=== PATIENT | female | born 1945 | race Caucasian/White ===

== ENCOUNTER 2018-09-16 15:34 | Outpatient (REF) | payer MEDICARE, SELFPAY ==
[2018-09-16 19:39] LABS: Bilirubin Negative (Negative); Blood Negative (Negative); Clarity Sl Cloudy; Glucose Negative (Negative); Ketones Negative (Negative); Leukocyte Esterase Trace (Negative); Nitrite Negative (Negative); Specific Gravity 1.025 (1.005-1.025); Urobilinogen 0.2 EU/dL (Up TO 0.2); pH 5.5 (5-8)
[2018-09-16 19:43] LABS: Anion Gap 8.6 mmol/L (3-11); BUN 13 mg/dL (7-18); CO2 26.4 mmol/L (21.0-32.0); CREATININE 1.46 mg/dL (0.55-1.02); Calcium 7.7 mg/dL (8.5-10.1); Chloride 105 mmol/L (98-107); Estimated GFR 35.22 (mL/min/1.73m2); Glucose 104 mg/dL (70-100); Potassium 3.3 mmol/L (3.5-5.1); Sodium 140 mmol/L (136-145)
== END 2018-09-16 15:54 ==
LOC: NCHCN 15:34
PROVIDERS: PCP Nurse Practitioner Family; Visit Provider Family Medicine
DX: N28.9 Disorder of kidney and ureter, unspecified (principal); R60.0 Localized edema
CPT/HCPCS: 80048; 81003; 81015

== ENCOUNTER 2019-05-23 15:53 | Emergency (ER) | payer MEDICARE, SELFPAY ==
[2019-05-23] VITALS (60 sets, daily range): BP systolic 96–159; BP diastolic 38–138; PULSE 84–107; RESP 14–36; TEMP 36.7; O2SAT 90–96
[2019-05-23 16:23] LABS: BE (Venous) 0.2 mmol/L (-3-3); HCO3 (Venous) 25 mmol/L (22-28); O2 Sat (Venous) 44 % (70-80); TCO2 (Venous) 24 mmol/L (22-29); pCO2 (Venous) 43 mm/Hg (34-47); pH (Venous) 7.38 (7.32-7.43); pO2 (Venous) 26 mm/Hg (28-44)
--- NOTE | 2019-05-23 16:28 | W.ED.GENAD ---
Discharge Plan Disposition Patient Disposition: [facility] Condition: Stable Discharge Details Chief Complaint: Chest Pain Clinical Impression: Unstable angina Primary Care Provider: Tiana Romano ED Provider: Soham Pino Home Meds and New Rx's Prescriptions: No Action omeprazole 40 MG capsule,delayed release(DR/EC) 40 mg PO DAILY RF: 0 Medical Decision Making This is a pleasant 73-year-old female who presents today for evaluation of chest pain. It began 2 to 3 hours ago while she was slicing potatoes. She has associated shortness of breath and pleuritic chest pain. She does have a history of breast and colon cancer 2 years ago. She was given full dose aspirin and nitroglycerin had notable improvement of her symptoms with EMS nitro. Initial EKG shows less than [address] elevation of V2, small Q wave in V4 V5 and V6, no other significant abnormalities. Signs and symptoms are certainly concerning for cardiac etiology of her pain. With no evidence of STEMI on EKG, will continue with laboratory work-up. We will get CT angios to rule out dissection and PE with a history of cancer. We will heparinize the patient, and start her on a nitroglycerin drip. 6:52 PM Patient has had notable improvement of her pain with the nitroglycerin. She is gone from a greater than 10 out of 10 to less than 5 out of 10. She is feeling notably improved with the nitro drip. Currently it is at [address] angiogram results shows no evidence of acute pulmonary emboli dissection or pneumonia per virtual radiology. There is some old compression fractures of the lumbar vertebra, however the patient states that she does know about these already. There is concern for metastatic component however no other lesions are noted. Laboratory work-up shows a hemoglobin of 11.2 which is higher than her normal, renal function appears stable with a creatinine of 1.12. Troponin is less than 0.05. I discussed the case with Dr. Toledo at [facility], and reviewing the case, and the patient's clinical symptoms there is notable concern for unstable angina with her age, cardiac risk factors and symptomatology and nitro improvement. Dr. Cervantes will be the admitting physician. The patient will be transferred by [facility] further management. Heparin and nitro were continued, Plavix will be given. She is already received full dose aspirin. I have extensively reviewed the treatment plan and discharge instructions with the patient. I have addressed all patient concerns at this time. The patient was made aware of what symptoms to monitor for that would warrant a return to the emergency department. Discussed the plan with the patient, they demonstrate verbal understanding and agreement with our assessment and plan at this time. At time of transfer the patient was reassessed and continued to demonstrate current medical stability. No signs of acute respiratory distress requiring intubation, hemodynamic instability requiring pressor support, or rapidly declining mental status. The patient is stable for transport. EKG 16: 00 Rate 81, VT 162, QTc 476, QRS 96, sinus rhythm, less than [address] elevation in V2, no other significant elevation. No significant depression. No inverted T waves. Small Q waves in V4 V5 and V6. FINDINGS: Pulmonary arteries: Normal. No pulmonary emboli. Aorta: Heart: There are is severe atherosclerosis of the thoracic aorta. The the heart is moderately enlarged. There is a pericardial effusion focally measuring up to 19 mm in thickness. Lungs: This prominent pleural-parenchymal scarring in the right upper lobe and mild scarring at the lung bases as well as in the lingula. Pleural space: . No pneumothorax. No pleural effusion. Gallbladder and bile ducts: There is a hepatic artery passing beneath the inferior aspect of the gallbladder. No definite stones are seen the gallbladder. There is no pericholecystic fluid or gallbladder wall thickening. However the common bile duct is dilated to 10 mm. No definite stone is seen within the common bile duct nor is there evidence of a stricture. The visualized pancreas shows no abnormality. The pancreatic duct is within normal limits. Lymph nodes: Unremarkable. No enlarged lymph nodes. Bones/joints: There are 2 contiguous compression fractures in the lower images. I believe these are probably L1 and L2. the compression fracture of L1 is a proximally 70% and of L2 60%. L1 is somewhat sclerotic. A believe the sagittal view of the CT of 12/10/2017 shows these 2 vertebra to be normal in appearance. however, abnormalities were seen in L1 and L2 on the MRI apparently of 01/20/2018. Unfortunately I do not have these images available for comparison. Soft tissues: Unremarkable. IMPRESSION: 1. No evidence of pulmonary emboli or acute pneumonia. 2. Compression fractures of L1 and L2. Appearance of L1 is somewhat worrisome for metastatic disease. On the final report correlation with MRI in January of 2018 is suggested. 3. Dilatation the common bile duct without evidence of stones. Clinical correlation suggested to evaluate if additional studies of the bili track are needed. Thank you for allowing us to participate in the care of your patient. Dictated and Authenticated by: Jero Banegas MD [facility] General Date/Time Provider Initiated Documentation: 05/23/19 15:57. HPI Narrative: This is a 73-year-old female with a past medical history of breast cancer and colon cancer in 2016,17, cholecystectomy, hypertension, previous tobacco abuse, who presents today for evaluation of chest pain. The patient states that 2 to 3 hours ago she was slicing potatoes for dinner when she developed sudden substernal chest pain, it radiates to her neck bilaterally. She does have associated chest heaviness, with shortness of breath and pleuritic chest pain. She denies any recent worsening of the symptoms or symptoms over the last few days, just today. She denies any vomiting or diarrhea but does admit to notable nausea. She denies any previous history of ND, stroke, or PE. She denies any pain in her arms or shoulders. She denies any recent long trips, surgeries or procedures. No other modifying factors. No other complaints at this time. Related Data Home Medications Medication Instructions Recorded Confirmed omeprazole 40 mg PO DAILY 01/19/18 05/23/19 Allergies Allergy/AdvReac Type Severity Reaction Status Date / Time No Known Allergies Allergy Unverified 01/19/18 09:19 General Stated Complaint: Chest Pain JEANIE: 2 Review of Systems Review of Systems All systems reviewed & are unremarkable except as noted in HPI and below PFSH Social History Smoking/Tobacco Use Status: Former Tobacco Use Alcohol Intake: never Drug use: Never Substance use type: does not use Do you feel safe in your relationship?: Yes Exam Narrative Exam Narrative: 1.Const: Well-nourished, Well-developed, appearing stated age 2.Eyes: PERRL, no conjunctival injection, and symmetrical lids. 3.ENT: Atraumatic external nose and ears. Moist MM. Neck: Symmetric, trachea midline, No thyromegaly. 4.CVS: +S1/S2, No murmurs or gallops. Peripheral pulses 2+ and equal in all extremities. Brisk capillary refill in all extremities. Radial pulses +2 bilaterally. 5.RESP: Unlabored respiratory effort. Clear to auscultation bilaterally. No wheezes rales or rhonchi 6.GI: Soft, Nontender/Nondistended, No hepatosplenomegaly. No guarding or rebound. 7.MSK: Normocephalic/Atraumatic, Extremities w/o deformity or ttp No cyanosis or clubbing, Normal movement of all extremities. No pitting edema. 8.Skin: Warm, Dry. No rashes or lesions. 9.Neuro: filament maker II-XII grossly intact. Sensation grossly intact, no focal neurologic deficits. 10.Psych: (AAO) x3. Appropriate mood and affect Course Vital Signs Temperature 36.7 C 05/23/19 15:57 Pulse 89 05/23/19 15:57 Respiratory Rate 16 05/23/19 15:57 Blood Pressure 159/138 H 05/23/19 15:57 Pulse Oximetry 96 05/23/19 15:57 Temperature 36.7 C 05/23/19 15:57 Temperature Source Temporal Artery Scan 05/23/19 15:57 Pulse 89 05/23/19 15:57 Respiratory Rate 16 05/23/19 15:57 Respiratory Effort Short of Breath 05/23/19 16:11 Respiratory Depth Normal 05/23/19 16:11 Respiratory Pattern Normal 05/23/19 16:11 Blood Pressure 159/138 H 05/23/19 15:57 Pulse Oximetry 96 05/23/19 15:57 Oxygen Delivery Method Room Air 05/23/19 15:57 Oxygen Flow Rate 0 05/23/19 15:57 Pain Level 8 05/23/19 16:11
--- NOTE | 2019-05-23 16:31 | ED.GENADUL_ITS ---
Discharge Plan Disposition Patient Disposition: [facility] Condition: Stable Discharge Details Chief Complaint: Chest Pain Clinical Impression: Unstable angina Primary Care Provider: Tiana Romano ED Provider: Soham Pino Home Meds and New Rx's Prescriptions: No Action omeprazole 40 MG capsule,delayed release(DR/EC) 40 mg PO DAILY RF: 0 Medical Decision Making This is a pleasant 73-year-old female who presents today for evaluation of chest pain. It began 2 to 3 hours ago while she was slicing potatoes. She has associated shortness of breath and pleuritic chest pain. She does have a history of breast and colon cancer 2 years ago. She was given full dose aspirin and nitroglycerin had notable improvement of her symptoms with EMS nitro. Initial EKG shows less than [address] elevation of V2, small Q wave in V4 V5 and V6, no other significant abnormalities. Signs and symptoms are certainly concerning for cardiac etiology of her pain. With no evidence of STEMI on EKG, will continue with laboratory work-up. We will get CT angios to rule out dissection and PE with a history of cancer. We will heparinize the patient, and start her on a nitroglycerin drip. 6:52 PM Patient has had notable improvement of her pain with the nitroglycerin. She is gone from a greater than 10 out of 10 to less than 5 out of 10. She is feeli ng notably improved with the nitro drip. Currently it is at [address] angiogram results shows no evidence of acute pulmonary emboli dissection or pneumonia per virtual radiology. There is some old compression fractures of the lumbar vertebra, however the patient states that she does know about these already. There is concern for metastatic component however no other lesions are noted. Laboratory work-up shows a hemoglobin of 11.2 which is higher than her normal, renal function appears stable with a creatinine of 1.12. Troponin is less than 0.05. I discussed the case with Dr. Toledo at [facility], and reviewing the case, and the patient's clinical symptoms there is notable concern for unstable angina with her age, cardiac risk factors and symptomatology and nitro improvement. Dr. Cervantes will be the admitting physician. The patient will be transferred by [facility] further management. Heparin and nitro were continued, Plavix will be given. She is already received full dose aspirin. I have extensively reviewed the treatment plan and discharge instructions with the patient. I have addressed all patient concerns at this time. The patient was made aware of what symptoms to monitor for that would warrant a return to the emergency department. Discussed the plan with the patient, they demonstrate verbal understanding and agreement with our assessment and plan at this time. At time of transfer the patient was reassessed and continued to demonstrate current medical stability. No signs of acute respiratory distress requiring intubation, hemodynamic instability requiring pressor support, or rapidly declining mental status. The patient is stable for transport. EKG 16: 00 Rate 81, NE 162, QTc 476, QRS 96, sinus rhythm, less than [address] elevation in V2, no other significant elevation. No significant depression. No inverted T waves. Small Q waves in V4 V5 and V6. FINDINGS: Pulmonary arteries: Normal. No pulmonary emboli. Aorta: Heart: There are is severe atherosclerosis of the thoracic aorta. The the heart is moderately enlarged. There is a pericardial effusion focally measuring up to 19 mm in thickness. Lungs: This prominent pleural-parenchymal scarring in the right upper lobe and mild scarring at the lung bases as well as in the lingula. Pleural space: . No pneumothorax. No pleural effusion. Gallbladder and bile ducts: There is a hepatic artery passing beneath the inferior aspect of the gallbladder. No definite stones are seen the gallbladder. There is no pericholecystic fluid or gallbladder wall thickening. However the common bile duct is dilated to 10 mm. No definite stone is seen within the common bile duct nor is there evidence of a stricture. The visualized pancreas shows no abnormality. The pancreatic duct is within normal limits. Lymph nodes: Unremarkable. No enlarged lymph nodes. Bones/joints: There are 2 contiguous compression fractures in the lower images. I believe these are probably L1 and L2. the compression fracture of L1 is a proximally 70% and of L2 60%. L1 is somewhat sclerotic. A believe the sagittal view of the CT of 12/10/2017 shows these 2 vertebra to be normal in appearance. however, abnormalities were seen in L1 and L2 on the MRI apparently of 01/20/2018. Unfortunately I do not have these images available for comparison. Soft tissues: Unremarkable. IMPRESSION: 1. No evidence of pulmonary emboli or acute pneumonia. 2. Compression fractures of L1 and L2. Appearance of L1 is somewhat worrisome for metastatic disease. On the final report correlation with MRI in February of 2018 is suggested. 3. Dilatation the common bile duct without evidence of stones. Clinical correlation suggested to evaluate if additional studies of the bili track are needed. Thank you for allowing us to participate in the care of your patient. Dictated and Authenticated by: Jero Banegas MD [facility] General Date/Time Provider Initiated Documentation: 05/23/19 15:57 . HPI Narrative: This is a 73-year-old female with a past medical history of breast cancer and colon cancer in 2016,17, cholecystectomy, hypertension, previous tobacco abuse, who presents today for evaluation of chest pain. The patient states that 2 to 3 hours ago she was slicing potatoes for dinner when she developed sudden substernal chest pain, it radiates to her neck bilaterally. She does have associated chest heaviness, with shortness of breath and pleuritic chest pain. She denies any recent worsening of the symptoms or symptoms over the last few days, just today. She denies any vomiting or diarrhea but does admit to notable nausea. She denies any previous history of AL, stroke, or PE. She denies any pain in her arms or shoulders. She denies any recent long trips, surgeries or procedures. No other modifying factors. No other complaints at this time. Related Data Home Medications Medication Instructions Recorded Confirmed omeprazole 40 mg PO DAILY 01/19/18 05/23/19 Allergies Allergy/AdvReac Type Severity Reaction Status Date / Time No Known Allergies Allergy Unverified 01/19/18 09:19 General Stated Complaint: Chest Pain JEANIE: 2 Review of Systems Review of Systems All systems reviewed & are unremarkable except as noted in HPI and below PFSH Social History Smoking/Tobacco Use Status: Former Tobacco Use Alcohol Intake: never Drug use: Never Substance use type: does not use Do you feel safe in your relationship?: Yes Exam Narrative Exam Narrative: 1.Const: Well-nourished, Well-developed, appearing stated age 2.Eyes: PERRL, no conjunctival injection, and symmetrical lids. 3.ENT: Atraumatic external nose and ears. Moist MM. Neck: Symmetric, trachea midline, No thyromegaly. 4.CVS: +S1/S2, No murmurs or gallops. Peripheral pulses 2+ and equal in all extremities. Brisk capillary refill in all extremities. Radial pulses +2 bilaterally. 5.RESP: Unlabored respiratory effort. Clear to auscultation bilaterally. No wheezes rales or rhonchi 6.GI: Soft, Nontender/Nondistended, No hepatosplenomegaly. No guarding or rebound. 7.MSK: Normocephalic/Atraumatic, Extremities w/o deformity or ttp No cyanosis or clubbing, Normal movement of all extremities. No pitting edema. 8.Skin: Warm, Dry. No rashes or lesions. 9.Neuro: computer application developer II-XII grossly intact. Sensation grossly intact, no focal neurologic deficits. 10.Psych: (AAO) x3. Appropriate mood and affect Course Vital Signs Temperature 36.7 C 05/23/19 15:57 Pulse 89 05/23/19 15:57 Respiratory Rate 16 05/23/19 15:57 Blood Pressure 159/138 H 05/23/19 15:57 Pulse Oximetry 96 05/23/19 15:57 Temperature 36.7 C 05/23/19 15:57 Temperature Source Temporal Artery Scan 05/23/19 15:57 Pulse 89 05/23/19 15:57 Respiratory Rate 16 05/23/19 15:57 Respiratory Effort Short of Breath 05/23/19 16:11 Respiratory Depth Normal 05/23/19 16:11 Respiratory Pattern Normal 05/23/19 16:11 Blood Pressure 159/138 H 05/23/19 15:57 Pulse Oximetry 96 05/23/19 15:57 Oxygen Delivery Method Room Air 05/23/19 15:57 Oxygen Flow Rate 0 05/23/19 15:57 Pain Level 8 05/23/19 16:11
[2019-05-23 16:33] LABS: Abs Immature Grans 0.02 k/cumm (0.0-0.09); Absolute Basophil Count 0.01 k/cumm (0.0-0.2); Absolute Eosinophil Count 0.03 k/cumm (0.0-0.7); Absolute Lymphocyte Count 0.29 k/cumm (1.2-3.4); Absolute Monocyte Count 0.43 k/cumm (0.11-0.7); Absolute Neutrophil Count 7.13 k/cumm (1.2-6.7); Basophils % 0.1; Eosinophils % 0.4; HCT 34.3 % (36.0-46.0); HGB 11.2 g/dL (12.0-15.5); Immature Grans % 0.3; Lymphocytes % 3.7; Mean Corp. HGB Concentration 32.7 g/dL (32.0-36.0); Mean Corpuscular Hemoglobin 30.3 pg (27.0-33.0); Mean Corpuscular Volume 92.7 fL (80-95); Mean Platelet Volume 9.1 fL (8.0-11.0); Monocytes % 5.4; Neutrophils % 90.1; Platelet Count 234 x1000/uL (130-400); RBC Distribution Width 14.6 % (11.7-14.6); White Blood Cell Count 7.91 k/cumm (4.4-10.8)
[2019-05-23 16:40] LABS: INR 0.9 (0.9-1.1); PTT Activated 20.8 sec (21.0-31.4); Prothrombin Time 9.4 sec (9.3-11.0)
[2019-05-23 16:44] LABS: ALT 15 U/L (12-78); AST 13 U/L (15-37); Albumin 3.1 g/dL (3.4-5.0); Alkaline Phosphatase 136 U/L (46-116); Anion Gap 12.6 mmol/L (3-11); BUN 18 mg/dL (7-18); Bilirubin, Total 0.6 mg/dL (0.2-1.0); CO2 24.4 mmol/L (21.0-32.0); CREATININE 1.12 mg/dL (0.55-1.02); Calcium 9.3 mg/dL (8.5-10.1); Chloride 102 mmol/L (98-107); Estimated GFR 47.82 (mL/min/1.73m2); Glucose 130 mg/dL (70-100); Lipase 114 U/L (73-393); Potassium 3.3 mmol/L (3.5-5.1); Sodium 139 mmol/L (136-145); Total Protein 7.9 g/dL (6.4-8.2); Troponin I < 0.05 ng/mL (0.00-0.06)
--- NOTE | 2019-05-23 17:15 | DI.CT_ITS ---
SYMPTOM/DIAGNOSIS: SOB, CP, CANCER CHEST CT FOR PULMONARY EMBOLISM There is no evidence of pulmonary emboli or aortic dissection. There are atherosclerotic changes of the thoracic aorta which appears normal in diameter. Coronary artery calcifications are seen. There is a small pericardial effusion. There is enlargement of the left atrium and left ventricle. Skin thickening and scarring vs mass is noted in the right breast. There are increased interstitial densities seen in the anterior right upper and middle lobes consistent with post radiation therapy changes. The lung bases show dependent changes. No adenopathy or pulmonary nodules are seen. There is stable biliary dilatation when compared with the previous CT of the abdomen and pelvis 10 Dec 2017. The patient is status post cholecystectomy The visualized portions of the upper abdominal vasculature is unremarkable with the exception of atherosclerotic change. The spleen is normal in size. L1 and L2 compression fractures are again noted. The L-1 compression fracture appears more severe when compared with previous MRI of the lumbar spine dated 20 Jan 2018. The L-2 compression fracture appears stable. IMPRESSION: No evidence of pulmonary emboli. interval worsening of compression fracture of L-1 since Jan 2018.
[2019-05-23] MEDS: Omnipaque 350 MG/ML 100 ML BTL 70 ML IJ (17:17)
[2019-05-23] MEDS: Normal Saline Flush 10 ML SYR IVP (17:18)
--- NOTE | 2019-05-23 17:45 | DI.VRAD_ITS ---
EXAM: CT Angiography Chest With Contrast EXAM DATE/TIME: 05/23/2019 4:00 PM CLINICAL HISTORY: 73 years old, female; Patient HX: Patient sts increasing chest pain upper chest pain bilaterally radiating to neck. Breast cancer (r breast) 3 years ago. No surgeries; Additional info: Reduced dose to 70 ml due to kidney function low gfr. TECHNIQUE: Imaging protocol: Axial computed tomographic angiography images of the chest with intravenous contrast using CT angiography protocol. Coronal and sagittal reformatted images were created and reviewed. 3D rendering: MIP reconstructed images were created and reviewed. Radiation optimization: All CT scans at this facility use at least one of these dose optimization techniques: automated exposure control; mA and/or kV adjustment per patient size (includes targeted exams where dose is matched to clinical indication); or iterative reconstruction. Contrast material: OMNIPAQUE 350; Contrast volume: 70 ml; Contrast route: IV; COMPARISON: CR CHEST 2 VIEWS PA,LAT 12/10/2017 6:52 PM FINDINGS: Pulmonary arteries: Normal. No pulmonary emboli. Aorta: Heart: There are is severe atherosclerosis of the thoracic aorta. The the heart is moderately enlarged. There is a pericardial effusion focally measuring up to 19 mm in thickness. Lungs: This prominent pleural-parenchymal scarring in the right upper lobe and mild scarring at the lung bases as well as in the lingula. Pleural space: . No pneumothorax. No pleural effusion. Gallbladder and bile ducts: There is a hepatic artery passing beneath the inferior aspect of the gallbladder. No definite stones are seen the gallbladder. There is no pericholecystic fluid or gallbladder wall thickening. However the common bile duct is dilated to 10 mm. No definite stone is seen within the common bile duct nor is there evidence of a stricture. The visualized pancreas shows no abnormality. The pancreatic duct is within normal limits. Lymph nodes: Unremarkable. No enlarged lymph nodes. Bones/joints: There are 2 contiguous compression fractures in the lower images. I believe these are probably L1 and L2. the compression fracture of L1 is a proximally 70% and of L2 60%. L1 is somewhat sclerotic. A believe the sagittal view of the CT of 12/10/2017 shows these 2 vertebra to be normal in appearance. however, abnormalities were seen in L1 and L2 on the MRI apparently of 01/20/2018. Unfortunately I do not have these images available for comparison. Soft tissues: Unremarkable. IMPRESSION: 1. No evidence of pulmonary emboli or acute pneumonia. 2. Compression fractures of L1 and L2. Appearance of L1 is somewhat worrisome for metastatic disease. On the final report correlation with MRI in January of 2018 is suggested. 3. Dilatation the common bile duct without evidence of stones. Clinical correlation suggested to evaluate if additional studies of the bili track are needed. Dictated and Authenticated by: Jero Banegas MD. Ordering:ADRIA Rousseau MD
[2019-05-23] MEDS: MORPHine 10 MG/ML VIAL 4 MG IVP (18:58)
[2019-05-23] MEDS: Clopidogrel 300 MG TAB PO (18:58)
--- NOTE | 2019-05-23 19:03 | NUR.NOTE ---
Nursing Note: nitroglycerin continually titrated to blood pressure
--- NOTE | 2019-05-23 19:22 | NUR.NOTE ---
Nursing Note: Call out to SHAHIDA Herrera states that she is unable to take report at this time. states that she will call back in 5 minutes
--- NOTE | 2019-05-23 19:33 | NUR.NOTE ---
Nursing Note: Report given to Jennifer PINEDO at [facility]
== END 2019-05-23 19:18 | disposition short-term general hospital (02) ==
PROVIDERS: Emergency Provider Student in an Organized Health Care Education/Training Program; PCP Nurse Practitioner Family
DX: I20.0 Unstable angina (principal); I10 Essential (primary) hypertension; Z87.891 Personal history of nicotine dependence
CPT/HCPCS: 71275; 80053; 82805; 83690; 93005; 96365; 96366; 96368; 96375; 99285; 84484; 85025; 85610; 85730; 93010; J2270; J3490

== ENCOUNTER 2019-06-04 12:09 | Inpatient (IN) | payer MEDICARE, SELFPAY ==
[2019-06-04] VITALS (98 sets, daily range): BP systolic 101–151; BP diastolic 44–104; PULSE 79–108; RESP 12–35; TEMP 36.9–37.3; O2SAT 85–98
--- NOTE | 2019-06-04 12:17 | DI.RAD_ITS ---
SYMPTOMS/DIAGNOSIS: SHORTNESS OF BREATH, CHEST PAIN AP AND LATERAL CHEST: Comparison is made with [id number]. The heart appears enlarged which may be partially secondary to projection. There is minimal blunting at both costophrenic angles. There are mildly increased interstitial markings, consistent with fibrotic changes. No focal infiltrate or overt pulmonary edema is seen. IMPRESSION: Mild cardiomegaly. Minimal blunting at the costophrenic angles could indicate tiny effusions.
--- NOTE | 2019-06-04 12:26 | W.ED.GENAD ---
Discharge Plan Disposition Patient Disposition: [facility] INPATIENT Condition: Serious Discharge Details Chief Complaint: Chest Pain Clinical Impression: Severe aortic stenosis Admit Date/Time: 06/04/19 16:27 Admit Provider: Shameka Bateman Attending Provider: Shameka Bateman Primary Care Provider: Tiana Romano ED Provider: Jacqueline Meade Discharge Data Discharge Date/Time-TO BE ENTERED AT DEPARTURE: 06/04/19 17:11 Medical Decision Making Patient is 73-year-old female with history of anemia, hypothyroidism, breast cancer, severe aortic stenosis, unstable angina, ileostomy, presenting today with chief complaint of chest pain shortness of breath. She was evaluated by her primary care after recent admission and was endorsing a shortness of breath and chest pain, worse with exertion. Primary care therefore referred her here. Patient was recently admitted to [facility] and discharged on 628 5:19 days today. During that time, patient underwent a cardiac catheterization and echo. Patient reports that initially she was continuing to have some of her chest pain shortness of breath although this has increased over the past 24 hours. She does report that the pain today is not as severe as it had been prior to her recent admission. [place] [facility] [place] States that her majoor concern is that her SOB has made it difficult to do simple tasks at home . concerned for possible ACS although she did have a clean catheterization recently. Primarily concerned for possible worsening of her . Also concicered other such sources as well of respirtiatory ailments. Plant ot obtain cxr, labs and ekg. EKG was reviewed by Dr. Jones, no evidence of STEMI. Please see his note. Patient take 81 mg of aspirin this morning, we will augment this for full dosing Review of echo shows severe aortic stenosis with preserved ejection fraction. Normal cardiac coronary arteries with low filling pressures. At the time of discharge, Lasix was stopped. Labs significant for leukocytosis with a white count of 11.19. Patient is anemic at 10.5, this is chronic for the patient. Her creatinine is elevated at 1.09, again this is chronic for the patient. Magnesium is low at 1.5, will replenish this today. BNP is elevated at 1600. Troponin remains within normal range. Patient is resting comfortably. Her heart rate which is initially 102 is come down to 90. She is denying any chest pain or shortness of breath at this time. Awaiting read from radiologist on chest x-ray. I did review this with Dr. Jones, we note cardiomegaly but do not see any blunting of the costophrenic angle. Will consult [place] [facility] [place] patient's recurrence of symptoms and her severe aortic stenosis Consult[place]. German [place] [facility] Advised the patient needed a specialized CT prior to having the TAVR area advised at this time there is no emergent need to transfer the patient to their facility particularly as she is unable to have a TAVR performed over the weekend. However, they will accept the patient on Friday for expedited TAVR. Plan for the imaging needed preoperatively on Friday with TAVR hopefully the beginning of the week. Advised to try to keep the patient here over the weekend to continue to monitor her particular if she is having such difficulty with her ADLs secondary to her shortness of breath. Planned to given patient Lasix with her elevate BNP and SOB but she declines any at this time Consulted with hospitalist who agrees to admission for continued monitoring with plan for the patient to be transferred [place] [facility] [place]. Discussed plan with the patient who is in agreement. HPI General Mode of arrival: wheelchair. Date/Time Provider Initiated Documentation: 06/04/19 12:17. Limitations to Documentation: no limitations. Information obtained by: patient and RN notes reviewed. History of Present Illness 73 year old F presents to the emergency department with the chief complaint of chest pain, shortness of breath, described as moderate and similar to prior episodes, Quality is described as stabbing, and is localized to the chest. Patient extremity. Patient started experiencing this hour(s) (0300) and it has been intermittent. Immobilization improves symptom(s), Movement worsens symptoms . Patient notes chest pain; denies cough, diaphoresis, fever/chills, headaches, loss of appetite, nausea/vomiting, rash, shortness of breath, syncope and weakness. Patient did receive the following treatments prior to arrival, none Related Data Home Medications Medication Instructions Recorded Confirmed aspirin [Aspirin Low Dose] 81 mg PO DAILY 06/04/19 06/04/19 omeprazole 20 mg PO DAILY 06/04/19 06/04/19 metoprolol succinate 25 mg PO DAILY 06/05/19 06/05/19 Allergies Allergy/AdvReac Type Severity Reaction Status Date / Time No Known Allergies Allergy Unverified 01/19/18 09:19 General Stated Complaint: Chest Pain JEANIE: 2 Review of Systems Constitutional Reports as per HPI, Denies chills, Denies fever(s), Denies headache(s), Denies lethargy and Denies poor appetite Eyes Denies change in vision ENT Denies dizziness and Denies headache(s) Cardiovascular Reports as per HPI, Reports chest pain, Reports chest pain at rest, Reports chest pain with activity, Denies rapid heart rate, Denies pedal edema, Denies leg edema, Denies lightheadedness, Reports dyspnea, Reports dyspnea on exertion and Denies slow heart rate Respiratory Reports as per HPI, Denies chest congestion, Denies cough, Denies pain on inspiration, Denies pain with cough, Reports dyspnea, Reports dyspnea on exertion and Denies wheezing Gastrointestinal Reports as per HPI, Denies abdominal pain, Denies diarrhea, Denies nausea and Denies vomiting Musculoskeletal Reports as per HPI and Denies back pain Integumentary/Breasts Reports as per HPI and Denies rash Neurologic Reports as per HPI, Denies dizziness and Denies headache(s) Allergic/Immunologic Denies wheezing [facility] Medical History Aortic stenosis, severe (Chronic) GERD (gastroesophageal reflux disease) (Chronic) Hypertension (Chronic) H/O malignant neoplasm of breast (Resolved) H/O malignant neoplasm of colon (Resolved) Surgical History H/O cardiac catheterization (Chronic) H/O colonoscopy (Chronic) History of esophagogastroduodenoscopy (EGD) (Chronic) S/P cholecystectomy (Chronic) S/P right hemicolectomy (Chronic) Status post closure of ileostomy (Chronic) Status post right breast lumpectomy (Chronic) Family History Mother Stroke Hypertension Son Diabetes Son Diabetes Father Cancer Brother Cancer Social History Smoking/Tobacco Use Status: Former Tobacco Use Pack-years: 141 Tobacco: How many years used: 47 Alcohol Intake: never Drug use: Never Substance use type: does not use Do you feel safe at home: Yes Do you feel safe in your relationship?: Yes Exam Const General: cooperative, healthy appearing, comfortable, no acute distress and well developed Nutritional Appearance: average body habitus and well nourished Orientation: alert, awake and oriented x3 HENMT Head: normal to inspection Ears: hearing grossly normal bilaterally Mouth: moist mucous membranes Eyes General: appearance abnormal, both eyes (Disconjugate) Chest Chest: normal inspection of the chest, normal palpation of entire chest wall and no crepitus Resp Effort & Inspection: normal respiratory effort, able to speak in complete sentences and no respiratory distress Auscultation: clear to auscultation bilaterally, no rales, no rhonchi and no wheezes Cardio Rate: regular rate Rhythm: regular rhythm Heart Sounds: murmur systolic GI Inspection: normal to inspection, no edema and non-distended Palpation: soft, no hepatosplenomegaly, not firm, no guarding, not rigid and nontender Auscultation: normal bowel sounds Back/Spine/Pelvis Back: no CVA tenderness Thoracic/Lumbar Spine: thoracic and lumbar spine normal to inspection Skin General skin exam: no rashes or lesions noted Trauma: no lacerations or abrasions Neuro General: alert, awake and oriented x3 Cognition: normal cognition Speech: speech normal Gait: normal gait Extrem General: normal to inspection, normal capillary refill, no pedal edema, no calf tenderness and normal gait Psych Appearance: grossly normal and well kempt Mental Status: mental status grossly normal Speech and Movement: speech and movement normal Course Vital Signs Temperature 37.3 C 06/04/19 12:14 Pulse 102 H 06/04/19 12:14 Respiratory Rate 20 06/04/19 12:14 Blood Pressure 119/104 H 06/04/19 12:14 Pulse Oximetry 98 06/04/19 12:14 Temperature 37.3 C 06/04/19 12:14 Temperature Source Oral 06/04/19 12:14 Pulse 102 H 06/04/19 12:14 Respiratory Rate 20 06/04/19 12:14 Respiratory Effort Non-Labored 06/04/19 12:17 Blood Pressure 119/104 H 06/04/19 12:14 Blood Pressure Position Sitting 06/04/19 12:14 Pulse Oximetry 98 06/04/19 12:14 Oxygen Delivery Method Room Air 06/04/19 12:14 Oxygen Flow Rate 0 06/04/19 12:14
--- NOTE | 2019-06-04 12:32 | ED.GENADUL_ITS ---
Discharge Plan Disposition Patient Disposition: [facility] INPATIENT Condition: Serious Discharge Details Chief Complaint: Chest Pain Clinical Impression: Severe aortic stenosis Admit Date/Time: 06/04/19 16:27 Admit Provider: Shameka Bateman Attending Provider: Shmaeka Bateman Primary Care Provider: Tiana Romano ED Provider: Jacqueline Meade Discharge Data Discharge Date/Time-TO BE ENTERED AT DEPARTURE: 06/04/19 17:11 Medical Decision Making Patient is 73-year-old female with history of anemia, hypothyroidism, breast cancer, severe aortic stenosis, unstable angina, ileostomy, presenting today with chief complaint of chest pain shortness of breath. She was evaluated by her primary care after recent admission and was endorsing a shortness of breath and chest pain, worse with exertion. Primary care therefore referred her here. Patient was recently admitted to [facility] and discharged on 628 5:19 days today. During that time, patient underwent a cardiac catheterization and echo. Patient reports that initially she was continuing to have some of her chest pain shortness of breath although this has increased over the past 24 hours. She does report that the pain today is not as severe as it had been prior to her recent admission. Plan for TAVR in future at [facility] [place]. States that her majoor concern is that her SOB has made it difficult to do simple tasks at home . concerned for possible ACS although she did have a clean catheterization recently. Primarily concerned for possible worsening of her . Also concicered other such sources as well of respirtiatory ailments. Plant ot obtain cxr, labs and ekg. EKG was reviewed by Dr. Jones, no evidence of STEMI. Please see his note. Patient take 81 mg of aspirin this morning, we will augment this for full dosing Review of echo shows severe aortic stenosis with preserved ejection fraction. Normal cardiac coronary arteries with low filling pressures. At the time of discharge, Lasix was stopped. Labs significant for leukocytosis with a white count of 11.19. Patient is anemic at 10.5, this is chronic for the patient. Her creatinine is elevated at 1.09, again this is chronic for the patient. Magnesium is low at 1.5, will replenish this today. BNP is elevated at 1600. Troponin remains within normal range. Patient is resting comfortably. Her heart rate which is initially 102 is come down to 90. She is denying any chest pain or shortness of breath at this time. Awaiting read from radiologist on chest x-ray. I did review this with Dr. Jones, we note cardiomegaly but do not see any blunting of the costophrenic angle. Will consult with [facility] [place] regarding the patient's recurrence of symptoms and her severe aortic stenosis Consulted with Dr. German at [facility] [place]. Advised the patient needed a specialized CT prior to having the TAVR area advised at this time there is no emergent need to transfer the patient to their facility particularly as she is unable to have a TAVR performed over the weekend. However, they will accept the patient on Friday for expedited TAVR. Plan for the imaging needed preoperatively on Friday with TAVR hopefully the beginning of the week. Advised to try to keep the patient here over the weekend to continue to monitor her particular if she is having such difficulty with her ADLs secondary to her shortness of breath. Planned to given patient Lasix with her elevate BNP and SOB but she declines any at this time Consulted with hospitalist who agrees to admission for continued monitoring with plan for the patient to be transferred to [facility] [place] on Friday with expedited TAVR. Discussed plan with the patient who is in agreement. HPI General Mode of arrival: wheelchair . Date/Time Provider Initiated Documentation: 06/04/19 12:17 . Limitations to Documentation: no limitations . Information obtained by: patient and RN notes reviewed . History of Present Illness 73 year old F presents to the emergency department with the chief complaint of chest pain, shortness of breath, described as moderate and simila r to prior episodes, Quality is described as stabbing, and is localized to the chest. Patient extremity. Patient started experiencing this hour(s) (0300) and it has been intermittent. Immobilization improves symptom(s), Movement worsens symptoms . Patient notes chest pain; denies cough, diaphoresis, fever/chills, headaches, loss of appetite, nausea/vomiting, rash, shortness of breath, syncope and weakness. Patient did receive the following treatments prior to arrival, none Related Data Home Medications Medication Instructions Recorded Confirmed aspirin [Aspirin Low Dose] 81 mg PO DAILY 06/04/19 06/04/19 omeprazole 20 mg PO DAILY 06/04/19 06/04/19 metoprolol succinate 25 mg PO DAILY 06/05/19 06/05/19 Allergies Allergy/AdvReac Type Severity Reaction Status Date / Time No Known Allergies Allergy Unverified 01/19/18 09:19 General Stated Complaint: Chest Pain JEANIE: 2 Review of Systems Constitutional Reports as per HPI, Denies chills, Denies fever(s), Denies headache(s), Denies lethargy and Denies poor appetite Eyes Denies change in vision ENT Denies dizziness and Denies headache(s) Cardiovascular Reports as per HPI, Reports chest pain, Reports chest pain at rest, Reports chest pain with activity, Denies rapid heart rate, Denies pedal edema, Denies leg edema, Denies lightheadedness, Reports dyspnea, Reports dyspnea on exertion and Denies slow heart rate Respiratory Reports as per HPI, Denies chest congestion, Denies cough, Denies pain on inspiration, Denies pain with cough, Reports dyspnea, Reports dyspnea on exertion and Denies wheezing Gastrointestinal Reports as per HPI, Denies abdominal pain, Denies diarrhea, Denies nausea and Denies vomiting Musculoskeletal Reports as per HPI and Denies back pain Integumentary/Breasts Reports as per HPI and Denies rash Neurologic Reports as per HPI, Denies dizziness and Denies headache(s) Allergic/Immunologic Denies wheezing [facility] Medical History Aortic stenosis, severe (Chronic) GERD (gastroesophageal reflux disease) (Chronic) Hypertension (Chronic) H/O malignant neoplasm of breast (Resolved) H/O malignant neoplasm of colon (Resolved) Surgical History H/O cardiac catheterization (Chronic) H/O colonoscopy (Chronic) History of esophagogastroduodenoscopy (EGD) (Chronic) S/P cholecystectomy (Chronic) S/P right hemicolectomy (Chronic) Status post closure of ileostomy (Chronic) Status post right breast lumpectomy (Chronic) Family History Mother Stroke Hypertension Son Diabetes Son Diabetes Father Cancer Brother Cancer Social History Smoking/Tobacco Use Status: Former Tobacco Use Pack-years: 141 Tobacco: How many years used: 47 Alcohol Intake: never Drug use: Never Substance use type: does not use Do you feel safe at home: Yes Do you feel safe in your relationship?: Yes Exam Const General: cooperative, healthy appearing, comfortable, no acute distress and well developed Nutritional Appearance: average body habitus and well nourished Orientation: alert, awake and oriented x3 HENMT Head: normal to inspection Ears: hearing grossly normal bilaterally Mouth: moist mucous membranes Eyes General: appearance abnormal, both eyes (Disconjugate) Chest Chest: normal inspection of the chest, normal palpation of entire chest wall and no crepitus Resp Effort & Inspection: normal respiratory effort, able to speak in complete sentences and no respiratory distress Auscultation: clear to auscultation bilaterally, no rales, no rhonchi and no wheezes Cardio Rate: regular rate Rhythm: regular rhythm Heart Sounds: murmur systolic GI Inspection: normal to inspection, no edema and non-distended Palpation: soft, no hepatosplenomegaly, not firm, no guarding, not rigid and nontender Auscultation: normal bowel sounds Back/Spine/Pelvis Back: no CVA tenderness Thoracic/Lumbar Spine: thoracic and lumbar spine normal to inspection Skin General skin exam: no rashes or lesions noted Trauma: no lacerations or abrasions Neuro General: alert, awake and oriented x3 Cognition: normal cognition Speech: speech normal Gait: normal gait Extrem General: normal to inspection, normal capillary refill, no pedal edema, no calf tenderness and normal gait Psych Appearance: grossly normal and well kempt Mental Status: mental status grossly normal Speech and Movement: speech and movement normal Course Vital Signs Temperature 37.3 C 06/04/19 12:14 Pulse 102 H 06/04/19 12:14 Respiratory Rate 20 06/04/19 12:14 Blood Pressure 119/104 H 06/04/19 12:14 Pulse Oximetry 98 06/04/19 12:14 Temperature 37.3 C 06/04/19 12:14 Temperature Source Oral 06/04/19 12:14 Pulse 102 H 06/04/19 12:14 Respiratory Rate 20 06/04/19 12:14 Respiratory Effort Non-Labored 06/04/19 12:17 Blood Pressure 119/104 H 06/04/19 12:14 Blood Pressure Position Sitting 06/04/19 12:14 Pulse Oximetry 98 06/04/19 12:14 Oxygen Delivery Method Room Air 06/04/19 12:14 Oxygen Flow Rate 0 06/04/19 12:14
[2019-06-04] MEDS: Aspirin 81 MG CHEW 324 MG CH (12:34)
[2019-06-04 12:36] LABS: Absolute Basophil Count 0.01 k/cumm (0.0-0.2); Absolute Eosinophil Count 0.01 k/cumm (0.0-0.7); Absolute Lymphocyte Count 0.27 k/cumm (1.2-3.4); Absolute Monocyte Count 0.68 k/cumm (0.11-0.7); Absolute Neutrophil Count 10.12 k/cumm (1.2-6.7); Basophils % 0.1; Eosinophils % 0.1; HCT 32.3 % (36.0-46.0); HGB 10.5 g/dL (12.0-15.5); Immature Grans % 0.9; Lymphocytes % 2.4; Mean Corp. HGB Concentration 32.5 g/dL (32.0-36.0); Mean Corpuscular Hemoglobin 29.7 pg (27.0-33.0); Mean Corpuscular Volume 91.2 fL (80-95); Mean Platelet Volume 9.1 fL (8.0-11.0); Monocytes % 6.1; Neutrophils % 90.4; Platelet Count 382 x1000/uL (130-400); RBC 3.54 m/cumm (4.00-5.20); RBC Distribution Width 14.5 % (11.7-14.6); White Blood Cell Count 11.19 k/cumm (4.4-10.8)
[2019-06-04] MEDS: Normal Saline 1,000 ML 125 ML IV (12:44)
[2019-06-04 13:40] LABS: PTT Activated 25.9 sec (21.0-31.4); Prothrombin Time 9.8 sec (9.3-11.0)
[2019-06-04 13:48] LABS: ALT 21 U/L (12-78); AST 21 U/L (15-37); Albumin 2.2 g/dL (3.4-5.0); Alkaline Phosphatase 144 U/L (46-116); Anion Gap 8.7 mmol/L (3-11); BUN 15 mg/dL (7-18); Bilirubin, Total 0.6 mg/dL (0.2-1.0); CO2 25.3 mmol/L (21.0-32.0); CREATININE 1.09 mg/dL (0.55-1.02); Chloride 102 mmol/L (98-107); Estimated GFR 49.34 (mL/min/1.73m2); Glucose 96 mg/dL (70-100); Magnesium 1.5 mg/dL (1.8-2.4); NT-proBNP 1613 pg/mL; Potassium 3.6 mmol/L (3.5-5.1); Sodium 136 mmol/L (136-145); Total Protein 7.3 g/dL (6.4-8.2)
[2019-06-04 13:49] LABS: Troponin I < 0.05 ng/mL (0.00-0.06)
[2019-06-04] MEDS: Magnesium Oxide 400 MG TAB 800 MG PO (15:20)
--- NOTE | 2019-06-04 19:13 | W.PM.HP.N ---
Date of service: 06/04/19 Time of Service: 19:13 Assessment and Plan (1) Severe aortic stenosis: Current visit: Yes Status: Acute severe to critical and symptomatic. Will trend troponins and observe on telemetry. Plan is to transfer the patient [place] [facility] [place] for aortic valve replacement (TAVR vs open). Avoid nitrates. (2) Acute CHF: Current visit: Yes Status: Acute Will give 1 dose of 20 mg of PO lasix. Monitor I/O's and daily weights. CHF is likely due to aortic stenosis (3) GERD (gastroesophageal reflux disease): Current visit: Yes Status: Chronic Continue PPI (4) Hypertension: Current visit: Yes Status: Chronic Not currently on therapy. Will monitor, but I would not start any new medications prior to surgery (5) Normocytic anemia: Current visit: Yes Status: Chronic Monitor H/H. Will obtain anemia studies. (6) Hypomagnesemia: Current visit: Yes Status: Acute Replete (7) Discharge planning issues: Current visit: Yes Status: Acute Full code Accept[place] at [facility] [place] on Friday (8) DVT prophylaxis: Current visit: Yes Status: Acute Lovenox History of Present Illness Chief Complaint: Sent to ED from PCP's office for chest pain and shortness of breath Narrative: Ms Alvarado is a 73 year old female with PMHx of severe aortic stenosis, undergoing workup for aortic valve replacement, as well as hypertension, GERD, breast and colon cancers in remission, who has been having on and off, but mostly continuous L-sided chest pains radiation to her neck and L shoulder since 3 am today. The patient also felt short of breath and nauseated. She reports a slight chest pain when she takes a deep breath. The chest pain was still present during her evaluation in the ED and ended right before she came upstairs to the ICU. [facility] cardi[place] team was contacted by ED provider - the patient is preemptively accepted in transfer to [facility] on Friday by Dr German for an expedited TAVR. The patient states she sleeps on 2 pillows, has not noticed that she requires more pillows than that and specifically denies PND and edema. She does get short of breath just walking around the house and minimal distances. Review of Systems Review of Systems 12 systems reviewed. Pertinent positives and negatives as per HPI. [facility] Medical History Aortic stenosis, severe (Chronic) GERD (gastroesophageal reflux disease) (Chronic) Hypertension (Chronic) H/O malignant neoplasm of breast (Resolved) H/O malignant neoplasm of colon (Resolved) Surgical History H/O cardiac catheterization (Chronic) H/O colonoscopy (Chronic) History of esophagogastroduodenoscopy (EGD) (Chronic) S/P cholecystectomy (Chronic) S/P right hemicolectomy (Chronic) Status post closure of ileostomy (Chronic) Status post right breast lumpectomy (Chronic) Family History Mother Stroke Hypertension Son Diabetes Son Diabetes Father Cancer Brother Cancer Social History Smoking/Tobacco Use Status: Former Tobacco Use Pack-years: 141 Tobacco: How many years used: 47 Alcohol Intake: never Drug use: Never Substance use type: does not use Do you feel safe at home: Yes Do you feel safe in your relationship?: Yes Meds Home Medications Medication Instructions Recorded Confirmed Type aspirin [Aspirin Low Dose] 81 mg PO DAILY 06/04/19 06/04/19 History omeprazole 20 mg PO DAILY 06/04/19 06/04/19 History Allergies Allergy/AdvReac Type Severity Reaction Status Date / Time No Known Allergies Allergy Unverified 01/19/18 09:19 Exam Narrative Exam Narrative: General: Very pleasant elderly female, sitting at the edge of the bed, no shortness of breath observed while telling me her history Neurological: A&Ox3, disconjugate eye movements (L eye with deviation to the left), otherwise no noted deficits Psychiatric: appropriate speech pattern/content Skin: intact HEENT: Atraumatic, normocephalic, disconjugate eye movements, moist mucous membraines, clear oropharynx, no submandibular or cervical lymphadenopathy, no goiter or JVD Cardiovascular: RRR, + MI Lungs: quiet crackles at B bases Gastrointestinal: abdomen is soft, nontender, nondistended Extremities: trace edema BLE's, no c/c Results Imaging Additional studies: EKG: Sinus tach, HR 103, no acute ischemia CXR: : Mild cardiomegaly. Minimal blunting at the costophrenic angles could indicate tiny effusions. Labs : 06/04/19 12:15 06/04/19 13:05 Laboratory Results - last 24 hr 06/04/19 06/04/19 06/04/19 12:15 12:15 12:15 WBC 11.19 H RBC 3.54 L Hgb 10.5 L Hct 32.3 L MCV 91.2 MCH 29.7 MCHC 32.5 RDW 14.5 Plt Count 382 D MPV 9.1 Immature Gran % 0.9 Neutrophils % 90.4 Lymphocytes % 2.4 Monocytes % 6.1 Eosinophils % 0.1 Basophils % 0.1 Absolute Neutrophils 10.12 H Absolute Lymphocytes 0.27 L Absolute Monocytes 0.68 Absolute Eosinophils 0.01 Absolute Basophils 0.01 PT Cancelled INR Cancelled APTT Cancelled Sodium Cancelled Potassium Cancelled Chloride Cancelled Carbon Dioxide Cancelled Anion Gap Cancelled BUN Cancelled Creatinine Cancelled Estimated GFR/1.73 m2 Cancelled Glucose Cancelled Calcium Cancelled Magnesium Cancelled Total Bilirubin Cancelled AST Cancelled ALT Cancelled Alkaline Phosphatase Cancelled Troponin I Cancelled NT-Pro-B Natriuret Pep Cancelled Total Protein Cancelled Albumin Cancelled 06/04/19 06/04/19 13:05 13:05 WBC RBC Hgb Hct MCV MCH MCHC RDW Plt Count MPV Immature Gran % Neutrophils % Lymphocytes % Monocytes % Eosinophils % Basophils % Absolute Neutrophils Absolute Lymphocytes Absolute Monocytes Absolute Eosinophils Absolute Basophils PT 9.8 INR 1.0 APTT 25.9 Sodium 136 Potassium 3.6 Chloride 102 Carbon Dioxide 25.3 Anion Gap 8.7 BUN 15 Creatinine 1.09 H Estimated GFR/1.73 m2 49.34 Glucose 96 Calcium 9.0 Magnesium 1.5 L Total Bilirubin 0.6 AST 21 ALT 21 Alkaline Phosphatase 144 H Troponin I < 0.05 NT-Pro-B Natriuret Pep 1613 H Total Protein 7.3 Albumin 2.2 L Last Vital Signs Temp 36.9 C 06/04/19 17:10 Pulse 85 06/04/19 18:01 Resp 21 06/04/19 18:01 BP 132/47 L 06/04/19 18:01 Pulse Ox 96 06/04/19 18:01
--- NOTE | 2019-06-04 19:28 | HPE_ITS ---
Date of service: 06/04/19 Time of Service: 19:13 Assessment and Plan (1) Severe aortic stenosis: Current visit: Yes Status: Acute severe to critical and symptomatic. Will trend troponins and observe on telemetry. Plan is to transfer the patient to [facility] on Friday for aortic valve replacement (TAVR vs open). Avoid nitrates. (2) Acute CHF: Current visit: Yes Status: Acute Will give 1 dose of 20 mg of PO lasix. Monitor I/O's and daily weights. CHF is likely due to aortic stenosis (3) GERD (gastroesophageal reflux disease): Current visit: Yes Status: Chronic Continue PPI (4) Hypertension: Current visit: Yes Status: Chronic Not currently on therapy. Will monitor, but I would not start any new medications prior to surgery (5) Normocytic anemia: Current visit: Yes Status: Chronic Monitor H/H. Will obtain anemia studies. (6) Hypomagnesemia: Current visit: Yes Status: Acute Replete (7) Discharge planning issues: Current visit: Yes Status: Acute Full code Accepted at [facility] for transfer on Friday (8) DVT prophylaxis: Current visit: Yes Status: Acute Lovenox History of Present Illness Chief Complaint: Sent to ED from PCP's office for chest pain and shortness of breath Narrative: Ms Alvarado is a 73 year old female with PMHx of severe aortic stenosis, undergoing workup for aortic valve replacement, as well as hy pertension, GERD, breast and colon cancers in remission, who has been having on and off, but mostly continuous L-sided chest pains radiation to her neck and L shoulder since 3 am today. The patient also felt short of breath and nauseated. She reports a slight chest pain when she takes a deep breath. The chest pain was still present during her evaluation in the ED and ended right before she came u pstairs to the ICU. [facility] cardiology team was contacted by ED provider - the patient is preemptively accepted in transfer to [facility] on Friday by Dr German for an expedited TAVR. The patient states she sleeps on 2 pillows, has not noticed that she requires more pillows than that and specifically denies PND and edema. She does get short of breath just walking around the house and minimal distances. Review of Systems Review of Systems 12 systems reviewed. Pertinent positives and negatives as per HPI. [facility] Medical History Aortic stenosis, severe (Chronic) GERD (gastroesophageal reflux disease) (Chronic) Hypertension (Chronic) H/O malignant neoplasm of breast (Resolved) H/O malignant neoplasm of colon (Resolved) Surgical History H/O cardiac catheterization (Chronic) H/O colonoscopy (Chronic) History of esophagogastroduodenoscopy (EGD) (Chronic) S/P cholecystectomy (Chronic) S/P right hemicolectomy (Chronic) Status post closure of ileostomy (Chronic) Status post right breast lumpectomy (Chronic) Family History Mother Stroke Hypertension Son Diabetes Son Diabetes Father Cancer Brother Cancer Social History Smoking/Tobacco Use Status: Former Tobacco Use Pack-years: 141 Tobacco: How many years used: 47 Alcohol Intake: never Drug use: Never Substance use type: does not use Do you feel safe at home: Yes Do you feel safe in your relationship?: Yes Meds Home Medications Medication Instructions Recorded Confirmed Type aspirin [Aspirin Low Dose] 81 mg PO DAILY 06/04/19 06/04/19 History omeprazole 20 mg PO DAILY 06/04/19 06/04/19 History Allergies Allergy/AdvReac Type Severity Reaction Status Date / Time No Known Allergies Allergy Unverified 01/19/18 09:19 Exam Narrative Exam Narrative: General: Very pleasant elderly female, sitting at the edge of the bed, no shortness of breath observed while telling me her history Neurological: A&Ox3, disconjugate eye movements (L eye with deviation to the left), otherwise no noted deficits Psychiatric: appropriate speech pattern/content Skin: intact HEENT: Atraumatic, normocephalic, disconjugate eye movements, moist mucous membraines, clear oropharynx, no submandibular or cervical lymphadenopathy, no goiter or JVD Cardiovascular: RRR, + MI Lungs: quiet crackles at B bases Gastrointestinal: abdomen is soft, nontender, nondistended Extremities: trace edema BLE's, no c/c Results Imaging Additional studies: EKG: Sinus tach, HR 103, no acute ischemia CXR: : Mild cardiomegaly. Minimal blunting at the costophrenic angles could indicate tiny effusions. Labs : 06/04/19 12:15 06/04/19 13:05 Laboratory Results - last 24 hr 06/04/19 06/04/19 06/04/19 12:15 12:15 12:15 WBC 11.19 H RBC 3.54 L Hgb 10.5 L Hct 32.3 L MCV 91.2 MCH 29.7 MCHC 32.5 RDW 14.5 Plt Count 382 D MPV 9.1 Immature Gran % 0.9 Neutrophils % 90.4 Lymphocytes % 2.4 Monocytes % 6.1 Eosinophils % 0.1 Basophils % 0.1 Absolute Neutrophils 10.12 H Absolute Lymphocytes 0.27 L Absolute Monocytes 0.68 Absolute Eosinophils 0.01 Absolute Basophils 0.01 PT Cancelled INR Cancelled APTT Cancelled Sodium Cancelled Potassium Cancelled Chloride Cancelled Carbon Dioxide Cancelled Anion Gap Cancelled BUN Cancelled Creatinine Cancelled Estimated GFR/1.73 m2 Cancelled Glucose Cancelled Calcium Cancelled Magnesium Cancelled Total Bilirubin Cancelled AST Cancelled ALT Cancelled Alkaline Phosphatase Cancelled Troponin I Cancelled NT-Pro-B Natriuret Pep Cancelled Total Protein Cancelled Albumin Cancelled 06/04/19 06/04/19 13:05 13:05 WBC RBC Hgb Hct MCV MCH MCHC RDW Plt Count MPV Immature Gran % Neutrophils % Lymphocytes % Monocytes % Eosinophils % Basophils % Absolute Neutrophils Absolute Lymphocytes Absolute Monocytes Absolute Eosinophils Absolute Basophils PT 9.8 INR 1.0 APTT 25.9 Sodium 136 Potassium 3.6 Chloride 102 Carbon Dioxide 25.3 Anion Gap 8.7 BUN 15 Creatinine 1.09 H Estimated GFR/1.73 m2 49.34 Glucose 96 Calcium 9.0 Magnesium 1.5 L Total Bilirubin 0.6 AST 21 ALT 21 Alkaline Phosphatase 144 H Troponin I < 0.05 NT-Pro-B Natriuret Pep 1613 H Total Protein 7.3 Albumin 2.2 L Last Vital Signs Temp 36.9 C 06/04/19 17:10 Pulse 85 06/04/19 18:01 Resp 21 06/04/19 18:01 BP 132/47 L 06/04/19 18:01 Pulse Ox 96 06/04/19 18:01
[2019-06-04] MEDS: MAGNESIUM SULFATE 2 GM/50 ML BAG IV ×2 (20:40→23:23)
[2019-06-04] MEDS: Furosemide 20 MG TAB PO (20:41)
[2019-06-04] MEDS: Normal Saline Flush 10 ML SYR IVP (20:41)
[2019-06-04] MEDS: Enoxaparin 40 MG/0.4 ML SYR SC (20:41)
[2019-06-04 20:53] LABS: Troponin I < 0.05 ng/mL (0.00-0.06)
[2019-06-05] VITALS (41 sets, daily range): BP systolic 109–139; BP diastolic 52–66; PULSE 79–103; RESP 14–31; TEMP 36.3–38.2; O2SAT 95–98
[2019-06-05 06:59] LABS: Abs Immature Grans 0.06 k/cumm (0.0-0.09); Absolute Eosinophil Count 0.03 k/cumm (0.0-0.7); Absolute Lymphocyte Count 0.27 k/cumm (1.2-3.4); Absolute Monocyte Count 0.49 k/cumm (0.11-0.7); Eosinophils % 0.5; HCT 29.4 % (36.0-46.0); HGB 9.4 g/dL (12.0-15.5); Immature Grans % 0.9; Lymphocytes % 4.1; Mean Corpuscular Hemoglobin 29.1 pg (27.0-33.0); Mean Platelet Volume 8.8 fL (8.0-11.0); Monocytes % 7.4; Neutrophils % 87.1; Platelet Count 334 x1000/uL (130-400); RBC 3.23 m/cumm (4.00-5.20); RBC Distribution Width 14.5 % (11.7-14.6); White Blood Cell Count 6.63 k/cumm (4.4-10.8)
[2019-06-05 07:09] LABS: Absolute Neutrophil Count 5.77 k/cumm (1.2-6.7)
[2019-06-05 07:22] LABS: Iron 14 ug/dL (50-175); Total Iron Binding Capacity 177 ug/dL (250-450); Transferrin Sat 8 % (15-50)
[2019-06-05 07:32] LABS: BUN 16 mg/dL (7-18); CREATININE 1.16 mg/dL (0.55-1.02); Calcium 8.3 mg/dL (8.5-10.1); Calculated LDL 47 mg/dL; Chloride 99 mmol/L (98-107); Cholesterol 94 mg/dL (50-200); Estimated GFR 45.92 (mL/min/1.73m2); Ferritin 660 ng/mL (8-388); Glucose 125 mg/dL (70-100); HDL Cholesterol 33 mg/dL (40-60); Magnesium 2.6 mg/dL (1.8-2.4); Potassium 3.7 mmol/L (3.5-5.1); Sodium 135 mmol/L (136-145); TSH (W/Ref FT4) 0.38 uIU/mL (0.358-3.74); Triglyceride 74 mg/dL (30-150); Troponin I < 0.05 ng/mL (0.00-0.06)
[2019-06-05 07:33] LABS: Anisocytosis 2+; Diff Comment RBC Morph Reviewed; Hypochromasia 1+
[2019-06-05 07:34] LABS: Polychromasia Present
[2019-06-05 07:48] LABS: Folate 12.2 ng/mL (8.6-20.0); Vitamin B12 303 pg/mL (193-986)
[2019-06-05] MEDS: Omeprazole 20 MG CAPCR PO (08:12)
[2019-06-05] MEDS: Aspirin E.C. 81 MG TABEC PO (08:12)
--- NOTE | 2019-06-05 12:52 | PDOC.CMIN ---
- If Service Date Differs Date of service: 06/05/19 Time of Service: 12:52 Care Management Initial Assess REASON FOR HOSPITALIZATION:: Symptomatic Aortic Stenosis PAST MEDICAL HISTORY/PAST SURGICAL HISTORY:: HTN, GERD, HTN, Malignant neoplasam of the breast and colon. Surgical Hx:ardiac catheterization,colonoscopy, cholecystectomy (Chronic), right hemicolectomy (Chronic), Status post closure of ileostomy (Chronic). Status post right breast lumpectomy (Chronic) PREVIOUS FUNCTIONAL STATUS/SOCIAL/FAMILY SUPPORTS:: Polina resides in [facility] with her of almost fifty years; Eugenio who has dementia. She was born in [facility] and then lived in [place] from age [age] when she returned to the area. The couple had six children and many grandchildren. Her son who lives local is providing care to her spouse while she is in the hospital. Polina states she has no services at home. CURRENT FUNCTIONAL STATUS:: Polina is sitting up on the side of the bed family is present. ADVANCE DIRECTIVES:: None on file - offered forms she will consider completing Has patient been provided with information about the portal?: Yes Did the patient sign up for the portal?: No CODE STATUS:: Full Code INSURANCE COVERAGE / FINANCIAL ISSUES:: Medicare CURRENT HOME/COMMUNITY SERVICES/EQUIPMENT:: Polina reports none PRIMARY CARE PHYSICIAN:: Tiana Webster NP [facility] POTENTIAL DISCHARGE NEEDS:: [place] [facility] [place]IENT/FAMILY EDUCATION NEEDS:: Discharge information related to transition [place] [facility] CM reviewed plan mode of transporation with Pt. She states her family is aware of potential transfer. ANTICIPATED BARRIERS TO DISCHARGE:: None TRANSPORTATION:: Via ambulance coordianted by Nurse Gas Line Installer Supervisor PLAN:: Polina is being monitored in the [place] aw[place] [facility]. Potential for her to be discharged [place] [facility] [place] pending bed availability. CM to continue to provide support to pt during transition.
--- NOTE | 2019-06-05 12:55 | W.PM.PROGNOT ---
Date of Service Date of service: 06/05/19 Time of Service: 12:55 Assessment and Plan (1) Severe aortic stenosis: Current visit: Yes Status: Acute Severe, symptomatic , originally with plans for elective TAVR, now needs procedure expedited. Evidence of mild CHF clinically, and chest pain subjectively. Continue low dose home regimen of BB therapy for HTN, and give additional low dose of Furosemide today given CHF presentation, with close monitoring of fluid status, weight, and symptoms. Patient continues to have mild tachypnea and dyspnea, with continued evidence of crackles on exam. (2) Acute CHF: Current visit: Yes Status: Acute (3) Anemia: Current visit: Yes Status: Chronic Anemia of Chronic Disease by labs, with low iron and TIBC, and Ferritin in the 600's. Vitamin B12, FA, and TSH normal. Appears stable. (4) Adenocarcinoma of right breast: Current visit: No Status: Acute Stage IIb AdenoCa of the right breast, s/p Lumpectomy 08/2017, with adjuvant Chemo/XRT in 2018. (5) Primary adenocarcinoma of ascending colon: Current visit: No Status: Acute Stage II AdenoCa s/p Colectomy with removal of terminal ileum and ileostomy 03/2017, with reversal following. (6) GERD (gastroesophageal reflux disease): Current visit: Yes Status: Chronic Continue PPI therapy. (7) Hypertension: Current visit: Yes Status: Chronic Low dose BB. Blood pressures are currently reasonable. (8) DVT prophylaxis: Current visit: Yes Status: Acute Continue SC Enoxaparin. (9) Advance directive on file: Current visit: Yes Status: Acute Full Code. Subjective Interval history since last seen: 73 year old woman with a past history significant for severe , admitted from [facility] Emergency Department on 06/04 with a diagnosis of symptomatic Aortic Stenosis. Mrs. Alvarado has a prior history of severe Aortic Stenosis, HTN, GERD, Breast and Colon Cancer. She was recently admitted at [facility] in late May following onset of chest pain, with ECHO showing significant Aortic Stenosis. Given plans for AVR the patient underwent a Heart Catheterization which showed clean coronaries. She was discharged with plans for an elective TAVR, especially in light of significant contrast that she had received with a CTA and cardiac catheterization. However, she reported back to [facility] ED with complaints of ongoing intermittent chest pain with radiation to her left neck and shoulder that started at 3 am on the day of admission, along with concurrent dyspnea and nausea. Work-up in the ED was significant for an elevated BNP, and potential small effusions and cardiomegally by CXR. She was also noted clinically to be in failure. She was accepted by [facility] Cardiology in order to expedite her planned TAVR. This morning Mrs. Alvarado reports improved symptoms of dyspnea overall, with no further chest pain. Her vitals remain stable, as does her blood work. No overnight events reported. Remains afebrile. Exam Narrative Exam Narrative: General: Patient appears comfortable, AAOX3, NAD Neck: Supple CV: Regular, nontachycardic, S1S2, slight RUSB MI. Pulmonary: Bibasilar crackles, L>R Abdomen: + Bowel Sounds, soft, nontender, nondistended Vascular: No lower extremity edema Psych: Normal mood and affect. Objective Objective Clinical Data: Abnormal lab results 06/04/19 06/05/19 06/05/19 Range/Units 13:05 06:30 06:30 RBC 3.23 L (4.00-5.20) m/cumm Hgb 9.4 L (12.0-15.5) g/dL Hct 29.4 L (36.0-46.0) % Absolute Lymphocytes 0.27 L (1.2-3.4) k/cumm Sodium 135 L (136-145) mmol/L Creatinine 1.09 H 1.16 H (0.55-1.02) mg/dL Glucose 125 H (70-100) mg/dL Calcium 8.3 L (8.5-10.1) mg/dL Magnesium 1.5 L 2.6 H (1.8-2.4) mg/dL Iron (50-175) ug/dL TIBC (250-450) ug/dL Transferrin % Sat (15-50) % Ferritin 660 H (8-388) ng/mL Alkaline Phosphatase 144 H (46-116) U/L NT-Pro-B Natriuret Pep 1613 H ( - 299) pg/mL Albumin 2.2 L (3.4-5.0) g/dL HDL Cholesterol 33 L (40-60) mg/dL 06/05/19 Range/Units 06:30 RBC (4.00-5.20) m/cumm Hgb (12.0-15.5) g/dL Hct (36.0-46.0) % Absolute Lymphocytes (1.2-3.4) k/cumm Sodium (136-145) mmol/L Creatinine (0.55-1.02) mg/dL Glucose (70-100) mg/dL Calcium (8.5-10.1) mg/dL Magnesium (1.8-2.4) mg/dL Iron 14 L (50-175) ug/dL TIBC 177 L (250-450) ug/dL Transferrin % Sat 8 L (15-50) % Ferritin (8-388) ng/mL Alkaline Phosphatase (46-116) U/L NT-Pro-B Natriuret Pep ( - 299) pg/mL Albumin (3.4-5.0) g/dL HDL Cholesterol (40-60) mg/dL Vital Signs Temperature 36.9 C 06/05/19 08:17 Temperature Source Temporal Artery Scan 06/05/19 08:17 Pulse 84 06/05/19 08:09 Pulse Rhythm Regular 06/05/19 08:33 Pulse 84 06/05/19 08:09 Respiratory Rate 20 06/05/19 08:09 Respiratory Effort 06/05/19 08:33 Respiratory Depth Normal 06/05/19 08:33 Respiratory Pattern Normal 06/05/19 08:33 Blood Pressure 130/64 06/05/19 08:09 Blood Pressure Mean 79 06/05/19 08:09 Blood Pressure Position Supine 06/04/19 17:10 Pulse Oximetry 96 06/05/19 08:24 Oxygen Delivery Method Room Air 06/05/19 08:24 Oxygen Flow Rate 0 06/05/19 08:24 Pain Level 0 06/04/19 17:10 Intake & Output 06/04/19 06/05/19 06/05/19 23:59 11:59 23:59 Intake Total 1111.667 / 1111.667 630 / 630 Output Total 550 / 550 1150 / 1150 Balance 561.667 / 561.667 -520 / -520 Weight 64.4 kg Intake: IV 721.667 / 721.667 50 / 50 Oral 390 / 390 580 / 580 Output: Urine 550 / 550 950 / 950 Emesis 200 / 200 Other: Urine Color Yellow Yellow Urine Appearance Clear Sediment Urine Odor Normal Normal Comment 2 trips to [id number] Emesis Description Bile Clear/Water Mucous Voiding Methods Bedside Commode Bedside Commode Laboratory Results WBC 6.63 k/cumm (4.4-10.8) D 06/05/19 06:30 RBC 3.23 m/cumm (4.00-5.20) L 06/05/19 06:30 Hgb 9.4 g/dL (12.0-15.5) L 06/05/19 06:30 Hct 29.4 % (36.0-46.0) L 06/05/19 06:30 MCV 91.0 fL (80-95) 06/05/19 06:30 MCH 29.1 pg (27.0-33.0) 06/05/19 06:30 MCHC 32.0 g/dL (32.0-36.0) 06/05/19 06:30 RDW 14.5 % (11.7-14.6) 06/05/19 06:30 Plt Count 334 x1000/uL (130-400) 06/05/19 06:30 MPV 8.8 fL (8.0-11.0) 06/05/19 06:30 Immature Gran % 0.9 06/05/19 06:30 Neutrophils % 87.1 06/05/19 06:30 Lymphocytes % 4.1 06/05/19 06:30 Monocytes % 7.4 06/05/19 06:30 Eosinophils % 0.5 06/05/19 06:30 Basophils % 0.0 06/05/19 06:30 Absolute Neutrophils 5.77 k/cumm (1.2-6.7) 06/05/19 06:30 Absolute Lymphocytes 0.27 k/cumm (1.2-3.4) L 06/05/19 06:30 Absolute Monocytes 0.49 k/cumm (0.11-0.7) 06/05/19 06:30 Absolute Eosinophils 0.03 k/cumm (0.0-0.7) 06/05/19 06:30 Absolute Basophils 0.00 k/cumm (0.0-0.2) 06/05/19 06:30 Differential Comment Rbc morph reviewed 06/05/19 06:30 RBC Morphology See below 06/05/19 06:30 Polychromasia Present 06/05/19 06:30 Hypochromasia 1+ 06/05/19 06:30 Anisocytosis 2+ 06/05/19 06:30 PT 9.8 sec (9.3-11.0) 06/04/19 13:05 INR 1.0 (0.9-1.1) 06/04/19 13:05 APTT 25.9 sec (21.0-31.4) 06/04/19 13:05 Sodium 135 mmol/L (136-145) L 06/05/19 06:30 Potassium 3.7 mmol/L (3.5-5.1) 06/05/19 06:30 Chloride 99 mmol/L (98-107) 06/05/19 06:30 Carbon Dioxide 25.0 mmol/L (21.0-32.0) 06/05/19 06:30 Anion Gap 11.0 mmol/L (3-11) 06/05/19 06:30 BUN 16 mg/dL (7-18) 06/05/19 06:30 Creatinine 1.16 mg/dL (0.55-1.02) H 06/05/19 06:30 Estimated GFR/1.73 m2 45.92 (mL/min/1.73m2) 06/05/19 06:30 Glucose 125 mg/dL (70-100) H 06/05/19 06:30 Calcium 8.3 mg/dL (8.5-10.1) L 06/05/19 06:30 Magnesium 2.6 mg/dL (1.8-2.4) H 06/05/19 06:30 Iron 14 ug/dL (50-175) L 06/05/19 06:30 TIBC 177 ug/dL (250-450) L 06/05/19 06:30 Transferrin % Sat 8 % (15-50) L 06/05/19 06:30 Ferritin 660 ng/mL (8-388) H 06/05/19 06:30 Total Bilirubin 0.6 mg/dL (0.2-1.0) 06/04/19 13:05 AST 21 U/L (15-37) 06/04/19 13:05 ALT 21 U/L (12-78) 06/04/19 13:05 Alkaline Phosphatase 144 U/L (46-116) H 06/04/19 13:05 Troponin I < 0.05 ng/mL (0.00-0.06) 06/05/19 06:30 NT-Pro-B Natriuret Pep 1613 pg/mL (-299) H 06/04/19 13:05 Total Protein 7.3 g/dL (6.4-8.2) 06/04/19 13:05 Albumin 2.2 g/dL (3.4-5.0) L 06/04/19 13:05 Triglycerides 74 mg/dL (30-150) 06/05/19 06:30 Total Cholesterol 94 mg/dL (50-200) 06/05/19 06:30 LDL Cholesterol, Calc 47 mg/dL 06/05/19 06:30 HDL Cholesterol 33 mg/dL (40-60) L 06/05/19 06:30 Vitamin B12 303 pg/mL (193-986) 06/05/19 06:30 Folate 12.2 ng/mL (8.6-20.0) 06/05/19 06:30 TSH 0.38 uIU/mL (0.358-3.74) 06/05/19 06:30
--- NOTE | 2019-06-05 13:00 | INITIAL_ITS ---
- If Service Date Differs Date of service: 06/05/19 Time of Service: 12:52 Care Management Initial Assess REASON FOR HOSPITALIZATION:: Symptomatic Aortic Stenosis PAST MEDICAL HISTORY/PAST SURGICAL HISTORY:: HTN, GERD, HTN, Malignant neoplasam of the breast and colon. Surgical Hx:ardiac catheterization,colonoscopy, cholecystectomy (Chronic), right hemicolectomy (Chronic), Status post closure of ileostomy (Chronic). Status post right breast lumpectomy (Chronic) PREVIOUS FUNCTIONAL STATUS/SOCIAL/FAMILY SUPPORTS:: Polina resides in [facility] with her of almost fifty years; Eugenio who has dementia. She was born in [facility] and then lived in [place] from age [age] when she returned to the area. The couple had six children and many grandchildren. Her son who lives local is providing care to her spouse while she is in the hospital. Polina states she has no services at home. CURRENT FUNCTIONAL STATUS:: Polnia is sitting up on the side of the bed family is present. ADVANCE DIRECTIVES:: None on file - offered forms she will consider completing Has patient been provided with information about the portal?: Yes Did the patient sign up for the portal?: No CODE STATUS:: Full Code INSURANCE COVERAGE / FINANCIAL ISSUES:: Medicare CURRENT HOME/COMMUNITY SERVICES/EQUIPMENT:: Polina reports none PRIMARY CARE PHYSICIAN:: Tiana Webster NP [facility] POTENTIAL DISCHARGE NEEDS:: Transfer to [facility] PATIENT/FAMILY EDUCATION NEEDS:: Discharge information related to transition to [facility], CM reviewed plan mode of transporation with Pt. She states her family is aware of potential transfer. ANTICIPATED BARRIERS TO DISCHARGE:: None TRANSPORTATION:: Via ambulance coordianted by Nurse Trust Accounts Supervisor PLAN:: Polina is being monitored in the ICU awating bed at [facility]. Potential for her to be discharged to [facility] on Friday pending bed availability. CM to continue to provide support to pt during transition.
--- NOTE | 2019-06-05 13:02 | PGE_ITS ---
Date of Service Date of service: 06/05/19 Time of Service: 12:55 Assessment and Plan (1) Severe aortic stenosis: Current visit: Yes Status: Acute Severe, symptomatic , originally with plans for elective TAVR, now needs procedure expedited. Evidence of mild CHF clinically, and chest pain subjectively. Continue low dose home regimen of BB therapy for HTN, and give additional low d ose of Furosemide today given CHF presentation, with close monitoring of fluid status, weight, and symptoms. Patient continues to have mild tachypnea and dyspnea, with continued evidence of crackles on exam. (2) Acute CHF: Current visit: Yes Status: Acute (3) Anemia: Current visit: Yes Status: Chronic Anemia of Chronic Disease by labs, with low iron and TIBC, and Ferritin in the 600's. Vitamin B12, FA, and TSH normal. Appears stable. (4) Adenocarcinoma of right breast: Current visit: No Status: Acute Stage IIb AdenoCa of the right breast, s/p Lumpectomy 08/2017, with adjuvant Chemo/XRT in 2018. (5) Primary adenocarcinoma of ascending colon: Current visit: No Status: Acute Stage II AdenoCa s/p Colectomy with removal of terminal ileum and ileostomy 03/2017, with reversal following. (6) GERD (gastroesophageal reflux disease): Current visit: Yes Status: Chronic Continue PPI therapy. (7) Hypertension: Current visit: Yes Status: Chronic Low dose BB. Blood pressures are currently reasonable. (8) DVT prophylaxis: Current visit: Yes Status: Acute Continue SC Enoxaparin. (9) Advance directive on file: Current visit: Yes Status: Acute Full Code. Subjective Interval history since last seen: 73 year old woman with a past history significant for severe , admitted from [facility] Emergency Department on 06/04 with a diagnosis of symptomatic Aortic Stenosis. Mrs. Alvarado has a prior history of severe Aortic Stenosis, HTN, GERD, Breast and Colon Cancer. She was recently admitted at [facility] in late May following onset of chest pain, with ECHO showing significant Aortic Stenosis. Given plans for AVR the patient underwent a Heart Catheterization which showed clean coronaries. She was discharged with plans for an elective TAVR, especially in light of significant contrast that she had received with a CTA and cardiac catheterization. However, she reported back to [facility] ED with complaints of ongoing intermittent chest pain with radiation to her left neck and shoulder that started at 3 am on the day of admission, along with concurrent dyspnea and nausea. Work-up in the ED was significant for an elevated BNP, and potential small effusions and cardiomegally by CXR. She was also noted clinically to be in failure. She was accepted by [facility] Cardiology in order to expedite her planned TAVR. This morning Mrs. Alvarado reports improved symptoms of dyspnea overall, with no further chest pain. Her vitals remain stable, as does her blood work. No overnight events reported. Remains afebrile. Exam Narrative Exam Narrative: General: Patient appears comfortable, AAOX3, NAD Neck: Supple CV: Regular, nontachycardic, S1S2, slight RUSB MI. Pulmonary: Bibasilar crackles, L>R Abdomen: + Bowel Sounds, soft, nontender, nondistended Vascular: No lower extremity edema Psych: Normal mood and affect. Objective Objective Clinical Data: Abnormal lab results 06/04/19 06/05/19 06/05/19 Range/Units 13:05 06:30 06:30 RBC 3.23 L (4.00-5.20) m/cumm Hgb 9.4 L (12.0-15.5) g/dL Hct 29.4 L (36.0-46.0) % Absolute Lymphocytes 0.27 L (1.2-3.4) k/cumm Sodium 135 L (136-145) mmol/L Creatinine 1.09 H 1.16 H (0.55-1.02) mg/dL Glucose 125 H (70-100) mg/dL Calcium 8.3 L (8.5-10.1) mg/dL Magnesium 1.5 L 2.6 H (1.8-2.4) mg/dL Iron (50-175) ug/dL TIBC (250-450) ug/dL Transferrin % Sat (15-50) % Ferritin 660 H (8-388) ng/mL Alkaline Phosphatase 144 H (46-116) U/L NT-Pro-B Natriuret Pep 1613 H ( - 299) pg/mL Albumin 2.2 L (3.4-5.0) g/dL HDL Cholesterol 33 L (40-60) mg/dL 06/05/19 Range/Units 06:30 RBC (4.00-5.20) m/cumm Hgb (12.0-15.5) g/dL Hct (36.0-46.0) % Absolute Lymphocytes (1.2-3.4) k/cumm Sodium (136-145) mmol/L Creatinine (0.55-1.02) mg/dL Glucose (70-100) mg/dL Calcium (8.5-10.1) mg/dL Magnesium (1.8-2.4) mg/dL Iron 14 L (50-175) ug/dL TIBC 177 L (250-450) ug/dL Transferrin % Sat 8 L (15-50) % Ferritin (8-388) ng/mL Alkaline Phosphatase (46-116) U/L NT-Pro-B Natriuret Pep ( - 299) pg/mL Albumin (3.4-5.0) g/dL HDL Cholesterol (40-60) mg/dL Vital Signs Temperature 36.9 C 06/05/19 08:17 Temperature Source Temporal Artery Scan 06/05/19 08:17 Pulse 84 06/05/19 08:09 Pulse Rhythm Regular 06/05/19 08:33 Pulse 84 06/05/19 08:09 Respiratory Rate 20 06/05/19 08:09 Respiratory Effort 06/05/19 08:33 Respiratory Depth Normal 06/05/19 08:33 Respiratory Pattern Normal 06/05/19 08:33 Blood Pressure 130/64 06/05/19 08:09 Blood Pressure Mean 79 06/05/19 08:09 Blood Pressure Position Supine 06/04/19 17:10 Pulse Oximetry 96 06/05/19 08:24 Oxygen Delivery Method Room Air 06/05/19 08:24 Oxygen Flow Rate 0 06/05/19 08:24 Pain Level 0 06/04/19 17:10 Intake & Output 06/04/19 06/05/19 06/05/19 23:59 11:59 23:59 Intake Total 1111.667 / 1111.667 630 / 630 Output Total 550 / 550 1150 / 1150 Balance 561.667 / 561.667 -520 / -520 Weight 64.4 kg Intake: IV 721.667 / 721.667 50 / 50 Oral 390 / 390 580 / 580 Output: Urine 550 / 550 950 / 950 Emesis 200 / 200 Other: Urine Color Yellow Yellow Urine Appearance Clear Sediment Urine Odor Normal Normal Comment 2 trips to [id number] Emesis Description Bile Clear/Water Mucous Voiding Methods Bedside Commode Bedside Commode Laboratory Results WBC 6.63 k/cumm (4.4-10.8) D 06/05/19 06:30 RBC 3.23 m/cumm (4.00-5.20) L 06/05/19 06:30 Hgb 9.4 g/dL (12.0-15.5) L 06/05/19 06:30 Hct 29.4 % (36.0-46.0) L 06/05/19 06:30 MCV 91.0 fL (80-95) 06/05/19 06:30 MCH 29.1 pg (27.0-33.0) 06/05/19 06:30 MCHC 32.0 g/dL (32.0-36.0) 06/05/19 06:30 RDW 14.5 % (11.7-14.6) 06/05/19 06:30 Plt Count 334 x1000/uL (130-400) 06/05/19 06:30 MPV 8.8 fL (8.0-11.0) 06/05/19 06:30 Immature Gran % 0.9 06/05/19 06:30 Neutrophils % 87.1 06/05/19 06:30 Lymphocytes % 4.1 06/05/19 06:30 Monocytes % 7.4 06/05/19 06:30 Eosinophils % 0.5 06/05/19 06:30 Basophils % 0.0 06/05/19 06:30 Absolute Neutrophils 5.77 k/cumm (1.2-6.7) 06/05/19 06:30 Absolute Lymphocytes 0.27 k/cumm (1.2-3.4) L 06/05/19 06:30 Absolute Monocytes 0.49 k/cumm (0.11-0.7) 06/05/19 06:30 Absolute Eosinophils 0.03 k/cumm (0.0-0.7) 06/05/19 06:30 Absolute Basophils 0.00 k/cumm (0.0-0.2) 06/05/19 06:30 Differential Comment Rbc morph reviewed 06/05/19 06:30 RBC Morphology See below 06/05/19 06:30 Polychromasia Present 06/05/19 06:30 Hypochromasia 1+ 06/05/19 06:30 Anisocytosis 2+ 06/05/19 06:30 PT 9.8 sec (9.3-11.0) 06/04/19 13:05 INR 1.0 (0.9-1.1) 06/04/19 13:05 APTT 25.9 sec (21.0-31.4) 06/04/19 13:05 Sodium 135 mmol/L (136-145) L 06/05/19 06:30 Potassium 3.7 mmol/L (3.5-5.1) 06/05/19 06:30 Chloride 99 mmol/L (98-107) 06/05/19 06:30 Carbon Dioxide 25.0 mmol/L (21.0-32.0) 06/05/19 06:30 Anion Gap 11.0 mmol/L (3-11) 06/05/19 06:30 BUN 16 mg/dL (7-18) 06/05/19 06:30 Creatinine 1.16 mg/dL (0.55-1.02) H 06/05/19 06:30 Estimated GFR/1.73 m2 45.92 (mL/min/1.73m2) 06/05/19 06:30 Glucose 125 mg/dL (70-100) H 06/05/19 06:30 Calcium 8.3 mg/dL (8.5-10.1) L 06/05/19 06:30 Magnesium 2.6 mg/dL (1.8-2.4) H 06/05/19 06:30 Iron 14 ug/dL (50-175) L 06/05/19 06:30 TIBC 177 ug/dL (250-450) L 06/05/19 06:30 Transferrin % Sat 8 % (15-50) L 06/05/19 06:30 Ferritin 660 ng/mL (8-388) H 06/05/19 06:30 Total Bilirubin 0.6 mg/dL (0.2-1.0) 06/04/19 13:05 AST 21 U/L (15-37) 06/04/19 13:05 ALT 21 U/L (12-78) 06/04/19 13:05 Alkaline Phosphatase 144 U/L (46-116) H 06/04/19 13:05 Troponin I < 0.05 ng/mL (0.00-0.06) 06/05/19 06:30 NT-Pro-B Natriuret Pep 1613 pg/mL (-299) H 06/04/19 13:05 Total Protein 7.3 g/dL (6.4-8.2) 06/04/19 13:05 Albumin 2.2 g/dL (3.4-5.0) L 06/04/19 13:05 Triglycerides 74 mg/dL (30-150) 06/05/19 06:30 Total Cholesterol 94 mg/dL (50-200) 06/05/19 06:30 LDL Cholesterol, Calc 47 mg/dL 06/05/19 06:30 HDL Cholesterol 33 mg/dL (40-60) L 06/05/19 06:30 Vitamin B12 303 pg/mL (193-986) 06/05/19 06:30 Folate 12.2 ng/mL (8.6-20.0) 06/05/19 06:30 TSH 0.38 uIU/mL (0.358-3.74) 06/05/19 06:30
[2019-06-05] MEDS: Furosemide 20 MG TAB PO (13:34)
[2019-06-05] MEDS: Metoprolol CR 25 MG TABCR PO (14:21)
[2019-06-05] MEDS: Acetaminophen 325 MG TAB PO (14:26)
[2019-06-05] MEDS: Normal Saline Flush 10 ML SYR IVP (16:04)
[2019-06-05] MEDS: Enoxaparin 40 MG/0.4 ML SYR SC (18:15)
[2019-06-05] MEDS: Ondansetron 4 MG/2 ML VIAL IVP (21:41)
[2019-06-06] VITALS (11 sets, daily range): BP systolic 91–117; BP diastolic 50–65; PULSE 89–102; RESP 14–24; TEMP 36.7–37.9; O2SAT 93
[2019-06-06] MEDS: Acetaminophen 325 MG TAB PO (06:33)
[2019-06-06 07:01] LABS: Abs Immature Grans 0.06 k/cumm (0.0-0.09); Absolute Basophil Count 0.01 k/cumm (0.0-0.2); Absolute Eosinophil Count 0.01 k/cumm (0.0-0.7); Absolute Lymphocyte Count 0.25 k/cumm (1.2-3.4); Absolute Monocyte Count 0.78 k/cumm (0.11-0.7); Absolute Neutrophil Count 12.27 k/cumm (1.2-6.7); Basophils % 0.1; Eosinophils % 0.1; HCT 30.3 % (36.0-46.0); HGB 9.8 g/dL (12.0-15.5); Immature Grans % 0.4; Lymphocytes % 1.9; Mean Corp. HGB Concentration 32.3 g/dL (32.0-36.0); Mean Corpuscular Hemoglobin 29.3 pg (27.0-33.0); Mean Corpuscular Volume 90.7 fL (80-95); Mean Platelet Volume 8.9 fL (8.0-11.0); Monocytes % 5.8; Neutrophils % 91.7; Platelet Count 368 x1000/uL (130-400); RBC 3.34 m/cumm (4.00-5.20); RBC Distribution Width 14.5 % (11.7-14.6); White Blood Cell Count 13.38 k/cumm (4.4-10.8)
[2019-06-06 07:11] LABS: Anion Gap 8.6 mmol/L (3-11); BUN 20 mg/dL (7-18); CO2 26.4 mmol/L (21.0-32.0); CREATININE 1.09 mg/dL (0.55-1.02); Calcium 9.1 mg/dL (8.5-10.1); Chloride 97 mmol/L (98-107); Estimated GFR 49.34 (mL/min/1.73m2); Glucose 110 mg/dL (70-100); Potassium 4.4 mmol/L (3.5-5.1); Sodium 132 mmol/L (136-145)
[2019-06-06] MEDS: Omeprazole 20 MG CAPCR PO (08:10)
[2019-06-06] MEDS: Aspirin E.C. 81 MG TABEC PO (08:10)
--- NOTE | 2019-06-06 09:30 | DI.RAD_ITS ---
SYMPTOM/DIAGNOSIS: FEVER PA AND LATERAL CHEST: 06/06 The heart is mildly enlarged. There are small bilateral pleural effusions as noted on previous chest film of 06/04/19 The patient has a history of breast carcinoma. Fibrotic changes are noted in the lungs consistent with prior radiation therapy. No acute consolidation seen. CONCLUSION: Small bilateral pleural effusions. No evidence of acute consolidation.
[2019-06-06] MEDS: Metoprolol CR 25 MG TABCR PO (09:35)
[2019-06-06 09:39] LABS: Bilirubin Small (Negative); Blood Trace-intact (Negative); Clarity Cloudy (Clear); Glucose Negative (Negative); Ketones Negative (Negative); Leukocyte Esterase Small (Negative); Nitrite Negative (Negative); Urobilinogen 0.2 EU/dL (Up TO 0.2); pH 5.5 (5-8)
--- NOTE | 2019-06-06 09:44 | DI.VRAD_ITS ---
EXAM: XR Chest, 2 Views EXAM DATE/TIME: 06/06/2019 8:41 AM CLINICAL HISTORY: 73 years old, female; Fever TECHNIQUE: Imaging protocol: XR of the chest, 2 views. COMPARISON: CR XR CHEST 2V PA LATERAL 06/04/2019 1:22 PM FINDINGS: Lungs: Stable prominent interstitial markings. No focal consolidation. Pleural space: Stable small pleural effusions bilaterally. Stable right apical pleural thickening. Heart/Mediastinum: Unremarkable. No cardiomegaly. Bones/joints: Unremarkable. IMPRESSION: Stable small pleural effusions bilaterally. Dictated and Authenticated by: Candy Ward MD. Ordering:CATIE Arndt MD
[2019-06-06 09:52] LABS: Epithelial Cells Many HPF (Negative)
[2019-06-06 09:53] LABS: Bacteria Many HPF (Negative); C & S Indicated? No/Sq. Contamination; Crystals Moderate Amorphous HPF (Negative); Mucus Trace (Negative); Other Cells Few Renal (Negative)
[2019-06-06 10:49] LABS: Bilirubin Negative (Negative); Blood Negative (Negative); Clarity Sl Cloudy (Clear); Glucose Negative (Negative); Ketones Negative (Negative); Leukocyte Esterase Negative (Negative); Nitrite Positive (Negative); Specific Gravity 1.015 (1.005-1.025); pH 5.5 (5-8)
[2019-06-06 11:39] LABS: Bacteria Many HPF (Negative); C & S Indicated? Yes; Casts 3-5 Coarse Granular LPF (Negative); Crystals Moderate Amorphous HPF (Negative); Epithelial Cells Many HPF (Negative); Mucus Negative (Negative); RBC Negative (0-2)
--- NOTE | 2019-06-06 12:26 | PDOC.CMPRO ---
- If Service Date Differs Date of service: 06/06/19 Time of Service: 12:26 Care Management Progress Note S/O: Polina is awaiting bed placement at [facility]. She was febrile last evening she states she was not feeling good, but better today She did have a UA and Chest Xray. She remains monitored in the ICU. She states her family will be here to see her soon. No other changes today. [facility] to arrange transport once a bed is available. A:Polina is a 73 year old female admitted for severe aortic stenosis in need of transfer for eval for TAVR. P:Polina is being monitored in the ICU awaiting bed at [facility]. Potential for her to be discharged to [facility] on Friday pending bed availability. CM to continue to provide support to pt during transition.
[2019-06-06] MEDS: cefTRIAXone 1 GM/50 ML BAG IVPB (12:42)
[2019-06-06] MEDS: Normal Saline Flush 10 ML SYR IVP (12:43)
--- NOTE | 2019-06-06 13:05 | CMPROGNOTE_ITS ---
- If Service Date Differs Date of service: 06/06/19 Time of Service: 12:26 Care Management Progress Note S/O: Polina [place] [facility] She was febrile last evening she states she was not feeling good, but better today She did have a UA and Chest Xray. She remains monitored in the ICU. She states her family will be here to see her soon. No other changes today. [facility] to arrange transport once a bed is available. A:Polina is a 73 year old female admitted for severe aortic stenosis in need of transfer for eval for TAVR. P:Polina is being monitored in the ICU awaiting bed [place] [facility] [place] Potential for her to be discharged [place] [facility] [place] pending bed availability. CM to continue to provide support to pt during transition.
--- NOTE | 2019-06-06 16:12 | PGE_ITS ---
Date of Service Date of service: 06/06/19 Time of Service: 16:10 Assessment and Plan (1) Severe aortic stenosis: Current visit: Yes Status: Acute Severe, symptomatic , originally with plans for elective TAVR, now needs procedure expedited. Evidence of mild CHF clinically, and chest pain subjectively. Continue low dose home regimen of BB therapy for HTN. Hold off on further diure sis - patient continues to have evidence of mild volume overload by pulmonary exam, although with improvement in symptoms and not requiring oxygen. However, she appears slightly dry and mildly hypotensive this morning. Aim to avoid overdiuresis given severity of her . Continue close monitoring of fluid status, weight, and symptoms. (2) Acute CHF: Current visit: Yes Status: Acute Plan and treatment as above. (3) UTI (urinary tract infection): Current visit: Yes Status: Acute Fever and mild leukocytosis, with CXR negative for infection and urinalysis showing likely infection with + Nitrite and with 10-20 WBCs (Leuk Esterase Negative). Initiate IV Ceftriaxone, and await urine culture results. (4) Anemia: Current visit: Yes Status: Chronic Anemia of Chronic Disease by labs, with low iron and TIBC, and Ferritin in the 600's. Vitamin B12, FA, and TSH normal. Appears stable. (5) Adenocarcinoma of right breast: Current visit: No Status: Acute Stage IIb AdenoCa of the right breast, s/p Lumpectomy 08/2017, with adjuvant Chemo/XRT in 2018. (6) Primary adenocarcinoma of ascending colon: Current visit: No Status: Acute Stage II AdenoCa s/p Colectomy with removal of terminal ileum and ileostomy 03/2017, with reversal following. (7) GERD (gastroesophageal reflux disease): Current visit: Yes Status: Chronic Continue PPI therapy. (8) Hypertension: Current visit: Yes Status: Chronic Low dose BB. Blood pressures are currently reasonable. (9) DVT prophylaxis: Current visit: Yes Status: Acute Continue SC Enoxaparin. (10) Advance directive on file: Current visit: Yes Status: Acute Full Code. (11) Discharge planning issues: Current visit: Yes Status: Acute Accepted in transfer to [facility]. If patient leaves this evening, this progress note to serve as Discharge summary. Subjective Interval history since last seen: 73 year old woman with a past history significant for severe , admitted from [facility] Emergency Department on 06/04 with a diagnosis of symptomatic Aortic Stenosis. Mrs. Alvarado has a prior history of severe Aortic Stenosis, HTN, GERD, Breast and Colon Cancer. She was recently admitted at [facility] in late May following onset of chest pain, with ECHO showing significant Aortic Stenosis. Given plans for AVR the patient underwent a Heart Catheterization which showed clean coronaries. She was discharged with plans for an elective TAVR, especially in light of significant contrast that she had received with a CTA and cardiac catheteriza tion. However, she reported back to [facility] ED with complaints of ongoing intermittent chest pain with radiation to her left neck and shoulder that started at 3 am on the day of admission, along with concurrent dyspnea and nausea. Work-up in the ED was significant for an elevated BNP, and potential small effusions and cardiomegally by CXR. She was also noted clinically to be in failure. She was accepted by [facility] Cardiology in order to expedite her planned TAVR. This morning Mrs. Alvarado reports continued improvement in her respiratory symptoms, with no further chest pain. However, she had a fever early this morning, with a positive urinalysis. No overnight events reported. Exam Narrative Exam Narrative: General: Patient appears comfortable, AAOX3, NAD Neck: Supple CV: Regular, nontachycardic, S1S2, slight RUSB MI. Pulmonary: Bibasilar crackles, L>R, improved since yesterday Abdomen: + Bowel Sounds, soft, nontender, nondistended Vascular: No lower extremity edema Psych: Normal mood and affect. Objective Objective Clinical Data: Abnormal lab results 06/06/19 06/06/19 06/06/19 Range/Units 06:40 06:40 09:30 WBC 13.38 H D (4.4-10.8) k/cumm RBC 3.34 L (4.00-5.20) m/cumm Hgb 9.8 L (12.0-15.5) g/dL Hct 30.3 L (36.0-46.0) % Absolute Neutrophils 12.27 H (1.2-6.7) k/cumm Absolute Lymphocytes 0.25 L (1.2-3.4) k/cumm Absolute Monocytes 0.78 H (0.11-0.7) k/cumm Sodium 132 L (136-145) mmol/L Chloride 97 L (98-107) mmol/L BUN 20 H (7-18) mg/dL Creatinine 1.09 H (0.55-1.02) mg/dL Glucose 110 H (70-100) mg/dL Urine Protein 30 H (Negative) mg/dL Urine Blood Trace-intact H (Negative) Urine Nitrite (Negative) Urine Bilirubin Small H (Negative) Urine Urobilinogen (Up TO 0.2) EU/dL Ur Leukocyte Esterase Small H (Negative) Urine RBC 3-5 H (0-2) 06/06/19 Range/Units 10:35 WBC (4.4-10.8) k/cumm RBC (4.00-5.20) m/cumm Hgb (12.0-15.5) g/dL Hct (36.0-46.0) % Absolute Neutrophils (1.2-6.7) k/cumm Absolute Lymphocytes (1.2-3.4) k/cumm Absolute Monocytes (0.11-0.7) k/cumm Sodium (136-145) mmol/L Chloride (98-107) mmol/L BUN (7-18) mg/dL Creatinine (0.55-1.02) mg/dL Glucose (70-100) mg/dL Urine Protein 30 H (Negative) mg/dL Urine Blood (Negative) Urine Nitrite Positive H (Negative) Urine Bilirubin (Negative) Urine Urobilinogen 1.0 H (Up TO 0.2) EU/dL Ur Leukocyte Esterase (Negative) Urine RBC (0-2) Vital Signs Temperature 36.7 C 06/06/19 08:03 Temperature Source Temporal Artery Scan 06/06/19 08:03 Pulse 92 H 06/06/19 12:03 Pulse Rhythm Regular 06/06/19 07:35 Pulse 92 H 06/06/19 14:00 Respiratory Rate 19 06/06/19 14:00 Respiratory Effort Non-Labored 06/06/19 07:35 Respiratory Depth Normal 06/06/19 07:35 Respiratory Pattern Normal 06/06/19 07:35 Blood Pressure 117/53 L 06/06/19 12:03 Blood Pressure Mean 70 06/06/19 12:03 Blood Pressure Position Supine 06/04/19 17:10 Pulse Oximetry 93 L 06/06/19 08:03 Oxygen Delivery Method Room Air 06/06/19 08:03 Oxygen Flow Rate 0 07/07/19 08:03 Pain Level 3 06/05/19 16:00 Comment 06/05/19 23:51 Intake & Output 06/05/19 06/06/19 06/06/19 23:59 11:59 23:59 Intake Total 480 / 1110 630 / 630 Output Total 725 / 1875 360 / 360 Balance -245 / -765 270 / 270 Weight 67 kg 65.8 kg Intake: Oral 480 / 1060 630 / 630 Output: Urine 725 / 1675 360 / 360 Other: Urine Color Yellow Yellow Urine Appearance Clear Clear Urine Odor Normal Strong Comment mixed with stool I&O catheter specimen for U/A as ordered. Stool Occult Blood Negative Negative Stool Size Large Large Stool Characteristics Soft Soft Formed Liquid [place] Voiding Methods Bedside Commode Bedside Commode Laboratory Results WBC 13.38 k/cumm (4.4-10.8) H D 06/06/19 06:40 RBC 3.34 m/cumm (4.00-5.20) L 06/06/19 06:40 Hgb 9.8 g/dL (12.0-15.5) L 06/06/19 06:40 Hct 30.3 % (36.0-46.0) L 06/06/19 06:40 MCV 90.7 fL (80-95) 06/06/19 06:40 MCH 29.3 pg (27.0-33.0) 06/06/19 06:40 MCHC 32.3 g/dL (32.0-36.0) 06/06/19 06:40 RDW 14.5 % (11.7-14.6) 06/06/19 06:40 Plt Count 368 x1000/uL (130-400) 06/06/19 06:40 MPV 8.9 fL (8.0-11.0) 06/06/19 06:40 Immature Gran % 0.4 06/06/19 06:40 Neutrophils % 91.7 06/06/19 06:40 Lymphocytes % 1.9 06/06/19 06:40 Monocytes % 5.8 06/06/19 06:40 Eosinophils % 0.1 06/06/19 06:40 Basophils % 0.1 06/06/19 06:40 Absolute Neutrophils 12.27 k/cumm (1.2-6.7) H 06/06/19 06:40 Absolute Lymphocytes 0.25 k/cumm (1.2-3.4) L 06/06/19 06:40 Absolute Monocytes 0.78 k/cumm (0.11-0.7) H 06/06/19 06:40 Absolute Eosinophils 0.01 k/cumm (0.0-0.7) 06/06/19 06:40 Absolute Basophils 0.01 k/cumm (0.0-0.2) 06/06/19 06:40 Differential Comment Rbc morph reviewed 06/05/19 06:30 RBC Morphology See below 06/05/19 06:30 Polychromasia Present 06/05/19 06:30 Hypochromasia 1+ 06/05/19 06:30 Anisocytosis 2+ 06/05/19 06:30 PT 9.8 sec (9.3-11.0) 06/04/19 13:05 INR 1.0 (0.9-1.1) 06/04/19 13:05 APTT 25.9 sec (21.0-31.4) 06/04/19 13:05 Sodium 132 mmol/L (136-145) L 06/06/19 06:40 Potassium 4.4 mmol/L (3.5-5.1) 06/06/19 06:40 Chloride 97 mmol/L (98-107) L 06/06/19 06:40 Carbon Dioxide 26.4 mmol/L (21.0-32.0) 06/06/19 06:40 Anion Gap 8.6 mmol/L (3-11) 06/06/19 06:40 BUN 20 mg/dL (7-18) H 06/06/19 06:40 Creatinine 1.09 mg/dL (0.55-1.02) H 06/06/19 06:40 Estimated GFR/1.73 m2 49.34 (mL/min/1.73m2) 06/06/19 06:40 Glucose 110 mg/dL (70-100) H 06/06/19 06:40 Calcium 9.1 mg/dL (8.5-10.1) 06/06/19 06:40 Magnesium 2.0 mg/dL (1.8-2.4) 06/06/19 06:40 Iron 14 ug/dL (50-175) L 06/05/19 06:30 TIBC 177 ug/dL (250-450) L 06/05/19 06:30 Transferrin % Sat 8 % (15-50) L 06/05/19 06:30 Ferritin 660 ng/mL (8-388) H 06/05/19 06:30 Total Bilirubin 0.6 mg/dL (0.2-1.0) 06/04/19 13:05 AST 21 U/L (15-37) 06/04/19 13:05 ALT 21 U/L (12-78) 06/04/19 13:05 Alkaline Phosphatase 144 U/L (46-116) H 06/04/19 13:05 Troponin I < 0.05 ng/mL (0.00-0.06) 06/05/19 06:30 NT-Pro-B Natriuret Pep 1613 pg/mL (-299) H 06/04/19 13:05 Total Protein 7.3 g/dL (6.4-8.2) 06/04/19 13:05 Albumin 2.2 g/dL (3.4-5.0) L 06/04/19 13:05 Triglycerides 74 mg/dL (30-150) 06/05/19 06:30 Total Cholesterol 94 mg/dL (50-200) 06/05/19 06:30 LDL Cholesterol, Calc 47 mg/dL 06/05/19 06:30 HDL Cholesterol 33 mg/dL (40-60) L 06/05/19 06:30 Vitamin B12 303 pg/mL (193-986) 06/05/19 06:30 Folate 12.2 ng/mL (8.6-20.0) 06/05/19 06:30 TSH 0.38 uIU/mL (0.358-3.74) 06/05/19 06:30 Urine Color Yellow (Yellow) 06/06/19 10:35 Urine Clarity Sl cloudy (Clear) 06/06/19 10:35 Urine pH 5.5 (5-8) 06/06/19 10:35 Ur Specific [place] 1.015 (1.005-1.025) 06/06/19 10:35 Urine Protein 30 mg/dL (Negative) H 06/06/19 10:35 Urine Ketones Negative mg/dL (Negative) 06/06/19 10:35 Urine Blood Negative (Negative) 06/06/19 10:35 Urine Nitrite Positive (Negative) H 06/06/19 10:35 Urine Bilirubin Negative (Negative) 06/06/19 10:35 Urine Urobilinogen 1.0 EU/dL (Up TO 0.2) H 06/06/19 10:35 Ur Leukocyte Esterase Negative (Negative) 06/06/19 10:35 Urine RBC Negative (0-2) 06/06/19 10:35 Urine WBC 10-20 HPF (0-5) 06/06/19 10:35 Ur Epithelial Cells Many HPF (Negative) 06/06/19 10:35 Urine Crystals Moderate amorphous HPF (Negative) 06/06/19 10:35 Urine Bacteria Many HPF (Negative) 06/06/19 10:35 Urine Casts 3-5 coarse granular LPF (Negative) 06/06/19 10:35 Urine Mucus Negative (Negative) 06/06/19 10:35 Urine Other Few renal (Negative) 06/06/19 09:30 Ur Culture Indicated? Yes 06/06/19 10:35 Urine Glucose Negative mg/dL (Negative) 06/06/19 10:35 Objective Narrative Objective Narrative: Exam(s) 06/04/2019 a RAD:XR chest 2V PA & lateral SYMPTOMS/DIAGNOSIS: SHORTNESS OF BREATH, CHEST PAIN AP AND LATERAL CHEST: Comparison is made with . The heart appears enlarged which may be partially secondary to projection. There is minimal blunting at both costophrenic angles. There are mildly increased interstitial markings, cons istent with fibrotic changes. No focal infiltrate or overt pulmonary edema is seen. IMPRESSION: Mild cardiomegaly. Minimal blunting at the costophrenic angles could indicate tiny effusions. ------- EXAM: XR Chest, 2 Views EXAM DATE/TIME: 06/06/2019 8:41 AM CLINICAL HISTORY: 73 years old, female; Fever TECHNIQUE: Imaging protocol: XR of the chest, 2 views. COMPARISON: CR XR CHEST 2V PA LATERAL 06/04/2019 1:22 PM FINDINGS: Lungs: Stable prominent interstitial markings. No focal consolidation. Pleural space: Stable small pleural effusions bilaterally. Stable right apical pleural thickening. Heart/Mediastinum: Unremarkable. No cardiomegaly. Bones/joints: Unremarkable. IMPRESSION: Stable small pleural effusions bilaterally.
== END 2019-06-06 18:05 | disposition short-term general hospital (02) | DRG 307 ==
LOC: ER 16:54 → ICU 17:15
PROVIDERS: Admitting Provider Internal Medicine; Emergency Provider Physician Assistant; PCP Nurse Practitioner Family; Visit Provider Internal Medicine
DX: I35.0 Nonrheumatic aortic (valve) stenosis (principal); N39.0 Urinary tract infection, site not specified; I50.9 Heart failure, unspecified; I95.9 Hypotension, unspecified; E87.70 Fluid overload, unspecified; E83.42 Hypomagnesemia; B96.20 Unspecified Escherichia coli [E. coli] as the cause of diseases classified elsewhere; I11.0 Hypertensive heart disease with heart failure; D63.8 Anemia in other chronic diseases classified elsewhere; K21.9 Gastro-esophageal reflux disease without esophagitis; Z75.1 Person awaiting admission to adequate facility elsewhere
CPT/HCPCS: 36415; 80048; 80053; 80061; 83721; 87077; 93005; 96360; 96361; 99223; 99232; 99233; 99285; J1650; 71046; 81003; 81015; 82607; 82728; 82746; 83540; 83550; 83735; 83880; 84443; 84484; 85025; 85610; 85730; 87086; 87186; 93010; J0696; J2405

== ENCOUNTER 2019-06-18 08:44 | Outpatient (CLI) | payer MEDICARE, SELFPAY ==
--- NOTE | 2019-06-18 13:52 | DI.MAMMO_ITS ---
SYMPTOM/DIAGNOSIS: SCREENING, S/P RADIATION FOR BREAST CA, C50.911 MAMMOGRAMS: Mammograms were interpreted according to the usual protocol including computer analysis with CAD system, tomosynthesis and C view imaging. Comparison is with the prior examinations. Posttherapeutic and postlumpectomy changes are seen in the right breast. No suspicious masses or microcalcifications are seen. There is an asymmetric density in the outer left breast on the craniocaudad view. This area should be further evaluated with a spot compression view. Ultrasound may be indicated at that time. IMPRESSION: Additional views of the left breast as described above. Category 0, breast density B. SA ASSESSMENT OF FINDINGS: Incomplete: Needs additional imaging evaluation. Category 0. Patient will receive a letter notifying them of these results. BI-RADS category B. There are scattered areas of fibroglandular density. 07/05/19 Patient has had open heart surgery since mammogram and will not be able to raise arm for at least 6-8 weeks. Patient and her son are aware of patient needing these additional views and they will call back when she is able to have these. Report being sent to doctor so they are aware.
== END 2019-06-18 09:04 ==
PROVIDERS: PCP Nurse Practitioner Family; Visit Provider Radiology Radiation Oncology
DX: Z12.31 Encounter for screening mammogram for malignant neoplasm of breast (principal); C50.911 Malignant neoplasm of unspecified site of right female breast; Z92.3 Personal history of irradiation; R92.8 Other abnormal and inconclusive findings on diagnostic imaging of breast
CPT/HCPCS: 77063; 77067

== ENCOUNTER 2019-07-01 11:01 | Emergency (ER) | payer MEDICARE, SELFPAY ==
[2019-07-01] VITALS (45 sets, daily range): BP systolic 84–154; BP diastolic 53–69; PULSE 89–103; RESP 11–23; TEMP 36.7–37.4; O2SAT 88–100
--- NOTE | 2019-07-01 11:23 | W.ED.GENAD ---
Discharge Plan Disposition Patient Disposition: [facility] Condition: Stable Discharge Details Chief Complaint: Abd Prob Clinical Impression: SBO (small bowel obstruction) Primary Care Provider: Tiana Romano ED Provider: Jero Seaman Home Meds and New Rx's Prescriptions: No Action aspirin [Aspirin Low Dose] 81 mg Tablet,Delayed Release (Dr/Ec) 81 mg PO DAILY RF: 0 omeprazole 20 mg Capsule,Delayed Release(Dr/Ec) 20 mg PO DAILY RF: 0 metoprolol succinate 25 mg Tablet Extended Release 24 Hr 12.5 mg PO BID RF: 0 clopidogrel [Plavix] 75 mg Tablet 75 mg PO DAILY RF: 0 ferrous sulfate 325 mg (65 mg iron) Tablet 325 mg PO TID RF: 0 folic acid 1 mg Tablet 1 mg PO DAILY RF: 0 ascorbic acid (vitamin C) 500 mg Capsule 500 mg PO TID RF: 0 Medical Decision Making 74 yo female who [place] [facility] [place] and was uncomplicated and is on asa/plavix since, who comes in with llq abd pain and n/v since 1130am. She has a hx in the past of colon cancer per pt tx'd with partial colon resection. She denies fevers, chest lc or sob. She does have significant pain in the llq, suspect diverticulitis, will obtain lab work and ct imaging to further evaluate labs unremarkable, ct shows sbo and possible incarcerated ventral hernia. will consult with general surgery, pt does feel better with fentanyl Dr. Saravia evaluated and states she would normally bring to the OR for repair but given recent valve replacement CRNAs here are not comfortable with the operation occurring here and recommend transfer to tertiary care facility. Will consult with general surgery at [facility] spoke with Dr. Liriano [place] [facility] [place] pt in transfer to their ED. Pt updated and remains stable Differential Diagnosis diverticulitis, colitis Medical Records Medical records reviewed: Yes I reviewed the patient's medical records. Imaging Data Radiologic Study: Attestation: I personally reviewed and interpreted this imaging study as follows: Imaging: CT Scan Radiologist's impression: sbo with ventral hernia per Dr. Whelan Lab Data Lab results reviewed: Yes I reviewed the patient's lab results. ECG Data Attestation: I personally reviewed and interpreted this ECG (s) as follows: Prior ECG tracings: available for review Interpretation: sinus rhythm, rate of 100, pr 162, no acute ischemic changes compared to the [place] [facility] [place] at 0644 which showed a LBBB as well HPI General Mode of arrival: ambulatory. Date/Time Provider Initiated Documentation: 07/01/19 11:04. Limitations to Documentation: no limitations. Information obtained by: patient. History of Present Illness 74 year old F presents to the emergency department with the chief complaint of abdominal pain, described as moderate, Patient reports no radiation. Patient started experiencing this day(s) (1) and it has been constant. No relieving factors improve symptom(s), No exacerbating factors reported . Patient notes nausea/vomiting. Patient did receive the following treatments prior to arrival, none Related Data Home Medications Medication Instructions Recorded Confirmed aspirin [Aspirin Low Dose] 81 mg PO DAILY 06/04/19 07/01/19 omeprazole 20 mg PO DAILY 06/04/19 07/01/19 metoprolol succinate 12.5 mg PO BID 06/05/19 07/01/19 ascorbic acid (vitamin C) 500 mg PO TID 07/01/19 07/01/19 clopidogrel [Plavix] 75 mg PO DAILY 07/01/19 07/01/19 ferrous sulfate 325 mg PO TID 07/01/19 07/01/19 folic acid 1 mg PO DAILY 07/01/19 07/01/19 Allergies Allergy/AdvReac Type Severity Reaction Status Date / Time No Known Allergies Allergy Unverified 07/01/19 11:22 General Stated Complaint: Abd Prob JEANIE: 3 Review of Systems Review of Systems All systems reviewed & are unremarkable except as noted in HPI and below Constitutional Denies chills, Denies fever(s) and Denies weakness ENT Denies change in voice Cardiovascular Denies chest pain and Denies dyspnea Respiratory Denies cough and Denies dyspnea Genitourinary Denies dysuria Neurologic Denies weakness [facility] Medical History Aortic stenosis, severe (Chronic) GERD (gastroesophageal reflux disease) (Chronic) H/O malignant neoplasm of breast (Resolved) H/O malignant neoplasm of colon (Resolved) Hypertension (Chronic) Surgical History H/O cardiac catheterization (Chronic) H/O colonoscopy (Chronic) H/O heart valve replacement with porcine valve (Acute) History of esophagogastroduodenoscopy (EGD) (Chronic) S/P cholecystectomy (Chronic) S/P right hemicolectomy (Chronic) Status post closure of ileostomy (Chronic) Status post right breast lumpectomy (Chronic) Family History Mother Stroke Hypertension Son Diabetes Son Diabetes Father Cancer Brother Cancer Social History Smoking/Tobacco Use Status: Former Tobacco Use Pack-years: 141 Tobacco: How many years used: 47 Alcohol Intake: never Drug use: Never Substance use type: does not use Do you feel safe at home: Yes Do you feel safe in your relationship?: Yes Exam Const General: no acute distress Orientation: alert HENMT Head: normal to inspection Ears: external ears normal General nose exam: external nose normal Mouth: moist mucous membranes Eyes General: appearance normal, both eyes and all related structures Neck Neck: normal visual inspection Resp Effort & Inspection: normal respiratory effort and able to speak in complete sentences Cardio Rate: regular rate GI Inspection: no abdominal wall ecchymosis Skin General skin exam: no rashes or lesions noted Neuro General: alert and oriented x3 Extrem General: normal to inspection Psych Mental Status: mental status grossly normal Course Vital Signs Temperature 37.4 C 07/01/19 11:18 Pulse 103 H 07/01/19 11:18 Respiratory Rate 20 07/01/19 11:18 Blood Pressure 154/63 H 07/01/19 11:18 Pulse Oximetry 100 07/01/19 11:18 Temperature 37.4 C 07/01/19 11:18 Temperature Source Temporal Artery Scan 07/01/19 11:18 Pulse 103 H 07/01/19 11:18 Respiratory Rate 20 07/01/19 11:18 Respiratory Effort Non-Labored 07/01/19 11:18 Blood Pressure 154/63 H 07/01/19 11:18 Blood Pressure Position Sitting 07/01/19 11:18 Pulse Oximetry 100 07/01/19 11:18 Oxygen Delivery Method Room Air 07/01/19 11:18 Oxygen Flow Rate 0 07/01/19 11:18 Pain Level 9 07/01/19 11:18
[2019-07-01 11:49] LABS: Abs Immature Grans 0.05 k/cumm (0.0-0.09); Absolute Basophil Count 0.01 k/cumm (0.0-0.2); Absolute Eosinophil Count 0.02 k/cumm (0.0-0.7); Absolute Lymphocyte Count 0.36 k/cumm (1.2-3.4); Absolute Neutrophil Count 4.01 k/cumm (1.2-6.7); Basophils % 0.2; Eosinophils % 0.4; HCT 26.6 % (36.0-46.0); Lymphocytes % 7.4; Mean Corp. HGB Concentration 30.1 g/dL (32.0-36.0); Mean Corpuscular Hemoglobin 28.5 pg (27.0-33.0); Mean Corpuscular Volume 94.7 fL (80-95); Mean Platelet Volume 9.2 fL (8.0-11.0); Monocytes % 8.2; Neutrophils % 82.8; Platelet Count 360 x1000/uL (130-400); RBC 2.81 m/cumm (4.00-5.20); RBC Distribution Width 17.8 % (11.7-14.6); White Blood Cell Count 4.85 k/cumm (4.4-10.8)
[2019-07-01 12:03] LABS: Anisocytosis 1+; Basophilic Stippling Present; Diff Comment RBC Morph Reviewed; INR 1.1 (0.9-1.1); PTT Activated 22.4 sec (21.0-31.4); Poikilocytes 1+; Polychromasia Present; Prothrombin Time 10.5 sec (9.3-11.0)
[2019-07-01 12:09] LABS: ALT 12 U/L (12-78); AST 20 U/L (15-37); Albumin 2.3 g/dL (3.4-5.0); Alkaline Phosphatase 121 U/L (46-116); BUN 19 mg/dL (7-18); Bilirubin, Total 0.4 mg/dL (0.2-1.0); CREATININE 1.05 mg/dL (0.55-1.02); Chloride 105 mmol/L (98-107); Estimated GFR 51.37 (mL/min/1.73m2); Glucose 102 mg/dL (70-100); Lipase 155 U/L (73-393); Potassium 4.2 mmol/L (3.5-5.1); Sodium 140 mmol/L (136-145); Total Protein 7.3 g/dL (6.4-8.2)
[2019-07-01] MEDS: Normal Saline 250 ML 500 ML IV (12:10)
[2019-07-01] MEDS: Ondansetron 4 MG/2 ML VIAL IVP (12:13)
[2019-07-01] MEDS: fentaNYL 100 MCG/2 ML VIAL 50 MCG IVP (12:15)
[2019-07-01] MEDS: Omnipaque 350 MG/ML 100 ML BTL IJ (12:28)
--- NOTE | 2019-07-01 12:31 | DI.CT_ITS ---
SYMPTOMS/DIAGNOSIS: LT LOWER ABDOMINAL PAIN CT OF THE ABDOMEN AND PELVIS: The study was carried out according to the usual protocol with an intravenous administration of 100 cc's of Omnipaque 350. There are regions of scarring in the right middle lobe. There is no infiltrate or mass or pleural effusion. The patient appears to have an aortic valve prosthesis in place. The liver is intact. The patient is status post cholecystectomy. The spleen and kidneys appear intact. There is some prominence of the adrenals consistent with adrenal hyperplasia. There are dilated fluid containing loops of small bowel in this patient who is status post right hemicolectomy. At fat containing small umbilical hernia is demonstrated and there is a moderate sized lower abdominal ventral hernia which contains a small bowel loop. There is some increased density in the adjacent fat. No definite transition point is demonstrated, however, the possibility of incarceration is raised. Note is also made of colonic diverticula without evidence of diverticulitis. There is a small quantity of free fluid in the pelvis. The bladder is grossly normal. The reproductive organs appear intact. There is a small quantity of free pelvic fluid. There is no evidence of free air in the intraperitoneal space. There is diffuse calcification in the abdominal aorta without evidence of aneurysm. When compared with the previous examination severe compression fractures are demonstrated involving L 1 and L 2. In addition there are degenerative bony changes and there is an evident vacuum disc at L 3 - 4. SUMMARY: Dilated fluid filled loops of small bowel are demonstrated. There is a lower abdominal ventral hernia containing a small bowel loop. The findings suspicious for incarceration.
--- NOTE | 2019-07-01 13:58 | W.SURGCON ---
Date of service: 07/01/19 Time of Service: 13:59 Assessment and Plan (1) Incisional hernia with bowel obstruction: Current visit: Yes Status: Acute Her CT scan shows small bowel present within the incisional hernia. She will need semi-urgent repair due to obstructive symptoms although clinically there is no ischemia. Her recent TAVR is discussed with anesthesia. Due to lack of cardiology and CT surgery services at [facility], we agree she should have her procedure done at [facility]. I think she is stable enough for transfer. This was discussed with the patient. History of Present Illness Narrative: Patient complains of lower abdominal pain and vomiting since mid day yesterday. She had several episodes of vomiting overnight, the last one being this morning. Also had a loose stool. She has been having intermittent pain in the same region for the last month but not sustained. Her history is significant for colon resection. She also had TAVR last week via a left subvclavian approach. Her presented symptom was chest pain. [facility] Medical History Aortic stenosis, severe (Chronic) GERD (gastroesophageal reflux disease) (Chronic) H/O malignant neoplasm of breast (Resolved) H/O malignant neoplasm of colon (Resolved) Hypertension (Chronic) Surgical History H/O cardiac catheterization (Chronic) H/O colonoscopy (Chronic) H/O heart valve replacement with porcine valve (Acute) History of esophagogastroduodenoscopy (EGD) (Chronic) S/P cholecystectomy (Chronic) S/P right hemicolectomy (Chronic) Status post closure of ileostomy (Chronic) Status post right breast lumpectomy (Chronic) Family History Mother Stroke Hypertension Son Diabetes Son Diabetes Father Cancer Brother Cancer Social History Smoking/Tobacco Use Status: Former Tobacco Use Pack-years: 141 Tobacco: How many years used: 47 Alcohol Intake: never Drug use: Never Substance use type: does not use Do you feel safe at home: Yes Do you feel safe in your relationship?: Yes Exam Narrative Exam Narrative: Alert, no acute distress Lungs CTA Heart RRR Abdomen soft, nondistended. Midline incision present with bulge just above umbilicus. Bowel present. Partially reducible and not firm, no skin changes. Incision on left upper chest well healed. Results Last Vital Signs Temp 98.2 F 07/01/19 13:48 Pulse 97 H 07/01/19 13:30 Resp 23 07/01/19 12:00 BP 122/63 07/01/19 13:30 Pulse Ox 100 07/01/19 13:31 Labs : 07/01/19 11:40 07/01/19 11:40 Laboratory Results - last 24 hr 07/01/19 07/01/19 07/01/19 11:40 11:40 11:40 WBC 4.85 RBC 2.81 L Hgb 8.0 L Hct 26.6 L MCV 94.7 MCH 28.5 MCHC 30.1 L RDW 17.8 H Plt Count 360 MPV 9.2 Immature Gran % 1.0 Neutrophils % 82.8 Lymphocytes % 7.4 Monocytes % 8.2 Eosinophils % 0.4 Basophils % 0.2 Absolute Neutrophils 4.01 Absolute Lymphocytes 0.36 L Absolute Monocytes 0.40 Absolute Eosinophils 0.02 Absolute Basophils 0.01 Differential Comment Rbc morph reviewed RBC Morphology See below Polychromasia Present Poikilocytosis 1+ Basophilic Stippling Present Anisocytosis 1+ PT 10.5 INR 1.1 APTT 22.4 Sodium 140 Potassium 4.2 Chloride 105 Carbon Dioxide 24.0 Anion Gap 11.0 BUN 19 H Creatinine 1.05 H Estimated GFR/1.73 m2 51.37 Glucose 102 H Calcium 9.0 Magnesium 2.0 Total Bilirubin 0.4 AST 20 ALT 12 Alkaline Phosphatase 121 H Total Protein 7.3 Albumin 2.3 L Lipase 155
[2019-07-01] MEDS: Normal Saline 1,000 ML 125 ML IV (14:20)
[2019-07-01 14:24] LABS: Bilirubin Negative (Negative); Blood Negative (Negative); Clarity Clear (Clear); Glucose Negative (Negative); Ketones Negative (Negative); Leukocyte Esterase Negative (Negative); Nitrite Negative (Negative); Urobilinogen 0.2 EU/dL (Up TO 0.2)
== END 2019-07-01 15:27 | disposition short-term general hospital (02) ==
PROVIDERS: Emergency Provider Emergency Medicine; PCP Nurse Practitioner Family
DX: K56.609 Unspecified intestinal obstruction, unspecified as to partial versus complete obstruction (principal); K43.9 Ventral hernia without obstruction or gangrene; I10 Essential (primary) hypertension; Z95.2 Presence of prosthetic heart valve
CPT/HCPCS: 36415; 80053; 83690; 93005; 96361; 96374; 96375; 99252; 99285; 74177; 81003; 83735; 85025; 85610; 85730; 93010; J2405; J3010; J3490

== ENCOUNTER 2019-07-17 22:42 | Inpatient (IN) | payer MEDICARE, SELFPAY ==
--- NOTE | 2019-07-17 22:54 | DI.CT_ITS ---
SYMPTOM/DIAGNOSIS: RECENT INCARCERATED HERNIA REPAIR, VOMITING, EPIGASTRIC ABDOMINAL AND PELVIC CT: 07/17 CT examination was performed with intravenous infusion of 100 cc Omnipaque 350. The previously noted compression fractures of L-1 and L-2, no gross overall change in height from 05/23/19. Mild end plate compressions of L4 and L5 noted as well. The lung bases appear clear. Aortic valve prosthesis incompletely visualized. No pericardial effusion. Liver is unremarkable in appearance. Common bile duct is mildly dilated at about 13 mm maximal diameter consistent with prior cholecystectomy. Obstruction of the distal common duct not entirely excluded and additional evaluation with MRCP may be considered if clinically indicated. Pancreas is unremarkable in appearance. Adrenals and kidneys appear normal. No evidence of urinary tract calcification or obstruction. Abdominal aorta is of normal diameter and no major vascular abnormality is seen. No significant abdominal or pelvic adenopathy is seen. [employer]CH[employer]IAN structures are unremarkable for age. The previously noted ventral hernia seen on 07/01/19 appears to have been surgically repaired with no significant residual hernia. Some fluid is noted in the soft tissues at the umbilicus measuring up to about 18 mm in diameter, infection not excluded but the findings may represent seroma. There are multiple loops of small bowel with thickened wall. This is a nonspecific finding and may reflect previously incarcerated bowel, however, portions of the duodenum and jejunum appear to have wall thickening as well. 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 Abdominal aorta has calcified wall and multiple abdominal vessels including SMA show calcified wall as well. 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 More distal portions of SMA and branches appear to show normal enhancement. However, the possibility of a vascular lesion is not excluded. No gross evidence of obstruction. Colon is unremarkable in appearance with evidence of a presumed prior appendectomy and question prior cecal resection. CONCLUSION: Marked bowel wall thickening, predominantly proximal small bowel, of uncertain etiology. Consider ischemic vs mechanical factors, appropriate follow up studies requested. Fluid collection at umbilical surgical site, small abscess not excluded. Common duct dilatation, nonspecific, distal common duct obstruction not excluded. MRCP may be considered for further evaluation as clinically indicated.
[2019-07-17 23:00] VITALS: BP 152/59; BP 156/65; PULSE 92; PULSE 97; RESP 24; TEMP 36.8; O2SAT 92; O2SAT 98
[2019-07-17] MEDS: Ondansetron 4 MG/2 ML VIAL IVP (23:10)
[2019-07-17 23:15] VITALS: BP 109/70; PULSE 91; O2SAT 99
[2019-07-17 23:22] LABS: Abs Immature Grans 0.07 k/cumm (0.0-0.09); Absolute Basophil Count 0.02 k/cumm (0.0-0.2); Absolute Lymphocyte Count 0.44 k/cumm (1.2-3.4); Absolute Monocyte Count 0.32 k/cumm (0.11-0.7); Absolute Neutrophil Count 7.75 k/cumm (1.2-6.7); Basophils % 0.2; Eosinophils % 2.3; HCT 28.1 % (36.0-46.0); HGB 8.6 g/dL (12.0-15.5); Immature Grans % 0.8; Mean Corp. HGB Concentration 30.6 g/dL (32.0-36.0); Mean Corpuscular Hemoglobin 29.3 pg (27.0-33.0); Mean Corpuscular Volume 95.6 fL (80-95); Mean Platelet Volume 8.9 fL (8.0-11.0); Monocytes % 3.6; Neutrophils % 88.1; Platelet Count 325 x1000/uL (130-400); RBC 2.94 m/cumm (4.00-5.20); RBC Distribution Width 17.4 % (11.7-14.6)
[2019-07-17] MEDS: Breeza Beverage 473 ML BTL PO ×2 (23:28→23:29)
[2019-07-17] MEDS: Omnipaque 350 MG/ML 50 ML BTL PO (23:29)
[2019-07-17 23:30] VITALS: BP 136/64; PULSE 88; RESP 20; O2SAT 98
--- NOTE | 2019-07-17 23:43 | W.ED.GENAD ---
Discharge Plan Disposition Patient Disposition: [facility] INPATIENT Condition: Stable Discharge Details Chief Complaint: Abd Prob Clinical Impression: Abdominal pain, Abdominal fluid collection Primary Care Provider: Tiana Romano ED Provider: Soham Pino Home Meds and New Rx's Prescriptions: No Action aspirin [Aspirin Low Dose] 81 mg Tablet,Delayed Release (Dr/Ec) 81 mg PO DAILY RF: 0 omeprazole 20 mg Capsule,Delayed Release(Dr/Ec) 20 mg PO DAILY RF: 0 metoprolol succinate 25 mg Tablet Extended Release 24 Hr 12.5 mg PO BID RF: 0 clopidogrel [Plavix] 75 mg Tablet 75 mg PO DAILY RF: 0 ferrous sulfate 325 mg (65 mg iron) Tablet 325 mg PO TID RF: 0 folic acid 1 mg Tablet 1 mg PO DAILY RF: 0 ascorbic acid (vitamin C) 500 mg Capsule 500 mg PO TID RF: 0 Medical Decision Making This is a very pleasant 74-year-old female with a notable past medical history of a recent TAVR on aspirin and Plavix, then subsequent recent incarcerated hernia on July 01 that was surgically managed at [facility]. She presents today with abdominal pain that began at noon, with associated vomiting and tenderness. No hematemesis. No urinary complaints. No significant diarrhea. Abdominal exam demonstrates reproducible epigastric and supraumbilical tenderness. Incision site appears clean dry and intact with no evidence of infection. Differential is broad but includes hernia, postoperative complication or leak, or other abnormality. We will gently rehydrate, control her pain, evaluate for infectious etiology, it is CT scan and reassess. 1:[address] scan results have returned, there is evidence of postsurgical changes in the large ventral abdominal wall hernia repair with peripherally enhancing 1.8 cm fluid collection within the surgical bed within the subcutaneous fat. Cannot exclude abscess. There is also nonfocal mural thickening of the small bowel. This may represent inflammatory changes versus infection. Laboratory work-up is relatively benign. No white count, minimal left shift. Hemoglobin stable. Renal function stable. Vital signs continue to be stable. Blood pressure and heart rate stable. Patient does still have continued mild abdominal pain. She has had difficulty tolerating p.o. I contacted the surgeon Dr. Be, and discussed the case with her. Imaging was reviewed, as well as laboratory work-up current patient clinical disposition. I do feel that it is best for the patient stay overnight for further observation, IV fluids, drainage of the fluid collection with further assessment. Surgery does agree. We did review the CT scan findings, Dr. Be does recommend holding off on any antibiotics at this time which I think is notably reasonable with no fever or white count. She has asked that I place admission orders which I well. However she has agreed to assume care of the patient. I have extensively reviewed the treatment plan with the patient. I have addressed all patient concerns at this time. I have also discussed the plan with the admitting physician and they agree with the current assessment and plan and have agreed to assume responsibility for the patient. All parties demonstrate verbal understanding and agreement with our assessment and plan at this time. EKG 22: 53 Rate 97, OR 176, QTc 495, QRS 144, sinus rhythm, left bundle branch block, negative for SCARBOSSA criterion, unchanged from prior EKG on 07/01/2019 IMPRESSION: 1. Postsurgical changes of the left ventral abdominal wall hernia repair with peripherally enhancing 1.8 cm fluid collection within the surgical bed within the subcutaneous fat, cannot exclude abscess. Fluid sampling as clinically warranted. 2. Nonfocal mural thickening of the small bowel. May represent reactive inflammatory bowel wall thickening given recent incarcerated hernia with repair. Cannot exclude other infectious/inflammatory as well as vascular enteropathy. Correlate clinically. 3. Dilation of the common bile duct, 1.0 cm in diameter. This appears stable to prior and may be related to prior cholecystectomy. If clinically warranted, further evaluation with MRCP may be considered. 4. No significant interval change in multiple lumbar vertebral body compression deformities compared to study dated 07/01/2019, new compared to study dated 12/10/2017. Thank you for allowing us to participate in the care of your patient. Dictated and Authenticated by: Shyam Navarro MD 07/18/2019 1:01 AM Eastern Time ([place] & [place]) HPI General Date/Time Provider Initiated Documentation: 07/17/19 22:53. HPI Narrative: This is a pleasant 74-year-old female who presents today for evaluation of abdominal pain via EMS. Patient recently had a TAVR at [facility] and is on daily aspirin and Plavix, unfortunately on July 01 she had an incarcerated hernia and was sent to [facility] where she subsequently had surgical resection of this. She was discharged home and had been doing well, however today at about noon she developed epigastric and supraumbilical abdominal pain. At that time she also noticed a small bulge in that area. She states that this is atypical for her. She has had a few episodes of vomiting, she denies any diarrhea or hematemesis. Pain is notable in that area. She states that it feels similar to her recent hernia. She denies any fever or chills. She denies any chest pain, chest heaviness or chest tightness. She denies any numbness tingling weakness. She denies any other complaints at this time. Related Data Home Medications Medication Instructions Recorded Confirmed aspirin [Aspirin Low Dose] 81 mg PO DAILY 06/04/19 07/17/19 omeprazole 20 mg PO DAILY 06/04/19 07/17/19 metoprolol succinate 12.5 mg PO BID 06/05/19 07/17/19 ascorbic acid (vitamin C) 500 mg PO TID 07/01/19 07/01/19 clopidogrel [Plavix] 75 mg PO DAILY 07/01/19 07/17/19 ferrous sulfate 325 mg PO TID 07/01/19 07/17/19 folic acid 1 mg PO DAILY 07/01/19 07/17/19 Allergies Allergy/AdvReac Type Severity Reaction Status Date / Time No Known Allergies Allergy Unverified 07/17/19 23:03 General Stated Complaint: Abd Prob JEANIE: 3 Review of Systems Review of Systems All systems reviewed & are unremarkable except as noted in HPI and below PFSH Social History Smoking/Tobacco Use Status: Former Tobacco Use Pack-years: 141 Tobacco: How many years used: 47 Alcohol Intake: never Drug use: Never Substance use type: does not use Do you feel safe at home: Yes Do you feel safe in your relationship?: Yes Exam Narrative Exam Narrative: 1.Const: Well-nourished, Well-developed, appearing stated age 2.Eyes: PERRL, no conjunctival injection, and symmetrical lids. 3.ENT: Atraumatic external nose and ears. Moist MM. Neck: Symmetric, trachea midline, No thyromegaly. 4.CVS: +S1/S2, No murmurs or gallops. Peripheral pulses 2+ and equal in all extremities. Brisk capillary refill in all extremities. 5.RESP: Unlabored respiratory effort. Clear to auscultation bilaterally. No wheezes rales or rhonchi 6.GI: Soft, nondistended, no guarding or rebound. Mild to moderate reproducible abdominal tenderness in the supraumbilical and epigastric region. Postoperative stabling demonstrates no discharge or erythema. No evidence of significant induration. 7.MSK: Normocephalic/Atraumatic, Extremities w/o deformity or ttp No cyanosis or clubbing, Normal movement of all extremities 8.Skin: Warm, Dry. No rashes or lesions. 9.Neuro: manager logistic II-XII grossly intact. Sensation grossly intact, no focal neurologic deficits. 10.Psych: (AAO) x3. Appropriate mood and affect Course Vital Signs Temperature 36.8 C 07/17/19 23:00 Pulse 97 H 07/17/19 23:00 Respiratory Rate 24 07/17/19 23:00 Blood Pressure 152/59 H 07/17/19 23:00 Pulse Oximetry 98 07/17/19 23:00 Temperature 36.8 C 07/17/19 23:00 Temperature Source Tympanic 07/17/19 23:00 Pulse 97 H 07/17/19 23:00 Respiratory Rate 24 07/17/19 23:00 Respiratory Effort Non-Labored 07/17/19 23:25 Blood Pressure 152/59 H 07/17/19 23:00 Blood Pressure Position Supine 07/17/19 23:00 Pulse Oximetry 98 07/17/19 23:00 Oxygen Delivery Method Room Air 07/17/19 23:00 Oxygen Flow Rate 0 07/17/19 23:00 Pain Level 10 07/17/19 23:20 Lab/Test Results Lab/Test Results: 07/17/19 23:34 Blood Blood Culture - Pending 07/17/19 23:11 Blood Blood Culture - Pending Laboratory Tests Range/Units 07/17/19 07/17/19 23:11 23:11 WBC (4.4-10.8) k/cumm 8.80 RBC (4.00-5.20) m/cumm 2.94 L Hgb (12.0-15.5) g/dL 8.6 L Hct (36.0-46.0) % 28.1 L MCV (80-95) fL 95.6 H MCH (27.0-33.0) pg 29.3 MCHC (32.0-36.0) g/dL 30.6 L RDW (11.7-14.6) % 17.4 H Plt Count (130-400) x1000/uL 325 MPV (8.0-11.0) fL 8.9 Immature Gran % 0.8 Neutrophils % 88.1 Lymphocytes % 5.0 Monocytes % 3.6 Eosinophils % 2.3 Basophils % 0.2 Absolute Neutrophils (1.2-6.7) k/cumm 7.75 H Absolute Lymphocytes (1.2-3.4) k/cumm 0.44 L Absolute Monocytes (0.11-0.7) k/cumm 0.32 Absolute Eosinophils (0.0-0.7) k/cumm 0.20 Absolute Basophils (0.0-0.2) k/cumm 0.02 Lactate (0.6-1.4) mmol/L 1.0
[2019-07-17 23:44] LABS: PTT Activated 23.2 sec (21.0-31.4)
[2019-07-17 23:45] VITALS: BP 131/73; PULSE 90; RESP 20; O2SAT 95
[2019-07-17 23:48] LABS: Anisocytosis 1+; Hypochromasia 2+
[2019-07-17 23:49] LABS: Polychromasia Present
[2019-07-17 23:50] LABS: ALT 11 U/L (12-78); AST 17 U/L (15-37); Albumin 2.5 g/dL (3.4-5.0); Alkaline Phosphatase 112 U/L (46-116); Anion Gap 10.3 mmol/L (3-11); BUN 21 mg/dL (7-18); Bilirubin, Total 0.3 mg/dL (0.2-1.0); CO2 24.7 mmol/L (21.0-32.0); CREATININE 1.08 mg/dL (0.55-1.02); Calcium 8.9 mg/dL (8.5-10.1); Chloride 104 mmol/L (98-107); Estimated GFR 49.73 (mL/min/1.73m2); Glucose 132 mg/dL (70-100); Lipase 191 U/L (73-393); Potassium 3.8 mmol/L (3.5-5.1); Sodium 139 mmol/L (136-145); Total Protein 6.9 g/dL (6.4-8.2); Troponin I 0.05 ng/mL (0.00-0.06)
[2019-07-18] VITALS (23 sets, daily range): BP systolic 96–141; BP diastolic 42–76; PULSE 82–102; RESP 11–32; TEMP 36.1–36.9; O2SAT 94–100
[2019-07-18] MEDS: Omnipaque 350 MG/ML 100 ML BTL IJ (00:17)
--- NOTE | 2019-07-18 01:01 | DI.VRAD_ITS ---
EXAM: CT Abdomen and Pelvis With Contrast EXAM DATE/TIME: 07/17/2019 12:17 AM CLINICAL HISTORY: 74 years old, female; Abdominal pain; Prior surgery; Surgery date: <1 month; Surgery type: Incarcerated hernia repair; Patient HX: Nausea, vomiting, epigastric pain TECHNIQUE: Imaging protocol: Axial computed tomography images of the abdomen and pelvis with intravenous contrast. Coronal and sagittal reformatted images were created and reviewed. COMPARISON: CT ABDOMEN PELVIS W 07/01/2019 12:[address] abdomen pelvis dated 12/10/2017. FINDINGS: Lungs: Lung bases are clear. Liver: Mild intrahepatic ductal dilation, likely related to prior cholecystectomy. No suspicious hepatic mass. Gallbladder and bile ducts: Gallbladder surgically absent. There is dilation of the common bile duct, 1.0 cm in diameter, similar to prior. Pancreas: Unremarkable. No ductal dilation. Spleen: Unremarkable. No splenomegaly. Adrenals: There is symmetric nodular thickening of the adrenal glands, stable to prior. Kidneys and ureters: Subcentimeter hypodensity in the inferior right renal pole is too small to characterize, statistically most likely cyst, no imaging followup indicated. No hydronephrosis. Ureters normal in course and caliber. Stomach and bowel: There is mild diverticulosis of the distal colon. No focal mural thickening or significant pericolonic inflammatory stranding to suggest acute diverticulitis. Redemonstrated postsurgical changes of right hemicolectomy. There is nonfocal mural thickening of the small bowel with mild surrounding inflammatory stranding. Appendix: Appendix is surgically absent. Intraperitoneal space: No free air. No significant fluid collection. Vasculature: There are moderate scattered atherosclerotic calcifications of the abdominal aorta and its major branches, no abdominal aortic aneurysm. Lymph nodes: No pathologically enlarged lymph nodes. Bladder: Unremarkable as visualized. Reproductive: Unremarkable as visualized. Bones/joints: Diffuse decrease in osseous mineralization consistent with osteopenia. No new acute fracture. No dislocation. No significant interval change in severe L1 and moderate L2 anterior compression deformities compared to study dated 07/01/2019, new compared to study dated 12/10/2017. Less severe compression deformities of L4 and L5 also noted, stable to prior, new to study dated 12/10/2017. Soft tissues: Interval postsurgical changes of the left ventral abdominal wall hernia repair. At the hernia site within the subcutaneous fat, there is peripherally enhancing 1.7 cm AP by 1.8 cm transverse fluid collection. There is diastases of the ventral, midline supraumbilical abdominal wall with small residual fat containing hernia. Other findings: Ascending thoracic aorta stent noted. IMPRESSION: 1. Postsurgical changes of the left ventral abdominal wall hernia repair with peripherally enhancing 1.8 cm fluid collection within the surgical bed within the subcutaneous fat, cannot exclude abscess. Fluid sampling as clinically warranted. 2. Nonfocal mural thickening of the small bowel. May represent reactive inflammatory bowel wall thickening given recent incarcerated hernia with repair. Cannot exclude other infectious/inflammatory as well as vascular enteropathy. Correlate clinically. 3. Dilation of the common bile duct, 1.0 cm in diameter. This appears stable to prior and may be related to prior cholecystectomy. If clinically warranted, further evaluation with MRCP may be considered. 4. No significant interval change in multiple lumbar vertebral body compression deformities compared to study dated 07/01/2019, new compared to study dated 12/10/2017. Dictated and Authenticated by: Shyam Navarro MD. Ordering:ADRIA Rousseau MD
[2019-07-18 01:49] LABS: Bilirubin Negative (Negative); Blood Trace-lysed (Negative); Clarity Clear (Clear); Glucose Negative (Negative); Ketones Negative (Negative); Leukocyte Esterase Trace (Negative); Nitrite Positive (Negative); Specific Gravity <= 1.005 (1.005-1.025); Urobilinogen 0.2 EU/dL (Up TO 0.2)
[2019-07-18 01:55] LABS: Bacteria Few HPF (Negative); C & S Indicated? No/Sq. Contamination; Casts 0-2 Hyaline LPF (Negative); Crystals Negative HPF (Negative); Epithelial Cells Moderate HPF (Negative); Mucus Negative (Negative); RBC 0-2 (0-2); WBC 0-2 HPF (0-5)
[2019-07-18] MEDS: cefTRIAXone 1 GM/50 ML BAG IVPB (02:24)
[2019-07-18] MEDS: Ondansetron 4 MG/2 ML VIAL IVP ×2 (02:50→15:38)
[2019-07-18] MEDS: Normal Saline Flush 10 ML SYR IVP ×2 (02:50→15:39)
[2019-07-18] MEDS: Normal Saline 1,000 ML 150 ML IV (05:57)
[2019-07-18] MEDS: Clopidogrel 75 MG TAB PO (09:31)
[2019-07-18] MEDS: Omeprazole 20 MG CAPCR PO ×2 (09:31→19:51)
[2019-07-18] MEDS: Aspirin E.C. 81 MG TABEC PO (09:31)
[2019-07-18] MEDS: Metoprolol CR 25 MG TABCR 12.5 MG PO ×2 (09:32→19:51)
--- NOTE | 2019-07-18 12:03 | PHARADMIT ---
Admission Pharmacy Clinical Review Vomiting, Abd pain Code Status Full Code Current Weight 63.8 kg Renally Cleared and Narrow Therapeutic Index Meds CrCl~35ml/min QTc Value / Action Taken BP Control, Fever BP 114/70 Afebrile Pain zero Electrolytes reviewed WNL DVT Prophylaxis ASA 81mg....Plavix Opiate Usage / Scheduled Bowel Regimen Ordered MS IVP....no bowel meds yet, last BM 07/17/19 Plt/SCr for Heparin / Enoxaparin Plt 325 SCr 1.08 INR for Warfarin INR 1.0 H/H stable, WBC/Bands H/H 8.6/28.1 WBC 8.8 Antibiotic appropriateness Cultures and Sensitivities blood pending Urinalysis +Nitrites, Rocephin x1 in ED Surgical ABX d/c within 24 hr DM control / Insulin Dosing BG 132 Heart Failure (Check EF%) (EDD's, B-Block, Diuretics) Toprol IV to PO Switch Home Meds Reviewed Home Meds Not Ordered Vit C, Iron, Folic Acid Comments recent hernia repair and valve replacement @ [facility] [place] CT scan: ?fluid collection at hernia site No notes from Surgeon yesterday or today
--- NOTE | 2019-07-18 12:52 | HPE_ITS ---
Date of service: 07/18/19 Time of Service: 12:52 Assessment and Plan (1) Vomiting: Current visit: Yes Status: Acute She feels slightly better today but has not taken in much PO. Will slowly advance her diet as tolerated. The cause of her symptoms may be gastritis or partial SBO. Will increase PPI to twice a day. Plan for staple removal tomorrow. Watch for urine culture results History of Present Illness Narrative: This patient presented to the emergency department early this morning with complaints of abdominal pain and vomiting after eating. Her history is significant for an incarcerated ventral hernia repair that was performed at [facility] on July 01. At that point she was a week out from an aortic valve replacement. She was in the hospital for 3 days and has been doing well enough at home. For the past few days she has noted some upper abdominal pain after eating. The evening prior to admission she had eaten a meal and then about 5 hours later vomited. The patient has been having regular bowel movements and is passing flatus. Today she reports some nausea but has had no further vomiting and has decreased discomfort. She had a CT scan of the abdomen and pelvis that I have reviewed. This shows postsurgical change in the abdominal wall and perhaps some localized inflammation of the small bowel. Review of Systems Constitutional Denies fatigue and Denies headache(s) Eyes Denies change in vision ENT Denies headache(s) and Denies neck mass Cardiovascular Denies chest pain, Denies edema, Denies palpitations and Denies dyspnea Respiratory Denies cough, Denies dyspnea and Denies wheezing Gastrointestinal Denies hematochezia and Denies change in bowel habits Genitourinary Denies abnormal vaginal bleeding and Denies dysuria Musculoskeletal Denies joint swelling Integumentary/Breasts Denies new lesions and Denies rash Neurologic Denies confusion, Denies headache(s) and Denies focal weakness Psychiatric Reports system reviewed and no additional complaints, except as docu and Denies confusion Endocrine Denies fatigue and Denies palpitations Hematologic/Lymphatic Denies lymphadenopathy Allergic/Immunologic Denies wheezing [facility] Medical History Aortic stenosis, severe (Chronic) GERD (gastroesophageal reflux disease) (Chronic) H/O malignant neoplasm of breast (Resolved) H/O malignant neoplasm of colon (Resolved) Hypertension (Chronic) Surgical History H/O cardiac catheterization (Chronic) H/O colonoscopy (Chronic) H/O heart valve replacement with porcine valve (Acute) History of esophagogastroduodenoscopy (EGD) (Chronic) History of ventral hernia repair (Acute) S/P cholecystectomy (Chronic) S/P right hemicolectomy (Chronic) Status post closure of ileostomy (Chronic) Status post right breast lumpectomy (Chronic) Family History Mother Stroke Hypertension Son Diabetes Son Diabetes Father Cancer Brother Cancer Social History Smoking/Tobacco Use Status: Former Tobacco Use Pack-years: 141 Tobacco: How many years used: 47 Alcohol Intake: never Drug use: Never Substance use type: does not use Do you feel safe at home: Yes Do you feel safe in your relationship?: Yes Meds Home Medications Medication Instructions Recorded Confirmed Type aspirin [Aspirin Low Dose] 81 mg PO DAILY 06/04/19 07/17/19 History omeprazole 20 mg PO DAILY 06/04/19 07/17/19 History metoprolol succinate 12.5 mg PO BID 06/05/19 07/17/19 History ascorbic acid (vitamin C) 500 mg PO TID 07/01/19 07/01/19 History clopidogrel [Plavix] 75 mg PO DAILY 07/01/19 07/17/19 History ferrous sulfate 325 mg PO TID 07/01/19 07/17/19 History folic acid 1 mg PO DAILY 07/01/19 07/17/19 History Allergies Allergy/AdvReac Type Severity Reaction Status Date / Time No Known Allergies Allergy Unverified 07/17/19 23:03 Exam Const General: healthy appearing and not in acute distress Nutritional Appearance: well nourished Orientation: oriented x3 HENMT Head: normal to inspection Eyes Sclera: sclerae normal Pupils: PERRL Neck Neck: no lymphadenopathy Thyroid: thyroid normal Carotids: no bruits Resp Effort & Inspection: normal respiratory effort Auscultation: clear to auscultation bilaterally and no wheezes Cardio Rate: regular rate Rhythm: regular rhythm Pulses: dorsalis pedis pulses present GI Inspection: non-distended Palpation: soft and no hepatosplenomegaly Other: Tender in epigastric region. Incision in umbilical region looks well healed, no infection Skin General skin exam: no rashes or lesions noted Neuro General: alert Cognition: normal cognition Extrem General: normal to inspection Psych Affect: normal affect Attitude: cooperative Results Labs : 07/17/19 23:11 07/17/19 23:11 Laboratory Results - last 24 hr 07/17/19 07/17/19 07/17/19 23:11 23:11 23:11 WBC 8.80 RBC 2.94 L Hgb 8.6 L Hct 28.1 L MCV 95.6 H MCH 29.3 MCHC 30.6 L RDW 17.4 H Plt Count 325 MPV 8.9 Immature Gran % 0.8 Neutrophils % 88.1 Lymphocytes % 5.0 Monocytes % 3.6 Eosinophils % 2.3 Basophils % 0.2 Absolute Neutrophils 7.75 H Absolute Lymphocytes 0.44 L Absolute Monocytes 0.32 Absolute Eosinophils 0.20 Absolute Basophils 0.02 RBC Morphology See below Polychromasia Present Hypochromasia 2+ Anisocytosis 1+ PT INR APTT Sodium 139 Potassium 3.8 Chloride 104 Carbon Dioxide 24.7 Anion Gap 10.3 BUN 21 H Creatinine 1.08 H Estimated GFR/1.73 m2 49.73 Glucose 132 H Lactate 1.0 Calcium 8.9 Total Bilirubin 0.3 AST 17 ALT 11 L Alkaline Phosphatase 112 Troponin I 0.05 Total Protein 6.9 Albumin 2.5 L Lipase Urine Color Urine Clarity Urine pH Ur Specific [place] Urine Protein Urine Ketones Urine Blood Urine Nitrite Urine Bilirubin Urine Urobilinogen Ur Leukocyte Esterase Urine RBC Urine WBC Ur Epithelial Cells Urine Crystals Urine Bacteria Urine Casts Urine Mucus Ur Culture Indicated? Urine Glucose 07/17/19 07/17/19 07/18/19 23:11 23:24 01:40 WBC RBC Hgb Hct MCV MCH MCHC RDW Plt Count MPV Immature Gran % Neutrophils % Lymphocytes % Monocytes % Eosinophils % Basophils % Absolute Neutrophils Absolute Lymphocytes Absolute Monocytes Absolute Eosinophils Absolute Basophils RBC Morphology Polychromasia Hypochromasia Anisocytosis PT 10.0 INR 1.0 APTT 23.2 Sodium Potassium Chloride Carbon Dioxide Anion Gap BUN Creatinine Estimated GFR/1.73 m2 Glucose Lactate Calcium Total Bilirubin AST ALT Alkaline Phosphatase Troponin I Total Protein Albumin Lipase 191 Urine Color Yellow Urine Clarity Clear Urine pH 5.0 Ur Specific [place] <= 1.005 Urine Protein Negative Urine Ketones Negative Urine Blood Trace-lysed H Urine Nitrite Positive H Urine Bilirubin Negative Urine Urobilinogen 0.2 Ur Leukocyte Esterase Trace H Urine RBC 0-2 Urine WBC 0-2 Ur Epithelial Cells Moderate Urine Crystals Negative Urine Bacteria Few Urine Casts 0-2 hyaline Urine Mucus Negative Ur Culture Indicated? No/sq. contamination Urine Glucose Negative Last Vital Signs Temp 97.9 F 07/18/19 08:00 Pulse 87 07/18/19 08:00 Resp 16 07/18/19 08:00 BP 114/70 07/18/19 08:00 Pulse Ox 98 07/18/19 08:00
--- NOTE | 2019-07-18 13:01 | PDOC.CMIN ---
Care Management Initial Assess REASON FOR HOSPITALIZATION:: Vomiting, Abdominal Pain, S/P [place] [facility] [place] MEDICAL HISTORY/PAST SURGICAL HISTORY:: HTN, GERD, HTN, Malignant neoplasam of the breast and colon. Surgical Hx:ardiac catheterization,colonoscopy, cholecystectomy (Chronic), right hemicolectomy (Chronic), Status post closure of ileostomy (Chronic). Status post right breast lumpectomy (Chronic), Hernia Repair PREVIOUS FUNCTIONAL STATUS/SOCIAL/FAMILY SUPPORTS:: Polina resides in [facility] with her of almost fifty years; Eugenio who has dementia. Her son, Martínez, his girlfrioend and her 19 y.o. granddaughter now live with her and help provide care to Eugenio. Eugenio has become increasingly difficult to manage with frequent angry outbursts both verbal and physical. Polina states she has no services at home and in fact when she called for services to help manage Eugenio she was refused help. She said that agencies, not sure which ones, told her there was no service or help available for him. CURRENT FUNCTIONAL STATUS:: Lying in bed and states she is still in pain. Primarily worried about her son and how difficult it is to take care of Eugenio at home now that he has become combative. Martínez has been the one who does all of the shopping and chores at home. He also is becoming the only one who can manage Eugenio during the frequent outbursts. ADVANCE DIRECTIVES:: None on file Has patient been provided with information about the portal?: No Did the patient sign up for the portal?: No CODE STATUS:: Full Code INSURANCE COVERAGE / FINANCIAL ISSUES:: Medicare CURRENT HOME/COMMUNITY SERVICES/EQUIPMENT:: None at this time PRIMARY CARE PHYSICIAN:: Tiana Romano NP POTENTIAL DISCHARGE NEEDS:: Services for her Eugenio to relieve her of some pressure at home PATIENT/FAMILY EDUCATION NEEDS:: Discharge instructions ANTICIPATED BARRIERS TO DISCHARGE:: None identified TRANSPORTATION:: Family PLAN:: Polina will return home when medically cleared for discharge. No services anticipated. Martínez will transport by car.
[2019-07-18] MEDS: Normal Saline 1,000 ML 125 ML IV ×2 (13:43→21:17)
[2019-07-19 04:10] VITALS: BP 110/55; PULSE 81; RESP 18; TEMP 36.2; O2SAT 98
[2019-07-19] MEDS: Normal Saline 1,000 ML 125 ML IV (04:51)
[2019-07-19 07:22] VITALS: BP 132/73; PULSE 85; RESP 17; TEMP 36.2; O2SAT 97
--- NOTE | 2019-07-19 08:09 | PDOC.CMPRO ---
- If Service Date Differs Date of service: 07/19/19 Time of Service: 08:10 Care Management Progress Note S/O:Polina was sitting up in bed when CHEPE met with her. She was pleasant and cooperative and engaged readily in conversation. She shared the details of her home life with her who has dementia and has become violent. Polina states that she has reached out for help in the community but has been told there is nothing anyone can do to help her. CHEPE contacted Josefa at [facility] and she will reach out to Polina to set up a home visit to asses the situation and explore options. A: Polina is a 74 year old woman admitted to [facility] on 07/18/19 with vomiting P: Polina will return home when medically cleared for discharge. CHEPE has contacted [facility] to assist with the management of Polina's who has dementia . CHEPE will continue to provide support to patient, family and discharge planning needs.
--- NOTE | 2019-07-19 08:16 | PGE_ITS ---
Date of Service Date of service: 07/19/19 Time of Service: 08:16 Assessment and Plan (1) Vomiting: Current visit: Yes Status: Acute Patient is tolerating clear liquid diet. She denies any nausea and vomiting. (+) BM yesterday afternoon. Will remove renetta today. Disposition- Possible D/C home later today, if tolerating regular diet. Subjective Interval history since last seen: Patient reports that she is feeling better today. She tolerated a liquid diet yesterday. She denies nausea and vomiting. (+) Flatus. Exam Const General: cooperative and comfortable Orientation: alert and oriented x3 Resp Effort & Inspection: normal respiratory effort, no audible wheezes and no cough GI Inspection: normal to inspection and non-distended Palpation: soft, no guarding and nontender Auscultation: normal bowel sounds Objective Objective Clinical Data: Vital Signs Temperature 36.2 C L 07/19/19 04:10 Temperature Source Tympanic 07/19/19 04:10 Pulse 81 07/19/19 04:10 Pulse Rhythm Regular 07/18/19 08:10 Pulse 94 H 07/18/19 02:15 Respiratory Rate 18 07/19/19 04:10 Respiratory Effort Non-Labored 07/18/19 19:50 Respiratory Depth Normal 07/18/19 19:50 Respiratory Pattern Normal 07/18/19 19:50 Blood Pressure 110/55 L 07/19/19 04:10 Blood Pressure Mean 85 07/18/19 02:15 Blood Pressure Position Supine 07/17/19 23:00 Pulse Oximetry 98 07/19/19 04:10 Oxygen Delivery Method Room Air 07/19/19 04:10 Oxygen Flow Rate 0 07/19/19 04:10 Pain Level 0 07/18/19 23:31 Intake & Output 07/18/19 07/19/19 07/19/19 18:59 06:59 18:59 Intake Total 1555 / 3446.667 1891.667 / 3446.667 Output Total 1775 / 3375 1200 / 3375 400 / 400 Balance -220 / 71.667 691.667 / 71.667 -400 / -400 Weight 63.9 kg Intake: IV 525 / 2416.667 1891.667 / 2416.667 Oral 1030 / 1030 Output: Urine 1775 / 3375 1200 / 3375 400 / 400 Other: Urine Color Yellow Yellow Yellow Urine Appearance Clear Clear Voiding Methods Toilet Toilet Toilet Laboratory Results WBC 8.80 k/cumm (4.4-10.8) 07/17/19 23:11 RBC 2.94 m/cumm (4.00-5.20) L 07/17/19 23:11 Hgb 8.6 g/dL (12.0-15.5) L 07/17/19 23:11 Hct 28.1 % (36.0-46.0) L 07/17/19 23:11 MCV 95.6 fL (80-95) H 07/17/19 23:11 MCH 29.3 pg (27.0-33.0) 07/17/19 23:11 MCHC 30.6 g/dL (32.0-36.0) L 07/17/19 23:11 RDW 17.4 % (11.7-14.6) H 07/17/19 23:11 Plt Count 325 x1000/uL (130-400) 07/17/19 23:11 MPV 8.9 fL (8.0-11.0) 07/17/19 23:11 Immature Gran % 0.8 07/17/19 23:11 88.1 07/17/19 23:11 5.0 07/17/19 23:11 3.6 07/17/19 23:11 2.3 07/17/19 23:11 0.2 07/17/19 23:11 Absolute Neutrophils 7.75 k/cumm (1.2-6.7) H 07/17/19 23:11 Absolute Lymphocytes 0.44 k/cumm (1.2-3.4) L 07/17/19 23:11 Absolute Monocytes 0.32 k/cumm (0.11-0.7) 07/17/19 23:11 Absolute Eosinophils 0.20 k/cumm (0.0-0.7) 07/17/19 23:11 Absolute Basophils 0.02 k/cumm (0.0-0.2) 07/17/19 23:11 RBC Morphology See below 07/17/19 23:11 Present 07/17/19 23:11 2+ 07/17/19 23:11 1+ 07/17/19 23:11 PT 10.0 sec (9.3-11.0) 07/17/19 23:24 INR 1.0 (0.9-1.1) 07/17/19 23:24 APTT 23.2 sec (21.0-31.4) 07/17/19 23:24 Sodium 139 mmol/L (136-145) 07/17/19 23:11 Potassium 3.8 mmol/L (3.5-5.1) 07/17/19 23:11 Chloride 104 mmol/L (98-107) 07/17/19 23:11 Carbon Dioxide 24.7 mmol/L (21.0-32.0) 07/17/19 23:11 10.3 mmol/L (3-11) 07/17/19 23:11 BUN 21 mg/dL (7-18) H 07/17/19 23:11 1.08 mg/dL (0.55-1.02) H 07/17/19 23:11 49.73 (mL/min/1.73m2) 07/17/19 23:11 Glucose 132 mg/dL (70-100) H 07/17/19 23:11 1.0 mmol/L (0.6-1.4) 07/17/19 23:11 Calcium 8.9 mg/dL (8.5-10.1) 07/17/19 23:11 0.3 mg/dL (0.2-1.0) 07/17/19 23:11 AST 17 U/L (15-37) 07/17/19 23:11 ALT 11 U/L (12-78) L 07/17/19 23:11 112 U/L (46-116) 07/17/19 23:11 0.05 ng/mL (0.00-0.06) 07/17/19 23:11 6.9 g/dL (6.4-8.2) 07/17/19 23:11 2.5 g/dL (3.4-5.0) L 07/17/19 23:11 191 U/L (73-393) 07/17/19 23:11 Yellow (Yellow) 07/18/19 01:40 Clear (Clear) 07/18/19 01:40 5.0 (5-8) 07/18/19 01:40 Ur Specific [place] <= 1.005 (1.005-1.025) 07/18/19 01:40 Negative mg/dL (Negative) 07/18/19 01:40 Negative mg/dL (Negative) 07/18/19 01:40 Trace-lysed (Negative) H 07/18/19 01:40 Positive (Negative) H 07/18/19 01:40 Negative (Negative) 07/18/19 01:40 0.2 EU/dL (Up TO 0.2) 07/18/19 01:40 Ur Leukocyte Esterase Trace (Negative) H 07/18/19 01:40 0-2 (0-2) 07/18/19 01:40 0-2 HPF (0-5) 07/18/19 01:40 Ur Epithelial Cells Moderate HPF (Negative) 07/18/19 01:40 Negative HPF (Negative) 07/18/19 01:40 Few HPF (Negative) 07/18/19 01:40 0-2 hyaline LPF (Negative) 07/18/19 01:40 Negative (Negative) 07/18/19 01:40 Ur Culture Indicated? No/sq. contamination 07/18/19 01:40 Negative mg/dL (Negative) 07/18/19 01:40
[2019-07-19] MEDS: Omeprazole 20 MG CAPCR PO ×2 (09:21→20:11)
[2019-07-19] MEDS: Metoprolol CR 25 MG TABCR 12.5 MG PO ×2 (09:21→20:11)
[2019-07-19] MEDS: Aspirin E.C. 81 MG TABEC PO (09:21)
[2019-07-19] MEDS: Clopidogrel 75 MG TAB PO (09:21)
[2019-07-19] MEDS: Normal Saline 1,000 ML 30 ML IV ×2 (09:43→20:11)
[2019-07-19 11:07] VITALS: BP 137/73; PULSE 80; RESP 18; TEMP 36.3; O2SAT 98
--- NOTE | 2019-07-19 14:17 | CHAPLAIN ---
Polina was resting in bed when I visited. Her son, Martínez, and , Eugenio, were visiting as well. Polina was pleasant and open to conversation. She told me she is from [facility] originally, and moved to [facility] for several years and returned to [facility] three years ago. I explained my role and offered support.
[2019-07-19] MEDS: Ondansetron 4 MG/2 ML VIAL IVP (14:21)
[2019-07-19] MEDS: Normal Saline Flush 10 ML SYR IVP ×3 (14:22→21:15)
[2019-07-19 14:57] VITALS: BP 131/73; PULSE 86; RESP 18; TEMP 36.6; O2SAT 98
--- NOTE | 2019-07-19 14:59 | W.PM.PROGNOT ---
Date of Service Date of service: 07/19/19 Time of Service: 14:59 Assessment and Plan (1) Vomiting: Current visit: Yes Status: Acute Will check stool cultures If symptoms do not improve, may need to consider EGD Patient will need to stay due to ongoing symptoms Subjective Interval history since last seen: Patient had some crampy epigastric and RUQ discomfort shortly after eating. The pain has improved but she just needed treatment for nausea Also notes diarrhea with 3-4 stools today. Objective Objective Clinical Data: Vital Signs Temperature 97.3 F L 07/19/19 11:07 Temperature Source Tympanic 07/19/19 11:07 Pulse 80 07/19/19 11:07 Pulse Rhythm Regular 07/19/19 09:15 Pulse 94 H 07/18/19 02:15 Respiratory Rate 18 07/19/19 11:07 Respiratory Effort 07/19/19 09:15 Respiratory Depth Normal 07/19/19 09:15 Respiratory Pattern Normal 07/19/19 09:15 Blood Pressure 137/73 07/19/19 11:07 Blood Pressure Mean 85 07/18/19 02:15 Blood Pressure Position Supine 07/17/19 23:00 Pulse Oximetry 98 07/19/19 11:07 Oxygen Delivery Method Room Air 07/19/19 11:07 Oxygen Flow Rate 0 07/19/19 11:07 Pain Level 0 07/19/19 11:07 Intake & Output 07/18/19 07/19/19 07/19/19 23:59 11:59 23:59 Intake Total 1755.834 / 2550.834 1884.166 / 2124.166 240 / 2124.166 Output Total 2049 1600 / 1600 Balance -294.166 / -574.166 284.166 / 524.166 240 / 524.166 Weight 140 lb 14.006 oz Intake: IV 945.834 / 4815.314 3179.166 / 1554.166 Oral 810 / 1030 330 / 570 240 / 570 Output: Urine 2049 1600 / 1600 Other: Urine Color Yellow Yellow Urine Appearance Clear Clear Urine Odor None Stool Size Small Voiding Methods Toilet Toilet Laboratory Results WBC 8.80 k/cumm (4.4-10.8) 07/17/19 23:11 RBC 2.94 m/cumm (4.00-5.20) L 07/17/19 23:11 Hgb 8.6 g/dL (12.0-15.5) L 07/17/19 23:11 Hct 28.1 % (36.0-46.0) L 07/17/19 23:11 MCV 95.6 fL (80-95) H 07/17/19 23:11 MCH 29.3 pg (27.0-33.0) 07/17/19 23:11 MCHC 30.6 g/dL (32.0-36.0) L 07/17/19 23:11 RDW 17.4 % (11.7-14.6) H 07/17/19 23:11 Plt Count 325 x1000/uL (130-400) 07/17/19 23:11 MPV 8.9 fL (8.0-11.0) 07/17/19 23:11 Immature Gran % 0.8 07/17/19 23:11 88.1 07/17/19 23:11 5.0 07/17/19 23:11 3.6 07/17/19 23:11 2.3 07/17/19 23:11 0.2 07/17/19 23:11 Absolute Neutrophils 7.75 k/cumm (1.2-6.7) H 07/17/19 23:11 Absolute Lymphocytes 0.44 k/cumm (1.2-3.4) L 07/17/19 23:11 Absolute Monocytes 0.32 k/cumm (0.11-0.7) 07/17/19 23:11 Absolute Eosinophils 0.20 k/cumm (0.0-0.7) 07/17/19 23:11 Absolute Basophils 0.02 k/cumm (0.0-0.2) 07/17/19 23:11 RBC Morphology See below 07/17/19 23:11 Present 07/17/19 23:11 2+ 07/17/19 23:11 1+ 07/17/19 23:11 PT 10.0 sec (9.3-11.0) 07/17/19 23:24 INR 1.0 (0.9-1.1) 07/17/19 23:24 APTT 23.2 sec (21.0-31.4) 07/17/19 23:24 Sodium 139 mmol/L (136-145) 07/17/19 23:11 Potassium 3.8 mmol/L (3.5-5.1) 07/17/19 23:11 Chloride 104 mmol/L (98-107) 07/17/19 23:11 Carbon Dioxide 24.7 mmol/L (21.0-32.0) 07/17/19 23:11 10.3 mmol/L (3-11) 07/17/19 23:11 BUN 21 mg/dL (7-18) H 07/17/19 23:11 1.08 mg/dL (0.55-1.02) H 07/17/19 23:11 49.73 (mL/min/1.73m2) 07/17/19 23:11 Glucose 132 mg/dL (70-100) H 07/17/19 23:11 1.0 mmol/L (0.6-1.4) 07/17/19 23:11 Calcium 8.9 mg/dL (8.5-10.1) 07/17/19 23:11 0.3 mg/dL (0.2-1.0) 07/17/19 23:11 AST 17 U/L (15-37) 07/17/19 23:11 ALT 11 U/L (12-78) L 07/17/19 23:11 112 U/L (46-116) 07/17/19 23:11 0.05 ng/mL (0.00-0.06) 07/17/19 23:11 6.9 g/dL (6.4-8.2) 07/17/19 23:11 2.5 g/dL (3.4-5.0) L 07/17/19 23:11 191 U/L (73-393) 07/17/19 23:11 Yellow (Yellow) 07/18/19 01:40 Clear (Clear) 07/18/19 01:40 5.0 (5-8) 07/18/19 01:40 Ur Specific [place] <= 1.005 (1.005-1.025) 07/18/19 01:40 Negative mg/dL (Negative) 07/18/19 01:40 Negative mg/dL (Negative) 07/18/19 01:40 Trace-lysed (Negative) H 07/18/19 01:40 Positive (Negative) H 07/18/19 01:40 Negative (Negative) 07/18/19 01:40 0.2 EU/dL (Up TO 0.2) 07/18/19 01:40 Ur Leukocyte Esterase Trace (Negative) H 07/18/19 01:40 0-2 (0-2) 07/18/19 01:40 0-2 HPF (0-5) 07/18/19 01:40 Ur Epithelial Cells Moderate HPF (Negative) 07/18/19 01:40 Negative HPF (Negative) 07/18/19 01:40 Few HPF (Negative) 07/18/19 01:40 0-2 hyaline LPF (Negative) 07/18/19 01:40 Negative (Negative) 07/18/19 01:40 Ur Culture Indicated? No/sq. contamination 07/18/19 01:40 Negative mg/dL (Negative) 07/18/19 01:40
[2019-07-19] MEDS: MORPHine 2 MG/ML SYR 1 MG IVP ×2 (17:56→21:15)
[2019-07-19 18:37] VITALS: BP 121/55; PULSE 71; RESP 17; TEMP 37; O2SAT 94
[2019-07-19 20:16] VITALS: BP 113/51; PULSE 84; RESP 16; TEMP 36.8; O2SAT 95
[2019-07-20] MEDS: Normal Saline Flush 10 ML SYR IVP (01:26)
[2019-07-20] MEDS: MORPHine 2 MG/ML SYR 1 MG IVP (01:27)
[2019-07-20 03:32] VITALS: BP 112/65; PULSE 85; RESP 19; TEMP 36.9; O2SAT 97
[2019-07-20 07:36] VITALS: BP 127/73; PULSE 76; RESP 17; TEMP 36.3; O2SAT 97
--- NOTE | 2019-07-20 08:00 | DI.CT_ITS ---
SYMPTOM/DIAGNOSIS: ABDOMINAL PAIN/ ? MESENTERIC ISCHEMIA ABDOMINAL AND PELVIC CT: 07/20 CT examination of the abdomen and pelvis was performed utilizing CTA protocol with oral contrast also administered. CT angiography was performed with multi slice acquisition and multi planar and 3D reconstruction. Images obtained through the lung bases are unremarkable. Liver, spleen and pancreas appear normal. Gallbladder has been surgically removed. No biliary dilatation Adrenals and kidneys are unremarkable. No evidence of urinary tract calcification or obstruction. Post surgical findings noted in umbilical region, unchanged from 07/17/19. The loops of very abnormal appearing jejunum seen on the previous examination of 07/17 appear essentially normal on today's examination with no significant wall thickening. Mesenteric edema has essentially resolved with minimal free fluid still noted in the pelvis. No evidence of obstruction. No evidence of perforation. No evidence of ischemic bowel. Abdominal aorta is of normal diameter with a moderately calcified wall throughout. Calcific changes at the origins of celiac trunk and superior mesenteric artery are noted as well. No other significant abnormality involving celiac trunk and major branches. 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 No evidence of obstruction and the more distal portions of the SMA branches appear fairly well opacified as visualized. Inferior mesenteric artery is unremarkable. Common iliac arteries, internal iliac arteries and external iliac arteries bilaterally show significant calcified atheromatous plaque but no evidence of occlusion. No aneurysm seen. Renal arteries show calcified atheromatous plaque. Findings consistent with greater than 50% luminal diameter stenosis, left renal artery proximally. Parenchymal enhancement of the renal cortex appears symmetrical bilaterally. CONCLUSION: 1. Marked interval improvement in appearance of previously noted abnormal jejunal loops which now appear nearly normal. Minimal wall thickening and dilatation may persist 2. Extensive atheromatous changes, no occlusive process in abdominal aorta or major branch vessels as described above.
[2019-07-20] MEDS: Omnipaque 350 MG/ML 50 ML BTL IJ (08:06)
[2019-07-20] MEDS: Breeza Beverage 473 ML BTL PO (08:07)
[2019-07-20] MEDS: Omnipaque 350 MG/ML 100 ML BTL IJ (08:07)
[2019-07-20] MEDS: Omeprazole 20 MG CAPCR PO (09:18)
[2019-07-20] MEDS: Clopidogrel 75 MG TAB PO (09:18)
[2019-07-20] MEDS: Aspirin E.C. 81 MG TABEC PO (09:18)
[2019-07-20] MEDS: Metoprolol CR 25 MG TABCR 12.5 MG PO (09:19)
[2019-07-20] MEDS: Sucralfate 1 GM TAB PO (10:39)
[2019-07-20 11:22] VITALS: BP 119/73; PULSE 77; RESP 19; TEMP 36.5; O2SAT 98
--- NOTE | 2019-07-20 15:01 | W.PM.DS.N ---
Date of service: 07/20/19 Time of Service: 15:01 DS: Diagnosis Discharge Diagnosis (1) Vomiting: Status: Acute Discharge Plan Disposition Patient Disposition: HOME Condition: Stable Discharge Details Chief Complaint: Abd Prob Clinical Impression: Abdominal pain, Abdominal fluid collection Reason For Visit: VOMITING, ABDOMINAL PAIN Admit Date/Time: 07/18/19 01:10 Admit Provider: Ashly Saravia Attending Provider: Ashly Saravia Primary Care Provider: Tiana Romano ED Provider: Soham Pino Hospital Course Hospital Course: The patient presented with upper abdominal pain and vomiting. The vomiting resolved shortly after admission. She continued to have pain after eating so a follow up CT was obtained. This showed improvement in the small bowel thickening seen on the admission CT. She was treated for a presumed ulcer or gastritis with the addition of Carafate. On the day of discharge, she was tolerating a diet and had a benign abdominal exam. Home Meds and New Rx's Prescriptions: New sucralfate [Carafate] 1 gram tablet 1 gm PO QACHS Qty: 120 RF: 1 Continued aspirin [Aspirin Low Dose] 81 mg Tablet,Delayed Release (Dr/Ec) 81 mg PO DAILY RF: 0 omeprazole 20 mg Capsule,Delayed Release(Dr/Ec) 20 mg PO DAILY RF: 0 metoprolol succinate 25 mg Tablet Extended Release 24 Hr 12.5 mg PO BID RF: 0 clopidogrel [Plavix] 75 mg Tablet 75 mg PO DAILY RF: 0 ferrous sulfate 325 mg (65 mg iron) Tablet 325 mg PO TID RF: 0 folic acid 1 mg Tablet 1 mg PO DAILY RF: 0 ascorbic acid (vitamin C) 500 mg Capsule 500 mg PO TID RF: 0 Discharge Instructions Additional Instructions: Follow up in 2 weeks to plan for an outpatient EGD and colonoscopy Call for worsening pain or vomiting Referrals: Ashly Saravia MD [ [facility] STAFF PHYSICIAN] - (Please make an appointment for two week) Activity:: Activity as Tolerated Equipment/Supplies:: No Equipment Needed Diet:: Small meals, no bulky foods such a raw fruits or veggies Discharge Orders Discharge Orders: Discharge Order (Routine); Ordered 07/20/19 Ordered By: Ashly Saravia DS: Data Vitals/I&O Vitals and I&O: Vital Signs Temperature 97.7 F 07/20/19 11:22 Temperature Source Tympanic 07/20/19 11:22 Pulse 77 07/20/19 11:22 Pulse Rhythm Regular 07/20/19 07:45 Pulse 94 H 07/18/19 02:15 Respiratory Rate 19 07/20/19 11:22 Respiratory Effort Non-Labored 07/20/19 07:45 Respiratory Depth Normal 07/20/19 07:45 Respiratory Pattern Normal 07/20/19 07:45 Blood Pressure 119/73 07/20/19 11:22 Blood Pressure Mean 85 07/18/19 02:15 Blood Pressure Position Supine 07/17/19 23:00 Pulse Oximetry 98 07/20/19 11:22 Oxygen Delivery Method Room Air 07/20/19 11:22 Oxygen Flow Rate 0 07/20/19 11:22 Pain Level 5 07/20/19 11:22 Intake & Output 07/19/19 07/20/19 07/20/19 23:59 11:59 23:59 Intake Total 854 / 2738.166 240 / 240 Output Total 900 / 2500 1400 / 1400 Balance -46 / 238.166 -1400 / -1160 240 / -1160 Weight 144 lb 9.972 oz Intake: IV 314 / 1868.166 Oral 540 / 870 240 / 240 Output: Urine 900 / 2500 1400 / 1400 Other: Urine Color Yellow Pale Yellow Urine Appearance Clear Clear Urine Odor Normal None Stool Size Small Stool Characteristics Liquid Brown Voiding Methods Toilet Toilet Labs on day of discharge: Labs from last 24 hours 07/19/19 19:43 Stool Campylobacter PCR Pending Stool Salmonella PCR Pending Stool Shigella PCR Pending Shiga Toxin (PCR) Pending Preliminary micro results at discharge 07/17/19 23:34 Blood Culture - Preliminary Blood NO GROWTH 48 HOURS 07/17/19 23:11 Blood Culture - Preliminary Blood NO GROWTH 48 HOURS [facility] Medical History Aortic stenosis, severe (Chronic) GERD (gastroesophageal reflux disease) (Chronic) H/O malignant neoplasm of breast (Resolved) H/O malignant neoplasm of colon (Resolved) Hypertension (Chronic) Surgical History H/O cardiac catheterization (Chronic) H/O colonoscopy (Chronic) H/O heart valve replacement with porcine valve (Acute) History of esophagogastroduodenoscopy (EGD) (Chronic) History of ventral hernia repair (Acute) S/P cholecystectomy (Chronic) S/P right hemicolectomy (Chronic) Status post closure of ileostomy (Chronic) Status post right breast lumpectomy (Chronic) Family History Mother Stroke Hypertension Son Diabetes Son Diabetes Father Cancer Brother Cancer Social History Smoking/Tobacco Use Status: Former Tobacco Use Pack-years: 141 Tobacco: How many years used: 47 Alcohol Intake: never Drug use: Never Substance use type: does not use Do you feel safe at home: Yes Do you feel safe in your relationship?: Yes
--- NOTE | 2019-07-20 17:11 | PDOC.CMPRO ---
- If Service Date Differs Date of service: 07/20/19 Time of Service: 17:11 Care Management Progress Note S/O:Polina continues to show improvement.She states she is feeling better and is tolerating food well. Polina's and son came to visit this morning when CM was meeting with her. She introduced them and her Eugenio was pleasant and interacted appropriately. Later Polina shared that he is almost always good in the morning but declines as the day wears on, usually starting around 3pm. She was reassured that [facility] would follow up with the clinical coordinator at [facility] where her 's PCP practices. A: Polina is a 74 year old woman admitted to [facility] on 07/18/19 with vomiting P: Polina will return home when medically cleared for discharge. [facility] has contacted [facility] to assist with the management of Polina's who has dementia . CM will continue to provide support to patient, family and discharge planning needs.
[2019-07-21 11:27] LABS: Campylobacter PCR SEE COMMENTS; Salmonella PCR SEE COMMENTS; Shiga Toxin PCR SEE COMMENTS; Shigella/Enteroinvasive Ecoli SEE COMMENTS
== END 2019-07-20 15:50 | disposition home or self-care (01) | DRG 392 ==
LOC: ER 07-18 01:28 → MS 07-18 02:30
PROVIDERS: Admitting Provider Surgery; Emergency Provider Student in an Organized Health Care Education/Training Program; PCP Nurse Practitioner Family; Visit Provider Surgery
DX: R11.10 Vomiting, unspecified (principal); R10.10 Upper abdominal pain, unspecified; Z98.890 Other specified postprocedural states; I10 Essential (primary) hypertension; K25.9 Gastric ulcer, unspecified as acute or chronic, without hemorrhage or perforation; K29.70 Gastritis, unspecified, without bleeding
CPT/HCPCS: 36415; 80053; 83690; 87040; 87505; 93005; 96365; 96375; 96376; 99222; 99231; 99238; 99285; NC; 74174; 74177; 81003; 81015; 83605; 84484; 85025; 85610; 85730; 87324; 93010; J0696; J2270; J2405; J3490; Q9967

== ENCOUNTER 2020-04-16 06:52 | Emergency (ER) | payer MEDICARE, SELFPAY ==
[2020-04-16] VITALS (25 sets, daily range): BP systolic 111–149; BP diastolic 52–99; PULSE 68–86; RESP 9–25; TEMP 36.5–36.6; O2SAT 92–98
--- NOTE | 2020-04-16 07:00 | DI.CT_ITS ---
EXAM: CT ABDOMEN PELVIS W CLINICAL HISTORY: mid abdominal pain and vomit TECHNIQUE: Imaging Protocol: Axial computed tomography images with coronal and sagittal reformatted images were created and reviewed CONTRAST MATERIAL: Intravenous: Omnipaque 350 Contrast volume:100 mL Oral: No COMPARISON: CT CT ABDOMEN/ PELVIS CTA from 07/20/2019 FINDINGS: ABDOMEN: Lung Bases: Infiltrate in the right middle lobe which may represent atelectasis, scarring or pneumoni a. Liver: Normal density. No measurable mass. There is dilatation of the intra and extrahepatic bile karen ts. This is more prominent compared to the prior examination from 07/20/2019. Portal, Superior Mesenteric, and Splenic Veins: Unremarkable. Gallbladder and Biliary Tract: Status post cholecystectomy. Pancreas: Normal density, no abnormal calcifications or inflammatory process. Spleen: Normal. Adrenals: Stable appearance of the adrenal glands. Kidneys: Normal size, contour and axis. No radiodense stones or obstructive uropathy. Stable right re nal cyst. Abdominal Aorta: Abdominal portion non-dilated. Atherosclerosis. Bowel: There are surgical clips in the right colon. There is a midline fat containing supraumbilical hernia. There is a midline umbilical hernia containing a loop of small bowel. There is enhancement of the wall of the small bowel. The proximal small bowel appears mildly dilated. The remainder of the b owel is unremarkable. No evidence of an acute appendicitis is present. Peritoneal Cavity: There is a small amount of free fluid in the pelvis. Lymph Nodes: Within normal limits. Bones: Degenerative changes are present in the lumbar spine. There are again seen compression deformi ties of the L1 and L2 vertebral bodies which appears stable. Soft Tissues: Unremarkable. PELVIS: Bladder: Symmetric distention, no gross wall thickening. Reproductive Organs: Unremarkable as visualized. Lymph Nodes: Within normal limits. Bones: Old L1 and L2 compression deformities. IMPRESSION: 1. Umbilical hernia containing loops of small bowel. There is enhancement of the mucosa of the involv ed small bowel and dilatation of the proximal small bowel. Obstruction cannot be excluded. 2. Interval development of intra and extrahepatic biliary ductal dilatation. Ultrasound may be consid ered for further evaluation. RADIATION DOSE DELIVERED: Total DLP DATA REPOSITORY: All CT scans at this facility are submitted to the National Radiology Data Registry (NRDR) Dose Index Registry (DIR) with the [employer] ([employer]). RADIATION OPTIMIZATION: All CT scans at this facility use at least one of these dose optimization te chniques: automated exposure control; mA and/or kV adjustment per patient size (includes targeted exa ms where dose is matched to clinical indication); or iterative reconstruction.
[2020-04-16] MEDS: Normal Saline 250 ML 500 ML IV (07:15)
--- NOTE | 2020-04-16 07:15 | ED.GENADUL_ITS ---
Discharge Plan Disposition Patient Disposition: HOME Condition: Stable Discharge Details Chief Complaint: Abd Prob Clinical Impression: Ventral hernia, Abdominal pain, Nausea & vomiting Primary Care Provider: Tiana Romano ED Provider: Peyton Vega Home Meds and New Rx's Prescriptions: New ondansetron 4 mg tablet,disintegrating 4 mg PO TID PRN (Reason: nausea and vomiting) Qty: 6 RF: 0 Continued sucralfate [Carafate] 1 gram tablet 1 gm PO QACHS Qty: 120 RF: 1 clopidogrel [Plavix] 75 mg Tablet 75 mg PO DAILY Qty: 30 RF: 0 aspirin [Aspirin Low Dose] 81 mg Tablet,Delayed Release (Dr/Ec) 81 mg PO DAILY Qty: 30 RF: 0 ferrous sulfate 325 mg (65 mg iron) Tablet 325 mg PO TID Qty: 90 RF: 0 omeprazole 20 mg Capsule,Delayed Release(Dr/Ec) 20 mg PO DAILY Qty: 30 RF: 0 folic acid 1 mg Tablet 1 mg PO DAILY Qty: 30 RF: 0 metoprolol succinate 25 mg Tablet Extended Release 24 Hr 12.5 mg PO BID Qty: 30 RF: 0 ascorbic acid (vitamin C) 500 mg Capsule 500 mg PO TID Qty: 90 RF: 0 Discharge Instructions Instructions: Acute Nausea and Vomiting (ED), Abdominal Pain (ED) Additional Instructions: Drink plenty of fluids and get plenty of rest. Follow a clear liquid diet over the next few days and advance as tolerated to more solid foods. Avoid heavy lifting in general and especially over the next few days. Take Tylenol as needed and directed for pain. Take the Zofran as needed and directed for nausea and vomiting. Restart all of your medications today. You were given prescriptions for all of your regular medications. Call your primary care doctor tomorrow to schedule a follow-up appointment for reevaluation and for referral for outpatient echocardiogram. You were evaluated by the general surgeon here today and you can follow-up with her for reevaluation and to schedule an elective hernia repair in the future. Return immediately to the emergency department if you develop any worsening or new concerning symptoms such as fever, worsening vomiting or pain. Referrals: Latonia Friedman MD [ [facility] STAFF PHYSICIAN] - Discharge Data Discharge Physician: Peyton Vega Medical Decision Making <Jero Seaman MD - Last Filed: 04/16/20 07:19> 74 yo female with hx of aoritc stenosis s/p TAVR, gerd, prior ventral hernia repaired over a year ago, s/p cholcystetomy, s/p right hemicolectomy from prior colon CA in remission, who comes in with mid abdominal pain and feeling a lump along with n/v since yesterday. Denies chest pain or pressure, dyspnea, diarrhea. She states the pain is not bad if laying and not moving but when she moves the mid abdomen begins to hurt. She has a soft abdomen but is tender in the mid abdomen with what feels like a ventral hernia on exam though limited due to obese abdomen. Given her multiple prior surgeries concerned for sbo vs incarcerated/strangulated hernia. Will obtain lab work and CT and monitor pt signed out to oncoming provider pending imaging results, dispo. Differential Diagnosis Differential Diagnosis: sbo, pancreatitis, gastroenteritis, colitis, ventral hernia Medical Records Medical records reviewed: Yes I reviewed the patient's medical records. Lab Data Lab results reviewed: Yes I reviewed the patient's lab results. <Peyton Vega DO - Last Filed: 04/16/20 11:55> 0800 -- please see Dr. Seaman's note for initial presentation, exam, and plan. Case endorsed to f/u on results final disposition. Patient states she has not taken any of her meds for the last month care of her who has dementia at home and has not left the house due to coronavirus. 0900 -- Patient reassessed -she admits to return of pain and nausea. A dose of morphine and Zofran given. She had a local erythema and mild edema that developed around IV site after injection of morphine. A dose of 50 mg Benadryl given. She denied any respiratory symptoms and no additional rash noted. This resolved after Benadryl. Normal white blood cell count. Lactate 2. Urinalysis notes 10-20 WBCs with negative leukocyte esterase and bacteria. Urine culture sent. She has no urinary symptoms, fever or elevated white blood cell count, will hold on antibiotics at this time. CT notes large umbilical hernia with loops of small bowel, enhancing mucosa which may represent enteritis. Common bile duct prominent at 15 mm likely due to postcholecystectomy state as normal labs and do not suspect biliary obstruction. Also noted mild opacities right middle lobe which likely atelectasis as she has no complaint of cough, shortness of breath, with normal respiratory rate and oxygen saturation. Case and CT reviewed with Dr. Friedman -no evidence of bowel obstruction. She also evaluated patient at bedside. She feels that she is appropriate for discharge to home if tolerating p.o. and lactate normalizes. She recommends the patient follow-up with her PCP for repeat echo due to her history of TAVR and considering that she has not taken her aspirin and Plavix for the last month. Dr. Friedman stated that they can likely perform an elective hernia repair here after follow-up with PCP and echo. 1100 --Patient reassessed by myself and Dr. Friedman -she admits to improvement of pain and nausea and feels good to go home. She was able to tolerate dayo connie. Lactate normalized. Case discussed with son over the phone who stated that patient tends to do too much at home including lifting her who is 200 pounds. Son states that he will ensure that patient rest over the next few days and follow-up with her PCP for reevaluation and outpatient echo. She was given an abdominal binder. Usual and customary return precautions given prior to discharge. Medical Records Medical records reviewed: Yes I reviewed the patient's medical records. Imaging Data Radiologic Study: Radiologist's impression: CT Abdomen And Pelvis With Contrast Exam date and time: 04/16/2020 7:15 AM Age: 74 years old Clinical indication: Other: Mid abdominal pain and vomit; Prior surgery; Surgery date: 6+ months; Surgery type: Bowel resection due to colon CA , hernia repair, ; patient HX: HX colon CA TECHNIQUE: Imaging protocol: Computed tomography of the abdomen and pelvis with intravenous contrast. Radiation optimization: All CT scans at this facility use at least one of these dose optimization techniques: automated exposure control; mA and/or kV adjustment per patient size (includes targeted exams where dose is matched to clinical indication); or iterative reconstruction. Contrast material: OMNIPAQUE 350; Contrast volume: 100 ml; Contrast route: IV; COMPARISON: No relevant prior studies available. FINDINGS: Lungs: Mild opacities in the right middle lobe may represent atelectasis or pneumonia. Liver: Intra hepatic ductal dilatation The common duct is prominent. It measures 15 millimeters. This may be due to post cholecystectomy state and elderly status. However, if biliary obstruction is suspected clinically, recommend further evaluation. Gallbladder and bile ducts: See Liver finding. Pancreas: Normal. No ductal dilation. Spleen: Normal. No splenomegaly. Adrenals: Normal. No mass. Kidneys and ureters: 7 mm cyst in the posterior right kidney. No follow-up required Stomach and bowel: Surgical clips in the right colon Appendix: No evidence of appendicitis. Intraperitoneal space: Mild amount of free fluid in the pelvis Vasculature: Unremarkable. No abdominal aortic aneurysm. Lymph nodes: Unremarkable. No enlarged lymph nodes. Bladder: Unremarkable as visualized. Reproductive: Unremarkable as visualized. Bones/joints: Severe compression fractures of unknown age at L1 and L2 Soft tissues: Large umbilical hernia contains loops of small bowel. There is enhancing mucosa the of the loops of small bowel. This may represent enteritis including infectious and inflammatory etiologies. Other findings: Aortic valve replacement IMPRESSION: 1. Large umbilical hernia contains loops of small bowel. There is enhancing mucosa the of the loops of small bowel. This may represent enteritis including infectious and inflammatory etiologies. 2. Intra hepatic ductal dilatation The common duct is prominent. It measures 15 millimeters. This may be due to post cholecystectomy state and elderly status. However, if biliary obstruction is suspected clinically, recommend further evaluation. Lab Data Lab results reviewed: Yes I reviewed the patient's lab results. Labs: 04/16/20 07:35 Urine - Reflex from Ua Urine Culture - Pending Laboratory Tests Range/Units 04/16/20 04/16/20 04/16/20 07:15 07:15 07:15 WBC (4.4-10.8) k/cumm 6.46 RBC (4.00-5.20) m/cumm 4.41 Hgb (12.0-15.5) g/dL 13.7 Hct (36.0-46.0) % 41.2 MCV (80-95) fL 93.4 MCH (27.0-33.0) pg 31.1 MCHC (32.0-36.0) g/dL 33.3 RDW (11.7-14.6) % 14.9 H Plt Count (130-400) x1000/uL 207 MPV (8.0-11.0) fL 9.2 Immature Gran % % 0.6 Neutrophils % 84.7 Lymphocytes % 6.2 Monocytes % 7.7 Eosinophils % 0.6 Basophils % 0.2 Absolute Neutrophils (1.2-6.7) k/cumm 5.47 Absolute Lymphocytes (1.2-3.4) k/cumm 0.40 L Absolute Monocytes (0.11-0.7) k/cumm 0.50 Absolute Eosinophils (0.0-0.7) k/cumm 0.04 Absolute Basophils (0.0-0.2) k/cumm 0.01 PT (9.3-11.0) sec 9.9 INR (0.9-1.1) 1.0 APTT (21.0-31.4) sec 23.7 Sodium (136-145) mmol/L 135 L Potassium (3.5-5.1) mmol/L 4.2 Chloride (98-107) mmol/L 101 Carbon Dioxide (21.0-32.0) mmol/L 24.0 Anion Gap (3-11) mmol/L 10.0 BUN (7-18) mg/dL 24 H Creatinine (0.55-1.02) mg/dL 1.33 H Estimated GFR/1.73 m2 (mL/min/1.73m2) 39.11 Glucose (74-106) mg/dL 129 H Lactate (0.6-1.4) mmol/L Calcium (8.5-10.1) mg/dL 9.1 Magnesium (1.8-2.4) mg/dL 1.7 L Total Bilirubin (0.2-1.0) mg/dL 0.7 Conjugated Bilirubin (0.00-0.20) mg/dL 0.14 AST (15-37) U/L 20 ALT (14-59) U/L 21 Alkaline Phosphatase (46-116) U/L 108 Total Protein (6.4-8.2) g/dL 7.8 Albumin (3.4-5.0) g/dL 3.3 L Lipase (73-393) U/L 120 Urine Color (Yellow) Urine Clarity (Clear) Urine pH (5-8) Ur Specific [place] (1.005-1.025) Urine Protein (Negative) mg/dL Urine Ketones (Negative) mg/dL Urine Blood (Negative) Urine Nitrite (Negative) Urine Bilirubin (Negative) Urine Urobilinogen (Up TO 0.2) EU/dL Ur Leukocyte Esterase (Negative) Urine RBC (0-2) HPF Urine WBC (0-5) HPF Ur Epithelial Cells (Negative) HPF Urine Crystals (Negative) HPF Urine Bacteria (Negative) HPF Urine Casts (Negative) LPF Urine Mucus (Negative) Ur Culture Indicated? Urine Glucose (Negative) mg/dL Range/Units 04/16/20 04/16/20 04/16/20 07:15 07:35 10:45 WBC (4.4-10.8) k/cumm RBC (4.00-5.20) m/cumm Hgb (12.0-15.5) g/dL Hct (36.0-46.0) % MCV (80-95) fL MCH (27.0-33.0) pg MCHC (32.0-36.0) g/dL RDW (11.7-14.6) % Plt Count (130-400) x1000/uL MPV (8.0-11.0) fL Immature Gran % % Neutrophils % Lymphocytes % Monocytes % Eosinophils % Basophils % Absolute Neutrophils (1.2-6.7) k/cumm Absolute Lymphocytes (1.2-3.4) k/cumm Absolute Monocytes (0.11-0.7) k/cumm Absolute Eosinophils (0.0-0.7) k/cumm Absolute Basophils (0.0-0.2) k/cumm PT (9.3-11.0) sec INR (0.9-1.1) APTT (21.0-31.4) sec Sodium (136-145) mmol/L Potassium (3.5-5.1) mmol/L Chloride (98-107) mmol/L Carbon Dioxide (21.0-32.0) mmol/L Anion Gap (3-11) mmol/L BUN (7-18) mg/dL Creatinine (0.55-1.02) mg/dL Estimated GFR/1.73 m2 (mL/min/1.73m2) Glucose (74-106) mg/dL Lactate (0.6-1.4) mmol/L 2.0 H 0.9 Calcium (8.5-10.1) mg/dL Magnesium (1.8-2.4) mg/dL Total Bilirubin (0.2-1.0) mg/dL Conjugated Bilirubin (0.00-0.20) mg/dL AST (15-37) U/L ALT (14-59) U/L Alkaline Phosphatase (46-116) U/L Total Protein (6.4-8.2) g/dL Albumin (3.4-5.0) g/dL Lipase (73-393) U/L Urine Color (Yellow) Yellow Urine Clarity (Clear) Clear Urine pH (5-8) 5.5 Ur Specific [place] (1.005-1.025) >= 1.030 H Urine Protein (Negative) mg/dL Negative Urine Ketones (Negative) mg/dL Negative Urine Blood (Negative) Trace-lysed H Urine Nitrite (Negative) Negative Urine Bilirubin (Negative) Negative Urine Urobilinogen (Up TO 0.2) EU/dL 0.2 Ur Leukocyte Esterase (Negative) Negative Urine RBC (0-2) HPF 0-2 Urine WBC (0-5) HPF 10-20 H Ur Epithelial Cells (Negative) HPF Rare Urine Crystals (Negative) HPF Moderate amorphous Urine Bacteria (Negative) HPF Negative Urine Casts (Negative) LPF Negative Urine Mucus (Negative) Negative Ur Culture Indicated? Yes Urine Glucose (Negative) mg/dL Negative ECG Data Attestation: I personally reviewed and interpreted this ECG (s) as follows: Interpretation: EKG done as there appeared to be ST depression on the monitor. Patient had no complaint of chest pain or shortness of breath. EKG noted a rate of 72, sinus with left bundle branch block but no acute ST elevation or depression. No acute change from previous EKG. DC 190. QTc 510. QRS 155. HPI <Jero Seaman MD - Last Filed: 04/16/20 07:19> General Mode of arrival: ambulatory . Date/Time Provider Initiated Documentation: 04/16/20 06:53 . Limitations to Documentation: no limitations . Information obtained by: patient . History of Present Illness 74 year old F presents to the emergency department with the chief complaint of abdominal pain, described as moderate, Quality is described as stabbing, and is localized to the abdomen. Patient reports no radiation. Patient started experiencing this day(s) (1) and it has been intermittent. Movement worsens symptoms . Patient notes nausea/vomiting. Patient did receive the following treatments prior to arrival, none Related Data Home Medications Medication Instructions Recorded Confirmed ascorbic acid (vitamin C) 500 mg PO TID #90 cap 04/16/20 aspirin [Aspirin Low Dose] 81 mg PO DAILY #30 tab 04/16/20 clopidogrel [Plavix] 75 mg PO DAILY #30 tab 04/16/20 ferrous sulfate 325 mg PO TID #90 tab 04/16/20 folic acid 1 mg PO DAILY #30 tab 04/16/20 metoprolol succinate 12.5 mg PO BID #30 tab 04/16/20 omeprazole 20 mg PO DAILY #30 cap 04/16/20 ondansetron 4 mg PO TID PRN #6 tab 04/16/20 sucralfate [Carafate] 1 gm PO QACHS #120 tab 04/16/20 Previous Rx's Medication Instructions Recorded ascorbic acid (vitamin C) 500 mg PO TID #90 cap 04/16/20 aspirin [Aspirin Low Dose] 81 mg PO DAILY #30 tab 04/16/20 clopidogrel [Plavix] 75 mg PO DAILY #30 tab 04/16/20 ferrous sulfate 325 mg PO TID #90 tab 04/16/20 folic acid 1 mg PO DAILY #30 tab 04/16/20 metoprolol succinate 12.5 mg PO BID #30 tab 04/16/20 omeprazole 20 mg PO DAILY #30 cap 04/16/20 ondansetron 4 mg PO TID PRN #6 tab 04/16/20 sucralfate [Carafate] 1 gm PO QACHS #120 tab 04/16/20 Allergies Allergy/AdvReac Type Severity Reaction Status Date / Time morphine Allergy Intermediate Hives Unverified 04/16/20 09:32 General Stated Complaint: Abd Prob JEANIE: 3 Review of Systems <Jero Seaman MD - Last Filed: 04/16/20 07:19> All systems reviewed & are unremarkable except as noted in HPI and below Constitutional Constitutional: Denies chills and Denies fever(s) Cardiovascular Cardiovascular: Denies chest pain and Denies dyspnea Respiratory Respiratory: Denies cough and Denies dyspnea Genitourinary Genitourinary: Denies dysuria Integumentary/Breasts Skin/Breast: Denies rash PFS <Jero Seaman MD - Last Filed: 04/16/20 07:19> Medical History (Updated 04/16/20 @ 10:37 by Latonia Friedman MD) Acute CHF (Inactive) Adenocarcinoma of right breast (Inactive) s/p Lumpectomy Advance directive on file (Inactive) Anemia (Inactive) Aortic stenosis, severe (Chronic) Cancer of ascending colon metastatic to intra-abdominal lymph node (Inactive) S/p Right hemicolectomy Factitious hyperthyroidism (Inactive) GERD (gastroesophageal reflux disease) (Inactive) H/O malignant neoplasm of breast (Resolved) H/O malignant neoplasm of colon (Resolved) Hypertension (Chronic) Hypertension (Inactive) Hypomagnesemia (Inactive) Normocytic anemia (Inactive) Severe aortic stenosis (Resolved) s/p TAVR UTI (urinary tract infection) (Inactive) Surgical History H/O cardiac catheterization (Chronic) H/O colonoscopy (Chronic) H/O heart valve replacement with porcine valve (Acute) History of esophagogastroduodenoscopy (EGD) (Chronic) History of ventral hernia repair (Acute) [place] [facility] [place]ole[place] (Chronic) S/P right hemicolectomy (Chronic) Status post closure of ileostomy (Chronic) Status post right breast lumpectomy (Chronic) Social History Smoking/Tobacco Use Status: Former Tobacco Use Pack-years: 141 Tobacco: How many years used: 47 Alcohol Intake: current Alcohol Intake frequency: a few times a month Drug use: Never Substance use type: does not use Do you feel safe at home: Yes Do you feel safe in your relationship?: Yes Exam <Jero Seaman MD - Last Filed: 04/16/20 07:19> Const General: no acute distress Orientation: alert [facility] Head: normal to inspection Ears: external ears normal General nose exam: external nose normal Mouth: moist mucous membranes Eyes General: appearance normal, both eyes and all related structures Neck Neck: normal visual inspection Resp Effort & Inspection: normal respiratory effort and able to speak in complete sentences Cardio Rate: regular rate GI Palpation: soft Skin General skin exam: no rashes or lesions noted Neuro General: patient alert and patient oriented x3 Extrem General: normal to inspection Psych Mental Status: mental status grossly normal Course <Jero Seaman MD - Last Filed: 04/16/20 07:19> Vital Signs Vital signs: Vital Signs Temperature 36.6 C 04/16/20 07:07 Pulse 86 04/16/20 07:07 Respiratory Rate 16 04/16/20 07:07 Blood Pressure 149/80 H 04/16/20 07:07 Pulse Oximetry 98 04/16/20 07:07 Temperature 36.6 C 04/16/20 07:07 Temperature Source Skin 04/16/20 07:07 Pulse 86 04/16/20 07:07 Respiratory Rate 16 04/16/20 07:07 Respiratory Effort Non-Labored 04/16/20 07:07 Blood Pressure 149/80 H 04/16/20 07:07 Blood Pressure Position Supine 04/16/20 07:07 Pulse Oximetry 98 04/16/20 07:07 Oxygen Delivery Method Room Air 04/16/20 07:07 Oxygen Flow Rate 0 04/16/20 07:07 Pain Level 5 04/16/20 07:07 Sign Out <Jero Seaman MD - Last Filed: 04/16/20 07:19> Sign Out Data: Sign Out Comment: f/u imaging and lab results Last updated by Jero Seaman MD at 04/16/20 07:20
[2020-04-16] MEDS: Ondansetron 4 MG/2 ML VIAL IVP ×2 (07:20→09:12)
[2020-04-16] MEDS: fentaNYL 100 MCG/2 ML VIAL 75 MCG IVP (07:23)
[2020-04-16 07:27] LABS: Abs Immature Grans 0.04 k/cumm (0.0-0.09); Absolute Basophil Count 0.01 k/cumm (0.0-0.2); Absolute Eosinophil Count 0.04 k/cumm (0.0-0.7); Absolute Neutrophil Count 5.47 k/cumm (1.2-6.7); Basophils % 0.2; Eosinophils % 0.6; HCT 41.2 % (36.0-46.0); HGB 13.7 g/dL (12.0-15.5); Immature Grans % 0.6 %; Lymphocytes % 6.2; Mean Corp. HGB Concentration 33.3 g/dL (32.0-36.0); Mean Corpuscular Hemoglobin 31.1 pg (27.0-33.0); Mean Corpuscular Volume 93.4 fL (80-95); Mean Platelet Volume 9.2 fL (8.0-11.0); Monocytes % 7.7; Neutrophils % 84.7; Platelet Count 207 x1000/uL (130-400); RBC 4.41 m/cumm (4.00-5.20); RBC Distribution Width 14.9 % (11.7-14.6); White Blood Cell Count 6.46 k/cumm (4.4-10.8)
[2020-04-16] MEDS: Normal Saline Flush 10 ML SYR IVP (07:28)
[2020-04-16 07:39] LABS: ALT 21 U/L (14-59); AST 20 U/L (15-37); Albumin 3.3 g/dL (3.4-5.0); Alkaline Phosphatase 108 U/L (46-116); BUN 24 mg/dL (7-18); Bilirubin, Direct 0.14 mg/dL (0.00-0.20); Bilirubin, Total 0.7 mg/dL (0.2-1.0); CREATININE 1.33 mg/dL (0.55-1.02); Calcium 9.1 mg/dL (8.5-10.1); Chloride 101 mmol/L (98-107); Estimated GFR 39.11 (mL/min/1.73m2); Glucose 129 mg/dL (74-106); Lipase 120 U/L (73-393); Magnesium 1.7 mg/dL (1.8-2.4); Potassium 4.2 mmol/L (3.5-5.1); Sodium 135 mmol/L (136-145); Total Protein 7.8 g/dL (6.4-8.2)
[2020-04-16 07:42] LABS: Bilirubin Negative (Negative); Blood Trace-lysed (Negative); Clarity Clear (Clear); Glucose Negative (Negative); Ketones Negative (Negative); Leukocyte Esterase Negative (Negative); Nitrite Negative (Negative); Specific Gravity >= 1.030 (1.005-1.025); Urobilinogen 0.2 EU/dL (Up TO 0.2); pH 5.5 (5-8)
[2020-04-16 07:50] LABS: PTT Activated 23.7 sec (21.0-31.4); Prothrombin Time 9.9 sec (9.3-11.0)
[2020-04-16 07:55] LABS: Bacteria Negative HPF (Negative); C & S Indicated? Yes; Casts Negative LPF (Negative); Crystals Moderate Amorphous HPF (Negative); Epithelial Cells Rare HPF (Negative); Mucus Negative (Negative); RBC 0-2 HPF (0-2)
[2020-04-16] MEDS: Omnipaque 350 MG/ML 100 ML BTL IV (08:40)
[2020-04-16] MEDS: Normal Saline - Diluent 50 ML VIAL IV (08:41)
--- NOTE | 2020-04-16 08:50 | DI.VRAD_ITS ---
PROCEDURE INFORMATION: Exam: CT Abdomen And Pelvis With Contrast Exam date and time: 04/16/2020 7:15 AM Age: 74 years old Clinical indication: Other: Mid abdominal pain and vomit; Prior surgery; Surgery date: 6+ months; Surgery type: Bowel resection due to colon CA , hernia repair, ; patient HX: HX colon CA TECHNIQUE: Imaging protocol: Computed tomography of the abdomen and pelvis with intravenous contrast. Radiation optimization: All CT scans at this facility use at least one of these dose optimization techniques: automated exposure control; mA and/or kV adjustment per patient size (includes targeted exams where dose is matched to clinical indication); or iterative reconstruction. Contrast material: OMNIPAQUE 350; Contrast volume: 100 ml; Contrast route: IV; COMPARISON: No relevant prior studies available. FINDINGS: Lungs: Mild opacities in the right middle lobe may represent atelectasis or pneumonia. Liver: Intra hepatic ductal dilatation The common duct is prominent. It measures 15 millimeters. This may be due to post cholecystectomy state and elderly status. However, if biliary obstruction is suspected clinically, recommend further evaluation. Gallbladder and bile ducts: See Liver finding. Pancreas: Normal. No ductal dilation. Spleen: Normal. No splenomegaly. Adrenals: Normal. No mass. Kidneys and ureters: 7 mm cyst in the posterior right kidney. No follow-up required Stomach and bowel: Surgical clips in the right colon Appendix: No evidence of appendicitis. Intraperitoneal space: Mild amount of free fluid in the pelvis Vasculature: Unremarkable. No abdominal aortic aneurysm. Lymph nodes: Unremarkable. No enlarged lymph nodes. Bladder: Unremarkable as visualized. Reproductive: Unremarkable as visualized. Bones/joints: Severe compression fractures of unknown age at L1 and L2 Soft tissues: Large umbilical hernia contains loops of small bowel. There is enhancing mucosa the of the loops of small bowel. This may represent enteritis including infectious and inflammatory etiologies. Other findings: Aortic valve replacement IMPRESSION: 1. Large umbilical hernia contains loops of small bowel. There is enhancing mucosa the of the loops of small bowel. This may represent enteritis including infectious and inflammatory etiologies. 2. Intra hepatic ductal dilatation The common duct is prominent. It measures 15 millimeters. This may be due to post cholecystectomy state and elderly status. However, if biliary obstruction is suspected clinically, recommend further evaluation. Dictated and Authenticated by: Flavia Rubin MD. Ordering:MICKEY Nogueira MD
[2020-04-16] MEDS: Normal Saline 500 ML IV (09:24)
[2020-04-16] MEDS: diphenhydrAMINE 50 MG/ML VIAL (09:25)
--- NOTE | 2020-04-16 10:20 | SCONE_ITS ---
Date of service: 04/16/20 Time of Service: 10:21 Assessment and Plan Assessment and plan (1) Recurrent ventral hernia: Status: Acute Assessment and plan: A\\ 74 year old female s/p primary repair of ventral hernia in 2018 and TAVR in July of 2019 who comes in to the ER today with abdominal pain and Nausea. CT scan showed recurrence of her ventral hernia. On physical exam and US examination there is no incarceration of bowel at this time. Abdominal pain is localized to the hernia defect. Patients hx complicated by chest pain 4 weeks ago and the fact that she has not been taking her Plavix for at least 1 months. Last ECHO in August was OK. No need for emergent repair at this time P\\ Repeat Lactate- if normal then will see if patient can tolerate some clear liquids. If able to tolerate liquids then can be discharged home on clear liquids for 24 hours then may advance diet. Recommend follow up with PCP and repeat ECHO. Possible follow up with Cardiology If ECHO is OK and Cardiology clears for surgery then we can see her in the office to plan elective repair with mesh Case discussed with Dr. Vega History of Present Illness History of Present Illness Chief Complaint: Abdominal pain, N/V Narrative: 74 yo female with hx of aoritc stenosis s/p TAVR, gerd, prior ventral hernia repaired over a year ago, s/p cholecystetomy, s/p right hemicolectomy from prior colon CA in remission, who comes in with mid abdominal pain and feeling a lump along with n/v since yesterday. Denies chest pain or pressure, dyspnea, diarrhea. She states the pain is not bad if laying and not moving but when she moves the mid abdomen begins to hurt. CT scan reviewed. There is a recurrence of her ventral hernia. [facility] [place]. She had a primary repair done July of 2019 for incarcerated hernia. She was then admitted to [facility] 3 days after discharge from [facility] for abdominal pain. CT scan at that time showed some inflammation which was consistent with post-surgical changes. She was admitted overnight and discharged the next day. Patient tells me that she has had intermittent pain again for the last few months just to the left of midline. Sometimes she will feel a hard bulge and then it goes away and she feels better. She is currently having Flatus and had a normal BM yesterday. Lactate was slightly elevated on admission but patient states she hadn't been drinking much due to pain. Patient has not been taking her Plavix x1 months at least because she ran out. Patient has not seen Cardiology since August of last year. Had an ECHO done in August which showed an EF of 55% and normal systolic function. Prosthetic valve looked good. No stenosis. Patient tells me that the last time she had chest pain was 4 weeks ago. She did not come to the ER and she did not let her PCP know about it either. She has no Nitro at home. She is still taking her aspirin daily. Consults Consult date: 04/16/20 Requesting physician: Peyton Vega Review of Systems Constitutional Constitutional: Denies fever(s), Denies headache(s), Reports poor appetite and Denies weakness Eyes Eyes: Denies change in vision ENT Ears, Nose, Mouth, and Throat: Denies headache(s) and Denies hoarseness Cardiovascular Cardiovascular: Reports chest pain (4 weeks ago, no chest pain today), Denies irregular heart rhythm, Denies palpitations and Denies dyspnea Respiratory Respiratory: Denies cough and Denies dyspnea Gastrointestinal Gastrointestinal: Reports as per HPI Genitourinary Genitourinary: Reports system reviewed and no additional complaints, except as documented Musculoskeletal Musculoskeletal: Reports system reviewed and no additional complaints, except as documented Integumentary/Breasts Skin/Breast: Reports system reviewed and no additional complaints, except as documented Neurologic Neurologic: Reports system reviewed and no additional complaints, except as documented, Denies headache(s) and Denies weakness Psychiatric Psychiatric: Reports system reviewed and no additional complaints, except as documented Endocrine Endocrine: Reports system reviewed and no additional complaints, except as documented and Denies palpitations [facility] Social History Smoking/Tobacco Use Status: Former Tobacco Use Pack-years: 141 Tobacco: How many years used: 47 Alcohol Intake: current Alcohol Intake frequency: a few times a month Drug use: Never Substance use type: does not use Do you feel safe at home: Yes Do you feel safe in your relationship?: Yes Exam Const General: cooperative, comfortable and no acute distress Orientation: alert, awake and oriented x3 HENMT Head: normocephalic and atraumatic Resp Effort & Inspection: normal respiratory effort Auscultation: clear to auscultation bilaterally Cardio Rate: regular rate Rhythm: regular rhythm Heart Sounds: no gallops, no murmurs and no rubs GI Inspection: incision (well healed midline incision) and no visible herniation Palpation: soft, no hepatosplenomegaly and tender (mild tenderness on deep palpationj of hernia defect) Auscultation: normal bowel sounds Other: Approximate 4 cm defect palpated just to the left and slightly superior to the umbilicus. NO bowel noted within the defect. Dedicated US done. Small bowel noted under the defect. There is normal peristalsis noted. With coughing the small bowel comes up into the defect and then reduces again. Results Last Vital Signs Temp 97.9 F 04/16/20 07:07 Pulse 77 04/16/20 09:46 Resp 13 04/16/20 09:50 BP 135/55 L 04/16/20 09:46 Pulse Ox 95 04/16/20 09:50 Labs Result diagrams: 04/16/20 07:15 04/16/20 07:15 Labs: Laboratory Results - last 24 hr 04/16/20 04/16/20 04/16/20 07:15 07:15 07:15 WBC 6.46 RBC 4.41 Hgb 13.7 Hct 41.2 MCV 93.4 MCH 31.1 MCHC 33.3 RDW 14.9 H Plt Count 207 MPV 9.2 Immature Gran % 0.6 Neutrophils % 84.7 Lymphocytes % 6.2 Monocytes % 7.7 Eosinophils % 0.6 Basophils % 0.2 Absolute Neutrophils 5.47 Absolute Lymphocytes 0.40 L Absolute Monocytes 0.50 Absolute Eosinophils 0.04 Absolute Basophils 0.01 PT 9.9 INR 1.0 APTT 23.7 Sodium 135 L Potassium 4.2 Chloride 101 Carbon Dioxide 24.0 Anion Gap 10.0 BUN 24 H Creatinine 1.33 H Estimated GFR/1.73 m2 39.11 Glucose 129 H Lactate Calcium 9.1 Magnesium 1.7 L Total Bilirubin 0.7 Conjugated Bilirubin 0.14 AST 20 ALT 21 Alkaline Phosphatase 108 Total Protein 7.8 Albumin 3.3 L Lipase 120 Urine Color Urine Clarity Urine pH Ur Specific [place] Urine Protein Urine Ketones Urine Blood Urine Nitrite Urine Bilirubin Urine Urobilinogen Ur Leukocyte Esterase Urine RBC Urine WBC Ur Epithelial Cells Urine Crystals Urine Bacteria Urine Casts Urine Mucus Ur Culture Indicated? Urine Glucose 04/16/20 04/16/20 07:15 07:35 WBC RBC Hgb Hct MCV MCH MCHC RDW Plt Count MPV Immature Gran % Neutrophils % Lymphocytes % Monocytes % Eosinophils % Basophils % Absolute Neutrophils Absolute Lymphocytes Absolute Monocytes Absolute Eosinophils Absolute Basophils PT INR APTT Sodium Potassium Chloride Carbon Dioxide Anion Gap BUN Creatinine Estimated GFR/1.73 m2 Glucose Lactate 2.0 H Calcium Magnesium Total Bilirubin Conjugated Bilirubin AST ALT Alkaline Phosphatase Total Protein Albumin Lipase Urine Color Yellow Urine Clarity Clear Urine pH 5.5 Ur Specific [place] >= 1.030 H Urine Protein Negative Urine Ketones Negative Urine Blood Trace-lysed H Urine Nitrite Negative Urine Bilirubin Negative Urine Urobilinogen 0.2 Ur Leukocyte Esterase Negative Urine RBC 0-2 Urine WBC 10-20 H Ur Epithelial Cells Rare Urine Crystals Moderate amorphous Urine Bacteria Negative Urine Casts Negative Urine Mucus Negative Ur Culture Indicated? Yes Urine Glucose Negative
[2020-04-16 10:48] LABS: Lactate 0.9 mmol/L (0.6-1.4)
--- NOTE | 2020-04-16 12:19 | NUR.NOTE ---
abdominal binder applied before discharge. tolerates well.Nursing Note:
== END 2020-04-16 11:45 | disposition home or self-care (01) ==
PROVIDERS: Emergency Medicine; Emergency Provider Physician Assistant; PCP Nurse Practitioner Family
DX: K42.9 Umbilical hernia without obstruction or gangrene (principal); R10.33 Periumbilical pain; R11.2 Nausea with vomiting, unspecified; I10 Essential (primary) hypertension
CPT/HCPCS: 36415; 80053; 83690; 87077; 93005; 96361; 96374; 96375; 96376; 99253; 99285; 74177; 81003; 81015; 82248; 83605; 83735; 85025; 85610; 85730; 87086; 87186; 93010; J1200; J2405; J3010; J3490

== ENCOUNTER 2020-04-26 01:11 | Outpatient (CLI) | payer MEDICARE, SELFPAY ==
--- NOTE | 2020-04-27 | DI.MAMMO_ITS ---
EXAM: MG MAMMO SCREEN CALL BACK UNI LEFT CLINICAL HISTORY: F/U ABNL MAMMO, R92.8,ASYMMETRIC BREAST DENSITY, R92.2 TECHNIQUE: Cc spot compression view with tomography was performed of the left breast. COMPARISON: 2016 through 2018. FINDINGS: The CC spot compression view with tomography was performed of the lateral aspect of the left breast f or a question of a small area of nodular asymmetry in the lateral aspect of the left breast. No pers istent abnormality is seen. The findings are consistent with overlying tissue. There has been no ch ruddy from previous examinations. IMPRESSION: BI-RADS category 1, yearly screening mammography is recommended. Breast density category B, scattered fibroglandular densities.
== END 2020-04-26 01:31 ==
PROVIDERS: PCP Nurse Practitioner Family; Visit Provider Radiology Radiation Oncology
DX: Z12.31 Encounter for screening mammogram for malignant neoplasm of breast (principal); R92.8 Other abnormal and inconclusive findings on diagnostic imaging of breast; N64.59 Other signs and symptoms in breast

== ENCOUNTER 2020-04-27 02:40 | Outpatient (CLI) | payer MEDICARE, SELFPAY | END 2020-04-27 03:00 | PROVIDERS: PCP Nurse Practitioner Family; Visit Provider Radiology Radiation Oncology | DX: Z12.31 Encounter for screening mammogram for malignant neoplasm of breast (principal); R92.8 Other abnormal and inconclusive findings on diagnostic imaging of breast; N64.59 Other signs and symptoms in breast | CPT/HCPCS: 77063; 77067 ==

== ENCOUNTER → 2020-05-04 08:48 | Outpatient (BNVA) | payer MEDICARE, SELFPAY | PROVIDERS: PCP Nurse Practitioner Family; Referring Provider Nurse Practitioner Family; Visit Provider Internal Medicine Cardiovascular Disease | DX: R00.2 Palpitations (principal); Z95.3 Presence of xenogenic heart valve; I10 Essential (primary) hypertension | CPT/HCPCS: 99203; 99214 ==

== ENCOUNTER 2020-05-08 02:17 | Outpatient (CLI) | payer MEDICARE, SELFPAY ==
--- NOTE | 2020-05-08 10:15 | DI.US_ITS ---
APPROVED REPORT EXAM: Comprehensive 2D, Doppler, and color-flow Echocardiogram Patient Location: Out-Patient Applications Support Lead: Tyesha Orona RDCS (AE) Indications: AVR Bioprosthetic, TAVR Other Information Study Quality: Fair Conclusion Left Ventricle : Left ventricle is borderline dilated. Left ventricular systolic function is borderli ne. There is normal left ventricular wall thickness. Regional wall motion is grossly normal. LVEF is 48%. Right Ventricle : The right ventricle is normal size. The right ventricular systolic function is norm al. Atria : The left atrium size is normal. The right atrium size is normal. Aortic Valve : Bioprosthetic aortic valve is present (Garg 26mm). No hemodynamically significant v alvular aortic stenosis. Mean gradient is 9.6 mmHg. Trace aortic regurgitation. Great Vessels : IVC is normal in size and collapses >50% with inspiration. Please see remainder of study for additional details. When compared to echocardiogram dated 08/13/2019 at [facility], there is no significant riggins e. Wall motion Left Ventricle Left ventricle is borderline dilated. Left ventricular systolic function is borderline. There is norm al left ventricular wall thickness. Regional wall motion is grossly normal. There is no ventricular s eptal defect visualized. LVEF is 48%. Right Ventricle The right ventricle is normal size. The right ventricular systolic function is normal. Atria The left atrium size is normal. The right atrium size is normal. The interatrial septum is intact wit h no evidence for an atrial septal defect. Aortic Valve Bioprosthetic aortic valve is present (Garg 26mm). No hemodynamically significant valvular aortic stenosis. Mean gradient is 9.6 mmHg. Trace aortic regurgitation. Mitral Valve There is mitral annular calcification. No evidence of mitral valve stenosis. Mild mitral regurgitatio n. Tricuspid Valve The tricuspid valve is normal in structure. There is no tricuspid valve stenosis. Trace tricuspid reg urgitation. Unable to assess PA pressure. Pulmonic Valve Pulmonic valve is not well visualized. There is no pulmonic valvular stenosis. Trace pulmonic regurgi tation. Great Vessels The aortic root is normal in size. Aortic arch is not well visualized. Ascending aorta is not well vi sualized. IVC is normal in size and collapses >50% with inspiration. Pericardium There is no pericardial effusion. 2D Dimensions IVSD d PLAX 0.82 cm F: 0.6-1.0 LV Vol A2C d MOD 90.8 mL LVPW d PLAX 0.91 cm F: 0.6 - 1.0 LV Vol A4C d MOD 105.0 mL LVID d PLAX 5.22 cm F: 3.8 - 5.2 LA vol/ BSA A2C s A-L 19.6 mL/m2 LVDs 3.85 cm F: 2.2 - 3.5 LA vol/ BSA A4C s A-L 17.4 mL/m2 Ao Root d 1.93 cm F: 2.7 - 3.3 LA Vol/ BSA Biplane s A-L 18.6 mL/m2 RA Area A4C 14.70 cm2 LA Area A4C s MOD 12.95 cm2 RA Vol/ BSA A4C s A-L 23.3 mL/m2 LA Area A2C s MOD 13.80 cm2 LV EF Teichholz 51.0 % LV EF A4C MOD 49.2 % LVEF (Root's) 47.97 % F: 54 - 74 LV EF A2C MOD 48.7 % LV Volume 77.87 mL F: 46 - 106 LV EF Biplane MOD 48.0 % LV Volume Index 46.35 mL/m2 F: 29 - 61 SV 46.87 mL LV Vol Biplane MOD 97.7 mL SV Index 27.83 mL/m2 FS 26.15 % LV Diastology E/A Ratio 0.6 MV E Vmax 0.66 (0.4-1.3 m/s) MV A Vmax 1.15 (0.4-1.3 m/s) MV E/A Ratio 0.57 Aortic Valve LVOT Area 2.73 cm2 AoV Area Vmax 1.78 cm2 LVOT Vmax 1.45 m/s AoV Area/ BSA (Vmax) 1.06 cm2/m2 LVOT Mean Nikolas. 1.03 m/s CHAPITO Mean Nikolas. 1.97 cm2 LVOT Peak Grad 8.4 mmHg CHAPITO Mean Nikolas. Index 1.17 cm2/m2 LVOT Mean Grad 4.7 mmHg AR DT 5650 msec LVOT VTI 0.282 m AR PHT 1639 msec LVOT Diam s 1.85 cm AoV Vmax 2.23 m/s Velocity Ratio 0.65 AoV Mean Nikolas. 1.43 m/s AoV Peak Grad 19.9 mmHg LVOT SV 77.08 mL AoV Mean Grad 9.6 mmHg AoV VTI 0.421 m AoV Area VTI 1.83 cm2 AoV Area/ BSA (VTI) 1.09 cm/m2 Mitral Valve MV DT 184 (160-240 msec) MR PISA Radius 0.39 cm MV PHT 53 msec MR Aliasing Velocity 0.35 m/s MV Area PHT 4.13 cm2 MR PISA 0.95 cm2 MV VTI 1.421 m MV Area VTI 0.54 (4.0-6.0 cm2) Pulmonary Valve PV Vmax 0.96 (0.5-1.5 m/s) RVOT Peak Gr. 3.04 mmHg PV Peak Grad 3.7 mmHg RVOT Mean Gr. 1.60 mmHg PV Mean Grad 2.2 mmHg RVOT VTI 0.170 m PV VTI 0.186 m RVOT Vmax 0.87 m/s
== END 2020-05-08 02:37 ==
PROVIDERS: PCP Nurse Practitioner Family; Visit Provider Nurse Practitioner Family
DX: R00.2 Palpitations (principal); I10 Essential (primary) hypertension; Z95.3 Presence of xenogenic heart valve
CPT/HCPCS: 93306

== ENCOUNTER 2020-07-07 03:38 | Outpatient (CLI) | payer MEDICARE, SELFPAY ==
--- NOTE | 2020-07-07 | DI.MAMMO_ITS ---
EXAM: MG MAMMO SCREENING 60 MIN DUR CLINICAL HISTORY: PERSONAL H/O BREAST CA,C50.411,S/P TREATMENT,DUE FOR YEARLY TECHNIQUE: Mammograms were interpreted according to the usual protocol including computer analysis w [employer] CAD system, tomosynthesis and C-view imaging. COMPARISON: FINDINGS: Note is made of a previous right lumpectomy for breast carcinoma. No new mass or clumped microcalcif ication identified in either breast. Current examination is compared with previous examinations incl uding May 2019 and there has been no gross interval change in appearance in comparison with prior st udies. IMPRESSION: No specific evidence of malignancy at this time. Routine screening examinations are suggested at yea rly intervals due to the history of breast carcinoma. BI-RADS Cat 1 - Negative: Breast Density - Category B - Scattered areas of fibroglandular density:
== END 2020-07-07 03:58 ==
PROVIDERS: PCP Nurse Practitioner Family; Visit Provider Radiology Radiation Oncology
DX: Z12.31 Encounter for screening mammogram for malignant neoplasm of breast (principal); C50.411 Malignant neoplasm of upper-outer quadrant of right female breast
CPT/HCPCS: 77063; 77067

== ENCOUNTER 2020-08-18 14:32 | Inpatient (IN) | payer MEDICARE, SELFPAY ==
[2020-08-18] VITALS (49 sets, daily range): BP systolic 104–176; BP diastolic 48–100; PULSE 75–112; RESP 12–31; TEMP 36.5–37.2; O2SAT 93–98
--- NOTE | 2020-08-18 15:11 | NUR.NOTE ---
pt states she does not have money to buy other meds Nursing Note:
--- NOTE | 2020-08-18 15:18 | W.ED.GENAD ---
Discharge Plan Disposition Patient Disposition: [facility] INPATIENT Condition: Stable Discharge Details Clinical Impression: Incarcerated umbilical hernia Attending Provider: Stacie Delaney Primary Care Provider: Tiana Romano ED Provider: Emelia Langley Medical Decision Making <Cj Laurent MD - Last Filed: 08/18/20 15:52> 75-year-old female with a history of ventral hernia repair presents with onset of increased bloating, distention, midline pain associated with nausea at home. She has not had a fever or emesis. She arrives slightly hypertensive and with what is a large ventral hernia on exam that I am able to partially reduce. Differential diagnosis includes persistent hernia, incarceration, bowel compromise, must exclude other underlying abdominal process. IV placed, fluids initiated, patient given antiemetic. She is referred for laboratory testing and CT of the abdomen. Additionally, patient stated she was having difficulty paying for her medications and will ask care management to consult. Will sign out to Ms. Mini Langley at change of shift pending patient's diagnostic studies. Please see her note regarding final impression and disposition. <Emelia Langley - Last Filed: 08/18/20 20:26> Care assumed by outgoing provider Dr. Cj Laurent MD pending CT result. Please see his initial HPI and physical exam. At this time case management is here at bedside to speak with patient. 1630: Informed by wait staff that patient is having episode of emesis having trouble drinking oral contrast for CT. Patient is GFR is 29.[address] was changed to oral only contrast. Phenergan 12.5 mg IV ordered. 175: Spoke with Dr. Del Real with V rad regarding CT result. 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 Relatively large umbilical hernia containing loops of small bowel which appears dilated up to 3.6 cm there is prominent adjacent stranding which extends into the abdomen. This is suggestive of strangulated small bowel. There is also a smaller ventral hernia which is new from previous CT. There is an impression that says that there is no evidence of strangulated bowel radiologist states this is a typo and will make an addendum. 1750: General surgery paged.Spoke with Dr. Delaney who will call me back after viewing CT. 1810: Spoke with Dr. Delaney who agrees to accept patient and will speak with anesthesia. 0: Dr. Delaney here at bedside for patient evaluation and plan to take to the operating room. She recommends starting Zosyn IV antibiotic prior to arriving in the OR. Med orders in place. This text was generated using [employer] system, please disregard any oddities of phrase or misspellings. HPI <Cj Laurent MD - Last Filed: 08/18/20 15:52> General Mode of arrival: ambulatory. Date/Time Provider Initiated Documentation: 08/18/20 14:49. Limitations to Documentation: no limitations. Information obtained by: patient. History of Present Illness 75 year old F presents to the emergency department with the chief complaint of History of ventral hernia, abdominal bloating and discomfort, described as moderate, Quality is described as dull, and is localized to the abdomen. Patient reports no radiation. Patient started experiencing this hour(s) and it has been constant. No relieving factors improve symptom(s), No exacerbating factors reported . Patient notes other (Nauseated but no emesis); denies fever/chills. Patient did receive the following treatments prior to arrival, none Related Data Home Medications Medication Instructions Recorded Confirmed ascorbic acid (vitamin C) 500 mg PO TID #90 cap 04/16/20 05/04/20 aspirin [Aspirin Low Dose] 81 mg PO DAILY #30 tab 04/16/20 08/18/20 ferrous sulfate 325 mg PO TID #90 tab 04/16/20 05/04/20 folic acid 1 mg PO DAILY #30 tab 04/16/20 05/04/20 metoprolol succinate 12.5 mg PO BID #30 tab 04/16/20 08/18/20 ondansetron 4 mg PO TID PRN #6 tab 04/16/20 05/04/20 sucralfate [Carafate] 1 gm PO QACHS #120 tab 04/16/20 05/04/20 omeprazole 20 mg PO PRN PRN 08/18/20 08/18/20 Previous Rx's Medication Instructions Recorded ascorbic acid (vitamin C) 500 mg PO TID #90 cap 04/16/20 aspirin [Aspirin Low Dose] 81 mg PO DAILY #30 tab 04/16/20 ferrous sulfate 325 mg PO TID #90 tab 04/16/20 folic acid 1 mg PO DAILY #30 tab 04/16/20 metoprolol succinate 12.5 mg PO BID #30 tab 04/16/20 ondansetron 4 mg PO TID PRN #6 tab 04/16/20 sucralfate [Carafate] 1 gm PO QACHS #120 tab 04/16/20 Allergies Allergy/AdvReac Type Severity Reaction Status Date / Time morphine Allergy Intermediate Hives Unverified 08/18/20 14:49 General Stated Complaint: Abd Prob JEANIE: 3 Review of Systems <Cj Laurent MD - Last Filed: 08/18/20 15:52> Narrative: Denies recent illness. No emesis. No fever at home. 8 systems reviewed and otherwise negative PFSH <Cj Laurent MD - Last Filed: 08/18/20 15:52> Medical History (Updated 08/18/20 @ 18:12 by Emelia Langley) Acute CHF Adenocarcinoma of right breast s/p Lumpectomy Advance directive on file Anemia Aortic stenosis, severe Cancer of ascending colon metastatic to intra-abdominal lymph node S/p Right hemicolectomy Factitious hyperthyroidism GERD (gastroesophageal reflux disease) H/O malignant neoplasm of breast H/O malignant neoplasm of colon Hypertension Hypertension Hypomagnesemia Normocytic anemia Severe aortic stenosis s/p TAVR UTI (urinary tract infection) Surgical History H/O cardiac catheterization H/O colonoscopy H/O heart valve replacement with porcine valve History of esophagogastroduodenoscopy (EGD) [place] [facility] [place]/P chole[place] S/P right hemicolectomy Status post closure of ileostomy Status post right breast lumpectomy Family History Mother Stroke Hypertension Son Diabetes type 2 Son Diabetes type 2 Father Cancer lung cancer - smoker Brother Cancer unknown type Social History Smoking/Tobacco Use Status: Former Tobacco Use Pack-years: 141 Tobacco: How many years used: 47 Alcohol Intake: current Alcohol Intake frequency: a few times a month Drug use: Never Substance use type: does not use Do you feel safe at home: Yes Do you feel safe in your relationship?: Yes Exam <Cj Laurent MD - Last Filed: 08/18/20 15:52> Narrative Exam Narrative: GEN: awake, alert, oriented 3. Pleasant, well groomed, interactive. HEAD: Normocephalic, atraumatic ENT: Mucous membranes moist, oropharynx unremarkable, External ear exam unremarkable EYES: PERRL, EOMI NECK: Full ROM, no MIKE, no menigismus CHEST/RESP: Nontender, clear to auscultation bilateral, no wheeze/rhonchi/rales CARDIOVASCULAR: DISTANT RRR, unable to appreciate further heart sounds. 2+ Rad pulse bilateral ABDOMEN: Soft, ventral hernia that is reducible, positive bowel sounds, mild diffuse anterior abdominal tenderness EXT: Full ROM, no edema, no rash Neuro: Grossly normal neurologic exam, conversant, interactive. Psych: Speech fluent, thoughts congruent, affect normal Course <Cj Laurent MD - Last Filed: 08/18/20 15:52> Vital Signs Vital signs: Vital Signs Temperature 36.6 C 08/18/20 14:40 Pulse 95 H 08/18/20 14:40 Blood Pressure 176/69 H 08/18/20 14:40 Pulse Oximetry 98 08/18/20 14:40 Temperature 36.6 C 08/18/20 14:40 Temperature Source Skin 08/18/20 14:40 Pulse 95 H 08/18/20 14:40 Blood Pressure 176/69 H 08/18/20 14:40 Pulse Oximetry 98 08/18/20 14:40 Oxygen Delivery Method Room Air 08/18/20 14:40 Oxygen Flow Rate 0 08/18/20 14:40 Pain Level 9 08/18/20 14:40 Comment 08/18/20 14:40 Sign Out <Cj Laurent MD - Last Filed: 08/18/20 15:52> Sign Out Data: Sign Out Comment: followup labs/ct Last updated by Cj Laurent MD at 08/18/20 16:05
[2020-08-18] MEDS: Normal Saline Flush 10 ML SYR IVP (15:40)
[2020-08-18 15:41] LABS: Lactate 1.1 mmol/L (0.6-1.4)
[2020-08-18] MEDS: Breeza Beverage 473 ML BTL PO ×2 (15:41→15:42)
[2020-08-18] MEDS: Omnipaque 350 MG/ML 50 ML BTL PO (15:42)
[2020-08-18] MEDS: Normal Saline 1,000 ML 125 ML IV (15:42)
[2020-08-18 15:44] LABS: Abs Immature Grans 0.07 10^3/uL (0.0-0.06); Absolute Basophil Count 0.02 10^3/uL (0.0-0.2); Absolute Eosinophil Count 0.06 10^3/uL (0.0-0.7); Absolute Lymphocyte Count 0.48 10^3/uL (1.2-3.4); Absolute Monocyte Count 0.44 10^3/uL (0.1-0.8); Absolute Neutrophil Count 7.97 10^3/uL (1.2-6.7); Basophils % 0.2; Eosinophils % 0.7; HCT 42.7 % (36.0-46.0); HGB 14.1 g/dL (11.2-15.7); Immature Grans % 0.8; Lymphocytes % 5.3; MCH 30.6 pg (27.0-33.0); MCV 92.6 fL (80-95); MPV 9.4 fL (8.0-11.0); Monocytes % 4.9; Neutrophils % 88.1; Nucleated RBC 0 %; Platelet Count 222 10^3/uL (130-400); RBC 4.61 10^6/uL (3.93-5.22); RDW-SD 47.4 fL; WBC 9.04 10^3/uL (4.4-10.8)
[2020-08-18] MEDS: Ondansetron 4 MG/2 ML VIAL IVP (15:46)
[2020-08-18 16:02] LABS: ALT 20 U/L (14-59); AST 21 U/L (15-37); Albumin 3.8 g/dL (3.4-5.0); Alkaline Phosphatase 106 U/L (46-116); Anion Gap 9.8 mmol/L (3-11); BUN 23 mg/dL (7-18); Bilirubin, Total 0.4 mg/dL (0.2-1.0); CO2 26.2 mmol/L (21.0-32.0); CREATININE 1.71 mg/dL (0.55-1.02); Calcium 9.6 mg/dL (8.5-10.1); Chloride 102 mmol/L (98-107); Estimated GFR 29.18 (mL/min/1.73m2); Glucose 104 mg/dL (74-106); Lipase 207 U/L (73-393); Potassium 4.6 mmol/L (3.5-5.1); Sodium 138 mmol/L (136-145); Total Protein 7.6 g/dL (6.4-8.2)
--- NOTE | 2020-08-18 17:06 | DI.CT_ITS ---
EXAM: CT ABDOMEN PELVIS WO CLINICAL HISTORY: Ventral hernia, with bloating and pain. TECHNIQUE: Imaging Protocol: Axial computed tomography images with coronal and sagittal reformatted images were created and reviewed. COMPARISON: CT CT ABDOMEN PELVIS W from 04/16/2020 FINDINGS: ABDOMEN: Lung Bases: Atelectasis or scarring in the right middle lobe. Aortic valve replacement. Liver: Normal density. No measurable mass. Gallbladder and biliary tract: Status post cholecystectomy. Pancreas: Normal density, no abnormal calcifications or inflammatory process. Spleen: Normal. Kidneys: Normal size, contour and axis.No radiodense stones or obstructive uropathy. No masses seen. Adrenal glands: Stable mild nodularity of the adrenal glands. Lymph nodes: Within normal limits. Abdominal Aorta: Atherosclerosis. No aneurysmal dilatation. PELVIS: Bladder:Incompletely distended but otherwise unremarkable. Bowel: There is a large umbilical hernia containing a loop of small bowel. This particular loop of s mall bowel is dilated up to 3.6 cm in diameter. There is mild dilatation of the bowel proximal to th e hernia. The oral contrast is not advanced beyond the herniated small bowel. There is infiltration in the surrounding soft tissues. There are 2 other smaller anterior abdominal wall hernias. One co ntaining a loop of colon which is unremarkable. There is colonic diverticulosis but no evidence of a cute diverticulitis. No evidence of an acute appendicitis. Peritoneal cavity: There is a trace amount of free fluid in the pelvis which may be reactive. Reproductive organs: Reproductive organs are grossly unremarkable. Calcifications are seen within th e uterus which may be vascular or represent fibroids. Bones: Stable compression deformities are seen in the lumbar spine. Moderate degenerative changes ar e seen in the spine. Soft Tissues: Please see the bowel section above. IMPRESSION: Findings suspicious for strangulated small bowel within a large umbilical hernia. RADIATION DOSE DELIVERED: 1,030.3mGy.cm Total DLP DATA REPOSITORY: All CT scans at this facility are submitted to the National Radiology Data Registry (NRDR) Dose Index Registry (DIR) with the [employer] (ACR). RADIATION OPTIMIZATION: All CT scans at this facility use at least one of these dose optimization te chniques: automated exposure control; mA and/or kV adjustment per patient size (includes targeted exa ms where dose is matched to clinical indication); or iterative reconstruction.
--- NOTE | 2020-08-18 17:30 | DI.VRAD_ITS ---
Addendum created by Robert Del Real DO on 08/18/2020 5:50:28 PM EDT: Addendum: Impression should read as follows: Evidence of strangulated small bowel within a large umbilical hernia. This finding was discussed with nurse practitioner Emelia Langley by Dr. Del Real at approximately 4:50 p.m. on 08/18/2020 by phone. Central standard time. Initial report created on 08/18/2020 5:29:41 PM EDT: PROCEDURE INFORMATION: Exam: CT Abdomen And Pelvis Without Contrast Exam date and time: 08/18/2020 4:22 PM Age: 75 years old Clinical indication: Abdominal pain; Generalized; Patient HX: HX hernia surgery 1 yr ago. HX colon CA TECHNIQUE: Imaging protocol: Computed tomography of the abdomen and pelvis without contrast. Radiation optimization: All CT scans at this facility use at least one of these dose optimization techniques: automated exposure control; mA and/or kV adjustment per patient size (includes targeted exams where dose is matched to clinical indication); or iterative reconstruction. Other contrast: Oral; COMPARISON: CT ABDOMEN PELVIS W 04/16/2020 8:22 AM FINDINGS: Lungs: Minimal atelectasis right middle lobe. Lung bases otherwise clear. Heart: Heart is normal size. Liver: Unremarkable liver. Gallbladder and bile ducts: Cholecystectomy. Mild prominence of the common bile duct may be postsurgical. Pancreas: Unremarkable pancreas. Spleen: Unremarkable spleen. Adrenals: Similar thickening both adrenal glands without definite underlying mass or nodule. Kidneys and ureters: Unremarkable appearance both kidneys. Stomach and bowel: The stomach is distended with contrast. There appears to be some degree of malrotation with the duodenum not completely crossing midline and jejunal loops within the right abdomen. Surgical changes of bowel right lower quadrant. Diverticulosis without convincing evidence of diverticulitis. There is a relatively large umbilical hernia containing loops of small bowel at least 1 loop of which appears dilated up to 3.6 cm. There is prominent adjacent stranding which extends into the abdomen. Appendix: Appendix is not identified. Intraperitoneal space: No free air. Small amount of free fluid within the pelvis likely reactive. Vasculature: Scattered vascular calcifications. Normal caliber aorta. Lymph nodes: No suspicious lymphadenopathy. Bladder: Limited evaluation of the bladder due to under distension. Grossly unremarkable. Reproductive: Atrophic uterus not unexpected for patient's age. Calcifications of the uterus may be related to uterine fibroids or vascular calcifications. Bones/joints: Chronic appearing right anterior 4th rib deformity. Scattered bony degenerative changes. Osteopenia. Redemonstrated compression deformities of the lumbar spine. Not significantly changed. Soft tissues: There is a small separate ventral abdominal wall hernia containing colon on image 40 series 2 without evidence of acute complication. Other findings: Redemonstrated aortic valve replacement. IMPRESSION: No evidence of strangulated small bowel within a large umbilical hernia. Other findings as detailed. Dictated and Authenticated by: Robert Del Real MD. Ordering:THIAGO Corona MD
[2020-08-18] MEDS: fentaNYL 100 MCG/2 ML VIAL 50 MCG IVP (18:09)
[2020-08-18] MEDS: PIPERACILLIN/TAZO 3.375 GM in Normal Saline 50 ML IVPB (19:45)
[2020-08-18] MEDS: Lactated Ringers 1,000 ML 30 ML IV (20:39)
[2020-08-18] MEDS: FentaNYL/ROPIvacaine 2 mcg/ml and 0.1% 200 ML CADD Cassette EP (21:20)
--- NOTE | 2020-08-18 23:56 | W.PM.HP.N ---
Date of service: 08/18/20 Time of Service: 23:56 Assessment and Plan Assessment and plan (1) Incarcerated incisional hernia: Status: Acute Assessment and plan: to OR for open repair w/ mesh reviewed risk and benefits Abx initiated plan GETA and epidural Anesthesia feels she is an acceptable risk She is only on ASA at this time will plan on placing mesh (2) S/p TAVR (transcatheter aortic valve replacement), bioprosthetic: Status: Acute (3) GERD (gastroesophageal reflux disease): Status: Acute (4) Adenocarcinoma of right breast: Status: Acute (5) Cancer of ascending colon metastatic to intra-abdominal lymph node: Status: Acute (6) Hypertension: Status: Chronic (7) History of aortic valve replacement with bioprosthetic valve: Status: Acute (8) Recurrent ventral hernia: Status: Acute (9) Yeast dermatitis: Status: Acute History of Present Illness Consults Consult date: 08/18/20 Narrative: pt had a perforating colon cancer in 2017 and a dvierting ostomy. She had an ostomy takedown. In 2019 She had an incarcerated ventral hernia adn had an open repair, but w/out mesh b/c she was on Plavix do to her recent TAVR. After that surgery, She was still caring for her and lifting him. He is now in a care center. Today she presents to ED w/ N/V and abdom pain for <24hrs. CT scans reviewed. I was able to get her OP reports and cardiology reports from [facility] and were reviewed. I did d/w case w/ anesthesia, they feel his is an accpetible risk for surgery at [facility] risk include: Informed consent is obtained for the procedural (explained in simple layman's terms that the pt and/or family could understand) explaining risks vs benefits and alternatives to the procedure and consequences if we do not do the procedure. Risks include but are not limited to:bleeding,infections, pneumonia, blood clots/DVT/PE, anesthesia(aspiration, damage to teeth/airway/[place]/CVA//prolonged mechanical ventilation/PTX/IV infections), damage to bowel/enterotomy and fistulas, bladder,blood vessels. reaction to mesh or infections. recurrence of hernia. subsequent. Leakage from anastomosis requiring colostomy/ Wound infections requiring further surgery. Scarring and disfigurement. Subsequent bowel obstructions from scar tissue. Review of Systems All systems reviewed & are unremarkable except as noted in HPI and below PFSH Medical History (Updated 08/19/20 @ 13:41 by Stacie Delaney DO) Acute CHF prior to TAVR. none since then Adenocarcinoma of right breast s/p Lumpectomy Advance directive on file Anemia Aortic stenosis, severe s/p TAVR Cancer of ascending colon metastatic to intra-abdominal lymph node S/p Right hemicolectomy Factitious hyperthyroidism GERD (gastroesophageal reflux disease) H/O malignant neoplasm of breast H/O malignant neoplasm of colon Hypertension Hypertension Hypomagnesemia Incarcerated incisional hernia Normocytic anemia Severe aortic stenosis s/p TAVR UTI (urinary tract infection) Yeast dermatitis Surgical History (Updated 08/19/20 @ 00:01 by Stacie Delaney DO) H/O cardiac catheterization H/O colonoscopy H/O heart valve replacement with porcine valve History of esophagogastroduodenoscopy (EGD) History of ventral hernia repair 07/01/19 at [facility] S/P cholecystectomy S/P right hemicolectomy S/p TAVR (transcatheter aortic valve replacement), bioprosthetic Status post closure of ileostomy Status post right breast lumpectomy Family History Mother Stroke Hypertension Son Diabetes type 2 Son Diabetes type 2 Father Cancer lung cancer - smoker Brother Cancer unknown type Social History Smoking/Tobacco Use Status: Former Tobacco Use Pack-years: 141 Tobacco: How many years used: 47 Alcohol Intake: current Alcohol Intake frequency: a few times a month Drug use: Never Substance use type: does not use Do you feel safe at home: Yes Do you feel safe in your relationship?: Yes Meds Home Medications and Allergies Home Medications Medication Instructions Recorded Confirmed Type ascorbic acid (vitamin C) 500 mg PO TID #90 cap 04/16/20 05/04/20 Rx aspirin [Aspirin Low Dose] 81 mg PO DAILY #30 tab 04/16/20 08/18/20 Rx ferrous sulfate 325 mg PO TID #90 tab 04/16/20 05/04/20 Rx folic acid 1 mg PO DAILY #30 tab 04/16/20 05/04/20 Rx metoprolol succinate 12.5 mg PO BID #30 tab 04/16/20 08/18/20 Rx ondansetron 4 mg PO TID PRN #6 tab 04/16/20 05/04/20 Rx sucralfate [Carafate] 1 gm PO QACHS #120 tab 04/16/20 05/04/20 Rx omeprazole 20 mg PO PRN PRN 08/18/20 08/18/20 History Allergies Allergy/AdvReac Type Severity Reaction Status Date / Time morphine Allergy Intermediate Hives Unverified 08/18/20 14:49 Exam Const General: cooperative, healthy appearing, comfortable, no acute distress, well developed and well groomed Nutritional Appearance: average body habitus and well nourished Orientation: alert, awake and oriented x3 HENMT Head: normal to inspection, normocephalic and atraumatic Ears: hearing grossly normal bilaterally and external ears normal General nose exam: external nose normal Face and sinus: normal facial exam and sinuses nontender Mouth: oral mucosae normal, lip normal, tongue normal and moist mucous membranes Teeth and gingiva: dentition normal Eyes General: appearance normal, both eyes and all related structures Conjunctivae: conjunctivae normal Sclera: sclerae normal Pupils: PERRL Neck Neck: normal visual inspection and full ROM Chest Chest: normal inspection of the chest Resp Effort & Inspection: normal respiratory effort, able to speak in complete sentences, no cough, no nasal flaring, not tachypneic and no use of accessory muscles Auscultation: clear to auscultation bilaterally, no rales, no rhonchi and no wheezes Cardio Jugular venous pressure: no JVD Rate: regular rate Rhythm: regular rhythm GI Inspection: normal to inspection, no edema, distended, incision, obesity, striae and visible herniation Palpation: firm, guarding, no masses, tender and No ascites Auscultation: absent bowel sounds Other: incarcerated hernia. lg amount of yeast dermatis under pannus Skin General skin exam: no rashes or lesions noted Trauma: no lacerations or abrasions Neuro General: patient alert, patient oriented x3, oriented, gait normal, moves all extremities, no focal motor deficits and CN's II-XI intact bilaterally Cognition: normal cognition Speech: speech normal Gait: normal gait Motor: muscle tone normal throughout Extrem General: normal to inspection and full ROM Psych Appearance: grossly normal and well kempt Mental Status: mental status grossly normal Speech and Movement: speech and movement normal Affect: normal affect Results Labs Result diagrams: 08/19/20 07:57 08/19/20 07:57 Labs: Laboratory Results - last 24 hr 08/18/20 08/18/20 08/18/20 15:30 15:30 15:30 WBC 9.04 RBC 4.61 Hgb 14.1 Hct 42.7 MCV 92.6 MCH 30.6 MCHC 33.0 RDW 14.0 Plt Count 222 MPV 9.4 Immature Gran % 0.8 Neutrophils % 88.1 Lymphocytes % 5.3 Monocytes % 4.9 Eosinophils % 0.7 Basophils % 0.2 Nucleated RBC % 0 Absolute Neutrophils 7.97 H Absolute Lymphocytes 0.48 L Absolute Monocytes 0.44 Absolute Eosinophils 0.06 Absolute Basophils 0.02 VBG Lactate 1.1 Sodium 138 Potassium 4.6 Chloride 102 Carbon Dioxide 26.2 Anion Gap 9.8 BUN 23 H Creatinine 1.71 H Estimated GFR/1.73 m2 29.18 Glucose 104 Calcium 9.6 Total Bilirubin 0.4 AST 21 ALT 20 Alkaline Phosphatase 106 Total Protein 7.6 Albumin 3.8 Lipase 207 Last Vital Signs Temp 36.5 C 08/18/20 23:48 Pulse 79 08/18/20 23:48 Resp 16 08/18/20 23:48 BP 122/63 08/18/20 23:48 Pulse Ox 94 08/18/20 23:48 COVID-19 Screening Have you,or household,traveled outside NH in last 14 days?: No Had IN PERSON contact w/suspected or confirmed C-19 person: No
[2020-08-19] VITALS (18 sets, daily range): BP systolic 96–118; BP diastolic 57–67; PULSE 64–86; RESP 12–17; TEMP 35.8–37.8; O2SAT 92–97
--- NOTE | 2020-08-19 00:01 | W.PM.OP ---
Date of service: 08/19/20 Time of Service: 00:01 Operative Note Operative Note DATE OF PROCEDURE: 08/18/20 PRE-OP DIAGNOSIS: incarcerated incisional hernia POST-OP DIAGNOSIS: other PROCEDURE: laporatomy lysis of adhesions closure: mesh on -lay 20x14 x2 PARAG drains I 500 O 100 SURGEON: Stacie Delaney COLON AND RECTAL SURGEON: Maxi Oh ANESTHESIA: GETA and spinal ESTIMATED BLOOD LOSS: 50 PATHOLOGY: none sent COMPLICATIONS: None Patient was transported to: PACU Patient's condition: stable Implants: see RN notes Procedure Description: Patient is here today for incarcerated incisional hernia filled with colon. She has had 3 laparotomies in the past and 1 hernia repair that was done without mesh. Informed consent is obtained explaining risks and benefits of the procedure including not limited to: Bleeding, infection, pneumonia, blood clots, damage to bowel bladder or blood vessels, possible enterotomies, recurrent bowel obstructions. Reaction or infection from the mesh. Chronic pain or chronic numbness; recurrence of the hernia. Complications of anesthesia including GA, CVA, and , and other unknown complications. Epidural is placed by anesthesia and preop. Patient is brought to the operative suite and placed in the supine position. Anesthesia is administered by department of anesthesia. Patient is prepped and draped in the usual sterile fashion using a Betadine scrub solution. Timeout is performed. She did receive preop antibiotics. She had an NG tube and a Simeon cath placed. Good IV access was ensured. The old vertical midline scar was removed using a #10 blade. Electrocautery was used to dissect down to the fascia and to provide hemostasis. Hernia sac is been encountered and this is sharply dissected off the fascia and subcutaneous tissues. The hernia sac is opened; the contents are pink and healthy and viable. Considerable time then is spent opening up the fascia and removing the hernia sac, and dissecting the fatty tissue off the fascial remnants. She does have extensive small bowel adhesions, up to the anterior abdominal wall. Greater than 30 minutes spent lysing adhesions. She does have dense adhesions in the abdomen. I cannot run the small bowel, or the colon. The liver that I could see and palpate, is normal. I cannot visualize the pelvic organs. Because of the density of adhesions, is not feasible, or safe to lyse all the adhesions. There is no sign of any bleeding, or any enteric leakage from/or damage to the small bowel. Two Pieces of Interceed were placed into the abdominal cavity. The fascia was closed primarily with #1 PDS in running fashion. The fascia was basically [place] cheese, and had numerous defects. A Marlex mesh onlay type repair is performed-a 20 x 14 cm piece of mesh was placed. the entirety of the hernia defect is 12 x 8 cm, once all the defects are open up. The mesh onlay is sewn on with 2-0 Vicryl. The fascia irrigated. 2 number 15French drains are brought out through separate stab incisions and sewn in. The subcutaneous tissues closed with 2-0 Vicryl. Skin is closed with renetta. The drains are sewn and separately with 2-0 Prolene. Sterile dressing is applied. Patient tolerated procedure well and transferred to medical surgical unit in stable condition
[2020-08-19] MEDS: Normal Saline 1,000 ML 125 ML IV ×3 (00:28→16:10)
[2020-08-19] MEDS: ACETAMINOPHEN 1,000 MG/100 ML BTL 400 MG IVPB ×3 (02:20→18:18)
[2020-08-19 08:13] LABS: Abs Immature Grans 0.05 10^3/uL (0.0-0.06); Absolute Basophil Count 0.01 10^3/uL (0.0-0.2); Absolute Lymphocyte Count 0.17 10^3/uL (1.2-3.4); Absolute Monocyte Count 0.56 10^3/uL (0.1-0.8); Absolute Neutrophil Count 11.98 10^3/uL (1.2-6.7); Basophils % 0.1; HCT 35.2 % (36.0-46.0); HGB 11.7 g/dL (11.2-15.7); Immature Grans % 0.4; Lymphocytes % 1.3; MCHC 33.2 % (32.0-36.0); MCV 93.1 fL (80-95); MPV 9.7 fL (8.0-11.0); Monocytes % 4.4; Neutrophils % 93.8; Nucleated RBC 0 %; Platelet Count 161 10^3/uL (130-400); RBC 3.78 10^6/uL (3.93-5.22); RDW 14.2 % (11.7-14.6); RDW-SD 48.1 fL; WBC 12.77 10^3/uL (4.4-10.8)
[2020-08-19 08:36] LABS: BUN 22 mg/dL (7-18); CREATININE 1.54 mg/dL (0.55-1.02); Calcium 8.4 mg/dL (8.5-10.1); Chloride 105 mmol/L (98-107); Estimated GFR 32.93 (mL/min/1.73m2); Glucose 149 mg/dL (74-106); Magnesium 1.8 mg/dL (1.8-2.4); NT-proBNP 3340 pg/mL (<300); Potassium 4.4 mmol/L (3.5-5.1); Sodium 139 mmol/L (136-145)
[2020-08-19] MEDS: Pantoprazole 40 MG VIAL IVP (10:43)
--- NOTE | 2020-08-19 12:47 | PDOC.ANES ---
Date of service: 08/19/20 Time of Service: 12:47 Anesthesia Note Report Anesthesia Note: Epidural Daily Management: Pt is POD1 for incarcerated hernia repair laparotomy. She is conversive with 0/10 pain. Her infusion is at 10ml/hr with 5ml PCEA Bolus. Dressing is intact, catheter at 11cm at skin. Movign all extremities. Pt. educated on PCEA bolus dosing if she has increasing pain. Nursing was concerned her blood pressure was trending down and that her sensory level was T4. I reduced the infusion rate to 8ml/hour, although I do not believe this is impacting her blood pressure. Pt. has no questions. We will revisit her tomorrow.
[2020-08-19 13:03] LABS: COVID-19 RT-PCR UVMMC Result Negative (Negative)
--- NOTE | 2020-08-19 13:35 | PGE_ITS ---
Date of Service Date of service: 08/19/20 Time of Service: 13:35 Assessment and Plan Assessment and plan (1) GERD (gastroesophageal reflux disease): Status: Acute (2) Adenocarcinoma of right breast: Status: Acute (3) S/p TAVR (transcatheter aortic valve replacement), bioprosthetic: Status: Acute (4) Cancer of ascending colon metastatic to intra-abdominal lymph node: Status: Acute (5) Incarcerated incisional hernia: Status: Acute Assessment and plan: Postop day 1 status post repair of incarcerated incisional hernia. Mesh was used. She has epidural in place and is quite comfortable. Clinically she still has a normal postop ileus point. She should be up and walking. No signs of any enterotomies. She is not on antibiotic. We will start Lovenox today. She should be on a p.o. diet. We will have physical therapy consult to aid in ambulation. (6) Hypertension: Status: Chronic Subjective Subjective Interval history since last seen: Patient seen and examined. We discussed the surgery from last night. Patient is not having any pain. She has numbness in her fingers 4 and 5. She denies having any numbness in her feet. She denies any chest pain or shortness of breath. She is irritation in her throat from the NG tube. She is not coughing up any material. She is not passing any gas. She is not been out of bed today. She had quite a bit output from her NG tube and surgery Exam [facility] Other: Edentulous no jaundice No thrush Chest Other: She has had a left-sided PowerPort. Is out. She has had a left-sided lumpectomy and radiation Resp Effort & Inspection: normal respiratory effort and able to speak in complete sentences Auscultation: clear to auscultation bilaterally Cardio Rate: regular rate Rhythm: regular rhythm GI Palpation: soft and tender Auscultation: absent bowel sounds Other: Dressing is clean dry and intact Extrem Other: She can move both her lower extremities denies numbness. She has varicosities. She has changes consistent with chronic osteoarthritis. She has no pedal edema. +. Objective Last Vital Signs Temp 37.3 C 08/19/20 11:05 Pulse 64 08/19/20 11:05 Resp 12 08/19/20 11:05 BP 97/61 L 08/19/20 11:05 Pulse Ox 97 08/19/20 11:05 Laboratory Results - last 24 hr 08/18/20 08/18/20 08/18/20 15:30 15:30 15:30 WBC 9.04 RBC 4.61 Hgb 14.1 Hct 42.7 MCV 92.6 MCH 30.6 MCHC 33.0 RDW 14.0 Plt Count 222 MPV 9.4 Immature Gran % 0.8 Neutrophils % 88.1 Lymphocytes % 5.3 Monocytes % 4.9 Eosinophils % 0.7 Basophils % 0.2 Nucleated RBC % 0 Absolute Neutrophils 7.97 H Absolute Lymphocytes 0.48 L Absolute Monocytes 0.44 Absolute Eosinophils 0.06 Absolute Basophils 0.02 VBG Lactate 1.1 Sodium 138 Potassium 4.6 Chloride 102 Carbon Dioxide 26.2 Anion Gap 9.8 BUN 23 H Creatinine 1.71 H Estimated GFR/1.73 m2 29.18 Glucose 104 Calcium 9.6 Magnesium Total Bilirubin 0.4 AST 21 ALT 20 Alkaline Phosphatase 106 NT-Pro-B Natriuret Pep Total Protein 7.6 Albumin 3.8 Lipase 207 08/19/20 08/19/20 07:57 07:57 WBC 12.77 H D RBC 3.78 L Hgb 11.7 D Hct 35.2 L MCV 93.1 MCH 31.0 MCHC 33.2 RDW 14.2 Plt Count 161 MPV 9.7 Immature Gran % 0.4 Neutrophils % 93.8 Lymphocytes % 1.3 Monocytes % 4.4 Eosinophils % 0.0 Basophils % 0.1 Nucleated RBC % 0 Absolute Neutrophils 11.98 H Absolute Lymphocytes 0.17 L Absolute Monocytes 0.56 Absolute Eosinophils 0.00 Absolute Basophils 0.01 VBG Lactate Sodium 139 Potassium 4.4 Chloride 105 Carbon Dioxide 21.0 Anion Gap 13.0 H BUN 22 H Creatinine 1.54 H Estimated GFR/1.73 m2 32.93 Glucose 149 H Calcium 8.4 L Magnesium 1.8 Total Bilirubin AST ALT Alkaline Phosphatase NT-Pro-B Natriuret Pep 3340 H Total Protein Albumin Lipase
--- NOTE | 2020-08-19 16:44 | INITIAL_ITS ---
- If Service Date Differs Date of service: 08/19/20 Time of Service: 16:44 Care Management Initial Assess REASON FOR HOSPITALIZATION:: Incarcerated incisional hernia PAST MEDICAL HISTORY/PAST SURGICAL HISTORY:: Medical History (Updated 08/19/20 @ 13:41 by Stacie Delaney DO). Acute CHF. prior to TAVR. none since then. Adenocarcinoma of right breast. s/p Lumpectomy. Advance directive on file. Anemia. Aortic stenosis, severe. s/p TAVR. Cancer of ascending colon metastatic to intra-abdominal lymph node. S/p Right hemicolectomy. Factitious hyperthyroidism. GERD (gastroesophageal reflux disease). H/O malignant neoplasm of breast. H/O malignant neoplasm of colon. Hypertension. Hypertension. Hypomagnesemia. Incarcerated incisional hernia. Normocytic anemia. Severe aortic stenosis. s/p TAVR. UTI (urinary tract infection). Yeast dermatitis. Surgical History (Updated 08/19/20 @ 00:01 by Stacie Delaney DO). H/O cardiac catheterization. H/O colonoscopy. H/O heart valve replacement with porcine valve. History of esophagogastroduodenoscopy (EGD). History of ventral hernia repair. 07/01/19 at [facility]. S/P cholecystectomy. S/P right hemicolectomy. S/p TAVR (transcatheter aortic valve replacement), bioprosthetic. Status post closure of ileostomy. Status post right breast lumpectomy PREVIOUS FUNCTIONAL STATUS/SOCIAL/FAMILY SUPPORTS:: Polina lives in [facility] with her son, daugther in law, and grand daughter. 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 She shared that one of her children recently passed due to suicide (a few years ago), which was very hard for her and her family. She is a proud mother and grand mother. She is independent at baseline, but does not drive. Her son and daughter in law drive her to appointments. CURRENT FUNCTIONAL STATUS:: Polina was lying in bed when [facility] met with her. She stated that she had surgery yesterday, and still has not been able to eat. She reported that she does not have any pain. [facility] offered her a word search, which she accepted. She was pleasant and engaged in conversation. CM will continue to follow. ADVANCE DIRECTIVES:: None on file. Has patient been provided with info about the portal/API?: No Did the patient sign up for the portal?: No CODE STATUS:: Full Code INSURANCE COVERAGE / FINANCIAL ISSUES:: MCR CURRENT HOME/COMMUNITY SERVICES/EQUIPMENT:: Polina currently has support from [employer] and [employer]. PRIMARY CARE PHYSICIAN:: Tiana Romano POTENTIAL DISCHARGE NEEDS:: Evaluations for further needs, follow up appointments PATIENT/FAMILY EDUCATION NEEDS:: Review discharge instructions regarding activity levels and medications, discussion of self care needs including ask me three. ANTICIPATED BARRIERS TO DISCHARGE:: None identified at this time. TRANSPORTATION:: Via private vehicle by family. PLAN:: Anticipate Polina will return home with no additional services when medically cleared. Her son will drive her home when she is ready. She will follow up with Surgical services, her PCP and discharge plan of care. CM will continue to follow.
[2020-08-19] MEDS: FentaNYL/ROPIvacaine 2 mcg/ml and 0.1% 200 ML CADD Cassette EP (17:11)
[2020-08-20] VITALS (16 sets, daily range): BP systolic 95–122; BP diastolic 52–67; PULSE 54–85; RESP 16–18; TEMP 36.2–37.8; O2SAT 91–94
[2020-08-20] MEDS: Normal Saline 1,000 ML 125 ML IV ×2 (00:14→08:57)
[2020-08-20] MEDS: ACETAMINOPHEN 1,000 MG/100 ML BTL 400 MG IVPB ×3 (01:14→17:50)
--- NOTE | 2020-08-20 07:20 | W.PM.PROGNOT ---
Date of Service Date of service: 08/20/20 Time of Service: 07:21 Assessment and Plan Assessment and plan (1) Yeast dermatitis: Status: Acute (2) GERD (gastroesophageal reflux disease): Status: Acute (3) S/p TAVR (transcatheter aortic valve replacement), bioprosthetic: Status: Acute (4) Incarcerated incisional hernia: Status: Acute Assessment and plan: Clamp NG tube and check residuals at noon. We will try to get this out today . Water and ice weight Drain care. Patient most likely go home with these and needs drain care teaching In her age walking today and pulmonary toilet We will leave the epidural in until Friday or Friday. Maintain Simeon as long as epidural is in place She is receiving Lovenox and epidural catheter removal will need to be coordinated Continue supportive care (5) Hypertension: Status: Chronic Subjective Subjective Interval history since last seen: Patient is seen and examined. She has minimal pain, except when she coughs. It is did discuss the importance of coughing and deep breathing and during her incentive spirometry with her. She states she had 1 or 2 small little puffs of flatus. She had about 200 cc out over midnight shift from the NG tube. no headaches. No CP or SOB. no productive cough. No fevers no leg pain or swelling. Small amounts of bloody drainage in her PARAG drains Exam Narrative Exam Narrative: PHYSICAL EXAM GENERAL APPEARANCE: Alert, healthy appearance, oriented, in no acute distress SKIN: No thrush No rashes. HYDRATION: Well hydrated HEAD, EYES, EARS, NECK, AND THROAT: Head is normocephalic, pupils equal, round, reactive to light and accommodation, ocular movement intact, sclera clear and no jaundice. Edentulous. No throat pain. LUNGS: normal respiration, clear to auscultation no R/R/W HEART: Regular rate and rhythm, EXTREMITY: No edema or cyanosis ABDOMEN: Incision is clean dry and intact. Non tender to palpation, no masses or distention, no hernias. minimal bowel sounds-they are present today. Minimal pain NEURO: no focal neuro deficits Objective Last Vital Signs Temp 36.9 C 08/20/20 03:55 Pulse 71 08/20/20 03:55 Resp 16 08/20/20 05:00 BP 95/55 L 08/20/20 03:55 Pulse Ox 92 08/20/20 03:55 Laboratory Results - last 24 hr 08/18/20 08/19/20 08/19/20 19:30 07:57 07:57 WBC 12.77 H D RBC 3.78 L Hgb 11.7 D Hct 35.2 L MCV 93.1 MCH 31.0 MCHC 33.2 RDW 14.2 Plt Count 161 MPV 9.7 Immature Gran % 0.4 Neutrophils % 93.8 Lymphocytes % 1.3 Monocytes % 4.4 Eosinophils % 0.0 Basophils % 0.1 Nucleated RBC % 0 Absolute Neutrophils 11.98 H Absolute Lymphocytes 0.17 L Absolute Monocytes 0.56 Absolute Eosinophils 0.00 Absolute Basophils 0.01 Sodium 139 Potassium 4.4 Chloride 105 Carbon Dioxide 21.0 Anion Gap 13.0 H BUN 22 H Creatinine 1.54 H Estimated GFR/1.73 m2 32.93 Glucose 149 H Calcium 8.4 L Magnesium 1.8 NT-Pro-B Natriuret Pep 3340 H COVID-19 PCR Negative Nasopharyn COVID-19 PCR Not Applicable Ref Test Perform Site [facility]
[2020-08-20 07:56] LABS: Abs Immature Grans 0.05 10^3/uL (0.0-0.06); Absolute Basophil Count 0.02 10^3/uL (0.0-0.2); Absolute Eosinophil Count 0.01 10^3/uL (0.0-0.7); Absolute Lymphocyte Count 0.34 10^3/uL (1.2-3.4); Absolute Monocyte Count 0.43 10^3/uL (0.1-0.8); Absolute Neutrophil Count 5.51 10^3/uL (1.2-6.7); Basophils % 0.3; Eosinophils % 0.2; HCT 30.1 % (36.0-46.0); HGB 9.6 g/dL (11.2-15.7); Immature Grans % 0.8; Lymphocytes % 5.3; MCHC 31.9 % (32.0-36.0); MCV 97.1 fL (80-95); MPV 9.6 fL (8.0-11.0); Monocytes % 6.8; Neutrophils % 86.6; Nucleated RBC 0 %; Platelet Count 140 10^3/uL (130-400); RDW 14.7 % (11.7-14.6); RDW-SD 52.5 fL; WBC 6.36 10^3/uL (4.4-10.8)
[2020-08-20 08:27] LABS: Anion Gap 6.2 mmol/L (3-11); BUN 18 mg/dL (7-18); CO2 25.8 mmol/L (21.0-32.0); Calcium 7.8 mg/dL (8.5-10.1); Chloride 109 mmol/L (98-107); Estimated GFR 43.91 (mL/min/1.73m2); Glucose 73 mg/dL (74-106); Potassium 4.3 mmol/L (3.5-5.1); Sodium 141 mmol/L (136-145)
[2020-08-20] MEDS: Normal Saline Flush 10 ML SYR IVP (08:58)
[2020-08-20] MEDS: Pantoprazole 40 MG VIAL IVP (08:58)
[2020-08-20] MEDS: Metoprolol CR 25 MG TABCR 12.5 MG PO ×2 (09:00→20:03)
[2020-08-20] MEDS: FentaNYL/ROPIvacaine 2 mcg/ml and 0.1% 200 ML CADD Cassette EP (09:39)
[2020-08-20] MEDS: Nystatin POWDER 15 GM JAR TP ×2 (09:39→20:06)
--- NOTE | 2020-08-20 10:28 | PT.INIE ---
Date of service: 08/20/20 Time of Service: 09:53 PT Notes Visit Reasons: INCARCERATED INCISIONAL HERNIA Inpatient Physical Therapy Evaluation Date: 08/20/20 Referring Doctor: Stacie Delaney PT Orders: PT CONSULT: s/p incarcerated hernia & laparotomy Precautions: Fall, standard, abdominal incision, drain tubes, epidural pain mangement Patient Profile/Admitting Diagnosis: Incarcerated incisional hernia PMHX: (Updated 08/19/20 @ 13:41 by Stacie Delaney DO) Acute CHF prior to TAVR. none since then Adenocarcinoma of right breast s/p Lumpectomy Advance directive on file Anemia Aortic stenosis, severe s/p TAVR Cancer of ascending colon metastatic to intra-abdominal lymph node S/p Right hemicolectomy Factitious hyperthyroidism GERD (gastroesophageal reflux disease) H/O malignant neoplasm of breast H/O malignant neoplasm of colon Hypertension Hypertension Hypomagnesemia Incarcerated incisional hernia Normocytic anemia Severe aortic stenosis s/p TAVR UTI (urinary tract infection) Yeast dermatitis Social History/Home Situation: Lives with son, his girlfriend, and adult grandaughter; has 4 FABIO Current Functional Limitations: Pain limiting mobility Equipment Owned/DME: FWW, cane Subjective: Spoke with nursing and ok'ed to see patient. She is in bed and agreeable to PT. Objective: General Observation: Patient resting in bed with HOB elevated, has several lines and tubes Mental Status: A&O x3 Pain: 8-9/10 abdomen ROM: Right Upper Extremity: 75% available shoulder flexion, 50% available shoulder abduction, otherwise WFL Left Upper Extremity: 75% available shoulder flexion, 50% available shoulder abduction, otherwise WFL Right Lower Extremity: hip flexion 50% available, otherwise WFL Left Lower Extremity: hip flexion 50% available, WFL Strength: Right Upper Extremity: 4+/5 Left Upper Extremity: 4+/5 Right Lower Extremity:4+/5 Left Lower Extremity: 4+/5 Sensation: Intact Bed Mobility/Transfers: Patient able to get seated EOB with min A and once upright able to scoot forward independently. CGA for bed to chair transfer with FWW. Gait: Slow and cautions with CGA using FWW from bed to chair (about 5') Balance: Static Sitting: Good Dynamic Sitting: Fair Static Standing: Good Dynamic Standing: Fair Special Tests: Mobility Limitations Standardized Measure [facility] AM-PAC 6 clicks Basic Mobility Inpatient Short Form: Raw Score: 15 CMS Score: 57.7% Informed Consent/Education: Patient instructed in purpose of PT consult and plan of care. Assessment: Patient is a 75 year old female referred to physical therapy services with the diagnosis of s/p incarcerated hernia and laparotomy. She has abdominal pain from surgery. Patient is able to get seated EOB with min A holding PT hand and pulling self up using rail. Difficulty with rolling due to abdominal pain. She was able to scoot forward to get seated EOB. Once there nursing inspected her epidural and had some concerns. Patient sat EOB several minutes for gown change and she had several lines/tubes to be managed or pinned to gown. Upon standing with FWW she was steady and stood about a minute before walking several steps to chair. Required a lot of use of arms to lower self. She was left sitting in chair in care of nursing with call light in reach. Patient presents with clinical signs and symptoms consistent with difficulty walking and impaired transfer ability, as demonstrated by the following impairment level findings: 1. Impaired UE strength 2. Impaired LE strength 3. High pain level 4. Post op for incarcerated incisional hernia Impairments are contributing to the following functional limitations: 1. Needs assist with bed mobility 2. Needs assist with transfers 3. Decreased tolerance to activity Patient is assessed as a Moderate 21921 complexity based on the following: History: See above Examination: See above Presentation: Evolving Decision Making: Low Goals: Goals X1 week 1. Supine-Sit Independent 2. Sit-Supine Independent 3. Sit-Stand Independent 4. Stand-Sit Independent 5. Bed-Chair Independent 6. Chair-Bed Independent 7. Gait FWW x100' with supervision 8. Stairs x4 with rails Supervision 9. Independent with home exercise program Independent Plan of Care/Treatment Plan: 1-2x/day, 7 days/week x 1 week. Plan of care has been reviewed with the ANIMAL NURSERY WORKER providing the service under Physical Therapy direction. Initiate Physical Therapy intervention for strengthening, bed mobility, transfers, gait, stairs, balance training, use of assistive device. DISCHARGE RECOMMENDATIONS: Home with assist when medically cleared TREATMENT CODE/TIME: 9:53-10:27 09607 (15 minutes), 29699 (19 minutes)
[2020-08-20] MEDS: HYDROmorphone 2 MG/ML VIAL 0.5 MG IVP (11:30)
[2020-08-20] MEDS: POTASSIUM CHLORIDE/D5-0.45NACL 1,000 ML 100 MEQ IV ×2 (11:37→22:11)
[2020-08-20] MEDS: Dextrose 50%-Water 25 GM/50 ML SYR IVP (11:38)
--- NOTE | 2020-08-20 12:44 | PDOC.ANES ---
Date of service: 08/20/20 Time of Service: 12:44 Anesthesia Note Report Anesthesia Note: Epidural Daily Management Note: Called from nursing due to concern about epidural site/catheter bulging. Epidural infusion was stopped. Upon my arrival, patient had received a dose of Dilaudid, and was still having 9/10 pain in abdomen. Motor 5/5, moving all extremities. Epidural tubing intact. Epidural catheter aspirated with no fluid return, then flushed. Unable to clearly see skin entry site. Clinician bolus given off of epidural pump for a total of 10 ml's with pain relief down to 0/10. Pt. then sat on edge of bed with minimal assist and epidural dressing removed. Site cleansed with chloroprep. Catheter noted to be at 10cm instead of 12 cm previously, although there is still 5 cm catheter in epidural space. Mastisol and new dressing applied with clear/clean window. Dressing reinforced with tape. Pt. did say yesterday she noticed some tingling in her pinky and ring finger that had disappeared by this morning. Infusion rate turned down to 7ml/hr and PCEA bolus of 5ml maintained. Will continue epidural for now and plan to wean on Friday or Friday.
--- NOTE | 2020-08-20 15:13 | CMPROGNOTE_ITS ---
- If Service Date Differs Date of service: 08/20/20 Time of Service: 15:13 Care Management Progress Note S/O: Polina was sleeping when CM attempted to meet with her. Per report, she will likely remain at [facility] for a couple more days as she still has an NG tube, epidural and freitas catheter. She will be going home with PARAG drains and will require teaching for care. She may need HH RN upon discharge. CM will continue to follow. A: Polina is a 75 year old female admitted to [facility] on 08/18/20 for Incarcerated incisional hernia. P: Anticipate Polina will return home when medically cleared. CM will coordinate HH RN, if indicated. Her son will drive her home when ready. She will follow up with surgical services, her PCP and discharge plan of care. CM will continue to follow.
[2020-08-21] VITALS (10 sets, daily range): BP systolic 104–144; BP diastolic 56–79; PULSE 55–79; RESP 16–19; TEMP 35.7–37; O2SAT 92–96
[2020-08-21] MEDS: ACETAMINOPHEN 1,000 MG/100 ML BTL 400 MG IVPB ×3 (02:54→17:35)
[2020-08-21] MEDS: Normal Saline Flush 10 ML SYR IVP ×4 (02:54→18:03)
[2020-08-21 07:16] LABS: HCT 32.9 % (36.0-46.0); HGB 10.6 g/dL (11.2-15.7); MCH 31.5 pg (27.0-33.0); MCHC 32.2 % (32.0-36.0); MCV 97.6 fL (80-95); MPV 9.7 fL (8.0-11.0); Platelet Count 137 10^3/uL (130-400); RBC 3.37 10^6/uL (3.93-5.22); RDW 14.5 % (11.7-14.6); RDW-SD 51.1 fL; WBC 5.44 10^3/uL (4.4-10.8)
[2020-08-21 07:25] LABS: Anion Gap 4.8 mmol/L (3-11); BUN 12 mg/dL (7-18); CO2 25.2 mmol/L (21.0-32.0); CREATININE 1.17 mg/dL (0.55-1.02); Calcium 8.3 mg/dL (8.5-10.1); Chloride 107 mmol/L (98-107); Estimated GFR 45.22 (mL/min/1.73m2); Glucose 85 mg/dL (74-106); Magnesium 1.8 mg/dL (1.8-2.4); Potassium 4.5 mmol/L (3.5-5.1); Sodium 137 mmol/L (136-145)
[2020-08-21] MEDS: FentaNYL/ROPIvacaine 2 mcg/ml and 0.1% 200 ML CADD Cassette EP (08:32)
[2020-08-21] MEDS: Pantoprazole 40 MG VIAL IVP (09:19)
[2020-08-21] MEDS: POTASSIUM CHLORIDE/D5-0.45NACL 1,000 ML 100 MEQ IV (09:20)
[2020-08-21] MEDS: Metoprolol CR 25 MG TABCR 12.5 MG PO ×2 (09:20→19:56)
[2020-08-21] MEDS: Nystatin POWDER 15 GM JAR TP ×2 (09:20→19:57)
--- NOTE | 2020-08-21 09:53 | W.PM.PROGNOT ---
Documented by User: MARIVEL Chadwick 08/21/20 10:00 Date of Service Date of service: 08/21/20 Time of Service: 09:53 Assessment and Plan Assessment and plan (1) Yeast dermatitis: Status: Acute (2) GERD (gastroesophageal reflux disease): Status: Acute (3) S/p TAVR (transcatheter aortic valve replacement), bioprosthetic: Status: Acute (4) Incarcerated incisional hernia: Status: Acute Assessment and plan: (+) Flatus Denies nausea or vomiting Will trial Clamping NG tube and check residuals again today Drains: bloody serous drainage. These will most likely need to remain in place at discharge. Encouraged ambulation and activities out of bed as tolerated Deep breathing and use of incentive spirometer. Epidural in place, offering good pain control Freitas in place. Continue supportive care (5) Hypertension: Status: Chronic Subjective Subjective Interval history since last seen: Polina reports she is feeling well today. Denies any abdominal pain at this time. She reports overnight she was passing flatus. Exam Const General: cooperative and comfortable Orientation: alert and oriented x3 Resp Effort & Inspection: normal respiratory effort, no audible wheezes and no cough GI Inspection: normal to inspection, incision (Midline incision) and other (Drains- bloody, serous drainage) Palpation: soft, no guarding and tender Objective Last Vital Signs Temp 36.7 C 08/21/20 07:21 Pulse 64 08/21/20 07:21 Resp 19 08/21/20 07:21 BP 132/75 08/21/20 07:21 Pulse Ox 93 08/21/20 07:21 Laboratory Results - last 24 hr 08/21/20 08/21/20 06:50 06:50 WBC 5.44 RBC 3.37 L Hgb 10.6 L Hct 32.9 L MCV 97.6 H MCH 31.5 MCHC 32.2 RDW 14.5 Plt Count 137 MPV 9.7 Sodium 137 Potassium 4.5 Chloride 107 Carbon Dioxide 25.2 Anion Gap 4.8 BUN 12 D Creatinine 1.17 H Estimated GFR/1.73 m2 45.22 Glucose 85 Calcium 8.3 L Magnesium 1.8 Documented by User: Stacie Meier Rhett, 08/21/20 15:32 Assessment and Plan Assessment and plan (1) Incarcerated incisional hernia: Status: Acute Assessment and plan: pt seen and examined. Agree w/ above -clamped NGT -there was some minimal redness around the epidural cath- so this was removed. tip adn was cultured. There was scant amount of drainage upon removal and this was cultured as well. pt is not on abx. Do not seen indication at this time. pt is Neuro intact. -d/c freitas cath after 4pm today -resume lovenox at 2am 08/22. -pt WILL go home w/ PARAG drains in place. She needs PARAG training and home RN. notified CM. -fluids changed. -walk
--- NOTE | 2020-08-21 10:26 | PHA.REVIEW ---
Pharmacy Admission Review - Admission Clinical Review (Last Updated 08/19/20 @ 13:41 by Stacie Delaney DO) Incarcerated incisional hernia (Acute) Yeast dermatitis (Acute) GERD (gastroesophageal reflux disease) (Acute) Adenocarcinoma of right breast (Acute) S/p TAVR (transcatheter aortic valve replacement), bioprosthetic (Acute) Cancer of ascending colon metastatic to intra-abdominal lymph node (Acute) History of aortic valve replacement with bioprosthetic valve (Acute) Recurrent ventral hernia (Acute) morphine Allergy (Intermediate, Unverified 08/18/20 14:49) Hives Height 5 ft 1 in Weight 71.214 kg - Renal Dosing Renal Dosing: BUN 12 mg/dL (7-18) D 08/21/20 06:50 Creatinine 1.17 mg/dL (0.55-1.02) H 08/21/20 06:50 Medications needing adjustments: Reviewed (CrCl based on abw: ~38.1ml/min) List of meds needing interventions: If lovenox is restarted could change dose to 40mg for DVT prophylaxis (order is currently on hold) - Anticoagulation Anticoagulation: Hgb 10.6 g/dL (11.2-15.7) L 08/21/20 06:50 Hct 32.9 % (36.0-46.0) L 08/21/20 06:50 Plt Count 137 10^3/uL (130-400) 08/21/20 06:50 Creatinine 1.17 mg/dL (0.55-1.02) H 08/21/20 06:50 DVT Prohphylaxis: Reviewed Medications: Enoxaparin Therapeutic Anticoagulation: N/A - Opiate Usage Evaluate Pain Scale/Pains Meds: Reviewed (PRN, pain control mostly with epidural) Scheduled Bowel Reg ordered if on Opiates?: No - Relevant Labs Sodium 137 mmol/L (136-145) 08/21/20 06:50 Potassium 4.5 mmol/L (3.5-5.1) 08/21/20 06:50 Chloride 107 mmol/L (98-107) 08/21/20 06:50 Magnesium 1.8 mg/dL (1.8-2.4) 08/21/20 06:50 Electrolytes, C-Reactive P, ESR: Reviewed (Notified provider to review fluid order that contains 20meq K+ as level is at 4.5 today -- order placed on hold) - DM Control DM Control: Glucose 85 mg/dL (74-106) 08/21/20 06:50 Insulin Dosing: Reviewed - Heart Failure/KS Heart Failure/KS: NT-Pro-B Natriuret Pep 3340 pg/mL (<300) H 08/19/20 07:57 EF%, EDD's, B-Blockers, Diuretics: Reviewed - BP Control BP Control: Blood Pressure 144/77 Blood Pressure 132/75 Blood Pressure 120/64 Blood Pressure 136/77 Blood Pressure 104/66 Blood Pressure 120/62 If elevated: Reviewed - Qtc Review If Elevated: N/A - IV to PO Switch IV Medications: Reviewed - Home Meds Home Med List reviewed: Reviewed Relevent Home Meds Not ordered & why?: aspirin - Current meds Current Medication Order Review: Reviewed
--- NOTE | 2020-08-21 14:12 | ANES_ITS ---
Anesthesia Note Daily Management of Epidural 08/21/2020 Pt resting comfortably in bed watching TV. Polina states that her pain is a 0/10 except when moving around in bed or walking in rayo. In those instances its a 3- 4/10 and quickly resolves when she stops the activity. Motor strength 5/5. Upon assessment of the epidural site, the entrance site is pnk and very slightly ra ised. No puss or exudate noted. Pt is afebrile. Lovenox has been held for since Friday. Discussed pt course with Dr. Delaney and we both agree to DC the epidural catheter. Epidural catheter was DCed with the blue tip intact by Valerie Castellano RN, with myself and Dr. Delaney present. Epidural catheter tip and epidural site drainage sent for culture to lab. Pt is going to get up and walk right now with Physical Therapy.
[2020-08-21] MEDS: DEXTROSE 5%-0.45% SALINE 1,000 ML 100 ML IV (15:09)
--- NOTE | 2020-08-21 15:17 | CHAPLAIN ---
Polina was resting in bed when I visited. She said she is feeling much more comfortable than she was this morning, but is not feeling great. She did not seem interested in a longer conversation, but I'll try again tomorrow.
--- NOTE | 2020-08-21 15:50 | PT.INTREAT ---
Date of service: 08/21/20 Time of Service: 15:50 PT Notes Visit Reasons: INCARCERATED INCISIONAL HERNIA Inpatient Physical Therapy Treatment Note [facility] Date: 08/21/2020 PRECAUTIONS: Fall SUBJECTIVE: Polina is agreeable to participating in PT. She states that she is feeling better today, although still has some pain. OBJECTIVE: Patient sat up in chair x20 minutes in a.m. Held further PT in p.m. due to c/o increased nausea and fluid in throat with activity. PAIN: No c/o pain BED MOBILITY/TRANSFERS Supine-sit: S with HOB at 40 degrees Sit-supine: S with HOB at 20 degrees Sit-stand: SBA Stand-sit: SBA GAIT Assistive Device: FWW Weight bearing: Full Assist: SBA Distance: 60' in a.m.; 30' in p.m. THEREX: Patient was instructed in a LE strengthening program, in a long-sitting position, as per flow sheet. She requires verbal and visual cueing for proper exercise performance. ASSESSMENT: Patient tolerated a progression in gait distance, well, with FWW support and SBA. She would benefit from continued gait training and global strengthening for improved mobility and progression toward independence with functional daily tasks. PLAN: Continue with gait training and global strengthening TREATMENT CODE/TIME: Session 1: 40 minutes; 23344 x2, [id number] Session 2: 10 minutes; 12028
[2020-08-21] MEDS: Ketorolac 15 MG/ML VIAL IVP ×2 (16:16→21:40)
--- NOTE | 2020-08-21 17:27 | PDOC.CMPRO ---
- If Service Date Differs Date of service: 08/21/20 Time of Service: 17:27 Care Management Progress Note S/O: Polina was resting when CM met with her, but she woke up to speak with CM. She reported that she is happy to have her word search book because she has been bored here. She stated that she is tired because she wasn't able to sleep well last night. She still has an NG tube, and per report, this may be removed later today. CM will continue to follow. A: Polina is a 75 year old female admitted to [facility] on 08/18/20 for Incarcerated incisional hernia. P: Anticipate Polina will return home when medically cleared. CM will coordinate HH RN, if indicated. Her son will drive her home when ready. She will follow up with surgical services, her PCP and discharge plan of care. CM will continue to follow.
[2020-08-21] MEDS: Sennosides/Docusate Sodium TAB 1 TAB PO (19:56)
[2020-08-22] MEDS: DEXTROSE 5%-0.45% SALINE 1,000 ML 100 ML IV ×2 (00:35→08:52)
[2020-08-22] MEDS: Ondansetron 4 MG/2 ML VIAL IVP ×4 (00:43→20:02)
[2020-08-22] MEDS: HYDROmorphone 2 MG/ML VIAL 0.5 MG IVP ×4 (00:43→20:03)
[2020-08-22] MEDS: ACETAMINOPHEN 1,000 MG/100 ML BTL 400 MG IVPB ×3 (02:45→17:33)
[2020-08-22] MEDS: Enoxaparin 40 MG/0.4 ML SYR SC ×2 (02:45→08:36)
[2020-08-22] MEDS: Ketorolac 15 MG/ML VIAL IVP ×4 (04:11→21:52)
[2020-08-22 07:19] LABS: HCT 35.3 % (36.0-46.0); HGB 11.2 g/dL (11.2-15.7); MCH 30.6 pg (27.0-33.0); MCHC 31.7 % (32.0-36.0); MCV 96.4 fL (80-95); MPV 9.6 fL (8.0-11.0); Platelet Count 163 10^3/uL (130-400); RBC 3.66 10^6/uL (3.93-5.22); RDW 14.2 % (11.7-14.6); RDW-SD 50.1 fL; WBC 6.08 10^3/uL (4.4-10.8)
[2020-08-22 07:53] VITALS: BP 152/78; PULSE 65; RESP 17; TEMP 36.7; O2SAT 96
[2020-08-22] MEDS: Pantoprazole 40 MG VIAL IVP (08:36)
[2020-08-22] MEDS: Normal Saline Flush 10 ML SYR IVP ×4 (08:36→16:11)
[2020-08-22] MEDS: Metoprolol CR 25 MG TABCR 12.5 MG PO ×2 (08:37→19:54)
[2020-08-22] MEDS: Nystatin POWDER 15 GM JAR TP ×2 (08:37→19:54)
[2020-08-22] MEDS: Sennosides/Docusate Sodium TAB 1 TAB PO (08:37)
[2020-08-22 09:11] LABS: Iron 33 ug/dL (50-170); Total Iron Binding Capacity 211 ug/dL (250-450); Transferrin Sat 16 % (15-50)
--- NOTE | 2020-08-22 09:21 | W.PM.PROGNOT ---
Date of Service Date of service: 08/22/20 Time of Service: :21 Assessment and Plan Assessment and plan (1) Yeast dermatitis: Status: Acute (2) GERD (gastroesophageal reflux disease): Status: Acute (3) S/p TAVR (transcatheter aortic valve replacement), bioprosthetic: Status: Acute (4) Incarcerated incisional hernia: Status: Acute Assessment and plan: (+) Flatus and BMs x 2 (loose, diarrhea) Denies nausea or vomiting NG tube was clamped yesterday, which she did not tolerate. Will clamp NG tube again this morning and check residuals around noon. NG output was 150mL overnight, this in addition to (+) BM and good bowel sounds, if she does not have any nausea or vomiting following clamping will remove NG and start to progress her diet. Drains: bloody serous drainage. These will most likely need to remain in place at discharge. Encouraged ambulation and activities out of bed as tolerated Deep breathing and use of incentive spirometer. Urinating without difficulty since freitas was d/c Continue supportive care (5) Hypertension: Status: Chronic Subjective Subjective Interval history since last seen: Continues to be NPO, with ice chips only. She reports having 2 BMs overnight and this morning, which were loose. Denies nausea or vomiting. Pain is well controlled at this time. Exam Const General: cooperative, healthy appearing and comfortable Orientation: alert and oriented x3 Resp Effort & Inspection: normal respiratory effort, no audible wheezes and no cough GI Inspection: normal to inspection and incision (Midline incision) Palpation: soft, guarding and tender Auscultation: normal bowel sounds Objective Last Vital Signs Temp 36.7 C 08/22/20 07:53 Pulse 65 08/22/20 07:53 Resp 17 08/22/20 07:53 BP 152/78 H 08/22/20 07:53 Pulse Ox 96 08/22/20 07:53 Laboratory Results - last 24 hr 08/22/20 06:35 WBC 6.08 RBC 3.66 L Hgb 11.2 Hct 35.3 L MCV 96.4 H MCH 30.6 MCHC 31.7 L RDW 14.2 Plt Count 163 MPV 9.6
[2020-08-22 09:24] LABS: Ferritin 169 ng/mL (8-252)
--- NOTE | 2020-08-22 10:24 | W.NUTCONSULT ---
Date of service: 08/22/20 Time of Service: 10:24 Nutritional Consult ASSESSMENT: 75 year old female s/p surgery for incarcerated hernia. PMH: metatstatic colon cancer, h/o of breast CA, CHF. BMI indicates mild obesity. Has been NPO x 4 days however nursing reports had BM today and expect diet to be advanced. Met with Polina today, continues with NG tube with drainage. She reports with hunger. At nutritional risk in view of multiple days NPO. Estaimted Needs: [id number] kcal, 55-65 g protein. NUTRITIONAL DIAGNOSIS: inadequate nutrient intake due to extended NPO status s/p surgery for incarcerated hernia INTERVENTION: NPO until cleared by surgery expect diet to be advanced today MONITORING AND EVALUATION: diet advancement, po intake, labs, weight Time Spent in Nutritional Counseling and Treatment: 5 min spent face to face
--- NOTE | 2020-08-22 11:23 | PT.INTREAT ---
Date of service: 08/22/20 Time of Service: 11:23 PT Notes Visit Reasons: INCARCERATED INCISIONAL HERNIA Inpatient Physical Therapy Treatment Note [facility] Date: 08/22/2020 PRECAUTIONS: Fall SUBJECTIVE: Polina is agreeable to participating in PT. She states that she is feeling much better today, although notes that her throat continues to fill up. OBJECTIVE: PAIN: No c/o pain BED MOBILITY/TRANSFERS Supine-sit: I Sit-supine: I Sit-stand: S in a.m.; I in p.m. Stand-sit: S in a.m.; I in p.m. Bed-chair: S in a.m.; I in p.m. Chair-bed: S in a.m.; I in p.m. GAIT Assistive Device: FWW Weight bearing: Full Assist: S Distance: 75' x2 in a.m.; 240' in p.m. THEREX: Patient was instructed in several LE strengthening exercises, in a seated position in a.m. and in a standing position in p.m., as per flow sheet. She requires verbal and visual cueing for proper exercise performance. TOILETING: Patient toileted with supervision for transfers in a.m.; patient toileted independently in p.m. ASSESSMENT: Patient tolerated a progression in gait distance, well, with FWW support and supervision. She would benefit from continued gait training and global strengthening for improved mobility and progression toward independence with functional daily tasks. PLAN: Continue with gait training and global strengthening TREATMENT CODE/TIME: Session 1: 20 minutes; [id number] Session 2: 30 minutes; [id number], [id number]
--- NOTE | 2020-08-22 11:51 | CMPROGNOTE_ITS ---
- If Service Date Differs Date of service: 08/22/20 Time of Service: 11:51 Care Management Progress Note S/O: Polina remains acute no change in the plan of care today. CM reviewed clinical chart Polina did not tolerate the NG clamping last evening they will attempt again today. She is not ready for discharge at this time. She remains on IV pain management and NPO with ice chips. A: Polina is a 75 year old female admitted to [facility] on 08/18/20 for Incarcerated incision hernia. P: Anticipate Polina will return home when medically cleared. CM will coordinate HH RN, if indicated. Her son will drive her home when ready. She will follow up with surgical services, her PCP and discharge plan of care. CM will continue to follow.
--- NOTE | 2020-08-22 14:34 | CHAPLAIN ---
I had short visit with Polina while she was resting in bed. Her NG tube was removed and she said she's feeling some better, but has not eaten anything yet. She added that she's not hungry, so she feels okay. She shared some personal history, telling me about raising seven children.
[2020-08-22 16:04] VITALS: BP 136/78; PULSE 68; RESP 18; TEMP 36.6; O2SAT 96
[2020-08-22] MEDS: DEXTROSE 5%-0.45% SALINE 1,000 ML 80 ML IV (18:43)
[2020-08-22] MEDS: Psyllium PKT 1 EACH PO (19:54)
[2020-08-22] MEDS: Lactobacillus Acidophilus CAP 1 CAP PO (19:54)
[2020-08-22 21:12] VITALS: BP 110/68; PULSE 65; RESP 18; TEMP 36.6; O2SAT 95
[2020-08-23] MEDS: HYDROmorphone 2 MG/ML VIAL 0.5 MG IVP (03:13)
[2020-08-23] MEDS: ACETAMINOPHEN 1,000 MG/100 ML BTL 400 MG IVPB (03:13)
[2020-08-23] MEDS: Ondansetron 4 MG/2 ML VIAL IVP (03:14)
[2020-08-23] MEDS: Ketorolac 15 MG/ML VIAL IVP ×4 (04:40→21:58)
[2020-08-23] MEDS: DEXTROSE 5%-0.45% SALINE 1,000 ML 80 ML IV (06:32)
[2020-08-23 07:31] VITALS: BP 133/77; PULSE 59; RESP 18; TEMP 36.4; O2SAT 96
--- NOTE | 2020-08-23 07:43 | W.PM.PROGNOT ---
Documented by User: MARIVEL Chadwick 08/23/20 08:04 Date of Service Date of service: 08/23/20 Time of Service: 07:43 Assessment and Plan Assessment and plan (1) Yeast dermatitis: Status: Acute (2) GERD (gastroesophageal reflux disease): Status: Acute (3) S/p TAVR (transcatheter aortic valve replacement), bioprosthetic: Status: Acute (4) Incarcerated incisional hernia: Status: Acute Assessment and plan: POD #5 s/p incarcerated ventral hernia NG tube has been removed. Denies nausea or vomiting Drains: drainage decreasing, bloody serous drainage. She has been participating in drain education with the [facility] [place] and she has been emptying her drain herself. She tolerated her first regular meal. Per the patient she did not eat much. Encouraged ambulation and activities out of bed as tolerated Deep breathing and use of incentive spirometer. Urinating without difficulty P// If she continues to tolerate the regular diet. D/C home later today or tomorrow. (5) Hypertension: Status: Chronic Subjective Subjective Interval history since last seen: Tolerating regular diet. Denies any nausea or vomiting. No BMs since yesterday. Abdomen is tender to palpation, otherwise pain is well controlled. Exam Const General: cooperative, healthy appearing and comfortable Orientation: alert and oriented x3 Resp Effort & Inspection: normal respiratory effort, no audible wheezes and no cough GI Inspection: normal to inspection and incision (Midline) Palpation: soft, no guarding and tender (generalized) Objective Last Vital Signs Temp 36.4 C L 08/23/20 07:31 Pulse 59 L 08/23/20 07:31 Resp 18 08/23/20 07:31 BP 133/77 08/23/20 07:31 Pulse Ox 96 08/23/20 07:31 Laboratory Results - last 24 hr 08/22/20 08/22/20 06:35 06:35 Iron 33 L TIBC 211 L Transferrin % Sat 16 Ferritin 169 Documented by User: Stacie Delaney DO 08/23/20 14:08 Assessment and Plan Assessment and plan (1) Incarcerated incisional hernia: Status: Acute Assessment and plan: pt seen and examined. agree w/ above Plan d/c home in am w/ PARAG.
[2020-08-23] MEDS: Enoxaparin 40 MG/0.4 ML SYR SC (08:22)
[2020-08-23] MEDS: Lactobacillus Acidophilus CAP 1 CAP PO ×3 (08:22→20:05)
[2020-08-23] MEDS: Psyllium PKT 1 EACH PO ×2 (08:22→20:08)
[2020-08-23] MEDS: Nystatin POWDER 15 GM JAR TP ×2 (08:22→20:07)
[2020-08-23] MEDS: Metoprolol CR 25 MG TABCR 12.5 MG PO ×2 (08:22→20:05)
[2020-08-23] MEDS: Acetaminophen 325 MG TAB 650 MG PO (08:35)
[2020-08-23] MEDS: traMADol 50 MG TAB PO ×2 (09:28→15:41)
[2020-08-23] MEDS: Normal Saline Flush 10 ML SYR IVP ×3 (09:29→16:51)
--- NOTE | 2020-08-23 12:37 | PTTR_ITS ---
Date of service: 08/23/20 Time of Service: 12:37 PT Notes Visit Reasons: INCARCERATED INCISIONAL HERNIA Inpatient Physical Therapy Treatment Note [facility] Date: 08/23/2020 PRECAUTIONS: Fall SUBJECTIVE: Polina reports that she continues to feel better, and reports that her diet has been advanced to solid food and that she feels she is tolerating it well. OBJECTIVE: PAIN: No c/o pain BED MOBILITY/TRANSFERS Supine-sit: I Sit-supine: I Sit-stand: I Stand-sit: I Bed-chair: I Chair-bed: I GAIT Assistive Device: No AD FWW SPC Weight bearing: Full Assist: SBA without AD I with FWW S with SPC Distance: 50' without AD 100' + 200' with FWW 50' with SPC Deviation: Unsteady without AD, increased back discomfort without AD and with SPC versus FWW THEREX: Patient was instructed in a LE strengthening program, in a standing position in p.m., as per flow sheet. She requires verbal and visual cueing for proper exercise performance, utilizing FWW support and supervision. STAIRS: Up/down 3x4 and 2x6 using B rails and a step-over pattern, independe ntly. ASSESSMENT: Patient tolerated a progression in gait distance, well, with FWW support, demonstrating steady gait and pacing at an independent level. She demonstrates mild unsteadiness with use of SPC and without assistive device support, requiring supervision and SBA, respectively. She would benefit from continued gait training with SPC and without use of assistive device for improved mobility and continued progression toward independence and baseline level of function. PLAN: Continue with gait training with least restrictive device TREATMENT CODE/TIME: 35 minutes; 19831, 22812
--- NOTE | 2020-08-23 14:39 | PDOC.HHF2F ---
Home Health Certification Home Health Certification: 1. Encounter Date and Reason I certify that ANJALI GONZALES was seen by Stacie Delaney on 08/23/20 and that I had a [id number] encounter with this patient that meets the physician face to face encounter requirements. 2. Clinical Findings Supporting Skilled Need and Homebound Status I certify that home health services are medically necessary, include either intermittent nursing home and/or physical/speech therapy, and that this patient is homebound in that absences from the home require considerable and taxing effort and are infrequent or of short duration, or are attributable to the need to receive medical care. [X] (a) Attached documentation from encounter provides clinical findings supporting skilled need and homebound status (including what assistance patient requires to leave the home). The encounter with the patient was in whole, or in part, for the following medical condition, which is the primary reason for home health care: INCARCERATED INCISIONAL HERNIA Usp:pt requires home RN for drain care Physical Therapy: Speech Therapy: Homebound:pt does not drive and is home bound 3. Certification and Authentication I certify that I composed the above information based on my clinical judgement relating to this patient's medical condition and, if applicable, clinical findings communicated to me by the NPP or inpatient physician who performed the Home Health Referral. All further orders will be obtained through (Community Based Physician - PCP)
[2020-08-23 15:37] VITALS: BP 137/80; PULSE 67; RESP 19; TEMP 36.5; O2SAT 97
--- NOTE | 2020-08-23 15:46 | PDOC.CMPRO ---
- If Service Date Differs Date of service: 08/23/20 Time of Service: 15:46 Care Management Progress Note S/O: Polina was sitting up in bed when CM met with her. Her NG tube has been removed, making her more comfortable. She reported that she was able to eat a small amount of food today. CM discussed her going home with a PARAG drain, which she stated that she is comfortable with, as her RN has taught her how to care for it. Per MD, she will return home tomorrow with new HH RN for drain care. CM will continue to follow. A: Polina is a 75 year old female admitted to [facility] on 08/18/20 for Incarcerated incision hernia. P: Anticipate Polina will return home when medically cleared. CM will coordinate HH RN, if indicated. Her son will drive her home when ready. She will follow up with surgical services, her PCP and discharge plan of care. CM will continue to follow.
--- NOTE | 2020-08-23 16:23 | DSE_ITS ---
Date of service: 08/24/20 Time of Service: 10:00 DS: Diagnosis Discharge Diagnosis (1) Incarcerated incisional hernia: Status: Acute Discharge Plan Disposition Patient Disposition: HOME Condition: Stable Discharge Details Reason For Visit: INCARCERATED INCISIONAL HERNIA Admit Date/Time: 08/18/20 23:47 Admit Provider: Stacie Delaney Attending Provider: Stacie Delaney Primary Care Provider: Tiana Romano Hospital Course Hospital Course: Patient came to the emergency department on 918 complaining of acute abdominal pain. She had a known history of an incisional hernia. CT revealed she had an acute incarcerated incisional hernia that did contain colon and did not reduce with conservative medical management. Please see H&P for complete past medical details. Patient was taken to the OR for acute hernia repair. Please see the operative report for complete past surgical details. Postop she is admitted to medical surgical unit with an epidural for pain control. She did well and progressed along a normal course. There is no wound infections there is no signs of pneumonia. There is no cardiac problems. There is no bleeding problems. There is no DVTs. Patient at the time of discharge patient is tolerating a regular diet. She is ambulatory. She has no fever or chills. She is going home with [address] of her [address] drains in place and has home RN and home PT she has a cane and a walker. She will follow-up with myself in the clinic next Friday and hopefully will be able to remove her drain. Patient is given instructions in wound care activity warning signs and how to use her pain medication. She has any questions or concerns please contact the office. Patient is discharged in stable satisfactory condition. Home Meds and New Rx's Prescriptions: New nystatin 100,000 unit/gram powder See Rx Instructions .ROUTE .COMPLEX 33 Days RF: 3 tramadol 50 mg Tablet 50 mg PO Q4H PRN PRNQty: 10 RF: 0 Metamucil Sugar-Free (aspart) 3.4 gram/5.8 gram Powder 1 ea PO BID 99 Days Qty: 450 RF: 13 Continued metoprolol succinate 25 mg Tablet Extended Release 24 Hr 12.5 mg PO BID Qty: 30 RF: 0 omeprazole 20 mg capsule,delayed release(DR/EC) 20 mg PO PRN PRNRF: 0 Discontinued aspirin [Aspirin Low Dose] 81 mg Tablet,Delayed Release (Dr/Ec) 81 mg PO DAILY Qty: 30 RF: 0 Discharge Instructions Additional Instructions: Keep an ice bag on the incision. 20 minutes on and 20 minutes off. Ice keeps the swelling down and swelling causes pain. Make sure you wrap the ice pack in a towel and don't apply directly to the skin. -No driving x1 week or of you are taking pain medications. -If you have renetta or sutures in place, they will be removed at your clinic appointment in 7-10 days. -Do Not remove any steri tapes (white tapes) that cover the incision. If you have steri-tapes on your incision, do not use antibacterial ointment. -Follow-up with Dr. Delaney in 1 week. -No restrictions on diet -no straining to move bowels -pain meds are very constipating: if you do not move your bowels daily take a dose of OTC milk of magnesia or Miralax -It is ok to shower. No bathe, soaking, swimming or hot tubs -Keep wound clean and dry. Wash incision with soap and water daily. Pat dry, don't rub. -If you do not have steri-tapes on your incision, than keep the wound covered with a gauze and antibacterial ointment. -Protein supplements daily. You may find that your appetite is smaller. Eat 3-6 small meals throughout the day. It is important to drink lots of water after surgery, 6-10 glasses a day. -If you were given an incentive spirometry (breathing transportation planning technician?), continue to do this 10x/hour while awake. -We do want you up walking, at least 5-6 times per day. This is very important to prevent pneumonia and blood clots. You can climb stairs, take them slowly. -No lifting over 5 pounds. This is very important to avoid developing a hernia in your incision. -You may find that you are very tired after surgery- this is normal. -please do not smoke for a minimum of 72 hours after surgery. -Empty your drain twice a day and record the output. Please bring these numbers to your follow-up appoinment w/ your surgeon. -Follow up with your Primary Provider in 1-2 wks for routine check-up. -hold on ASA for 2wks. Than will have you resume this once the PARAG is out. Stand Alone Forms: Nursing Discharge Form Referrals: Stacie Delaney DO [OSTEOPATHIC DOCTOR] - 09/01/20 9:30 am Activity:: no lifting over 5#'s x 2w Equipment/Supplies:: No Equipment Needed Diet:: As Tolerated DS: Summary Status at Discharge Functional status at discharge: uses cane/walker Overall status at discharge: patient is back to baseline Mental Status: mental status grossly normal Speech and Movement: speech and movement normal Mood: congruent mood Affect: normal affect Exam Psych Mental Status: mental status grossly normal Speech and Movement: speech and movement normal Mood: congruent mood Affect: normal affect DS: Data Vitals/I&O Vitals and I&O: Vital Signs Temperature 36.5 C 08/23/20 15:37 Temperature Source Tympanic 08/23/20 15:37 Pulse 67 08/23/20 15:37 Pulse Rhythm Regular 08/23/20 14:53 Pulse 89 08/18/20 19:31 Respiratory Rate 19 08/23/20 15:37 Respiratory Effort Non-Labored 08/23/20 14:53 Respiratory Depth Normal 08/23/20 14:53 Respiratory Pattern Normal 08/23/20 14:53 Blood Pressure 137/80 08/23/20 15:37 Blood Pressure Mean 62 08/18/20 19:00 Pulse Oximetry 97 08/23/20 15:37 Oxygen Delivery Method Room Air 08/23/20 15:37 Oxygen Flow Rate 0 08/23/20 15:37 Pain Level 8 08/23/20 15:42 Comment 08/23/20 14:53 Intake & Output 08/22/20 08/23/20 08/23/20 23:59 11:59 23:59 Intake Total 1383.666 / 3355.332 1425.333 / 1665.333 240 / 1665.333 Output Total 585 / 1915 820 / 1925 1105 / 1925 Balance 798.666 / 1440.332 605.333 / -259.667 -865 / -259.667 Intake: IV 1023.666 / 2995.332 945.333 / 945.333 Oral 360 / 360 480 / 720 240 / 720 Output: Drainage 35 / 65 20 / 50 30 / 50 #2 50 30 / 50 Mid Anterior Medial Abdomen 25 / 50 Urine 400 / 1550 800 / 1875 1075 / 1875 Stool 150 / 150 Other: Urine Color Yellow Yellow Pale Yellow Urine Appearance Clear Clear Clear Urine Odor Normal Normal Comment Void x1 in the bedside commode. Mixed with stool; RN unable to determine urine amount. Void x1 in the toilet. Stool Size Small Small Small Stool Characteristics Liquid Soft Soft Brown Liquid Brown Voiding Methods Toilet Toilet Toilet Data Completed and Pending Labs on day of discharge: Preliminary micro results at discharge 08/21/20 14:39 Wound Culture - Preliminary Foot - Left 08/21/20 14:45 Catheter Tip Culture - Preliminary Tip/Tube [facility] Medical History (Updated 08/19/20 @ 13:41 by Stacie Delaney DO) Acute CHF prior to TAVR. none since then Adenocarcinoma of right breast s/p Lumpectomy Advance directive on file Anemia Aortic stenosis, severe s/p TAVR Cancer of ascending colon metastatic to intra-abdominal lymph node S/p Right hemicolectomy Factitious hyperthyroidism GERD (gastroesophageal reflux disease) H/O malignant neoplasm of breast H/O malignant neoplasm of colon Hypertension Hypertension Hypomagnesemia Incarcerated incisional hernia Normocytic anemia Severe aortic stenosis s/p TAVR UTI (urinary tract infection) Yeast dermatitis Surgical History (Updated 08/19/20 @ 00:01 by Stacie Delaney DO) H/O cardiac catheterization H/O colonoscopy H/O heart valve replacement with porcine valve History of esophagogastroduodenoscopy (EGD) History of ventral hernia repair 07/01/19 at [facility] [place] S/P cholecystectomy S/P right hemicolectomy S/p TAVR (transcatheter aortic valve replacement), bioprosthetic Status post closure of ileostomy Status post right breast lumpectomy Family History Mother Stroke Hypertension Son Diabetes type 2 Son Diabetes type 2 Father Cancer lung cancer - smoker Brother Cancer unknown type Social History Smoking/Tobacco Use Status: Former Tobacco Use Pack-years: 141 Tobacco: How many years used: 47 Alcohol Intake: current Alcohol Intake frequency: a few times a month Drug use: Never Substance use type: does not use Do you feel safe at home: Yes Do you feel safe in your relationship?: Yes
[2020-08-23] MEDS: Normal Saline Flush 10 ML SYR 20 ML IVP (20:04)
[2020-08-23 23:15] VITALS: BP 114/60; PULSE 71; RESP 18; TEMP 36.6; O2SAT 95
[2020-08-24] MEDS: Ketorolac 15 MG/ML VIAL IVP ×2 (03:41→09:51)
[2020-08-24] MEDS: Normal Saline Flush 10 ML SYR IVP ×2 (03:41→09:52)
[2020-08-24] MEDS: Normal Saline Flush 10 ML SYR 20 ML IVP (07:23)
[2020-08-24] MEDS: Enoxaparin 40 MG/0.4 ML SYR SC (07:24)
[2020-08-24] MEDS: Lactobacillus Acidophilus CAP 1 CAP PO (07:25)
[2020-08-24] MEDS: Acetaminophen 325 MG TAB 650 MG PO (07:25)
[2020-08-24] MEDS: Psyllium PKT 1 EACH PO (07:25)
[2020-08-24] MEDS: Metoprolol CR 25 MG TABCR 12.5 MG PO (07:26)
[2020-08-24 07:51] VITALS: BP 144/86; PULSE 76; RESP 16; TEMP 36.5; O2SAT 93
--- NOTE | 2020-08-24 08:03 | W.PM.PROGNOT ---
Documented by User: MARIVEL Chadwick 08/24/20 08:06 Date of Service Date of service: 08/24/20 Time of Service: 08:04 Assessment and Plan Assessment and plan (1) Yeast dermatitis: Status: Acute (2) GERD (gastroesophageal reflux disease): Status: Acute (3) S/p TAVR (transcatheter aortic valve replacement), bioprosthetic: Status: Acute (4) Incarcerated incisional hernia: Status: Acute Assessment and plan: POD #6 s/p incarcerated ventral hernia Denies nausea or vomiting Drains: drainage decreasing, bloody serous drainage. Tolerating regular diet D/C home later today (5) Hypertension: Status: Chronic Subjective Subjective Interval history since last seen: She reports mild abdominal tenderness this morning. Tolerating regular diet. (+) BM this morning. Exam Const General: cooperative, healthy appearing and comfortable Orientation: alert and oriented x3 Resp Effort & Inspection: normal respiratory effort, no audible wheezes and no cough GI Inspection: normal to inspection and incision (midline. Drain in place; bloody serous fluid) Palpation: soft, no guarding and tender in the epigastrum Auscultation: normal bowel sounds Objective Last Vital Signs Temp 36.5 C 08/24/20 07:51 Pulse 76 08/24/20 07:51 Resp 16 08/24/20 07:51 BP 144/86 H 08/24/20 07:51 Pulse Ox 93 08/24/20 07:51 Documented by User: Stacie Delaney DO 08/24/20 11:08 Assessment and Plan Assessment and plan (1) Incarcerated incisional hernia: Status: Acute Assessment and plan: Patient seen and examined. Agree with above. Patient will be discharged home today I discussed with the patient wound care, activity, warning signs, and drain care. I will see her back in clinic on Friday
[2020-08-24] MEDS: Nystatin POWDER 15 GM JAR TP (10:19)
--- NOTE | 2020-08-24 11:22 | PDOC.HHF2F ---
Home Health Certification Home Health Certification: 1. Encounter Date and Reason I certify that ANJALI GONZALES was seen by Stacie Delaney on 08/24/20 and that I had a [id number] encounter with this patient that meets the physician face to face encounter requirements. 2. Clinical Findings Supporting Skilled Need and Homebound Status I certify that home health services are medically necessary, include either intermittent jail and/or physical/speech therapy, and that this patient is homebound in that absences from the home require considerable and taxing effort and are infrequent or of short duration, or are attributable to the need to receive medical care. [X] (a) Attached documentation from encounter provides clinical findings supporting skilled need and homebound status (including what assistance patient requires to leave the home). The encounter with the patient was in whole, or in part, for the following medical condition, which is the primary reason for home health care: INCARCERATED INCISIONAL HERNIA Shelter:drain care Physical Therapy: strength/gait Speech Therapy: Homebound: 3. Certification and Authentication I certify that I composed the above information based on my clinical judgement relating to this patient's medical condition and, if applicable, clinical findings communicated to me by the NPP or inpatient physician who performed the Home Health Referral. All further orders will be obtained through (Community Based Physician - PCP)
--- NOTE | 2020-08-24 11:37 | DSE_ITS ---
DS: Diagnosis Discharge Diagnosis (1) Incarcerated incisional hernia: Status: Acute Discharge Plan Disposition Patient Disposition: HOME Condition: Stable Discharge Details Reason For Visit: INCARCERATED INCISIONAL HERNIA Admit Date/Time: 08/18/20 23:47 Admit Provider: Stacie Delaney Attending Provider: Stacie Delaney [facility] Hospital Course: Patient came to the emergency department on 918 complaining of acute abdominal pain. She had a known history of an incisional hernia. CT revealed she had an acute incarcerated incisional hernia that did contain colon and did not reduce with conservative medical management. Please see H&P for complete past medical details. Patient was taken to the OR for acute hernia repair. Please see the operative report for complete past surgical details. Postop she is admitted to medical surgical unit with an epidural for pain control. She did well and progressed along a normal course. There is no wound infections there is no signs of pneumonia. There is no cardiac problems. There is no bleeding problems. There is no DVTs. Patient at the time of discharge patient is tolerating a regular diet. She is ambulatory. She has no fever or chills. She is going home with [address] of her PAR[address] drains in place and has home RN and home PT she has a cane and a walker. She will follow-up with myself in the clinic next Friday and hopefully will be able to remove her drain. Patient is given instructions in wound care activity warning signs and how to use her pain medication. She has any questions or concerns please contact the office. Patient is discharged in stable satisfactory condition. Home Meds and New Rx's Prescriptions: New nystatin 100,000 unit/gram powder See Rx Instructions .ROUTE .COMPLEX 33 Days RF: 3 tramadol 50 mg Tablet 50 mg PO Q4H PRN PRNQty: 10 RF: 0 Metamucil Sugar-Free (aspart) 3.4 gram/5.8 gram Powder 1 ea PO BID 99 Days Qty: 450 RF: 13 nystatin 100,000 unit/gram powder 1 applic topical BID PRN (Reason: yeast ) Qty: 60 RF: 3 Continued metoprolol succinate 25 mg Tablet Extended Release 24 Hr 12.5 mg PO BID Qty: 30 RF: 0 omeprazole 20 mg capsule,delayed release(DR/EC) 20 mg PO PRN PRNRF: 0 Discontinued aspirin [Aspirin Low Dose] 81 mg Tablet,Delayed Release (Dr/Ec) 81 mg PO DAILY Qty: 30 RF: 0 Discharge Instructions Additional Instructions: Keep an ice bag on the incision. 20 minutes on and 20 minutes off. Ice keeps the swelling down and swelling causes pain. Make sure you wrap the ice pack in a towel and don't apply directly to the skin. -No driving x1 week or of you are taking pain medications. -If you have renetta or sutures in place, they will be removed at your clinic appointment in 7-10 days. -Do Not remove any steri tapes (white tapes) that cover the incision. If you have steri-tapes on your incision, do not use antibacterial ointment. -Follow-up with Dr. Delaney in 1 week. -No restrictions on diet -no straining to move bowels -pain meds are very constipating: if you do not move your bowels daily take a dose of OTC milk of magnesia or Miralax -It is ok to shower. No bathe, soaking, swimming or hot tubs -Keep wound clean and dry. Wash incision with soap and water daily. Pat dry, don't rub. -If you do not have steri-tapes on your incision, than keep the wound covered with a gauze and antibacterial ointment. -Protein supplements daily. You may find that your appetite is smaller. Eat 3-6 small meals throughout the day. It is important to drink lots of water after surgery, 6-10 glasses a day. -If you were given an incentive spirometry (breathing sharepoint developer?), continue to do this 10x/hour while awake. -We do want you up walking, at least 5-6 times per day. This is very important to prevent pneumonia and blood clots. You can climb stairs, take them slowly. -No lifting over 5 pounds. This is very important to avoid developing a hernia in your incision. -You may find that you are very tired after surgery- this is normal. -please do not smoke for a minimum of 72 hours after surgery. -Empty your drain twice a day and record the output. Please bring these numbers to your follow-up appoinment w/ your surgeon. -Follow up with your Primary Provider in 1-2 wks for routine check-up. -hold on ASA for 2wks. Than will have you resume this once the PARAG is out. Stand Alone Forms: Nursing Discharge Form Referrals: Stacie Delaney DO [OSTEOPATHIC DOCTOR] - 08/30/20 11:30 am Activity:: no lifting over 5#'s x 2w Equipment/Supplies:: No Equipment Needed Diet:: As Tolerated Discharge Orders Discharge Orders: Discharge Order (Routine); Ordered 08/24/20 Ordered By: Stacie Delaney DS: Summary Status at Discharge Functional status at discharge: uses cane/walker Overall status at discharge: patient is progressing back to baseline Mental Status: mental status grossly normal Speech and Movement: speech and movement normal Mood: congruent mood Affect: normal affect Exam Psych Mental Status: mental status grossly normal Speech and Movement: speech and movement normal Mood: congruent mood Affect: normal affect DS: Data Vitals/I&O Vitals and I&O: Vital Signs Temperature 36.5 C 08/24/20 07:51 Temperature Source Tympanic 08/24/20 07:51 Pulse 76 08/24/20 07:51 Pulse Rhythm Regular 08/24/20 07:42 Pulse 89 08/18/20 19:31 Respiratory Rate 16 08/24/20 07:51 Respiratory Effort 08/24/20 07:42 Respiratory Depth Normal 08/24/20 07:42 Respiratory Pattern Normal 08/24/20 07:42 Blood Pressure 144/86 H 08/24/20 07:51 Blood Pressure Mean 62 08/18/20 19:00 Pulse Oximetry 93 08/24/20 07:51 Oxygen Delivery Method Room Air 08/24/20 07:51 Oxygen Flow Rate 0 08/24/20 07:51 Pain Level 3 08/24/20 09:51 Comment 08/23/20 14:53 Intake & Output 08/23/20 08/23/20 08/24/20 11:59 23:59 11:59 Intake Total 1445.333 / 2790.666 1345.333 / 2790.666 620 / 620 Output Total 820 / 2575 1755 / 2575 1270 / 1270 Balance 625.333 / 215.666 -409.667 / 215.666 -650 / -650 Intake: IV 965.333 / 1830.666 865.333 / 1830.666 Oral 480 / 960 480 / 960 620 / 620 Injectate 0 / 0 #2 0 / 0 Output: Drainage 20 / 50 30 / 50 20 / 20 #2 20 / 50 30 / 50 20 / 20 Urine 800 / 2525 1725 / 2525 1250 / 1250 Other: Urine Color Yellow Yellow Yellow Urine Appearance Clear Clear Clear Urine Odor Normal Normal None Comment Void x1 in the bedside commode. Mixed with stool; RN unable to determine urine amount. Void x1 in the toilet. Stool Size Small Small Moderate Stool Characteristics Soft Liquid Soft Brown Voiding Methods Toilet Toilet Toilet [facility] Medical History (Updated 08/19/20 @ 13:41 by Stacie Delaney DO) Acute CHF prior to TAVR. none since then Adenocarcinoma of right breast s/p Lumpectomy Advance directive on file Anemia Aortic stenosis, severe s/p TAVR Cancer of ascending colon metastatic to intra-abdominal lymph node S/p Right hemicolectomy Factitious hyperthyroidism GERD (gastroesophageal reflux disease) H/O malignant neoplasm of breast H/O malignant neoplasm of colon Hypertension Hypertension Hypomagnesemia Incarcerated incisional hernia Normocytic anemia Severe aortic stenosis s/p TAVR UTI (urinary tract infection) Yeast dermatitis Surgical History (Updated 08/19/20 @ 00:01 by Stacie Delaney DO) H/O cardiac catheterization H/O colonoscopy H/O heart valve replacement with porcine valve History of esophagogastroduodenoscopy (EGD) [place] [facility] [place] S/P right hemicolectomy S/p TAVR (transcatheter aortic valve replacement), bioprosthetic Status post closure of ileostomy Status post right breast lumpectomy Family History Mother Stroke Hypertension Son Diabetes type 2 Son Diabetes type 2 Father Cancer lung cancer - smoker Brother Cancer unknown type Social History Smoking/Tobacco Use Status: Former Tobacco Use Pack-years: 141 Tobacco: How many years used: 47 Alcohol Intake: current Alcohol Intake frequency: a few times a month Drug use: Never Substance use type: does not use Do you feel safe at home: Yes Do you feel safe in your relationship?: Yes
--- NOTE | 2020-08-24 13:48 | PDOC.CMDIS ---
- If Service Date Differs Date of service: 08/24/20 Time of Service: 13:48 LACE Index Scoring Tool - Questions: Length of Stay (in days): 7 - 13 Acuity (Admit via E.D.?): Yes Comorbidities: Congestive Heart Failure, Metastatic Solid Tumor E.D. Visits: 2 - Answers: Total Score: 15 Risk of Readmission: High Risk Care Management Discharge Reason for Hospitalization: Incarcerated incisional hernia Discharge Plan: Polina will return home today with new RN, PT. sent referral to [facility] for drain care and strengthening. She will follow up with her PCP and discharge plan of care. Her son will drive her home via private vehicle. She is happy to be going home. Patient/Family Education Needs: Review discharge instructions regarding activity levels and medications, drain care for her PARAG drain, discussion of self care needs and goals of care. Services Needed at Discharge: Home Health Care Services ([facility] RN, PT)
--- NOTE | 2020-08-25 17:40 | INDS_ITS ---
Date of service: 08/25/20 PT Notes Visit Reasons: INCARCERATED INCISIONAL HERNIA Physical Therapy Inpatient Discharge Summary Date: 08/25/20 Date of service: 08/20/2020 through 08/23/2020 This is a clinical summary of care provided on the duration of dates listed above. No charge was made in the completion of this documentation. Referring Doctor: Stacie Delaney PT Orders: PT CONSULT: s/p incarcerated hernia & laparotomy Precautions: Fall, standard, abdominal incision, drain tubes, epidural pain mangement Patient Profile/Admitting Diagnosis: Incarcerated incisional hernia PMHX: (Updated 08/19/20 @ 13:41 by Stacie Delaney, ) Acute CHF prior to TAVR. none since then Adenocarcinoma of right breast s/p Lumpectomy Advance directive on file Anemia Aortic stenosis, severe s/p TAVR Cancer of ascending colon metastatic to intra-abdominal lymph node S/p Right hemicolectomy Factitious hyperthyroidism GERD (gastroesophageal reflux disease) H/O malignant neoplasm of breast H/O malignant neoplasm of colon Hypertension Hypertension Hypomagnesemia Incarcerated incisional hernia Normocytic anemia Severe aortic stenosis s/p TAVR UTI (urinary tract infection) Yeast dermatitis Social History/Home Situation: Lives with son, his girlfriend, and adult grandaughter; has 4 FABIO Current Functional Limitations: Pain limiting mobility Equipment Owned/DME: FWW, cane Subjective: NT. See most recent TRAIN DRIVER notes. Objective: General Observation: NT. See most recent TRAIN DRIVER notes. Mental Status: NT. See most recent TRAIN DRIVER notes. Pain:NT. See most recent TRAIN DRIVER notes. ROM: Right Upper Extremity: 75% available shoulder flexion, 50% available shoulder abduction, otherwise WFL Left Upper Extremity: 75% available shoulder flexion, 50% available shoulder abduction, otherwise WFL Right Lower Extremity: hip flexion 50% available, otherwise WFL Left Lower Extremity: hip flexion 50% available, WFL Strength: Right Upper Extremity: 4+/5 Left Upper Extremity: 4+/5 Right Lower Extremity:4+/5 Left Lower Extremity: 4+/5 Sensation: Intact Bed Mobility/Transfers: Patient able to get seated EOB with min A and once upright able to scoot forward independently. CGA for bed to chair transfer with FWW. Gait: Tolerated 100 feet +200 feet of independent ambulation using the front wheeled walker. Require supervision assistance using single-point cane for a feet. Tolerated up-and-down three 4 inch steps and two 6 inch steps while holding onto bilateral rails with step over step pattern independently. Balance: Static Sitting: Normal Dynamic Sitting: Normal Static Standing: Good Dynamic Standing: Fair Assessment: Polina demonstrates significant functional mobility improvements du ring this episode of care as evidenced by current mobility level above and goal status below using front wheeled walker. Goals: Goals X1 week 1. Supine-Sit Independent MET 2. Sit-Supine Independent MET 3. Sit-Stand Independent MET 4. Stand-Sit Independent MET 5. Bed-Chair Independent MET 6. Chair-Bed Independent MET 7. Gait FWW x100' with supervision MET 8. Stairs x4 with rails Supervision MET 9. Independent with home exercise program MET DISCHARGE RECOMMENDATIONS: He should PT services in order to facilitate return to independent prior level of function. TREATMENT CODE/TIME: NC. Thank you for the opportunity to participate in the care of this patient. Flower Lopez PT, DPT, CLT [facility] [place], [place]
== END 2020-08-24 13:00 | disposition home or self-care (01) | DRG 337 ==
LOC: ER 18:12 → DSU 19:58 → MS 08-19 00:17
PROVIDERS: Emergency Medicine; Admitting Provider Surgery; Emergency Provider Registered Nurse Emergency; PCP Nurse Practitioner Family; Visit Provider Surgery
PROC: 0WUF0JZ Supplement Abdominal Wall with Synthetic Substitute, Open Approach (ICD-10-PCS; CPT 49000; principal; 2020-08-18 19:10)
DX: K43.0 Incisional hernia with obstruction, without gangrene (principal); K66.0 Peritoneal adhesions (postprocedural) (postinfection); Z95.3 Presence of xenogenic heart valve; K21.9 Gastro-esophageal reflux disease without esophagitis; Z85.3 Personal history of malignant neoplasm of breast; I10 Essential (primary) hypertension; D64.9 Anemia, unspecified; Z90.49 Acquired absence of other specified parts of digestive tract; Z85.038 Personal history of other malignant neoplasm of large intestine; E05.40 Thyrotoxicosis factitia without thyrotoxic crisis or storm; E83.42 Hypomagnesemia; B37.2 Candidiasis of skin and nail
CPT/HCPCS: 49568; 49566; 36410; 36415; 80048; 80053; 83690; 85027; 90686; 96361; 96365; 96366; 96375; 97110; 97162; 97530; 99223; 99232; 99238; 99285; J1650; NC; U0003; 74176; 82728; 83540; 83550; 83605; 83735; 83880; 85025; 87070; 87205; C1781; J0131; J1100; J1450; J1885; J2405; J2543; J2704; J3010; Q9967

== ENCOUNTER → 2020-08-30 11:26 | Outpatient (BNVA) | payer MEDICARE, SELFPAY | PROVIDERS: PCP Nurse Practitioner Family; Referring Provider Nurse Practitioner Family; Visit Provider Surgery | DX: Z48.815 Encounter for surgical aftercare following surgery on the digestive system (principal); K43.0 Incisional hernia with obstruction, without gangrene; B37.2 Candidiasis of skin and nail; R19.7 Diarrhea, unspecified; I10 Essential (primary) hypertension ==

== ENCOUNTER 2020-08-30 12:27 | Outpatient (REF) | payer MEDICARE, SELFPAY ==
[2020-08-30 13:21] LABS: Abs Immature Grans 0.05 10^3/uL (0.0-0.06); Absolute Basophil Count 0.02 10^3/uL (0.0-0.2); Absolute Eosinophil Count 0.19 10^3/uL (0.0-0.7); Absolute Lymphocyte Count 0.46 10^3/uL (1.2-3.4); Absolute Monocyte Count 0.45 10^3/uL (0.1-0.8); Absolute Neutrophil Count 3.64 10^3/uL (1.2-6.7); Basophils % 0.4; HCT 35.6 % (36.0-46.0); HGB 11.6 g/dL (11.2-15.7); Lymphocytes % 9.6; MCH 30.4 pg (27.0-33.0); MCHC 32.6 % (32.0-36.0); MCV 93.2 fL (80-95); MPV 9.5 fL (8.0-11.0); Monocytes % 9.4; Neutrophils % 75.6; Nucleated RBC 0 %; Platelet Count 273 10^3/uL (130-400); RBC 3.82 10^6/uL (3.93-5.22); RDW 14.4 % (11.7-14.6); RDW-SD 49.4 fL; WBC 4.81 10^3/uL (4.4-10.8)
== END 2020-08-30 12:47 ==
LOC: LBN 12:27
PROVIDERS: PCP Nurse Practitioner Family; Visit Provider Surgery
DX: C50.411 Malignant neoplasm of upper-outer quadrant of right female breast (principal)
CPT/HCPCS: 85025

== ENCOUNTER → 2020-09-01 12:55 | Outpatient (BNVA) | payer MEDICARE, SELFPAY | PROVIDERS: PCP Nurse Practitioner Family; Referring Provider Nurse Practitioner Family; Visit Provider Surgery | DX: Z48.815 Encounter for surgical aftercare following surgery on the digestive system (principal); R19.7 Diarrhea, unspecified; K43.0 Incisional hernia with obstruction, without gangrene; Z95.3 Presence of xenogenic heart valve; I10 Essential (primary) hypertension ==

== ENCOUNTER 2020-09-01 14:00 | Outpatient (REF) | payer MEDICARE, SELFPAY ==
[2020-09-01 12:42] LABS: C Diff PCR Negative (Negative)
== END 2020-09-01 14:20 ==
LOC: LBN 14:00
PROVIDERS: Surgery; PCP Nurse Practitioner Family; Visit Provider Surgery
DX: R19.7 Diarrhea, unspecified (principal)
CPT/HCPCS: 87493

== ENCOUNTER 2020-09-02 17:47 | Emergency (ER) | payer MEDICARE, SELFPAY ==
[2020-09-02 17:52] VITALS: BP 150/82; PULSE 100; RESP 16; TEMP 36.3; O2SAT 96
--- NOTE | 2020-09-02 18:10 | W.ED.GENAD ---
Discharge Plan Disposition Patient Disposition: HOME Condition: Stable Discharge Details Clinical Impression: Drainage from surgical wound Primary Care Provider: Tiana Romano ED Provider: Cj Laurent Home Meds and New Rx's Prescriptions: Continued acetaminophen [Tylenol Extra Strength] 500 mg tablet 1,000 mg PO ONCE PRNRF: 0 cephalexin [Keflex] 250 mg capsule 250 mg PO BID 5 Days Qty: 10 RF: 0 cholestyramine (with sugar) 4 gram powder 1 pwd PO BID Qty: 378 RF: 0 Bio-K plus 50 billion cell capsule,delayed release(DR/EC) 1 cap PO DAILY Qty: 60 RF: 3 loperamide [Imodium A-D] 2 mg tablet 2 mg PO QID PRN (Reason: loose stool) Qty: 60 RF: 12 metoprolol succinate 25 mg Tablet Extended Release 24 Hr 12.5 mg PO BID Qty: 30 RF: 0 omeprazole 20 mg capsule,delayed release(DR/EC) 20 mg PO PRN PRNRF: 0 nystatin 100,000 unit/gram powder See Rx Instructions .ROUTE .COMPLEX 33 Days RF: 3 Metamucil Sugar-Free (aspart) 3.4 gram/5.8 gram Powder 1 ea PO BID 99 Days Qty: 450 RF: 13 nystatin 100,000 unit/gram powder 1 applic topical BID PRN (Reason: yeast ) Qty: 60 RF: 3 Discharge Instructions Additional Instructions: Please follow-up with Dr. Delaney in clinic on Friday as planned. Use the provided abdominal pad to absorb any excess drainage. Return if the wound opens up, if you develop a fever, abdominal pain, or any other acute concerns. Continue regularly prescribed medications. Discharge Data Discharge Date/Time-TO BE ENTERED AT DEPARTURE: 09/02/20 19:35 Medical Decision Making 75-year-old female status post repair of an incarcerated ventral hernia on August 19. This afternoon she noticed some slight oozing of blood from the inferior portion of the abdominal incision. She is otherwise been well without fever. She had a normal diet. No other complaints. On exam there is slight oozing of blood and probable palpable subcutaneous hematoma. Steri-Strips were placed, no further drainage occurred and the patient was referred for noncontrast CT scan. Hematocrit is 32.7. CT does reveal a 3 x 6 cm fluid collection in the morning to abdominal wall. Case discussed with Dr. Saravia. Agrees there is no indication for intervention, patient does have follow-up with Dr. Delaney on Friday. She may have some mild further drainage and therefore will discharge her with an ABD absorbent pad. She is already taking antibiotics for question of small wound infection from her drain. She is stable and appropriate for discharge to home. HPI General Mode of arrival: ambulatory. Date/Time Provider Initiated Documentation: 09/02/20 17:58. Limitations to Documentation: no limitations. Information obtained by: patient. History of Present Illness 75 year old F presents to the emergency department with the chief complaint of Lower abdominal incision drainage at home, described as mild, and is localized to the abdomen. Patient reports no radiation. Patient started experiencing this minute(s) and it has been now resolved. No relieving factors improve symptom(s), No exacerbating factors reported . Patient notes no other symptoms.. Patient did receive the following treatments prior to arrival, none Related Data Home Medications Medication Instructions Recorded Confirmed metoprolol succinate 12.5 mg PO BID #30 tab 04/16/20 09/02/20 omeprazole 20 mg PO PRN PRN 08/18/20 09/02/20 Metamucil Sugar-Free (aspart) 1 ea PO BID 99 Days #450 g 08/24/20 09/02/20 nystatin 1 applic TOPICAL BID PRN #60 g 08/24/20 09/02/20 nystatin See Rx Instructions .ROUTE 08/24/20 09/02/20 .COMPLEX 33 Days g acetaminophen 500 mg tablet 1,000 mg PO ONCE PRN tab 08/30/20 09/01/20 L. acidophilus,casei,rhamnosus 50 1 cap PO DAILY #60 cap 09/01/20 09/01/20 billion cell capsule,delayed release cephalexin 250 mg capsule 250 mg PO BID 5 Days #10 cap 09/01/20 09/02/20 cholestyramine (with sugar) 4 gram 1 pwd PO BID #378 g 09/01/20 09/02/20 oral powder loperamide 2 mg tablet 2 mg PO QID PRN #60 tab 09/01/20 09/02/20 Previous Rx's Medication Instructions Recorded metoprolol succinate 12.5 mg PO BID #30 tab 04/16/20 Metamucil Sugar-Free (aspart) 1 ea PO BID 99 Days #450 g 08/24/20 nystatin 1 applic TOPICAL BID PRN #60 g 08/24/20 nystatin See Rx Instructions .ROUTE 08/24/20 .COMPLEX 33 Days g L. acidophilus,casei,rhamnosus 50 1 cap PO DAILY #60 cap 09/01/20 billion cell capsule,delayed release cephalexin 250 mg capsule 250 mg PO BID 5 Days #10 cap 09/01/20 cholestyramine (with sugar) 4 gram 1 pwd PO BID #378 g 09/01/20 oral powder loperamide 2 mg tablet 2 mg PO QID PRN #60 tab 09/01/20 Allergies Allergy/AdvReac Type Severity Reaction Status Date / Time morphine Allergy Intermediate Hives Unverified 09/02/20 17:57 General Stated Complaint: Abd Prob JEANIE: 3 Review of Systems Narrative: No fever. Eating and drinking normally. Denies abdominal pain. 6 systems reviewed and otherwise negative [facility] Medical History Acute CHF prior to TAVR. none since then Adenocarcinoma of right breast s/p Lumpectomy Advance directive on file Anemia Aortic stenosis, severe s/p TAVR Cancer of ascending colon metastatic to intra-abdominal lymph node S/p Right hemicolectomy Diarrhea Factitious hyperthyroidism GERD (gastroesophageal reflux disease) H/O malignant neoplasm of breast H/O malignant neoplasm of colon Hypertension Hypertension Hypomagnesemia Incarcerated incisional hernia Normocytic anemia Severe aortic stenosis s/p TAVR UTI (urinary tract infection) Yeast dermatitis Surgical History H/O cardiac catheterization H/O colonoscopy H/O heart valve replacement with porcine valve History of esophagogastroduodenoscopy (EGD) History of ventral hernia repair 07/01/19 at [facility] [place] S/P cholecystectomy S/P right hemicolectomy S/p TAVR (transcatheter aortic valve replacement), bioprosthetic Status post closure of ileostomy Status post right breast lumpectomy Family History Mother Stroke Hypertension Son Diabetes type 2 Son Diabetes type 2 Father Cancer lung cancer - smoker Brother Cancer unknown type Social History Smoking/Tobacco Use Status: Former Tobacco Use Pack-years: 141 Tobacco: How many years used: 47 Alcohol Intake: current Alcohol Intake frequency: a few times a month Drug use: Never Substance use type: does not use Current gender identity: female Do you feel safe at home: Yes Do you feel safe in your relationship?: Yes Exam Narrative Exam Narrative: GEN: awake, alert, oriented 3. Pleasant, well groomed, interactive. HEAD: Normocephalic, atraumatic ENT: Mucous membranes moist, oropharynx unremarkable, External ear exam unremarkable EYES: PERRL, EOMI NECK: Full ROM, no MIKE, no menigismus CHEST/RESP: No respiratory distress ABDOMEN: Soft, nontender, no mass. +Bowel sounds. Midline vertical incision with renetta in place. Slight oozing of blood from inferior portion approximately 1 inch cranial to the caudal margin. Palpable small area of mass in that area. No fluctuance. There is a healing wound to the left para midline of the incision that the patient states was site of a drain tube. EXT: Full ROM, no edema, no rash Neuro: Grossly normal neurologic exam, conversant, interactive. Psych: Speech fluent, thoughts congruent, affect normal Course Vital Signs Vital signs: Vital Signs Temperature 36.3 C L 09/02/20 17:52 Pulse 100 H 09/02/20 17:52 Respiratory Rate 16 09/02/20 17:52 Blood Pressure 150/82 H 09/02/20 17:52 Pulse Oximetry 96 09/02/20 17:52 Temperature 36.3 C L 09/02/20 17:52 Temperature Source Skin 09/02/20 17:52 Pulse 100 H 09/02/20 17:52 Respiratory Rate 16 09/02/20 17:52 Respiratory Effort Non-Labored 09/02/20 17:52 Blood Pressure 150/82 H 09/02/20 17:52 Blood Pressure Position Supine 09/02/20 17:52 Pulse Oximetry 96 09/02/20 17:52 Oxygen Delivery Method Room Air 09/02/20 17:52 Oxygen Flow Rate 0 09/02/20 17:52 Pain Level 3 09/02/20 17:52
--- NOTE | 2020-09-02 18:36 | DI.CT_ITS ---
EXAM: CT ABDOMEN PELVIS WO CLINICAL HISTORY: lower incision drainage, 10d post op COMPARISON: CT CT ABDOMEN PELVIS WO from 08/18/2020 FINDINGS: CT examination of the abdomen and pelvis was performed without contrast administration. Images obtai khadar through the lung bases are unremarkable. There is an apparent aortic valve prosthesis. There is coronary artery calcification. There is a prior cholecystectomy. Liver, spleen, and pancreas grossly unremarkable. No biliary dila tation. Adrenal nodularity again noted. No focal renal acute process. No hydronephrosis or nephrolithiasis. Abdominal aorta is of normal diameter. No significant abdominal or pelvic adenopathy. A prior colon anastomosis is noted on the right. Postsurgical changes noted in the anterior abdominal wall, apparent hernia repair. There is an appro ximately 36 x 60 millimeter in diameter fluid collection in the anterior abdominal wall which is irre gular in contour. There are associated areas of increased fat attenuation which are nonspecific, inf lammation not excluded. No gross recurrent abdominal wall hernia seen. All Source Analyst structures are unremarkable for age. No evidence of bowel obstruction. No free intra-abdominal air. IMPRESSION: Nonspecific fluid collection, postoperative, in anterior abdominal wall. Hematoma versus seroma, abs cess or infected fluid collection not excluded. Appropriate follow-up studies requested. RADIATION DOSE DELIVERED: 892.98mGy.cm Total DLP 892.98mGy.cm Total DLP 892.98mGy.cm Total DLP
[2020-09-02 18:58] LABS: Abs Immature Grans 0.04 10^3/uL (0.0-0.06); Absolute Basophil Count 0.03 10^3/uL (0.0-0.2); Absolute Eosinophil Count 0.24 10^3/uL (0.0-0.7); Absolute Lymphocyte Count 0.55 10^3/uL (1.2-3.4); Absolute Monocyte Count 0.35 10^3/uL (0.1-0.8); Absolute Neutrophil Count 3.96 10^3/uL (1.2-6.7); Basophils % 0.6; Eosinophils % 4.6; HCT 32.7 % (36.0-46.0); HGB 10.8 g/dL (11.2-15.7); Immature Grans % 0.8; Lymphocytes % 10.6; MCH 30.9 pg (27.0-33.0); MCV 93.4 fL (80-95); MPV 9.2 fL (8.0-11.0); Monocytes % 6.8; Neutrophils % 76.6; Nucleated RBC 0 %; Platelet Count 244 10^3/uL (130-400); RDW 14.3 % (11.7-14.6); RDW-SD 47.8 fL; WBC 5.17 10^3/uL (4.4-10.8)
--- NOTE | 2020-09-02 18:59 | DI.VRAD_ITS ---
PROCEDURE INFORMATION: Exam: CT Abdomen And Pelvis Without Contrast Exam date and time: 09/02/2020 6:10 PM Age: 75 years old Clinical indication: Other: Lower incision drainage, 10d post op; Prior surgery; Surgery date: <1 month; Surgery type: 10 days S/P hernia repair TECHNIQUE: Imaging protocol: Computed tomography of the abdomen and pelvis without contrast. Radiation optimization: All CT scans at this facility use at least one of these dose optimization techniques: automated exposure control; mA and/or kV adjustment per patient size (includes targeted exams where dose is matched to clinical indication); or iterative reconstruction. COMPARISON: CT ABDOMEN PELVIS WO 08/18/2020 5:00 PM FINDINGS: Lungs: Subpleural reticular densities in the right middle lobe, similar to prior. Heart: Prosthetic aortic valve is seen. Liver: Unremarkable. Gallbladder and bile ducts: Prior cholecystectomy. Pancreas: Unremarkable. Spleen: Unremarkable. Adrenals: Stable bilateral adrenal nodularity. Kidneys and ureters: No hydronephrosis. No ureteral calculus. Small nonspecific hypodensity in the right kidney. Stomach and bowel: No bowel obstruction. There is colonic diverticulosis. No evidence of acute diverticulitis. Postsurgical changes are seen in the right colon. Appendix: The appendix is not seen. Intraperitoneal space: No free air. No significant fluid collection. Vasculature: No aortic aneurysm. There are atherosclerotic calcifications of the aorta. Lymph nodes: No pathologically enlarged lymph nodes. Urinary bladder: The bladder is decompressed. Reproductive: Unremarkable as visualized. Bones/joints: There is generalized osteopenia. Stable compression deformities of the lumbar spine. Soft tissues: Postsurgical changes are seen in the anterior abdominal wall. A 3.6 x 6.1 cm fluid collection is seen in the anterior abdominal wall. There is subcutaneous edema and fat stranding. There is skin thickening along the surgical renetta. IMPRESSION: 1. Postsurgical changes in the anterior abdominal wall with a nonspecific 3.6 x 6.1 cm fluid collection and adjacent inflammatory changes. 2. No other acute abnormality. 3. Additional incidental/non-emergent findings, as above. Dictated and Authenticated by: Ronnie Tsai MD. Ordering:THIAGO Corona MD
[2020-09-02 19:15] VITALS: BP 123/62; PULSE 85; RESP 16; O2SAT 97
== END 2020-09-02 19:35 | disposition home or self-care (01) ==
PROVIDERS: Emergency Provider Emergency Medicine; PCP Nurse Practitioner Family
DX: L76.32 Postprocedural hematoma of skin and subcutaneous tissue following other procedure (principal); Y83.8 Other surgical procedures as the cause of abnormal reaction of the patient, or of later complication, without mention of misadventure at the time of the procedure; K43.0 Incisional hernia with obstruction, without gangrene; I10 Essential (primary) hypertension
CPT/HCPCS: 36415; 99285; 74176; 85025; 99284

== ENCOUNTER → 2020-09-06 12:39 | Outpatient (BNVA) | payer MEDICARE, SELFPAY | PROVIDERS: PCP Nurse Practitioner Family; Referring Provider Nurse Practitioner Family; Visit Provider Surgery | DX: Z48.815 Encounter for surgical aftercare following surgery on the digestive system (principal); Z87.19 Personal history of other diseases of the digestive system; C50.911 Malignant neoplasm of unspecified site of right female breast ==

== ENCOUNTER → 2020-09-13 13:25 | Outpatient (BNVA) | payer MEDICARE, SELFPAY | PROVIDERS: PCP Nurse Practitioner Family; Referring Provider Nurse Practitioner Family; Visit Provider Surgery | DX: Z48.815 Encounter for surgical aftercare following surgery on the digestive system (principal); Z87.19 Personal history of other diseases of the digestive system; I10 Essential (primary) hypertension ==

== ENCOUNTER 2020-09-13 14:16 | Outpatient (REF) | payer MEDICARE, SELFPAY ==
[2020-09-13 14:36] LABS: HCT 34.8 % (36.0-46.0); HGB 11.4 g/dL (11.2-15.7); MCH 30.8 pg (27.0-33.0); MCHC 32.8 % (32.0-36.0); MCV 94.1 fL (80-95); MPV 10.2 fL (8.0-11.0); Platelet Count 141 10^3/uL (130-400); RDW 14.2 % (11.7-14.6); RDW-SD 48.6 fL; WBC 4.19 10^3/uL (4.4-10.8)
== END 2020-09-13 14:36 ==
LOC: LBN 14:16
PROVIDERS: PCP Nurse Practitioner Family; Visit Provider Surgery
DX: C50.911 Malignant neoplasm of unspecified site of right female breast (principal)
CPT/HCPCS: 85027

== ENCOUNTER → 2020-10-04 12:51 | Outpatient (BNVA) | payer MEDICARE, SELFPAY | PROVIDERS: PCP Nurse Practitioner Family; Referring Provider Nurse Practitioner Family; Visit Provider Surgery | DX: Z48.815 Encounter for surgical aftercare following surgery on the digestive system (principal); I10 Essential (primary) hypertension ==

== ENCOUNTER 2020-10-07 13:37 | Emergency (ER) | payer MEDICARE, SELFPAY ==
[2020-10-07] VITALS (32 sets, daily range): BP systolic 100–151; BP diastolic 50–79; PULSE 77–118; RESP 11–31; TEMP 36.5–36.6; O2SAT 93–98
--- NOTE | 2020-10-07 13:38 | ED.GENADUL_ITS ---
Discharge Plan Disposition Patient Disposition: HOME Condition: Improving Discharge Details Clinical Impression: Chest wall contusion Primary Care Provider: Tiana Romano ED Provider: Erum Jean Home Meds and New Rx's Prescriptions: No Action acetaminophen [Tylenol Extra Strength] 500 mg tablet 1,000 mg PO ONCE PRNRF: 0 cholestyramine (with sugar) 4 gram powder 1 pwd PO BID Qty: 378 RF: 0 Bio-K plus 50 billion cell capsule,delayed release(DR/EC) 1 cap PO DAILY Qty: 60 RF: 3 loperamide [Imodium A-D] 2 mg tablet 2 mg PO QID PRN (Reason: loose stool) Qty: 60 RF: 12 omeprazole 40 mg capsule,delayed release(DR/EC) 40 mg PO DAILY Qty: 30 RF: 12 metoprolol succinate 25 mg Tablet Extended Release 24 Hr 12.5 mg PO BID Qty: 30 RF: 0 nystatin 100,000 unit/gram powder See Rx Instructions .ROUTE .COMPLEX 33 Days RF: 3 Discharge Instructions Instructions: Contusion in Adults (ED) Additional Instructions: use acetaminophen 650 mg 4 times daily for 5 days, then as needed for pain can add ibuprofen 600 mg 4 times daily with food , you can alternate the 2 if needed you can use heat or ice as directed for comfort. Referrals: Tiana Romano [Primary Care Provider] - (next week) Discharge Data Discharge Date/Time-TO BE ENTERED AT DEPARTURE: 10/07/20 19:50 Medical Decision Making <MARIVEL Whitney - Last Filed: 10/08/20 09:43> Patient has a 75-year-old female presents today with chief complaint of left chest pain. She reports that last night she got out of bed to use the restroom when she slipped on the floor and landed on a few steps at her room on her left side. Since that time she been having pain, particularly preparation. She is unsure if she struck her head or loss conscious. Patient is not anticoagulated. She reports that she is been using Tylenol with minimal improvement in her discomfort. She denies any pain in her neck. Is not noted any weakness. Is unable to tolerate laying flat secondary to her pain in her chest and shortness of breath that is associated with this. On exam, patient appears very anxious. Her lungs are clear she does have a large ecchymotic area of the left breast and left upper quadrant. Abdomen is benign, she does have ecchymosis that extends over the quadrant. No midline hns. patient was unable to tolerate any exam while lying supine. And, try to lay somewhat flat she would begin to panic and feel like she was unable to breathe. Bedside chest x-ray was obtained: FINDINGS: Lungs: There is mild nonspecific interstitial prominence similar to the patient's prior exam. No new airspace consolidation is identified. Pleural space: A large pleural effusion, or pneumothorax is not seen . There is pleural thickening at the lung apices Heart/Mediastinum: Heart, mediastinum are unchanged Patient has had prior aortic valve replacement Vasculature: Vascular calcification is seen at the aortic arch Bones/joints: Unremarkable. Soft tissues: No definite acute bony abnormality on AP chest IMPRESSION: No acute findings on AP view of the chest Patient was given 50 mcg of fentanyl to help with discomfort. Added 4 mg Ondansetron as she did experience some mild nausea with this. Plan to onbtain CT as I am concerned for rib fracture that ma.y have been missed on XR. Also concerned that the patient does not remember if she struck her head, will obtain head/neck CT. She has ecchomosis over her LUQ, concerned that htis could potentially be splenic injury. Patient went for CT, began to panic when trying to lay supine despite the patient doing fairly well with this in the department. Patient pawel back, evaluated by RT. They feel this is anxiety driven. Given 0.5mg Ativan. At the end of shift, care transitioned to Erum Jean NP with imaging pending. <Erum Jean NP - Last Filed: 10/07/20 19:26> care of patient received, awaiting cat scans. CT Abdomen And Pelvis With Contrast: IMPRESSION: No new or acute findings when compared with the patient's prior exam. Post surgical changes involving the ventral abdominal wall. Interval decrease in size of small midline subcutaneous incisional collection previously noted Multiple lumbar compression deformities unchanged when compared with the patient's prior exam. No new bony abnormality identified. CT chest: IMPRESSION: 1. No acute bony abnormality identified. 2. Irregular density in the right breast may be post surgical. Clinical correlation recommended. 3. There are some nonspecific subpleural opacities anteriorly in the right upper lobe, again nonspecific possibly related to prior treatment or radiation. There is no lobar consolidation 4. Large pleural effusion, or pneumothorax is not seen CT cspine: IMPRESSION: Cervical spondylosis, disc disease. Scoliosis. No acute fracture in the cervical spine She is given IV acetaminophen 1000 mg and toradol 15 mg with improvement in her symptoms. she is able to ambulate in the department easily and voided in the bathroom ambulating back to her room. she is stable and ready for discharge to home Medical Records Medical records reviewed: Yes I reviewed the patient's medical records. HPI <MARIVEL Whitney - Last Filed: 10/08/20 09:43> General Mode of arrival: wheelchair . Date/Time Provider Initiated Documentation: 10/07/20 13:37 . Limitations to Documentation: no limitations . Information obtained by: patient and RN notes reviewed . History of Present Illness 75 year old F presents to the emergency department with the chief complaint of left sided chest pain after fall, described as severe, with intensity rated at 8. Quality is described as sharp, and is localized to the chest. Patient reports no radiation. Patient started experiencing this hour(s) (middle of the night last night) and it has been constant. Immobilization improves symptom(s), Movement worsens symptoms (deep breaths, laying flat) . Patient notes chest pain, rash (ecchymosis left breast, left arm) and shortness of breath; denies confusion, cough, diaphoresis, fever/chills, headaches, nausea/vomiting and syncope. Patient did receive the following treatments prior to arrival, other (tylenol) Related Data Home Medications Medication Instructions Recorded Confirmed metoprolol succinate 12.5 mg PO BID #30 tab 04/16/20 10/07/20 nystatin See Rx Instructions .ROUTE 08/24/20 10/07/20 .COMPLEX 33 Days g acetaminophen 500 mg tablet 1,000 mg PO ONCE PRN tab 08/30/20 10/07/20 L. acidophilus,casei,rhamnosus 50 1 cap PO DAILY #60 cap 09/01/20 10/07/20 billion cell capsule,delayed release cholestyramine (with sugar) 4 gram 1 pwd PO BID #378 g 09/01/20 09/13/20 oral powder loperamide 2 mg tablet 2 mg PO QID PRN #60 tab 09/01/20 10/07/20 omeprazole 40 mg capsule,delayed 40 mg PO DAILY #30 cap 10/04/20 10/07/20 release Previous Rx's Medication Instructions Recorded metoprolol succinate 12.5 mg PO BID #30 tab 04/16/20 nystatin See Rx Instructions .ROUTE 08/24/20 .COMPLEX 33 Days g L. acidophilus,casei,rhamnosus 50 1 cap PO DAILY #60 cap 09/01/20 billion cell capsule,delayed release cholestyramine (with sugar) 4 gram 1 pwd PO BID #378 g 09/01/20 oral powder loperamide 2 mg tablet 2 mg PO QID PRN #60 tab 09/01/20 omeprazole 40 mg capsule,delayed 40 mg PO DAILY #30 cap 10/04/20 release Allergies Allergy/AdvReac Type Severity Reaction Status Date / Time morphine Allergy Intermediate Hives Unverified 10/07/20 13:57 General JEANIE: 3 Review of Systems <MARIVEL Whitney - Last Filed: 10/08/20 09:43> Constitutional Constitutional: Reports as per HPI, Denies chills, Denies fatigue, Denies fever(s), Denies headache(s) and Denies weakness Eyes Eyes: Reports as per HPI, Denies blurry vision, Denies change in vision and Denies loss of vision ENT Ears, Nose, Mouth, and Throat: Denies abnormal hearing and Denies headache(s) Cardiovascular Cardiovascular: Reports as per HPI, Reports chest pain and Reports dyspnea Respiratory Respiratory: Reports as per HPI, Denies cough, Denies pain on inspiration, Denies pain with cough and Reports dyspnea Gastrointestinal Gastrointestinal: Reports as per HPI, Denies abdominal pain, Denies nausea and Denies vomiting Genitourinary Genitourinary: Reports as per HPI and Denies urinary incontinence Musculoskeletal Musculoskeletal: Reports as per HPI Integumentary/Breasts Skin/Breast: Reports as per HPI and Reports unusual bruising Neurologic Neurologic: Reports as per HPI, Denies abnormal hearing, Denies abnormal movements, Denies abnormal speech, Denies headache(s), Denies lack of coordination, Denies localized weakness, Denies loss of vision, Denies seizure- like activity, Denies paresthesias and Denies weakness Endocrine Endocrine: Denies fatigue PFSH <MARIVEL Whitney - Last Filed: 10/08/20 09:43> Medical History Acute CHF prior to TAVR. none since then Adenocarcinoma of right breast s/p Lumpectomy Advance directive on file Anemia Aortic stenosis, severe s/p TAVR Cancer of ascending colon metastatic to intra-abdominal lymph node S/p Right hemicolectomy Diarrhea Factitious hyperthyroidism GERD (gastroesophageal reflux disease) H/O malignant neoplasm of breast H/O malignant neoplasm of colon Hypertension Hypertension Hypomagnesemia Incarcerated incisional hernia Normocytic anemia Severe aortic stenosis s/p TAVR UTI (urinary tract infection) Yeast dermatitis Surgical History H/O cardiac catheterization H/O colonoscopy H/O heart valve replacement with porcine valve History of esophagogastroduodenoscopy (EGD) History of ventral hernia repair 07/01/19 at [facility] [place]/P cholecystectomy S/P recurrent ventral herniorrhaphy pt has [id number] polypropalene mesh implanted S/P right hemicolectomy S/p TAVR (transcatheter aortic valve replacement), bioprosthetic Status post closure of ileostomy Status post right breast lumpectomy Family History Mother Stroke Hypertension Son Diabetes type 2 Son Diabetes type 2 Father Cancer lung cancer - smoker Brother Cancer unknown type Social History Smoking/Tobacco Use Status: Former Tobacco Use Pack-years: 141 Tobacco: How many years used: 47 Smoking risk assessment performed?: Yes Alcohol Intake: current Alcohol Intake frequency: holidays/special occasions on ly Drug use: Never Substance use type: does not use Current gender identity: female Do you feel safe at home: Yes Do you feel safe in your relationship?: Yes Exam <MARIVEL Whitney - Last Filed: 10/08/20 09:43> Const General: cooperative, healthy appearing, uncomfortable, well developed, well groomed, in distress mild and anxious Nutritional Appearance: average body habitus and overweight Orientation: alert, awake and oriented x3 HENMT Head: normal to inspection, no palpable skull fracture, normocephalic and atraumatic Ears: hearing grossly normal bilaterally, external ears normal and TM's normal bilaterally General nose exam: external nose normal Mouth: oral mucosae normal, lip normal and tongue normal Throat: posterior oropharynx normal Eyes General: appearance normal, both eyes and all related structures Visual Kelly: normal visual kelly by confrontation Alignment and Position: alignment normal Periorbital: periorbital findings normal Eyelids: eyelids normal Conjunctivae: conjunctivae normal Pupils: PERRL EOM: EOM intact bilaterally Neck Neck: normal visual inspection, full ROM, no lymphadenopathy, no meningeal signs, trachea midline and supple Chest Chest: normal palpation of entire chest wall, no crepitus, localized rib tenderness with anteroposterior compression (along lower half left chest wall) and other (ecchymosis left breast and under left breast) Resp Effort & Inspection: normal respiratory effort, able to speak in complete sentences and no respiratory distress Auscultation: clear to auscultation bilaterally, no rales, no rhonchi and no wheezes Cardio Rate: regular rate Rhythm: regular rhythm Heart Sounds: S1 normal and S2 normal GI Inspection: normal to inspection, abdominal wall ecchymosis (LUQ extending from under left breast), no edema and non-distended Palpation: soft, no hepatosplenomegaly, not firm, no guarding, no pulsatile masses, not rigid and nontender Auscultation: normal bowel sounds Back/Spine/Pelvis Back: no CVA tenderness Cervical Spine: normal cervical lordosis and cervical ROM normal Thoracic/Lumbar Spine: thoracic and lumbar spine normal to inspection, thoraco- lumbar ROM normal, No thoraco-lumbar ROM limited, No thoraco-lumbar spasm and No thoracic spinal tenderness Pelvis: no pain with anterior-posterior compression and no pain with lateral compression Skin General skin exam: ecchymosis (as above) Neuro General: patient alert, patient awake, patient oriented x3, gait normal, tone normal and moves all extremities Cranial Nerves: CN's II-XI intact bilaterally Cognition: normal cognition Speech: speech normal Gait: normal gait Motor: muscle tone normal throughout and strength 5/5 throughout Sensory Exam: no sensory deficits noted (no saddle paresthesias) Extrem General: normal to inspection, full ROM, capillary refill normal, no pedal edema and no calf tenderness Psych Appearance: grossly normal and well kempt Mental Status: mental status grossly normal Speech and Movement: speech and movement normal Sign Out <MARIVEL Whitney - Last Filed: 10/08/20 09:43> Sign Out Data: Sign Out Comment: Care transitioned to Erum Jean NP with imaging pending. Patient received 50mcg Fentanyl initially. Just received 0.5mg Ativan. RT will go with her to CT. Last updated by Jacqueilne Meade PA at 10/07/20 16:18
--- NOTE | 2020-10-07 13:45 | DI.CT_ITS ---
EXAM: CT CHEST/ABD/PEL W CLINICAL HISTORY: fall, left sided trauma TECHNIQUE: COMPARISON: CT CT ABDOMEN PELVIS WO from 09/02/2020 FINDINGS: CT examination of the chest, abdomen, and pelvis was performed with bolus infusion of 100 cc of Omnip aque 350. There are peripheral reticular radiodensities predominantly in the right lung, these are nonspecific and may represent areas of scarring. No mediastinal or hilar adenopathy. The lungs otherwise appear clear. No axillary or supraclavicular adenopathy. No pleural effusion. Note is made of a prior cholecystectomy. There is borderline increased size of the common hepatic du ct at 14 millimeters, probably unchanged from prior studies. Pancreas is grossly unremarkable. Sple en appears normal. No focal hepatic abnormality. Adrenals and kidneys are unremarkable in appearanc e with an incidental lower pole right renal cyst. Abdominal aorta is of normal diameter. Previously described subcutaneous fluid collection at the surgical site of the anterior abdominal wal l is significantly smaller on today's examination, now measuring about 24 x 12 millimeters in diamete r. Right colonic anastomosis again noted. No evidence of bowel obstruction. No free intraperitoneal ai r or fluid. No abdominal or pelvic adenopathy. Customer Consultant structures unremarkable for age. No fracture identified on scanning of the chest abdomen and pelvis. IMPRESSION: No evidence of acute process. Decreased size of previously noted subcutaneous fluid collection at th e Elisa umbilical surgical site. RADIATION DOSE DELIVERED: 1,248.22mGy.cm Total DLP
--- NOTE | 2020-10-07 13:45 | DI.RAD_ITS ---
EXAM: XR PORTABLE CHEST AP CLINICAL HISTORY: trauma left side chest, SOB TECHNIQUE: COMPARISON: CR XR CHEST 2V PA LATERAL from 06/06/2019 FINDINGS: Portable upright chest at 1401 hours. The heart is at the upper limits of normal in size. There is an apparent proximal aortic stent graft. Fibrotic changes are noted in the lungs, unchanged from nicole or study. No focal acute consolidation. No pleural effusion on this frontal film. No pneumothorax seen. IMPRESSION: No evidence of acute process. RADIATION DOSE DELIVERED: Total DLP
--- NOTE | 2020-10-07 13:45 | DI.CT_ITS ---
EXAM: CT HEAD CERVICAL SPINE WO COMPARISON: No exams were available for comparison FINDINGS: CT examination of the cervical spine was performed without contrast administration. There is no evidence of acute cervical spine fracture or dislocation. There is moderate degenerative change of the cervical spine predominantly involving the mid to lower spine.. Tracheolaryngeal structures appear intact. No cervical mass or adenopathy. Noncontrast cranial CT was performed. There is mild generalized cerebral atrophy. No evidence of acute intracranial hemorrhage, mass effect, or midline shift. No calvarial fracture. The orbital and temporal bone structures appear intact. Visualized mastoid air cells and paranasal sinuses appear clear. IMPRESSION: No evidence of acute cervical spine injury. No evidence of acute intracranial injury. RADIATION DOSE DELIVERED: 1,407.1mGy.cm Total DLP 1,407.1mGy.cm Total DLP DATA REPOSITORY: All CT scans at this facility are submitted to the National Radiology Data Registry (NRDR) Dose Index Registry (DIR) with the [employer] ([employer]). RADIATION OPTIMIZATION: All CT scans at this facility use at least one of these dose optimization te chniques: automated exposure control; mA and/or kV adjustment per patient size (includes targeted exa ms where dose is matched to clinical indication); or iterative reconstruction.
--- NOTE | 2020-10-07 13:45 | RT.EKG_ITS ---
APPROVED REPORT Exam: Resting ECG Patient Location: E HR:84 bpm ECG Measurements Heart Rate 84 AXIS TX 186 P 50 QRSd 152 QRS -10 QT 450 T 131 QTc 533 Conclusion Sinus rhythm...normal P axis, V-rate 60- 99 Left bundle branch block...QRSd>120, broad/notched R ST elevation secondary to IVCD...Multiple VCG criteria. No acute change from previous EKG. I have reviewed and interpreted ECG and agree with software generated interpretation.
[2020-10-07 14:25] LABS: Abs Immature Grans 0.08 10^3/uL (0.0-0.06); Absolute Basophil Count 0.01 10^3/uL (0.0-0.2); Absolute Eosinophil Count 0.02 10^3/uL (0.0-0.7); Absolute Lymphocyte Count 0.36 10^3/uL (1.2-3.4); Absolute Monocyte Count 0.44 10^3/uL (0.1-0.8); Absolute Neutrophil Count 5.77 10^3/uL (1.2-6.7); Basophils % 0.1; Eosinophils % 0.3; HGB 12.1 g/dL (11.2-15.7); Immature Grans % 1.2; Lymphocytes % 5.4; MCH 30.5 pg (27.0-33.0); MCHC 33.6 % (32.0-36.0); MCV 90.7 fL (80-95); MPV 9.4 fL (8.0-11.0); Monocytes % 6.6; Neutrophils % 86.4; Nucleated RBC 0 %; Platelet Count 169 10^3/uL (130-400); RBC 3.97 10^6/uL (3.93-5.22); RDW 13.4 % (11.7-14.6); RDW-SD 44.4 fL; WBC 6.68 10^3/uL (4.4-10.8)
--- NOTE | 2020-10-07 14:25 | DI.VRAD_ITS ---
PROCEDURE INFORMATION: Exam: XR Chest, 1 View Exam date and time: 10/07/2020 2:04 PM Age: 75 years old Clinical indication: Other: Trauma left side chest, SOB TECHNIQUE: Imaging protocol: XR of the chest Views: 1 view. COMPARISON: CR XR CHEST 2V PA LATERAL 06/06/2019 9:27 AM FINDINGS: Lungs: There is mild nonspecific interstitial prominence similar to the patient's prior exam. No new airspace consolidation is identified. Pleural space: A large pleural effusion, or pneumothorax is not seen . There is pleural thickening at the lung apices Heart/Mediastinum: Heart, mediastinum are unchanged Patient has had prior aortic valve replacement Vasculature: Vascular calcification is seen at the aortic arch Bones/joints: Unremarkable. Soft tissues: No definite acute bony abnormality on AP chest IMPRESSION: No acute findings on AP view of the chest Dictated and Authenticated by: Ashly Robertson MD. Ordering:REBECCA Phillips MD
[2020-10-07] MEDS: fentaNYL 100 MCG/2 ML VIAL 50 MCG IVP (14:35)
[2020-10-07 14:39] LABS: PTT Activated 22.4 sec (21.0-27.5); Prothrombin Time 9.9 sec (9.3-11.0)
[2020-10-07] MEDS: Ondansetron 4 MG/2 ML VIAL IVP (14:49)
[2020-10-07 14:57] LABS: ALT 17 U/L (14-59); AST 17 U/L (15-37); Albumin 3.5 g/dL (3.4-5.0); Alkaline Phosphatase 88 U/L (46-116); Anion Gap 11.2 mmol/L (3-11); BUN 18 mg/dL (7-18); Bilirubin, Total 0.5 mg/dL (0.2-1.0); CO2 23.8 mmol/L (21.0-32.0); CREATININE 1.22 mg/dL (0.55-1.02); Calcium 8.9 mg/dL (8.5-10.1); Chloride 102 mmol/L (98-107); Estimated GFR 43.08 (mL/min/1.73m2); Glucose 98 mg/dL (74-106); Magnesium 1.5 mg/dL (1.8-2.4); Potassium 4.5 mmol/L (3.5-5.1); Sodium 137 mmol/L (136-145); Total Protein 7.6 g/dL (6.4-8.2)
[2020-10-07 15:05] LABS: Troponin I < 0.05 ng/mL (<0.06)
[2020-10-07] MEDS: LORazepam 2 MG/ML VIAL 0.5 MG IVP (15:54)
[2020-10-07] MEDS: Normal Saline - Diluent 50 ML VIAL IV (17:13)
[2020-10-07] MEDS: Omnipaque 350 MG/ML 100 ML BTL IJ (17:13)
[2020-10-07] MEDS: Ketorolac 15 MG/ML VIAL IVP (17:44)
[2020-10-07] MEDS: ACETAMINOPHEN 1,000 MG/100 ML BTL 400 MG IVPB (17:44)
--- NOTE | 2020-10-07 17:45 | DI.VRAD_ITS ---
PROCEDURE INFORMATION: Exam: CT Head Without Contrast Exam date and time: 10/07/2020 5:07 PM Age: 75 years old Clinical indication: Patient HX: Fall lt sided trauma TECHNIQUE: Imaging protocol: Computed tomography of the head without contrast. Radiation optimization: All CT scans at this facility use at least one of these dose optimization techniques: automated exposure control; mA and/or kV adjustment per patient size (includes targeted exams where dose is matched to clinical indication); or iterative reconstruction. COMPARISON: No relevant prior studies available. FINDINGS: Brain: The ventricles and the cortical sulci are within normal limits for the patient's age. There is no evidence of acute hemorrhage, mass or shift. There is no evidence of an acute cortical or major vascular territory infarct. No abnormal extra-axial collections are identified. Cerebral ventricles: No significant ventricular enlargement/hydrocephalus. Bones/joints: There is no acute bony abnormality Paranasal sinuses: No significant sinus opacification or fluid level Mastoid air cells: No significant mastoid opacification Vasculature: Intracranial vascular calcification is noted but there is no evidence of hyperdense thrombus peripheral calcification at the level of the posterior aspect of the left sylvian fissure seen on series 6, image 20 7 May be vascular in location. In addition there is a calcification in the left frontal region on image 28 likely vascular as well. Soft tissues: Subcutaneous soft tissues are unremarkable IMPRESSION: No acute findings. PROCEDURE INFORMATION: Exam: CT Cervical Spine Without Contrast Exam date and time: 10/07/2020 5:07 PM Age: 75 years old Clinical indication: Patient HX: Fall lt sided trauma TECHNIQUE: Imaging protocol: Computed tomography images of the cervical spine without contrast. Radiation optimization: All CT scans at this facility use at least one of these dose optimization techniques: automated exposure control; mA and/or kV adjustment per patient size (includes targeted exams where dose is matched to clinical indication); or iterative reconstruction. COMPARISON: No relevant prior studies available. FINDINGS: Bones/joints: Bony structures are osteopenic. There is scoliosis. There is no evidence of an acute fracture in the cervical spine. There is no decrease of vertebral body height. No acute or destructive bony abnormality is identified. Discs/Spinal canal/Neural foramina: There is disc space narrowing in the cervical spine. It appears most prominent at C5-C6, C6-C7. There are disc osteophyte complexes, spondylitic changes of the endplates, uncovertebral and facet arthropathy. There is mild narrowing of the canal at the level of the disc spaces but no high-grade central spinal stenosis. There is foraminal stenosis most prominent at C5-C6, C6-C7. Soft tissues: There is no evidence of a discrete soft tissue mass in the neck. Lungs: Pleuroparenchymal scarring is seen at the lung apices. Evaluation of the lung apices is somewhat limited secondary to patient motion. IMPRESSION: Cervical spondylosis, disc disease. Scoliosis. No acute fracture in the cervical spine The Dictated and Authenticated by: Ashly Robertson MD. Ordering:REBECCA Phillips MD
[2020-10-07] MEDS: MAGNESIUM SULFATE 1 GM/100 ML BAG IVPB (18:05)
--- NOTE | 2020-10-07 18:11 | DI.VRAD_ITS ---
PROCEDURE INFORMATION: Exam: CT Chest With Contrast Exam date and time: 10/07/2020 1:57 PM Age: 75 years old Clinical indication: Other: Fall lt sided trauma TECHNIQUE: Imaging protocol: Computed tomography of the chest with intravenous contrast. Radiation optimization: All CT scans at this facility use at least one of these dose optimization techniques: automated exposure control; mA and/or kV adjustment per patient size (includes targeted exams where dose is matched to clinical indication); or iterative reconstruction. Contrast material: OMNI 350; Contrast volume: 100 ml; Contrast route: INTRAVENOUS (IV); COMPARISON: CT ABDOMEN PELVIS WO 09/02/2020 6:29 PM FINDINGS: Lungs: There are some nonspecific subpleural opacities anteriorly within the right upper lobe. Findings are nonspecific, possibly related to post treatment change/radiation. There is no lobar consolidation identified. There is no evidence of a discrete pulmonary parenchymal mass or nodule. There is no evidence of an endobronchial lesion. There is some mild volume loss within the right upper lobe Pleural space: No significant pleural effusion or pneumothorax Heart: The heart is enlarged. Aortic valve replacement is noted. There is no significant pericardial effusion. Pulmonary arteries: This examination was not specifically tailored for evaluation of the pulmonary arteries but no significant abnormality is identified. Aorta: Vascular calcification is seen within the thoracic aorta which is tortuous. There is no acute aortic abnormality Lymph nodes: No significant adenopathy. Bones/joints: Bony structures are osteopenic. There is mild thoracic kyphoscoliosis. There is no evidence of an acute fracture in the thoracic spine. There is no evidence of a significant or displaced rib fracture Soft tissues: There is an irregular soft tissue density noted within the right breast. This is best seen on series 5, image 33. It is also well seen on coronal reformatted image 32, series 7. It could be related to prior surgery. Clinical correlation recommended IMPRESSION: 1. No acute bony abnormality identified. 2. Irregular density in the right breast may be post surgical. Clinical correlation recommended. 3. There are some nonspecific subpleural opacities anteriorly in the right upper lobe, again nonspecific possibly related to prior treatment or radiation. There is no lobar consolidation 4. Large pleural effusion, or pneumothorax is not seen PROCEDURE INFORMATION: Exam: CT Abdomen And Pelvis With Contrast Exam date and time: 10/07/2020 1:57 PM Age: 75 years old Clinical indication: Other: Fall lt sided trauma TECHNIQUE: Imaging protocol: Computed tomography of the abdomen and pelvis with intravenous contrast. Radiation optimization: All CT scans at this facility use at least one of these dose optimization techniques: automated exposure control; mA and/or kV adjustment per patient size (includes targeted exams where dose is matched to clinical indication); or iterative reconstruction. Contrast material: OMNI 350; Contrast volume: 100 ml; Contrast route: INTRAVENOUS (IV); COMPARISON: CT ABDOMEN PELVIS WO 09/02/2020 6:29 PM FINDINGS: Liver: No focal intrahepatic abnormality is identified. Gallbladder and bile ducts: The patient has had prior cholecystectomy. There is biliary ductal dilatation. Common bile duct measures up to 14 mm in the periportal region as seen on series 5, image 57. There is no evidence of choledocholithiasis. There is mild prominence of central intrahepatic ducts. Pancreas: Pancreas is unremarkable The pancreatic duct is not significantly distended. There is no evidence of a discrete pancreatic mass. Spleen: Spleen is unremarkable Adrenal glands: Adrenals are unchanged. Mild adrenal thickening.. Kidneys and ureters: No radiopaque calculi. No hydronephrosis. No new renal cortical abnormality. Small cyst seen at the lower pole of the right kidney. Stomach and bowel: Patient has had prior colonic resection on the right. Evaluation of the bowel is limited without oral contrast but there is no evidence of obstruction, mass or pneumatosis. There are few colonic diverticuli but no evidence of acute diverticulitis Appendix: Appendix is not visualized presumably surgically absent. Intraperitoneal space: No free fluid focal collections or free intraperitoneal air is identified. Vasculature: Vascular calcification is seen in the abdomen, pelvis. The aorta is nonaneurysmal Lymph nodes: No significantly enlarged mesenteric or retroperitoneal nodes are identified. Urinary bladder: Bladder is unremarkable Reproductive: No significant uterine, adnexal abnormality Bones/joints: There is compression deformity and kyphosis in the upper lumbar spine. Compression deformity most prominently involves L1, with milder compression of L2. There are mild endplate compression deformities seen at L4, L5. This was also seen on the patient's prior exam. No definite new or acute bony abnormality is identified. Soft tissues: Postsurgical changes are seen involving the ventral abdominal wall. Small subcutaneous /incisional collection seen on the patient's prior examination has decreased in size now measuring approximately 2.3 cm in maximum diameter on series 5, image 85. IMPRESSION: No new or acute findings when compared with the patient's prior exam. Post surgical changes involving the ventral abdominal wall. Interval decrease in size of small midline subcutaneous incisional collection previously noted Multiple lumbar compression deformities unchanged when compared with the patient's prior exam. No new bony abnormality identified. Dictated and Authenticated by: Ashly Robertson MD. Ordering:REBECCA Phillips MD
== END 2020-10-07 19:50 | disposition home or self-care (01) ==
PROVIDERS: Physician Assistant; Emergency Provider Nurse Practitioner Acute Care; PCP Nurse Practitioner Family
DX: S20.212A Contusion of left front wall of thorax, initial encounter (principal); W18.39XA Other fall on same level, initial encounter; E83.42 Hypomagnesemia; F41.8 Other specified anxiety disorders; I10 Essential (primary) hypertension
CPT/HCPCS: 36415; 74177; 80053; 93005; 96365; 96375; 99285; 70450; 71045; 71260; 72125; 83735; 84484; 85025; 85610; 85730; 93010; J0131; J1885; J2060; J2405; J3010; J3475; J3490

== ENCOUNTER 2021-07-18 14:57 | Inpatient (IN) | payer MEDICARE, SELFPAY ==
[2021-07-18] VITALS (46 sets, daily range): BP systolic 77–165; BP diastolic 36–79; PULSE 69–104; RESP 14–32; TEMP 36–37.3; O2SAT 94–100
--- NOTE | 2021-07-18 15:00 | RT.EKG_ITS ---
APPROVED REPORT Exam: Resting ECG Reason for Exam: SOB Patient Location: E HR:99 bpm ECG Measurements Heart Rate 99 AXIS NH 160 P 65 QRSd 147 QRS 3 QT 385 T 134 QTc 494 Conclusion Sinus rhythm...normal P axis, V-rate 60- 99 Left bundle branch block...QRSd>120, broad/notched R ST elevation secondary to IVCD...Multiple VCG criteria. No STEMI. No change from previous. I have reviewed and interpreted ECG and agree with software generated interpretation.
--- NOTE | 2021-07-18 15:11 | W.ED.GENAD ---
Discharge Plan Disposition Patient Disposition: [facility] INPATIENT Condition: Stable Discharge Details Clinical Impression: Pancytopenia, Dyspnea on exertion Primary Care Provider: Tiana Romano ED Provider: Peyton Vega Home Meds and New Rx's Prescriptions: No Action acetaminophen [Tylenol Extra Strength] 500 mg tablet 1,000 mg PO ONCE PRNRF: 0 loperamide [Imodium A-D] 2 mg tablet 2 mg PO QID PRN (Reason: loose stool) Qty: 60 RF: 12 omeprazole 40 mg capsule,delayed release(DR/EC) 40 mg PO DAILY Qty: 30 RF: 12 metoprolol succinate 25 mg Tablet Extended Release 24 Hr 12.5 mg PO BID Qty: 30 RF: 0 aspirin [Aspir-Low] 81 mg Tablet,Delayed Release (Dr/Ec) RF: 0 Medical Decision Making 76-year-old female with a history of hypertension, GERD, severe aortic stenosis with TAVR in 2018, metastatic colon cancer, breast cancer presents for progressive dyspnea on exertion over the past 3 weeks. EKG notes a rate of 99, sinus, left bundle branch block and no acute change from previous EKG. Her vitals are within normal limits. Her oxygen saturation is 100% on room air. Her lungs are clear bilaterally without wheezing or rhonchi. No lower extremity edema. Differential diagnosis includes electrolyte abnormality, metabolic abnormality, ACS, acute CHF, pneumonia, pericardial effusion, valvular disease. Will place an IV, screening labs, chest x-ray. Labs and imaging reviewed. White blood cell count 1.36. Hemoglobin 5.8. Hematocrit 18.1. Platelet 7. Lactate 1.6. BNP 1874. Troponin negative. Review of patient's medications note that she is currently not on any chemotherapy. She has been treated for her metastatic colon and breast cancer with chemotherapy in the past. 2 units of PRBCs ordered. Will likely order platelets. Consult to [facility] heme-onc initiated. Discussed with [facility] heme-onc -- as patient is not on chemotherapy, questioning whether this is a potential bone marrow issue rather than an oncologic issue. Recommend DIC screen including LDH and peripheral smear. Also recommends obtaining iron studies, B12 and folate in addition to haptoglobin and reticulocyte count. No recommendations for transfusing platelets unless less than 5. Can transfuse for less than 10 if patient has a fever. Can transfuse for less than 50 if patient develops significant source of bleeding. Hemoccult negative. Discussed with patient and son regarding her results. Patient is agreeable with admission. Case discussed with hospitalist who accepts patient for admission Medical Records Medical records reviewed: Yes I reviewed the patient's medical records. Imaging Data Radiologic Study: Radiologist's impression: XR CHEST 2V PA LATERAL CLINICAL HISTORY: shortness of breath, r/o acute disease. TECHNIQUE: 2D digital imaging was performed. COMPARISON: CT CT CHEST/ABD/PEL W from 10/07/2020 CR,XR XR PORTABLE CHEST AP from 10/07/2020 FINDINGS: Heart size is normal. Aortic TAVR valve noted, unchanged in position. The mediastinum is not widened. Bilateral hyperinflation. Single surgical clips seen over the upper left lobe which may be axillary. No obvious infiltrates nor pleural effusions. No pulmonary edema. Compression fractures of L1 and L2 are noted, as evident on prior CT scan of October 2020. IMPRESSION: No acute pulmonary findings.Hyperinflation. No pulmonary edema. No pleural effusions. Aortic TAVR noted. Lab Data Lab results reviewed: Yes I reviewed the patient's lab results. Labs: Laboratory Tests Range/Units 07/18/21 07/18/21 07/18/21 15:17 15:17 15:17 WBC (4.4-10.8) 10^3/uL 1.36 L* RBC (3.93-5.22) 10^6/uL 1.72 L Hgb (11.2-15.7) g/dL 5.8 L* Hct (36.0-46.0) % 18.1 L* MCV (80-95) fL 105.2 H MCH (27.0-33.0) pg 33.7 H MCHC (32.0-36.0) % 32.0 RDW (11.7-14.6) % 16.2 H Plt Count (130-400) 10^3/uL 7 L* MPV (8.0-11.0) fL Reticulocyte % (Auto) (0.5-2.4) % Immature Gran % 1.5 Neutrophils % 66.9 Lymphocytes % 18.4 Monocytes % 13.2 Eosinophils % 0.0 Basophils % 0.0 Nucleated RBC % % 0 Absolute Neutrophils (1.2-6.7) 10^3/uL 0.91 L Absolute Lymphocytes (1.2-3.4) 10^3/uL 0.25 L Absolute Monocytes (0.1-0.8) 10^3/uL 0.18 Absolute Eosinophils (0.0-0.7) 10^3/uL 0.00 Absolute Basophils (0.0-0.2) 10^3/uL 0.00 RBC Morphology See Below Macrocytosis 3+ VBG Lactate (0.6-1.4) mmol/L 1.6 H Sodium (136-145) mmol/L 140 Potassium (3.5-5.1) mmol/L 3.9 Chloride (98-107) mmol/L 105 Carbon Dioxide (21.0-32.0) mmol/L 24.9 Anion Gap (3-11) mmol/L 10.1 BUN (7-18) mg/dL 20 H Creatinine (0.55-1.02) mg/dL 1.4 H Estimated GFR/1.73 m2 (mL/min/1.73m2) 36.66 Glucose (74-106) mg/dL 101 Calcium (8.5-10.1) mg/dL 9.2 Magnesium (1.8-2.4) mg/dL 2.1 Iron (50-170) ug/dL Ferritin (8-252) ng/mL Total Bilirubin (0.2-1.0) mg/dL 0.7 AST (15-37) U/L 11 L ALT (14-59) U/L 14 Alkaline Phosphatase (46-116) U/L 74 Lactate Dehydrogenase (81-234) U/L Troponin I (<0.06) ng/mL < 0.05 NT-Pro-B Natriuret Pep (<300) pg/mL 1874 H Total Protein (6.4-8.2) g/dL 7.6 Albumin (3.4-5.0) g/dL 3.5 Vitamin B12 (193-986) pg/mL Folate (8.6-20.0) ng/mL Pathology Consult Spec Patient ABO/Rh Antibody Screen Crossmatch Range/Units 07/18/21 07/18/21 07/18/21 15:17 15:17 15:17 WBC (4.4-10.8) 10^3/uL RBC (3.93-5.22) 10^6/uL Hgb (11.2-15.7) g/dL Hct (36.0-46.0) % MCV (80-95) fL MCH (27.0-33.0) pg MCHC (32.0-36.0) % RDW (11.7-14.6) % Plt Count (130-400) 10^3/uL MPV (8.0-11.0) fL Reticulocyte % (Auto) (0.5-2.4) % 2.8 H Immature Gran % Neutrophils % Lymphocytes % Monocytes % Eosinophils % Basophils % Nucleated RBC % % Absolute Neutrophils (1.2-6.7) 10^3/uL Absolute Lymphocytes (1.2-3.4) 10^3/uL Absolute Monocytes (0.1-0.8) 10^3/uL Absolute Eosinophils (0.0-0.7) 10^3/uL Absolute Basophils (0.0-0.2) 10^3/uL RBC Morphology Macrocytosis VBG Lactate (0.6-1.4) mmol/L Sodium (136-145) mmol/L Potassium (3.5-5.1) mmol/L Chloride (98-107) mmol/L Carbon Dioxide (21.0-32.0) mmol/L Anion Gap (3-11) mmol/L BUN (7-18) mg/dL Creatinine (0.55-1.02) mg/dL Estimated GFR/1.73 m2 (mL/min/1.73m2) Glucose (74-106) mg/dL Calcium (8.5-10.1) mg/dL Magnesium (1.8-2.4) mg/dL Iron (50-170) ug/dL 79 Ferritin (8-252) ng/mL 247 Total Bilirubin (0.2-1.0) mg/dL AST (15-37) U/L ALT (14-59) U/L Alkaline Phosphatase (46-116) U/L Lactate Dehydrogenase (81-234) U/L 789 H Troponin I (<0.06) ng/mL NT-Pro-B Natriuret Pep (<300) pg/mL Total Protein (6.4-8.2) g/dL Albumin (3.4-5.0) g/dL Vitamin B12 (193-986) pg/mL 191 L Folate (8.6-20.0) ng/mL 16.6 Pathology Consult Spec Patient ABO/Rh Antibody Screen Crossmatch Range/Units 07/18/21 07/18/21 16:15 16:50 WBC (4.4-10.8) 10^3/uL RBC (3.93-5.22) 10^6/uL Hgb (11.2-15.7) g/dL Hct (36.0-46.0) % MCV (80-95) fL MCH (27.0-33.0) pg MCHC (32.0-36.0) % RDW (11.7-14.6) % Plt Count (130-400) 10^3/uL MPV (8.0-11.0) fL Reticulocyte % (Auto) (0.5-2.4) % Immature Gran % Neutrophils % Lymphocytes % Monocytes % Eosinophils % Basophils % Nucleated RBC % % Absolute Neutrophils (1.2-6.7) 10^3/uL Absolute Lymphocytes (1.2-3.4) 10^3/uL Absolute Monocytes (0.1-0.8) 10^3/uL Absolute Eosinophils (0.0-0.7) 10^3/uL Absolute Basophils (0.0-0.2) 10^3/uL RBC Morphology Macrocytosis VBG Lactate (0.6-1.4) mmol/L Sodium (136-145) mmol/L Potassium (3.5-5.1) mmol/L Chloride (98-107) mmol/L Carbon Dioxide (21.0-32.0) mmol/L Anion Gap (3-11) mmol/L BUN (7-18) mg/dL Creatinine (0.55-1.02) mg/dL Estimated GFR/1.73 m2 (mL/min/1.73m2) Glucose (74-106) mg/dL Calcium (8.5-10.1) mg/dL Magnesium (1.8-2.4) mg/dL Iron (50-170) ug/dL Ferritin (8-252) ng/mL Total Bilirubin (0.2-1.0) mg/dL AST (15-37) U/L ALT (14-59) U/L Alkaline Phosphatase (46-116) U/L Lactate Dehydrogenase (81-234) U/L Troponin I (<0.06) ng/mL NT-Pro-B Natriuret Pep (<300) pg/mL Total Protein (6.4-8.2) g/dL Albumin (3.4-5.0) g/dL Vitamin B12 (193-986) pg/mL Folate (8.6-20.0) ng/mL Pathology Consult Spec Cancelled Patient ABO/Rh A Positive Antibody Screen NEGATIVE Crossmatch See Detail ECG Data Attestation: I personally reviewed and interpreted this ECG (s) as follows: Interpretation: Rate of 99, sinus, left bundle branch block. No acute change from previous EKG HPI General Mode of arrival: ambulatory. Date/Time Provider Initiated Documentation: 07/18/21 15:09. Limitations to Documentation: no limitations. Information obtained by: patient. HPI Narrative: Patient is a 76-year-old female with a history of hypertension, severe aortic stenosis with TAVR 2 years ago, CHF, metastatic colon cancer, breast cancer, GERD who presents with 3 weeks of progressively worsening shortness of breath and dyspnea on exertion. Patient states her shortness of breath limits her ambulation as she becomes more short of breath and dizzy the further she walks. She does admit to intermittent episodes of chest pain but denies any at present. She denies any fever, cough, vomiting, leg pain or swelling. Related Data Home Medications Medication Instructions Recorded Confirmed metoprolol succinate 12.5 mg PO BID #30 tab 04/16/20 07/18/21 acetaminophen 500 mg tablet 1,000 mg PO ONCE PRN tab 08/30/20 07/18/21 loperamide 2 mg tablet 2 mg PO QID PRN #60 tab 09/01/20 07/18/21 omeprazole 40 mg capsule,delayed 40 mg PO DAILY #30 cap 10/04/20 07/18/21 release aspirin [Aspir-Low] 07/18/21 Previous Rx's Medication Instructions Recorded metoprolol succinate 12.5 mg PO BID #30 tab 04/16/20 loperamide 2 mg tablet 2 mg PO QID PRN #60 tab 09/01/20 omeprazole 40 mg capsule,delayed 40 mg PO DAILY #30 cap 10/04/20 release Allergies Allergy/AdvReac Type Severity Reaction Status Date / Time morphine Allergy Intermediate Hives Unverified 07/18/21 15:09 General Stated Complaint: RespSymp JEANIE: 2 Review of Systems All systems reviewed & are unremarkable except as noted in HPI and below Constitutional Constitutional: Reports as per HPI, Denies chills and Denies fever(s) Eyes Eyes: Denies blurry vision ENT Ears, Nose, Mouth, and Throat: Reports dizziness, Denies sore throat and Denies throat swelling Cardiovascular Cardiovascular: Reports chest pain and Reports dyspnea Respiratory Respiratory: Denies cough and Reports dyspnea Gastrointestinal Gastrointestinal: Denies abdominal pain, Denies diarrhea and Denies vomiting Genitourinary Genitourinary: Denies hematuria and Denies dysuria Musculoskeletal Musculoskeletal: Denies back pain and Denies numbness Integumentary/Breasts Skin/Breast: Denies lesions and Denies rash Neurologic Neurologic: Reports dizziness, Denies localized weakness and Denies numbness Allergic/Immunologic Allergic/Immunologic: Denies throat swelling [facility] Medical History Acute CHF prior to TAVR. none since then Adenocarcinoma of right breast s/p Lumpectomy Advance directive on file Anemia Aortic stenosis, severe s/p TAVR Cancer of ascending colon metastatic to intra-abdominal lymph node S/p Right hemicolectomy Diarrhea Factitious hyperthyroidism GERD (gastroesophageal reflux disease) H/O malignant neoplasm of breast H/O malignant neoplasm of colon Hypertension Hypertension Hypomagnesemia Incarcerated incisional hernia Normocytic anemia Severe aortic stenosis s/p TAVR UTI (urinary tract infection) Yeast dermatitis Surgical History H/O cardiac catheterization H/O colonoscopy H/O heart valve replacement with porcine valve History of esophagogastroduodenoscopy (EGD) History of ventral hernia repair 07/01/19 at [facility] S/P cholecystectomy S/P recurrent ventral herniorrhaphy pt has [id number] polypropalene mesh implanted S/P right hemicolectomy S/p TAVR (transcatheter aortic valve replacement), bioprosthetic Status post closure of ileostomy Status post right breast lumpectomy Family History Mother Stroke Hypertension Son Diabetes type 2 Son Diabetes type 2 Father Cancer lung cancer - smoker Brother Cancer unknown type Social History (Reviewed 10/07/20 @ 14:01 by JONATAN Whitney Smoking/Tobacco Use Status: Former Tobacco Use Pack-years: 141 Tobacco: How many years used: 47 Smoking risk assessment performed?: Yes Alcohol Intake: former Drug use: Never Substance use type: does not use Current gender identity: female Do you feel safe at home: Yes Do you feel safe in your relationship?: Yes Exam Const General: cooperative and no acute distress HENMT Head: normal to inspection Face and sinus: normal facial exam Eyes General: appearance normal, both eyes and all related structures EOM: EOM intact bilaterally Neck Neck: normal visual inspection and No submandibular swelling Lymphatic: no lymphadenopathy noted Chest Chest: normal inspection of the chest and no tenderness Resp Effort & Inspection: normal respiratory effort and able to speak in complete sentences Auscultation: clear to auscultation bilaterally Cardio Rate: regular rate Rhythm: regular rhythm GI Inspection: normal to inspection Palpation: soft, not firm, not rigid and nontender Auscultation: normal bowel sounds Skin General skin exam: no rashes or lesions noted Neuro General: patient alert, patient awake and patient oriented x3 Cognition: normal cognition Speech: speech normal Motor: muscle tone normal throughout Sensory Exam: no sensory deficits noted Extrem General: normal to inspection, full ROM, capillary refill normal, no calf tenderness bilaterally and no edema Psych Appearance: grossly normal Mental Status: mental status grossly normal Speech and Movement: speech and movement normal Affect: normal affect Course Vital Signs Vital signs: Vital Signs Temperature 99.1 F 07/18/21 15:06 Pulse 104 H 07/18/21 15:06 Respiratory Rate 18 07/18/21 15:06 Blood Pressure 165/56 H 07/18/21 15:06 Temperature 99.1 F 07/18/21 15:06 Temperature Source Skin 07/18/21 15:06 Pulse 104 H 07/18/21 15:06 Respiratory Rate 18 07/18/21 15:06 Blood Pressure 165/56 H 07/18/21 15:06 Blood Pressure Position Supine 07/18/21 15:06 Oxygen Delivery Method Room Air 07/18/21 15:06 Oxygen Flow Rate 0 07/18/21 15:06 Pain Level 0 07/18/21 15:06
[2021-07-18 15:29] LABS: Lactate 1.6 mmol/L (0.6-1.4)
[2021-07-18 15:30] LABS: Abs Immature Grans 0.02 10^3/uL (0.0-0.06); Absolute Lymphocyte Count 0.25 10^3/uL (1.2-3.4); Absolute Monocyte Count 0.18 10^3/uL (0.1-0.8); Absolute Neutrophil Count 0.91 10^3/uL (1.2-6.7); Immature Grans % 1.5; Lymphocytes % 18.4; MCH 33.7 pg (27.0-33.0); MCV 105.2 fL (80-95); Monocytes % 13.2; Neutrophils % 66.9; Nucleated RBC 0 %; RBC 1.72 10^6/uL (3.93-5.22); RDW 16.2 % (11.7-14.6); RDW-SD 61.3 fL
--- NOTE | 2021-07-18 15:30 | DI.RAD_ITS ---
Exam(s) XR CHEST 2V PA LATERAL EXAM: XR CHEST 2V PA LATERAL CLINICAL HISTORY: shortness of breath, r/o acute disease. TECHNIQUE: 2D digital imaging was performed. COMPARISON: CT CT CHEST/ABD/PEL W from 10/07/2020 CR,XR XR PORTABLE CHEST AP from 10/07/2020 FINDINGS: Heart size is normal. Aortic TAVR valve noted, unchanged in position. The mediastinum is not widene d. Bilateral hyperinflation. Single surgical clips seen over the upper left lobe which may be axillary. No obvious infiltrates nor pleural effusions. No pulmonary edema. Compression fractures of L1 and L2 are noted, as evident on prior CT scan of October 2020. IMPRESSION: No acute pulmonary findings.Hyperinflation. No pulmonary edema. No pleural effusions. Aortic TAVR noted. DATA REPOSITORY: RADIATION DOSE DELIVERED:
[2021-07-18 15:58] LABS: ALT 14 U/L (14-59); AST 11 U/L (15-37); Albumin 3.5 g/dL (3.4-5.0); Alkaline Phosphatase 74 U/L (46-116); Anion Gap 10.1 mmol/L (3-11); BUN 20 mg/dL (7-18); Bilirubin, Total 0.7 mg/dL (0.2-1.0); CO2 24.9 mmol/L (21.0-32.0); CREATININE 1.4 mg/dL (0.55-1.02); Calcium 9.2 mg/dL (8.5-10.1); Chloride 105 mmol/L (98-107); Estimated GFR 36.66 (mL/min/1.73m2); Glucose 101 mg/dL (74-106); Magnesium 2.1 mg/dL (1.8-2.4); NT-proBNP 1874 pg/mL (<300); Potassium 3.9 mmol/L (3.5-5.1); Sodium 140 mmol/L (136-145); Total Protein 7.6 g/dL (6.4-8.2); Troponin I < 0.05 ng/mL (<0.06)
[2021-07-18 16:12] LABS: HGB 5.8 g/dL (11.2-15.7); WBC 1.36 10^3/uL (4.4-10.8)
[2021-07-18 16:18] LABS: HCT 18.1 % (36.0-46.0)
[2021-07-18 16:23] LABS: Macrocytosis 3+; Platelet Count 7 10^3/uL (130-400)
[2021-07-18 17:22] LABS: Iron 79 ug/dL (50-170)
[2021-07-18 17:28] LABS: Diff Comment Diff Reviewed
[2021-07-18 17:35] LABS: Reticulocyte 2.8 % (0.5-2.4)
[2021-07-18 18:01] LABS: Ferritin 247 ng/mL (8-252); Folate 16.6 ng/mL (8.6-20.0); Vitamin B12 191 pg/mL (193-986)
[2021-07-18 18:16] LABS: LDH 789 U/L (81-234)
[2021-07-18 18:42] LABS: Source Nasal/Nares
[2021-07-18 20:01] LABS: COVID-19 PCR Negative (Negative)
--- NOTE | 2021-07-18 20:16 | W.PM.HP.N ---
Date of service: 07/18/21 Time of Service: 20:16 Assessment and Plan Assessment and plan (1) Pancytopenia: Status: Acute Assessment and plan: Past h/o of metastatic colon cancer and breast cancer; no chemotherapy for 2 years. Likely bone marrow related. Peripheral smear, haptoglobin pending. Iron normal. B12 very low; avoiding IM replacement given risk of bleeding d/t thrombocytopenia. B12 could be given SC. Initiated po replacement at time of admission. Will need bone marrow bx most likely [place] [facility] [place]. CBC in AM. (2) GERD (gastroesophageal reflux disease): Status: Acute Assessment and plan: Cont home dose of omeprazole. (3) Adenocarcinoma of right breast: Status: Acute Assessment and plan: Past history of breast CA. S/P lumpectomy. (4) Cancer of ascending colon metastatic to intra-abdominal lymph node: Status: Acute Assessment and plan: Pancytopenia finding is concerning for possible metastatic process to bone marrow vs myelodysplastic process. (5) Hypertension: Status: Chronic Assessment and plan: Cont metoprolol XL 12.5 mg BID Monitor. (6) History of aortic valve replacement with bioprosthetic valve: Status: Acute Assessment and plan: Planning echo given elevated NTproBNP. Valve will be evaluated. History of Present Illness History of Present Illness Chief Complaint: Shortness of breath. Narrative: This is a 76 yo female with a PMH of metastatic colon cancer, breast cancer, HTN, severe aortic stenosis s/p TAVR, CHF, GERD. She presented to the ED with c/o 3 weeks of worsening shortness of air and dyspnea on exertion. She has also noted feeling lightheaded with ambulation. No vertigo. She has noted intermittent short episodes of chest pain. No palpitations. No cough/fever/chills. No pedal edema. She denied melena or hematochezia. Her ED w/u was remarkable for a WBC count of 1.36, Hgb 5.8, Platelets 7. Neutrophils low at 0.91. CBC in October of 2020 was normal. Her reticulocyte was high at 2.8. LDH elevated at 789. Total and conjugated bilirubin normal. CRP >25. Haptoglobin pending. Iron 79. B12 low at 191. Folate normal 16.6. Hemeoccult was negative. VS were normal. RA O2 saturation of 100%. CXR w/o any acute processes. ED physician discussed this case [place] [facility]. They recommended DIC screen and a peripheral smear. Transfuse platelets if less than 5 or if a fever develops and platelets are less than 10, or if less than 50 and bleeding occurs. She was transfused 2 units of RBCs. Review of Systems All systems reviewed & are unremarkable except as noted in HPI and below PFSH Medical History Acute CHF prior to TAVR. none since then Adenocarcinoma of right breast s/p Lumpectomy Advance directive on file Anemia Aortic stenosis, severe s/p TAVR Cancer of ascending colon metastatic to intra-abdominal lymph node S/p Right hemicolectomy Diarrhea Factitious hyperthyroidism GERD (gastroesophageal reflux disease) H/O malignant neoplasm of breast H/O malignant neoplasm of colon Hypertension Hypertension Hypomagnesemia Incarcerated incisional hernia Normocytic anemia Severe aortic stenosis s/p TAVR UTI (urinary tract infection) Yeast dermatitis Surgical History H/O cardiac catheterization H/O colonoscopy H/O heart valve replacement with porcine valve History of esophagogastroduodenoscopy (EGD) History of [place] [facility] S/P recurrent ventral herniorrhaphy pt has [id number] polypropalene mesh implanted S/P right hemicolectomy S/p TAVR (transcatheter aortic valve replacement), bioprosthetic Status post closure of ileostomy Status post right breast lumpectomy Family History Mother Stroke Hypertension Son Diabetes type 2 Son Diabetes type 2 Father Cancer lung cancer - smoker Brother Cancer unknown type Social History Smoking/Tobacco Use Status: Former Tobacco Use Pack-years: 141 Tobacco: How many years used: 47 Smoking risk assessment performed?: Yes Alcohol Intake: former Drug use: Never Substance use type: does not use Current gender identity: female Do you feel safe at home: Yes Do you feel safe in your relationship?: Yes Meds Allergies and Home Medications Allergies Allergy/AdvReac Type Severity Reaction Status Date / Time morphine Allergy Intermediate Hives Unverified 07/18/21 15:09 Home Medications Medication Instructions Recorded Confirmed Type metoprolol succinate 12.5 mg PO BID #30 tab 04/16/20 07/18/21 Rx acetaminophen 500 mg tablet 1,000 mg PO ONCE PRN tab 08/30/20 07/18/21 History loperamide 2 mg tablet 2 mg PO QID PRN #60 tab 09/01/20 07/18/21 Rx omeprazole 40 mg capsule,delayed 40 mg PO DAILY #30 cap 10/04/20 07/18/21 Rx release aspirin [Aspir-Low] 07/18/21 History Exam Const General: cooperative and no acute distress Nutritional Appearance: overweight Orientation: alert and oriented x3 HENMT Head: normocephalic and atraumatic Eyes Conjunctivae: conjunctival abnormality bilaterally pallor Pupils: PERRL Resp Effort & Inspection: normal respiratory effort Auscultation: clear to auscultation bilaterally Cardio Rate: regular rate Rhythm: regular rhythm Heart Sounds: S1 normal and S2 normal GI Palpation: soft and nontender Auscultation: normal bowel sounds Skin General skin exam: no rashes or lesions noted Extrem General: no pedal edema and no calf tenderness Psych Appearance: grossly normal Mental Status: mental status grossly normal Speech and Movement: speech and movement normal Affect: normal affect Results Labs Result diagrams: 07/18/21 15:17 07/18/21 15:17 Labs: Laboratory Results - last 24 hr 07/18/21 07/18/21 07/18/21 15:17 15:17 15:17 WBC 1.36 L* RBC 1.72 L Hgb 5.8 L* Hct 18.1 L* MCV 105.2 H MCH 33.7 H MCHC 32.0 RDW 16.2 H Plt Count 7 L* MPV Reticulocyte % (Auto) Immature Gran % 1.5 Neutrophils % 66.9 Lymphocytes % 18.4 Monocytes % 13.2 Eosinophils % 0.0 Basophils % 0.0 Nucleated RBC % 0 Absolute Neutrophils 0.91 L Absolute Lymphocytes 0.25 L Absolute Monocytes 0.18 Absolute Eosinophils 0.00 Absolute Basophils 0.00 RBC Morphology See Below Macrocytosis 3+ VBG Lactate 1.6 H Sodium 140 Potassium 3.9 Chloride 105 Carbon Dioxide 24.9 Anion Gap 10.1 BUN 20 H Creatinine 1.4 H Estimated GFR/1.73 m2 36.66 Glucose 101 Calcium 9.2 Magnesium 2.1 Iron Ferritin Total Bilirubin 0.7 AST 11 L ALT 14 Alkaline Phosphatase 74 Lactate Dehydrogenase Troponin I < 0.05 NT-Pro-B Natriuret Pep 1874 H Total Protein 7.6 Albumin 3.5 Vitamin B12 Folate COVID-19 Source SARS-CoV-2 (PCR) Pathology Consult Spec Patient ABO/Rh Antibody Screen Crossmatch 07/18/21 07/18/21 07/18/21 15:17 15:17 15:17 WBC RBC Hgb Hct MCV MCH MCHC RDW Plt Count MPV Reticulocyte % (Auto) 2.8 H Immature Gran % Neutrophils % Lymphocytes % Monocytes % Eosinophils % Basophils % Nucleated RBC % Absolute Neutrophils Absolute Lymphocytes Absolute Monocytes Absolute Eosinophils Absolute Basophils RBC Morphology Macrocytosis VBG Lactate Sodium Potassium Chloride Carbon Dioxide Anion Gap BUN Creatinine Estimated GFR/1.73 m2 Glucose Calcium Magnesium Iron 79 Ferritin 247 Total Bilirubin AST ALT Alkaline Phosphatase Lactate Dehydrogenase 789 H Troponin I NT-Pro-B Natriuret Pep Total Protein Albumin Vitamin B12 191 L Folate 16.6 COVID-19 Source SARS-CoV-2 (PCR) Pathology Consult Spec Patient ABO/Rh Antibody Screen Crossmatch 07/18/21 07/18/21 07/18/21 16:15 16:50 18:39 WBC RBC Hgb Hct MCV MCH MCHC RDW Plt Count MPV Reticulocyte % (Auto) Immature Gran % Neutrophils % Lymphocytes % Monocytes % Eosinophils % Basophils % Nucleated RBC % Absolute Neutrophils Absolute Lymphocytes Absolute Monocytes Absolute Eosinophils Absolute Basophils RBC Morphology Macrocytosis VBG Lactate Sodium Potassium Chloride Carbon Dioxide Anion Gap BUN Creatinine Estimated GFR/1.73 m2 Glucose Calcium Magnesium Iron Ferritin Total Bilirubin AST ALT Alkaline Phosphatase Lactate Dehydrogenase Troponin I NT-Pro-B Natriuret Pep Total Protein Albumin Vitamin B12 Folate COVID-19 Source Nasal/Nares SARS-CoV-2 (PCR) Negative Pathology Consult Spec Cancelled Patient ABO/Rh A Positive Antibody Screen NEGATIVE Crossmatch See Detail Last Vital Signs Temp 36.8 C 07/18/21 19:43 Pulse 93 H 07/18/21 19:43 Resp 20 07/18/21 19:43 BP 111/67 07/18/21 19:43 Pulse Ox 99 07/18/21 19:43
[2021-07-18] MEDS: Metoprolol CR 25 MG TABCR 12.5 MG PO (20:53)
[2021-07-18 21:03] LABS: INR 1.1 (0.9-1.1); Prothrombin Time 10.7 sec (9.3-11.0)
[2021-07-19] VITALS (7 sets, daily range): BP systolic 117–142; BP diastolic 68–80; PULSE 74–89; RESP 16–19; TEMP 36.3–37.5; O2SAT 95–99
[2021-07-19 07:17] LABS: Abs Immature Grans 0.03 10^3/uL (0.0-0.06); Absolute Basophil Count 0.01 10^3/uL (0.0-0.2); HCT 27.2 % (36.0-46.0); HGB 9.1 g/dL (11.2-15.7); MCH 31.9 pg (27.0-33.0); MCHC 33.5 % (32.0-36.0); MCV 95.4 fL (80-95); Nucleated RBC 0 %; RBC 2.85 10^6/uL (3.93-5.22); RDW-SD 61.4 fL
[2021-07-19 07:26] LABS: Prothrombin Time 10.4 sec (9.3-11.0)
[2021-07-19 07:47] LABS: Anion Gap 10.8 mmol/L (3-11); BUN 19 mg/dL (7-18); CO2 24.2 mmol/L (21.0-32.0); CREATININE 1.1 mg/dL (0.55-1.02); Calcium 8.6 mg/dL (8.5-10.1); Chloride 106 mmol/L (98-107); Estimated GFR 48.42 (mL/min/1.73m2); Glucose 86 mg/dL (74-106); Potassium 4.2 mmol/L (3.5-5.1); Sodium 141 mmol/L (136-145)
[2021-07-19] MEDS: Metoprolol CR 25 MG TABCR 12.5 MG PO ×2 (07:54→20:41)
[2021-07-19] MEDS: Cyanocobalamin 500 MCG TAB 1000 MCG PO (07:54)
[2021-07-19] MEDS: Omeprazole 20 MG CAPCR 40 MG PO (07:54)
[2021-07-19 07:55] LABS: Absolute Eosinophil Count 0.04 10^3/uL (0.0-0.7); Absolute Lymphocyte Count 0.23 10^3/uL (1.2-3.4); Absolute Neutrophil Count 0.88 10^3/uL (1.2-6.7)
[2021-07-19 07:56] LABS: Diff Comment Manual Differential; Hypochromasia 2+
[2021-07-19 07:58] LABS: WBC 1.26 10^3/uL (4.4-10.8)
[2021-07-19 08:01] LABS: Atypical Lymphocytes % 3; Platelet Count 6 10^3/uL (130-400)
--- NOTE | 2021-07-19 09:28 | INITIAL_ITS ---
- If Service Date Differs Date of service: 07/19/21 Time of Service: 09:28 Care Management Initial Assess REASON FOR HOSPITALIZATION:: Pancytopenia, Dyspnea on exertion PAST MEDICAL HISTORY/PAST SURGICAL HISTORY:: Medical History . Acute CHF. prior to TAVR. none since then. Adenocarcinoma of right breast. s/p Lumpectomy. Advance directive on file. Anemia. Aortic stenosis, severe. s/p TAVR. Cancer of ascending colon metastatic to intra-abdominal lymph node. S/p Right hemicolectomy. Diarrhea. Factitious hyperthyroidism. GERD (gastroesophageal reflux disease). H/O malignant neoplasm of breast. H/O malignant neoplasm of colon. Hypertension. Hypertension. Hypomagnesemia. Incarcerated incisional hernia. Normocytic anemia. Severe aortic stenosis. s/p TAVR. UTI (urinary tract infection). Yeast dermatitis. Surgical History . H/O cardiac catheterization. H/O colonoscopy. H/O heart valve replacement with porcine valve. History of esophagogastroduodenoscopy (EGD). History of ventral hernia repair. 07/01/19 at [facility] [place]. S/P cholecystectomy. S/P recurrent ventral herniorrhaphy. pt has [id number] polypropalene mesh implanted. S/P right hemicolectomy. S/p TAVR (transcatheter aortic valve replacement), bioprosthetic. Status post closure of ileostomy. Status post right breast lumpectomy PREVIOUS FUNCTIONAL STATUS/SOCIAL/FAMILY SUPPORTS:: Polina lives in [facility] with her son, daugther in law, and grand daughter. 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 She is currently on social security. Polina is independent at baseline, but does not drive. They do not currently have a running car at her household, however her sister in-law Neisha Murdock transports her to appointments. CURRENT FUNCTIONAL STATUS:: Polina was sitting up in bed when CM met with her. She reported that she's feeling ok other than shortness of breath with exertion. ADVANCE DIRECTIVES:: None on file Has patient been provided with info about the portal/API?: Yes Did the patient sign up for the portal?: No CODE STATUS:: Full Code INSURANCE COVERAGE / FINANCIAL ISSUES:: Medicare CURRENT HOME/COMMUNITY SERVICES/EQUIPMENT:: Has a rolling walker and meals on wheels PRIMARY CARE PHYSICIAN:: Tiana Julian PATIENT/FAMILY EDUCATION NEEDS:: Review discharge instructions and plan to follow up with outpatient providers, ask me three. TRANSPORTATION:: Via private vehicle with sister in law Neisha Murdock. PLAN:: Discharge home when medically cleared with no new services, follow up with community providers. CM continues to support.
[2021-07-19] MEDS: Loperamide 2 MG CAP 4 MG PO (10:44)
--- NOTE | 2021-07-19 10:55 | DI.US_ITS ---
APPROVED REPORT EXAM: Comprehensive 2D, Doppler, and color-flow Echocardiogram Patient Location: In-Patient Room/Bed: 230 Quarter Folder: Tyesha Orona RDCS (AE) Indications: Elevated BNP, BLACKMAN, h/o TAVR Other Information Study Quality: Fair. Technically limited study due to body habitus. Conclusion Left Ventricle : The left ventricle is normal size. Left ventricular systolic function is mildly decr eased. There is normal left ventricular wall thickness. Regional wall motion abnormalities are noted. The left ventricular diastolic function is normal. LVEF is 46%. Right Ventricle : The right ventricle is normal size. The right ventricular systolic function is norm al. Atria : The left atrium size is normal. The right atrium size is normal. Aortic Valve : Bioprosthetic aortic valve is present. It appears well-seated. Trace aortic regurgita tion. There is no aortic valvular stenosis. Great Vessels : The aortic root is normal in size. The ascending aorta is mildly dilated. Aortic arch is not well visualized. IVC is normal in size and collapses >50% with inspiration. Compared to study from 05/08/2020, the patient's overall LV function is similar. The inferior septum a ppears to be severely hypokinetic as compared to the rest of the wall segments which are just mildly hypokinetic. The previous study was of poor enough quality that I cannot tell whether or not this is a new change. Wall motion Left Ventricle The left ventricle is normal size. Left ventricular systolic function is mildly decreased. There is n ormal left ventricular wall thickness. Regional wall motion abnormalities are noted. The left ventric ular diastolic function is normal. There is no ventricular septal defect visualized. LVEF is 46%. Right Ventricle The right ventricle is normal size. The right ventricular systolic function is normal. Atria The left atrium size is normal. The right atrium size is normal. The interatrial septum is intact wit h no evidence for an atrial septal defect. Aortic Valve Bioprosthetic aortic valve is present. It appears well-seated. There is no aortic valvular stenosis. Trace aortic regurgitation. Mitral Valve Mild mitral annular calcification. No evidence of mitral valve stenosis. Mild mitral regurgitation. Tricuspid Valve The tricuspid valve is normal in structure. There is no tricuspid valve stenosis. Trace tricuspid reg urgitation. Unable to assess PA pressure. Pulmonic Valve Pulmonic valve is not well visualized. There is no pulmonic valvular stenosis. Trace to mild pulmonic regurgitation. Great Vessels The aortic root is normal in size. The ascending aorta is mildly dilated. Aortic arch is not well vis ualized. IVC is normal in size and collapses >50% with inspiration. Pericardium There is no pericardial effusion. 2D Dimensions IVSD d PLAX 0.95 cm F: 0.6-1.0 LV Vol A2C d MOD 91.2 mL LVPW d PLAX 0.96 cm F: 0.6 - 1.0 LV Vol A4C d MOD 89.3 mL LVID d PLAX 4.88 cm F: 3.8 - 5.2 LA vol/ BSA A2C s A-L 19.4 mL/m2 LVDs 3.65 cm F: 2.2 - 3.5 LA vol/ BSA A4C s A-L 11.9 mL/m2 Ao Root d 2.22 cm F: 2.7 - 3.3 LA Vol/ BSA Biplane s A-L 15.7 mL/m2 RA Area A4C 14.58 cm2 LA Area A4C s MOD 10.18 cm2 RA Vol/ BSA A4C s A-L 21.0 mL/m2 LA Area A2C s MOD 13.46 cm2 Ao Asc Diam d 3.29 cm F: 2.3 - 3.1 LV EF A4C MOD 46.8 % LV EF Teichholz 49.6 % LV EF A2C MOD 45.4 % LVEF (Root's) 46.80 % F: 54 - 74 LV EF Biplane MOD 46.8 % LV Volume 72.82 mL F: 46 - 106 SV 43.00 mL LV Volume Index 42.58 mL/m2 F: 29 - 61 SV Index 25.16 mL/m2 LV Vol Biplane MOD 91.9 mL FS 25.15 % M-Mode TAPSE 2.27 cm (M/F) >1.7 LV Diastology MV E' medial 0.099 (>0.07 m/s) E/A Ratio 0.7 LV E/e MED 8.10 (<14) MV E Vmax 0.80 (0.4-1.3 m/s) MV E' lateral 0.070 (>0.1 m/s) MV A Vmax 1.20 (0.4-1.3 m/s) LV E/e LAT 11.40 (<14) MV E/A Ratio 0.65 MV E/E' medial 8.14 MV E/E' lateral 11.42 Aortic Valve LVOT Area 2.75 cm2 AoV Area Vmax 1.74 cm2 LVOT Vmax 1.19 m/s AoV Area/ BSA (Vmax) 1.02 cm2/m2 LVOT Mean Nikolas. 0.73 m/s CHAPITO Mean Nikolas. 1.67 cm2 LVOT Peak Grad 5.7 mmHg CHAPITO Mean Nikolas. Index 0.98 cm2/m2 LVOT Mean Grad 2.6 mmHg AR DT 1629 msec LVOT VTI 0.238 m AR PHT 472 msec LVOT Diam s 1.85 cm AoV Vmax 1.88 m/s Velocity Ratio 0.63 AoV Mean Nikolas. 1.20 m/s AoV Peak Grad 14.2 mmHg LVOT SV 65.41 mL AoV Mean Grad 6.9 mmHg AoV VTI 0.344 m AoV Area VTI 1.90 cm2 AoV Area/ BSA (VTI) 1.11 cm/m2 Mitral Valve MV DT 243 (160-240 msec) MR Vmax 4.84 m/s MV PHT 71 msec MR VTI 1.802 m MV Area PHT 3.12 cm2 MR Peak Grad 93.7 mmHg MV VTI 0.371 m MR Mean Grad 59.2 mmHg MV VTI Annulus 0.365 m MR PISA Radius 0.43 cm MV Area VTI 1.74 (4.0-6.0 cm2) MR EROA 0.08 cm2 MR Aliasing Velocity 0.35 m/s MR PISA 1.15 cm2 Pulmonary Valve PV Vmax 0.92 (0.5-1.5 m/s) RVOT Peak Gr. 2.40 mmHg PV Peak Grad 3.4 mmHg RVOT Mean Gr. 1.40 mmHg PV Mean Grad 2.1 mmHg RVOT VTI 0.156 m PV VTI 0.235 m RVOT Vmax 0.78 m/s
[2021-07-19] MEDS: Loperamide 2 MG CAP PO (13:10)
[2021-07-19] MEDS: Ondansetron O.D.T. 4 MG TABEF PO (13:44)
--- NOTE | 2021-07-19 15:36 | PGE_ITS ---
Date of Service Date of service: 07/19/21 Time of Service: 15:36 Assessment and Plan Assessment and plan (1) Pancytopenia: Status: Acute Assessment and plan: ddx: MDS from her prior chemotherapy and radiation; metastatic cancer w/ bone marrow infiltration; new myeloid cancer; she needs a bone marrow biopsy which our surgeons do not perform. I will continue to monitor her counts. Per Dr. Hayes, [facility] heme/onc did not want her to receive platelets despite her platelets being only 7,000. I will get CT abdome/pelvis and chest given her hx of colon and breast cancer (2) Dyspnea on exertion: Status: Acute Assessment and plan: dypsnea was probably d/t her anemia and has improved. echo was done d/t her TAVR and elevated BNP of 1874. Echo demonstrated mild LV systolic dysfunction w/ LVEF 46% and diffuse hypokinesis except that her inferior septum is severely hypokinetic. RV size and function are normal. Overall her function is similar to her echo from 05/08/20 other than the septal wall hypokinesis. Check CT chest w/ contrast. (3) Diarrhea: Status: Acute Assessment and plan: check stool studies (heme test, fecal bacterial antigens, C. diff, lactoferrin); check CT abdomen and pelvis Qualifiers: Diarrhea type: unspecified type Qualified Code(s): R19.7 - Diarrhea, unspecified Subjective Subjective Interval history since last seen: Patient presented last night w/ dyspnea, weakness and diarrhea. Onset has been over last past couple weeks but became watery in the last few days. No recent antibiotic use nor hospitalizations. 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 No exertional chest pain/pressure. No fevers but she has had night and day sweats for past few months. She has had 6 lbs wt loss over past few months. She is a survivor of breast cancer and colon cancer. She is s/p lumpectomy and radiation treatment of her right breast and s/p partial colectomy and chemotherapy. Both she says were about 2017 and treated at [facility]. She denies any hx of DE or CHF but she has hx of TAVR for severe aortic stenosis. Workup last night included CXR which showed bilateral hyperinflated lung pattern but no CHF or effusions and no cardiomegaly and no infiltrates or masses. TAVR is seen on her CXR. Labs were remarkable for pancytopenia w/ WBC 1360, Hb 5.8 gm, Hct 18% w/ macrocytosis and platelets 7,000. She was transfused 2 units of PRBC and her hemoglobin and hematocrit are up to 9.1 gm and 27%. WBC and platelest are still low. CMP last night: BUN 20 and creatinine 1.4, iron normal 79 but LDH 789, (AST, ALT, alk. phos. total bili all normal). Troponin I negative. BNP elevated at 1874. EKG sinus rhythm 99 bpm w/ LBBB. Patient states her diarrhea is watery but no melena nor hematochezia. She has been nauseated throughout the day. She was given imodium this morning per her request for her diarrhea. Exam Narrative Exam Narrative: Short elderly female who is sitting up at the bedside looks chronically ill but not toxic. She does appear to be nauseated and is holding an emesis bag. HEENT: no cervical lymphadenopathy; no JVD Lungs: clear to ausculatation w/ prolonged expiratory phase w/out wheezes or rales Heart: RRR no appreciable murmur or rub Abdomen: soft, nontender; could not discern any palpable organomegaly or masses Extremties: no edema.she has ecchymoses on her arms Breast exam: she has scar over the right breast at 9 oclock but otherwise no palpable masses and no nipple changes and no skin changes. She is s/p lymphadenectomy from her right axilla; left breast revealed no masses and no axillary adenopathy Objective Last Vital Signs Temp 36.7 C 07/19/21 11:49 Pulse 82 07/19/21 11:49 Resp 17 07/19/21 11:49 BP 133/80 07/19/21 11:49 Pulse Ox 99 07/19/21 11:49 Laboratory Results - last 24 hr 07/18/21 07/18/21 07/18/21 15:17 15:17 15:17 WBC 1.36 L* RBC 1.72 L Hgb 5.8 L* Hct 18.1 L* MCV 105.2 H MCH 33.7 H MCHC 32.0 RDW 16.2 H Plt Count 7 L* MPV Reticulocyte % (Auto) Immature Gran % 1.5 Neutrophils % 66.9 Lymphocytes % 18.4 Atypical Lymphs % Monocytes % 13.2 Eosinophils % 0.0 Basophils % 0.0 Nucleated RBC % 0 Absolute Neutrophils 0.91 L Absolute Lymphocytes 0.25 L Absolute Monocytes 0.18 Absolute Eosinophils 0.00 Absolute Basophils 0.00 RBC Morphology See Below Hypochromasia Macrocytosis 3+ PT INR Sodium 140 Potassium 3.9 Chloride 105 Carbon Dioxide 24.9 Anion Gap 10.1 BUN 20 H Creatinine 1.4 H Estimated GFR/1.73 m2 36.66 Glucose 101 Calcium 9.2 Magnesium 2.1 Iron 79 Ferritin Total Bilirubin 0.7 AST 11 L ALT 14 Alkaline Phosphatase 74 Lactate Dehydrogenase Troponin I < 0.05 NT-Pro-B Natriuret Pep 1874 H Total Protein 7.6 Albumin 3.5 Vitamin B12 Folate COVID-19 Source SARS-CoV-2 (PCR) Pathology Consult Spec Patient ABO/Rh Antibody Screen Crossmatch 07/18/21 07/18/21 07/18/21 15:17 15:17 16:15 WBC RBC Hgb Hct MCV MCH MCHC RDW Plt Count MPV Reticulocyte % (Auto) 2.8 H Immature Gran % Neutrophils % Lymphocytes % Atypical Lymphs % Monocytes % Eosinophils % Basophils % Nucleated RBC % Absolute Neutrophils Absolute Lymphocytes Absolute Monocytes Absolute Eosinophils Absolute Basophils RBC Morphology Hypochromasia Macrocytosis PT INR Sodium Potassium Chloride Carbon Dioxide Anion Gap BUN Creatinine Estimated GFR/1.73 m2 Glucose Calcium Magnesium Iron Ferritin 247 Total Bilirubin AST ALT Alkaline Phosphatase Lactate Dehydrogenase 789 H Troponin I NT-Pro-B Natriuret Pep Total Protein Albumin Vitamin B12 191 L Folate 16.6 COVID-19 Source SARS-CoV-2 (PCR) Pathology Consult Spec Patient ABO/Rh A Positive Antibody Screen NEGATIVE Crossmatch See Detail 07/18/21 07/18/21 07/18/21 16:50 18:39 20:45 WBC RBC Hgb Hct MCV MCH MCHC RDW Plt Count MPV Reticulocyte % (Auto) Immature Gran % Neutrophils % Lymphocytes % Atypical Lymphs % Monocytes % Eosinophils % Basophils % Nucleated RBC % Absolute Neutrophils Absolute Lymphocytes Absolute Monocytes Absolute Eosinophils Absolute Basophils RBC Morphology Hypochromasia Macrocytosis PT 10.7 INR 1.1 Sodium Potassium Chloride Carbon Dioxide Anion Gap BUN Creatinine Estimated GFR/1.73 m2 Glucose Calcium Magnesium Iron Ferritin Total Bilirubin AST ALT Alkaline Phosphatase Lactate Dehydrogenase Troponin I NT-Pro-B Natriuret Pep Total Protein Albumin Vitamin B12 Folate COVID-19 Source Nasal/Nares SARS-CoV-2 (PCR) Negative Pathology Consult Spec Cancelled Patient ABO/Rh Antibody Screen Crossmatch 07/19/21 07/19/21 07/19/21 06:53 06:53 06:53 WBC 1.26 L* RBC 2.85 L Hgb 9.1 L D Hct 27.2 L D MCV 95.4 H D MCH 31.9 MCHC 33.5 RDW 18.0 H Plt Count 6 L* MPV Reticulocyte % (Auto) Immature Gran % See Differential Neutrophils % 70.0 Lymphocytes % 15.0 Atypical Lymphs % 3 Monocytes % 8.0 Eosinophils % 3.0 Basophils % 1.0 Nucleated RBC % 0 Absolute Neutrophils 0.88 L Absolute Lymphocytes 0.23 L Absolute Monocytes 0.10 Absolute Eosinophils 0.04 Absolute Basophils 0.01 RBC Morphology See Below Hypochromasia 2+ Macrocytosis PT 10.4 INR 1.0 Sodium 141 Potassium 4.2 Chloride 106 Carbon Dioxide 24.2 Anion Gap 10.8 BUN 19 H Creatinine 1.1 H Estimated GFR/1.73 m2 48.42 Glucose 86 Calcium 8.6 Magnesium Iron Ferritin Total Bilirubin AST ALT Alkaline Phosphatase Lactate Dehydrogenase Troponin I NT-Pro-B Natriuret Pep Total Protein Albumin Vitamin B12 Folate COVID-19 Source SARS-CoV-2 (PCR) Pathology Consult Spec Patient ABO/Rh Antibody Screen Crossmatch
[2021-07-19] MEDS: Lactated Ringers 1,000 ML 85 ML IV (15:52)
--- NOTE | 2021-07-19 18:20 | DI.CT_ITS ---
Exam(s) CT CHEST/ABD/PEL W EXAM: CT CHEST/ABD/PEL W CLINICAL HISTORY: weight loss, night sweats, diarrhea, dyspnea TECHNIQUE: Imaging Protocol: Axial computed tomography images with coronal and sagittal reformatted images were created and reviewed CONTRAST MATERIAL: Intravenous: Omnipaque 350 Contrast volume:100 mL Oral: Yes COMPARISON: CT CT CHEST/ABD/PEL W from 10/07/2020 FINDINGS: CHEST: Tracheobronchial tree: Patent where visualized. Pulmonary parenchyma: Ground-glass opacity in the right upper lobe. Small areas of consolidation in the right upper lobe. 6 mm nodule has developed in the superior segment of the left lower lobe. Visualized thyroid gland: Unremarkable. Mediastinum and Celia: No dominant adenopathy or fluid collection. Pleura: No effusion or pneumothorax. Heart: The heart is not dilated. Mild coronary artery calcification. No pericardial effusion.Aortic valve prosthesis. Aorta: Thoracic aorta non-dilated. Mild atherosclerosis. Lymph nodes: Within normal limits. Soft tissues: Unremarkable. Bones:Within normal limits for the patient's age. Old sternal rib fracture. Interval development of lucent lesions in the T3 and T5 vertebral bodies. ABDOMEN: Liver: Normal density. There are few tiny hypodensities scattered in the liver. They are too small f or further characterization, but likely reflect small cysts. Portal, Superior Mesenteric, and Splenic Veins: Unremarkable. Gallbladder and Biliary Tract: Status post cholecystectomy. No biliary ductal dilatation. Pancreas: Normal density, no abnormal calcifications or inflammatory process. Spleen: There is a stable peripherally enhancing mass in the superior aspect of the spleen likely ref lecting a hemangioma. Adrenals: No masses seen. Kidneys: Normal size, contour and axis. No radiodense stones or obstructive uropathy. There is a stab le simple cyst in the lower pole of the right kidney. No follow-up is recommended. Abdominal Aorta: Abdominal portion non-dilated. Moderate atherosclerosis. Bowel: No obstruction or bowel wall thickening. Appendix is unremarkable. Diverticulosis in the colon , but no evidence of acute diverticulitis. Postsurgical anastomosis is seen in the right colon. Peritoneal Cavity: No ascites, collection or mesenteric inflammatory response. No free air. Lymph Nodes: Within normal limits. Bones: Within normal limits for the patient's age. Old compression fracture deformities are seen at L1 and L2. Multilevel central spinal canal stenosis is seen from L3-4 through L5-S1. Soft Tissues: Postsurgical changes in the anterior abdominal wall. PELVIS: Bladder: Symmetric distention, no gross wall thickening. Reproductive Organs: Unremarkable as visualized. Lymph Nodes: Within normal limits. Bones: Please see above. IMPRESSION: 1. No acute abdominal or pelvic process. No significant change in appearance of the abdomen and pelv is compared to the prior examination. 2. 6 mm nodule in the superior segment of the left lower lobe. In patients with low risk, a 12 month follow-up CT scan is recommended for re-evaluation. In patients with high risk (history of smoking or other risk factors), a follow-up examination in 6-12 months is recommended and again in 18-24 michael hs. (Es et al, 2017). 3. Ground-glass opacities in the right upper lobe. An acute infectious or inflammatory process or ed noemí should be considered. Please correlate clinically. 4. Interval development of lucent lesions in the T3 and T5 vertebral bodies. Metastatic disease harmony ot be excluded. RADIATION DOSE DELIVERED: 1,427.93mGy.cm Total DLP DATA REPOSITORY: All CT scans at this facility are submitted to the National Radiology Data Registry (NRDR) Dose Index Registry (DIR) with the [employer] (ACR). RADIATION OPTIMIZATION: All CT scans at this facility use at least one of these dose optimization te chniques: automated exposure control; mA and/or kV adjustment per patient size (includes targeted exa ms where dose is matched to clinical indication); or iterative reconstruction.
--- NOTE | 2021-07-19 19:04 | DI.VRAD_ITS ---
PROCEDURE INFORMATION: Exam: CT Chest With Contrast; Diagnostic Exam date and time: 07/19/2021 3:35 PM Age: 76 years old Clinical indication: Dyspnea; Patient HX: Diarrhea , weight loss. Night sweats TECHNIQUE: Imaging protocol: Diagnostic computed tomography of the chest with contrast. 3D rendering (Not supervised by radiologist): MIP and/or 3D reconstructed images were created by the technologist. Radiation optimization: All CT scans at this facility use at least one of these dose optimization techniques: automated exposure control; mA and/or kV adjustment per patient size (includes targeted exams where dose is matched to clinical indication); or iterative reconstruction. Contrast material: OMNI-PAQUE 350; Contrast volume: 100 ml; Contrast route: INTRAVENOUS (IV); COMPARISON: CT CHEST/ABD/PEL W 10/07/2020 5:13 PM FINDINGS: Lungs: There is a 7 mm pulmonary nodule in the posterior left upper lobe. There is an 8 mm pulmonary nodule in the right upper lobe. There are ground-glass and reticular opacities with bronchiectasis in the right upper lobe. Pleural spaces: Unremarkable. No pneumothorax. No pleural effusion. Heart: There is a prosthetic aortic valve. Aorta: Unremarkable. No aortic aneurysm or dissection. Pulmonary arteries: No evidence for pulmonary embolism. Lymph nodes: Unremarkable. No enlarged lymph nodes. Bones/joints: Unremarkable. No acute fracture. Soft tissues: Unremarkable. IMPRESSION: 1. 7 mm pulmonary nodule in the left upper lobe. 8 mm pulmonary nodule in the right upper lobe. 2. Ground-glass and reticular opacities with bronchiectasis in the right upper lobe. PROCEDURE INFORMATION: Exam: CT Abdomen And Pelvis With Contrast Exam date and time: 07/19/2021 3:35 PM Age: 76 years old Clinical indication: Dyspnea; Patient HX: Diarrhea , weight loss. Night sweats TECHNIQUE: Imaging protocol: Computed tomography of the abdomen and pelvis with contrast. 3D rendering (Not supervised by radiologist): MIP and/or 3D reconstructed images were created by the technologist. Radiation optimization: All CT scans at this facility use at least one of these dose optimization techniques: automated exposure control; mA and/or kV adjustment per patient size (includes targeted exams where dose is matched to clinical indication); or iterative reconstruction. Contrast material: OMNI-PAQUE 350; Contrast volume: 100 ml; Contrast route: INTRAVENOUS (IV); COMPARISON: CT CHEST/ABD/PEL W 10/07/2020 5:13 PM FINDINGS: Liver: Unremarkable. No evidence for a mass. Gallbladder and bile ducts: There has been a cholecystectomy. Pancreas: Unremarkable. No ductal dilation. Spleen: There is an irregular low-density lesion in the superior spleen measuring 12 mm. No splenomegaly. Adrenal glands: Unremarkable. No mass. Kidneys and ureters: There is a cyst in the right kidney. There is no hydronephrosis. Stomach and bowel: Unremarkable. No obstruction. No mucosal thickening. Appendix: No evidence of appendicitis. Intraperitoneal space: Unremarkable. No free air. No significant fluid collection. Vasculature: Unremarkable. No abdominal aortic aneurysm. Lymph nodes: Unremarkable. No enlarged lymph nodes. Urinary bladder: Unremarkable as visualized. Reproductive: Unremarkable as visualized. Bones/joints: There are degenerative changes of the lumbosacral spine. There are compression fractures of the L1, L2 and L5 vertebrae which are age indeterminate. Soft tissues: There are postsurgical changes of the anterior pelvic wall. IMPRESSION: 1. Irregular 12 mm low-dense lesion in the spleen. Question hemangioma. 2. Multiple age-indeterminate compression deformities of the lumbar spine. Dictated and Authenticated by: Joel Rivero MD. Ordering:.[facility] Logan Gaffney MD
[2021-07-19] MEDS: Omnipaque 350 MG/ML 100 ML BTL IJ (19:28)
[2021-07-19] MEDS: Normal Saline - Diluent 50 ML VIAL IV (19:32)
[2021-07-20] VITALS (12 sets, daily range): BP systolic 84–127; BP diastolic 42–72; PULSE 64–82; RESP 14–20; TEMP 35.2–36.6; O2SAT 94–99
[2021-07-20] MEDS: Normal Saline Flush 10 ML SYR IVP (05:17)
[2021-07-20 07:34] LABS: Absolute Eosinophil Count 0.02 10^3/uL (0.0-0.7); HCT 25.9 % (36.0-46.0); HGB 8.5 g/dL (11.2-15.7); MCH 31.3 pg (27.0-33.0); MCHC 32.8 % (32.0-36.0); MCV 95.2 fL (80-95); Nucleated RBC 0 %; RBC 2.72 10^6/uL (3.93-5.22); RDW 17.3 % (11.7-14.6); RDW-SD 59.5 fL
[2021-07-20 07:37] LABS: Reticulocyte 1.8 % (0.5-2.4)
[2021-07-20] MEDS: Cyanocobalamin 500 MCG TAB 1000 MCG PO (07:43)
[2021-07-20] MEDS: Omeprazole 20 MG CAPCR 40 MG PO (07:43)
[2021-07-20] MEDS: Metoprolol CR 25 MG TABCR 12.5 MG PO (07:43)
[2021-07-20 08:19] LABS: Absolute Neutrophil Count 0.76 10^3/uL (1.2-6.7); Bands % 1; WBC 1.18 10^3/uL (4.4-10.8)
[2021-07-20 08:20] LABS: Absolute Basophil Count 0.01 10^3/uL (0.0-0.2); Absolute Lymphocyte Count 0.22 10^3/uL (1.2-3.4); Absolute Monocyte Count 0.14 10^3/uL (0.1-0.8); Atypical Lymphocytes % 2
[2021-07-20 08:21] LABS: Diff Comment Manual Differential; Myelocytes % 1; Platelet Count 5 10^3/uL (130-400); Promyelocytes % 1; RBC Morphology Normal
[2021-07-20 08:44] LABS: Anion Gap 6.9 mmol/L (3-11); BUN 24 mg/dL (7-18); CO2 27.1 mmol/L (21.0-32.0); CREATININE 1.3 mg/dL (0.55-1.02); Calcium 8.8 mg/dL (8.5-10.1); Chloride 104 mmol/L (98-107); Estimated GFR 39.93 (mL/min/1.73m2); Glucose 90 mg/dL (74-106); Potassium 4.6 mmol/L (3.5-5.1); Sodium 138 mmol/L (136-145)
[2021-07-20 09:40] LABS: Haptoglobin 111 mg/dL (32-197)
[2021-07-20] MEDS: Lactated Ringers 1,000 ML 85 ML IV (11:41)
[2021-07-20] MEDS: Acetaminophen 325 MG TAB 650 MG PO (12:25)
[2021-07-20 16:45] LABS: CEA <2.0 ng/mL (See Note)
--- NOTE | 2021-07-20 17:12 | CMPROGNOTE_ITS ---
- If Service Date Differs Date of service: 07/20/21 Time of Service: 17:12 Care Management Progress Note S/O: Polina was sitting up in her bed preparing to eat lunch when CM met with her. Polina reports that she is feeling better, her strength is improving and appetite is better. She is hoping to go home later today or tomorrow. A: 76 year old female admitted to [facility] on 07/19/21 for Pancytopenia, dyspnea on exertion P: Polina will likely be discharged home with no new services when medically clear. She will be transported by her sister in law Neisha Ríoser. She will need to follow up with her community providers and discharge plan of care. CM continues to support.
--- NOTE | 2021-07-20 18:13 | W.PM.PROGNOT ---
Date of Service Date of service: 07/20/21 Time of Service: 18:13 Assessment and Plan Assessment and plan (1) Pancytopenia: Status: Acute Assessment and plan: ddx: MDS, metastastic CA w/ bone marrow involvement; doubt DIC (no fever, no elevation of her protime); she has borderline low B12 levels. Dr. Hayes started her on B12 supplements. I have ordered homocysteine and methylmalonic acid levels to be drawn. In light of her recent bleeding, epistaxis and rectal bleeding, I am going to transfuse her 1 unit of platelets to get her platelet count over 10,000. If she stabilizes on her blood counts then she can be discharged in the a.m. follow up w/ Dr. Hawthorne at [facility] as outpatient for bone marrow biopsy and monitoring of her blood counts. (2) Dyspnea on exertion: Status: Acute Assessment and plan: multifactorial including anemia and underlying COPD (she has ground glass changes on her chest CT). dyspnea has improved after her PRBC transfusions yesterday. (3) Diarrhea: Status: Acute Assessment and plan: diarrhea was probably d/t her having gi bleeding Qualifiers: Diarrhea type: unspecified type Qualified Code(s): R19.7 - Diarrhea, unspecified (4) Abnormal CT of the chest: Status: Acute Assessment and plan: patient has ground glass opacifications and a nonspecific 6 mm nodule in left lower lobe. follow up PET/CT recommended for evaluation in 3 months. However one should be done sooner due to the T3 and T5 lesions. also patient needs surveillance breast mammography and c-scope (5) GI bleeding: Status: Acute Assessment and plan: transfuse platelets tonight and repeat her CBC in the morning. recommend outpatient follow up w/ GI or surgery for c-scope Qualifiers: GI bleed type/associated pathology: unspecified gastrointestinal hemorrhage type Qualified Code(s): K92.2 - Gastrointestinal hemorrhage, unspecified Subjective Subjective Interval history since last seen: Patient reports some blood w/ her stools today. No nausea or vomiting. Blood was not seen within the stool but found when she wiped her bottom. She says that the toilet paper had a lot of blood. she says that all day long her bottom felt wet and sore and she discovered the blood when she wiped after her BM. I went over her labs w/ her and reviewed her CT findings. She remains anemic w/ hemoglobin of 8.5 gm, WBC 1180, platelets only 5000. ANC 760. Her CT abdomen and pelvis demonstrated the following: IMPRESSION: 1. No acute abdominal or pelvic process. No significant change in appearance of the abdomen and pelvis compared to the prior examination. 2. 6 mm nodule in the superior segment of the left lower lobe. In patients with low risk, a 12 month follow-up CT scan is recommended for re-evaluation. In patients with high risk (history of smoking or other risk factors), a follow-up examination in 6-12 months is recommended and again in 18-24 months. (Es et al, 2017). 3. Ground-glass opacities in the right upper lobe. An acute infectious or inflammatory process or edema should be considered. Please correlate clinically. 4. Interval development of lucent lesions in the T3 and T5 vertebral bodies. Metastatic disease cannot be excluded. I explained to her that the lung nodule is too small to characterize and too small to biopsy. However her lucent lesions in T3 and T5 are concerning for potential malignancy. I told her that she needs follow up w/ her dining room attendant/oncologist to discuss further workup as outpatient. I recommend PET/CT to see if these thoracic lucent areas are active. She also needs routine colon and breast cancer surveillance exams i.e. mammogram and c-scope. Given she had epistaxis the other day, and she had hematochezia this morning (and I did a rectal exam which did not reveal any rectal polyps and her stool was light brown but she was grossyl heme positive (occult card immediately turned dark blue), I think that she ought to have transfusion of platelets in order to prevent further blood loss resulting in worsening anemia. She is in agreement. Exam Narrative Exam Narrative: Elderly female sitting up in bed. alert and oriented x 3 Lungs w/ dry rales; no rhonchi or wheezes Heart: RRR Abdomen: soft, nontender, no palpable masses, no organomegaly Rectal exam was performed w/ her ASSISTANT PROFESSOR OF PHILOSOPHY (female) present. No rectal polyps. She had some dried blood on her depends. rectal tone was intact and small amount of stool taken from rectal vault was light brown but grossly heme positive. Objective Last Vital Signs Temp 36.4 C L 07/20/21 16:04 Pulse 75 07/20/21 16:04 Resp 16 07/20/21 16:04 BP 100/66 07/20/21 16:04 Pulse Ox 99 07/20/21 16:04 Laboratory Results - last 24 hr 07/18/21 07/20/21 07/20/21 15:17 07:06 07:06 WBC RBC Hgb Hct MCV MCH MCHC RDW Plt Count MPV Reticulocyte % (Auto) 1.8 Immature Gran % Neutrophils % Band Neutrophils % Lymphocytes % Atypical Lymphs % Monocytes % Eosinophils % Basophils % Myelocytes % Promyelocytes % Nucleated RBC % Absolute Neutrophils Absolute Lymphocytes Absolute Monocytes Absolute Eosinophils Absolute Basophils RBC Morphology Haptoglobin 111 Sodium 138 Potassium 4.6 Chloride 104 Carbon Dioxide 27.1 Anion Gap 6.9 BUN 24 H Creatinine 1.3 H Estimated GFR/1.73 m2 39.93 Glucose 90 Calcium 8.8 Stl C.difficile Tox PCR 07/20/21 07/20/21 07:06 09:34 WBC 1.18 L* RBC 2.72 L Hgb 8.5 L Hct 25.9 L MCV 95.2 H MCH 31.3 MCHC 32.8 RDW 17.3 H Plt Count 5 L* MPV Reticulocyte % (Auto) Immature Gran % See Differential Neutrophils % 63.0 Band Neutrophils % 1 Lymphocytes % 17.0 Atypical Lymphs % 2 Monocytes % 12.0 Eosinophils % 2.0 Basophils % 1.0 Myelocytes % 1 Promyelocytes % 1 Nucleated RBC % 0 Absolute Neutrophils 0.76 L Absolute Lymphocytes 0.22 L Absolute Monocytes 0.14 Absolute Eosinophils 0.02 Absolute Basophils 0.01 RBC Morphology Normal Haptoglobin Sodium Potassium Chloride Carbon Dioxide Anion Gap BUN Creatinine Estimated GFR/1.73 m2 Glucose Calcium Stl C.difficile Tox PCR Cancelled
[2021-07-20 19:19] LABS: D-Dimer 1565 ng/mlFEU (<500)
[2021-07-21] VITALS (11 sets, daily range): BP systolic 99–125; BP diastolic 45–60; PULSE 76–85; RESP 16–18; TEMP 35.7–36.9; O2SAT 94–96
[2021-07-21] MEDS: Normal Saline Flush 10 ML SYR IVP (02:14)
[2021-07-21] MEDS: Lactated Ringers 1,000 ML 85 ML IV (02:14)
[2021-07-21 07:43] LABS: Abs Immature Grans 0.02 10^3/uL (0.0-0.06); Absolute Eosinophil Count 0.04 10^3/uL (0.0-0.7); Absolute Monocyte Count 0.17 10^3/uL (0.1-0.8); Absolute Neutrophil Count 0.87 10^3/uL (1.2-6.7); Eosinophils % 3.1; HCT 24.3 % (36.0-46.0); Immature Grans % 1.5; Lymphocytes % 15.4; MCH 31.5 pg (27.0-33.0); MCHC 32.9 % (32.0-36.0); MCV 95.7 fL (80-95); MPV 11.3 fL (8.0-11.0); Monocytes % 13.1; Neutrophils % 66.9; Nucleated RBC 0 %; RBC 2.54 10^6/uL (3.93-5.22); RDW 16.7 % (11.7-14.6)
[2021-07-21] MEDS: Cyanocobalamin 500 MCG TAB 1000 MCG PO (07:51)
[2021-07-21] MEDS: Omeprazole 20 MG CAPCR 40 MG PO (07:51)
[2021-07-21] MEDS: Metoprolol CR 25 MG TABCR 12.5 MG PO (07:51)
[2021-07-21 08:10] LABS: Anion Gap 6.3 mmol/L (3-11); BUN 27 mg/dL (7-18); CO2 26.7 mmol/L (21.0-32.0); CREATININE 1.1 mg/dL (0.55-1.02); Calcium 8.5 mg/dL (8.5-10.1); Chloride 105 mmol/L (98-107); Estimated GFR 48.42 (mL/min/1.73m2); Glucose 95 mg/dL (74-106); Potassium 4.6 mmol/L (3.5-5.1); Sodium 138 mmol/L (136-145)
[2021-07-21 08:14] LABS: Diff Comment Diff Reviewed; Platelet Count 30 10^3/uL (130-400); RBC Morphology Normal
[2021-07-21] MEDS: Mylanta Suspension 30 ML CUP PO (11:02)
[2021-07-21] MEDS: Ondansetron O.D.T. 4 MG TABEF PO (11:02)
[2021-07-21 11:25] LABS: Campylobacter PCR Negative (Negative); Salmonella PCR Negative (Negative); Shiga Toxin PCR Negative (Negative); Shigella/Enteroinvasive Ecoli Negative (Negative)
--- NOTE | 2021-07-21 12:26 | DSE_ITS ---
Date of service: 07/21/21 Time of Service: 12:26 DS: Diagnosis Discharge Diagnosis (1) Pancytopenia: Status: Acute (2) Dyspnea on exertion: Status: Acute (3) Diarrhea: Status: Acute (4) Abnormal CT of the chest: Status: Acute (5) GI bleeding: Status: Acute Discharge Plan Disposition Patient Disposition: HOME Condition: Stable Discharge Details Reason For Visit: Pancytopenia,Dyspnea on Excertion Admit Date/Time: 07/19/21 16:19 Admit Provider: Jose Hayes Attending Provider: Jose Hayes [facility]: This is a 76 yo female with a PMH of metastatic colon cancer, breast cancer, HTN, severe aortic stenosis s/p TAVR, CHF, GERD. She presented to the ED with c/o 3 weeks of worsening shortness of air and dyspnea on exertion. She has also noted feeling lightheaded with ambulation. No vertigo. She has noted intermittent short episodes of chest pain. No palpitations. No cough/fever/chills. No pedal edema. She denied melena or hematochezia. Her ED w/u was remarkable for a WBC count of 1.36, Hgb 5.8, Platelets 7. Neutrophils low at 0.91. CBC in October of 2020 was normal. Her reticulocyte was high at 2.8. LDH elevated at 789. Total and conjugated bilirubin normal. CRP >25. Haptoglobin pending. Iron 79. B12 low at 191. Folate normal 16.6. Hemeoccult was negative. VS were normal. RA O2 saturation of 100%. CXR w/o any acute processes. ED physician discussed this case with [facility]. They recommended DIC screen and a peripheral smear. Transfuse platelets if less than 5 or if a fever develops and platelets are less than 10, or if less than 50 and bleeding occurs. She was transfused 2 units of RBCs. Her Hgb was 9.11 the morning after the transfusions. Hgb then decreased to 8.5 then 8.0. She was no longer experiencing dyspnea on exertion. Another unit of RBCs was transfused prior to discharge in light of the ongoing decrease. She will have a CBC drawn on the Friday following discharge. CT chest/abd/pelvis showed a 6mm nodule in the left lower lobe of her lung. A 12 month f/u CT scan recommended. Lesions in the T3 and T5 vertebral bodies noted; metastatic disease not excluded. Ground-glass opacities in the right upper lobe noted. She had no fevers or respiratory complaints. Most likely pulmonary edema. She showed no respiratory compromise; RA O2 saturations in the high 90's. Echocardiogram showed mildly decreased left ventricular systolic function. Regional wall motion abnormalities noted. LVEF of 46%. Bioprosthetic aortic valve appeared well-seated. Tr regurgitation. She was noted to have frequent loose stools; C.Diff was negative, lactoferrin positive. Other stool infectious studies pending at time of d/c. She had a formed stool on day of discharge. Pt to arrange follow up with her oncologist. PCP f/u next week. Home Meds and New Rx's Prescriptions: New cyanocobalamin (vitamin B-12) [Vitamin B-12] 500 mcg Tablet 1,000 mcg PO DAILY Qty: 0 RF: 0 Continued acetaminophen [Tylenol Extra Strength] 500 mg tablet 1,000 mg PO ONCE PRNRF: 0 loperamide [Imodium A-D] 2 mg tablet 2 mg PO QID PRN (Reason: loose stool) Qty: 60 RF: 12 omeprazole 40 mg capsule,delayed release(DR/EC) 40 mg PO DAILY Qty: 30 RF: 12 metoprolol succinate 25 mg Tablet Extended Release 24 Hr 12.5 mg PO BID Qty: 30 RF: 0 Discontinued aspirin [Aspir-Low] 81 mg Tablet,Delayed Release (Dr/Ec) RF: 0 Discharge Instructions Activity:: Activity as Tolerated Equipment/Supplies:: No Equipment Needed Diet:: Normal Diet Discharge Orders Discharge Orders: Discharge Order (Routine); Ordered 07/21/21 Ordered By: Jose Hayes Other Ambulatory Orders: Complete Blood Count w/Diff (Routine) Location: None Selected Ordered By: Jose Hayes DS: Summary Time Spent with Patient providing and/or coordinating discharge services: Greater than 30 minutes Status at Discharge Functional status at discharge: independent ambulation Overall status at discharge: patient is progressing back to baseline Mental Status: mental status grossly normal Speech and Movement: speech and movement normal Mood: congruent mood Affect: normal affect Exam Const General: cooperative, no acute distress and frail appearing Nutritional Appearance: overweight Orientation: alert and oriented x3 Eyes Conjunctivae: conjunctival abnormality bilaterally pallor Pupils: PERRL Resp Effort & Inspection: normal respiratory effort Auscultation: clear to auscultation bilaterally Cardio Rate: regular rate Rhythm: regular rhythm Heart Sounds: S1 normal and S2 normal GI Palpation: soft and nontender Percussion: normal to percussion Skin General skin exam: no rashes or lesions noted Extrem General: no pedal edema and no calf tenderness Psych Mental Status: mental status grossly normal Speech and Movement: speech and movement normal Mood: congruent mood Affect: normal affect DS: Data Vitals/I&O Vitals and I&O: Vital Signs Temperature 36 C L 07/21/21 11:08 Temperature Source Skin 07/21/21 11:08 Pulse 80 07/21/21 11:08 Pulse Rhythm Regular 07/21/21 08:03 Pulse 85 07/18/21 19:10 Respiratory Rate 16 07/21/21 11:08 Respiratory Effort 07/21/21 08:03 Respiratory Depth Normal 07/21/21 08:03 Respiratory Pattern Normal 07/21/21 08:03 Blood Pressure 118/47 L 07/21/21 11:08 Blood Pressure Mean 45 07/18/21 19:02 Blood Pressure Position Supine 07/18/21 15:06 Pulse Oximetry 96 07/21/21 11:08 Oxygen Delivery Method Room Air 07/21/21 11:08 Oxygen Flow Rate 0 07/21/21 11:08 Pain Level 0 07/21/21 07:07 Comment nurse was notifed 07/20/21 19:49 Intake & Output 07/20/21 07/21/21 07/21/21 23:59 11:59 23:59 Intake Total 1000 / 1105 500 / 500 Output Total 1850 / 2700 1650 / 1850 200 / 1850 Balance -850 / -1595 -1150 / -1350 -200 / -1350 Weight 69.264 kg Intake: IV 1000 / 1005 Oral 100 / 100 Blood Product 300 / 300 Apheresis Platelets Unit 300 / 300 [id number] Other 100 / 100 Apheresis Platelets Unit 100 / 100 [id number] Output: Urine 1850 / 2700 1650 / 1850 200 / 1850 Other: Urine Color Yellow Yellow Yellow Urine Appearance Clear Clear Clear Urine Odor Normal None None Comment pt reports urgency and urge incontinence. Pt denied having incontinence at this time. Stool Size Smear Moderate Stool Characteristics Soft Soft Formed Voiding Methods Toilet Toilet Toilet Data Completed and Pending Labs on day of discharge: Labs from last 24 hours 07/21/21 07/21/21 07/21/21 07:10 07:10 07:10 WBC 1.30 L* RBC 2.54 L Hgb 8.0 L Hct 24.3 L MCV 95.7 H MCH 31.5 MCHC 32.9 RDW 16.7 H Plt Count 30 L D MPV 11.3 H Immature Gran % 1.5 Neutrophils % 66.9 Lymphocytes % 15.4 Monocytes % 13.1 Eosinophils % 3.1 Basophils % 0.0 Nucleated RBC % 0 Absolute Neutrophils 0.87 L Absolute Lymphocytes 0.20 L Absolute Monocytes 0.17 Absolute Eosinophils 0.04 Absolute Basophils 0.00 RBC Morphology Normal D-Dimer Sodium Potassium Chloride Carbon Dioxide Anion Gap BUN Creatinine Estimated GFR/1.73 m2 Glucose Calcium Methylmalonic Acid Pending Homocysteine Pending Patient ABO/Rh Antibody Screen Crossmatch 07/21/21 07/20/21 07/18/21 07:10 18:35 16:15 WBC RBC Hgb Hct MCV MCH MCHC RDW Plt Count MPV Immature Gran % Neutrophils % Lymphocytes % Monocytes % Eosinophils % Basophils % Nucleated RBC % Absolute Neutrophils Absolute Lymphocytes Absolute Monocytes Absolute Eosinophils Absolute Basophils RBC Morphology D-Dimer 1565 H Sodium 138 Potassium 4.6 Chloride 105 Carbon Dioxide 26.7 Anion Gap 6.3 BUN 27 H Creatinine 1.1 H Estimated GFR/1.73 m2 48.42 Glucose 95 Calcium 8.5 Methylmalonic Acid Homocysteine Patient ABO/Rh A Positive Antibody Screen NEGATIVE Crossmatch See Detail [facility] Medical History Acute CHF prior to TAVR. none since then Adenocarcinoma of right breast s/p Lumpectomy Advance directive on file Anemia Aortic stenosis, severe s/p TAVR Cancer of ascending colon metastatic to intra-abdominal lymph node S/p Right hemicolectomy Diarrhea Factitious hyperthyroidism GERD (gastroesophageal reflux disease) H/O malignant neoplasm of breast H/O malignant neoplasm of colon Hypertension Hypertension Hypomagnesemia Incarcerated incisional hernia Normocytic anemia Severe aortic stenosis s/p TAVR UTI (urinary tract infection) Yeast dermatitis Surgical History H/O cardiac catheterization H/O colonoscopy H/O heart valve replacement with porcine valve History of esophagogastroduodenoscopy (EGD) History of ventral hernia repair 07/01/19 at [facility] S/P cholecystectomy S/P recurrent ventral herniorrhaphy pt has [id number] polypropalene mesh implanted S/P right hemicolectomy S/p TAVR (transcatheter aortic valve replacement), bioprosthetic Status post closure of ileostomy Status post right breast lumpectomy Family History Mother Stroke Hypertension Son Diabetes type 2 Son Diabetes type 2 Father Cancer lung cancer - smoker Brother Cancer unknown type Social History Smoking/Tobacco Use Status: Former Tobacco Use Pack-years: 141 Tobacco: How many years used: 47 Smoking risk assessment performed?: Yes Alcohol Intake: former Drug use: Never Substance use type: does not use Current gender identity: female Do you feel safe at home: Yes Do you feel safe in your relationship?: Yes
[2021-07-23 08:55] LABS: Homocysteine 19.9 umol/L (5.0-13.9)
[2021-07-25 17:10] LABS: Methylmalonic Acid 0.99 nmol/mL (<=0.40)
== END 2021-07-21 16:03 | disposition home or self-care (01) | DRG 809 ==
LOC: ER 18:46 → MS 20:54
PROVIDERS: Internal Medicine; Admitting Provider Family Medicine; Emergency Provider Physician Assistant; PCP Nurse Practitioner Family; Visit Provider Family Medicine
DX: D61.818 Other pancytopenia (principal); C77.2 Secondary and unspecified malignant neoplasm of intra-abdominal lymph nodes; K92.2 Gastrointestinal hemorrhage, unspecified; I50.1 Left ventricular failure, unspecified; K21.9 Gastro-esophageal reflux disease without esophagitis; Z85.3 Personal history of malignant neoplasm of breast; Z95.4 Presence of other heart-valve replacement; I11.0 Hypertensive heart disease with heart failure; D64.9 Anemia, unspecified; R19.7 Diarrhea, unspecified; E05.40 Thyrotoxicosis factitia without thyrotoxic crisis or storm; E83.42 Hypomagnesemia; Z98.0 Intestinal bypass and anastomosis status; Z85.038 Personal history of other malignant neoplasm of large intestine; Z87.891 Personal history of nicotine dependence; Z20.822 Contact with and (suspected) exposure to COVID-19; R91.1 Solitary pulmonary nodule
CPT/HCPCS: 36415; 74177; 80048; 80053; 80186; 83090; 86850; 86900; 86901; 86920; 87493; 87505; 87635; 93005; 93306; 99285; 71046; 71260; 82378; 82607; 82728; 82746; 83010; 83540; 83605; 83615; 83630; 83735; 83880; 84484; 85025; 85045; 85379; 85610; 93010; 99220; 99232; 99239; J3490; P9016; P9035

== ENCOUNTER 2021-07-24 05:11 | Outpatient (CLI) | payer MEDICARE, SELFPAY ==
[2021-07-24 13:53] LABS: Abs Immature Grans 0.02 10^3/uL (0.0-0.06); Absolute Eosinophil Count 0.01 10^3/uL (0.0-0.7); Absolute Lymphocyte Count 0.33 10^3/uL (1.2-3.4); Absolute Neutrophil Count 1.39 10^3/uL (1.2-6.7); Eosinophils % 0.5; HCT 29.9 % (36.0-46.0); HGB 9.8 g/dL (11.2-15.7); Lymphocytes % 16.9; MCH 31.2 pg (27.0-33.0); MCHC 32.8 % (32.0-36.0); MCV 95.2 fL (80-95); MPV 9.8 fL (8.0-11.0); Monocytes % 10.3; Neutrophils % 71.3; Nucleated RBC 0 %; RBC 3.14 10^6/uL (3.93-5.22); RDW 16.2 % (11.7-14.6); RDW-SD 56.1 fL
[2021-07-24 15:06] LABS: WBC 1.95 10^3/uL (4.4-10.8)
[2021-07-24 15:07] LABS: Platelet Count 10 10^3/uL (130-400)
[2021-07-24 15:08] LABS: Diff Comment Agrees w/ Instrument; RBC Morphology Normal
== END 2021-07-24 05:12 | disposition home or self-care (01) ==
LOC: LBO 05:11
PROVIDERS: PCP Nurse Practitioner Family; Visit Provider Family Medicine
DX: D61.818 Other pancytopenia (principal)
CPT/HCPCS: 36415; 85025

== ENCOUNTER 2021-07-24 16:09 | Emergency (ER) | payer MEDICARE, SELFPAY ==
[2021-07-24] VITALS (25 sets, daily range): BP systolic 110–146; BP diastolic 46–103; PULSE 81–94; RESP 12–34; TEMP 36.7; O2SAT 97–100
--- NOTE | 2021-07-24 16:15 | DI.CT_ITS ---
Exam(s) CT CHEST PE CTA EXAM: CT CHEST PE CTA CLINICAL HISTORY: sob. TECHNIQUE: Imaging Protocol: CT angiography of the chest was performed using pulmonary embolus darwin col. Multi planar reconstructions were performed. CONTRAST MATERIAL: Intravenous: Omnipaque 350 Contrast volume: 100 cc COMPARISON: CT CT ABDOMEN PELVIS WO from 08/18/[address] CHEST/ABD/PEL W from 07/19/2021 FINDINGS: CHEST: PULMONARY ARTERIES: There are no intraluminal filling defects to suggest acute pulmonary emboli. LUNGS: There is patchy infiltrate again noted in the sub apical aspect of the right upper lobe, uncha nged. Also subpleural infiltrate laterally over the right upper lobe is again noted, without improve ment. Similar findings also seen in the lateral segment of the right middle lobe, without improvemen t. There are no significant focal findings in the right lower lobe. No pleural effusion. In the opposite-left lung there are no findings in the upper lobe. In the superior segment of the le ft lower lobe there is a 10 x 7 millimeter noncalcified nodule again noted appears unchanged. No oth er left lower lobe findings.. No pleural effusions on either side. No pneumothorax. MEDIASTINUM: There is no hilar nor mediastinal adenopathy. Visualized thyroid unremarkable. CARDIAC: Heart size is upper normal. There is no pericardial effusion.Aortic valve TAVR. No signifi cant enlargement of the ascending thoracic aorta. No dissection there is no significant shift of the interventricular septum. PARTIALLY VISUALIZED UPPERMOST ABDOMEN: There are nodular densities at the genu of both adrenal gland s. On the right side this measures 1.3 by 1.2 cm. On the left side this measures 1.1 x 1.0 cm. The se are probably small adenomas and appear unchanged.. Also appear unchanged from prior CT scan of Se pt2019. OSSEOUS: No significant osseous lesions.. IMPRESSION: 1. No evidence of acute pulmonary emboli. No evidence of pulmonary infarction.No pleural effusions. 2. There is persistent patchy infiltrate in the right upper lobe as well as pleural based infiltrate and scarring in the right lung which is also unchanged from the prior study listed above. 3. There is also a 10 x 7 millimeter noncalcified nodule in the superior segment of the left lower lo be which is unchanged from the prior CT study listed above. This require close follow-up to rule out neoplasm. 4. There is no evidence of intrathoracic adenopathy. 5. Small stable adenomas noted in both adrenal glands. RADIATION DOSE DELIVERED: 291.32mGy.cm Total DLP DATA REPOSITORY: All CT scans at this facility are submitted to the National Radiology Data Registry (NRDR) Dose Index Registry (DIR) with the [employer] ([employer]). RADIATION OPTIMIZATION: All CT scans at this facility use at least one of these dose optimization te chniques: automated exposure control; mA and/or kV adjustment per patient size (includes targeted exa ms where dose is matched to clinical indication); or iterative reconstruction.
[2021-07-24] MEDS: Normal Saline 500 ML IV (17:05)
[2021-07-24 17:21] LABS: ALT 16 U/L (14-59); AST 13 U/L (15-37); Albumin 3.5 g/dL (3.4-5.0); Alkaline Phosphatase 73 U/L (46-116); Anion Gap 8.5 mmol/L (3-11); BUN 23 mg/dL (7-18); Bilirubin, Total 0.8 mg/dL (0.2-1.0); CO2 26.5 mmol/L (21.0-32.0); CREATININE 1.2 mg/dL (0.55-1.02); Calcium 9.2 mg/dL (8.5-10.1); Chloride 104 mmol/L (98-107); Glucose 104 mg/dL (74-106); Potassium 4.1 mmol/L (3.5-5.1); Sodium 139 mmol/L (136-145); Total Protein 7.6 g/dL (6.4-8.2)
--- NOTE | 2021-07-24 17:49 | NUR.NOTE ---
Patient returns from DI per cart.Nursing Note:
[2021-07-24 18:09] LABS: Source Nasal/Nares
--- NOTE | 2021-07-24 18:38 | DI.VRAD_ITS ---
PROCEDURE INFORMATION: Exam: CTA Chest With Contrast Exam date and time: 07/24/2021 4:23 PM Age: 76 years old Clinical indication: SOB. HX right breast cancer TECHNIQUE: Imaging protocol: Computed tomographic angiography of the chest with contrast. 3D rendering (Not supervised by radiologist): MIP and/or 3D reconstructed images were created by the technologist. Radiation optimization: All CT scans at this facility use at least one of these dose optimization techniques: automated exposure control; mA and/or kV adjustment per patient size (includes targeted exams where dose is matched to clinical indication); or iterative reconstruction. Contrast material: OMNIPAQUE 350; Contrast volume: 100 ml; Contrast route: INTRAVENOUS (IV); COMPARISON: CT CHEST PE CTA 05/23/[address] chest 07/19/2021 FINDINGS: Pulmonary arteries: No evidence of pulmonary embolism. Aorta: Normal caliber thoracic aorta without dissection or aneurysm. Lungs: Mild patches of infiltrate within the superolateral right upper lobe. Posterolateral right upper lobe calcified granuloma. Likely small calcified granuloma superior segment of the right lower lobe. Pleuroparenchymal scarring within the lateral right upper lobe / lateral right middle lobe. Pleural spaces: No pleural fluid collection. No pneumothorax. Heart: Heart is not enlarged. Prior TAVR. No right ventricular strain. No pericardial effusion. Lymph nodes: No enlarged lymph nodes. Gallbladder and bile ducts: Prior cholecystectomy. Adrenal glands: Bilateral adrenal gland thickening. Bones/joints: Spinal degenerative changes. Old compression fractures of L1 and L2. Soft tissues: 14 x 10 x 12 mm irregularly contoured scar in the right breast, mildly decreased compared to 05/23/2019 IMPRESSION: 1. No evidence of pulmonary embolism. 2. Mild patches of infiltrate within the superolateral right upper lobe - mildly increased compared to 07/19/2021. 3. No pleural fluid collection. 4. Compared to 07/19/2021, stable 7 mm nodule within the superior segment of the left lower lobe. 5. Pleuroparenchymal scarring within the lateral right upper lobe / lateral right middle lobe. Dictated and Authenticated by: Francis Beasley MD. Ordering:CITLALI Danielson MD
--- NOTE | 2021-07-24 18:39 | NUR.NOTE ---
Ambulates to restroom with steady gait.Nursing Note:
[2021-07-24] MEDS: Omnipaque 350 MG/ML 100 ML BTL IV (18:49)
[2021-07-24] MEDS: Normal Saline Flush 10 ML SYR IVP (18:50)
[2021-07-24 19:01] LABS: COVID-19 PCR Negative (Negative)
--- NOTE | 2021-07-24 19:54 | NUR.NOTE ---
Ambulates to restroom with steady gait. Voids independently. Denies pain or dizziness.Nursing Note:
--- NOTE | 2021-07-24 20:00 | NUR.NOTE ---
Patient daughter in law, Ailin, calls for update.Nursing Note:
--- NOTE | 2021-07-24 20:08 | NUR.NOTE ---
Patient felipe Soliz called for transport home. ETA 2029.Nursing Note:
--- NOTE | 2021-07-24 20:16 | W.ED.GENAD ---
Discharge Plan Disposition Patient Disposition: HOME Condition: Stable Discharge Details Clinical Impression: Thrombocytopenia Primary Care Provider: Tiana Romano ED Provider: Erum Jean Home Meds and New Rx's Prescriptions: Continued acetaminophen [Tylenol Extra Strength] 500 mg tablet 1,000 mg PO TID PRNRF: 0 loperamide [Imodium A-D] 2 mg tablet 2 mg PO QID PRN (Reason: loose stool) Qty: 60 RF: 12 omeprazole 40 mg capsule,delayed release(DR/EC) 40 mg PO DAILY Qty: 30 RF: 12 metoprolol succinate 25 mg Tablet Extended Release 24 Hr 12.5 mg PO BID Qty: 30 RF: 0 cyanocobalamin (vitamin B-12) [Vitamin B-12] 500 mcg Tablet 1,000 mcg PO DAILY Qty: 0 RF: 0 Discharge Instructions Instructions: Thrombocytopenia (ED) Additional Instructions: your platelet count remains low at 10. there is no recommendation for transfusion unless you develop bleeding or signs of bleeding, including extensive bruising, lightheadedness, rectal bleeding etc. you need to follow up with hematology at [facility] [place], call their office tomorrow morning. please have your blood drawn again on , results to hematology and pcp. Referrals: Tiana Romano [Primary Care Provider] - AGATA METCALF [ [facility]] - 1 day (spoke with DR Maradiaga ) Discharge Orders Other Ambulatory Orders: Complete Blood Count w/Diff (Routine) Timeframe: 2 Days Location: None Selected Ordered By: Erum Jean Medical Decision Making patient referred by pcp office. recently evaluated for pancytopenia and was referred to hematology but has not followed up yet. denies new symptoms. last record was reviewed and recommendations not to transfuse platelets unless below 5 or bleeding. she has no evidence of bleeding. patient does have ongoing sob, not worsening, not hypoxic. will check cT scan to r/o PE which was ruled out as well as covid checked and negative. her case is discussed with Dr Maradiaga who give same recommendations for no transfusion at this time as hemodynamically stable with no evidence of bleeding. will f/u outpatient with hematology alfredo. ordered repeat blood work for . Medical Records Medical records reviewed: Yes I reviewed the patient's medical records. Imaging Data Radiologic Study: Imaging: CT Scan (chest for PE) Radiologist's impression: Diagnostics Hx Today 19:15 Today 18:38 Today 17:22 Today 16:22 Today 15:08 07/23/21 09:20 Collected: 07/21/21 07:10 07/21/21 15:12 Collected: 07/20/21 09:34 07/21/21 15:09 Collected: 07/20/21 07:06 07/21/21 08:16 07/21/21 08:14 07/21/21 07:10 07/20/21 19:19 Source Stool Procedure/Result Lactoferrin Latex Agglutination - Final 07/20/21 09:45 Service Date: 07/19/21 18:20 07/20/21 09:42 Collected: 07/18/21 15:17 07/20/21 09:40 07/20/21 09:34 07/20/21 08:48 07/20/21 08:21 07/20/21 07:43 07/19/21 19:04 07/19/21 13:19 Collected: 07/18/21 15:17 07/19/21 13:15 07/19/21 08:01 07/19/21 07:48 07/19/21 07:43 07/18/21 21:04 07/18/21 20:02 07/18/21 18:21 07/18/21 18:06 07/18/21 18:06 07/18/21 18:06 07/18/21 17:42 07/18/21 17:28 07/18/21 17:26 07/18/21 17:09 07/18/21 17:08 07/18/21 16:50 07/18/21 16:37 07/18/21 15:58 07/18/21 15:58 07/18/21 15:58 07/18/21 15:58 07/18/21 15:31 10/08/20 13:21 Service Date: 10/07/20 13:45 10/08/20 13:12 Service Date: 10/07/20 13:45 10/07/20 18:11 10/07/20 17:45 10/07/20 15:35 10/07/20 15:05 10/07/20 15:05 10/07/20 15:05 10/07/20 14:44 10/07/20 14:44 10/07/20 14:27 10/07/20 14:25 09/13/20 14:37 09/04/20 09:04 Service Date: 09/02/20 18:36 09/02/20 18:59 09/02/20 18:59 09/01/20 12:56 09/01/20 12:56 09/01/20 06:00 08/30/20 13:34 08/25/20 11:52 Source Tip/Tube Procedure/Result Catheter Tip Culture - Final Source Foot Left Procedure/Result Wound Culture - Final Gram Stain - Final 08/22/20 09:26 08/22/20 09:21 08/22/20 07:29 08/21/20 07:28 08/21/20 07:28 08/21/20 07:23 08/20/20 08:30 08/20/20 08:30 08/20/20 08:01 08/19/20 14:04 Collected: 08/18/20 19:30 08/19/20 08:41 08/19/20 08:41 08/19/20 08:41 08/19/20 08:15 08/18/20 18:45 08/18/20 17:50 08/18/20 16:02 08/18/20 16:02 08/18/20 15:54 08/18/20 15:41 05/08/20 12:21 05/08/20 10:29 Source Urine Reflex from Ua Procedure/Result Urine Culture - Final 04/17/20 10:33 Service Date: 04/16/20 07:00 04/16/20 10:54 04/16/20 08:50 04/16/20 07:55 04/16/20 07:54 04/16/20 07:51 04/16/20 07:51 04/16/20 07:39 76, F0 1945 [facility], [facility] 1.52m 68.492kg BSA: 1.66m? BMI: 29.5kg/m? GenMedical Search Chart Hives ONSET No Data to Display 1ST CURRENT Today Today 17:58 20:20 *from earlier documentation ONSET Acute CHF Adenocarcinoma of right breast Advance directive on file Anemia Aortic stenosis, severe Cancer of ascending colon metastatic to intra-abdominal lymph node Diarrhea Factitious hyperthyroidism GERD (gastroesophageal reflux disease) H/O malignant neoplasm of breast H/O malignant neoplasm of colon Hypertension Hypertension Hypomagnesemia Incarcerated incisional hernia Normocytic anemia Severe aortic stenosis UTI (urinary tract infection) Yeast dermatitis ONSET H/O cardiac catheterization H/O colonoscopy H/O heart valve replacement with porcine valve History of esophagogastroduodenoscopy (EGD) History of ventral hernia repair S/P cholecystectomy S/P recurrent ventral herniorrhaphy S/P right hemicolectomy S/p TAVR (transcatheter aortic valve replacement), bioprosthetic Status post closure of ileostomy Status post right breast lumpectomy CONDITION (ONSET AGE) Mother Hypertension Stroke Son Diabetes Son Diabetes Father Cancer Brother Cancer Denies family history of: Heart disease RESPONSE Gender Identity female Smoking/Tobacco Use Status Former Tobacco Use Pack-years: 141 Tobacco: How many years used 47 Smoking risk assessment performed? Yes alcohol intake former Drug use Never substance use type does not use do you feel safe at home Yes Safe in relationship? Yes 08/19/20 08/19/20 08/18/20 08/18/20 08/19/20 08/19/20 08/18/20 08/18/20 08/21/20 03/29/17 05/04/20 08/24/20 07/19/21 07/20/21 10/04/20 01/22/18 07/21/21 07/21/21 Today 07/18/21 Today 07/18/21 08/24/20 01/20/18 08/22/20 08/19/20 01/20/18 08/21/20 08/25/20 08/20/20 08/23/20 07/20/21 04/16/20 03/29/17 05/08/20 08/18/20 09/02/20 07/20/19 01/21/18 Today 07/18/21 07/19/21 07/19/21 10/07/20 01/20/18 07/07/20 Today Today 16:50 Today 16:50 Today 16:50 Today 16:50 Today 16:50 Today 16:50 Today 16:50 Today 16:50 Today 16:50 Today 16:50 Today 16:50 Today 16:50 Today 16:50 Today 16:50 Today 16:50 Today 16:50 Today 18:00 Today 18:00 Other Medical History 3 Other Medical History 4 Other Medical History 5 Other Surgical History 2 Other Surgical History 3 Other Pertinent Family History Objective Subjective Stated Complaint Chief Complaint GenMedical Condition Stable Arrival Date/Time 07/24/21 16:09 Arrival Mode Triaged At 07/24/21 16:13 ED Location Main ER Area/Station Today Today Today Today Today Today Today Today Today Today 07/20/21 Today Today 07/20/21 Today 07/20/21 12/15/17 Today Today Today 07/20/21 07/20/21 Today Today 12/22/17 12/22/17 Today 12/11/17 Today Today Today 12/22/17 07/01/19 10/14/17/04/1707/17/19 Today 07/01/19 07/01/19 07/17/19 07/19/21 07/18/21 07/18/21 07/19/21 07/19/21 10/07/20 07/20/2105/23/05/23/05/23/19 05/23/19 05/23/1905/23/05/23/18 Today Today Today Today Today Today Today Today Today 20 Today 07/18/21 08/22/20 07/18/21 08/22/20 07/18/21 Today 20 Today Today Today 03/30/17 07/18/21 07/18/21 07/18/21 Today Today 06/ 07/ 07/06/05/18/20 07/20/21 07/18/21 07/21/21 07/18/21 03/30/17 07/21/2106/05/ 0517/20 05/17/20 05/17/20 05/17/20 05/17/20 05/17/20 0517/20 0520 05/20 05/20 05/17/20 05/17/20 051720 05//20 05//20 05/17/20 05//20 /06/1804/16/20 05/20 05/20 08/20/21 1007/20/21 07/20/21 07/20/21 08/18/20 Today Today 07/20/21 10/07/17 07/18/21 08/18/20 07/17/19 08/21/20 07/20/21 12/10/17 04/16/20 08/21/20 07/18/21 07/18/21 07/18/21 07/18/21 07/18/21 Polina Alvarado 76 F 1945 Patient Name: Polina Alvarado #: [id number]: ER Ordering Provider: : REG ER Primary Care Provider: Karina Romano of Exam: 07/24/21Sex: F : 1945ge: 76 Exam(s) PROCEDURE INFORMATION: Exam: CTA Chest With Contrast Exam date and time: 07/24/2021 4:23 PM Age: 76 years old Clinical indication: SOB. HX right breast cancer TECHNIQUE: Imaging protocol: Computed tomographic angiography of the chest with contrast. 3D rendering (Not supervised by radiologist): MIP and/or 3D reconstructed images were created by the technologist. Radiation optimization: All CT scans at this facility use at least one of these dose optimization techniques: automated exposure control; mA and/or kV adjustment per patient size (includes targeted exams where dose is matched to clinical indication); or iterative reconstruction. Contrast material: OMNIPAQUE 350; Contrast volume: 100 ml; Contrast route: INTRAVENOUS (IV); COMPARISON: CT CHEST PE CTA 05/23/[address] chest 07/19/2021 FINDINGS: Pulmonary arteries: No evidence of pulmonary embolism. Aorta: Normal caliber thoracic aorta without dissection or aneurysm. Lungs: Mild patches of infiltrate within the superolateral right upper lobe. Posterolateral right upper lobe calcified granuloma. Likely small calcified granuloma superior segment of the right lower lobe. Pleuroparenchymal scarring within the lateral right upper lobe / lateral right middle lobe. Pleural spaces: No pleural fluid collection. No pneumothorax. Heart: Heart is not enlarged. Prior TAVR. No right ventricular strain. No pericardial effusion. Lymph nodes: No enlarged lymph nodes. Gallbladder and bile ducts: Prior cholecystectomy. Adrenal glands: Bilateral adrenal gland thickening. Bones/joints: Spinal degenerative changes. Old compression fractures of L1 and L2. Soft tissues: 14 x 10 x 12 mm irregularly contoured scar in the right breast, mildly decreased compared to 05/23/2019 IMPRESSION: 1. No evidence of pulmonary embolism. 2. Mild patches of infiltrate within the superolateral right upper lobe - mildly increased compared to 07/19/2021. 3. No pleural fluid collection. 4. Compared to 07/19/2021, stable 7 mm nodule within the superior segment of the left lower lobe. 5. Pleuroparenchymal scarring within the lateral right upper lobe / lateral right middle lobe. Dictated and Authenticated by: Francis Beasley MD. Ordering:CITLALI Danielson MD Lab Data Lab results reviewed: Yes I reviewed the patient's lab results. Lab results narrative: cbc: WBC 1.95 HGB 9.8 HCT 29.9 PLT 10 Labs: Laboratory Tests Range/Units 07/24/21 07/24/21 16:50 18:00 Sodium (136-145) mmol/L 139 Potassium (3.5-5.1) mmol/L 4.1 Chloride (98-107) mmol/L 104 Carbon Dioxide (21.0-32.0) mmol/L 26.5 Anion Gap (3-11) mmol/L 8.5 BUN (7-18) mg/dL 23 H Creatinine (0.55-1.02) mg/dL 1.2 H Estimated GFR/1.73 m2 (mL/min/1.73m2) 43.80 Glucose (74-106) mg/dL 104 Calcium (8.5-10.1) mg/dL 9.2 Total Bilirubin (0.2-1.0) mg/dL 0.8 AST (15-37) U/L 13 L ALT (14-59) U/L 16 Alkaline Phosphatase (46-116) U/L 73 Total Protein (6.4-8.2) g/dL 7.6 Albumin (3.4-5.0) g/dL 3.5 COVID-19 Source Nasal/Nares SARS-CoV-2 (PCR) (Negative) Negative Laboratory Results - last 24 hr 07/24/21 07/24/21 16:50 18:00 Sodium 139 Potassium 4.1 Chloride 104 Carbon Dioxide 26.5 Anion Gap 8.5 BUN 23 H Creatinine 1.2 H Estimated GFR/1.73 m2 43.80 Glucose 104 Calcium 9.2 Total Bilirubin 0.8 AST 13 L ALT 16 Alkaline Phosphatase 73 Total Protein 7.6 Albumin 3.5 COVID-19 Source Nasal/Nares SARS-CoV-2 (PCR) Negative HPI General Mode of arrival: ambulatory. Limitations to Documentation: no limitations. Information obtained by: patient. HPI Narrative: patient was referred to ED per her pcp office after receiving lab values that were drawn in follow up from a recent discharge. she has no new c/o. denies lightheadedness, bleeding, increased sob or new c/o. she has been eating and drinking and bowels and bladder functioning well. Related Data Home Medications Medication Instructions Recorded Confirmed metoprolol succinate 12.5 mg PO BID #30 tab 04/16/20 07/24/21 acetaminophen 500 mg tablet 1,000 mg PO TID PRN tab 08/30/20 07/24/21 loperamide 2 mg tablet 2 mg PO QID PRN #60 tab 09/01/20 07/24/21 omeprazole 40 mg capsule,delayed 40 mg PO DAILY #30 cap 10/04/20 07/24/21 release cyanocobalamin (vitamin B-12) 1,000 mcg PO DAILY #0 tab 07/21/21 07/24/21 [Vitamin B-12] Previous Rx's Medication Instructions Recorded metoprolol succinate 12.5 mg PO BID #30 tab 04/16/20 loperamide 2 mg tablet 2 mg PO QID PRN #60 tab 09/01/20 omeprazole 40 mg capsule,delayed 40 mg PO DAILY #30 cap 10/04/20 release cyanocobalamin (vitamin B-12) 1,000 mcg PO DAILY #0 tab 07/21/21 [Vitamin B-12] Allergies Allergy/AdvReac Type Severity Reaction Status Date / Time morphine Allergy Intermediate Hives Unverified 07/24/21 16:17 General Stated Complaint: GenMedical JEANIE: 3 Review of Systems All systems reviewed & are unremarkable except as noted in HPI and below Constitutional Constitutional: Denies fever(s), Denies headache(s) and Reports lethargy ENT Ears, Nose, Mouth, and Throat: Denies headache(s) Cardiovascular Cardiovascular: Denies chest pain, Denies syncope, Denies rapid heart rate, Denies lightheadedness and Denies dyspnea Respiratory Respiratory: Denies cough and Denies dyspnea Gastrointestinal Gastrointestinal: Denies abdominal pain, Denies hematochezia and Denies vomiting Genitourinary Genitourinary: Denies hematuria Musculoskeletal Musculoskeletal: Denies back pain and Denies muscle weakness Neurologic Neurologic: Denies syncope and Denies headache(s) [facility] Medical History Acute CHF prior to TAVR. none since then Adenocarcinoma of right breast s/p Lumpectomy Advance directive on file Anemia Aortic stenosis, severe s/p TAVR Cancer of ascending colon metastatic to intra-abdominal lymph node S/p Right hemicolectomy Diarrhea Factitious hyperthyroidism GERD (gastroesophageal reflux disease) H/O malignant neoplasm of breast H/O malignant neoplasm of colon Hypertension Hypertension Hypomagnesemia Incarcerated incisional hernia Normocytic anemia Severe aortic stenosis s/p TAVR UTI (urinary tract infection) Yeast dermatitis Surgical History H/O cardiac catheterization H/O colonoscopy H/O heart valve replacement with porcine valve History of esophagogastroduodenoscopy (EGD) History of ventral hernia repair 07/01/19 at [facility] [place] S/P cholecystectomy S/P recurrent ventral herniorrhaphy pt has [id number] polypropalene mesh implanted S/P right hemicolectomy S/p TAVR (transcatheter aortic valve replacement), bioprosthetic Status post closure of ileostomy Status post right breast lumpectomy Family History Mother Stroke Hypertension Son Diabetes type 2 Son Diabetes type 2 Father Cancer lung cancer - smoker Brother Cancer unknown type Social History Smoking/Tobacco Use Status: Former Tobacco Use Pack-years: 141 Tobacco: How many years used: 47 Smoking risk assessment performed?: Yes Alcohol Intake: former Drug use: Never Substance use type: does not use Current gender identity: female Do you feel safe at home: Yes Do you feel safe in your relationship?: Yes Exam Const General: cooperative, comfortable and no acute distress Nutritional Appearance: overweight Orientation: alert, awake and oriented x3 HENMT Head: normal to inspection, normocephalic and atraumatic Mouth: oral mucosae normal Resp Effort & Inspection: normal respiratory effort Auscultation: clear to auscultation bilaterally Cardio Rate: regular rate Rhythm: regular rhythm GI Inspection: normal to inspection Palpation: soft Auscultation: normal bowel sounds Skin General skin exam: no rashes or lesions noted and ecchymosis (some old bruising from old lab draws, no excessive bruising or petichiae no) Neuro General: patient alert, patient awake and patient oriented x3 Course Vital Signs Vital signs: Vital Signs Temperature 36.7 C 07/24/21 16:13 Pulse 94 H 07/24/21 16:13 Blood Pressure 146/87 H 07/24/21 16:13 Pulse Oximetry 100 07/24/21 16:13 Temperature 36.7 C 07/24/21 16:13 Temperature Source Temporal Artery Scan 07/24/21 16:13 Pulse 86 07/24/21 20:01 Pulse 86 07/24/21 20:01 Respiratory Rate 16 07/24/21 20:01 Respiratory Effort Short of Breath 07/24/21 16:18 Blood Pressure 110/57 L 07/24/21 20:01 Blood Pressure Mean 62 07/24/21 20:01 Blood Pressure Position Sitting 07/24/21 16:13 Pulse Oximetry 99 07/24/21 20:00 Oxygen Delivery Method Room Air 07/24/21 16:13 Oxygen Flow Rate 0 07/24/21 16:13 Pain Level 4 07/24/21 16:13 Comment 07/24/21 16:13 Lab/Test Results Lab/Test Results: Laboratory Tests Range/Units 07/24/21 07/24/21 16:50 18:00 Sodium (136-145) mmol/L 139 Potassium (3.5-5.1) mmol/L 4.1 Chloride (98-107) mmol/L 104 Carbon Dioxide (21.0-32.0) mmol/L 26.5 Anion Gap (3-11) mmol/L 8.5 BUN (7-18) mg/dL 23 H Creatinine (0.55-1.02) mg/dL 1.2 H Estimated GFR/1.73 m2 (mL/min/1.73m2) 43.80 Glucose (74-106) mg/dL 104 Calcium (8.5-10.1) mg/dL 9.2 Total Bilirubin (0.2-1.0) mg/dL 0.8 AST (15-37) U/L 13 L ALT (14-59) U/L 16 Alkaline Phosphatase (46-116) U/L 73 Total Protein (6.4-8.2) g/dL 7.6 Albumin (3.4-5.0) g/dL 3.5 COVID-19 Source Nasal/Nares SARS-CoV-2 (PCR) (Negative) Negative
== END 2021-07-24 20:41 | disposition home or self-care (01) ==
PROVIDERS: Emergency Provider Nurse Practitioner Acute Care; PCP Nurse Practitioner Family
DX: D69.6 Thrombocytopenia, unspecified; Z20.822 Contact with and (suspected) exposure to COVID-19; R06.02 Shortness of breath
CPT/HCPCS: 36415; 71275; 80053; 87635; 96360; 96361; 99285; 85025; 99283; J3490

== ENCOUNTER 2021-08-23 21:38 | Inpatient (IN) | payer MEDICARE, SELFPAY ==
[2021-08-23] VITALS (15 sets, daily range): BP systolic 154; BP diastolic 73; PULSE 90–102; RESP 14–28; TEMP 39.4; O2SAT 94–99
--- NOTE | 2021-08-23 00:24 | DI.CT_ITS ---
Exam(s) CT CHEST W EXAM: CT CHEST W CLINICAL HISTORY: Fever, Eval new port placement TECHNIQUE: Imaging Protocol: Axial computed tomography images with coronal and sagittal reformatted images were created and reviewed CONTRAST MATERIAL: Intravenous: Omnipaque 350 Contrast volume:70 mL. COMPARISON: MG Combo Unilateral-RIGHT from 06/17/2018 [facility] MG mammo screening from 06/18/2019 [facility] MG mammo screening from 06/18/2019 [facility] MAMMO SCREENING 60 MIN DUR from 07/07/[address] CHEST PE CTA from 07/24/[address] CHEST PE CTA from 07/24/2021 FINDINGS: Tracheobronchial tree: Patent where visualized. Mediastinum and Celia: No dominant adenopathy or fluid collection. Pulmonary parenchyma: There is a stable 1 x 0.7 cm nodule in the superior segment of the left lower l obe. The nodular infiltrate in the right upper lobe laterally (series 3, image 153) is stable. Mild paraseptal emphysematous changes are present in the lungs. There is interval worsening of the groun d-glass infiltrate in the right upper lobe. No other infiltrates are seen in the lungs. Pleura: No effusion or pneumothorax. Heart: The heart is not dilated. Mild coronary artery calcification. Aortic valve replacement. Aorta: Thoracic aorta non-dilated. Atherosclerosis. Upper abdomen: Simple right renal cyst. Status post cholecystectomy. Stable bile duct. Lymph nodes: Within normal limits. Bones: Old vertebral body fractures. Old sternal fracture. Tubes, Catheters, and Lines: The patient has a right-sided Lzhxtr-D-Hnec catheter. No focal fluid co llection or inflammatory changes are seen around the Msrozd-H-Zvpj to suggest an abscess. Soft tissues: The spiculated area in the right breast is unchanged. This is seen on prior mammograms and likely reflects the patient's prior radiation therapy and lumpectomy. This area has been stable compared to prior mammograms. IMPRESSION: 1. Slight progression in the changes in the right upper lobe suggesting slight worsening of the pneum onia. 2. Stable pulmonary nodules. 3. New right indwelling central venous catheter. The tip is in good position. No fluid collection o r inflammatory changes are seen around the catheter. RADIATION DOSE DELIVERED: 533.31mGy.cm Total DLP DATA REPOSITORY: All CT scans at this facility are submitted to the National Radiology Data Registry (NRDR) Dose Index Registry (DIR) with the [employer] [place] [employer] ([employer]). RADIATION OPTIMIZATION: All CT scans at this facility use at least one of these dose optimization te chniques: automated exposure control; mA and/or kV adjustment per patient size (includes targeted exa ms where dose is matched to clinical indication); or iterative reconstruction.
--- NOTE | 2021-08-23 21:45 | RT.EKG_ITS ---
APPROVED REPORT Exam: Resting ECG Reason for Exam: Fever, hx aortic valve replacement Patient Location: E HR:97 bpm ECG Measurements Heart Rate 97 AXIS AK 182 P 42 QRSd 147 QRS 11 QT 362 T 171 QTc 461 Conclusion Sinus rhythm...normal P axis, V-rate 60- 99 Left bundle branch block...QRSd>120, broad/notched R
[2021-08-23 22:12] LABS: Lactate 1.2 mmol/L (0.6-1.4)
[2021-08-23 22:17] LABS: Absolute Lymphocyte Count 0.04 10^3/uL (1.2-3.4); HCT 24.1 % (36.0-46.0); HGB 8.2 g/dL (11.2-15.7); MCH 29.1 pg (27.0-33.0); MCV 85.5 fL (80-95); MPV 10.4 fL (8.0-11.0); Nucleated RBC 0 %; RBC 2.82 10^6/uL (3.93-5.22); RDW 14.2 % (11.7-14.6); RDW-SD 43.7 fL
[2021-08-23 22:29] LABS: WBC 0.05 10^3/uL (4.4-10.8)
--- NOTE | 2021-08-23 22:31 | ED.GENADUL_ITS ---
Discharge Plan Disposition Patient Disposition: [facility] INPATIENT Condition: Serious Discharge Details Clinical Impression: Fever and neutropenia Primary Care Provider: Tiana Romano ED Provider: Emelia Langley Home Meds and New Rx's Prescriptions: No Action acetaminophen [Tylenol Extra Strength] 500 mg tablet 1,000 mg PO TID PRNRF: 0 loperamide [Imodium A-D] 2 mg tablet 2 mg PO QID PRN (Reason: loose stool) Qty: 60 RF: 12 omeprazole 40 mg capsule,delayed release(DR/EC) 40 mg PO DAILY Qty: 30 RF: 12 Venclexta 100 mg tablet 100 mg PO DAILY RF: 0 folic acid 1 mg tablet 1 mg PO DAILY RF: 0 metoprolol succinate 25 mg Tablet Extended Release 24 Hr 12.5 mg PO BID Qty: 30 RF: 0 cyanocobalamin (vitamin B-12) [Vitamin B-12] 500 mcg Tablet 1,000 mcg PO DAILY Qty: 0 RF: 0 Medical Decision Making 76-year-old female presents to the ER via EMS with chief complaint of fever. She was given Zofran by EMS prior to arrival. Periphreal IV was started. She is a leukemia patient and is followed by heme-onc at [facility]. She had a Port-A-Cath placed at [facility] yesterday. She reports nausea, right-sided chest pain, right neck pain where the port was placed. There is some erythema surrounding the area. Tender to palpation. She does endorse chills. Denies any diarrhea. She is febrile at 39.4 on arrival. She does not have any Tylenol at home. She did have blood drawn earlier today at the cancer center. Past medical history includes CHF, aortic stenosis, colon cancer, GERD hypertension surgical history includes cardiac catheterization, aortic valve replacement, hemicolectomy, cholecystectomy breast lumpectomy. She is a full code. She did began a new chemo medication venetoclax couple of days ago per patient report. Fever work-up ordered including CBC, CMP, lactate, blood cultures x2, urinalysis, troponins, EKG. Urinalysis. Covid swab. However patient has had 4 - Covid swabs recently. Last 1 was 10 days ago. Initial troponin less than 0.05. EKG shows left bundle branch block which is consistent with previous EKGs. EKG was reviewed by [Dr. Hardik Curry MD] ER attending, please see his official report. CT chest with contrast ordered to evaluate port. CBC shows leukopenia white blood cell count of 0.05 critically low which is down from 0.09 this morning. RBCs 2.2 hemoglobin 8.2 hematocrit 24.1 platelets are 29. This is actually improved from patient's previous. Absolute neutrophils 0.01 which are steadily decreasing over the last few days. Lactate 1.2, BUN 21 creatinine 1.0 GFR 54 magnesium slightly low at 1.5. 2251: Call made to [facility] [place] for hematology oncology consult and possible transfer request. 2303: Spoke with Hematology Oncology Dr. Scarlett Garza with [facility], she agrees with current workup so far, she recommends Cefipime and consider Vancomycin if indicated. They are at bed capacity at this time, will speak with Hospitalist. She agrees to be available for consultation daily I did relay that CT chest is pending to evaluate possible port as possible source. She verbalized understanding she states that it should be very rare since it has been less than 24 hours since port was placed. 2328: Will page hospitalist for admission. 2340: Spoke with Dr. Joiner who agrees to accept patient for admission. He does recommend Vancomycin as well. ED admission holding orders placed at the request of Dr. Joiner. HPI General Mode of arrival: EMS . Date/Time Provider Initiated Documentation: 08/23/21 21:45 . Limitations to Documentation: no limitations . Information obtained by: patient . HPI Narrative: 76-year-old female presents to the ER via EMS with chief complaint of fever. She was given Zofran by EMS prior to arrival. Periphreal IV was started. She is a leukemia patient and is followed by heme-onc at [facility]. She had a Port-A-Cath placed at [facility] yesterday. She reports nausea, right-sided chest pain, right neck pain where the port was placed. There is some erythema surrounding the area. Tender to palpation. She does endorse chills. Denies any diarrhea. She is febrile at 39.4 on arrival. She does not have any Tylenol at home. She did have blood drawn earlier today at the cancer center. Past medical history includes CHF, aortic stenosis, colon cancer, GERD hypertension surgical history includes cardiac catheterization, aortic valve replacement, hemicolectomy, cholecystectomy breast lumpectomy. She is a full code. She did began a new chemo medication venetoclax couple of days ago per patient report. Related Data Home Medications Medication Instructions Recorded Confirmed metoprolol succinate 12.5 mg PO BID #30 tab 04/16/20 08/23/21 acetaminophen 500 mg tablet 1,000 mg PO TID PRN tab 08/30/20 08/23/21 loperamide 2 mg tablet 2 mg PO QID PRN #60 tab 09/01/20 08/23/21 omeprazole 40 mg capsule,delayed 40 mg PO DAILY #30 cap 10/04/20 08/23/21 release cyanocobalamin (vitamin B-12) 1,000 mcg PO DAILY #0 tab 07/21/21 07/24/21 [Vitamin B-12] folic acid 1 mg PO DAILY 08/23/21 08/23/21 venetoclax [Venclexta] 100 mg PO DAILY 08/23/21 08/23/21 Previous Rx's Medication Instructions Recorded metoprolol succinate 12.5 mg PO BID #30 tab 04/16/20 loperamide 2 mg tablet 2 mg PO QID PRN #60 tab 09/01/20 omeprazole 40 mg capsule,delayed 40 mg PO DAILY #30 cap 10/04/20 release cyanocobalamin (vitamin B-12) 1,000 mcg PO DAILY #0 tab 07/21/21 [Vitamin B-12] Allergies Allergy/AdvReac Type Severity Reaction Status Date / Time morphine Allergy Intermediate Hives Unverified 08/23/21 21:43 General Stated Complaint: Fever JEANIE: 2 Review of Systems All systems reviewed & are unremarkable except as noted in HPI and below Constitutional Constitutional: Reports as per HPI and Reports fever(s) Integumentary/Breasts Skin/Breast: Reports as per HPI Comments: Recent port placed at [facility] yesterday fever began today with Nausea, shaking chills, Right sided neck tenderness around port a cath. Hx of Leukemia, neutropenia, pancytopenia. [facility] Medical History Acute CHF prior to TAVR. none since then Adenocarcinoma of right breast s/p Lumpectomy Advance directive on file Anemia Aortic stenosis, severe s/p TAVR Cancer of ascending colon metastatic to intra-abdominal lymph node S/p Right hemicolectomy Diarrhea Factitious hyperthyroidism GERD (gastroesophageal reflux disease) H/O malignant neoplasm of breast H/O malignant neoplasm of colon Hypertension Hypertension Hypomagnesemia Incarcerated incisional hernia Normocytic anemia Severe aortic stenosis s/p TAVR UTI (urinary tract infection) Yeast dermatitis Surgical History H/O cardiac catheterization H/O colonoscopy H/O heart valve replacement with porcine valve History of esophagogastroduodenoscopy (EGD) History of ventral hernia repair 07/01/[place] [facility] [place]ole[place] S/P recurrent ventral herniorrhaphy pt has [id number] polypropalene mesh implanted S/P right hemicolectomy S/p TAVR (transcatheter aortic valve replacement), bioprosthetic Status post closure of ileostomy Status post right breast lumpectomy Family History Mother Stroke Hypertension Son Diabetes type 2 Son Diabetes type 2 Father Cancer lung cancer - smoker Brother Cancer unknown type Social History Smoking/Tobacco Use Status: Former Tobacco Use Pack-years: 141 Tobacco: How many years used: 47 Smoking risk assessment performed?: Yes Alcohol Intake: former Drug use: Never Substance use type: does not use Current gender identity: female Do you feel safe at home: Yes Do you feel safe in your relationship?: Yes Exam Narrative Exam Narrative: Constitutional: Alert and oriented x3. Appears chronically ill. Normal body habitus. Appears uncomfortable, shaky. Head: Normocephalic, no trauma. Eyes: Pupils PERRLA, Red reflex noted, EOM's intact. Eyelids symmetrical without lesions, discharge, or swelling. ENT: Bilateral TM's WNL, External ear normal to inspection, no mastoid TTP, swelling, or erythema, Nasal turbinates WNL, no nasal discharge. Normal dentition, Posterior pharynx WNL, no exudate. Neck and chest: Does have newly placed Port-A-Cath noted to the right upper anterior chest. Does have a incision noted superiorly to the Port-A-Cath. Does have erythema surrounding the Port-A-Cath which extends all the way up past the incision to the right side of her neck. Tenderness with palpation, warmth. Chest: RRR, Normal S1, S2, distal pulses intact. Left bundle branch block. Resp: Lungs no wheezes, rales, or rhonchi. Patient does have a dry cough. Lungs are diminished bilaterally to auscultation. Abdomen: Soft nondistended nontender to palpation all 4 quadrants. Musculoskeletal: Unable to assess gait. 5/5 strength to all four extremities. Skin: Does have small multiple bruises noted. Capillary refill less than 2 sec. no edema noted to bilateral lower extremities. Neurologic: Cranial nerves II-XII intact. Alert and oriented x 3. DTR's intact. Hematologic/Lymphatic: Course Vital Signs Vital signs: Vital Signs Temperature 39.4 C H 08/23/21 21:38 Pulse 102 H 08/23/21 21:38 Respiratory Rate 22 08/23/21 21:38 Blood Pressure 154/73 H 08/23/21 21:38 Pulse Oximetry 94 08/23/21 21:38 Temperature 39.4 C H 08/23/21 21:38 Temperature Source Oral 08/23/21 21:38 Pulse 102 H 08/23/21 21:38 Respiratory Rate 22 08/23/21 21:38 Respiratory Effort 08/23/21 21:45 Blood Pressure 154/73 H 08/23/21 21:38 Pulse Oximetry 94 08/23/21 21:38 Pain Level 8 08/23/21 21:38 Lab/Test Results Lab/Test Results: 08/23/21 22:00 Blood Blood Culture - Pending 08/23/21 21:45 Blood Blood Culture - Pending Laboratory Tests Range/Units 08/23/21 08/23/21 22:00 22:00 WBC (4.4-10.8) 10^3/uL 0.05 L* D Hgb (11.2-15.7) g/dL 8.2 L Hct (36.0-46.0) % 24.1 L VBG Lactate (0.6-1.4) mmol/L 1.2
[2021-08-23 22:33] LABS: ALT 18 U/L (14-59); AST 15 U/L (15-37); Albumin 3.1 g/dL (3.4-5.0); Alkaline Phosphatase 93 U/L (46-116); Anion Gap 8.5 mmol/L (3-11); BUN 21 mg/dL (7-18); Bilirubin, Total 0.9 mg/dL (0.2-1.0); CO2 26.5 mmol/L (21.0-32.0); Calcium 8.6 mg/dL (8.5-10.1); Chloride 102 mmol/L (98-107); Estimated GFR 54.05 (mL/min/1.73m2); Glucose 91 mg/dL (74-106); Magnesium 1.5 mg/dL (1.8-2.4); Potassium 3.7 mmol/L (3.5-5.1); Sodium 137 mmol/L (136-145); Troponin I < 0.05 ng/mL (<0.06)
[2021-08-23 22:41] LABS: Source Nasal/Nares
[2021-08-23 22:42] LABS: Platelet Count 29 10^3/uL (130-400)
[2021-08-23 22:43] LABS: Diff Comment Diff Reviewed; RBC Morphology Normal
[2021-08-23 22:44] LABS: Absolute Neutrophil Count 0.01 10^3/uL (1.2-6.7)
[2021-08-23] MEDS: ACETAMINOPHEN 1,000 MG/100 ML BTL 400 MG IVPB (23:14)
[2021-08-23] MEDS: Ondansetron 4 MG/2 ML VIAL IVP (23:14)
[2021-08-23 23:31] LABS: COVID-19 PCR Negative (Negative)
[2021-08-24] VITALS (11 sets, daily range): BP systolic 97–119; BP diastolic 40–56; PULSE 61–87; RESP 12–25; TEMP 36.4–37.6; O2SAT 94–97
[2021-08-24 00:14] LABS: Bilirubin Negative (Negative); Blood Negative (Negative); Clarity Clear (Clear); Glucose Negative (Negative); Ketones Negative (Negative); Leukocyte Esterase Negative (Negative); Nitrite Negative (Negative); Specific Gravity >= 1.030 (1.005-1.025); Urobilinogen 0.2 EU/dL (Up TO 0.2); pH 6.5 (5-8)
[2021-08-24] MEDS: CEFEPIME 2 GM in Normal Saline 100 ML IVPB ×3 (00:20→22:42)
[2021-08-24 00:22] LABS: Bacteria Few HPF (Negative); Casts Negative LPF (Negative); Crystals Negative HPF (Negative); Epithelial Cells Moderate HPF (Negative); Mucus Negative (Negative); RBC 0-2 HPF (0-2)
[2021-08-24] MEDS: Omnipaque 350 MG/ML 100 ML BTL 70 ML IJ (00:22)
[2021-08-24 00:23] LABS: C & S Indicated? C&S Done As Ordered
[2021-08-24] MEDS: VANCOMYCIN 1,000 MG in Normal Saline 250 ML 166.6666 MG IVPB (00:42)
--- NOTE | 2021-08-24 00:57 | DI.VRAD_ITS ---
PROCEDURE INFORMATION: Exam: CT Chest With Contrast; Diagnostic Exam date and time: 08/23/2021 10:47 PM Age: 76 years old Clinical indication: Patient HX: Fever, eval new port placement - 1 day ago; Additional info: HX leukemia/colon/breast CA TECHNIQUE: Imaging protocol: Diagnostic computed tomography of the chest with contrast. 3D rendering (Not supervised by radiologist): MIP and/or 3D reconstructed images were created by the technologist. Radiation optimization: All CT scans at this facility use at least one of these dose optimization techniques: automated exposure control; mA and/or kV adjustment per patient size (includes targeted exams where dose is matched to clinical indication); or iterative reconstruction. Contrast material: OMNI 350; Contrast volume: 70 ml; Contrast route: INTRAVENOUS (IV); COMPARISON: CT CHEST/ABD/PEL W 07/19/2021 6:06 PM FINDINGS: Tubes, catheters and devices: There is a new right chest wall Port-A-Cath with its distal tip within the lower SVC. No fluid collection around the port or catheter is identified. Again noted is prosthetic aortic valve. Lungs: Again noted is patchy ground-glass opacity within the apical and anterolateral aspects of the right upper lobe, mildly increased from prior study. There are regions of tree-in-bud opacity within the right upper lobe as well, mildly increased from prior study, suggesting infectious small airways disease. Findings include a 9 x 6 mm right upper lobe nodule on image 154, series 3, stable since prior study. There is also a stable 0.7 x 1.1 cm left lower lobe nodule within the superior segment on image 119, series 3. Again noted are multifocal regions of pleuroparenchymal scarring, most marked around the right upper lobe and lateral segment of the right middle lobe, stable. Pleural spaces: There are no pleural effusions present. Heart: Heart size is normal. There is no pericardial effusion. Pulmonary arteries: No central pulmonary embolism is identified. Aorta: There is moderate atherosclerotic calcification throughout the thoracic aorta, without aneurysm formation. Lymph nodes: There is no evidence of lymphadenopathy. Liver: There are multiple sub cm low-dense liver lesions which are too small to characterize but likely represent cysts or benign biliary hamartomas. Gallbladder and bile ducts: There has been a cholecystectomy. There is mild intra and extrahepatic biliary ductal dilatation to the level of the ampulla, likely related to the prior cholecystectomy. Pancreas: The pancreas is moderately atrophic but appears otherwise unremarkable without focal lesion or evidence of acute inflammation. Spleen: There are few tiny subcentimeter low-dense splenic lesions, stable, likely benign. There is an 8 mm right renal cyst, stable. Bones/joints: Again noted is a severe compression fracture involving the L1 vertebra with a moderate compression fracture of L2, stable. No acute fractures are identified. There is no old healed sternal fracture. Soft tissues: There is a 2.4 x 1.4 cm mildly spiculated nodular lesion within the right breast on image 288, series 3, without clear change from prior study. IMPRESSION: 1. New right chest wall Port-A-Cath with its tip within the lower SVC. No fluid collection around the port or catheter is identified. 2. Overall mild increase in tree-in-bud opacities within the right upper lobe with surrounding patchy ground-glass opacity, suggesting infectious small airways disease with adjacent pneumonitis. 3. Stable right upper lobe and left lower lobe nodules, as described above, indeterminate. Recommend attention on follow-up studies. 4. Stable 2.4 x 1.4 cm mildly spiculated soft tissue nodular lesion within the right breast, suggesting neoplasm. Recommend correlation with mammography. Dictated and Authenticated by: Bernard Abad MD. Ordering:ADA Kapoor MD
[2021-08-24 02:25] LABS: Troponin I 0.05 ng/mL (<0.06)
[2021-08-24] MEDS: Normal Saline Flush 10 ML SYR IVP ×2 (02:39→20:39)
--- NOTE | 2021-08-24 08:13 | HPE_ITS ---
Date of service: 08/24/21 Time of Service: 08:14 Assessment and Plan Assessment and plan (1) Thrombocytopenia: Status: Chronic Assessment and plan: This problem be watched with daily blood counts. (2) Fever and neutropenia: Status: Acute Assessment and plan: The source of her fever may be the recent port placement on the right upper chest and/or a pulmonary infiltrate. She is on cefepime and vancomycin. (3) Breast mass: Status: Chronic Assessment and plan: This was noted on the recent CT scan. This will need follow-up with oncology. (4) Lung infiltrate: Status: Acute Assessment and plan: This could be infectious process or could be related to her leukemia. She will be followed closely for this problem. She is on antibiotics. History of Present Illness History of Present Illness Chief Complaint: fever, nausea Narrative: This 76-year-old female was recently diagnosed with leukemia. She had a port placed in her right upper chest 2 days ago at [facility]. She has recently been started on chemotherapy. She has a history of colon and breast cancer which she feels is stable. She felt fine through the day y ester but then last night developed shakes nausea and fever. She came to the emergency department by EMS. She was found in the emergency department to be neutropenic with a fever of 39 degrees. She has had no vomiting. She also had some soreness of her right side of her neck and upper chest near where the port was placed. She has not been around anyone else has been ill. She lives with her son, his girlfriend and her granddaughter. Review of Systems Constitutional Constitutional: Denies body ache(s), Denies chills, Reports fever(s), Reports malaise and Reports poor appetite ENT Ears, Nose, Mouth, and Throat: Reports neck pain Cardiovascular Cardiovascular: Denies chest pain, Denies syncope, Denies palpitations and Denies dyspnea Respiratory Respiratory: Denies chest congestion, Denies cough and Denies dyspnea Gastrointestinal Gastrointestinal: Denies abdominal pain, Denies heartburn, Denies diarrhea, Reports nausea and Denies vomiting Genitourinary Genitourinary: Denies urinary frequency, Denies difficulty voiding and Denies urinary incontinence Musculoskeletal Musculoskeletal: Reports neck pain Neurologic Neurologic: Denies syncope Endocrine Endocrine: Denies palpitations [facility] Medical History (Updated 09/03/21 @ 14:09 by Shameka Bateman MD) Acute CHF prior to TAVR. none since then Adenocarcinoma of right breast s/p Lumpectomy Advance directive on file Anemia Aortic stenosis, severe s/p TAVR Cancer of ascending colon metastatic to intra-abdominal lymph node S/p Right hemicolectomy Diarrhea Factitious hyperthyroidism GERD (gastroesophageal reflux disease) H/O malignant neoplasm of breast H/O malignant neoplasm of colon Hypertension Hypertension Hypomagnesemia Incarcerated incisional hernia Leukemia Normocytic anemia Palliative care patient Severe aortic stenosis s/p TAVR UTI (urinary tract infection) Yeast dermatitis Surgical History H/O cardiac catheterization H/O colonoscopy H/O heart valve replacement with porcine valve History of esophagogastroduodenoscopy (EGD) [place] [facility] [place]ole[place] S/P recurrent ventral herniorrhaphy pt has [id number] polypropalene mesh implanted S/P right hemicolectomy S/p TAVR (transcatheter aortic valve replacement), bioprosthetic Status post closure of ileostomy Status post right breast lumpectomy Family History Mother Stroke Hypertension Son Diabetes type 2 Son Diabetes type 2 Father Cancer lung cancer - smoker Brother Cancer unknown type Social History Smoking/Tobacco Use Status: Former Tobacco Use Pack-years: 141 Tobacco: How many years used: 47 Smoking risk assessment performed?: Yes Alcohol Intake: former Drug use: Never Substance use type: does not use Current gender identity: female Do you feel safe at home: Yes Do you feel safe in your relationship?: Yes Meds Allergies and Home Medications Allergies Allergy/AdvReac Type Severity Reaction Status Date / Time morphine Allergy Intermediate Hives Unverified 08/23/21 21:43 Home Medications Medication Instructions Recorded Confirmed Type metoprolol succinate 12.5 mg PO BID #30 tab 04/16/20 08/23/21 Rx acetaminophen 500 mg tablet 1,000 mg PO TID PRN tab 08/30/20 08/23/21 History loperamide 2 mg tablet 2 mg PO QID PRN #60 tab 09/01/20 08/23/21 Rx omeprazole 40 mg capsule,delayed 40 mg PO DAILY #30 cap 10/04/20 08/23/21 Rx release cyanocobalamin (vitamin B-12) 1,000 mcg PO DAILY #0 tab 07/21/21 07/24/21 Rx [Vitamin B-12] folic acid 1 mg PO DAILY 08/23/21 08/23/21 History acyclovir 400 mg PO BID #60 tab 09/03/21 Rx fluconazole 200 mg PO DAILY #30 tab 09/03/21 Rx levofloxacin 750 mg PO Q48H #14 tab 09/03/21 Rx magnesium oxide 400 mg PO BID #30 tab 09/03/21 Rx nystatin 1 applic TOPICAL TID #60 g 09/03/21 Rx phenol [Sore Throat (phenol)] 180 ml MUCOUS MEMBRANE QID PRN PRN 09/03/21 Rx #0 ml ondansetron 4 mg PO Q8H PRN #12 tab 09/06/21 Rx Exam Const General: cooperative, comfortable and no acute distress Nutritional Appearance: overweight Orientation: alert and awake [facility] Head: normal to inspection Neck Neck: normal visual inspection and no lymphadenopathy Thyroid: thyroid normal Chest Chest: tenderness Other: At the port placement site in the right upper chest there is some tenderness and erythema superior to the port over the mid right clavicle. No abscess is palpable. Resp Effort & Inspection: normal respiratory effort and able to speak in complete sentences Auscultation: no rales, no rhonchi and no wheezes Cardio Jugular venous pressure: no JVD Rate: regular rate Rhythm: regular rhythm Heart Sounds: S1 normal, S2 normal, no click, no gallops and no murmurs GI Inspection: normal to inspection and non-distended Palpation: no hepatosplenomegaly, no masses and nontender Skin General skin exam: no rashes or lesions noted Extrem Right upper extremity: no edema Left upper extremity: no edema Results Labs Result diagrams: 09/03/21 06:05 09/03/21 06:05 Labs: Laboratory Results - last 24 hr 08/23/21 08/23/21 08/23/21 22:00 22:00 22:00 WBC 0.05 L* D RBC 2.82 L Hgb 8.2 L Hct 24.1 L MCV 85.5 MCH 29.1 MCHC 34.0 RDW 14.2 Plt Count 29 L* MPV 10.4 Immature Gran % 0.0 Neutrophils % 20.0 Lymphocytes % 80.0 Monocytes % 0.0 Eosinophils % 0.0 Basophils % 0.0 Nucleated RBC % 0 Absolute Neutrophils 0.01 L* Absolute Lymphocytes 0.04 L Absolute Monocytes 0.00 L Absolute Eosinophils 0.00 Absolute Basophils 0.00 RBC Morphology Normal Poikilocytosis VBG Lactate 1.2 Sodium 137 Potassium 3.7 Chloride 102 Carbon Dioxide 26.5 Anion Gap 8.5 BUN 21 H Creatinine 1.0 Estimated GFR/1.73 m2 54.05 Glucose 91 Calcium 8.6 Magnesium 1.5 L Total Bilirubin 0.9 AST 15 ALT 18 Alkaline Phosphatase 93 Troponin I < 0.05 Total Protein 7.0 Albumin 3.1 L Urine Color Urine Clarity Urine pH Ur Specific [place] Urine Protein Urine Ketones Urine Blood Urine Nitrite Urine Bilirubin Urine Urobilinogen Ur Leukocyte Esterase Urine RBC Urine WBC Ur Epithelial Cells Urine Crystals Urine Bacteria Urine Casts Urine Mucus Ur Culture Indicated? Urine Glucose COVID-19 Source SARS-CoV-2 (PCR) 08/23/21 08/23/21 08/24/21 22:15 23:10 02:00 WBC RBC Hgb Hct MCV MCH MCHC RDW Plt Count MPV Immature Gran % Neutrophils % Lymphocytes % Monocytes % Eosinophils % Basophils % Nucleated RBC % Absolute Neutrophils Absolute Lymphocytes Absolute Monocytes Absolute Eosinophils Absolute Basophils RBC Morphology Poikilocytosis VBG Lactate Sodium Potassium Chloride Carbon Dioxide Anion Gap BUN Creatinine Estimated GFR/1.73 m2 Glucose Calcium Magnesium Total Bilirubin AST ALT Alkaline Phosphatase Troponin I 0.05 Total Protein Albumin Urine Color Yellow Urine Clarity Clear Urine pH 6.5 Ur Specific [place] >= 1.030 H Urine Protein 30 H Urine Ketones Negative Urine Blood Negative Urine Nitrite Negative Urine Bilirubin Negative Urine Urobilinogen 0.2 Ur Leukocyte Esterase Negative Urine RBC 0-2 Urine WBC 3-5 Ur Epithelial Cells Moderate Urine Crystals Negative Urine Bacteria Few Urine Casts Negative Urine Mucus Negative Ur Culture Indicated? C&S Done As Ordered Urine Glucose Negative COVID-19 Source Nasal/Nares SARS-CoV-2 (PCR) Negative Last Vital Signs Temp 37.3 C 08/24/21 01:36 Pulse 70 08/24/21 01:36 Resp 16 08/24/21 01:36 BP 99/47 L 08/24/21 01:36 Pulse Ox 94 08/24/21 01:36
[2021-08-24] MEDS: Folic Acid 1 MG TAB PO (09:27)
[2021-08-24] MEDS: Normal Saline 500 ML 30 ML IV (09:27)
[2021-08-24] MEDS: Metoprolol CR 25 MG TABCR 12.5 MG PO (09:27)
[2021-08-24] MEDS: Omeprazole 20 MG CAPCR 40 MG PO (09:28)
[2021-08-24] MEDS: MAGNESIUM SULFATE 4 GM/100 ML BAG IVPB (09:28)
[2021-08-24] MEDS: Magnesium Oxide 400 MG TAB PO ×2 (09:28→20:36)
--- NOTE | 2021-08-24 10:06 | INITIAL_ITS ---
- If Service Date Differs Date of service: 08/24/21 Time of Service: 10:06 Care Management Initial Assess REASON FOR HOSPITALIZATION:: Neutropenic Fever, Breast Mass, Lung Infiltrate PAST MEDICAL HISTORY/PAST SURGICAL HISTORY:: Medical History . Acute CHF. prior to TAVR. none since then. Adenocarcinoma of right breast. s/p Lumpectomy. Advance directive on file. Anemia. Aortic stenosis, severe. s/p TAVR. Cancer of ascending colon metastatic to intra-abdominal lymph node. S/p Right hemicolectomy. Diarrhea. Factitious hyperthyroidism. GERD (gastroesophageal reflux disease). H/O malignant neoplasm of breast. H/O malignant neoplasm of colon. Hypertension. Hypertension. Hypomagnesemia. Incarcerated incisional hernia. Normocytic anemia. Severe aortic stenosis. s/p TAVR. UTI (urinary tract infection). Yeast dermatitis. Surgical History . H/O cardiac catheterization. H/O colonoscopy. H/O heart valve replacement with porcine valve. History of esophagogastroduodenoscopy (EGD). History of ventral hernia repair. 07/01/[place] [facility] [place] S/P cholecystectomy. S/P recurrent ventral herniorrhaphy. pt has [id number] polypropalene mesh implanted. S/P right hemicolectomy. S/p TAVR (transcatheter aortic valve replacement), bioprosthetic. Status post closure of ileostomy. Status post right breast lumpectomy PREVIOUS FUNCTIONAL STATUS/SOCIAL/FAMILY SUPPORTS:: Polina lives in [facility] with her son, daugther in-law, and grand daughter. 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 She is currently on social security. Polina is independent at baseline and does not drive. She does not currently have a running car in her household and will n eed to use [facility] for transportation. CURRENT FUNCTIONAL STATUS:: Polina was lying in bed when CM met with her. She was alert, oriented and easily engaged in conversation. Overall she is feeling better than when she came in yesterday and is no longer having chills which according to her is the main reason she went to the ED. Polina spoke of her and shared that he last October from Alzheimer's which was hard for her. ADVANCE DIRECTIVES:: None on file Has patient been provided with info about the portal/API?: Yes Did the patient sign up for the portal?: No CODE STATUS:: Full Code INSURANCE COVERAGE / FINANCIAL ISSUES:: Medicare CURRENT HOME/COMMUNITY SERVICES/EQUIPMENT:: [employer] PRIMARY CARE PHYSICIAN:: Tiana Haas PATIENT/FAMILY EDUCATION NEEDS:: Review discharge instructions, limitations and plan to follow up with community prividers, ask me three TRANSPORTATION:: Via [facility] arranged by CM. PLAN:: Polina will likely be discharged home with no new services when medically cleared by MD. Polina declines Services at this time. Anticipate Polina will be transported by [facility] (CM will arrange.) Polina will need to follow up with her community providers and discharge plan of care. CM continues to support.
--- NOTE | 2021-08-24 15:00 | PHA.REVIEW ---
Pharmacy Admission Review - Admission Clinical Review (Last Reviewed 07/21/21 @ 12:26 by Jose Hayes MD) Lung infiltrate (Acute) Breast mass (Acute) Fever and neutropenia (Acute) morphine Allergy (Intermediate, Unverified 08/23/21 21:43) Hives Resuscitation Status Full Code Height 4 ft 11 in Weight 66.8 kg - Renal Dosing Renal Dosing: BUN 21 mg/dL (7-18) H 08/23/21 22:00 Creatinine 1.0 mg/dL (0.55-1.02) 08/23/21 22:00 Medications needing adjustments: Reviewed (Crcl ~34.91 mL/min. Cefepime is renally adjusted, other current meds okay.) - Anticoagulation Anticoagulation: Hgb 8.2 g/dL (11.2-15.7) L 08/23/21 22:00 Hct 24.1 % (36.0-46.0) L 08/23/21 22:00 Plt Count 29 10^3/uL (130-400) L* 08/23/21 22:00 Creatinine 1.0 mg/dL (0.55-1.02) 08/23/21 22:00 DVT Prophylaxis: Reviewed (thrombocytopenia) Therapeutic Anticoagulation: N/A - Opiate Usage Evaluate Pain Scale/Pains Meds: N/A - Relevant Labs Sodium 137 mmol/L (136-145) 08/23/21 22:00 Potassium 3.7 mmol/L (3.5-5.1) 08/23/21 22:00 Chloride 102 mmol/L (98-107) 08/23/21 22:00 Magnesium 1.5 mg/dL (1.8-2.4) L 08/23/21 22:00 Electrolytes, C-Reactive P, ESR: Reviewed (PO and IV mag replacement ordered.) - DM Control DM Control: Glucose 91 mg/dL (74-106) 08/23/21 22:00 Insulin Dosing: N/A - Heart Failure/KY Heart Failure/KY: Troponin I 0.05 ng/mL (<0.06) 08/24/21 02:00 EF%, EDD's, B-Blockers, Diuretics: Reviewed - BP Control BP Control: Blood Pressure 119/40 If elevated: Reviewed (BP was elevated on admission and has been low since.) - Qtc Review If Elevated: N/A (EKG on admission has not been read yet) - IV to PO Switch IV Medications: Reviewed - Home Meds Home Med List reviewed: Reviewed Relevent Home Meds Not ordered & why?: cyanocobalamin (unverified), venetoclax - Current meds Current Medication Order Review: Intervened (Discontinued duplicate med orders.) - Comments Comments/Follow Ups: Watch BP, SCr, mag, plt, labs and for med changes (home meds, possible renal dose adjustments). Antibiotic Activity - Pharmacy Antibiotic Review Pharmacy Antibiotic Activity: Renal function adjustment (Vancomycin and cefepime ordered to cover for neutropenic fever and possible port infection. Blood and urine cultures are pending.)
[2021-08-24] MEDS: Nystatin POWDER 60 GM JAR TP ×2 (16:23→20:36)
--- NOTE | 2021-08-24 18:13 | W.PM.PROGNOT ---
Date of Service Date of service: 08/24/21 Time of Service: 18:14 Subjective Subjective Interval history since last seen: MS Alvarado is doing better. She states her right chest still hurts, but otherwise she is not in any discomfort. Denies dizziness, shortness of breath, has a slight nonproductive cough, denies n/v/diarrhea. Her blood cultures as well as urine culture are both still pending. She is still quite neutropenic with ANC of 0.01. Last fever (39.4) was at 21:38 yesterday. No fever today. Continue empiric vancomycin/cefepime. If WBC not better tomorrow, would consult with [facility] oncology re role for gCSF. Objective Last Vital Signs Temp 36.7 C 08/24/21 16:43 Pulse 64 08/24/21 16:43 Resp 15 08/24/21 16:43 BP 116/42 L 08/24/21 16:43 Pulse Ox 95 08/24/21 16:43 Laboratory Results - last 24 hr 08/23/21 08/23/21 08/23/21 22:00 22:00 22:00 WBC 0.05 L* D RBC 2.82 L Hgb 8.2 L Hct 24.1 L MCV 85.5 MCH 29.1 MCHC 34.0 RDW 14.2 Plt Count 29 L* MPV 10.4 Immature Gran % 0.0 Neutrophils % 20.0 Lymphocytes % 80.0 Monocytes % 0.0 Eosinophils % 0.0 Basophils % 0.0 Nucleated RBC % 0 Absolute Neutrophils 0.01 L* Absolute Lymphocytes 0.04 L Absolute Monocytes 0.00 L Absolute Eosinophils 0.00 Absolute Basophils 0.00 RBC Morphology Normal Poikilocytosis VBG Lactate 1.2 Sodium 137 Potassium 3.7 Chloride 102 Carbon Dioxide 26.5 Anion Gap 8.5 BUN 21 H Creatinine 1.0 Estimated GFR/1.73 m2 54.05 Glucose 91 Calcium 8.6 Magnesium 1.5 L Total Bilirubin 0.9 AST 15 ALT 18 Alkaline Phosphatase 93 Troponin I < 0.05 Total Protein 7.0 Albumin 3.1 L Urine Color Urine Clarity Urine pH Ur Specific [place] Urine Protein Urine Ketones Urine Blood Urine Nitrite Urine Bilirubin Urine Urobilinogen Ur Leukocyte Esterase Urine RBC Urine WBC Ur Epithelial Cells Urine Crystals Urine Bacteria Urine Casts Urine Mucus Ur Culture Indicated? Urine Glucose COVID-19 Source SARS-CoV-2 (PCR) 08/23/21 08/23/21 08/24/21 22:15 23:10 02:00 WBC RBC Hgb Hct MCV MCH MCHC RDW Plt Count MPV Immature Gran % Neutrophils % Lymphocytes % Monocytes % Eosinophils % Basophils % Nucleated RBC % Absolute Neutrophils Absolute Lymphocytes Absolute Monocytes Absolute Eosinophils Absolute Basophils RBC Morphology Poikilocytosis VBG Lactate Sodium Potassium Chloride Carbon Dioxide Anion Gap BUN Creatinine Estimated GFR/1.73 m2 Glucose Calcium Magnesium Total Bilirubin AST ALT Alkaline Phosphatase Troponin I 0.05 Total Protein Albumin Urine Color Yellow Urine Clarity Clear Urine pH 6.5 Ur Specific [place] >= 1.030 H Urine Protein 30 H Urine Ketones Negative Urine Blood Negative Urine Nitrite Negative Urine Bilirubin Negative Urine Urobilinogen 0.2 Ur Leukocyte Esterase Negative Urine RBC 0-2 Urine WBC 3-5 Ur Epithelial Cells Moderate Urine Crystals Negative Urine Bacteria Few Urine Casts Negative Urine Mucus Negative Ur Culture Indicated? C&S Done As Ordered Urine Glucose Negative COVID-19 Source Nasal/Nares SARS-CoV-2 (PCR) Negative
[2021-08-24] MEDS: VANCOMYCIN/WATER (PEG) 1 GM/200 ML BAG IV (20:35)
[2021-08-25 01:24] VITALS: BP 114/55; PULSE 66; RESP 14; TEMP 36.8; O2SAT 95
[2021-08-25 08:07] LABS: HCT 22.4 % (36.0-46.0); HGB 7.6 g/dL (11.2-15.7); MCH 29.3 pg (27.0-33.0); MCHC 33.9 % (32.0-36.0); MCV 86.5 fL (80-95); MPV 9.7 fL (8.0-11.0); RBC 2.59 10^6/uL (3.93-5.22); RDW 14.2 % (11.7-14.6); RDW-SD 43.1 fL
[2021-08-25 08:10] LABS: Anion Gap 6.1 mmol/L (3-11); BUN 20 mg/dL (7-18); CO2 25.9 mmol/L (21.0-32.0); CREATININE 1.1 mg/dL (0.55-1.02); Calcium 8.6 mg/dL (8.5-10.1); Chloride 105 mmol/L (98-107); Estimated GFR 48.42 (mL/min/1.73m2); Glucose 88 mg/dL (74-106); Magnesium 2.7 mg/dL (1.8-2.4); Potassium 4.3 mmol/L (3.5-5.1); Sodium 137 mmol/L (136-145)
[2021-08-25 08:47] VITALS: BP 112/50; PULSE 68; RESP 16; TEMP 36.7; O2SAT 96
[2021-08-25] MEDS: Metoprolol CR 25 MG TABCR 12.5 MG PO ×2 (08:48→21:41)
[2021-08-25] MEDS: Omeprazole 20 MG CAPCR 40 MG PO (08:48)
[2021-08-25] MEDS: Nystatin POWDER 60 GM JAR TP ×3 (08:49→21:41)
[2021-08-25] MEDS: Folic Acid 1 MG TAB PO (08:49)
[2021-08-25] MEDS: Magnesium Oxide 400 MG TAB PO ×2 (08:49→21:41)
[2021-08-25 09:04] LABS: WBC 0.09 10^3/uL (4.4-10.8)
[2021-08-25 09:06] LABS: Platelet Count 22 10^3/uL (130-400)
[2021-08-25 09:11] LABS: Diff Comment Diff Reviewed; RBC Morphology Normal
[2021-08-25] MEDS: CEFEPIME 2 GM in Normal Saline 100 ML IVPB ×2 (11:07→21:38)
--- NOTE | 2021-08-25 11:27 | PGE_ITS ---
Date of Service Date of service: 08/25/21 Time of Service: 11:27 Assessment and Plan Assessment and plan (1) Thrombocytopenia: Status: Chronic Assessment and plan: This problem be watched with daily blood counts. No active bleeding from any site noted. (2) Fever and neutropenia: Status: Acute Assessment and plan: The source of her fever may be the recent port placement on the right upper chest and/or a pulmonary infiltrate. She is on cefepime and vancomycin. Now afebrile since appx 2200 on 08/23. ANC today is 0. Will discuss with oncology whether neulasta is now indicated. (3) Breast mass: Status: Acute Assessment and plan: This was noted on the recent CT scan. This will need follow-up with oncology. (4) Lung infiltrate: Status: Acute Assessment and plan: This could be infectious process or could be related to her leukemia. She will be followed closely for this problem. She is on antibiotics. Subjective Subjective Patient reports: no new complaints, tolerating a regular diet and afebrile; denies diarrhea, nausea, vomiting and shortness of breath Interval history since last seen: Mild cough early this am but none since. No sputum. No dysuria. No BUTTS, nasal drainage. Exam Const General: cooperative, comfortable and no acute distress Nutritional Appearance: overweight Orientation: alert and awake [facility] Head: normal to inspection Neck Neck: normal visual inspection and no lymphadenopathy Chest Chest: tenderness (at R port site. Mild erythema proximal to port.) Resp Effort & Inspection: normal respiratory effort and able to speak in complete s entences Cardio Rate: regular rate Rhythm: regular rhythm Heart Sounds: S1 normal and S2 normal GI Inspection: normal to inspection and non-distended Palpation: no hepatosplenomegaly, no masses and nontender Skin General skin exam: no rashes or lesions noted Extrem Right upper extremity: no edema Left upper extremity: no edema Objective Last Vital Signs Temp 36.7 C 08/25/21 08:47 Pulse 68 08/25/21 08:47 Resp 16 08/25/21 08:47 BP 112/50 L 08/25/21 08:47 Pulse Ox 96 08/25/21 08:47 Laboratory Results - last 24 hr 08/25/21 08/25/21 07:31 07:31 WBC 0.09 L* RBC 2.59 L Hgb 7.6 L Hct 22.4 L MCV 86.5 MCH 29.3 MCHC 33.9 RDW 14.2 Plt Count 22 L* MPV 9.7 Immature Gran % Neutrophils % Lymphocytes % Monocytes % Eosinophils % Basophils % Nucleated RBC % Absolute Neutrophils 0.00 L* Absolute Lymphocytes Not Applicable Absolute Monocytes Not Applicable Absolute Eosinophils Not Applicable Absolute Basophils Not Applicable RBC Morphology Normal Sodium 137 Potassium 4.3 Chloride 105 Carbon Dioxide 25.9 Anion Gap 6.1 BUN 20 H Creatinine 1.1 H Estimated GFR/1.73 m2 48.42 Glucose 88 Calcium 8.6 Magnesium 2.7 H
[2021-08-25] MEDS: VANCOMYCIN/WATER (PEG) 1 GM/200 ML BAG IV (16:17)
[2021-08-25 16:23] VITALS: BP 112/43; PULSE 72; RESP 18; TEMP 36.7; O2SAT 97
[2021-08-25 21:44] VITALS: BP 120/50; PULSE 78; RESP 16; TEMP 37; O2SAT 95
[2021-08-26] VITALS (7 sets, daily range): BP systolic 92–136; BP diastolic 49–55; PULSE 66–77; RESP 16–18; TEMP 36.4–37; O2SAT 94–98
[2021-08-26 07:02] LABS: HCT 21.1 % (36.0-46.0); MCH 28.7 pg (27.0-33.0); MCHC 33.2 % (32.0-36.0); MCV 86.5 fL (80-95); MPV 9.1 fL (8.0-11.0); Nucleated RBC 0 %; RBC 2.44 10^6/uL (3.93-5.22); RDW 14.1 % (11.7-14.6); RDW-SD 43.4 fL
[2021-08-26 07:21] LABS: Anion Gap 6.1 mmol/L (3-11); BUN 25 mg/dL (7-18); CO2 25.9 mmol/L (21.0-32.0); Calcium 8.6 mg/dL (8.5-10.1); Chloride 105 mmol/L (98-107); Estimated GFR 54.05 (mL/min/1.73m2); Glucose 91 mg/dL (74-106); Potassium 4.7 mmol/L (3.5-5.1); Sodium 137 mmol/L (136-145)
[2021-08-26 07:33] LABS: WBC 0.11 10^3/uL (4.4-10.8)
[2021-08-26 07:35] LABS: Platelet Count 19 10^3/uL (130-400)
[2021-08-26 07:40] LABS: RBC Morphology Normal
[2021-08-26 07:42] LABS: Diff Comment Diff Reviewed
[2021-08-26] MEDS: Magnesium Oxide 400 MG TAB PO ×2 (09:26→20:02)
[2021-08-26] MEDS: Folic Acid 1 MG TAB PO (09:26)
[2021-08-26] MEDS: Metoprolol CR 25 MG TABCR 12.5 MG PO ×2 (09:26→20:02)
[2021-08-26] MEDS: CEFEPIME 2 GM in Normal Saline 100 ML IVPB ×2 (09:26→22:41)
[2021-08-26] MEDS: Nystatin POWDER 60 GM JAR TP ×3 (09:27→20:02)
[2021-08-26] MEDS: Omeprazole 20 MG CAPCR 40 MG PO (09:27)
[2021-08-26] MEDS: Normal Saline 500 ML 30 ML IV ×2 (09:28→22:42)
--- NOTE | 2021-08-26 10:54 | PGE_ITS ---
Date of Service Date of service: 08/26/21 Time of Service: 10:55 Assessment and Plan Assessment and plan (1) Thrombocytopenia: Status: Chronic Assessment and plan: This problem be watched with daily blood counts. No active bleeding from any site noted. 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 The source of her fever may be the recent port placement on the right upper chest and/or a pulmonary infiltrate. She is on cefepime and vancomycin. Now afebrile since appx 2200 on 08/23. ANC today is 0. Discussed with oncology at [facility] [place]. Neulasta 5mcg/kg daily until ANC 550 or >. MRSA screen / nasal swab. If negative can stop vancomycin. At time of d/c, home on Levaquin. Also with anemia related to chemotx. Hgb now 7.0 Transfuse 1 unit RBCs and monitor Hgb. (3) Breast mass: Status: Acute Assessment and plan: This was noted on the recent CT scan. This will need follow-up with oncology. Previous h/o breast CA. (4) Lung infiltrate: Status: Acute Assessment and plan: This could be infectious process or could be related to her leukemia. She will be followed closely for this problem. She is on antibiotics. Remains afebrile w/o any pulmonary symptoms. Subjective Subjective Patient reports: no new complaints, tolerating a regular diet and afebrile; denies diarrhea, nausea, vomiting and shortness of breath Exam Const General: cooperative, comfortable and no acute distress Nutritional Appearance: overweight Orientation: alert and awake [facility] Head: normal to inspection Neck Neck: normal visual inspection and no lymphadenopathy Chest Chest: tenderness (at R port site. Mild erythema proximal to port.) Resp Effort & Inspection: normal respiratory effort and able to speak in complete sentences Cardio Rate: regular rate Rhythm: regular rhythm Heart Sounds: S1 normal and S2 normal GI Inspection: normal to inspection and non-distended Palpation: no hepatosplenomegaly, no masses and nontender Skin General skin exam: no rashes or lesions noted Extrem Right upper extremity: no edema Left upper extremity: no edema Objective Last Vital Signs Temp 36.4 C L 08/26/21 06:41 Pulse 70 08/26/21 06:41 Resp 16 08/26/21 06:41 BP 92/49 L 08/26/21 06:41 Pulse Ox 94 08/26/21 06:41 Laboratory Results - last 24 hr 08/26/21 08/26/21 08/26/21 05:40 05:40 10:49 WBC 0.11 L* RBC 2.44 L Hgb 7.0 L Hct 21.1 L MCV 86.5 MCH 28.7 MCHC 33.2 RDW 14.1 Plt Count 19 L* MPV 9.1 Immature Gran % See Differential Neutrophils % Not Applicable Lymphocytes % Not Applicable Monocytes % Not Applicable Eosinophils % Not Applicable Basophils % Not Applicable Nucleated RBC % 0 Absolute Neutrophils Absolute Lymphocytes Not Applicable Absolute Monocytes Not Applicable Absolute Eosinophils Not Applicable Absolute Basophils Not Applicable RBC Morphology Normal Sodium 137 Potassium 4.7 Chloride 105 Carbon Dioxide 25.9 Anion Gap 6.1 BUN 25 H Creatinine 1.0 Estimated GFR/1.73 m2 54.05 Glucose 91 Calcium 8.6 Crossmatch See Detail
[2021-08-26] MEDS: VANCOMYCIN/WATER (PEG) 1 GM/200 ML BAG IV (11:59)
[2021-08-26] MEDS: Acetaminophen 325 MG TAB 650 MG PO (12:46)
[2021-08-26] MEDS: Loperamide 2 MG CAP PO ×2 (14:14→22:43)
[2021-08-26] MEDS: Normal Saline Flush 10 ML SYR IVP ×2 (20:02→22:41)
[2021-08-27] VITALS (8 sets, daily range): BP systolic 109–139; BP diastolic 49–98; PULSE 68–83; RESP 16–18; TEMP 36.5–36.8; O2SAT 95–98
[2021-08-27] MEDS: Omeprazole 20 MG CAPCR 40 MG PO (06:40)
[2021-08-27 07:13] LABS: HCT 26.7 % (36.0-46.0); MCH 28.8 pg (27.0-33.0); MCHC 33.7 % (32.0-36.0); MCV 85.6 fL (80-95); MPV 11.1 fL (8.0-11.0); Nucleated RBC 0 %; RBC 3.12 10^6/uL (3.93-5.22); RDW 14.3 % (11.7-14.6); RDW-SD 43.3 fL
[2021-08-27 07:25] LABS: Platelet Count 18 10^3/uL (130-400); WBC 0.21 10^3/uL (4.4-10.8)
[2021-08-27 07:38] LABS: Absolute Lymphocyte Count 0.18 10^3/uL (1.2-3.4); Absolute Neutrophil Count 0.03 10^3/uL (1.2-6.7); Atypical Lymphocytes % 6; Bands % 2
[2021-08-27 07:39] LABS: Diff Comment Manual Differential; Microcytosis 1+
[2021-08-27 07:41] LABS: ALT 17 U/L (14-59); AST 12 U/L (15-37); Albumin 2.9 g/dL (3.4-5.0); Alkaline Phosphatase 89 U/L (46-116); Anion Gap 8.1 mmol/L (3-11); BUN 22 mg/dL (7-18); Bilirubin, Total 0.9 mg/dL (0.2-1.0); CO2 25.9 mmol/L (21.0-32.0); CREATININE 0.9 mg/dL (0.55-1.02); Chloride 104 mmol/L (98-107); Glucose 84 mg/dL (74-106); Potassium 4.9 mmol/L (3.5-5.1); Sodium 138 mmol/L (136-145); Total Protein 6.9 g/dL (6.4-8.2)
[2021-08-27 07:42] LABS: Vancomycin, Trough 19.5 ug/mL (10.0-20.0)
--- NOTE | 2021-08-27 08:03 | PGE_ITS ---
Date of Service Date of service: 08/27/21 Time of Service: 16:08 Assessment and Plan Assessment and plan (1) Thrombocytopenia: Status: Chronic Assessment and plan: This problem be watched with daily blood counts. No active bleeding from any site noted. 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 The source of her fever may be the recent port placement on the right upper chest and/or a pulmonary infiltrate. She is on cefepime and vancomycin. Now afebrile since appx 2200 on 08/23. ANC today is 0. Discussed with oncology at [facility] [place]. Neulasta 5mcg/kg daily until ANC 550 or >. MRSA screen / nasal swab. If negative can stop vancomycin. At time of d/c, home on Levaquin. Also with anemia related to chemotx. Hgb now 9: Transfused 1 unit RBCs and monitor Hgb. (3) Breast mass: Status: Acute Assessment and plan: This was noted on the recent CT scan. This will need follow-up with oncology. Previous h/o breast CA. (4) Lung infiltrate: Status: Acute Assessment and plan: This could be infectious process or could be related to her leukemia. She will be followed closely for this problem. She is on antibiotics. Remains afebrile w/o any pulmonary symptoms. Subjective Subjective Patient reports: no new complaints, tolerating a regular diet and afebrile; denies nausea and vomiting Exam Const General: cooperative, comfortable and no acute distress Nutritional Appearance: overweight Orientation: alert and awake [facility] Head: normal to inspection Neck Neck: normal visual inspection and no lymphadenopathy Chest Chest: tenderness (at R port site. Mild erythema proximal to port.) Resp Effort & Inspection: normal respiratory effort and able to speak in complete sentences Cardio Rate: regular rate Rhythm: regular rhythm Heart Sounds: S1 normal and S2 normal GI Inspection: normal to inspection and non-distended Palpation: no hepatosplenomegaly, no masses and nontender Skin General skin exam: no rashes or lesions noted Extrem Right upper extremity: no edema Left upper extremity: no edema Objective Last Vital Signs Temp 36.7 C 08/27/21 02:56 Pulse 68 08/27/21 02:56 Resp 18 08/27/21 02:56 BP 114/52 L 08/27/21 02:56 Pulse Ox 95 08/27/21 02:56 Laboratory Results - last 24 hr 08/26/21 08/27/21 08/27/21 08:40 06:50 06:50 WBC 0.21 L* D RBC 3.12 L Hgb 9.0 L Hct 26.7 L D MCV 85.6 MCH 28.8 MCHC 33.7 RDW 14.3 Plt Count 18 L* MPV 11.1 H Immature Gran % 0.0 Neutrophils % 14.0 Band Neutrophils % 2 Lymphocytes % 78.0 Atypical Lymphs % 6 Monocytes % 0.0 Eosinophils % 0.0 Basophils % 0.0 Nucleated RBC % 0 Absolute Neutrophils 0.03 L* Absolute Lymphocytes 0.18 L Absolute Monocytes 0.00 L Absolute Eosinophils 0.00 Absolute Basophils 0.00 RBC Morphology See Below Microcytosis 1+ Sodium Potassium Chloride Carbon Dioxide Anion Gap BUN Creatinine Estimated GFR/1.73 m2 Glucose Calcium Total Bilirubin AST ALT Alkaline Phosphatase Total Protein Albumin Vancomycin Trough 19.5 Patient ABO/Rh A Positive Antibody Screen NEGATIVE Crossmatch See Detail 08/27/21 06:50 WBC RBC Hgb Hct MCV MCH MCHC RDW Plt Count MPV Immature Gran % Neutrophils % Band Neutrophils % Lymphocytes % Atypical Lymphs % Monocytes % Eosinophils % Basophils % Nucleated RBC % Absolute Neutrophils Absolute Lymphocytes Absolute Monocytes Absolute Eosinophils Absolute Basophils RBC Morphology Microcytosis Sodium 138 Potassium 4.9 Chloride 104 Carbon Dioxide 25.9 Anion Gap 8.1 BUN 22 H Creatinine 0.9 Estimated GFR/1.73 m2 >= 60.00 Glucose 84 Calcium 9.0 Total Bilirubin 0.9 AST 12 L ALT 17 Alkaline Phosphatase 89 Total Protein 6.9 Albumin 2.9 L Vancomycin Trough Patient ABO/Rh Antibody Screen Crossmatch
[2021-08-27] MEDS: Magnesium Oxide 400 MG TAB PO ×2 (09:27→20:05)
[2021-08-27] MEDS: Folic Acid 1 MG TAB PO (09:27)
[2021-08-27] MEDS: VANCOMYCIN/WATER (PEG) 1 GM/200 ML BAG IV (09:27)
[2021-08-27] MEDS: Metoprolol CR 25 MG TABCR 12.5 MG PO (09:28)
[2021-08-27] MEDS: Nystatin POWDER 60 GM JAR TP ×3 (09:40→20:06)
[2021-08-27] MEDS: Loperamide 2 MG CAP PO (10:32)
[2021-08-27] MEDS: CEFEPIME 2 GM in Normal Saline 100 ML IVPB ×2 (10:54→21:25)
--- NOTE | 2021-08-27 16:06 | CMPROGNOTE_ITS ---
- If Service Date Differs Date of service: 08/27/21 Time of Service: 17:53 Care Management Progress Note S/O: Polina was lying in bed when CM met with her. She was alert, oriented and easily engaged in conversation. Per MD, she will have platelets today, and continue to be closely monitored. CM continues to follow. A: 76 year old female admitted to [facility] 08/23/21 for neutropenic fever P: Per MD, Polina required platelets today. Polina will likely be discharged home with no new services when medically cleared by MD. Polina declines Services at this time. Anticipate Polina will be transported by [facility] (CM will arrange.) Polina will need to follow up with her community providers and discharge plan of care. CM continues to support.
[2021-08-27] MEDS: Normal Saline Flush 10 ML SYR IVP (20:06)
[2021-08-27] MEDS: Normal Saline 500 ML 50 ML IV (21:25)
[2021-08-28 03:45] VITALS: BP 126/58; PULSE 78; RESP 18; TEMP 36.6; O2SAT 95
[2021-08-28 07:16] LABS: HCT 25.2 % (36.0-46.0); MCH 29.6 pg (27.0-33.0); MCHC 34.5 % (32.0-36.0); MCV 85.7 fL (80-95); MPV 9.6 fL (8.0-11.0); Nucleated RBC 0 %; RBC 2.94 10^6/uL (3.93-5.22); RDW 14.2 % (11.7-14.6); RDW-SD 43.1 fL
[2021-08-28 07:51] LABS: WBC 0.16 10^3/uL (4.4-10.8)
[2021-08-28 07:52] LABS: HGB 8.7 g/dL (11.2-15.7)
[2021-08-28 07:54] LABS: Platelet Count 31 10^3/uL (130-400)
[2021-08-28 07:56] LABS: Diff Comment Diff Reviewed; Microcytosis 1+
[2021-08-28 08:32] VITALS: BP 111/44; PULSE 81; RESP 18; TEMP 36.9; O2SAT 96
[2021-08-28] MEDS: Metoprolol CR 25 MG TABCR 12.5 MG PO (08:34)
[2021-08-28] MEDS: Folic Acid 1 MG TAB PO (08:34)
[2021-08-28] MEDS: Magnesium Oxide 400 MG TAB PO ×2 (08:34→19:56)
[2021-08-28] MEDS: Omeprazole 20 MG CAPCR 40 MG PO (08:35)
[2021-08-28] MEDS: Normal Saline Flush 10 ML SYR IVP ×3 (08:36→22:39)
[2021-08-28] MEDS: Nystatin POWDER 60 GM JAR TP ×3 (08:36→19:57)
[2021-08-28] MEDS: CEFEPIME 2 GM in Normal Saline 100 ML IVPB ×2 (11:12→22:38)
[2021-08-28] MEDS: Loperamide 2 MG CAP PO (11:21)
--- NOTE | 2021-08-28 14:30 | W.NUTCONSULT ---
Date of service: 08/28/21 Time of Service: 14:30 Nutritional Consult ASSESSMENT: Weight remains stable and good PO intake (75-100% of meals) despite complaints today of food trays sitting outside her room for excessive amounts of time before she eats and it is often cold. Platelets given today and Polina expecting to be discharged this week. NUTRITIONAL DIAGNOSIS: Polina admitted to [facility] with neutropenic fever. INTERVENTION: We reviewed Neutropenic diet as best option until immune system improves and left her with literature on the topic for reinforcement. MONITORING AND EVALUATION: Will continue to monitor PO intake and nutrition needs Time Spent in Nutritional Counseling and Treatment: 30 minutes
--- NOTE | 2021-08-28 16:11 | W.PM.PROGNOT ---
Date of Service Date of service: 08/28/21 Time of Service: 16:11 Assessment and Plan Assessment and plan (1) Thrombocytopenia: Status: Chronic Assessment and plan: This problem be watched with daily blood counts. No active bleeding from any site noted. 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 The source of her fever may be the recent port placement on the right upper chest and/or a pulmonary infiltrate. She is on cefepime and vancomycin. Now afebrile since appx 2200 on 08/23. ANC today is 0. Discussed with oncology at [facility] [place]. Neulasta 5mcg/kg daily until ANC 550 or >. First dose yesterday. Repeat today. At time of d/c, home on Levaquin. Also with anemia related to chemotx. Hgb now 9: Transfused 1 unit RBCs and monitor Hgb. (3) Breast mass: Status: Acute Assessment and plan: This was noted on the recent CT scan. This will need follow-up with oncology. Previous h/o breast CA. (4) Lung infiltrate: Status: Acute Assessment and plan: This could be infectious process or could be related to her leukemia. She will be followed closely for this problem. She is on antibiotics. Remains afebrile w/o any pulmonary symptoms. Subjective Subjective Patient reports: no new complaints, tolerating a regular diet and afebrile; denies diarrhea, nausea, vomiting and shortness of breath Exam Const General: cooperative, comfortable and no acute distress Nutritional Appearance: overweight Orientation: alert and awake [facility] Head: normal to inspection Neck Neck: normal visual inspection and no lymphadenopathy Chest Chest: tenderness (at R port site. Mild erythema proximal to port.) Resp Effort & Inspection: normal respiratory effort and able to speak in complete sentences Cardio Rate: regular rate Rhythm: regular rhythm Heart Sounds: S1 normal and S2 normal GI Inspection: normal to inspection and non-distended Palpation: no hepatosplenomegaly, no masses and nontender Skin General skin exam: no rashes or lesions noted Extrem Right upper extremity: no edema Left upper extremity: no edema Objective Last Vital Signs Temp 36.9 C 08/28/21 08:32 Pulse 81 08/28/21 08:32 Resp 18 08/28/21 08:32 BP 111/44 L 08/28/21 08:32 Pulse Ox 96 08/28/21 08:32 Laboratory Results - last 24 hr 08/26/21 08/28/21 08:40 06:20 WBC 0.16 L* RBC 2.94 L Hgb 8.7 L Hct 25.2 L MCV 85.7 MCH 29.6 MCHC 34.5 RDW 14.2 Plt Count 31 L D MPV 9.6 Immature Gran % See Differential Neutrophils % Not Applicable Lymphocytes % Not Applicable Monocytes % Not Applicable Eosinophils % Not Applicable Basophils % Not Applicable Nucleated RBC % 0 Absolute Neutrophils Not Applicable Absolute Lymphocytes Not Applicable Absolute Monocytes Not Applicable Absolute Eosinophils Not Applicable Absolute Basophils Not Applicable RBC Morphology See Below Microcytosis 1+ Patient ABO/Rh A Positive Antibody Screen NEGATIVE Crossmatch See Detail
--- NOTE | 2021-08-28 16:52 | CMPROGNOTE_ITS ---
Care Management Progress Note S/O: Polina continues to be closely monitored and treated at this time. She had visitors in her room, per RN her son was upset that her food was cold; addressed by nutrition; Polina ate 100% of her lunch. No change to overall plan. Per MD, she will have platelets again today, and continue to be closely monitored. CM continues to follow. A: 76 year old female admitted to [facility] 08/23/21 for neutropenic fever P: Per MD, Polina required platelets again today. Polina will likely be discharged home where she resides with her family with no new services as she declines additional supports/services. Anticipate Polina will be transported by [facility], follow up with her community providers and discharge plan of care. CM continues to follow.
[2021-08-28 19:50] VITALS: BP 109/57; PULSE 85; RESP 18; TEMP 36.8; O2SAT 97
[2021-08-28] MEDS: Normal Saline 500 ML 50 ML IV (22:38)
[2021-08-28 22:48] VITALS: BP 112/46; PULSE 80; RESP 16; TEMP 37; O2SAT 96
[2021-08-29] MEDS: Acetaminophen 500 MG TAB 1000 MG PO ×3 (06:40→23:20)
[2021-08-29 07:15] LABS: HCT 24.5 % (36.0-46.0); HGB 8.3 g/dL (11.2-15.7); MCH 28.7 pg (27.0-33.0); MCHC 33.9 % (32.0-36.0); MCV 84.8 fL (80-95); MPV 10.5 fL (8.0-11.0); Nucleated RBC 0 %; RBC 2.89 10^6/uL (3.93-5.22); RDW 14.4 % (11.7-14.6); RDW-SD 43.4 fL
[2021-08-29 07:45] LABS: WBC 0.16 10^3/uL (4.4-10.8)
[2021-08-29 07:46] LABS: Platelet Count 26 10^3/uL (130-400)
[2021-08-29 07:52] LABS: Diff Comment Manual Differential; RBC Morphology Normal
[2021-08-29 08:33] VITALS: BP 109/36; PULSE 77; RESP 16; TEMP 36.8; O2SAT 96
--- NOTE | 2021-08-29 08:58 | PDOC.CMPRO ---
- If Service Date Differs Date of service: 08/29/21 Time of Service: 08:58 Care Management Progress Note S/O: CM met with Polina over the phone. Polina reports she is feeling better and has been up several times today walking around her room. She reports that her appetite is ok, she's not much of an eater but that is normal for her. She doesn't have any concerns at this time. A: 76 year old female admitted to [facility] 08/23/21 for neutropenic fever P: Per MD, Polina required platelets yesterday. Polina will likely be discharged home where she resides with her family with no new services as she declines additional supports/services. Anticipate Polina will be transported by [facility], follow up with her community providers and discharge plan of care. CM continues to follow.
[2021-08-29] MEDS: Metoprolol CR 25 MG TABCR 12.5 MG PO ×2 (09:11→19:59)
[2021-08-29] MEDS: Omeprazole 20 MG CAPCR 40 MG PO (09:11)
[2021-08-29] MEDS: Folic Acid 1 MG TAB PO (09:12)
[2021-08-29] MEDS: CEFEPIME 2 GM in Normal Saline 100 ML IVPB ×2 (09:12→22:53)
[2021-08-29] MEDS: Magnesium Oxide 400 MG TAB PO ×2 (09:12→19:59)
[2021-08-29] MEDS: Nystatin POWDER 60 GM JAR TP ×3 (09:14→19:58)
[2021-08-29] MEDS: Ondansetron 4 MG/2 ML VIAL IVP (11:45)
--- NOTE | 2021-08-29 16:11 | PGE_ITS ---
Date of Service Date of service: 08/29/21 Time of Service: 16:11 Assessment and Plan Assessment and plan (1) Thrombocytopenia: Status: Chronic Assessment and plan: This problem be watched with daily blood counts. No active bleeding from any site noted. 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 The source of her fever may be the recent port placement on the right upper chest and/or a pulmonary infiltrate. She is on cefepime and vancomycin. Now afebrile since appx 2200 on 08/23. ANC today is still 0.. Discussed with oncology at [facility]. Neulasta 5mcg/kg daily until ANC 550 or >. At time of d/c, home on Levaquin. Also with anemia related to chemotx. Hgb after trabsfusion of one unit of RBC's went to9: now 8.3. (3) Breast mass: Status: Acute Assessment and plan: This was noted on the recent CT scan. This will need follow-up with oncology. Previous h/o breast CA. (4) Lung infiltrate: Status: Acute Assessment and plan: This could be infectious process or could be related to her leukemia. She will be followed closely for this problem. She is on antibiotics. Remains afebrile w/o any pulmonary symptoms. Subjective Subjective Patient reports: tolerating a regular diet, nausea (This AM; resolved with dose of Zofran and ate well.) and afebrile; denies shortness of breath Exam Const General: cooperative, comfortable and no acute distress Nutritional Appearance: overweight Orientation: alert and awake [facility] Head: normal to inspection Neck Neck: normal visual inspection and no lymphadenopathy Chest Chest: tenderness (at R port site. Mild erythema proximal to port.) Resp Effort & Inspection: normal respiratory effort and able to speak in complete sentences Cardio Rate: regular rate Rhythm: regular rhythm Heart Sounds: S1 normal and S2 normal GI Inspection: normal to inspection and non-distended Palpation: no hepatosplenomegaly, no masses and nontender Skin General skin exam: no rashes or lesions noted Extrem Right upper extremity: no edema Left upper extremity: no edema Objective Last Vital Signs Temp 36.8 C 08/29/21 08:33 Pulse 77 08/29/21 08:33 Resp 16 08/29/21 08:33 BP 109/36 L 08/29/21 08:33 Pulse Ox 96 08/29/21 08:33 Laboratory Results - last 24 hr 08/26/21 08/29/21 08:40 06:36 WBC 0.16 L* RBC 2.89 L Hgb 8.3 L Hct 24.5 L MCV 84.8 MCH 28.7 MCHC 33.9 RDW 14.4 Plt Count 26 L* MPV 10.5 Immature Gran % See Differential Neutrophils % Lymphocytes % Monocytes % Eosinophils % Basophils % Nucleated RBC % 0 Absolute Neutrophils Not Applicable Absolute Lymphocytes Not Applicable Absolute Monocytes Not Applicable Absolute Eosinophils Not Applicable Absolute Basophils Not Applicable RBC Morphology Normal Crossmatch See Detail
[2021-08-29 19:52] VITALS: BP 124/53; PULSE 79; RESP 16; TEMP 36.4; O2SAT 97
[2021-08-29] MEDS: Normal Saline 500 ML 50 ML IV (22:55)
[2021-08-29] MEDS: Normal Saline Flush 10 ML SYR IVP ×2 (22:55→23:20)
[2021-08-29 23:25] VITALS: BP 121/48; PULSE 77; RESP 16; TEMP 36.7; O2SAT 96
[2021-08-30] VITALS (15 sets, daily range): BP systolic 115–147; BP diastolic 38–64; PULSE 72–85; RESP 15–18; TEMP 35.5–37.6; O2SAT 95–98
[2021-08-30] MEDS: Acetaminophen 500 MG TAB 1000 MG PO ×3 (05:05→20:09)
[2021-08-30 06:48] LABS: HCT 22.9 % (36.0-46.0); HGB 7.6 g/dL (11.2-15.7); MCHC 33.2 % (32.0-36.0); MCV 87.4 fL (80-95); MPV 11.3 fL (8.0-11.0); Nucleated RBC 0 %; RBC 2.62 10^6/uL (3.93-5.22); RDW 14.5 % (11.7-14.6); RDW-SD 44.8 fL
[2021-08-30 07:30] LABS: Platelet Count 18 10^3/uL (130-400); WBC 0.15 10^3/uL (4.4-10.8)
[2021-08-30 07:33] LABS: Diff Comment Diff Reviewed; Microcytosis 1+
[2021-08-30] MEDS: Omeprazole 20 MG CAPCR 40 MG PO (08:25)
[2021-08-30] MEDS: Metoprolol CR 25 MG TABCR 12.5 MG PO ×2 (08:25→20:09)
[2021-08-30] MEDS: Magnesium Oxide 400 MG TAB PO ×2 (08:25→20:10)
[2021-08-30] MEDS: Folic Acid 1 MG TAB PO (08:25)
--- NOTE | 2021-08-30 09:07 | PDOC.CMPRO ---
- If Service Date Differs Date of service: 08/30/21 Time of Service: 09:07 Care Management Progress Note S/O: Polina met with Palliative Care this morning and per provider she wants to remain a full code. Polina shares that she is currently undergoing chemotherapy for cancer and is motivated to get better because she is a big part of her granddaughter's life. She has helped raise her granddaughter who has a developmental delay since she was an . Per MD will continue to monitor her labs in order for her to be discharge ready. A: 76 year old female admitted to [facility] 08/23/21 for neutropenic fever P: Polina will likely be discharged home where she resides with her family with no new services as she declines additional supports/services. Anticipate Polina will be transported by [facility], follow up with her community providers and discharge plan of care. CM continues to follow.
[2021-08-30] MEDS: CEFEPIME 2 GM in Normal Saline 100 ML IVPB ×2 (09:47→23:08)
[2021-08-30] MEDS: Normal Saline Flush 10 ML SYR IVP ×3 (09:48→23:09)
[2021-08-30] MEDS: Loperamide 2 MG CAP PO ×2 (09:58→14:16)
--- NOTE | 2021-08-30 10:56 | W.PALLCONSUL ---
Date of service: 08/30/21 Time of Service: 10:56 History of Present Illness History of Present Illness Chief Complaint: Diarrhea Narrative: Polina is a 76 year old female with a past medical history significant for leukemia related to previous cancer treatment, diagnosed a few weeks ago, currently on chemotherapy. She is currently hospitalized for neutropenic fever, she continues to have pancytopenia, slowly improving. She also has a history of colon cancer with hemicolectomy in 2016. When she was diagnosed with colon cancer, she was also diagnosed with right breast cancer and went on to have lumpectomy and chemo and radiation. She also had a TAVR a couple of years ago. Her main goal is survival, for her granddaughter Kinsey. She is not sure where she wants to be at the end of her life. She does not think she wants to at home because she worries about how her granddaughter will deal with it. She helped raised her from infancy. Her granddaughter has a developmental delay. We talked about CODE STATUS, she wants to remain a FULL CODE at this point. Her about 1 year ago from dementia. She lives in [facility] with her son, Martínez, his girlfriend and her 20 year old granddaughter. They all help her a lot at home. Assessment and Plan Assessment and plan (1) Leukemia: Status: Chronic (2) Lung infiltrate: Status: Acute (3) Pancytopenia: Status: Acute (4) Dyspnea on exertion: Status: Acute (5) Adenocarcinoma of right breast: Status: Acute (6) S/p TAVR (transcatheter aortic valve replacement), bioprosthetic: Status: Acute (7) Cancer of ascending colon metastatic to intra-abdominal lymph node: Status: Acute (8) S/P right hemicolectomy: Status: Chronic (9) Palliative care patient: Status: Acute Assessment and plan: Polina is a 76 year old female with a past medical history significant for leukemia related to previous cancer treatment, diagnosed a few weeks ago, currently on chemotherapy. She is currently hospitalized for neutropenic fever, she continues to have pancytopenia, slowly improving. Palliative care was consulted to discuss goals of care and assist with advanced care planning. We discussed CODE status. She remains a FULL CODE at this point. We discussed this extensively. She will benefit from ongoing conversation about CODE status. We also talked about end of life topics. She does not think she wants to be home when she dies. She is worried about how dying in the home might negatively affect her developmentally delayed granddaughter, Kinsey. She is very close to her and raised her from infancy. Polina will benefit from continued follow up with Palliative in the setting of a potentially life limiting disease. Review of Systems Narrative: She denies pain. She has right-sided jaw discomfort, improving. She had right ear pain initially but it resolved. She denies SOB and wheezing, she coughs occasionally. She quit smoking 15 years ago. She has a new port to her right chest, she reports that it mildly sore, was more painful. She has a good appetite, she is eating and drinking and tolerating her diet. She has intermittent nausea, zofran helps. She has diarrhea, she has had 3 episodes of brown diarrhea today. She ambulates independently, but she cannot go very far, her legs give out. She has had a fall about a year ago, none since. She is feeling much better overall since she was admitted. [facility] Medical History (Updated 08/31/21 @ 08:34 by Ranjana Allred NP) Acute CHF prior to TAVR. none since then Adenocarcinoma of right breast s/p Lumpectomy Advance directive on file Anemia Aortic stenosis, severe s/p TAVR Cancer of ascending colon metastatic to intra-abdominal lymph node S/p Right hemicolectomy Diarrhea Factitious hyperthyroidism GERD (gastroesophageal reflux disease) H/O malignant neoplasm of breast H/O malignant neoplasm of colon Hypertension Hypertension Hypomagnesemia Incarcerated incisional hernia Leukemia Normocytic anemia Palliative care patient Severe aortic stenosis s/p TAVR UTI (urinary tract infection) Yeast dermatitis Surgical History H/O cardiac catheterization H/O colonoscopy H/O heart valve replacement with porcine valve History of esophagogastroduodenoscopy (EGD) History of ventral hernia repair 07/01/19 at [place] S/P cholecystectomy S/P recurrent ventral herniorrhaphy pt has [id number] polypropalene mesh implanted S/P right hemicolectomy S/p TAVR (transcatheter aortic valve replacement), bioprosthetic Status post closure of ileostomy Status post right breast lumpectomy Family History Mother Stroke Hypertension Son Diabetes type 2 Son Diabetes type 2 Father Cancer lung cancer - smoker Brother Cancer unknown type Social History Smoking/Tobacco Use Status: Former Tobacco Use Pack-years: 141 Tobacco: How many years used: 47 Smoking risk assessment performed?: Yes Alcohol Intake: former Drug use: Never Substance use type: does not use Current gender identity: female Do you feel safe at home: Yes Do you feel safe in your relationship?: Yes Exam Narrative Exam Narrative: General: very pleasant female, seen in her hospital room, sitting at the edge of the bed. She is awake, alert and oriented. HEENT: atraumatic, wears glasses, left eye wanders, mucous membranes moist. Neck: supple, no JVD. Chest: new port to right chest with erythema surrounding, nontender on palpation. Cardiovascular: heart sounds regular, nontachycardic. Respiratory: respirations appear even and unlabored, lung sounds are clear throughout. GI: +BS, soft, nontender on palpation, nondistended. Extremities: moves all 4 extremities freely, no edema. Results Last Vital Signs Temp 35.5 C L 08/30/21 07:29 Pulse 72 08/30/21 07:29 Resp 15 08/30/21 07:29 BP 118/38 L 08/30/21 07:29 Pulse Ox 96 08/30/21 07:29 Labs Result diagrams: 08/31/21 06:20 08/27/21 06:50 Labs: Laboratory Results - last 24 hr 08/30/21 08/30/21 06:30 10:01 WBC 0.15 L* RBC 2.62 L Hgb 7.6 L Hct 22.9 L MCV 87.4 MCH 29.0 MCHC 33.2 RDW 14.5 Plt Count 18 L* MPV 11.3 H Immature Gran % See Differential Neutrophils % Not Applicable Lymphocytes % Not Applicable Monocytes % Not Applicable Eosinophils % Not Applicable Basophils % Not Applicable Nucleated RBC % 0 Absolute Neutrophils Absolute Lymphocytes Not Applicable Absolute Monocytes Not Applicable Absolute Eosinophils Not Applicable Absolute Basophils Not Applicable RBC Morphology See Below Microcytosis 1+ Crossmatch See Detail
--- NOTE | 2021-08-30 15:11 | W.PM.PROGNOT ---
Date of Service Date of service: 08/30/21 Time of Service: 15:11 Assessment and Plan Assessment and plan (1) Thrombocytopenia: Status: Chronic Assessment and plan: No active bleeding from any site noted. Transfused a unit of platelets and count improved to 31; now down again to 18. Transfuse a unit of platelets. 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 The source of her fever may be the recent port placement on the right upper chest and/or a pulmonary infiltrate. She is on cefepime and vancomycin. Now afebrile since appx 2200 on 08/23. ANC today 30. Discussed with oncology at [facility]. Neulasta 5mcg/kg daily until ANC 550 or >. At time of d/c, home on Levaquin. Will stop Cefepime today and change to Levaquin daily. Also with anemia related to chemotx. Hgb after transfusion of one unit of RBC's went to 9 > 8.3. Now 7.6. Per oncology recommendations will transfuse another unit RBCs. (3) Breast mass: Status: Acute Assessment and plan: This was noted on the recent CT scan. This will need follow-up with oncology. Previous h/o breast CA. (4) Lung infiltrate: Status: Acute Assessment and plan: This could be infectious process or could be related to her leukemia. She will be followed closely for this problem. She is on antibiotics. Remains afebrile w/o any pulmonary symptoms. Subjective Subjective Patient reports: no new complaints, diarrhea, nausea (mild.) and afebrile; denies vomiting and shortness of breath Exam Const General: cooperative, comfortable and no acute distress Nutritional Appearance: overweight Orientation: alert and awake [facility] Head: normal to inspection Neck Neck: normal visual inspection and no lymphadenopathy Chest Chest: tenderness (at R port site. Mild erythema proximal to port.) Resp Effort & Inspection: normal respiratory effort and able to speak in complete sentences Cardio Rate: regular rate Rhythm: regular rhythm Heart Sounds: S1 normal and S2 normal GI Inspection: normal to inspection and non-distended Palpation: no hepatosplenomegaly, no masses and nontender Skin General skin exam: no rashes or lesions noted Extrem Right upper extremity: no edema Left upper extremity: no edema Objective Last Vital Signs Temp 37.3 C 08/30/21 14:54 Pulse 83 08/30/21 14:54 Resp 18 08/30/21 14:54 BP 122/64 08/30/21 14:54 Pulse Ox 96 08/30/21 14:54 Laboratory Results - last 24 hr 08/26/21 08/30/21 08/30/21 08:40 06:30 06:30 WBC 0.15 L* RBC 2.62 L Hgb 7.6 L Hct 22.9 L MCV 87.4 MCH 29.0 MCHC 33.2 RDW 14.5 Plt Count 18 L* MPV 11.3 H Immature Gran % See Differential Neutrophils % Not Applicable Lymphocytes % Not Applicable Monocytes % Not Applicable Eosinophils % Not Applicable Basophils % Not Applicable Nucleated RBC % 0 Absolute Neutrophils Absolute Lymphocytes Not Applicable Absolute Monocytes Not Applicable Absolute Eosinophils Not Applicable Absolute Basophils Not Applicable RBC Morphology See Below Microcytosis 1+ Patient ABO/Rh A Positive Antibody Screen NEGATIVE Crossmatch See Detail See Detail
[2021-08-30] MEDS: Normal Saline 500 ML 50 ML IV (23:21)
[2021-08-31 00:38] VITALS: BP 132/54; PULSE 83; RESP 16; TEMP 36.6; O2SAT 97
[2021-08-31] MEDS: Acetaminophen 500 MG TAB 1000 MG PO ×3 (03:44→19:53)
[2021-08-31] MEDS: Normal Saline Flush 10 ML SYR IVP ×3 (06:13→22:18)
[2021-08-31 07:15] LABS: HCT 25.5 % (36.0-46.0); HGB 8.7 g/dL (11.2-15.7); MCH 29.6 pg (27.0-33.0); MCHC 34.1 % (32.0-36.0); MCV 86.7 fL (80-95); MPV 10.3 fL (8.0-11.0); Nucleated RBC 0 %; RBC 2.94 10^6/uL (3.93-5.22); RDW 14.3 % (11.7-14.6); RDW-SD 43.6 fL
[2021-08-31 07:30] VITALS: BP 117/47; PULSE 70; RESP 16; TEMP 36.8; O2SAT 94
[2021-08-31 07:32] LABS: Platelet Count 28 10^3/uL (130-400); WBC 0.26 10^3/uL (4.4-10.8)
[2021-08-31 08:14] LABS: Absolute Lymphocyte Count 0.13 10^3/uL (1.2-3.4); Absolute Monocyte Count 0.01 10^3/uL (0.1-0.8); Absolute Neutrophil Count 0.12 10^3/uL (1.2-6.7); Atypical Lymphocytes % 2; Diff Comment Manual Differential; RBC Morphology Normal
[2021-08-31] MEDS: Omeprazole 20 MG CAPCR 40 MG PO (08:34)
[2021-08-31] MEDS: Magnesium Oxide 400 MG TAB PO ×2 (08:34→19:54)
[2021-08-31] MEDS: Metoprolol CR 25 MG TABCR 12.5 MG PO ×2 (08:34→19:53)
[2021-08-31] MEDS: Folic Acid 1 MG TAB PO (08:35)
--- NOTE | 2021-08-31 08:44 | CMPROGNOTE_ITS ---
- If Service Date Differs Date of service: 08/31/21 Time of Service: 08:44 Care Management Progress Note S/O: CM met with Polina over the phone. Polina reports that she is feeling much better and is hopeful to be discharged home this weekend. Per MD her ANC needs to be greater than 500 before discharge can be considered. Polina has been able to ambulate in her room and is staying busy watching TV, doing word searches and talking with her son over the phone. A: 76 year old female admitted to [facility] 08/23/21 for neutropenic fever P: Polina will likely be discharged home where she resides with her family with no new services (as she declines additional supports/services.) Anticipate Polina will be transported by [facility], follow up with her community providers and discharge plan of care. CM continues to follow
[2021-08-31] MEDS: CEFEPIME 2 GM in Normal Saline 100 ML IVPB ×2 (10:46→22:17)
[2021-08-31] MEDS: Loperamide 2 MG CAP PO (10:46)
[2021-08-31 12:26] VITALS: PULSE 75; RESP 16; TEMP 37.1; O2SAT 97
[2021-08-31 13:28] LABS: C Diff PCR Negative (Negative)
--- NOTE | 2021-08-31 14:59 | W.PM.PROGNOT ---
Date of Service Date of service: 08/31/21 Time of Service: 14:59 Assessment and Plan Assessment and plan (1) Thrombocytopenia: Status: Chronic Assessment and plan: No active bleeding from any site noted. Transfused a unit of platelets and count improved to 31; now down again to 18. Transfused a unit of platelets on 08/30 and platelets improved to 28. Oncology recommends transfusing a unit of platelets when under 20. 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 The source of her fever may be the recent port placement on the right upper chest and/or a pulmonary infiltrate. She is on cefepime. Now afebrile since appx 2200 on 08/23. ANC improving; now 120. Discussed with oncology at [facility]. Neulasta 5mcg/kg daily until ANC 550 or >. At time of d/c, home on Levaquin. Will stop Cefepime today and change to Levaquin daily. Also with anemia related to chemotx. Hgb after transfusion of one unit of RBC's went to 9 > 8.3, then decreased to 7.6. Transfused another unit of RBCs and Hgb improved to 8.7 Per oncology recommendations transfuse 1 unit RBCs for Hgb between 7 - 8, 2 units when under 7. (3) Breast mass: Status: Acute Assessment and plan: This was noted on the recent CT scan. This will need follow-up with oncology. Previous h/o breast CA. (4) Lung infiltrate: Status: Acute Assessment and plan: This could be infectious process or could be related to her leukemia. She will be followed closely for this problem. She is on antibiotics. Remains afebrile w/o any pulmonary symptoms. Subjective Subjective Patient reports: no new complaints, tolerating a regular diet and afebrile; denies nausea, vomiting and shortness of breath Exam Const General: cooperative, comfortable and no acute distress Nutritional Appearance: overweight Orientation: alert and awake [facility] Head: normal to inspection Neck Neck: normal visual inspection and no lymphadenopathy Chest Chest: tenderness (at R port site. Mild erythema proximal to port.) Resp Effort & Inspection: normal respiratory effort and able to speak in complete sentences Cardio Rate: regular rate Rhythm: regular rhythm Heart Sounds: S1 normal and S2 normal GI Inspection: normal to inspection and non-distended Palpation: no hepatosplenomegaly, no masses and nontender Skin General skin exam: no rashes or lesions noted Extrem Right upper extremity: no edema Left upper extremity: no edema Objective Last Vital Signs Temp 37.1 C 08/31/21 12:26 Pulse 75 08/31/21 12:26 Resp 16 08/31/21 12:26 BP 117/47 L 08/31/21 07:30 Pulse Ox 97 08/31/21 12:26 Laboratory Results - last 24 hr 08/30/21 08/31/21 08/31/21 06:30 06:20 09:50 WBC 0.26 L* D RBC 2.94 L Hgb 8.7 L Hct 25.5 L MCV 86.7 MCH 29.6 MCHC 34.1 RDW 14.3 Plt Count 28 L* D MPV 10.3 Immature Gran % 0.0 Neutrophils % 48.0 Lymphocytes % 48.0 Atypical Lymphs % 2 Monocytes % 2.0 Eosinophils % 0.0 Basophils % 0.0 Nucleated RBC % 0 Absolute Neutrophils 0.12 L* Absolute Lymphocytes 0.13 L Absolute Monocytes 0.01 L Absolute Eosinophils 0.00 Absolute Basophils 0.00 RBC Morphology Normal Stl C.difficile Tox PCR Negative Patient ABO/Rh A Positive Antibody Screen NEGATIVE Crossmatch See Detail
[2021-08-31 15:21] VITALS: BP 123/48; PULSE 74; RESP 18; TEMP 37.1; O2SAT 93
[2021-08-31 20:04] VITALS: BP 121/49; PULSE 77; RESP 16; TEMP 36.5; O2SAT 95
[2021-09-01 03:37] VITALS: BP 128/52; PULSE 78; RESP 16; TEMP 37.1; O2SAT 95
[2021-09-01] MEDS: Loperamide 2 MG CAP PO ×2 (07:44→12:02)
[2021-09-01] MEDS: Magnesium Oxide 400 MG TAB PO ×2 (07:44→19:31)
[2021-09-01 07:45] VITALS: BP 124/68; PULSE 85; RESP 16; TEMP 36.8; O2SAT 96
[2021-09-01] MEDS: Acetaminophen 500 MG TAB 1000 MG PO ×3 (07:45→19:30)
[2021-09-01] MEDS: Folic Acid 1 MG TAB PO (07:45)
[2021-09-01] MEDS: Metoprolol CR 25 MG TABCR 12.5 MG PO ×2 (07:45→19:31)
[2021-09-01] MEDS: Omeprazole 20 MG CAPCR 40 MG PO (07:45)
[2021-09-01 09:02] LABS: HCT 28.4 % (36.0-46.0); HGB 9.5 g/dL (11.2-15.7); MCH 29.1 pg (27.0-33.0); MCHC 33.5 % (32.0-36.0); MCV 86.9 fL (80-95); MPV 11.7 fL (8.0-11.0); Nucleated RBC 0 %; RBC 3.27 10^6/uL (3.93-5.22); RDW 14.4 % (11.7-14.6); RDW-SD 44.7 fL
[2021-09-01 09:12] LABS: Anion Gap 7.7 mmol/L (3-11); BUN 26 mg/dL (7-18); CO2 24.3 mmol/L (21.0-32.0); CREATININE 0.9 mg/dL (0.55-1.02); Calcium 8.8 mg/dL (8.5-10.1); Chloride 105 mmol/L (98-107); Glucose 112 mg/dL (74-106); Magnesium 1.7 mg/dL (1.8-2.4); Potassium 4.3 mmol/L (3.5-5.1); Sodium 137 mmol/L (136-145)
[2021-09-01 09:32] LABS: Platelet Count 22 10^3/uL (130-400)
[2021-09-01 09:35] LABS: WBC 0.69 10^3/uL (4.4-10.8)
[2021-09-01 09:36] LABS: Absolute Lymphocyte Count 0.15 10^3/uL (1.2-3.4); Absolute Monocyte Count 0.01 10^3/uL (0.1-0.8); Absolute Neutrophil Count 0.52 10^3/uL (1.2-6.7); Bands % 4
[2021-09-01 09:37] LABS: Diff Comment Manual Differential; RBC Morphology Normal
[2021-09-01] MEDS: Nystatin 500000 UNITS/5 ML SUSP 5ML CUP PO ×4 (10:06→21:46)
[2021-09-01] MEDS: CEFEPIME 2 GM in Normal Saline 100 ML IVPB (10:06)
[2021-09-01] MEDS: MAGNESIUM SULFATE 2 GM/50 ML BAG IVPB (10:50)
[2021-09-01 11:09] VITALS: BP 113/48; PULSE 73; RESP 16; TEMP 37.1; O2SAT 96
--- NOTE | 2021-09-01 14:21 | DI.CT_ITS ---
Exam(s) CT NECK W EXAM: CT NECK W CLINICAL HISTORY: new odynophagia/dysphagia, neutropenic pt. TECHNIQUE: Imaging Protocol: Axial computed tomography images with coronal and sagittal reformatted images were created and reviewed. CONTRAST MATERIAL: Intravenous: Omnipaque 350 Contrast volume:100 mL COMPARISON: CT CT HEAD CERVICAL SPINE WO from 10/07/[address] CHEST W from 08/24/[address] CHEST W from 08/24/2021 FINDINGS: Orbits and orbital soft tissues: Within normal limits. Visualized paranasal sinuses: Within normal limits. Nasopharynx: Within normal limits. Oropharynx: Within normal limits. Hypopharynx: Just beneath the hyoid bone in the midline there is a 2.4 x 2.1 cm fluid attenuation ma ss present. It lies superior to the vocal cords and just below the level of the epiglottis. Larynx: Within normal limits. Retropharyngeal space: Within normal limits. Parotids/submandibular: Within normal limits. There is a 1.5 x 1.6 cm fat attenuation lesion in the left parotid gland most consistent with lipoma. Thyroid gland: There is a 4 mm hypodensity in the right lobe of the thyroid gland. No associated ab normalities are identified no follow-up is recommended. Lymphadenopathy: There is scattered lymph nodes seen along the level one to level three all measurin g less than 8 mm in short axis diameter which are physiologic in nature. Trachea: Within normal limits. Lung apices: There is persistent right upper lobe infiltrate. Bones: Within normal limits. Carotids/Jugular: Within normal limits. Soft tissues: Within normal limits. IMPRESSION: 1. 2.4 x 2.1 cm fluid attenuation mass in the infrahyoid soft tissues. Differential considerations i nclude, but are not limited to, laryngeal cyst, thyroglossal duct cyst or dermoid. 2. Stable right upper lobe infiltrate. RADIATION DOSE DELIVERED: 332.41mGy.cm Total DLP 332.41mGy.cm Total DLP DATA REPOSITORY: All CT scans at this facility are submitted to the National Radiology Data Registry (NRDR) Dose Index Registry (DIR) with the [employer] ([employer]). RADIATION OPTIMIZATION: All CT scans at this facility use at least one of these dose optimization te chniques: automated exposure control; mA and/or kV adjustment per patient size (includes targeted exa ms where dose is matched to clinical indication); or iterative reconstruction.
[2021-09-01] MEDS: Omnipaque 350 MG/ML 100 ML BTL IJ (14:22)
[2021-09-01] MEDS: Normal Saline - Diluent 50 ML VIAL IV (14:23)
[2021-09-01] MEDS: Normal Saline Flush 10 ML SYR IVP (14:24)
--- NOTE | 2021-09-01 15:17 | DI.VRAD_ITS ---
Addendum created by Epi Ibarra DO on 09/01/2021 3:18:28 PM EDT: IMPRESSION: 1. Midline cystic mass in the suprahyoid pre epiglottic fat. The differential consideration might include laryngeal cyst or thyroglossal cyst versus dermoid. 2. Mild ground-glass densities in the right upper lung suspicious of mild infiltrate. Initial report created on 09/01/2021 3:17:15 PM EDT: PROCEDURE INFORMATION: Exam: CT Neck With Contrast Exam date and time: 09/01/2021 2:02 PM Age: 76 years old Clinical indication: Other: New odynophagia/dysphagia, neutropenic PT; Prior surgery; Surgery date: <1 month; Surgery type: Power port TECHNIQUE: Imaging protocol: Computed tomography images of the neck with contrast. Contrast material: OMNIPAQUE 350; Contrast volume: 100 ml; Contrast route: INTRAVENOUS (IV); COMPARISON: CT HEAD CERVICAL SPINE WO 10/07/2020 5:08 PM FINDINGS: Nasopharynx: Unremarkable. Oropharynx: No significant tonsillar enlargement. Hypopharynx: Unremarkable. Larynx: There is a 2.5 x 2.2 cm axial x 2.0 cm CC midline cystic mass in the pre epiglottic fat inferior to the hyoid bone deep to the strap muscles. Retropharyngeal space: Unremarkable. Submandibular/Parotid glands: Normal. Glands are normal in size. Thyroid: There is a 3 mm nodule in the anterior right lobe of the thyroid gland. Lymph nodes: Unremarkable. No lymphadenopathy. Trachea: Visualized trachea is unremarkable. Lungs: There is pleuroparenchymal apical thickening. There is mild ground-glass densities in the right upper lung. Bones/joints: . No acute fracture. Vasculature: There is right internal jugular venous approach leno catheter, tip is beyond the field of view. Soft tissues: No significant soft tissue swelling. IMPRESSION: Midline cystic mass in the suprahyoid pre epiglottic fat. The differential consideration might include laryngeal cyst or thyroglossal cyst versus dermoid. Dictated and Authenticated by: Epi Ibarra MD. Ordering:JAMIE Myles MD
[2021-09-01 15:23] VITALS: BP 110/51; PULSE 73; RESP 16; TEMP 36.5; O2SAT 95
--- NOTE | 2021-09-01 15:54 | PGE_ITS ---
Date of Service Date of service: 09/01/21 Time of Service: 12:00 Assessment and Plan Assessment and plan (1) Odynophagia: Status: Acute Assessment and plan: CT neck w/ a midline cystic mass in the preepiglottic fat. I am asking ENT at [facility] to review this given the patient's extensive h/o malignancy as well as concern for possible infection. Continue cefepime for now, unless told to change abx per ENT. I have downgraded the diet to full liquid. Rx magic mouth wash. (2) Pancytopenia: Status: Acute Assessment and plan: Multifactorial: due to AML/MDS as well as due to chemo. WBC/ANC is better with filgrastim - 520 today. D/c filgrastim. Afebrile since 08/23/2021. H/H 9.5 - s/p xfusion of a total of 2 units of pRBCs o this admission. Continue to monitor. Plts of 22 - no active bleeding - no indication for transfusion at this time. Transfusion if plts<20. S/p 2 units of plts on this admission. Start acyclovir/fluconazole ppx that the patient was supposed to be on as outpatient. 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 On chemo via [facility]. As above. (4) Breast mass: Status: Acute Assessment and plan: Per CT on admission. This will need follow-up with oncology. Previous h/o breast CA. (5) Lung infiltrate: Status: Acute Assessment and plan: This could be infectious process or could be related to her leukemia. The patient is asymptomatic from the stand point of respiratory status. (6) Diarrhea: Status: Acute Assessment and plan: C. diff ruled out. Continue prn imodium. Obtain other stool studies. Qualifiers: Diarrhea type: unspecified type Qualified Code(s): R19.7 - Diarrhea, unspecified (7) DVT prophylaxis: Status: Acute Assessment and plan: Both chemical and mechanical dvt ppx are contr aindicated given thrombocytopenia (8) Discharge planning issues: Status: Acute Assessment and plan: Full code Continues to require hospitalization. Disposition pending ENT recommendations. Subjective Subjective Interval history since last seen: C/o R jaw/neck/throat pain radiating to the ear x 3 days, now causing her to have pain on swallowing solids. She states she can't eat. Doing ok with liquids. denies dizziness, chest pain, shortness of breath, nausea. Other than the pain on swallowing, feels ready to go home today. Exam Narrative Exam Narrative: General: Pleasant elderly female sitting at the side of bed trying to eat lunch HEENT: EOMI, MMM, no obvious oral lesions Heart: RRR, no m/r/g Lungs: CTAB Abdomen: soft, nontender, nondistended Extremities: no edema BLE's Objective Last Vital Signs Temp 36.5 C 09/01/21 15:23 Pulse 73 09/01/21 15:23 Resp 16 09/01/21 15:23 BP 110/51 L 09/01/21 15:23 Pulse Ox 95 09/01/21 15:23 Laboratory Results - last 24 hr 09/01/21 09/01/21 08:40 08:40 WBC 0.69 L* D RBC 3.27 L Hgb 9.5 L Hct 28.4 L MCV 86.9 MCH 29.1 MCHC 33.5 RDW 14.4 Plt Count 22 L* MPV 11.7 H Immature Gran % 0.0 Neutrophils % 72.0 Band Neutrophils % 4 Lymphocytes % 22.0 Monocytes % 2.0 Eosinophils % 0.0 Basophils % 0.0 Nucleated RBC % 0 Absolute Neutrophils 0.52 L Absolute Lymphocytes 0.15 L Absolute Monocytes 0.01 L Absolute Eosinophils 0.00 Absolute Basophils 0.00 RBC Morphology Normal Sodium 137 Potassium 4.3 Chloride 105 Carbon Dioxide 24.3 Anion Gap 7.7 BUN 26 H Creatinine 0.9 Estimated GFR/1.73 m2 >= 60.00 Glucose 112 H Calcium 8.8 Magnesium 1.7 L Objective Narrative Objective Narrative: Ct neck with contrast: Midline cystic mass in the suprahyoid pre epiglottic fat. The differential consideration might include laryngeal cyst or thyroglossal cyst versus dermoid.
[2021-09-01] MEDS: Fluconazole 100 MG TAB 200 MG PO (16:30)
[2021-09-01] MEDS: PIPERACILLIN/TAZO 3.375 GM in Normal Saline 50 ML IVPB (18:23)
[2021-09-01] MEDS: Acyclovir 400 MG TAB PO (19:31)
[2021-09-02] VITALS (10 sets, daily range): BP systolic 100–132; BP diastolic 40–59; PULSE 77–83; RESP 16–18; TEMP 36.2–37.3; O2SAT 94–97
[2021-09-02] MEDS: PIPERACILLIN/TAZO 3.375 GM in Normal Saline 50 ML IVPB ×2 (00:30→06:25)
[2021-09-02] MEDS: Normal Saline Flush 10 ML SYR IVP ×5 (00:31→23:56)
[2021-09-02] MEDS: Normal Saline 500 ML 50 ML IV (00:31)
[2021-09-02] MEDS: Nystatin 500000 UNITS/5 ML SUSP 5ML CUP PO ×4 (06:25→21:10)
[2021-09-02 07:05] LABS: HCT 25.5 % (36.0-46.0); HGB 8.6 g/dL (11.2-15.7); MCH 29.3 pg (27.0-33.0); MCHC 33.7 % (32.0-36.0); MCV 86.7 fL (80-95); MPV 10.8 fL (8.0-11.0); Nucleated RBC 0 %; RBC 2.94 10^6/uL (3.93-5.22); RDW 14.8 % (11.7-14.6); RDW-SD 45.8 fL
[2021-09-02 07:13] LABS: Platelet Count 17 10^3/uL (130-400); WBC 1.26 10^3/uL (4.4-10.8)
[2021-09-02 07:19] LABS: Anion Gap 5.2 mmol/L (3-11); BUN 23 mg/dL (7-18); CO2 25.8 mmol/L (21.0-32.0); CREATININE 1.1 mg/dL (0.55-1.02); Calcium 8.7 mg/dL (8.5-10.1); Chloride 107 mmol/L (98-107); Estimated GFR 48.42 (mL/min/1.73m2); Glucose 80 mg/dL (74-106); Magnesium 2.4 mg/dL (1.8-2.4); Sodium 138 mmol/L (136-145)
[2021-09-02 07:33] LABS: Absolute Monocyte Count 0.13 10^3/uL (0.1-0.8); Absolute Neutrophil Count 0.88 10^3/uL (1.2-6.7); Bands % 14; Diff Comment Manual Differential; Metamyelocytes % 4; RBC Morphology Normal
[2021-09-02] MEDS: Fluconazole 100 MG TAB 200 MG PO (08:30)
[2021-09-02] MEDS: Omeprazole 20 MG CAPCR 40 MG PO (08:30)
[2021-09-02] MEDS: Acyclovir 400 MG TAB PO ×2 (08:30→19:56)
[2021-09-02] MEDS: Folic Acid 1 MG TAB PO (08:30)
[2021-09-02] MEDS: Metoprolol CR 25 MG TABCR 12.5 MG PO (08:31)
[2021-09-02] MEDS: Magnesium Oxide 400 MG TAB PO ×2 (08:31→19:55)
[2021-09-02] MEDS: Loperamide 2 MG CAP PO (10:07)
[2021-09-02] MEDS: Ondansetron 4 MG/2 ML VIAL IVP ×2 (12:04→19:55)
--- NOTE | 2021-09-02 15:55 | PGE_ITS ---
Date of Service Date of service: 09/02/21 Time of Service: 15:56 Assessment and Plan Assessment and plan (1) Odynophagia: Status: Acute Assessment and plan: CT neck w/ a midline cystic mass in the pre- epiglottic fat. unlikely to be infected, based on appearance of CT, per [facility], but abx were recommended to be changed to zosyn. Improving. Upgrade diet. Will need outpatient follow up with ENT (2) Pancytopenia: Status: Acute Assessment and plan: Multifactorial: due to AML/MDS as well as due to chemo. WBC/ANC is better, Afebrile since 08/23/2021. H/H 8.6/25.5, s/p xfusion of a total of 2 units of pRBCs on this admission. Continue to monitor. Plts of 17 - no active bleeding -Awaiting plt transfusion today. S/p 2 units of plts on this admission. Continue acyclovir/fluconazole ppx that the patient was supposed to be on as outpatient. 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 On chemo via [facility]. As above. (4) Breast mass: Status: Acute Assessment and plan: Per CT on admission. This will need follow-up with oncology. Previous h/o breast CA. (5) Lung infiltrate: Status: Acute Assessment and plan: This could be infectious process or could be related to her leukemia. The patient is asymptomatic from the stand point of respiratory status. (6) Diarrhea: Status: Acute Assessment and plan: C. diff ruled out. Continue prn imodium. Obtain other stool studies. Qualifiers: Diarrhea type: unspecified type Qualified Code(s): R19.7 - Diarrhea, unspecified (7) DVT prophylaxis: Status: Acute Assessment and plan: Both chemical and mechanical dvt ppx are contraindicated given thrombocytopenia (8) Discharge planning issues: Status: Acute Assessment and plan: Full code Continues to require hospitalization. Anticipate discharge home tomorrow Subjective Subjective Interval history since last seen: Awaiting platelet transfusion. Swallowing feels a lot better today and no neck pain. Denies dizziness, chest pressure, shortness of breath. Got a little nauseated earlier but feels much better now. Interested in trying solid food. Case was discussed with [facility] yesterday: they did not feel that the cystic mass abnormality was infected based on its appearance, but did recommend expanding antibiotics to something like unasyn or zosyn (we picked zosyn due to pseudomonal coverage). Exam Narrative Exam Narrative: General: Pleasant elderly female, A&Ox3, sitting up in bed HEENT: EOMI, MMM Heart: RRR, no m/r/g Lungs: CTAB Abdomen: soft, nontender, nondistended Extremities: no edema BLE's Objective Last Vital Signs Temp 36.2 C L 09/02/21 08:28 Pulse 77 09/02/21 08:28 Resp 16 09/02/21 08:28 BP 132/59 L 09/02/21 08:28 Pulse Ox 97 09/02/21 08:28 Laboratory Results - last 24 hr 09/02/21 09/02/21 09/02/21 03:34 06:35 06:35 WBC 1.26 L* D RBC 2.94 L Hgb 8.6 L Hct 25.5 L MCV 86.7 MCH 29.3 MCHC 33.7 RDW 14.8 H Plt Count 17 L* MPV 10.8 Immature Gran % 0.0 Neutrophils % 56.0 Band Neutrophils % 14 Lymphocytes % 16.0 Monocytes % 10.0 Eosinophils % 0.0 Basophils % 0.0 Metamyelocytes % 4 Nucleated RBC % 0 Absolute Neutrophils 0.88 L Absolute Lymphocytes 0.20 L Absolute Monocytes 0.13 Absolute Eosinophils 0.00 Absolute Basophils 0.00 RBC Morphology Normal Sodium 138 Potassium 5.0 Chloride 107 Carbon Dioxide 25.8 Anion Gap 5.2 BUN 23 H Creatinine 1.1 H Estimated GFR/1.73 m2 48.42 Glucose 80 Calcium 8.7 Magnesium 2.4 Stool Campylobacter PCR Cancelled Stool Salmonella PCR Cancelled Stool Shigella PCR Cancelled Shiga Toxin (PCR) Cancelled Patient ABO/Rh 09/02/21 08:51 WBC RBC Hgb Hct MCV MCH MCHC RDW Plt Count MPV Immature Gran % Neutrophils % Band Neutrophils % Lymphocytes % Monocytes % Eosinophils % Basophils % Metamyelocytes % Nucleated RBC % Absolute Neutrophils Absolute Lymphocytes Absolute Monocytes Absolute Eosinophils Absolute Basophils RBC Morphology Sodium Potassium Chloride Carbon Dioxide Anion Gap BUN Creatinine Estimated GFR/1.73 m2 Glucose Calcium Magnesium Stool Campylobacter PCR Stool Salmonella PCR Stool Shigella PCR Shiga Toxin (PCR) Patient ABO/Rh Cancelled
[2021-09-02] MEDS: diphenhydrAMINE 25 MG CAP PO (16:40)
[2021-09-02] MEDS: Acetaminophen 325 MG TAB 650 MG PO (16:40)
[2021-09-03] MEDS: Loperamide 2 MG CAP PO ×2 (04:01→09:47)
[2021-09-03] MEDS: Normal Saline Flush 10 ML SYR IVP ×3 (05:52→15:42)
[2021-09-03] MEDS: Nystatin 500000 UNITS/5 ML SUSP 5ML CUP PO ×3 (05:52→14:26)
[2021-09-03 06:57] LABS: HCT 24.4 % (36.0-46.0); HGB 8.1 g/dL (11.2-15.7); MCH 28.9 pg (27.0-33.0); MCHC 33.2 % (32.0-36.0); MCV 87.1 fL (80-95); MPV 10.6 fL (8.0-11.0); Nucleated RBC 0 %; Platelet Count 47 10^3/uL (130-400); RDW 14.8 % (11.7-14.6); RDW-SD 46.9 fL
[2021-09-03 07:04] LABS: WBC 1.59 10^3/uL (4.4-10.8)
[2021-09-03 07:08] LABS: Anion Gap 4.7 mmol/L (3-11); BUN 23 mg/dL (7-18); CO2 29.3 mmol/L (21.0-32.0); CREATININE 1.2 mg/dL (0.55-1.02); Calcium 8.6 mg/dL (8.5-10.1); Chloride 105 mmol/L (98-107); Glucose 86 mg/dL (74-106); Potassium 4.8 mmol/L (3.5-5.1); Sodium 139 mmol/L (136-145)
[2021-09-03 07:33] LABS: Absolute Basophil Count 0.02 10^3/uL (0.0-0.2); Absolute Lymphocyte Count 0.29 10^3/uL (1.2-3.4); Absolute Monocyte Count 0.02 10^3/uL (0.1-0.8); Absolute Neutrophil Count 1.27 10^3/uL (1.2-6.7); Bands % 4; Diff Comment Manual Differential; RBC Morphology Normal
[2021-09-03] MEDS: Metoprolol CR 25 MG TABCR 12.5 MG PO (07:49)
[2021-09-03] MEDS: Fluconazole 100 MG TAB 200 MG PO (07:49)
[2021-09-03] MEDS: Folic Acid 1 MG TAB PO (07:49)
[2021-09-03] MEDS: Magnesium Oxide 400 MG TAB PO (07:49)
[2021-09-03] MEDS: Omeprazole 20 MG CAPCR 40 MG PO (07:49)
[2021-09-03] MEDS: Acyclovir 400 MG TAB PO (07:51)
--- NOTE | 2021-09-03 14:05 | DSE_ITS ---
Date of service: 09/03/21 Time of Service: 14:05 DS: Diagnosis Discharge Diagnosis (1) Neutropenic fever: Status: Resolved (2) Pancytopenia: Status: Acute (3) Lung infiltrate: Status: Acute Asessment and Plan: PNA vs due to leukemia (4) AML (acute myeloblastic leukemia): Status: Acute (5) Odynophagia: Status: Acute (6) Laryngeal cyst: Status: Suspected (7) Diarrhea: Status: Acute (8) Breast mass: Status: Chronic Asessment and Plan: Stable R breast post-radiation/resection changes as compared to prior mammograms (9) COVID-19 ruled out by laboratory testing: Status: Ruled-out Discharge Plan Disposition Patient Disposition: HOME Condition: Improving Discharge Details Reason For Visit: Neutropenic Fever,HX Leukemia,Possible Port Site Admit Date/Time: 08/23/21 23:45 Admit Provider: Bernard Joiner Attending Provider: Bernard Joiner [facility] Hospital Course: Ms Alvarado is a 76 year old female with 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 The patient did not have evidence of active bleeding. As far as source of her neutropenic fever, she did have a non-specific ground-glass infiltrate on her CT, possibly c/w a pneumonia. We ruled out bacteremia as there was a concern about a possibly infected infusaport placed less than 48 hrs earlier - it is not thought to be infected as blood cultures through the port as well as peripherally were negative, though there is some erythema over the infusaport area. The patient received broad spectrum antibiotics (vancomycin/cefepime). Vancomycin was d/c'ed once nasal MRSA swab came back negative. The patient has required transfusions of 2 units of pRBCS and 4 units of platelets on this admission in addition to filgrastim until her ANC improved to >500. On the day of discharge, her WBC is 1.59 (ANC of 1,270), H/H 8.1/24.4, and plts are 47. The patient did report 3 days of dysphagia and odynophagia, reporting pain on the right side of the throat. CT soft tissue neck was obtained revealing a midline cystic mass - 2.4 x 2.1 cm - in the infrahyoid soft tissues: laryngeal cyst vs thyroglossal ductal cyst vs dermoid. The images were reviewed with [facility], who felt that the patient's findings did not correspond to location of her symptoms and that this was not an infected cyst. She will need outpatient follow up with [facility], and referral is being sent. Continuation of abx was recommended - the patient is being discharged home with levofloxacin. It is not clear what specifically was causing the patient's symptoms. She did not have signs of oropharyngeal thrush, but certainly it was possible that this was happening lower in the pharynx, for which the patient was initiated on fluconazole. Acyclovir prophylaxis was also initiated. The patient is medically stable for discharge home today. Care for patient as well as completion of her discharge summary on day of discharge took 45 minutes. Home Meds and New Rx's Prescriptions: New fluconazole 100 mg Tablet 200 mg PO DAILY Qty: 30 RF: 0 acyclovir 400 mg Tablet 400 mg PO BID Qty: 60 RF: 0 Sore Throat (phenol) 1.4 % Aerosol,[place] 180 ml mucous membrane QID PRN PRNQty: 0 RF: 0 magnesium oxide 400 mg (241.3 mg magnesium) Tablet 400 mg PO BID Qty: 30 RF: 0 nystatin 100,000 unit/gram Powder 1 applic topical TID Qty: 60 RF: 0 levofloxacin 750 mg tablet 750 mg PO Q48H Qty: 14 RF: 0 ondansetron 4 mg film 4 mg PO Q8H PRN (Reason: nausea and vomiting) Qty: 12 RF: 0 Continued acetaminophen [Tylenol Extra Strength] 500 mg tablet 1,000 mg PO TID PRNRF: 0 loperamide [Imodium A-D] 2 mg tablet 2 mg PO QID PRN (Reason: loose stool) Qty: 60 RF: 12 omeprazole 40 mg capsule,delayed release(DR/EC) 40 mg PO DAILY Qty: 30 RF: 12 folic acid 1 mg tablet 1 mg PO DAILY RF: 0 metoprolol succinate 25 mg Tablet Extended Release 24 Hr 12.5 mg PO BID Qty: 30 RF: 0 cyanocobalamin (vitamin B-12) [Vitamin B-12] 500 mcg Tablet 1,000 mcg PO DAILY Qty: 0 RF: 0 Discontinued Venclexta 100 mg tablet 100 mg PO DAILY RF: 0 Discharge Instructions Instructions: Neutropenia (DC), Pancytopenia (DC) Additional Instructions: Take your antibiotics as prescribed. Return to the hospital with any fever, bleeding, chest pain, shortness of breath. Follow up with your PCP in 1-2 weeks, with [facility] oncology and with ENT. Stand Alone Forms: Nursing Discharge Form Referrals: ENT,[facility] [OTHER] - (infrahyoid mass Referral sent office will call with an appointment.) HEMATOLOGY/ONC,[facility] [OTHER] - (Referral sent, office will call with an appointment.) Tiana Romano [Primary Care Provider] - 09/19/21 10:15 am (Appointment is with Omar Nieves.) Activity:: Activity as Tolerated Equipment/Supplies:: No Equipment Needed Diet:: As Tolerated Discharge Orders Discharge Orders: Discharge Order (Routine); Ordered 09/03/21 Ordered By: Shameka Bateman DS: Summary Time Spent with Patient providing and/or coordinating discharge services: Greater than 30 minutes Status at Discharge Functional status at discharge: independent ambulation Overall status at discharge: patient is back to baseline Mental Status: mental status grossly normal Speech and Movement: speech and movement normal Mood: congruent mood Affect: normal affect Exam Narrative Exam Narrative: General: Pleasant elderly female, A&Ox3, sitting up in bed HEENT: EOMI, MMM Heart: RRR, no m/r/g Lungs: CTAB Abdomen: soft, nontender, nondistended Extremities: no edema BLE's Psych Mental Status: mental status grossly normal Speech and Movement: speech and movement normal Mood: congruent mood Affect: normal affect DS: Data Vitals/I&O Vitals and I&O: Vital Signs Temperature 37 C 09/02/21 20:00 Temperature Source Tympanic 09/02/21 20:00 Pulse 79 09/02/21 20:00 Pulse Rhythm Regular 09/03/21 07:50 Pulse 80 08/24/21 00:50 Respiratory Rate 18 09/02/21 20:00 Respiratory Effort Non-Labored 09/03/21 07:50 Respiratory Depth Normal 09/03/21 07:50 Respiratory Pattern Normal 09/03/21 07:50 Blood Pressure 100/40 L 09/02/21 20:00 Blood Pressure Mean 64 08/24/21 00:21 Pulse Oximetry 94 09/02/21 20:00 Oxygen Delivery Method Room Air 09/02/21 20:00 Oxygen Flow Rate 0 09/02/21 20:00 Pain Level 0 09/02/21 08:28 Comment 08/28/21 08:32 Intake & Output 09/02/21 09/03/21 09/03/21 23:59 11:59 23:59 Intake Total 1020 / 1790 820 / 1060 240 / 1060 Output Total 500 / 900 1200 / 1200 Balance 520 / 890 -380 / -140 240 / -140 Weight 66.8 kg 66.4 kg Intake: IV 100 / 150 100 / 100 Oral 120 / 840 720 / 960 240 / 960 Blood Product 800 / 800 Apheresis Platelets Unit 400 / 400 [id number] Apheresis Platelets Unit 400 / 400 [id number] Output: Urine 500 / 900 1200 / 1200 Other: Urine Color Pale Light Crissy Yellow Urine Appearance Clear Clear Urine Odor None None Stool Size Moderate Moderate Stool Characteristics Soft Liquid Formed Voiding Methods Toilet Toilet Data Completed and Pending Completed studies during hospitalization [Text1]: Chest CT 08/23/2021: 1. Slight progression in the changes in the right upper lobe suggesting slight worsening of the pneumonia. 2. Stable pulmonary nodules. 3. New right indwelling central venous catheter. The tip is in good position. No fluid collection or inflammatory changes are seen around the catheter. Neck CT 09/01/21: 1. 2.4 x 2.1 cm fluid attenuation mass in the infrahyoid soft tissues. Differential considerations include, but are not limited to, laryngeal cyst, thyroglossal duct cyst or dermoid. 2. Stable right upper lobe infiltrate. Pending studies at discharge: Stool studies (C.Diff negative) Labs on day of discharge: Labs from last 24 hours 09/03/21 09/03/21 09/02/21 06:05 06:05 21:15 WBC 1.59 L* RBC 2.80 L Hgb 8.1 L Hct 24.4 L MCV 87.1 MCH 28.9 MCHC 33.2 RDW 14.8 H Plt Count 47 L D MPV 10.6 Immature Gran % 0.0 Neutrophils % 76.0 Band Neutrophils % 4 Lymphocytes % 18.0 Monocytes % 1.0 Eosinophils % 0.0 Basophils % 1.0 Nucleated RBC % 0 Absolute Neutrophils 1.27 Absolute Lymphocytes 0.29 L Absolute Monocytes 0.02 L Absolute Eosinophils 0.00 Absolute Basophils 0.02 RBC Morphology Normal Sodium 139 Potassium 4.8 Chloride 105 Carbon Dioxide 29.3 Anion Gap 4.7 BUN 23 H Creatinine 1.2 H Estimated GFR/1.73 m2 43.80 Glucose 86 Calcium 8.6 Magnesium 2.0 Stool Campylobacter PCR Pending Stool Salmonella PCR Pending Stool Shigella PCR Pending Shiga Toxin (PCR) Pending Patient ABO/Rh Antibody Screen Crossmatch 08/30/21 06:30 WBC RBC Hgb Hct MCV MCH MCHC RDW Plt Count MPV Immature Gran % Neutrophils % Band Neutrophils % Lymphocytes % Monocytes % Eosinophils % Basophils % Nucleated RBC % Absolute Neutrophils Absolute Lymphocytes Absolute Monocytes Absolute Eosinophils Absolute Basophils RBC Morphology Sodium Potassium Chloride Carbon Dioxide Anion Gap BUN Creatinine Estimated GFR/1.73 m2 Glucose Calcium Magnesium Stool Campylobacter PCR Stool Salmonella PCR Stool Shigella PCR Shiga Toxin (PCR) Patient ABO/Rh A Positive Antibody Screen NEGATIVE Crossmatch See Detail [facility] Medical History (Updated 09/03/21 @ 14:09 by Shameka Bateman MD) Acute CHF prior to TAVR. none since then Adenocarcinoma of right breast s/p Lumpectomy Advance directive on file Anemia Aortic stenosis, severe s/p TAVR Cancer of ascending colon metastatic to intra-abdominal lymph node S/p Right hemicolectomy Diarrhea Factitious hyperthyroidism GERD (gastroesophageal reflux disease) H/O malignant neoplasm of breast H/O malignant neoplasm of colon Hypertension Hypertension Hypomagnesemia Incarcerated incisional hernia Leukemia Normocytic anemia Palliative care patient Severe aortic stenosis s/p TAVR UTI (urinary tract infection) Yeast dermatitis Surgical History H/O cardiac catheterization H/O colonoscopy H/O heart valve replacement with porcine valve History of esophagogastroduodenoscopy (EGD) History of ventral hernia repair 07/01/19 at [facility] S/P cholecystectomy S/P recurrent ventral herniorrhaphy pt has [id number] polypropalene mesh implanted S/P right hemicolectomy S/p TAVR (transcatheter aortic valve replacement), bioprosthetic Status post closure of ileostomy Status post right breast lumpectomy Family History Mother Stroke Hypertension Son Diabetes type 2 Son Diabetes type 2 Father Cancer lung cancer - smoker Brother Cancer unknown type Social History Smoking/Tobacco Use Status: Former Tobacco Use Pack-years: 141 Tobacco: How many years used: 47 Smoking risk assessment performed?: Yes Alcohol Intake: former Drug use: Never Substance use type: does not use Current gender identity: female Do you feel safe at home: Yes Do you feel safe in your relationship?: Yes
--- NOTE | 2021-09-03 14:57 | PDOC.CMDIS ---
- If Service Date Differs Date of service: 09/03/21 Time of Service: 14:57 LACE Index Scoring Tool - Questions: Length of Stay (in days): 7 - 13 Acuity (Admit via E.D.?): Yes Comorbidities: Congestive Heart Failure, Any Tumor, Metastatic Solid Tumor E.D. Visits: 4 - Answers: Total Score: 17 Risk of Readmission: High Risk Care Management Discharge Reason for Hospitalization: Neutropenic Fever, Breast Mass, Lung Infiltrate Discharge Plan: Polina will discharge home via private vehicle with family. No new services will be ordered as pt declines additional supports/services at this time. Polina will follow up with her community providers and discharge plan of care. Patient/Family Education Needs: Review discharge instructions, limitations and plan to follow up with community prividers, ask me three
[2021-09-03] MEDS: Heparin 500 UNITS/5 ML SYRINGE IVP (15:42)
[2021-09-03 21:56] LABS: Campylobacter PCR Negative (Negative); Salmonella PCR Negative (Negative); Shiga Toxin PCR Negative (Negative); Shigella/Enteroinvasive Ecoli Negative (Negative)
== END 2021-09-03 15:52 | disposition home or self-care (01) | DRG 809 ==
LOC: ER 08-24 00:08 → MS 08-24 01:00
PROVIDERS: Family Medicine; Internal Medicine; Admitting Provider Family Medicine; Emergency Provider Registered Nurse Emergency; PCP Nurse Practitioner Family; Visit Provider Family Medicine
DX: D70.1 Agranulocytosis secondary to cancer chemotherapy (principal); C92.00 Acute myeloblastic leukemia, not having achieved remission; D61.818 Other pancytopenia; D69.6 Thrombocytopenia, unspecified; Z20.822 Contact with and (suspected) exposure to COVID-19; Z85.3 Personal history of malignant neoplasm of breast; Z95.4 Presence of other heart-valve replacement; Z98.0 Intestinal bypass and anastomosis status; Z85.038 Personal history of other malignant neoplasm of large intestine; E05.40 Thyrotoxicosis factitia without thyrotoxic crisis or storm; K21.9 Gastro-esophageal reflux disease without esophagitis; I10 Essential (primary) hypertension; E83.42 Hypomagnesemia; Z87.891 Personal history of nicotine dependence; N63.10 Unspecified lump in the right breast, unspecified quadrant; R50.81 Fever presenting with conditions classified elsewhere; D64.81 Anemia due to antineoplastic chemotherapy; R13.19 Other dysphagia; R91.8 Other nonspecific abnormal finding of lung field; R19.7 Diarrhea, unspecified; J38.7 Other diseases of larynx
CPT/HCPCS: 36410; 36415; 36430; 36591; 70491; 80048; 80053; 86850; 86900; 86901; 86920; 86945; 87040; 87081; 87493; 87505; 87635; 90662; 93005; 96365; 96367; 99285; P9073; 71260; 80202; 81003; 81015; 83605; 83735; 84484; 85025; 86644; 87086; 93010; 99221; 99232; 99233; 99239; J0131; J2405; J2543; J3475; J3490; P9016; P9035; Q5101

== ENCOUNTER 2021-08-30 03:11 | Outpatient (RCR) | payer MEDICARE, SELFPAY ==
[2021-08-09 11:58] LABS: HGB 8.8 g/dL (11.2-15.7); MCH 29.9 pg (27.0-33.0); MCHC 33.8 % (32.0-36.0); MCV 88.4 fL (80-95); Nucleated RBC 0 %; RBC 2.94 10^6/uL (3.93-5.22); RDW 15.1 % (11.7-14.6); RDW-SD 48.4 fL
[2021-08-09 12:08] LABS: Platelet Count 13 10^3/uL (130-400); WBC 0.92 10^3/uL (4.4-10.8)
[2021-08-09 12:09] LABS: ALT 23 U/L (14-59); AST 23 U/L (15-37); Albumin 3.3 g/dL (3.4-5.0); Alkaline Phosphatase 93 U/L (46-116); Anion Gap 8.5 mmol/L (3-11); BUN 28 mg/dL (7-18); Bilirubin, Total 0.9 mg/dL (0.2-1.0); CO2 24.5 mmol/L (21.0-32.0); CREATININE 1.5 mg/dL (0.55-1.02); Calcium 9.4 mg/dL (8.5-10.1); Chloride 100 mmol/L (98-107); Estimated GFR 33.85 (mL/min/1.73m2); Glucose 98 mg/dL (74-106); Potassium 4.3 mmol/L (3.5-5.1); Sodium 133 mmol/L (136-145); Total Protein 7.6 g/dL (6.4-8.2)
[2021-08-09 12:44] LABS: Absolute Lymphocyte Count 0.22 10^3/uL (1.2-3.4); Absolute Monocyte Count 0.04 10^3/uL (0.1-0.8); Absolute Neutrophil Count 0.66 10^3/uL (1.2-6.7); Diff Comment Manual Differential; RBC Morphology Normal
[2021-08-10 08:49] VITALS: BP 129/81; PULSE 83; RESP 19; TEMP 37.1; O2SAT 97
[2021-08-10 09:40] VITALS: BP 108/73; PULSE 78; RESP 19; TEMP 36.8; O2SAT 98
[2021-08-11] MEDS: Normal Saline Flush 10 ML SYR IVP (13:06)
[2021-08-12] MEDS: Normal Saline Flush 10 ML SYR IVP (13:17)
[2021-08-12 13:55] VITALS: BP 108/43; PULSE 87; RESP 18; TEMP 36.7; O2SAT 100
[2021-08-13 09:16] LABS: MCH 30.2 pg (27.0-33.0); MCHC 33.8 % (32.0-36.0); MCV 89.3 fL (80-95); MPV 10.5 fL (8.0-11.0); Nucleated RBC 0 %; RBC 2.25 10^6/uL (3.93-5.22); RDW 14.6 % (11.7-14.6); RDW-SD 47.8 fL
[2021-08-13 09:54] LABS: HCT 20.1 % (36.0-46.0); HGB 6.8 g/dL (11.2-15.7); WBC 0.36 10^3/uL (4.4-10.8)
[2021-08-13 09:55] LABS: Absolute Neutrophil Count 0.19 10^3/uL (1.2-6.7)
[2021-08-13 09:56] LABS: Absolute Monocyte Count 0.01 10^3/uL (0.1-0.8); Bands % 2
[2021-08-13 09:57] LABS: Diff Comment Manual Differential; Hypochromasia 1+; Platelet Count 5 10^3/uL (130-400)
[2021-08-13] MEDS: Normal Saline Flush 10 ML SYR IVP (12:00)
[2021-08-13 13:20] VITALS: BP 90/56; PULSE 81; RESP 18; TEMP 37.1; O2SAT 100
[2021-08-13 14:17] LABS: Absolute Lymphocyte Count 0.16 10^3/uL (1.2-3.4)
[2021-08-14] VITALS (12 sets, daily range): BP systolic 128–162; BP diastolic 69–105; PULSE 66–77; RESP 18–20; TEMP 36–36.8; O2SAT 96–100
[2021-08-14 08:40] LABS: Platelet Count 25 10^3/uL (130-400)
[2021-08-16 08:23] LABS: Abs Immature Grans 0.01 10^3/uL (0.0-0.06); Absolute Eosinophil Count 0.01 10^3/uL (0.0-0.7); Absolute Lymphocyte Count 0.15 10^3/uL (1.2-3.4); Absolute Monocyte Count 0.02 10^3/uL (0.1-0.8); Eosinophils % 3.8; HGB 9.7 g/dL (11.2-15.7); Immature Grans % 3.8; Lymphocytes % 57.7; MCH 30.2 pg (27.0-33.0); MCHC 34.6 % (32.0-36.0); MCV 87.2 fL (80-95); MPV 10.2 fL (8.0-11.0); Monocytes % 7.7; Nucleated RBC 0 %; RBC 3.21 10^6/uL (3.93-5.22); RDW 14.1 % (11.7-14.6); RDW-SD 44.4 fL
[2021-08-16 08:55] LABS: Absolute Neutrophil Count 0.07 10^3/uL (1.2-6.7); WBC 0.26 10^3/uL (4.4-10.8)
[2021-08-16 08:56] LABS: Diff Comment Agrees w/ Instrument; Platelet Count 31 10^3/uL (130-400); RBC Morphology Normal
[2021-08-17] MEDS: Normal Saline Flush 10 ML SYR IVP (13:14)
[2021-08-18] MEDS: Normal Saline Flush 10 ML SYR IVP (13:03)
[2021-08-19] MEDS: Normal Saline Flush 10 ML SYR IVP (13:01)
[2021-08-20] VITALS (8 sets, daily range): BP systolic 111–144; BP diastolic 62–85; PULSE 63–72; RESP 16–18; TEMP 36.4–37; O2SAT 99–100
[2021-08-20 08:49] LABS: Absolute Monocyte Count 0.01 10^3/uL (0.1-0.8); HCT 25.2 % (36.0-46.0); HGB 8.4 g/dL (11.2-15.7); MCH 29.9 pg (27.0-33.0); MCHC 33.3 % (32.0-36.0); MCV 89.7 fL (80-95); Nucleated RBC 0 %; RBC 2.81 10^6/uL (3.93-5.22); RDW 13.5 % (11.7-14.6); RDW-SD 44.5 fL
[2021-08-20 09:02] LABS: WBC 0.15 10^3/uL (4.4-10.8)
[2021-08-20 09:25] LABS: Diff Comment Manual Differential; Platelet Count 4 10^3/uL (130-400); RBC Morphology Normal
[2021-08-20 09:27] LABS: Absolute Neutrophil Count 0.05 10^3/uL (1.2-6.7); Bands % 4
[2021-08-20] MEDS: Normal Saline Flush 10 ML SYR IVP (13:32)
[2021-08-23 09:14] LABS: Absolute Lymphocyte Count 0.06 10^3/uL (1.2-3.4); Absolute Monocyte Count 0.01 10^3/uL (0.1-0.8); HCT 25.1 % (36.0-46.0); HGB 8.6 g/dL (11.2-15.7); Lymphocytes % 66.7; MCH 29.2 pg (27.0-33.0); MCHC 34.3 % (32.0-36.0); MCV 85.1 fL (80-95); MPV 9.7 fL (8.0-11.0); Monocytes % 11.1; Neutrophils % 22.2; Nucleated RBC 0 %; Platelet Count 40 10^3/uL (130-400); RBC 2.95 10^6/uL (3.93-5.22); RDW-SD 43.1 fL
[2021-08-23 09:20] LABS: WBC 0.09 10^3/uL (4.4-10.8)
[2021-08-23 09:21] LABS: Absolute Neutrophil Count 0.02 10^3/uL (1.2-6.7)
[2021-08-23] MEDS: Normal Saline Flush 10 ML SYR IVP (09:23)
[2021-08-23 09:36] LABS: RBC Morphology Normal
[2021-08-23 09:37] LABS: Diff Comment Diff Reviewed
== END 2021-08-30 23:59 | disposition home or self-care (01) ==
LOC: INF 03:11
PROVIDERS: PCP Nurse Practitioner Family; Visit Provider Internal Medicine Hematology & Oncology
DX: D61.818 Other pancytopenia (principal); D46.9 Myelodysplastic syndrome, unspecified
CPT/HCPCS: 36415; 36430; 36569; 36573; 36591; 80053; 86850; 86900; 86901; 86920; 86945; 96523; 85025; 85049; 86644; P9016; P9035

== ENCOUNTER 2021-09-28 00:57 | Outpatient (RCR) | payer MEDICARE, SELFPAY ==
[2021-08-31 00:29] VITALS: BP 121/63; PULSE 72; RESP 16; TEMP 36.4
[2021-09-06] MEDS: Normal Saline Flush 10 ML SYR IVP (09:38)
[2021-09-06 09:57] LABS: Abs Immature Grans 0.22 10^3/uL (0.0-0.06); HCT 25.8 % (36.0-46.0); HGB 8.6 g/dL (11.2-15.7); MCH 29.2 pg (27.0-33.0); MCHC 33.3 % (32.0-36.0); MCV 87.5 fL (80-95); MPV 11.9 fL (8.0-11.0); Nucleated RBC 0 %; RBC 2.95 10^6/uL (3.93-5.22); RDW 14.5 % (11.7-14.6); RDW-SD 45.1 fL
[2021-09-06 10:07] LABS: ALT 21 U/L (14-59); AST 13 U/L (15-37); Albumin 3.3 g/dL (3.4-5.0); Alkaline Phosphatase 107 U/L (46-116); Anion Gap 6.2 mmol/L (3-11); BUN 14 mg/dL (7-18); Bilirubin, Total 0.6 mg/dL (0.2-1.0); CO2 28.8 mmol/L (21.0-32.0); CREATININE 1.2 mg/dL (0.55-1.02); Calcium 9.5 mg/dL (8.5-10.1); Chloride 100 mmol/L (98-107); Glucose 101 mg/dL (74-106); Potassium 4.5 mmol/L (3.5-5.1); Sodium 135 mmol/L (136-145)
[2021-09-06 10:17] LABS: Absolute Neutrophil Count 1.13 10^3/uL (1.2-6.7); Bands % 4; WBC 1.85 10^3/uL (4.4-10.8)
[2021-09-06 10:18] LABS: Absolute Monocyte Count 0.39 10^3/uL (0.1-0.8); Metamyelocytes % 2; Myelocytes % 5; Platelet Count 24 10^3/uL (130-400)
[2021-09-10] VITALS (12 sets, daily range): BP systolic 99–142; BP diastolic 55–85; PULSE 66–75; RESP 18–20; TEMP 36.6–37; O2SAT 96–100
[2021-09-10 08:20] LABS: HCT 22.6 % (36.0-46.0); HGB 7.3 g/dL (11.2-15.7); MCH 28.7 pg (27.0-33.0); MCHC 32.3 % (32.0-36.0); MPV 11.3 fL (8.0-11.0); Nucleated RBC 0 %; RBC 2.54 10^6/uL (3.93-5.22); RDW 14.8 % (11.7-14.6); WBC 2.08 10^3/uL (4.4-10.8)
[2021-09-10 08:37] LABS: Platelet Count 12 10^3/uL (130-400)
[2021-09-10 08:40] LABS: Absolute Eosinophil Count 0.02 10^3/uL (0.0-0.7); Absolute Lymphocyte Count 0.54 10^3/uL (1.2-3.4); Absolute Monocyte Count 0.15 10^3/uL (0.1-0.8); Absolute Neutrophil Count 1.35 10^3/uL (1.2-6.7); Bands % 3; Diff Comment Manual Differential; Metamyelocytes % 1; RBC Morphology Normal
[2021-09-10] MEDS: Normal Saline Flush 10 ML SYR IVP (08:57)
[2021-09-13] MEDS: Normal Saline Flush 10 ML SYR IVP (08:05)
[2021-09-13 08:22] LABS: Abs Immature Grans 0.04 10^3/uL (0.0-0.06); Absolute Lymphocyte Count 0.28 10^3/uL (1.2-3.4); Absolute Monocyte Count 0.47 10^3/uL (0.1-0.8); Absolute Neutrophil Count 0.96 10^3/uL (1.2-6.7); HGB 10.4 g/dL (11.2-15.7); Immature Grans % 2.3; MCH 29.2 pg (27.0-33.0); MCHC 33.5 % (32.0-36.0); MCV 87.1 fL (80-95); MPV 11.2 fL (8.0-11.0); Monocytes % 26.9; Neutrophils % 54.8; Nucleated RBC 0 %; RBC 3.56 10^6/uL (3.93-5.22); RDW 14.5 % (11.7-14.6); RDW-SD 45.3 fL
[2021-09-13 08:32] LABS: Platelet Count 19 10^3/uL (130-400); WBC 1.75 10^3/uL (4.4-10.8)
[2021-09-13 08:40] LABS: Diff Comment Diff Reviewed; RBC Morphology Normal
[2021-09-14 09:17] VITALS: BP 110/73; PULSE 66; RESP 20; TEMP 36.8; O2SAT 98
[2021-09-14 09:37] VITALS: BP 113/52; PULSE 64; RESP 20; TEMP 36.8; O2SAT 99
[2021-09-14] MEDS: Normal Saline Flush 10 ML SYR IVP (09:53)
[2021-09-17] MEDS: Normal Saline Flush 10 ML SYR IVP (08:27)
[2021-09-17 08:38] LABS: Abs Immature Grans 0.02 10^3/uL (0.0-0.06); HCT 29.2 % (36.0-46.0); HGB 9.6 g/dL (11.2-15.7); MCH 29.2 pg (27.0-33.0); MCHC 32.9 % (32.0-36.0); MCV 88.8 fL (80-95); MPV 10.7 fL (8.0-11.0); Nucleated RBC 0 %; RBC 3.29 10^6/uL (3.93-5.22); RDW 14.6 % (11.7-14.6); RDW-SD 46.6 fL
[2021-09-17 08:46] LABS: WBC 1.78 10^3/uL (4.4-10.8)
[2021-09-17 09:14] LABS: Absolute Monocyte Count 0.23 10^3/uL (0.1-0.8); Absolute Neutrophil Count 1.32 10^3/uL (1.2-6.7); Bands % 2; Diff Comment Manual Differential; Metamyelocytes % 2; Platelet Count 21 10^3/uL (130-400); RBC Morphology Normal
[2021-09-20] MEDS: Normal Saline Flush 10 ML SYR IVP (09:23)
[2021-09-20 09:44] LABS: Abs Immature Grans 0.02 10^3/uL (0.0-0.06); Absolute Eosinophil Count 0.01 10^3/uL (0.0-0.7); Absolute Lymphocyte Count 0.27 10^3/uL (1.2-3.4); Absolute Monocyte Count 0.32 10^3/uL (0.1-0.8); Absolute Neutrophil Count 0.92 10^3/uL (1.2-6.7); Eosinophils % 0.6; HCT 26.1 % (36.0-46.0); HGB 8.7 g/dL (11.2-15.7); Immature Grans % 1.3; Lymphocytes % 17.5; MCH 29.3 pg (27.0-33.0); MCHC 33.3 % (32.0-36.0); MCV 87.9 fL (80-95); MPV 11.5 fL (8.0-11.0); Monocytes % 20.8; Neutrophils % 59.8; Nucleated RBC 0 %; RBC 2.97 10^6/uL (3.93-5.22); RDW-SD 47.3 fL
[2021-09-20 09:52] LABS: Platelet Count 16 10^3/uL (130-400); WBC 1.54 10^3/uL (4.4-10.8)
[2021-09-20 09:55] LABS: ALT 11 U/L (14-59); AST 9 U/L (15-37); Albumin 3.1 g/dL (3.4-5.0); Alkaline Phosphatase 83 U/L (46-116); Anion Gap 7.8 mmol/L (3-11); BUN 20 mg/dL (7-18); Bilirubin, Total 0.6 mg/dL (0.2-1.0); CO2 28.2 mmol/L (21.0-32.0); CREATININE 1.2 mg/dL (0.55-1.02); Calcium 8.8 mg/dL (8.5-10.1); Chloride 103 mmol/L (98-107); Glucose 94 mg/dL (74-106); Potassium 4.3 mmol/L (3.5-5.1); Sodium 139 mmol/L (136-145); Total Protein 7.3 g/dL (6.4-8.2)
[2021-09-20 09:56] LABS: Diff Comment Diff Reviewed; RBC Morphology Normal
[2021-09-21 07:49] VITALS: BP 118/71; PULSE 71; RESP 20; TEMP 36.5; O2SAT 97
[2021-09-21 08:20] VITALS: BP 107/64; PULSE 69; RESP 20; TEMP 36.6; O2SAT 98
[2021-09-21] MEDS: Normal Saline Flush 10 ML SYR IVP (08:27)
[2021-09-24] MEDS: Normal Saline Flush 10 ML SYR IVP (07:47)
[2021-09-24 07:58] LABS: HCT 25.1 % (36.0-46.0); HGB 8.4 g/dL (11.2-15.7); MCH 29.4 pg (27.0-33.0); MCHC 33.5 % (32.0-36.0); MCV 87.8 fL (80-95); MPV 10.6 fL (8.0-11.0); Nucleated RBC 0 %; RBC 2.86 10^6/uL (3.93-5.22); RDW 15.3 % (11.7-14.6); RDW-SD 47.6 fL; WBC 2.12 10^3/uL (4.4-10.8)
[2021-09-24 08:22] LABS: Platelet Count 16 10^3/uL (130-400)
[2021-09-24 08:23] LABS: Absolute Eosinophil Count 0.02 10^3/uL (0.0-0.7); Absolute Lymphocyte Count 0.19 10^3/uL (1.2-3.4); Absolute Monocyte Count 0.19 10^3/uL (0.1-0.8); Absolute Neutrophil Count 1.67 10^3/uL (1.2-6.7); Bands % 1; Diff Comment Manual Differential; Myelocytes % 2
[2021-09-24 08:24] LABS: RBC Morphology Normal
[2021-09-25 10:50] VITALS: BP 110/47; PULSE 63; RESP 18; TEMP 36.5; O2SAT 100
[2021-09-25 11:17] VITALS: BP 114/37; PULSE 62; RESP 18; TEMP 36.4; O2SAT 97
[2021-09-25 11:35] VITALS: BP 115/42; PULSE 67; RESP 18; TEMP 36.3; O2SAT 98
[2021-09-25 12:05] VITALS: BP 123/42; PULSE 59; RESP 20; TEMP 36.3; O2SAT 98
[2021-09-25 12:35] VITALS: BP 127/39; PULSE 59; RESP 20; TEMP 36.4; O2SAT 98
[2021-09-25] MEDS: Normal Saline Flush 10 ML SYR IVP (13:36)
[2021-09-27] MEDS: Normal Saline Flush 10 ML SYR IVP (07:47)
[2021-09-27 08:01] LABS: HCT 26.2 % (36.0-46.0); HGB 8.7 g/dL (11.2-15.7); MCH 29.4 pg (27.0-33.0); MCHC 33.2 % (32.0-36.0); MCV 88.5 fL (80-95); MPV 11.8 fL (8.0-11.0); Nucleated RBC 0 %; RBC 2.96 10^6/uL (3.93-5.22); RDW 15.4 % (11.7-14.6); WBC 2.27 10^3/uL (4.4-10.8)
[2021-09-27 08:09] LABS: Platelet Count 19 10^3/uL (130-400)
[2021-09-27 08:28] LABS: Absolute Eosinophil Count 0.02 10^3/uL (0.0-0.7); Absolute Lymphocyte Count 0.23 10^3/uL (1.2-3.4); Absolute Monocyte Count 0.11 10^3/uL (0.1-0.8); Absolute Neutrophil Count 1.91 10^3/uL (1.2-6.7); Diff Comment Manual Differential
[2021-09-27 08:29] LABS: RBC Morphology Normal
[2021-09-28 10:45] VITALS: BP 125/57; PULSE 64; RESP 20; TEMP 36.6; O2SAT 100
[2021-09-28] MEDS: Normal Saline Flush 10 ML SYR IVP (10:49)
[2021-09-28 11:40] VITALS: BP 119/69; PULSE 65; RESP 20; TEMP 36.7; O2SAT 98
== END 2021-09-30 23:59 | disposition home or self-care (01) ==
LOC: INF 00:57
PROVIDERS: PCP Nurse Practitioner Family; Visit Provider Internal Medicine Hematology & Oncology
DX: D61.818 Other pancytopenia (principal); D46.9 Myelodysplastic syndrome, unspecified; Z45.2 Encounter for adjustment and management of vascular access device
CPT/HCPCS: 36415; 36430; 36591; 80053; 86850; 86900; 86901; 86920; 86945; P9073; 85025; 86644; P9016; P9035

== ENCOUNTER 2021-10-14 15:23 | Inpatient (IN) | payer MEDICARE, SELFPAY ==
[2021-10-14] VITALS (58 sets, daily range): BP systolic 91–142; BP diastolic 33–100; PULSE 67–108; RESP 11–21; TEMP 36–38.1; O2SAT 93–100
--- NOTE | 2021-10-14 16:00 | DI.RAD_ITS ---
Exam(s) XR PORTABLE CHEST AP EXAM: XR PORTABLE CHEST AP CLINICAL HISTORY: fever, recent neutropenia. TECHNIQUE: 2D digital imaging was performed. COMPARISON: CR XR CHEST 2V PA LATERAL from 07/18/[address] NECK W from 09/01/[address] NECK W from 09/01/2021 FINDINGS: Heart size upper normal. Aortic valve stent graft again noted distal tip of the Port-A-Cath is at th e SVC RA junction.. The mediastinum is not widened. Left lung is clear. There is infiltrate in the right upper lobe. No pleural effusions. IMPRESSION: Right upper lobe infiltrate. This was evident on the lower most images of the neck CT scan performed 09/01/2021 DATA REPOSITORY: RADIATION DOSE DELIVERED: All CT scans at this facility use at least one of these dose optimization techniques: automated exposure control; mA and/or kV adjustment per patient size (includes targeted e xams where dose is matched to clinical indication); or iterative reconstruction.
--- NOTE | 2021-10-14 16:05 | ED.GENADUL_ITS ---
Discharge Plan Disposition Patient Disposition: [facility] INPATIENT Condition: Stable Discharge Details Clinical Impression: Thrombocytopenia, Fever and neutropenia, Leukemia Primary Care Provider: Tiana Romano ED Provider: Cj Laurent Home Meds and New Rx's Prescriptions: No Action acetaminophen [Tylenol Extra Strength] 500 mg tablet 1,000 mg PO TID PRNRF: 0 loperamide [Imodium A-D] 2 mg tablet 2 mg PO QID PRN (Reason: loose stool) Qty: 60 RF: 12 omeprazole 40 mg capsule,delayed release(DR/EC) 40 mg PO DAILY Qty: 30 RF: 12 folic acid 1 mg tablet 1 mg PO DAILY RF: 0 fluconazole 100 mg Tablet 200 mg PO DAILY Qty: 30 RF: 0 acyclovir 400 mg Tablet 400 mg PO BID Qty: 60 RF: 0 Sore Throat (phenol) 1.4 % Aerosol,[place] 180 ml mucous membrane QID PRN PRNQty: 0 RF: 0 nystatin 100,000 unit/gram Powder 1 applic topical TID Qty: 60 RF: 0 ondansetron 4 mg tablet,disintegrating 4 mg PO Q8H PRN (Reason: nausea and vomiting) Qty: 12 RF: 0 metoprolol succinate 25 mg Tablet Extended Release 24 Hr 12.5 mg PO BID Qty: 30 RF: 0 cyanocobalamin (vitamin B-12) [Vitamin B-12] 500 mcg Tablet 1,000 mcg PO DAILY Qty: 0 RF: 0 Medical Decision Making 76-year-old female presents from home with fever and chills. She has a history of leukemia with previous neutropenia and thrombocytopenia. She was most recently admitted to the hospital with discharged on September 03. She had been admitted for neutropenic fever. She states she has been feeling well in the interim until early this morning when she awoke with fever and some shaking chills at home. Patient states she had a cough yesterday that seems self-limited. She has no other new complaints. Patient is febrile with a temp of 38.1 after taking Tylenol at home for a temperature of 101.7.. Differential diagnosis includes neutropenic fever, recurrent low blood counts. Patient IV access established, referred for laboratory testing including blood cultures and lack acid, chest x-ray, urinalysis Patient's laboratories note a white count of 0.14, hemoglobin 6.7, hematocrit 19.0, platelets 3, ANC of 0.07. Chest x-ray: Notes interstitial coarsening and ill-defined increased attenuation in the right upper lung zone, similar to patchy groundglass opacities on recent CT scan. Case discussed with on-call heme-onc at [facility]. They recommend 1 unit packed red blood cell transfusion, 1 pack of platelet transfusion. They recommend admission and coverage with broad-spectrum antibiotics. Additionally, oncology recommends discussing with them initiation of G-CSF if the patient's ANC below 500 (filgrastim 5mcg/kg/day). Case discussed with Dr. Wilson and patient to be admitted. HPI General Mode of arrival: ambulatory . Date/Time Provider Initiated Documentation: 10/14/21 15:24 . Limitations to Documentation: no limitations . Information obtained by: patient . History of Present Illness 76 year old F presents to the emergency department with the chief complaint of Fever and chills, recurrent, history of leukemia and history of neutropenia, described as moderate, Patient started experiencing this hour(s) and it has been intermittent. No relieving factors improve symptom(s), No exacerbating factors reported . Patient notes cough and fever/chills. Patient did receive the following treatments prior to arrival, none Related Data Home Medications Medication Instructions Recorded Confirmed metoprolol succinate 12.5 mg PO BID #30 tab 04/16/20 10/14/21 acetaminophen 500 mg tablet 1,000 mg PO TID PRN tab 08/30/20 08/23/21 loperamide 2 mg tablet 2 mg PO QID PRN #60 tab 09/01/20 10/14/21 omeprazole 40 mg capsule,delayed 40 mg PO DAILY #30 cap 10/04/20 10/14/21 release cyanocobalamin (vitamin B-12) 1,000 mcg PO DAILY #0 tab 07/21/21 10/14/21 [Vitamin B-12] folic acid 1 mg PO DAILY 08/23/21 10/14/21 acyclovir 400 mg PO BID #60 tab 09/03/21 10/14/21 fluconazole 200 mg PO DAILY #30 tab 09/03/21 10/14/21 nystatin 1 applic TOPICAL TID #60 g 09/03/21 10/14/21 phenol [Sore Throat (phenol)] 180 ml MUCOUS MEMBRANE QID PRN PRN 09/03/21 10/14/21 #0 ml ondansetron 4 mg PO Q8H PRN #12 tab 09/06/21 10/14/21 Previous Rx's Medication Instructions Recorded metoprolol succinate 12.5 mg PO BID #30 tab 04/16/20 loperamide 2 mg tablet 2 mg PO QID PRN #60 tab 09/01/20 omeprazole 40 mg capsule,delayed 40 mg PO DAILY #30 cap 10/04/20 release cyanocobalamin (vitamin B-12) 1,000 mcg PO DAILY #0 tab 07/21/21 [Vitamin B-12] acyclovir 400 mg PO BID #60 tab 09/03/21 fluconazole 200 mg PO DAILY #30 tab 09/03/21 nystatin 1 applic TOPICAL TID #60 g 09/03/21 phenol [Sore Throat (phenol)] 180 ml MUCOUS MEMBRANE QID PRN PRN 09/03/21 #0 ml ondansetron 4 mg PO Q8H PRN #12 tab 09/06/21 Allergies Allergy/AdvReac Type Severity Reaction Status Date / Time morphine Allergy Intermediate Hives Unverified 10/14/21 15:35 General Stated Complaint: Fever JEANIE: 3 Review of Systems Narrative: Fever and chills at home. Had a cough last night. Has had low platelets and low white blood cell counts. Denies urinary changes, no abdominal pain, nor sore throat. 8 systems reviewed and otherwise negative [facility] Medical History Acute CHF prior to TAVR. none since then Adenocarcinoma of right breast s/p Lumpectomy Advance directive on file Anemia Aortic stenosis, severe s/p TAVR Cancer of ascending colon metastatic to intra-abdominal lymph node S/p Right hemicolectomy Diarrhea Factitious hyperthyroidism GERD (gastroesophageal reflux disease) H/O malignant neoplasm of breast H/O malignant neoplasm of colon Hypertension Hypertension Hypomagnesemia Incarcerated incisional hernia Leukemia Normocytic anemia Palliative care patient Severe aortic stenosis s/p TAVR UTI (urinary tract infection) Yeast dermatitis Surgical History H/O cardiac catheterization H/O colonoscopy H/O heart valve replacement with porcine valve History of esophagogastroduodenoscopy (EGD) History of [place] [facility] [place]ole[place] S/P recurrent ventral herniorrhaphy pt has [id number] polypropalene mesh implanted S/P right hemicolectomy S/p TAVR (transcatheter aortic valve replacement), bioprosthetic Status post closure of ileostomy Status post right breast lumpectomy Family History Mother Stroke Hypertension Son Diabetes type 2 Son Diabetes type 2 Father Cancer lung cancer - smoker Brother Cancer unknown type Social History Smoking/Tobacco Use Status: Former Tobacco Use Pack-years: 141 Tobacco: How many years used: 47 Smoking risk assessment performed?: Yes Alcohol Intake: former Drug use: Never Substance use type: does not use Current gender identity: female Do you feel safe at home: Yes Do you feel safe in your relationship?: Yes Exam Narrative Exam Narrative: GEN: awake, alert, oriented 3. Pleasant, well groomed, interactive. HEAD: Normocephalic, atraumatic ENT: Mucous membranes moist, oropharynx unremarkable, External ear exam unremarkable EYES: PERRL, EOMI NECK: Full ROM, no MIKE, no menigismus CHEST/RESP: Right anterior chest wall port, nontender, clear to auscultation bilateral, no wheeze/rhonchi/rales CARDIOVASCULAR: RRR, no murmur, rub osman. 2+ Rad pulse bilateral ABDOMEN: Soft, nontender, no mass. +Bowel sounds EXT: Full ROM, no edema, no rash Neuro: Grossly normal neurologic exam, conversant, interactive. Psych: Speech fluent, thoughts congruent, affect normal Course Vital Signs Vital signs: Vital Signs Temperature 38.1 C H 10/14/21 15:32 Pulse 98 H 10/14/21 15:32 Respiratory Rate 18 10/14/21 15:32 Blood Pressure 138/78 10/14/21 15:32 Pulse Oximetry 100 10/14/21 15:32 Temperature 38.1 C H 10/14/21 15:32 Temperature Source Oral 10/14/21 15:32 Pulse 98 H 10/14/21 15:32 Respiratory Rate 18 10/14/21 15:32 Respiratory Effort Non-Labored 10/14/21 15:36 Blood Pressure 138/78 10/14/21 15:32 Blood Pressure Position Sitting 10/14/21 15:32 Pulse Oximetry 100 10/14/21 15:32 Oxygen Delivery Method Room Air 10/14/21 15:32 Oxygen Flow Rate 0 10/14/21 15:32 Pain Level 0 10/14/21 15:32
[2021-10-14] MEDS: Normal Saline 1,000 ML 150 ML IV ×2 (16:10→21:46)
[2021-10-14 16:19] LABS: Source Nasal/Nares
[2021-10-14 16:20] LABS: Absolute Lymphocyte Count 0.06 10^3/uL (1.2-3.4); Absolute Monocyte Count 0.01 10^3/uL (0.1-0.8); Lymphocytes % 42.9; MCHC 35.3 % (32.0-36.0); MCV 82.3 fL (80-95); MPV 12.8 fL (8.0-11.0); Monocytes % 7.1; Nucleated RBC 0 %; RBC 2.31 10^6/uL (3.93-5.22); RDW 14.1 % (11.7-14.6); RDW-SD 42.1 fL
[2021-10-14 16:26] LABS: Lactate 0.7 mmol/L (0.6-1.4)
[2021-10-14 16:27] LABS: HGB 6.7 g/dL (11.2-15.7)
[2021-10-14 16:28] LABS: Absolute Neutrophil Count 0.07 10^3/uL (1.2-6.7)
[2021-10-14 16:46] LABS: ALT 49 U/L (14-59); AST 32 U/L (15-37); Albumin 3.2 g/dL (3.4-5.0); Alkaline Phosphatase 94 U/L (46-116); Anion Gap 9.3 mmol/L (3-11); BUN 21 mg/dL (7-18); CO2 24.7 mmol/L (21.0-32.0); CREATININE 0.9 mg/dL (0.55-1.02); Calcium 8.4 mg/dL (8.5-10.1); Chloride 105 mmol/L (98-107); Glucose 95 mg/dL (74-106); Magnesium 1.4 mg/dL (1.8-2.4); Potassium 3.8 mmol/L (3.5-5.1); Sodium 139 mmol/L (136-145)
[2021-10-14 16:58] LABS: Bilirubin Negative (Negative); Blood Trace (Negative); Clarity Clear (Clear); Glucose Negative (Negative); Ketones Negative (Negative); Leukocyte Esterase Negative (Negative); Nitrite Negative (Negative); Specific Gravity > 1.030 (1.005-1.025); Urobilinogen 0.2 EU/dL (Up TO 0.2); pH 5.5 (5-8)
[2021-10-14 17:08] LABS: WBC 0.14 10^3/uL (4.4-10.8)
[2021-10-14 17:09] LABS: Diff Comment Agrees w/ Instrument; Microcytosis 1+; Platelet Count 3 10^3/uL (130-400)
[2021-10-14 17:12] LABS: Bacteria Rare HPF (Negative); C & S Indicated? No; Crystals Negative HPF (Negative); Epithelial Cells Few HPF (Negative); Mucus Negative (Negative); RBC 0-2 HPF (0-2); WBC Negative HPF (0-5)
[2021-10-14 17:39] LABS: COVID-19 PCR Negative (Negative)
[2021-10-14] MEDS: Acetaminophen 500 MG TAB 1000 MG PO (18:39)
[2021-10-14] MEDS: CEFEPIME 2 GM in Normal Saline 100 ML IVPB (19:05)
--- NOTE | 2021-10-14 19:22 | HPE_ITS ---
Date of service: 10/14/21 Time of Service: 19:22 Assessment and Plan Assessment and plan (1) Neutropenic fever: Status: Resolved Assessment and plan: 1. Neutropenic fever: empiric Vanco/Cefepime, plus G CSF; trend counts 2. Anemia: transfuse 2 unit pRBC; 3. Thrombocytopenia: transfuse Reviewed ADs, declines to address at this time. Will remain Full Code. History of Present Illness History of Present Illness Chief Complaint: neutropenic fever Narrative: 76 female with h/o AML, on chemo (last 2 weeks [employer] per patient). Here last month with neutropenic fever, treated with Vanco and Cefepime. Comes in now with one day of fever (101.3) and episode of shaking chills. In ER findings of note for pancytopenia, with ANC 140, platelet 3 and Hct 19. Case reviewed with [facility], advised transfuse platelet and RBC, GCSF and Vanco/Cefepime. Patient has received Cefepime at this point. I was asked to evaluate for admission. Note she is COVID negative. CXR shows patchy hyperattentuation RUL, unchanged from 08/21; urine unremarkable. Patient denies bleeding, SOB or fatigue. Endorses chronic diarrhea but states this is unchanged from baseline. Review of Systems All systems reviewed & are unremarkable except as noted in HPI and below PFSH Medical History Acute CHF prior to TAVR. none since then Adenocarcinoma of right breast s/p Lumpectomy Advance directive on file Anemia Aortic stenosis, severe s/p TAVR Cancer of ascending colon metastatic to intra-abdominal lymph node S/p Right hemicolectomy Diarrhea Factitious hyperthyroidism GERD (gastroesophageal reflux disease) H/O malignant neoplasm of breast H/O malignant neoplasm of colon Hypertension Hypertension Hypomagnesemia Incarcerated incisional hernia Leukemia Normocytic anemia Palliative care patient Severe aortic stenosis s/p TAVR UTI (urinary tract infection) Yeast dermatitis Surgical History H/O cardiac catheterization H/O colonoscopy H/O heart valve replacement with porcine valve History of esophagogastroduodenoscopy (EGD) History of ventral hernia repair 07/01/19 [place] [facility] [place] cholecystectomy S/P recurrent ventral herniorrhaphy pt has [id number] polypropalene mesh implanted S/P right hemicolectomy S/p TAVR (transcatheter aortic valve replacement), bioprosthetic Status post closure of ileostomy Status post right breast lumpectomy Family History Mother Stroke Hypertension Son Diabetes type 2 Son Diabetes type 2 Father Cancer lung cancer - smoker Brother Cancer unknown type Social History Smoking/Tobacco Use Status: Former Tobacco Use Pack-years: 141 Tobacco: How many years used: 47 Smoking risk assessment performed?: Yes Alcohol Intake: former Drug use: Never Substance use type: does not use Current gender identity: female Do you feel safe at home: Yes Do you feel safe in your relationship?: Yes Meds Allergies and Home Medications Allergies Allergy/AdvReac Type Severity Reaction Status Date / Time morphine Allergy Intermediate Hives Unverified 10/14/21 15:35 Home Medications Medication Instructions Recorded Confirmed Type metoprolol succinate 12.5 mg PO BID #30 tab 04/16/20 10/14/21 Rx acetaminophen 500 mg tablet 1,000 mg PO TID PRN tab 08/30/20 08/23/21 History loperamide 2 mg tablet 2 mg PO QID PRN #60 tab 09/01/20 10/14/21 Rx omeprazole 40 mg capsule,delayed 40 mg PO DAILY #30 cap 10/04/20 10/14/21 Rx release cyanocobalamin (vitamin B-12) 1,000 mcg PO DAILY #0 tab 07/21/21 10/14/21 Rx [Vitamin B-12] folic acid 1 mg PO DAILY 08/23/21 10/14/21 History acyclovir 400 mg PO BID #60 tab 09/03/21 10/14/21 Rx fluconazole 200 mg PO DAILY #30 tab 09/03/21 10/14/21 Rx nystatin 1 applic TOPICAL TID #60 g 09/03/21 10/14/21 Rx phenol [Sore Throat (phenol)] 180 ml MUCOUS MEMBRANE QID PRN PRN 09/03/21 10/14/21 Rx #0 ml ondansetron 4 mg PO Q8H PRN #12 tab 09/06/21 10/14/21 Rx Exam Narrative Exam Narrative: 121/39. 81, 36.7, 18, 98% RA. HEENT no intraoral lesions; neck supple; lungs clear; heart RRR; chest port site without redness or D/C' abdomen soft and NT; extremities w/o edema, petechiae distal LEs; neuro Ox3, moves all 4 s Results Labs Result diagrams: 10/14/21 16:00 10/14/21 16:00 Labs: Laboratory Results - last 24 hr 10/14/21 10/14/21 10/14/21 15:50 16:00 16:00 WBC RBC Hgb Hct MCV MCH MCHC RDW Plt Count MPV Immature Gran % Neutrophils % Lymphocytes % Monocytes % Eosinophils % Basophils % Nucleated RBC % Absolute Neutrophils Absolute Lymphocytes Absolute Monocytes Absolute Eosinophils Absolute Basophils RBC Morphology Microcytosis VBG Lactate 0.7 Sodium 139 Potassium 3.8 Chloride 105 Carbon Dioxide 24.7 Anion Gap 9.3 BUN 21 H Creatinine 0.9 Estimated GFR/1.73 m2 >= 60.00 Glucose 95 Calcium 8.4 L Magnesium 1.4 L Total Bilirubin 2.0 H AST 32 ALT 49 Alkaline Phosphatase 94 Total Protein 7.0 Albumin 3.2 L Urine Color Urine Clarity Urine pH Ur Specific [place] Urine Protein Urine Ketones Urine Blood Urine Nitrite Urine Bilirubin Urine Urobilinogen Ur Leukocyte Esterase Urine RBC Urine WBC Ur Epithelial Cells Urine Crystals Urine Bacteria Urine Mucus Ur Culture Indicated? Urine Glucose COVID-19 Source Nasal/Nares SARS-CoV-2 (PCR) Negative Crossmatch 10/14/21 10/14/21 10/14/21 16:00 16:45 18:30 WBC 0.14 L* RBC 2.31 L Hgb 6.7 L* Hct 19.0 L* MCV 82.3 MCH 29.0 MCHC 35.3 RDW 14.1 Plt Count 3 L* MPV 12.8 H Immature Gran % 0.0 Neutrophils % 50.0 Lymphocytes % 42.9 Monocytes % 7.1 Eosinophils % 0.0 Basophils % 0.0 Nucleated RBC % 0 Absolute Neutrophils 0.07 L* Absolute Lymphocytes 0.06 L Absolute Monocytes 0.01 L Absolute Eosinophils 0.00 Absolute Basophils 0.00 RBC Morphology See Below Microcytosis 1+ VBG Lactate Sodium Potassium Chloride Carbon Dioxide Anion Gap BUN Creatinine Estimated GFR/1.73 m2 Glucose Calcium Magnesium Total Bilirubin AST ALT Alkaline Phosphatase Total Protein Albumin Urine Color Yellow Urine Clarity Clear Urine pH 5.5 Ur Specific [place] > 1.030 H Urine Protein Negative Urine Ketones Negative Urine Blood Trace H Urine Nitrite Negative Urine Bilirubin Negative Urine Urobilinogen 0.2 Ur Leukocyte Esterase Negative Urine RBC 0-2 Urine WBC Negative Ur Epithelial Cells Few Urine Crystals Negative Urine Bacteria Rare Urine Mucus Negative Ur Culture Indicated? No Urine Glucose Negative COVID-19 Source SARS-CoV-2 (PCR) Crossmatch See Detail Last Vital Signs Temp 38.1 C H 10/14/21 15:32 Pulse 76 10/14/21 17:31 Resp 18 10/14/21 15:32 BP 120/43 L 10/14/21 17:31 Pulse Ox 97 10/14/21 18:00
--- NOTE | 2021-10-14 19:27 | DI.VRAD_ITS ---
PROCEDURE INFORMATION: Exam: XR Chest Exam date and time: 10/14/2021 4:05 PM Age: 76 years old Clinical indication: Prior surgery; Surgery date: 1-6 months; Surgery type: Port placed unknown date; Patient HX: Fever, recent neutropenia TECHNIQUE: Imaging protocol: XR of the chest. Views: 1 view. COMPARISON: CT CHEST W 08/24/2021 12:06 AM FINDINGS: Tubes, catheters and devices: Right approach central line terminates in expected region of the cavoatrial junction. Lungs: Interstitial coarsening and ill-defined increased attenuation in the right upper lung zone, corresponds to patchy ground-glass opacities at on the August 2021 CT. No new focal consolidation. Normal pulmonary vascularity. Pleural spaces: Unremarkable. No pleural effusion. No pneumothorax. Heart/Mediastinum: Post aortic valve replacement. Top-normal size cardiac silhouette. Vasculature: Atheromatous aorta. Bones/joints: Unremarkable. Soft tissues: Limited by overlying leads and body habitus IMPRESSION: Increased attenuation in the right upper lung zone, similar to August 2021 CT.. Dictated and Authenticated by: Brianda Sage MD. Ordering:THIAGO Corona MD
[2021-10-14] MEDS: VANCOMYCIN 1,300 MG in Normal Saline 500 ML 333.3333 MG IVPB (19:54)
[2021-10-14] MEDS: Acyclovir 400 MG TAB PO (22:42)
[2021-10-14] MEDS: Metoprolol CR 25 MG TABCR 12.5 MG PO (22:42)
[2021-10-15] VITALS (14 sets, daily range): BP systolic 106–148; BP diastolic 48–79; PULSE 66–84; RESP 16–18; TEMP 36–37.2; O2SAT 95–100
--- NOTE | 2021-10-15 | DI.RAD_ITS ---
Exam(s) XR PORTABLE CHEST AP EXAM: XR PORTABLE CHEST AP CLINICAL HISTORY: sudden pain to the left under arm. TECHNIQUE: 2D digital imaging was performed. COMPARISON: CT CT CHEST W from 08/24/[address] CHEST W from 08/24/2021 CR,XR XR PORTABLE CHEST AP from 10/14/2021 FINDINGS: Heart size is unchanged. Aortic stent valve again noted. Distal tip of the Port-A-Cath is in the lo wer SVC, unchanged.. The mediastinum is not widened. Left lung is clear. There is nodular infiltrate in the right upper. No pleural effusions.. IMPRESSION: Right upper lobe infiltrate. No pleural effusions. Thin metallic foreign bodies noted in the soft t issues in the left upper extremity. DATA REPOSITORY: RADIATION DOSE DELIVERED: All CT scans at this facility use at least one of these dose optimization techniques: automated exposure control; mA and/or kV adjustment per patient size (includes targeted e xams where dose is matched to clinical indication); or iterative reconstruction.
--- NOTE | 2021-10-15 00:43 | DI.VRAD_ITS ---
PROCEDURE INFORMATION: Exam: XR Chest Exam date and time: 10/15/2021 12:14 AM Age: 76 years old Clinical indication: Right-sided; Prior surgery; Surgery date: 6+ months; Surgery type: Heart valve, R breast lumpectomy, port; Patient HX: Sudden pain to the left under arm TECHNIQUE: Imaging protocol: XR of the chest. Views: 1 view. COMPARISON: XR PORTABLE CHEST AP 10/14/2021 6:42 PM FINDINGS: Right Port-A-Cath is grossly stable Lungs: Interstitial prominence may be mildly increased No consolidation. Pleural spaces: No pleural effusion. No pneumothorax. Heart/Mediastinum: No cardiomegaly. Bones/joints: Unremarkable. IMPRESSION: Question mild increased interstitial prominence/opacities Dictated and Authenticated by: Jamal Medina MD. Ordering:MECHELLE Maldonado MD
[2021-10-15] MEDS: Acetaminophen 500 MG TAB 1000 MG PO ×4 (03:30→19:24)
[2021-10-15] MEDS: Metoprolol CR 25 MG TABCR 12.5 MG PO ×2 (07:47→19:25)
[2021-10-15] MEDS: Fluconazole 100 MG TAB 200 MG PO (07:47)
[2021-10-15] MEDS: Omeprazole 20 MG CAPCR 40 MG PO (07:47)
[2021-10-15] MEDS: Folic Acid 1 MG TAB PO (07:48)
[2021-10-15] MEDS: Cyanocobalamin 500 MCG TAB 1000 MCG PO (07:48)
[2021-10-15] MEDS: Acyclovir 400 MG TAB PO ×2 (07:49→19:26)
[2021-10-15] MEDS: MAGNESIUM SULFATE 1 GM/100 ML BAG IVPB (07:53)
[2021-10-15 08:26] LABS: Absolute Lymphocyte Count 0.05 10^3/uL (1.2-3.4); Absolute Monocyte Count 0.01 10^3/uL (0.1-0.8); HCT 28.4 % (36.0-46.0); HGB 9.8 g/dL (11.2-15.7); Lymphocytes % 38.5; MCH 29.4 pg (27.0-33.0); MCHC 34.5 % (32.0-36.0); MCV 85.3 fL (80-95); MPV 10.1 fL (8.0-11.0); Monocytes % 7.7; Neutrophils % 53.8; Nucleated RBC 0 %; RBC 3.33 10^6/uL (3.93-5.22); RDW 14.3 % (11.7-14.6); RDW-SD 44.3 fL
[2021-10-15 08:30] LABS: Absolute Neutrophil Count 0.07 10^3/uL (1.2-6.7); WBC 0.13 10^3/uL (4.4-10.8)
[2021-10-15 08:49] LABS: Diff Comment Diff Reviewed
[2021-10-15 08:50] LABS: Platelet Count 9 10^3/uL (130-400)
[2021-10-15] MEDS: CEFEPIME 2 GM in Normal Saline 100 ML IVPB ×2 (09:25→19:26)
[2021-10-15] MEDS: Magnesium Oxide 400 MG TAB 800 MG PO (10:46)
[2021-10-15] MEDS: Loperamide 2 MG CAP PO ×2 (10:46→14:34)
[2021-10-15] MEDS: MAGNESIUM SULFATE 4 GM/100 ML BAG IVPB (10:47)
--- NOTE | 2021-10-15 14:37 | INITIAL_ITS ---
- If Service Date Differs Date of service: 10/15/21 Time of Service: 14:37 Care Management Initial Assess REASON FOR HOSPITALIZATION:: Neutropenic Fever PAST MEDICAL HISTORY/PAST SURGICAL HISTORY:: Medical History . Acute CHF. prior to TAVR. none since then. Adenocarcinoma of right breast. s/p Lumpectomy. Advance directive on file. Anemia. Aortic stenosis, severe. s/p TAVR. Cancer of ascending colon metastatic to intra-abdominal lymph node. S/p Right hemicolectomy. Diarrhea. Factitious hyperthyroidism. GERD (gastroesophageal reflux disease). H/O malignant neoplasm of breast. H/O malignant neoplasm of colon. Hypertension. Hypertension. Hypomagnesemia. Incarcerated incisional hernia. Leukemia. Normocytic anemia. Palliative care patient. Severe aortic stenosis. s/p TAVR. UTI (urinary tract infection). Yeast dermatitis. Surgical History . H/O cardiac catheterization. H/O colonoscopy. H/O heart valve replacement with porcine valve. History of esophagogastroduodenoscopy (EGD). History of [place] repair[place] [facility] [place]. S/P recurrent ventral herniorrhaphy. pt has [id number] polypropalene mesh implanted. S/P right hemicolectomy. S/p TAVR (transcatheter aortic valve replacement), bioprosthetic. Status post closure of ileostomy. Status post right breast lumpectomy PREVIOUS FUNCTIONAL STATUS/SOCIAL/FAMILY SUPPORTS:: Polina lives in [facility] with her son, daugther in-law, and grand daughter. 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 She is currently on social security. Polina is independent at baseline and does not drive. She uses [facility] private vehicle for transportation, since she is on chemo and has a weakend immune system CURRENT FUNCTIONAL STATUS:: Polina was lying in bed when CM met with her. She was awake, alert and easily engaged in conversation. She has a hx of neutropenic fever and feels that she caught it early this time and is hoping to be able to go home tomorrow. Polina reports that her chemo RX is at home and her son can bring it to the hospital tomorrow if she remains inpatient. CM spoke with [facility] a nd confirmed that Polina is prescribed Venetoclax 100mg, 4 tabs PO daily and could be restarted tomorrow. ADVANCE DIRECTIVES:: None Has patient been provided with info about the portal/API?: Yes Did the patient sign up for the portal?: No CODE STATUS:: Full Code INSURANCE COVERAGE / FINANCIAL ISSUES:: Medicare CURRENT HOME/COMMUNITY SERVICES/EQUIPMENT:: [facility] PRIMARY CARE PHYSICIAN:: Tiana Romano PATIENT/FAMILY EDUCATION NEEDS:: Review discharge instructions, limitations and plan to follow up with community prividers, ask me three. TRANSPORTATION:: Via [facility] private vehicle PLAN:: Polina will likely be discharged home with no new services when medically cleared by . Polina declines Services at this time. Anticipate Polina will be transported by [facility] private vehicle (CM will arrange.) Polina will need to follow up with her community providers and discharge plan of care. CM continues to support.
[2021-10-15] MEDS: VANCOMYCIN/WATER (PEG) 1 GM/200 ML BAG IVPB (16:08)
[2021-10-15] MEDS: Normal Saline 1,000 ML 150 ML IV ×2 (16:10→23:53)
--- NOTE | 2021-10-15 17:22 | W.PM.PROGNOT ---
Date of Service Date of service: 10/15/21 Time of Service: 14:30 Assessment and Plan Assessment and plan (1) Leukemia: Start date: 10/15/21 Start time: 14:30 Status: Chronic Assessment and plan: Patient just finished a round of chemo 2 weeks ago. BC pending. Her last round of chemo she also ran a fever. She had negative BC This likely is a chemo fever. She is on antibiotics. Will continue for now Qualifiers: Leukemia type: unspecified (2) Neutropenic fever: Start date: 10/15/21 Start time: 17:32 Status: Acute Assessment and plan: 1. Neutropenic fever: empiric Vanco/Cefepime, plus GCSF; trend counts 2. Anemia: transfused 2 unit pRBC; hemoglobin 9.8 up from 6 3. Thrombocytopenia: transfuse up from 3 Reviewed ADs, declines to address at this time. Will remain Full Code. (3) Pancytopenia: Start date: 10/15/21 Start time: 17:33 Status: Acute Assessment and plan: as above discussed with Dr. Ford Subjective Subjective Patient reports: feels better Interval history since last seen: sitting up on side of bed, looking well. Afebrile. Blood cx pending. Likely this was a chemo fever. She had a fever after her last chemo round as well. Exam Narrative Exam Narrative: RA. HEENT no intraoral lesions; neck supple; lungs clear; heart RRR; chest port site without redness or D/C' abdomen soft and NT; extremities w/o edema, petechiae distal LEs; neuro Ox3, moves all 4s Objective Last Vital Signs Temp 36.0 C L 10/15/21 07:17 Pulse 66 10/15/21 07:17 Resp 16 10/15/21 07:17 BP 121/71 10/15/21 07:17 Pulse Ox 98 10/15/21 07:17 Laboratory Results - last 24 hr 10/14/21 10/14/21 10/15/21 15:50 18:30 08:04 WBC 0.13 L* RBC 3.33 L Hgb 9.8 L D Hct 28.4 L D MCV 85.3 D MCH 29.4 MCHC 34.5 RDW 14.3 Plt Count 9 L* D MPV 10.1 Immature Gran % 0.0 Neutrophils % 53.8 Lymphocytes % 38.5 Monocytes % 7.7 Eosinophils % 0.0 Basophils % 0.0 Nucleated RBC % 0 Absolute Neutrophils 0.07 L* Absolute Lymphocytes 0.05 L Absolute Monocytes 0.01 L Absolute Eosinophils 0.00 Absolute Basophils 0.00 SARS-CoV-2 (PCR) Negative Patient ABO/Rh A Positive Antibody Screen NEGATIVE Crossmatch See Detail
[2021-10-16 08:30] VITALS: BP 140/62; PULSE 74; RESP 18; TEMP 36.7; O2SAT 97
[2021-10-16] MEDS: Cyanocobalamin 500 MCG TAB 1000 MCG PO (08:30)
[2021-10-16] MEDS: Metoprolol CR 25 MG TABCR 12.5 MG PO ×2 (08:30→19:46)
[2021-10-16] MEDS: Fluconazole 100 MG TAB 200 MG PO (08:30)
[2021-10-16] MEDS: Acyclovir 400 MG TAB PO ×2 (08:30→19:46)
[2021-10-16] MEDS: Omeprazole 20 MG CAPCR 40 MG PO (08:30)
[2021-10-16] MEDS: Folic Acid 1 MG TAB PO (08:30)
[2021-10-16] MEDS: CEFEPIME 2 GM in Normal Saline 100 ML IVPB ×2 (08:30→19:48)
[2021-10-16] MEDS: Acetaminophen 500 MG TAB 1000 MG PO (09:35)
[2021-10-16 12:09] LABS: Anion Gap 7.3 mmol/L (3-11); BUN 16 mg/dL (7-18); CO2 23.7 mmol/L (21.0-32.0); CREATININE 0.8 mg/dL (0.55-1.02); Calcium 7.7 mg/dL (8.5-10.1); Chloride 110 mmol/L (98-107); Glucose 84 mg/dL (74-106); Magnesium 2.3 mg/dL (1.8-2.4); Potassium 3.9 mmol/L (3.5-5.1); Sodium 141 mmol/L (136-145)
--- NOTE | 2021-10-16 12:26 | CMPROGNOTE_ITS ---
- If Service Date Differs Date of service: 10/16/21 Time of Service: 12:26 Care Management Progress Note S/O: Polina was lying in bed visiting with her son when CM met with her. Her son brought in her chemo medication today, 2 days (8 tabs) were kept here and the remainder of the bottle was given back to her son by RN and witnessed by CM. Son agrees to bring the medication straight home as Polina's primary concern is that the medication is expensive and she's worried about it getting miss placed. Polina is hoping to be discharged home soon and is really missing her granddaughter. A:76 year old female admitted to [facility] on 10/15/2021 for Neutropenic fever P:Polina will likely be discharged home with no new services when medically cleared by MD. Polina declines Services at this time. Anticipate Polina will be transported by [facility] private vehicle ([facility] will arrange.) Polina will need to follow up with her community providers and discharge plan of care. CM continues to support.
[2021-10-16 12:49] LABS: Anion Gap 6.6 mmol/L (3-11); BUN 16 mg/dL (7-18); CO2 23.4 mmol/L (21.0-32.0); CREATININE 0.8 mg/dL (0.55-1.02); Calcium 7.8 mg/dL (8.5-10.1); Chloride 109 mmol/L (98-107); Glucose 85 mg/dL (74-106); Sodium 139 mmol/L (136-145)
[2021-10-16 13:18] VITALS: BP 133/80; PULSE 72; RESP 16; TEMP 36.8; O2SAT 98
[2021-10-16 13:33] VITALS: BP 127/73; PULSE 68; RESP 18; TEMP 36.8; O2SAT 98
[2021-10-16 13:44] VITALS: BP 130/74; PULSE 71; RESP 16; TEMP 36.5; O2SAT 98
[2021-10-16] MEDS: Loperamide 2 MG CAP PO (13:53)
[2021-10-16 14:07] LABS: Absolute Lymphocyte Count 0.06 10^3/uL (1.2-3.4); Absolute Monocyte Count 0.01 10^3/uL (0.1-0.8); HCT 27.7 % (36.0-46.0); HGB 9.7 g/dL (11.2-15.7); MCH 29.3 pg (27.0-33.0); MCV 83.7 fL (80-95); MPV 9.7 fL (8.0-11.0); Nucleated RBC 0 %; RBC 3.31 10^6/uL (3.93-5.22); RDW 14.2 % (11.7-14.6); RDW-SD 43.1 fL
[2021-10-16 14:16] LABS: Absolute Neutrophil Count 0.03 10^3/uL (1.2-6.7)
[2021-10-16 14:19] LABS: Platelet Count 4 10^3/uL (130-400)
--- NOTE | 2021-10-16 15:15 | W.PM.PROGNOT ---
Date of Service Date of service: 10/16/21 Time of Service: 15:15 Assessment and Plan Assessment and plan (1) Leukemia: Start date: 10/16/21 Start time: 15:18 Status: Chronic Assessment and plan: Patient just finished a round of chemo 2 weeks ago. BC NGTD Her last round of chemo she also ran a fever. She had negative BC This likely is a chemo fever. She is on antibiotics. Will continue for now cefepime day 2 Qualifiers: Leukemia type: unspecified (2) Neutropenic fever: Start date: 10/16/21 Start time: 15:18 Status: Acute Assessment and plan: 1. Neutropenic fever: empiric Cefepime day 2, plus GCSF; trend counts D/c vanco 2. Anemia: stable at 9.7 3. Thrombocytopenia: down to 4 transfuse 1 unit platelet. Reviewed ADs, declines to address at this time. Will remain Full Code. (3) Pancytopenia: Start date: 10/16/21 Start time: 15:20 Status: Acute Assessment and plan: as above discussed with Dr. Ford Subjective Subjective Patient reports: feels better Interval history since last seen: Patient platelets 4 today. Transfuse 1 unit. She feels pretty good overall. Exam Narrative Exam Narrative: RA. HEENT no intraoral lesions; neck supple; lungs clear; heart RRR; chest port site without redness or D/C' abdomen soft and NT; extremities w/o edema, petechiae distal LEs; neuro Ox3, moves all 4s Objective Last Vital Signs Temp 36.5 C 10/16/21 13:44 Pulse 71 10/16/21 13:44 Resp 16 10/16/21 13:44 BP 130/74 10/16/21 13:44 Pulse Ox 98 10/16/21 13:44 Laboratory Results - last 24 hr 10/14/21 10/16/21 10/16/21 18:30 06:20 06:20 WBC 0.10 L* RBC 3.31 L Hgb 9.7 L Hct 27.7 L MCV 83.7 MCH 29.3 MCHC 35.0 RDW 14.2 Plt Count 4 L* D MPV 9.7 Immature Gran % 0.0 Neutrophils % 30.0 Lymphocytes % 60.0 Monocytes % 10.0 Eosinophils % 0.0 Basophils % 0.0 Nucleated RBC % 0 Absolute Neutrophils 0.03 L* Absolute Lymphocytes 0.06 L Absolute Monocytes 0.01 L Absolute Eosinophils 0.00 Absolute Basophils 0.00 Sodium 141 Potassium 3.9 Chloride 110 H Carbon Dioxide 23.7 Anion Gap 7.3 BUN 16 Creatinine 0.8 Estimated GFR/1.73 m2 >= 60.00 Glucose 84 Calcium 7.7 L Magnesium 2.3 Patient ABO/Rh A Positive Antibody Screen NEGATIVE Crossmatch See Detail 10/16/21 12:25 WBC RBC Hgb Hct MCV MCH MCHC RDW Plt Count MPV Immature Gran % Neutrophils % Lymphocytes % Monocytes % Eosinophils % Basophils % Nucleated RBC % Absolute Neutrophils Absolute Lymphocytes Absolute Monocytes Absolute Eosinophils Absolute Basophils Sodium 139 Potassium 4.0 Chloride 109 H Carbon Dioxide 23.4 Anion Gap 6.6 BUN 16 Creatinine 0.8 Estimated GFR/1.73 m2 >= 60.00 Glucose 85 Calcium 7.8 L Magnesium Patient ABO/Rh Antibody Screen Crossmatch
[2021-10-16 19:17] VITALS: BP 147/86; PULSE 80; RESP 18; TEMP 36.3; O2SAT 98
[2021-10-16] MEDS: Normal Saline Flush 10 ML SYR IVP (19:47)
[2021-10-17 06:00] VITALS: BP 122/68; PULSE 70; RESP 18; TEMP 36.1; O2SAT 97
[2021-10-17 07:00] LABS: Absolute Lymphocyte Count 0.06 10^3/uL (1.2-3.4); Absolute Monocyte Count 0.01 10^3/uL (0.1-0.8); HCT 24.3 % (36.0-46.0); HGB 8.5 g/dL (11.2-15.7); Lymphocytes % 66.7; MCH 29.4 pg (27.0-33.0); MCV 84.1 fL (80-95); MPV 12.4 fL (8.0-11.0); Monocytes % 11.1; Neutrophils % 22.2; Nucleated RBC 0 %; RBC 2.89 10^6/uL (3.93-5.22); RDW 14.6 % (11.7-14.6); RDW-SD 44.3 fL
[2021-10-17 07:18] LABS: Anion Gap 6.9 mmol/L (3-11); BUN 16 mg/dL (7-18); CO2 26.1 mmol/L (21.0-32.0); CREATININE 0.8 mg/dL (0.55-1.02); Calcium 8.2 mg/dL (8.5-10.1); Chloride 106 mmol/L (98-107); Glucose 78 mg/dL (74-106); Potassium 3.9 mmol/L (3.5-5.1); Sodium 139 mmol/L (136-145)
[2021-10-17 07:32] LABS: Absolute Neutrophil Count 0.02 10^3/uL (1.2-6.7); WBC 0.09 10^3/uL (4.4-10.8)
[2021-10-17 07:33] LABS: Diff Comment Agrees w/ Instrument; Platelet Count 10 10^3/uL (130-400); RBC Morphology Normal
[2021-10-17 08:13] VITALS: BP 133/65; PULSE 85; RESP 16; TEMP 36.2; O2SAT 98
[2021-10-17] MEDS: Omeprazole 20 MG CAPCR 40 MG PO (08:14)
[2021-10-17] MEDS: Fluconazole 100 MG TAB 200 MG PO (08:14)
[2021-10-17] MEDS: Metoprolol CR 25 MG TABCR 12.5 MG PO (08:15)
[2021-10-17] MEDS: Cyanocobalamin 500 MCG TAB 1000 MCG PO (08:15)
[2021-10-17] MEDS: Normal Saline Flush 10 ML SYR IVP ×2 (08:15→09:50)
[2021-10-17] MEDS: Folic Acid 1 MG TAB PO (08:15)
[2021-10-17] MEDS: Acyclovir 400 MG TAB PO (08:15)
[2021-10-17] MEDS: Loperamide 2 MG CAP PO ×2 (08:26→11:21)
[2021-10-17] MEDS: CEFEPIME 2 GM in Normal Saline 100 ML IVPB (08:26)
[2021-10-17] MEDS: Normal Saline 500 ML 100 ML IV (08:26)
--- NOTE | 2021-10-17 08:54 | PDOC.CMPRO ---
- If Service Date Differs Date of service: 10/17/21 Time of Service: 08:54 Care Management Progress Note S/O: A:76 year old female admitted to [facility] on 10/15/2021 for Neutropenic fever P:Polina will likely be discharged home with no new services when medically cleared by MD. Polina declines Services at this time. Anticipate Polina will be transported by [facility] private vehicle (CM will arrange.) Polina will need to follow up with her community providers and discharge plan of care. CM continues to support.
--- NOTE | 2021-10-17 12:43 | W.PM.DS.N ---
Date of service: 10/17/21 Time of Service: 12:44 DS: Diagnosis Discharge Diagnosis (1) Leukemia: Start date: 10/17/21 Start time: 12:44 Status: Chronic Asessment and Plan: Admitted with pancytopenia. WBC of 0.14, ANC of 0.07, Hgb of 6.7, HCT 19.0 with fever 38.1, she was initiated on vanco and zosyn. She was 2 weeks post chemo. This is her second round. She was transfused 2 unist PRBC, 1 unit platelets and given nupogen. Her H/h came up to 9.8, then 9.7 and today 8.5. She has been stable from that aspect. Platelets dropped from 9 to 4 yesterday and she required a dose of platelets. Her urine was negative. Question of right upper lobe opacities. however LSC, no SOB, no cough does not present as if she has pneumonia. Fever defervesed. She only had a fever on admission. Blood culture have been negative. Vanco was dcd yesterday. Will continue course of cefpodoxime x 7 days, however fever likely chemo fever as she ran one her last round as well. f/u with disability benefits specialist in 1-2 weeks regarding admission (2) Neutropenic fever: Start date: 10/17/21 Start time: 12:56 Status: Acute Asessment and Plan: as above (3) Pancytopenia: Start date: 10/17/21 Start time: 12:56 Status: Acute Asessment and Plan: as above discussed with Dr. Ford Discharge Plan Disposition Patient Disposition: HOME Condition: Improving Discharge Details Reason For Visit: Neutropenic Fever Admit Date/Time: 10/14/21 19:45 Admit Provider: Joel Wilson Attending Provider: Joel Wilson Primary Care Provider: Tiana Romano Hospital Course Hospital Course: Admitted with pancytopenia. WBC of 0.14, ANC of 0.07, Hgb of 6.7, HCT 19.0 with fever 38.1, she was initiated on vanco and zosyn. She was 2 weeks post chemo. This is her second round. She was transfused 2 unist PRBC, 1 unit platelets and given nupogen. Her H/h came up to 9.8, then 9.7 and today 8.5. She has been stable from that aspect. Platelets dropped from 9 to 4 yesterday and she required a dose of platelets. Her urine was negative. Question of right upper lobe opacities. however LSC, no SOB, no cough does not present as if she has pneumonia. Fever defervesed. She only had a fever on admission. Blood culture have been negative. Elaine was dcd yesterday. Will continue course of cefpodoxime x 7 days, however fever likely chemo fever as she ran one her last round as well. f/u with disability benefits specialist in 1-2 weeks regarding admission Home Meds and New Rx's Prescriptions: New cefpodoxime 200 mg tablet 200 mg PO BID Qty: 14 RF: 0 Continued acetaminophen [Tylenol Extra Strength] 500 mg tablet 1,000 mg PO TID PRNRF: 0 loperamide [Imodium A-D] 2 mg tablet 2 mg PO QID PRN (Reason: loose stool) Qty: 60 RF: 12 omeprazole 40 mg capsule,delayed release(DR/EC) 40 mg PO DAILY Qty: 30 RF: 12 folic acid 1 mg tablet 1 mg PO DAILY RF: 0 fluconazole 100 mg Tablet 200 mg PO DAILY Qty: 30 RF: 0 acyclovir 400 mg Tablet 400 mg PO BID Qty: 60 RF: 0 Sore Throat (phenol) 1.4 % Aerosol,[place] 180 ml mucous membrane QID PRN PRNQty: 0 RF: 0 nystatin 100,000 unit/gram Powder 1 applic topical TID Qty: 60 RF: 0 ondansetron 4 mg tablet,disintegrating 4 mg PO Q8H PRN (Reason: nausea and vomiting) Qty: 12 RF: 0 metoprolol succinate 25 mg Tablet Extended Release 24 Hr 12.5 mg PO BID Qty: 30 RF: 0 cyanocobalamin (vitamin B-12) [Vitamin B-12] 500 mcg Tablet 1,000 mcg PO DAILY Qty: 0 RF: 0 Discharge Instructions Instructions: Cefpodoxime Proxetil (By mouth), Blood Transfusion (DC), Pancytopenia (DC) Additional Instructions: follow up with your disability benefits specialist/oncologist in 1-2 weeks Take cefpdoxime for 1 week Eat yougurt daily or take probiotic for 1 month to prevent infection of the gut. Wear a mask at all times in public and prevent going out unless necessary you are highly susceptible to any type of infection Activity:: Activity as Tolerated Equipment/Supplies:: No Equipment Needed Diet:: As Tolerated Discharge Orders Discharge Orders: Discharge Order (Routine); Ordered 10/17/21 Ordered By: Ailin Casillas DS: Summary Time Spent with Patient providing and/or coordinating discharge services: Less than 30 minutes Status at Discharge Functional status at discharge: independent ambulation Overall status at discharge: patient is back to baseline Mental Status: mental status grossly normal Speech and Movement: speech and movement normal Mood: congruent mood Affect: normal affect Exam Narrative Exam Narrative: RA. HEENT no intraoral lesions; neck supple; lungs clear; heart RRR; chest port site without redness or D/C' abdomen soft and NT; extremities w/o edema, petechiae distal LEs; neuro Ox3, moves all 4s Psych Mental Status: mental status grossly normal Speech and Movement: speech and movement normal Mood: congruent mood Affect: normal affect DS: Data Vitals/I&O Vitals and I&O: Vital Signs Temperature 36.2 C L 10/17/21 08:13 Temperature Source Temporal Artery Scan 10/17/21 08:13 Pulse 85 10/17/21 08:13 Pulse Rhythm Regular 10/17/21 04:38 Pulse 79 10/14/21 20:30 Respiratory Rate 16 10/17/21 08:13 Respiratory Effort Non-Labored 10/17/21 04:38 Respiratory Depth Normal 10/17/21 04:38 Respiratory Pattern Normal 10/17/21 04:38 Blood Pressure 133/65 10/17/21 08:13 Blood Pressure Mean 56 10/14/21 20:16 Blood Pressure Position Sitting 10/14/21 15:32 Pulse Oximetry 98 10/17/21 08:13 Oxygen Delivery Method Room Air 10/17/21 08:13 Oxygen Flow Rate 0 10/17/21 08:13 Pain Level 0 10/17/21 11:21 Comment 10/17/21 11:21 Intake & Output 10/16/21 10/17/21 10/17/21 23:59 11:59 23:59 Intake Total 990 / 2090 1091.667 / 1091.667 Output Total 600 / 600 400 / 400 Balance 390 / 1490 691.667 / 691.667 Intake: IV 100 / 1200 251.667 / 251.667 Oral 240 / 240 840 / 840 Blood Product 650 / 650 Apheresis Platelets Unit 650 / 650 [id number] Output: Urine 600 / 600 400 / 400 Other: Urine Color Yellow Light Crissy Urine Appearance Clear Clear Comment patient is indepepdent with bathroom use Per pt. report, void x3 in the toilet thus far this morning (including void previously documented by this RN). she has no complaints of urinary symptoms Stool Size Small Stool Characteristics Soft Voiding Methods Toilet Toilet Data Completed and Pending Completed studies during hospitalization [Text1]: FINDINGS: Heart size is unchanged. Aortic stent valve again noted. Distal tip of the Port-A-Cath is in the lower SVC, unchanged.. The mediastinum is not widened. Left lung is clear. There is nodular infiltrate in the right upper. No pleural effusions.. IMPRESSION: Right upper lobe infiltrate. No pleural effusions. Thin metallic foreign bodies noted in the soft tissues in the left upper extremity. Labs on day of discharge: Labs from last 24 hours 10/17/21 10/17/21 10/16/21 06:30 06:30 12:25 WBC 0.09 L* RBC 2.89 L Hgb 8.5 L Hct 24.3 L MCV 84.1 MCH 29.4 MCHC 35.0 RDW 14.6 Plt Count 10 L* D MPV 12.4 H Immature Gran % 0.0 Neutrophils % 22.2 Lymphocytes % 66.7 Monocytes % 11.1 Eosinophils % 0.0 Basophils % 0.0 Nucleated RBC % 0 Absolute Neutrophils 0.02 L* Absolute Lymphocytes 0.06 L Absolute Monocytes 0.01 L Absolute Eosinophils 0.00 Absolute Basophils 0.00 RBC Morphology Normal Sodium 139 139 Potassium 3.9 4.0 Chloride 106 109 H Carbon Dioxide 26.1 23.4 Anion Gap 6.9 6.6 BUN 16 16 Creatinine 0.8 0.8 Estimated GFR/1.73 m2 >= 60.00 >= 60.00 Glucose 78 85 Calcium 8.2 L 7.8 L Magnesium 2.0 Patient ABO/Rh Antibody Screen Crossmatch 10/16/21 10/14/21 06:20 18:30 WBC 0.10 L* RBC 3.31 L Hgb 9.7 L Hct 27.7 L MCV 83.7 MCH 29.3 MCHC 35.0 RDW 14.2 Plt Count 4 L* D MPV 9.7 Immature Gran % 0.0 Neutrophils % 30.0 Lymphocytes % 60.0 Monocytes % 10.0 Eosinophils % 0.0 Basophils % 0.0 Nucleated RBC % 0 Absolute Neutrophils 0.03 L* Absolute Lymphocytes 0.06 L Absolute Monocytes 0.01 L Absolute Eosinophils 0.00 Absolute Basophils 0.00 RBC Morphology Sodium Potassium Chloride Carbon Dioxide Anion Gap BUN Creatinine Estimated GFR/1.73 m2 Glucose Calcium Magnesium Patient ABO/Rh A Positive Antibody Screen NEGATIVE Crossmatch See Detail Preliminary micro results at discharge 10/14/21 17:40 Blood Culture - Preliminary Blood NO GROWTH 48 HOURS 10/14/21 16:00 Blood Culture - Preliminary Blood NO GROWTH 48 HOURS [facility] Active Problem List Neutropenic fever (Acute) Pancytopenia (Acute) Discharge planning issues (Acute) DVT prophylaxis (Acute) AML (acute myeloblastic leukemia) (Acute) Odynophagia (Acute) Palliative care patient (Acute) Leukemia (Chronic) Lung infiltrate (Acute) Breast mass (Chronic) Thrombocytopenia (Chronic) Fever and neutropenia (Acute) GI bleeding (Acute) Abnormal CT of the chest (Acute) Pancytopenia (Acute) Dyspnea on exertion (Acute) S/P recurrent ventral herniorrhaphy (Acute) S/P right hemicolectomy (Chronic) Diarrhea (Acute) GERD (gastroesophageal reflux disease) (Acute) Adenocarcinoma of right breast (Acute) S/p TAVR (transcatheter aortic valve replacement), bioprosthetic (Acute) Cancer of ascending colon metastatic to intra-abdominal lymph node (Acute) Hypertension (Chronic) History of aortic valve replacement with bioprosthetic valve (Acute) Medical History Acute CHF prior to TAVR. none since then Advance directive on file Anemia Aortic stenosis, severe s/p TAVR Factitious hyperthyroidism H/O malignant neoplasm of breast H/O malignant neoplasm of colon Hypertension Hypertension Hypomagnesemia Normocytic anemia Severe aortic stenosis s/p TAVR UTI (urinary tract infection) Surgical History H/O cardiac catheterization H/O colonoscopy H/O heart valve replacement with porcine valve History of esophagogastroduodenoscopy (EGD) History of ventral hernia repair 07/01/19 at [facility] S/P cholecystectomy Status post closure of ileostomy Status post right breast lumpectomy Family History Mother Stroke Hypertension Son Diabetes type 2 Son Diabetes type 2 Father Cancer lung cancer - smoker Brother Cancer unknown type Social History Smoking/Tobacco Use Status: Former Tobacco Use Pack-years: 141 Tobacco: How many years used: 47 Smoking risk assessment performed?: Yes Alcohol Intake: former Drug use: Never Substance use type: does not use Current gender identity: female Do you feel safe at home: Yes Do you feel safe in your relationship?: Yes
--- NOTE | 2021-10-17 13:43 | CMDISCH_ITS ---
- If Service Date Differs Date of service: 10/17/21 Time of Service: 13:43 LACE Index Scoring Tool - Questions: Length of Stay (in days): 3 Acuity (Admit via E.D.?): Yes Comorbidities: Congestive Heart Failure, Metastatic Solid Tumor E.D. Visits: 5 - Answers: Total Score: 15 Risk of Readmission: High Risk Care Management Discharge Reason for Hospitalization: Neutropenic Fever Discharge Plan: Discharge home via [facility] private vehicle. No new [facility] services, per patient. Follow up with community providers and discharge plan of care as prescribed. Patient/Family Education Needs: Review discharge instructions, limitations, medications and plan to follow up with community providers. ask me three.
== END 2021-10-17 13:43 | disposition home or self-care (01) | DRG 809 ==
LOC: ER 20:12 → MS 20:43
PROVIDERS: Nurse Practitioner Family; Admitting Provider General Practice; Emergency Provider Emergency Medicine; PCP Nurse Practitioner Family; Visit Provider General Practice
DX: D70.1 Agranulocytosis secondary to cancer chemotherapy (principal); C92.00 Acute myeloblastic leukemia, not having achieved remission; R50.81 Fever presenting with conditions classified elsewhere; D69.59 Other secondary thrombocytopenia; Z20.822 Contact with and (suspected) exposure to COVID-19; Z85.3 Personal history of malignant neoplasm of breast; E05.40 Thyrotoxicosis factitia without thyrotoxic crisis or storm; Z85.038 Personal history of other malignant neoplasm of large intestine; E83.42 Hypomagnesemia; I10 Essential (primary) hypertension; Z95.3 Presence of xenogenic heart valve; Z87.891 Personal history of nicotine dependence
CPT/HCPCS: 36415; 36430; 80048; 80053; 86850; 86900; 86901; 86920; 86945; 87040; 87635; 96365; 96367; 96372; 99285; P9073; 71045; 81003; 81015; 83605; 83735; 85025; 99222; 99232; 99238; 99284; J3475; P9016; P9035

== ENCOUNTER 2021-10-29 09:00 | Outpatient (RCR) | payer MEDICARE, SELFPAY ==
[2021-10-01] VITALS (8 sets, daily range): BP systolic 115–138; BP diastolic 68–79; PULSE 61–72; RESP 18–20; TEMP 36.5–36.8; O2SAT 96–100
[2021-10-01] MEDS: Normal Saline Flush 10 ML SYR IVP (07:48)
[2021-10-01 07:57] LABS: Abs Immature Grans 0.03 10^3/uL (0.0-0.06); HCT 24.8 % (36.0-46.0); HGB 8.4 g/dL (11.2-15.7); MCH 29.9 pg (27.0-33.0); MCHC 33.9 % (32.0-36.0); MCV 88.3 fL (80-95); MPV 12.3 fL (8.0-11.0); Nucleated RBC 0 %; RBC 2.81 10^6/uL (3.93-5.22); RDW 15.8 % (11.7-14.6); RDW-SD 50.6 fL; WBC 2.01 10^3/uL (4.4-10.8)
[2021-10-01 08:19] LABS: Absolute Eosinophil Count 0.04 10^3/uL (0.0-0.7); Absolute Lymphocyte Count 0.12 10^3/uL (1.2-3.4); Absolute Monocyte Count 0.08 10^3/uL (0.1-0.8); Absolute Neutrophil Count 1.73 10^3/uL (1.2-6.7); Bands % 1
[2021-10-01 08:20] LABS: Diff Comment Manual Differential; Hypochromasia 2+; Myelocytes % 2
[2021-10-01 08:23] LABS: Platelet Count 9 10^3/uL (130-400)
[2021-10-04] MEDS: Normal Saline Flush 10 ML SYR IVP (07:47)
[2021-10-04 07:59] LABS: Abs Immature Grans 0.01 10^3/uL (0.0-0.06); Absolute Neutrophil Count 1.49 10^3/uL (1.2-6.7); HCT 28.5 % (36.0-46.0); HGB 9.5 g/dL (11.2-15.7); MCH 28.8 pg (27.0-33.0); MCHC 33.3 % (32.0-36.0); MCV 86.4 fL (80-95); Nucleated RBC 0 %; RDW 15.7 % (11.7-14.6); RDW-SD 49.2 fL
[2021-10-04 08:19] LABS: Absolute Monocyte Count 0.08 10^3/uL (0.1-0.8); Diff Comment Manual Differential; RBC Morphology Normal
[2021-10-04 08:36] LABS: Platelet Count 6 10^3/uL (130-400); WBC 1.67 10^3/uL (4.4-10.8)
[2021-10-04 12:18] VITALS: BP 113/62; PULSE 63; RESP 18; TEMP 36.9; O2SAT 99
[2021-10-04 12:40] VITALS: BP 116/73; PULSE 65; RESP 18; TEMP 36.8; O2SAT 99
[2021-10-08] MEDS: Normal Saline Flush 10 ML SYR IVP (07:54)
[2021-10-08 08:21] LABS: HCT 24.5 % (36.0-46.0); HGB 8.4 g/dL (11.2-15.7); MCH 28.5 pg (27.0-33.0); MCHC 34.3 % (32.0-36.0); MCV 83.1 fL (80-95); Nucleated RBC 0 %; RBC 2.95 10^6/uL (3.93-5.22); RDW 15.1 % (11.7-14.6); RDW-SD 44.9 fL
[2021-10-08 08:33] LABS: WBC 0.35 10^3/uL (4.4-10.8)
[2021-10-08 08:40] LABS: Platelet Count 4 10^3/uL (130-400)
[2021-10-08 08:41] LABS: Absolute Lymphocyte Count 0.13 10^3/uL (1.2-3.4); Bands % 2
[2021-10-08 08:42] LABS: Absolute Monocyte Count 0.01 10^3/uL (0.1-0.8); Diff Comment Manual Differential; RBC Morphology Normal
[2021-10-08 08:51] LABS: Absolute Neutrophil Count 0.21 10^3/uL (1.2-6.7)
[2021-10-08 09:35] VITALS: BP 108/53; PULSE 66; RESP 18; TEMP 37.2; O2SAT 99
[2021-10-08 10:00] VITALS: BP 111/60; PULSE 66; RESP 18; TEMP 36.6; O2SAT 98
[2021-10-08 10:30] VITALS: BP 128/75; PULSE 67; RESP 18; TEMP 35.8; O2SAT 100
[2021-10-08 11:05] VITALS: BP 105/59; PULSE 63; RESP 20; TEMP 36.7; O2SAT 99
[2021-10-08 12:25] VITALS: BP 121/79; PULSE 62; RESP 20; TEMP 36.7; O2SAT 100
[2021-10-08 12:55] VITALS: BP 134/55; PULSE 70; RESP 20; TEMP 37; O2SAT 100
[2021-10-11 08:17] VITALS: BP 113/63; PULSE 77; RESP 18; TEMP 36.5; O2SAT 100
[2021-10-11] MEDS: Normal Saline Flush 10 ML SYR IVP (08:21)
[2021-10-11 08:29] LABS: Absolute Lymphocyte Count 0.07 10^3/uL (1.2-3.4); Absolute Monocyte Count 0.02 10^3/uL (0.1-0.8); HCT 27.1 % (36.0-46.0); HGB 9.5 g/dL (11.2-15.7); Lymphocytes % 29.2; MCHC 35.1 % (32.0-36.0); MCV 82.6 fL (80-95); MPV 11.6 fL (8.0-11.0); Monocytes % 8.3; Neutrophils % 62.5; Nucleated RBC 0 %; RBC 3.28 10^6/uL (3.93-5.22); RDW 14.4 % (11.7-14.6); RDW-SD 42.6 fL
[2021-10-11] MEDS: Normal Saline 1,000 ML 500 ML IV (09:00)
[2021-10-11 09:16] LABS: Diff Comment Agrees w/ Instrument; Platelet Count 6 10^3/uL (130-400); RBC Morphology Normal; WBC 0.24 10^3/uL (4.4-10.8)
[2021-10-11 09:17] LABS: ALT 48 U/L (14-59); AST 38 U/L (15-37); Absolute Neutrophil Count 0.15 10^3/uL (1.2-6.7); Albumin 3.7 g/dL (3.4-5.0); Alkaline Phosphatase 106 U/L (46-116); Anion Gap 8.2 mmol/L (3-11); BUN 31 mg/dL (7-18); Bilirubin, Total 1.6 mg/dL (0.2-1.0); CO2 23.8 mmol/L (21.0-32.0); Calcium 8.9 mg/dL (8.5-10.1); Chloride 104 mmol/L (98-107); Estimated GFR 54.05 (mL/min/1.73m2); Glucose 107 mg/dL (74-106); Potassium 4.2 mmol/L (3.5-5.1); Sodium 136 mmol/L (136-145); Total Protein 7.8 g/dL (6.4-8.2)
[2021-10-11 11:55] LABS: C Diff PCR Negative (Negative)
[2021-10-11 14:44] VITALS: BP 118/56; PULSE 64; RESP 18; TEMP 36.9; O2SAT 99
[2021-10-11 14:50] VITALS: BP 128/70; PULSE 81; RESP 17; TEMP 36.6; O2SAT 100
[2021-10-11 23:03] LABS: Campylobacter PCR Negative (Negative); Salmonella PCR Negative (Negative); Shiga Toxin PCR Negative (Negative); Shigella/Enteroinvasive Ecoli Negative (Negative)
[2021-10-18] MEDS: Normal Saline Flush 10 ML SYR IVP (07:54)
[2021-10-18 08:35] LABS: Absolute Lymphocyte Count 0.06 10^3/uL (1.2-3.4); HCT 25.8 % (36.0-46.0); Lymphocytes % 85.7; MCH 29.6 pg (27.0-33.0); MCHC 34.9 % (32.0-36.0); MCV 84.9 fL (80-95); Neutrophils % 14.3; Nucleated RBC 0 %; RBC 3.04 10^6/uL (3.93-5.22); RDW 14.8 % (11.7-14.6); RDW-SD 45.9 fL
[2021-10-18 08:40] LABS: WBC 0.07 10^3/uL (4.4-10.8)
[2021-10-18 08:41] LABS: Platelet Count 5 10^3/uL (130-400)
[2021-10-18 08:42] LABS: Absolute Neutrophil Count 0.01 10^3/uL (1.2-6.7)
[2021-10-18 08:46] LABS: ALT 33 U/L (14-59); AST 16 U/L (15-37); Albumin 2.7 g/dL (3.4-5.0); Alkaline Phosphatase 91 U/L (46-116); Anion Gap 9.4 mmol/L (3-11); BUN 18 mg/dL (7-18); Bilirubin, Total 1.2 mg/dL (0.2-1.0); CO2 23.6 mmol/L (21.0-32.0); CREATININE 0.9 mg/dL (0.55-1.02); Calcium 8.5 mg/dL (8.5-10.1); Chloride 106 mmol/L (98-107); Glucose 106 mg/dL (74-106); Potassium 3.8 mmol/L (3.5-5.1); Sodium 139 mmol/L (136-145); Total Protein 6.9 g/dL (6.4-8.2)
[2021-10-18 08:58] LABS: Diff Comment Diff Reviewed; RBC Morphology Normal
[2021-10-22] VITALS (10 sets, daily range): BP systolic 104–132; BP diastolic 58–79; PULSE 7–80; RESP 16–18; TEMP 36.5–37.3; O2SAT 97–100
[2021-10-22] MEDS: Normal Saline Flush 10 ML SYR IVP (08:27)
[2021-10-22 08:35] LABS: Absolute Lymphocyte Count 0.06 10^3/uL (1.2-3.4); Absolute Monocyte Count 0.01 10^3/uL (0.1-0.8); HGB 7.1 g/dL (11.2-15.7); Lymphocytes % 66.7; MCH 29.2 pg (27.0-33.0); MCHC 34.3 % (32.0-36.0); MCV 85.2 fL (80-95); Monocytes % 11.1; Neutrophils % 22.2; Nucleated RBC 0 %; RBC 2.43 10^6/uL (3.93-5.22); RDW 14.4 % (11.7-14.6); RDW-SD 44.9 fL
[2021-10-22 08:47] LABS: WBC 0.09 10^3/uL (4.4-10.8)
[2021-10-22 08:48] LABS: Absolute Neutrophil Count 0.02 10^3/uL (1.2-6.7); HCT 20.7 % (36.0-46.0); Microcytosis 1+; Platelet Count 2 10^3/uL (130-400)
[2021-10-22 08:49] LABS: Diff Comment Diff Reviewed
[2021-10-24] MEDS: Normal Saline Flush 10 ML SYR IVP (08:14)
[2021-10-24 08:38] LABS: Abs Immature Grans 0.01 10^3/uL (0.0-0.06); Absolute Lymphocyte Count 0.06 10^3/uL (1.2-3.4); Absolute Monocyte Count 0.01 10^3/uL (0.1-0.8); HCT 27.9 % (36.0-46.0); HGB 9.7 g/dL (11.2-15.7); Immature Grans % 9.1; Lymphocytes % 54.5; MCH 29.9 pg (27.0-33.0); MCHC 34.8 % (32.0-36.0); MCV 86.1 fL (80-95); MPV 10.2 fL (8.0-11.0); Monocytes % 9.1; Neutrophils % 27.3; Nucleated RBC 0 %; RBC 3.24 10^6/uL (3.93-5.22); RDW 14.1 % (11.7-14.6)
[2021-10-24 08:43] LABS: RBC Morphology Normal
[2021-10-24 08:47] LABS: Platelet Count 7 10^3/uL (130-400); WBC 0.11 10^3/uL (4.4-10.8)
[2021-10-24 08:48] LABS: Absolute Neutrophil Count 0.03 10^3/uL (1.2-6.7); Diff Comment Diff Reviewed
[2021-10-24 08:51] VITALS: BP 118/57; PULSE 74; RESP 16; TEMP 36.6; O2SAT 96
[2021-10-24 12:51] VITALS: BP 127/58; PULSE 75; RESP 16; TEMP 36.5; O2SAT 98
[2021-10-26 08:43] LABS: Absolute Lymphocyte Count 0.07 10^3/uL (1.2-3.4); Absolute Monocyte Count 0.03 10^3/uL (0.1-0.8); HCT 25.8 % (36.0-46.0); Lymphocytes % 41.2; MCH 29.6 pg (27.0-33.0); MCHC 34.9 % (32.0-36.0); MCV 84.9 fL (80-95); MPV 10.9 fL (8.0-11.0); Monocytes % 17.6; Neutrophils % 41.2; Nucleated RBC 0 %; RBC 3.04 10^6/uL (3.93-5.22); RDW 14.2 % (11.7-14.6); RDW-SD 43.8 fL
[2021-10-26 08:53] LABS: Absolute Neutrophil Count 0.07 10^3/uL (1.2-6.7)
[2021-10-26 09:08] LABS: Platelet Count 12 10^3/uL (130-400); WBC 0.17 10^3/uL (4.4-10.8)
[2021-10-26 09:09] LABS: RBC Morphology Normal
[2021-10-26 09:10] VITALS: BP 127/58; PULSE 75; RESP 16; TEMP 36.5; O2SAT 98
[2021-10-26] MEDS: Normal Saline Flush 10 ML SYR IVP (13:33)
[2021-10-26 14:00] VITALS: BP 147/86; PULSE 73; RESP 20; TEMP 36.8; O2SAT 99
[2021-10-26 14:35] VITALS: BP 128/58; PULSE 73; RESP 20; TEMP 36.9; O2SAT 99
[2021-10-29] VITALS (8 sets, daily range): BP systolic 95–134; BP diastolic 52–70; PULSE 18–71; RESP 18; TEMP 36.1–36.9; O2SAT 97–100
[2021-10-29 08:11] LABS: HCT 23.4 % (36.0-46.0); HGB 8.3 g/dL (11.2-15.7); MCH 30.3 pg (27.0-33.0); MCHC 35.5 % (32.0-36.0); MCV 85.4 fL (80-95); MPV 11.5 fL (8.0-11.0); Nucleated RBC 0 %; RBC 2.74 10^6/uL (3.93-5.22); RDW 13.8 % (11.7-14.6); RDW-SD 43.6 fL
[2021-10-29 08:22] LABS: Absolute Lymphocyte Count 0.17 10^3/uL (1.2-3.4); Absolute Monocyte Count 0.04 10^3/uL (0.1-0.8)
[2021-10-29 08:23] LABS: Diff Comment Manual Differential; Platelet Count 10 10^3/uL (130-400); RBC Morphology Normal
[2021-10-29] MEDS: Normal Saline Flush 10 ML SYR IVP (14:11)
== END 2021-10-30 23:59 | disposition home or self-care (01) ==
LOC: INF 09:00
PROVIDERS: Nurse Practitioner Family; PCP Nurse Practitioner Family; Visit Provider Internal Medicine Hematology & Oncology
DX: D61.818 Other pancytopenia (principal); D46.9 Myelodysplastic syndrome, unspecified; R19.7 Diarrhea, unspecified; Z45.2 Encounter for adjustment and management of vascular access device
CPT/HCPCS: 36430; 36591; 80053; 86850; 86900; 86901; 86920; 86945; 87493; 87505; 96360; 96361; P9073; 85025; P9016; P9035

== ENCOUNTER 2021-11-29 09:00 | Outpatient (RCR) | payer MEDICARE, SELFPAY ==
[2021-10-31 00:09] VITALS: BP 115/54; PULSE 70; RESP 18; TEMP 36.4
[2021-11-01 08:10] LABS: HCT 26.4 % (36.0-46.0); HGB 9.2 g/dL (11.2-15.7); MCH 30.1 pg (27.0-33.0); MCHC 34.8 % (32.0-36.0); MCV 86.3 fL (80-95); MPV 9.2 fL (8.0-11.0); Nucleated RBC 0 %; RBC 3.06 10^6/uL (3.93-5.22); RDW 13.6 % (11.7-14.6); RDW-SD 42.9 fL
[2021-11-01 08:19] LABS: WBC 0.62 10^3/uL (4.4-10.8)
[2021-11-01 08:31] LABS: Platelet Count 7 10^3/uL (130-400)
[2021-11-01 08:32] LABS: Absolute Lymphocyte Count 0.14 10^3/uL (1.2-3.4); Absolute Monocyte Count 0.09 10^3/uL (0.1-0.8); Bands % 2; Diff Comment Manual Differential; RBC Morphology Normal
[2021-11-01 12:57] VITALS: BP 110/54; PULSE 74; RESP 18; TEMP 36.6; O2SAT 100
[2021-11-01] MEDS: Normal Saline Flush 10 ML SYR IVP (13:54)
[2021-11-01 14:14] VITALS: BP 111/68; PULSE 73; RESP 18; TEMP 36.8; O2SAT 100
[2021-11-05] VITALS (9 sets, daily range): BP systolic 111–126; BP diastolic 57–75; PULSE 65–75; RESP 12–18; TEMP 36.3–36.6; O2SAT 95–100
[2021-11-05] MEDS: Normal Saline Flush 10 ML SYR IVP ×2 (08:00→11:25)
[2021-11-05 08:17] LABS: HCT 23.7 % (36.0-46.0); HGB 8.3 g/dL (11.2-15.7); MCH 29.9 pg (27.0-33.0); MCV 85.3 fL (80-95); Nucleated RBC 0 %; RBC 2.78 10^6/uL (3.93-5.22); RDW 13.3 % (11.7-14.6); RDW-SD 41.9 fL
[2021-11-05 08:21] LABS: WBC 0.97 10^3/uL (4.4-10.8)
[2021-11-05 08:45] LABS: Platelet Count 4 10^3/uL (130-400)
[2021-11-05 08:46] LABS: Absolute Lymphocyte Count 0.25 10^3/uL (1.2-3.4); Absolute Monocyte Count 0.17 10^3/uL (0.1-0.8); Absolute Neutrophil Count 0.54 10^3/uL (1.2-6.7); Diff Comment Manual Differential; RBC Morphology Normal
[2021-11-07 13:47] LABS: HCT 27.5 % (36.0-46.0); HGB 9.5 g/dL (11.2-15.7); MCH 29.9 pg (27.0-33.0); MCHC 34.5 % (32.0-36.0); MCV 86.5 fL (80-95); MPV 10.3 fL (8.0-11.0); Nucleated RBC 0 %; RBC 3.18 10^6/uL (3.93-5.22); RDW 13.3 % (11.7-14.6); RDW-SD 42.2 fL
[2021-11-07 13:53] LABS: Platelet Count 8 10^3/uL (130-400); WBC 1.39 10^3/uL (4.4-10.8)
[2021-11-07 14:13] LABS: Absolute Lymphocyte Count 0.28 10^3/uL (1.2-3.4); Absolute Monocyte Count 0.22 10^3/uL (0.1-0.8); Absolute Neutrophil Count 0.89 10^3/uL (1.2-6.7); Diff Comment Manual Differential
[2021-11-07 14:31] VITALS: BP 125/52; PULSE 67; RESP 17; TEMP 36.8; O2SAT 100
[2021-11-07 15:00] VITALS: BP 117/68; PULSE 72; RESP 17; TEMP 36.8; O2SAT 98
[2021-11-09] MEDS: Normal Saline Flush 10 ML SYR IVP (08:06)
[2021-11-09 08:19] LABS: HCT 24.7 % (36.0-46.0); HGB 8.5 g/dL (11.2-15.7); MCH 29.9 pg (27.0-33.0); MCHC 34.4 % (32.0-36.0); MPV 11.4 fL (8.0-11.0); Nucleated RBC 0 %; RBC 2.84 10^6/uL (3.93-5.22); RDW 13.4 % (11.7-14.6); RDW-SD 42.4 fL
[2021-11-09 08:34] LABS: Platelet Count 15 10^3/uL (130-400); WBC 1.49 10^3/uL (4.4-10.8)
[2021-11-09 08:42] LABS: Absolute Lymphocyte Count 0.24 10^3/uL (1.2-3.4); Absolute Neutrophil Count 1.07 10^3/uL (1.2-6.7)
[2021-11-09 08:43] LABS: Absolute Monocyte Count 0.18 10^3/uL (0.1-0.8); Diff Comment Manual Differential; RBC Morphology Normal
[2021-11-09 13:35] VITALS: BP 104/51; PULSE 63; RESP 17; TEMP 36.8; O2SAT 99
[2021-11-09 13:57] VITALS: BP 115/54; PULSE 66; RESP 18; TEMP 36.9; O2SAT 99
[2021-11-12] VITALS (9 sets, daily range): BP systolic 98–124; BP diastolic 58–75; PULSE 63–73; RESP 16–18; TEMP 36.4–36.7; O2SAT 95–100
[2021-11-12] MEDS: Normal Saline Flush 10 ML SYR IVP ×2 (08:22→14:06)
[2021-11-12 08:36] LABS: HCT 23.5 % (36.0-46.0); HGB 8.1 g/dL (11.2-15.7); MCH 29.8 pg (27.0-33.0); MCHC 34.5 % (32.0-36.0); MCV 86.4 fL (80-95); MPV 9.6 fL (8.0-11.0); Nucleated RBC 0 %; RBC 2.72 10^6/uL (3.93-5.22); RDW 13.4 % (11.7-14.6); RDW-SD 41.5 fL; WBC 2.11 10^3/uL (4.4-10.8)
[2021-11-12 08:42] LABS: Platelet Count 10 10^3/uL (130-400)
[2021-11-12 08:50] LABS: Absolute Lymphocyte Count 0.17 10^3/uL (1.2-3.4); Absolute Monocyte Count 0.23 10^3/uL (0.1-0.8); Absolute Neutrophil Count 1.71 10^3/uL (1.2-6.7); Atypical Lymphocytes % 1; Bands % 1
[2021-11-12 08:51] LABS: Diff Comment Manual Differential; RBC Morphology Normal
[2021-11-15] MEDS: Normal Saline Flush 10 ML SYR IVP (09:36)
[2021-11-15 09:54] LABS: Abs Immature Grans 0.03 10^3/uL (0.0-0.06); Absolute Monocyte Count 0.22 10^3/uL (0.1-0.8); HCT 27.5 % (36.0-46.0); HGB 9.6 g/dL (11.2-15.7); MCH 29.7 pg (27.0-33.0); MCHC 34.9 % (32.0-36.0); MCV 85.1 fL (80-95); Nucleated RBC 0 %; RBC 3.23 10^6/uL (3.93-5.22); RDW 13.8 % (11.7-14.6); RDW-SD 42.3 fL
[2021-11-15 10:13] LABS: Absolute Basophil Count 0.04 10^3/uL (0.0-0.2); Absolute Eosinophil Count 0.04 10^3/uL (0.0-0.7); Absolute Lymphocyte Count 0.18 10^3/uL (1.2-3.4); Absolute Neutrophil Count 1.69 10^3/uL (1.2-6.7); Diff Comment Manual Differential; Metamyelocytes % 1
[2021-11-15 10:14] LABS: Polychromasia Present
[2021-11-15 10:17] LABS: Platelet Count 7 10^3/uL (130-400)
[2021-11-15 13:43] VITALS: BP 115/85; PULSE 74; RESP 18; TEMP 36.4; O2SAT 100
[2021-11-15 14:25] VITALS: BP 115/85; PULSE 74; RESP 18; TEMP 36.4; O2SAT 100
[2021-11-15 14:48] VITALS: BP 119/75; PULSE 74; RESP 18; TEMP 36.6; O2SAT 98
[2021-11-19] MEDS: Normal Saline Flush 10 ML SYR IVP ×2 (08:06→14:52)
[2021-11-19 09:20] LABS: HCT 25.3 % (36.0-46.0); HGB 8.7 g/dL (11.2-15.7); MCH 29.6 pg (27.0-33.0); MCHC 34.4 % (32.0-36.0); MCV 86.1 fL (80-95); RBC 2.94 10^6/uL (3.93-5.22)
[2021-11-19 09:21] LABS: RDW 13.9 % (11.7-14.6); RDW-SD 42.7 fL
[2021-11-19 09:22] LABS: Absolute Monocyte Count 0.28 10^3/uL (0.1-0.8); Absolute Neutrophil Count 1.69 10^3/uL (1.2-6.7); Bands % 3; Diff Comment Manual Differential; Metamyelocytes % 1; Platelet Count 5 10^3/uL (130-400); RBC Morphology Normal
[2021-11-19 09:32] LABS: WBC 2.19 10^3/uL (4.4-10.8)
[2021-11-19 14:27] VITALS: BP 109/58; PULSE 82; RESP 20; TEMP 37.1; O2SAT 98
[2021-11-19 14:46] VITALS: BP 132/75; PULSE 83; RESP 20; TEMP 37.2; O2SAT 98
[2021-11-22] VITALS (9 sets, daily range): BP systolic 96–126; BP diastolic 57–72; PULSE 66–78; RESP 16–20; TEMP 36.5–37.1; O2SAT 97–100
[2021-11-22] MEDS: Normal Saline Flush 10 ML SYR IVP (07:51)
[2021-11-22 07:58] LABS: HCT 24.1 % (36.0-46.0); HGB 8.1 g/dL (11.2-15.7); MCH 29.1 pg (27.0-33.0); MCHC 33.6 % (32.0-36.0); MCV 86.7 fL (80-95); Nucleated RBC 0 %; RBC 2.78 10^6/uL (3.93-5.22); RDW 14.5 % (11.7-14.6); RDW-SD 44.1 fL
[2021-11-22 08:10] LABS: Absolute Lymphocyte Count 0.09 10^3/uL (1.2-3.4); Absolute Monocyte Count 0.11 10^3/uL (0.1-0.8); Absolute Neutrophil Count 1.59 10^3/uL (1.2-6.7)
[2021-11-22 08:11] LABS: Diff Comment Manual Differential; RBC Morphology Normal
[2021-11-22 08:13] LABS: WBC 1.79 10^3/uL (4.4-10.8)
[2021-11-22 08:14] LABS: Platelet Count 6 10^3/uL (130-400)
[2021-11-26] MEDS: Normal Saline Flush 10 ML SYR IVP (08:14)
[2021-11-26 08:21] LABS: HCT 25.8 % (36.0-46.0); HGB 8.8 g/dL (11.2-15.7); MCH 28.8 pg (27.0-33.0); MCHC 34.1 % (32.0-36.0); MCV 84.3 fL (80-95); Nucleated RBC 0 %; RBC 3.06 10^6/uL (3.93-5.22); RDW 14.6 % (11.7-14.6); RDW-SD 43.9 fL
[2021-11-26 08:28] LABS: WBC 1.87 10^3/uL (4.4-10.8)
[2021-11-26 08:38] LABS: Absolute Eosinophil Count 0.04 10^3/uL (0.0-0.7); Absolute Lymphocyte Count 0.04 10^3/uL (1.2-3.4); Absolute Monocyte Count 0.13 10^3/uL (0.1-0.8); Absolute Neutrophil Count 1.63 10^3/uL (1.2-6.7); Bands % 1; Diff Comment Manual Differential; Myelocytes % 2; Platelet Count 4 10^3/uL (130-400)
[2021-11-26 08:39] LABS: RBC Morphology Normal
[2021-11-26 15:30] VITALS: BP 113/72; PULSE 74; RESP 18; TEMP 36.8; O2SAT 100
[2021-11-26 15:50] VITALS: BP 115/73; PULSE 75; RESP 16; TEMP 36.6; O2SAT 100
[2021-11-29] VITALS (11 sets, daily range): BP systolic 106–138; BP diastolic 50–77; PULSE 65–79; RESP 16–20; TEMP 36.3–36.9; O2SAT 95–100
[2021-11-29] MEDS: Normal Saline Flush 10 ML SYR IVP (08:04)
[2021-11-29 08:19] LABS: Abs Immature Grans 0.02 10^3/uL (0.0-0.06); MCH 28.9 pg (27.0-33.0); MCHC 33.5 % (32.0-36.0); MCV 86.2 fL (80-95); Nucleated RBC 0 %; RDW 14.7 % (11.7-14.6); RDW-SD 45.1 fL
[2021-11-29 08:59] LABS: Absolute Lymphocyte Count 0.22 10^3/uL (1.2-3.4); Absolute Monocyte Count 0.06 10^3/uL (0.1-0.8); Atypical Lymphocytes % 0; Bands % 0; Diff Comment Manual Differential; Metamyelocytes % 1; Myelocytes % 1; RBC Morphology Normal
[2021-11-29 09:07] LABS: HCT 21.8 % (36.0-46.0); HGB 7.3 g/dL (11.2-15.7); WBC 1.84 10^3/uL (4.4-10.8)
[2021-11-29 09:08] LABS: Absolute Neutrophil Count 1.53 10^3/uL (1.2-6.7); RBC 2.53 10^6/uL (3.93-5.22)
[2021-11-29 09:09] LABS: Platelet Count 6 10^3/uL (130-400)
== END 2021-11-30 23:59 | disposition home or self-care (01) ==
LOC: INF 09:00
PROVIDERS: PCP Nurse Practitioner Family; Visit Provider Internal Medicine Hematology & Oncology
DX: D61.818 Other pancytopenia (principal); Z45.2 Encounter for adjustment and management of vascular access device
CPT/HCPCS: 36430; 36591; 86850; 86900; 86901; 86920; 86945; P9073; 85025; P9016; P9035

== ENCOUNTER 2021-12-31 11:30 | Outpatient (RCR) | payer MEDICARE, SELFPAY ==
[2021-12-01 00:05] VITALS: BP 138/62; PULSE 65; RESP 17; TEMP 36.7
[2021-12-03] MEDS: Normal Saline Flush 10 ML SYR IVP (07:50)
[2021-12-03 07:58] LABS: HCT 28.1 % (36.0-46.0); HGB 9.4 g/dL (11.2-15.7); MCH 28.1 pg (27.0-33.0); MCHC 33.5 % (32.0-36.0); MCV 84.1 fL (80-95); Nucleated RBC 0 %; RBC 3.34 10^6/uL (3.93-5.22); RDW 15.4 % (11.7-14.6); RDW-SD 47.2 fL
[2021-12-03 08:12] LABS: Platelet Count 2 10^3/uL (130-400)
[2021-12-03 08:17] LABS: Absolute Eosinophil Count 0.02 10^3/uL (0.0-0.7); Absolute Lymphocyte Count 0.15 10^3/uL (1.2-3.4); Absolute Monocyte Count 0.13 10^3/uL (0.1-0.8); Absolute Neutrophil Count 1.58 10^3/uL (1.2-6.7); Atypical Lymphocytes % 1; Bands % 1; Myelocytes % 1
[2021-12-03 08:18] LABS: Diff Comment Manual Differential; Hypochromasia 1+; Microcytosis 1+
[2021-12-03 14:18] VITALS: BP 112/61; PULSE 69; RESP 18; TEMP 36.6; O2SAT 100
[2021-12-03 14:35] VITALS: BP 119/76; PULSE 73; RESP 18; TEMP 36.8; O2SAT 98
[2021-12-06 09:23] LABS: Abs Immature Grans 0.01 10^3/uL (0.0-0.06); Absolute Neutrophil Count 1.56 10^3/uL (1.2-6.7); HCT 25.7 % (36.0-46.0); HGB 8.5 g/dL (11.2-15.7); MCH 27.8 pg (27.0-33.0); MCHC 33.1 % (32.0-36.0); Nucleated RBC 0 %; RBC 3.06 10^6/uL (3.93-5.22); RDW-SD 46.3 fL
[2021-12-06 09:36] LABS: ALT 24 U/L (14-59); AST 17 U/L (15-37); Albumin 3.1 g/dL (3.4-5.0); Alkaline Phosphatase 103 U/L (46-116); Anion Gap 9.2 mmol/L (3-11); BUN 21 mg/dL (7-18); Bilirubin, Total 1.1 mg/dL (0.2-1.0); CO2 25.8 mmol/L (21.0-32.0); Calcium 8.5 mg/dL (8.5-10.1); Chloride 105 mmol/L (98-107); Estimated GFR 54.05 (mL/min/1.73m2); Glucose 130 mg/dL (74-106); Potassium 3.3 mmol/L (3.5-5.1); Sodium 140 mmol/L (136-145); Total Protein 7.4 g/dL (6.4-8.2)
[2021-12-06 09:47] LABS: Absolute Lymphocyte Count 0.19 10^3/uL (1.2-3.4); Atypical Lymphocytes % 1
[2021-12-06 09:48] LABS: Absolute Eosinophil Count 0.06 10^3/uL (0.0-0.7); Basophilic Stippling Present; Diff Comment Manual Differential; Hypochromasia 2+; Myelocytes % 1
[2021-12-06 09:51] LABS: Platelet Count 2 10^3/uL (130-400)
[2021-12-06 09:53] LABS: WBC 1.93 10^3/uL (4.4-10.8)
[2021-12-06 14:12] VITALS: BP 121/60; PULSE 74; RESP 18; TEMP 36.8; O2SAT 97
[2021-12-06 14:14] VITALS: BP 121/60; PULSE 74; RESP 17; TEMP 36.8; O2SAT 97
[2021-12-06 14:38] VITALS: BP 128/50; PULSE 78; RESP 18; TEMP 36.7; O2SAT 100
[2021-12-06] MEDS: Normal Saline Flush 10 ML SYR IVP (14:38)
[2021-12-10] VITALS (13 sets, daily range): BP systolic 99–127; BP diastolic 58–74; PULSE 74–82; RESP 16–18; TEMP 36.2–36.8; O2SAT 16–100
[2021-12-10] MEDS: Normal Saline Flush 10 ML SYR IVP (08:09)
[2021-12-10 08:22] LABS: HCT 21.1 % (36.0-46.0); HGB 7.1 g/dL (11.2-15.7); MCH 27.7 pg (27.0-33.0); MCHC 33.6 % (32.0-36.0); MCV 82.4 fL (80-95); Nucleated RBC 0 %; RBC 2.56 10^6/uL (3.93-5.22); RDW 15.2 % (11.7-14.6); RDW-SD 45.6 fL
[2021-12-10 08:25] LABS: WBC 1.95 10^3/uL (4.4-10.8)
[2021-12-10 08:46] LABS: Absolute Lymphocyte Count 0.18 10^3/uL (1.2-3.4); Absolute Monocyte Count 0.08 10^3/uL (0.1-0.8); Atypical Lymphocytes % 3; Diff Comment Manual Differential; Platelet Count 2 10^3/uL (130-400); RBC Morphology Normal
[2021-12-13] MEDS: Normal Saline Flush 10 ML SYR IVP (08:04)
[2021-12-13 08:31] LABS: Abs Immature Grans 0.04 10^3/uL (0.0-0.06); Absolute Eosinophil Count 0.01 10^3/uL (0.0-0.7); Absolute Lymphocyte Count 0.29 10^3/uL (1.2-3.4); Absolute Monocyte Count 0.17 10^3/uL (0.1-0.8); Absolute Neutrophil Count 1.44 10^3/uL (1.2-6.7); Eosinophils % 0.5; Immature Grans % 2.1; Lymphocytes % 14.9; MCH 28.4 pg (27.0-33.0); MCV 86.1 fL (80-95); MPV 8.7 fL (8.0-11.0); Monocytes % 8.7; Neutrophils % 73.8; Nucleated RBC 0 %; RBC 3.17 10^6/uL (3.93-5.22); RDW 15.1 % (11.7-14.6); RDW-SD 48.1 fL
[2021-12-13 08:40] LABS: WBC 1.95 10^3/uL (4.4-10.8)
[2021-12-13 08:41] LABS: HCT 27.3 % (36.0-46.0); Platelet Count 3 10^3/uL (130-400)
[2021-12-13 08:43] LABS: ALT 19 U/L (14-59); AST 17 U/L (15-37); Albumin 2.9 g/dL (3.4-5.0); Alkaline Phosphatase 98 U/L (46-116); BUN 19 mg/dL (7-18); Bilirubin, Total 1.4 mg/dL (0.2-1.0); Calcium 8.6 mg/dL (8.5-10.1); Chloride 100 mmol/L (98-107); Estimated GFR 54.05 (mL/min/1.73m2); Glucose 103 mg/dL (74-106); Potassium 3.8 mmol/L (3.5-5.1); Sodium 134 mmol/L (136-145); Total Protein 7.4 g/dL (6.4-8.2)
[2021-12-13 08:58] LABS: Diff Comment Agrees w/ Instrument; Poikilocytes 1+
[2021-12-13 14:00] VITALS: BP 105/66; PULSE 78; RESP 18; TEMP 37; O2SAT 99
[2021-12-13 14:30] VITALS: BP 123/73; PULSE 80; RESP 18; TEMP 36.9; O2SAT 99
[2021-12-17] VITALS (7 sets, daily range): BP systolic 98–132; BP diastolic 53–76; PULSE 73–89; RESP 17–18; TEMP 36.4–36.8; O2SAT 98–100
[2021-12-17 08:20] LABS: HCT 23.5 % (36.0-46.0); HGB 7.8 g/dL (11.2-15.7); MCH 28.4 pg (27.0-33.0); MCHC 33.2 % (32.0-36.0); MCV 85.5 fL (80-95); Nucleated RBC 0 %; RBC 2.75 10^6/uL (3.93-5.22); RDW 15.1 % (11.7-14.6); RDW-SD 47.3 fL
[2021-12-17 08:32] LABS: WBC 1.73 10^3/uL (4.4-10.8)
[2021-12-17 08:47] LABS: Absolute Eosinophil Count 0.02 10^3/uL (0.0-0.7); Absolute Lymphocyte Count 0.14 10^3/uL (1.2-3.4); Absolute Neutrophil Count 1.45 10^3/uL (1.2-6.7); Bands % 1; Diff Comment Manual Differential; Other Cells % 7; Platelet Count 2 10^3/uL (130-400); RBC Morphology Normal
[2021-12-17] MEDS: Normal Saline Flush 10 ML SYR IVP (08:49)
[2021-12-20] MEDS: Normal Saline Flush 10 ML SYR IVP (08:08)
[2021-12-20 08:10] LABS: HCT 26.4 % (36.0-46.0); HGB 8.8 g/dL (11.2-15.7); MCH 28.8 pg (27.0-33.0); MCHC 33.3 % (32.0-36.0); MCV 86.3 fL (80-95); Nucleated RBC 0 %; RBC 3.06 10^6/uL (3.93-5.22); RDW 14.7 % (11.7-14.6); RDW-SD 46.9 fL; WBC 2.03 10^3/uL (4.4-10.8)
[2021-12-20 08:47] LABS: Absolute Lymphocyte Count 0.32 10^3/uL (1.2-3.4); Absolute Monocyte Count 0.16 10^3/uL (0.1-0.8); Absolute Neutrophil Count 1.48 10^3/uL (1.2-6.7); Bands % 1; Platelet Count 3 10^3/uL (130-400)
[2021-12-20 08:48] LABS: Diff Comment Manual Differential
[2021-12-20 08:50] LABS: Poikilocytes 1+
[2021-12-20 08:51] LABS: Other Cells % 3
[2021-12-20 14:05] VITALS: BP 119/64; PULSE 86; RESP 17; TEMP 36.6; O2SAT 100
[2021-12-20 14:35] VITALS: BP 116/55; PULSE 86; RESP 17; TEMP 37; O2SAT 100
[2021-12-24] MEDS: Normal Saline Flush 10 ML SYR IVP ×2 (08:00→12:00)
[2021-12-24 08:14] LABS: Abs Immature Grans 0.07 10^3/uL (0.0-0.06); HCT 21.3 % (36.0-46.0); HGB 7.1 g/dL (11.2-15.7); MCH 28.4 pg (27.0-33.0); MCHC 33.3 % (32.0-36.0); MCV 85.2 fL (80-95); Nucleated RBC 0 %; RDW 14.6 % (11.7-14.6); RDW-SD 45.8 fL
[2021-12-24 08:29] LABS: Platelet Count 3 10^3/uL (130-400)
[2021-12-24 08:30] LABS: WBC 1.99 10^3/uL (4.4-10.8)
[2021-12-24 08:37] LABS: Bands % 4
[2021-12-24 08:38] LABS: Absolute Monocyte Count 0.08 10^3/uL (0.1-0.8); Absolute Neutrophil Count 1.67 10^3/uL (1.2-6.7); Atypical Lymphocytes % 2; Diff Comment Manual Differential; Metamyelocytes % 1; Myelocytes % 1; Poikilocytes 1+
[2021-12-24 11:50] VITALS: BP 123/58; PULSE 82; RESP 18; TEMP 36.7; O2SAT 100
[2021-12-24 12:15] VITALS: BP 119/51; PULSE 77; RESP 16; TEMP 37.2; O2SAT 99
[2021-12-24 12:50] VITALS: BP 136/56; PULSE 78; RESP 18; TEMP 36.9; O2SAT 99
[2021-12-24 13:20] VITALS: BP 111/68; PULSE 78; RESP 16; TEMP 37.2; O2SAT 98
[2021-12-24 14:15] VITALS: BP 107/72; PULSE 78; RESP 16; TEMP 37; O2SAT 98
[2021-12-24 14:40] VITALS: BP 115/70; PULSE 80; RESP 18; TEMP 37.3; O2SAT 99
[2021-12-27] VITALS (7 sets, daily range): BP systolic 103–126; BP diastolic 53–75; PULSE 76–86; RESP 16–17; TEMP 36.4–36.8; O2SAT 96–98
[2021-12-27] MEDS: Normal Saline Flush 10 ML SYR IVP (08:06)
[2021-12-27 08:26] LABS: HCT 24.2 % (36.0-46.0); MCH 29.6 pg (27.0-33.0); MCHC 33.1 % (32.0-36.0); MCV 89.6 fL (80-95); Nucleated RBC 0 %; RDW 15.8 % (11.7-14.6); RDW-SD 51.7 fL
[2021-12-27 08:48] LABS: Absolute Lymphocyte Count 0.25 10^3/uL (1.2-3.4); Absolute Monocyte Count 0.02 10^3/uL (0.1-0.8); Absolute Neutrophil Count 1.45 10^3/uL (1.2-6.7); Bands % 0; Metamyelocytes % 3; Myelocytes % 3
[2021-12-27 08:49] LABS: Diff Comment Manual Differential; Other Cells % 4
[2021-12-27 08:50] LABS: Poikilocytes 1+
[2021-12-27 08:56] LABS: WBC 1.91 10^3/uL (4.4-10.8)
[2021-12-27 08:57] LABS: Platelet Count 2 10^3/uL (130-400)
[2021-12-31] VITALS (7 sets, daily range): BP systolic 104–124; BP diastolic 65–72; PULSE 71–83; RESP 17; TEMP 36.6–37.1; O2SAT 96–99
[2021-12-31] MEDS: Normal Saline Flush 10 ML SYR IVP (08:08)
== END 2021-12-31 23:59 | disposition home or self-care (01) ==
LOC: INF 11:30
PROVIDERS: PCP Nurse Practitioner Family; Visit Provider Internal Medicine Hematology & Oncology
DX: D61.818 Other pancytopenia (principal); Z45.2 Encounter for adjustment and management of vascular access device; D46.9 Myelodysplastic syndrome, unspecified
CPT/HCPCS: 36430; 36591; 80053; 86850; 86900; 86901; 86920; P9073; 85025; P9016; P9035

== ENCOUNTER 2022-01-07 08:08 | Inpatient (IN) | payer MEDICARE, SELFPAY ==
[2022-01-07] VITALS (26 sets, daily range): BP systolic 91–138; BP diastolic 41–86; PULSE 80–98; RESP 12–22; TEMP 36.6–37.9; O2SAT 98–100
--- NOTE | 2022-01-07 08:00 | RT.EKG_ITS ---
APPROVED REPORT Exam: Resting ECG Reason for Exam: weakness Patient Location: E HR:89 bpm ECG Measurements Heart Rate 89 AXIS VA 183 P 49 QRSd 151 QRS 6 QT 409 T 123 QTc 497 Conclusion Sinus rhythm...normal P axis, V-rate 60- 99 Left bundle branch block...QRSd>120, broad/notched R ST elevation secondary to IVCD...Multiple VCG criteria sinus rhythm at 89, normal axis, left bundle branch block seen on prior, does not meet Bryannaa crit eria for STEMI, nondiagnostic EKG
--- NOTE | 2022-01-07 08:15 | DI.RAD_ITS ---
Exam(s) XR PORTABLE CHEST AP EXAM: XR PORTABLE CHEST AP CLINICAL HISTORY: SOB. TECHNIQUE: 2D digital imaging was performed. COMPARISON: CR,XR XR PORTABLE CHEST AP from 10/15/2021 FINDINGS: Again noted is an aortic valve TAVR. Heart size is normal, unchanged. Mediastinum not widened Previously described right upper lobe infiltrate appears improved. No new confluent infiltrates nor pleural effusions. There appears to be a pulmonary venous hypertension pattern but no airspace pulmo nary edema. Distal tip of the right supra clavi in Port-A-Cath remains at the SVC-RA junction. IMPRESSION: As above. Improved appearance of the previously described right sub apical lung infiltrate.No pleura l effusions. Aortic TAVR again evident DATA REPOSITORY: RADIATION DOSE DELIVERED: All CT scans at this facility use at least one of these dose optimization techniques: automated exposure control; mA and/or kV adjustment per patient size (includes targeted e xams where dose is matched to clinical indication); or iterative reconstruction.
--- NOTE | 2022-01-07 08:27 | W.ED.GENAD ---
Discharge Plan Disposition Patient Disposition: [facility] INPATIENT Condition: Fair Discharge Details Clinical Impression: Anemia, Thrombocytopenia Admit Date/Time: 01/12/22 09:05 Admit Provider: Jose Hayes Attending Provider: Jose Hayes Primary Care Provider: Tiana Romano ED Provider: Stephie Jones Discharge Data Discharge Date/Time-TO BE ENTERED AT DEPARTURE: 01/07/22 12:25 Medical Decision Making Polina Alvarado is a 76-year-old woman with a history of AML, hypertension, aortic stenosis status post TAVR, breast cancer in the past, colon cancer in the past receiving blood transfusions every Friday and presenting to the emergency department with generalized weakness, shortness of breath. Patient reports that for the last 2 to 3 days she has felt generally weak and quite short of breath with any exertion. She received her blood transfusion as usual last and is due for blood transfusion again today. Patient reports that she has been taking her medications as usual. She denies pain, fever, cough, diarrhea, constipation, bleeding, focal weakness, numbness, rash. Reports orthopnea, nausea, one episode of emesis yesterday. Somewhat poor p.o. intake. Patient reports that she has not been on chemotherapy for at least 3 months as she was not tolerating it. On exam Pt is well and non-toxic appearing. LCTAB. Concern for anemia, PNA, CHF, ACS, PE, other. Exam/hx at this time not c/w acute aortic process, sepsis. Plan for EKG, CXR, screening labs, telemetry, IV placement, will monitor and reassess. Labs reviewed, Hgb 5.7, WBC 1.39, platelets 3, d-dimer elevated. 2 units PRBCs, 1 unit plts ordered, Pt consented. At this time given severe anemia, do not suspect PE as liekly, will defer CT chest. Plan for admission for further treatment/eval. Medical Records Medical records reviewed: Yes I reviewed the patient's medical records. Imaging Data Radiologic Study: Attestation: I personally reviewed and interpreted this imaging study as follows: Radiologist's impression: EXAM:? XR PORTABLE CHEST AP CLINICAL HISTORY: ? SOB. ? TECHNIQUE:? 2D digital imaging was performed. COMPARISON:? CR,XR XR PORTABLE CHEST AP from 10/15/2021 FINDINGS: Again noted is an aortic valve TAVR.? Heart size is normal, unchanged.? Mediastinum not widened Previously described right upper lobe infiltrate appears improved.? No new confluent infiltrates nor pleural effusions.? There appears to be a pulmonary venous hypertension pattern but no airspace pulmonary edema. Distal tip of the right supra clavi in Port-A-Cath remains at the SVC-RA junction. IMPRESSION: As above.? Improved appearance of the previously described right sub apical lung infiltrate.No pleural effusions. Aortic TAVR again evident Lab Data Lab results reviewed: Yes I reviewed the patient's lab results. ECG Data Attestation: I personally reviewed and interpreted this ECG (s) as follows: Interpretation: EKG shows sinus rhythm at 89, normal axis, left bundle branch block seen on prior, does not meet Sgarbossa criteria for STEMI, nondiagnostic EKG HPI General Mode of arrival: EMS. Date/Time Provider Initiated Documentation: 01/07/22 08:12. Limitations to Documentation: no limitations. Information obtained by: patient, RN notes reviewed and old records reviewed. HPI Narrative: Polina Alvarado is a 76-year-old woman with a history of AML, hypertension, aortic stenosis status post TAVR, breast cancer in the past, colon cancer in the past receiving blood transfusions every Friday and presenting to the emergency department with generalized weakness, shortness of breath. Patient reports that for the last 2 to 3 days she has felt generally weak and quite short of breath with any exertion. She received her blood transfusion as usual last and is due for blood transfusion again today. Patient reports that she has been taking her medications as usual. She denies pain, fever, cough, diarrhea, constipation, bleeding, focal weakness, numbness, rash. Reports orthopnea, nausea, one episode of emesis yesterday. Somewhat poor p.o. intake. Patient reports that she has not been on chemotherapy for at least 3 months as she was not tolerating it. Related Data Home Medications Medication Instructions Recorded Confirmed metoprolol succinate 25 mg 12.5 mg PO BID #30 tab 04/16/20 01/16/22 tablet,extended release 24 hr acetaminophen 500 mg tablet 1,000 mg PO TID PRN tab 08/30/20 01/16/22 (Tylenol Extra Strength) loperamide 2 mg tablet (Imodium 2 mg PO QID PRN #60 tab 09/01/20 01/16/22 A-D) acyclovir 400 mg tablet 400 mg PO BID #60 tab 09/03/21 01/16/22 phenol 1.4 % mucosal aerosol spray 180 ml MUCOUS MEMBRANE QID PRN PRN 09/03/21 01/16/22 (Sore Throat (phenol)) #0 ml ondansetron 4 mg disintegrating 4 mg PO Q8H PRN #12 tab 09/06/21 01/16/22 tablet folic acid 1 mg tablet 1 mg PO DAILY #0 tab 01/16/22 01/16/22 omeprazole 40 mg capsule,delayed 40 mg PO BID #30 cap 01/16/22 01/16/22 release oxycodone 5 mg tablet 5 - 10 mg PO Q4H PRN #10 tab MDD 50 01/16/22 01/16/22 Previous Rx's Medication Instructions Recorded metoprolol succinate 25 mg 12.5 mg PO BID #30 tab 04/16/20 tablet,extended release 24 hr loperamide 2 mg tablet (Imodium 2 mg PO QID PRN #60 tab 09/01/20 A-D) acyclovir 400 mg tablet 400 mg PO BID #60 tab 09/03/21 phenol 1.4 % mucosal aerosol spray 180 ml MUCOUS MEMBRANE QID PRN PRN 09/03/21 (Sore Throat (phenol)) #0 ml ondansetron 4 mg disintegrating 4 mg PO Q8H PRN #12 tab 09/06/21 tablet folic acid 1 mg tablet 1 mg PO DAILY #0 tab 01/16/22 omeprazole 40 mg capsule,delayed 40 mg PO BID #30 cap 01/16/22 release oxycodone 5 mg tablet 5 - 10 mg PO Q4H PRN #10 tab MDD 50 01/16/22 Allergies Allergy/AdvReac Type Severity Reaction Status Date / Time morphine Allergy Intermediate Hives Unverified 10/14/21 15:35 General Stated Complaint: Dizzy/Sync JEANIE: 3 Review of Systems Narrative: Constitutional: denies fevers, reports generalized weakness Eyes: denies eye pain ENT: denies ear pain, dental pain, sore throat Cardiovascular: denies chest pain, edema Respiratory: denies cough, reports orthopnea, dyspnea on exertion GI: denies abdominal pain, diarrhea, reports vomiting : denies flank pain MSK: denies back pain, neck pain, arthralgias, myalgias Skin: denies rash Neuro: denies headaches, numbness, localized weakness 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) willing to take oxycodone for pain and dyspnea Dyspnea (Acute) POLST (Physician Orders for Life-Sustaining Treatment) (Acute) signed 01/16/22 Comfort measures only status (Acute) senior care resident (Acute) Pneumonia (Acute) DNI (do not intubate) (Acute) DNR (do not resuscitate) (Acute) Epistaxis (Acute) Pancytopenia (Acute) AML (acute myeloblastic leukemia) (Acute) Odynophagia (Acute) Palliative care patient (Acute) Leukemia (Chronic) Lung infiltrate (Acute) Breast mass (Chronic) Thrombocytopenia (Chronic) Fever and neutropenia (Acute) GI bleeding (Acute) Abnormal CT of the chest (Acute) Pancytopenia (Acute) Dyspnea on exertion (Chronic) S/P recurrent ventral herniorrhaphy (Acute) pt has [id number] polypropalene mesh implanted S/P right hemicolectomy (Chronic) Diarrhea (Acute) GERD (gastroesophageal reflux disease) (Acute) S/p TAVR (transcatheter aortic valve replacement), bioprosthetic (Acute) Hypertension (Chronic) History of aortic valve replacement with bioprosthetic valve (Acute) Medical History Acute CHF prior to TAVR. none since then Advance directive on file Anemia Aortic stenosis, severe s/p TAVR Factitious hyperthyroidism H/O malignant neoplasm of breast H/O malignant neoplasm of colon Hypertension Hypertension Hypomagnesemia Normocytic anemia Severe aortic stenosis s/p TAVR UTI (urinary tract infection) Surgical History H/O cardiac catheterization H/O colonoscopy H/O heart valve replacement with porcine valve History of esophagogastroduodenoscopy (EGD) History of ventral hernia repair 07/01/19 at [facility] [place] cholecystectomy Status post closure of ileostomy Status post right breast lumpectomy Family History Mother Stroke Hypertension Son Diabetes type 2 Son Diabetes type 2 Father Cancer lung cancer - smoker Brother Cancer unknown type Son No problems noted. Social History (Updated 01/16/22 @ 15:39 by Dorinda Beck MD) Smoking/Tobacco Use Status: Former Tobacco Use Pack-years: 141 Tobacco: How many years used: 47 Smoking risk assessment performed?: Yes Alcohol Intake: former Drug use: Never Substance use type: does not use Caregiver/Support person: Yes Household members: none and other Details: moved into rehab on 01/16/22 Housing: snf Number of Children: 3 number of grandchildren: 2 Communication Needs: Hard of Hearing and Corrective Lenses Education Level: high school Do you need help understanding health information?: Always Current gender identity: female What is your relationship status?: Panel score (0-1 are the most socially isolated patients): 0 What type of physical activity do you participate in: none and sedentary lifestyle Frequency: does not exercise Special trung needs: No Agree to transfusion: No (as of her 01/15/22 visit) Seatbelt use: always Working smoke detector in home: Yes Fire extinguisher in home: Yes Do you feel safe at home: Yes Do you feel safe in your relationship?: Yes Additional Social history: Polina usually lives with her son Martínez, his SO and their daughter, to whom Polina is very close. This granddaughter functions at about a 10-12 yo child level, per her father, though she is 22. She is very germ-phobic and afraid of hospitals. Polina told me that her granddaughter has already said good-bye to her. Polina is aware that her days are coming to an end. She wants to be comfortable. She doesn't want to be a burden to her family. She would like to go to Rehab. She is afraid of having diarrhea and needing cleaning up in the middle of the night. She doesn't want her son to have to do this for her, though he says he would be willing. Whenever her platelets drop, she bleeds from her nose and from her bowels. She would rather nurses and LNAs care for her than her family. She was happy with the care her received at the rehab, from their staff and from hospice. She says in the past she had Choices for Care. She doesn't know if she still has it. She thinks she might still be eligible. IF she can have her insurance cover hospice, she would want it. But she can't afford to pay for room and board at rehab on her own. She wants to have Pall Care follow her at Rehab when she goes there on comfort measures. She filled out and signed her COLST form on 01/16: DNR/DNI, do not transfer, ok for abx and for IVF IF they bring her comfort. Exam Narrative Exam Narrative: Constitutional: well and [id number], pleasant, conversing normally HENT: head atraumatic/normocephalic/normal inspection, mucous membranes moist Eyes: conjunctiva normal, sclera normal, pupils 3mm b/l Neck: no stridor, normal ROM, trachea midline Chest: normal inspection Resp: normal work of breathing, LCTAB Cardio: normal rate, normal rhythm GI: abdomen soft, non-tender, non-distended Back: normal inspection, no rash Skin: warm, dry, normal color, ecchymoses b/l forearms and petechiae b/l LEs Pt reports as chronic and unchanged Neuro: alert, not altered, grossly non-focal, normal tone Ext: no edema Psych: normal mood, normal affect, normal behavior Course Vital Signs Vital signs: Vital Signs Temperature 37.2 C 01/07/22 08:08 Pulse 90 01/07/22 08:08 Respiratory Rate 16 01/07/22 08:08 Blood Pressure 138/50 L 01/07/22 08:08 Pulse Oximetry 100 01/07/22 08:08 Temperature 37.2 C 01/07/22 08:08 Temperature Source Temporal Artery Scan 01/07/22 08:08 Pulse 90 01/07/22 08:08 Respiratory Rate 16 01/07/22 08:15 Respiratory Effort Non-Labored 01/07/22 08:15 Respiratory Depth Normal 01/07/22 08:15 Respiratory Pattern Normal 01/07/22 08:15 Blood Pressure 138/50 L 01/07/22 08:08 Blood Pressure Position Supine 01/07/22 08:08 Pulse Oximetry 100 01/07/22 08:08 Oxygen Delivery Method Nasal Cannula 01/07/22 08:08 Oxygen Flow Rate 0 01/07/22 08:08 Pain Level 0 01/07/22 08:08 Lab/Test Results Lab/Test Results: 01/07/22 08:22 Blood Blood Culture - Pending 01/07/22 08:22 Blood Blood Culture - Pending
[2022-01-07 08:44] LABS: Lactate 1.7 mmol/L (0.6-1.4)
[2022-01-07 08:48] LABS: MCH 28.1 pg (27.0-33.0); MCHC 32.6 % (32.0-36.0); MCV 86.2 fL (80-95); MPV 9.9 fL (8.0-11.0); Nucleated RBC 0 %; RBC 2.03 10^6/uL (3.93-5.22); RDW-SD 47.6 fL
[2022-01-07 08:52] LABS: HCT 17.5 % (36.0-46.0); HGB 5.7 g/dL (11.2-15.7); WBC 1.39 10^3/uL (4.4-10.8)
[2022-01-07 08:57] LABS: Magnesium 1.8 mg/dL (1.8-2.4)
[2022-01-07 09:09] LABS: ALT 45 U/L (14-59); AST 57 U/L (15-37); Albumin 2.4 g/dL (3.4-5.0); Alkaline Phosphatase 89 U/L (46-116); Anion Gap 8.8 mmol/L (3-11); BUN 31 mg/dL (7-18); Bilirubin, Total 0.7 mg/dL (0.2-1.0); CO2 24.2 mmol/L (21.0-32.0); Calcium 8.7 mg/dL (8.5-10.1); Chloride 103 mmol/L (98-107); Estimated GFR 54.05 (mL/min/1.73m2); Glucose 121 mg/dL (74-106); NT-proBNP 2015 pg/mL (<300); Potassium 3.6 mmol/L (3.5-5.1); Sodium 136 mmol/L (136-145); TSH (W/Ref FT4) 0.92 uIU/mL (0.36-3.74); Total Protein 6.6 g/dL (6.4-8.2); Troponin I < 50 ng/L (<or=60)
[2022-01-07 09:10] LABS: Source Nasal/Nares
[2022-01-07 09:13] LABS: Absolute Lymphocyte Count 0.17 10^3/uL (1.2-3.4); Absolute Monocyte Count 0.04 10^3/uL (0.1-0.8); Absolute Neutrophil Count 0.83 10^3/uL (1.2-6.7); Atypical Lymphocytes % 1; Other Cells % 25
[2022-01-07 09:14] LABS: Diff Comment Manual Differential; Platelet Count 3 10^3/uL (130-400); RBC Morphology Normal
[2022-01-07 09:22] LABS: D-Dimer 1261 ng/mlFEU (<500)
[2022-01-07 12:26] LABS: COVID-19 PCR Negative (Negative)
--- NOTE | 2022-01-07 13:12 | W.PM.HP.N ---
Date of service: 01/07/22 Time of Service: 13:17 Assessment and Plan Assessment and plan (1) Pancytopenia: Status: Acute Assessment and plan: Secondary to AML. Requiring more frequent transfusions of RBCs and platelets. 2 units RBCs ordered. 1 unit of platelets ordered. No evidence of infection / afebrile. Monitor lab. (2) AML (acute myeloblastic leukemia): Status: Acute Assessment and plan: Dxd in Aug. Secondary to previous cancer treatments (breast and colon). Conts to be followed by oncology at [facility] [place] (3) Palliative care patient: Status: Acute Assessment and plan: Will consult palliative to clarify her goals of care and code status. History of Present Illness History of Present Illness Chief Complaint: Shortness of breath and generalized weakness Narrative: This is a 76 yo female with a PMH of acute myeloid leukemia, colon CA, breast CA, HTN, aortic stenosis s/p TAVR. She receives pRBC and platelet transfusions routinely on Mondays and . She presented to the ED with c/o 2-3 days of feeling more weak/tired, short of air and nauseated. No emesis/diarrhea. No F/C, cough/sputum. No melena/hematochezia/hemetemesis. In the ED her Hgb was 5.7. WBC 1.39. Platelets 3. She has standing orders for 2 units of pRBCs for Hgb at this level and 1 unit of platelets for platelets at this level. Those were ordered and the infusions initiated in the ED. Her presenting BP was 138/50. Pulse 90. RA O2 saturations of 100%. T 37.2. Review of Systems All systems reviewed & are unremarkable except as noted in HPI and below PFSH All Active Problems Neutropenic fever (Acute) Pancytopenia (Acute) Discharge planning issues (Acute) DVT prophylaxis (Acute) AML (acute myeloblastic leukemia) (Acute) Odynophagia (Acute) Palliative care patient (Acute) Leukemia (Chronic) Lung infiltrate (Acute) Breast mass (Chronic) Thrombocytopenia (Chronic) Fever and neutropenia (Acute) GI bleeding (Acute) Abnormal CT of the chest (Acute) Pancytopenia (Acute) Dyspnea on exertion (Acute) S/P recurrent ventral herniorrhaphy (Acute) pt has [id number] polypropalene mesh implanted S/P right hemicolectomy (Chronic) Diarrhea (Acute) GERD (gastroesophageal reflux disease) (Acute) Adenocarcinoma of right breast (Acute) s/p Lumpectomy S/p TAVR (transcatheter aortic valve replacement), bioprosthetic (Acute) Cancer of ascending colon metastatic to intra-abdominal lymph node (Acute) S/p Right hemicolectomy Hypertension (Chronic) History of aortic valve replacement with bioprosthetic valve (Acute) Medical History Acute CHF prior to TAVR. none since then Advance directive on file Anemia Aortic stenosis, severe s/p TAVR Factitious hyperthyroidism H/O malignant neoplasm of breast H/O malignant neoplasm of colon Hypertension Hypertension Hypomagnesemia Normocytic anemia Severe aortic stenosis s/p TAVR UTI (urinary tract infection) Surgical History H/O cardiac catheterization H/O colonoscopy H/O heart valve replacement with porcine valve History of esophagogastroduodenoscopy (EGD) History of ventral hernia repair 07/01/19 at [facility] [place]/P cholecystectomy Status post closure of ileostomy Status post right breast lumpectomy Family History Mother Stroke Hypertension Son Diabetes type 2 Son Diabetes type 2 Father Cancer lung cancer - smoker Brother Cancer unknown type Social History Smoking/Tobacco Use Status: Former Tobacco Use Pack-years: 141 Tobacco: How many years used: 47 Smoking risk assessment performed?: Yes Alcohol Intake: former Drug use: Never Substance use type: does not use Current gender identity: female Do you feel safe at home: Yes Do you feel safe in your relationship?: Yes Meds Allergies and Home Medications Allergies Allergy/AdvReac Type Severity Reaction Status Date / Time morphine Allergy Intermediate Hives Unverified 10/14/21 15:35 Home Medications Medication Instructions Recorded Confirmed Type metoprolol succinate 12.5 mg PO BID #30 tab 04/16/20 01/07/22 Rx acetaminophen 500 mg tablet 1,000 mg PO TID PRN tab 08/30/20 01/07/22 History loperamide 2 mg tablet 2 mg PO QID PRN #60 tab 09/01/20 01/07/22 Rx omeprazole 40 mg capsule,delayed 40 mg PO DAILY #30 cap 10/04/20 01/07/22 Rx release Sore Throat (phenol) 180 ml MUCOUS MEMBRANE QID PRN PRN 09/03/21 01/07/22 Rx #0 ml acyclovir 400 mg PO BID #60 tab 09/03/21 01/07/22 Rx nystatin 1 applic TOPICAL TID #60 g 09/03/21 01/07/22 Rx ondansetron 4 mg PO Q8H PRN #12 tab 09/06/21 01/07/22 Rx Exam Const General: cooperative and no acute distress Nutritional Appearance: overweight Orientation: alert and oriented x3 Eyes General: appearance normal, both eyes and all related structures Conjunctivae: conjunctival abnormality (pale palpebral conjunctivae) Sclera: sclerae normal and scleral abnormality Neck Neck: full ROM and no JVD Resp Effort & Inspection: normal respiratory effort Auscultation: clear to auscultation bilaterally Cardio Rate: regular rate Rhythm: regular rhythm Heart Sounds: S1 normal and S2 normal GI Palpation: soft and nontender Auscultation: normal bowel sounds Skin General skin exam: ecchymosis (scattered on both arms. ) and pallor Neuro General: no focal motor deficits Cognition: normal cognition Speech: speech normal Extrem General: no pedal edema and no calf tenderness Psych Appearance: grossly normal Mental Status: mental status grossly normal Mood: congruent mood Affect: normal affect Results Labs Result diagrams: 01/07/22 08:35 01/07/22 08:35 Labs: Laboratory Results - last 24 hr 01/07/22 01/07/22 01/07/22 08:35 08:35 08:35 WBC RBC Hgb Hct MCV MCH MCHC RDW Plt Count MPV Immature Gran % Neutrophils % Lymphocytes % Atypical Lymphs % Monocytes % Eosinophils % Basophils % Other Cells % Nucleated RBC % Absolute Neutrophils Absolute Lymphocytes Absolute Monocytes Absolute Eosinophils Absolute Basophils RBC Morphology D-Dimer 1261 H VBG Lactate 1.7 H Sodium 136 Potassium 3.6 Chloride 103 Carbon Dioxide 24.2 Anion Gap 8.8 BUN 31 H Creatinine 1.0 Estimated GFR/1.73 m2 54.05 Glucose 121 H Calcium 8.7 Magnesium Total Bilirubin 0.7 AST 57 H ALT 45 Alkaline Phosphatase 89 Troponin I < 50 NT-Pro-B Natriuret Pep 2015 H Total Protein 6.6 Albumin 2.4 L TSH 0.92 COVID-19 Source SARS-CoV-2 (PCR) Patient ABO/Rh Antibody Screen Crossmatch 01/07/22 01/07/22 01/07/22 08:35 08:35 09:00 WBC 1.39 L* RBC 2.03 L Hgb 5.7 L* Hct 17.5 L* MCV 86.2 MCH 28.1 MCHC 32.6 RDW 15.0 H Plt Count 3 L* MPV 9.9 Immature Gran % 0.0 Neutrophils % 60.0 Lymphocytes % 11.0 Atypical Lymphs % 1 Monocytes % 3.0 Eosinophils % 0.0 Basophils % 0.0 Other Cells % 25 Nucleated RBC % 0 Absolute Neutrophils 0.83 L Absolute Lymphocytes 0.17 L Absolute Monocytes 0.04 L Absolute Eosinophils 0.00 Absolute Basophils 0.00 RBC Morphology Normal D-Dimer VBG Lactate Sodium Potassium Chloride Carbon Dioxide Anion Gap BUN Creatinine Estimated GFR/1.73 m2 Glucose Calcium Magnesium 1.8 Total Bilirubin AST ALT Alkaline Phosphatase Troponin I NT-Pro-B Natriuret Pep Total Protein Albumin TSH COVID-19 Source SARS-CoV-2 (PCR) Patient ABO/Rh A Positive Antibody Screen NEGATIVE Crossmatch See Detail 01/07/22 09:00 WBC RBC Hgb Hct MCV MCH MCHC RDW Plt Count MPV Immature Gran % Neutrophils % Lymphocytes % Atypical Lymphs % Monocytes % Eosinophils % Basophils % Other Cells % Nucleated RBC % Absolute Neutrophils Absolute Lymphocytes Absolute Monocytes Absolute Eosinophils Absolute Basophils RBC Morphology D-Dimer VBG Lactate Sodium Potassium Chloride Carbon Dioxide Anion Gap BUN Creatinine Estimated GFR/1.73 m2 Glucose Calcium Magnesium Total Bilirubin AST ALT Alkaline Phosphatase Troponin I NT-Pro-B Natriuret Pep Total Protein Albumin TSH COVID-19 Source Nasal/Nares SARS-CoV-2 (PCR) Negative Patient ABO/Rh Antibody Screen Crossmatch Last Vital Signs Temp 36.9 C 01/07/22 12:55 Pulse 83 01/07/22 12:55 Resp 16 01/07/22 12:55 BP 120/55 L 01/07/22 12:55 Pulse Ox 100 01/07/22 12:55
[2022-01-07 15:03] LABS: Troponin I < 50 ng/L (<or=60)
[2022-01-07] MEDS: Loperamide 2 MG CAP PO (17:51)
[2022-01-07 17:52] LABS: Bilirubin Negative (Negative); Blood Trace-lysed (Negative); Clarity Clear (Clear); Glucose Negative (Negative); Ketones Negative (Negative); Leukocyte Esterase Negative (Negative); Nitrite Positive (Negative); Urobilinogen 0.2 EU/dL (Up TO 0.2); pH 5.5 (5-8)
[2022-01-07 18:01] LABS: Bacteria Moderate HPF (Negative); C & S Indicated? Yes; Casts Negative LPF (Negative); Crystals Negative HPF (Negative); Epithelial Cells Few HPF (Negative); Mucus Negative (Negative); RBC 0-2 HPF (0-2)
[2022-01-07] MEDS: Metoprolol CR 25 MG TABCR 12.5 MG PO (19:34)
[2022-01-08 06:47] LABS: HCT 23.7 % (36.0-46.0); HGB 7.8 g/dL (11.2-15.7); MCH 28.1 pg (27.0-33.0); MCHC 32.9 % (32.0-36.0); MCV 85.3 fL (80-95); MPV 12.4 fL (8.0-11.0); Nucleated RBC 0 %; RBC 2.78 10^6/uL (3.93-5.22); RDW 15.2 % (11.7-14.6); RDW-SD 47.3 fL
[2022-01-08 06:48] LABS: Platelet Count 6 10^3/uL (130-400); WBC 1.75 10^3/uL (4.4-10.8)
[2022-01-08 07:28] VITALS: BP 103/63; PULSE 75; RESP 18; TEMP 36.5; O2SAT 98
[2022-01-08 07:37] LABS: Absolute Neutrophil Count 1.03 10^3/uL (1.2-6.7); Bands % 3
[2022-01-08 07:38] LABS: Absolute Lymphocyte Count 0.25 10^3/uL (1.2-3.4)
[2022-01-08 07:39] LABS: Absolute Monocyte Count 0.07 10^3/uL (0.1-0.8); Myelocytes % 1
[2022-01-08 07:40] LABS: Diff Comment Manual Differential; Other Cells % 22; RBC Morphology Normal
--- NOTE | 2022-01-08 08:53 | PDOC.CMIN ---
- If Service Date Differs Date of service: 01/08/22 Time of Service: 08:53 Care Management Initial Assess REASON FOR HOSPITALIZATION:: Pancytopenia PAST MEDICAL HISTORY/PAST SURGICAL HISTORY:: All Active Problems . Neutropenic fever (Acute). Pancytopenia (Acute). Discharge planning issues (Acute). DVT prophylaxis (Acute). AML (acute myeloblastic leukemia) (Acute). Odynophagia (Acute). Palliative care patient (Acute). Leukemia (Chronic). Lung infiltrate (Acute). Breast mass (Chronic). Thrombocytopenia (Chronic). Fever and neutropenia (Acute). GI bleeding (Acute). Abnormal CT of the chest (Acute). Pancytopenia (Acute). Dyspnea on exertion (Acute). S/P recurrent ventral herniorrhaphy (Acute). pt has [id number] polypropalene mesh implanted. S/P right hemicolectomy (Chronic). Diarrhea (Acute). GERD (gastroesophageal reflux disease) (Acute). Adenocarcinoma of right breast (Acute). s/p Lumpectomy. S/p TAVR (transcatheter aortic valve replacement), bioprosthetic (Acute). Cancer of ascending colon metastatic to intra-abdominal lymph node (Acute). S/p Right hemicolectomy. Hypertension (Chronic). History of aortic valve replacement with bioprosthetic valve (Acute). Medical History . Acute CHF. prior to TAVR. none since then. Advance directive on file. Anemia. Aortic stenosis, severe. s/p TAVR. Factitious hyperthyroidism. H/O malignant neoplasm of breast. H/O malignant neoplasm of colon. Hypertension. Hypertension. Hypomagnesemia. Normocytic anemia. Severe aortic stenosis. s/p TAVR. UTI (urinary tract infection). Surgical History . H/O cardiac catheterization. H/O colonoscopy. H/O heart valve replacement with porcine valve. History of esophagogastroduodenoscopy (EGD). History of [place] [facility] [place]ole[place]. Status post closure of ileostomy. Status post right breast lumpectomy PREVIOUS FUNCTIONAL STATUS/SOCIAL/FAMILY SUPPORTS:: Polina lives in [facility] with her son, daugther in-law, and grand daughter. 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 She is currently on social security. Polina is independent at baseline and does not drive. She uses [facility] private vehicle for transportation, since she is on chemo and has a weakend immune system. CURRENT FUNCTIONAL STATUS:: Polina was sitting up in bed when CM met with her. She was alert and engaged in conversation. She feels a throbbing sensation in her neck, Dr. Hayes is aware and watching. VS are stable, she is afebrile, denies sob, chest pain or difficulty swallowing. Polina shares that she is starting to feel better. She is a full code. She is being treated for AML and has a HX of colon and breast cancer. Palliative consult ordered to discuss goals of care. Her outlook is still very positive. She feels very supported by her son Martínez and does not feel she needs [facility] services when she is discharged. ADVANCE DIRECTIVES:: None, not interested at this time. Has patient been provided with info about the portal/API?: Yes Did the patient sign up for the portal?: No CODE STATUS:: Full Code INSURANCE COVERAGE / FINANCIAL ISSUES:: Medicare CURRENT HOME/COMMUNITY SERVICES/EQUIPMENT:: Linda PRIMARY CARE PHYSICIAN:: Tiana Romano POTENTIAL DISCHARGE NEEDS:: Transportation PATIENT/FAMILY EDUCATION NEEDS:: Review discharge instructions, limitations and plan to follow up with community providers, ask me three. TRANSPORTATION:: Via [facility] private vehicle PLAN:: Polina is being treated with IV ABX for a UTI. She is also receiving RBC transfusions. Polina will likely be discharged home via [facility] private vehicle when she is medically cleared by MD. Polina will follow up with her community providers and discharge plan of care. CM continues to support.
[2022-01-08] MEDS: Loperamide 2 MG CAP PO (09:01)
[2022-01-08] MEDS: Metoprolol CR 25 MG TABCR 12.5 MG PO ×2 (09:01→20:16)
[2022-01-08] MEDS: Omeprazole 20 MG CAPCR 40 MG PO (09:02)
[2022-01-08] MEDS: Folic Acid 1 MG TAB PO (09:02)
[2022-01-08 09:37] VITALS: BP 130/63; PULSE 71; RESP 14; TEMP 36.5; O2SAT 98
--- NOTE | 2022-01-08 10:35 | W.PM.PROGNOT ---
Date of Service Date of service: 01/08/22 Time of Service: 10:35 Assessment and Plan Assessment and plan (1) Pancytopenia: Status: Acute Assessment and plan: Secondary to AML. Requiring more frequent transfusions of RBCs and platelets. 2 units RBCs and 1 unit of platelets transfused on day of admission Hgb now 7.8. Platelets 6. Oncology guidelines for this patient suggest transfusing 1 unit of RBCs for hgb < 8 but > 7. 2 units for Hgb < 7. Will transfuse another unit. Has E.Coli UTI, but no fever. ANC has increased. (2) AML (acute myeloblastic leukemia): Status: Acute Assessment and plan: Dxd in Aug. Secondary to previous cancer treatments (breast and colon). Conts to be followed by oncology at [facility] [place] (3) Palliative care patient: Status: Acute Assessment and plan: Will consult palliative to clarify her goals of care and code status. (4) UTI (urinary tract infection): Assessment and plan: E. Coli UTI. Sensitivities pending. No fever or dysuria. Rocephin 1 gram daily. Subjective Subjective Patient reports: afebrile; denies nausea and vomiting Interval history since last seen: Still fatigued. Feels a throbbing sensation in her neck and upper back. Correlates with her heart beat. No diaphoresis. No cough/congestion. Exam Const General: cooperative, no acute distress and other (fatigued appearing. ) Nutritional Appearance: overweight Orientation: awake and oriented x3 Eyes General: appearance normal, both eyes and all related structures Conjunctivae: conjunctival abnormality (pale palpebral conjunctivae) Sclera: sclerae normal and scleral abnormality Neck Neck: full ROM and no JVD Resp Effort & Inspection: normal respiratory effort Auscultation: clear to auscultation bilaterally Cardio Rate: regular rate Rhythm: regular rhythm Heart Sounds: S1 normal and S2 normal GI Palpation: soft and nontender Auscultation: normal bowel sounds Skin General skin exam: ecchymosis (scattered on both arms. ) and pallor Neuro General: no focal motor deficits Cognition: normal cognition Speech: speech normal Extrem General: no pedal edema and no calf tenderness Psych Appearance: grossly normal Mental Status: mental status grossly normal Mood: congruent mood Affect: normal affect Objective Last Vital Signs Temp 36.5 C 01/08/22 07:28 Pulse 75 01/08/22 07:28 Resp 18 01/08/22 07:28 BP 103/63 01/08/22 07:28 Pulse Ox 98 01/08/22 07:28 Laboratory Results - last 24 hr 01/07/22 01/07/22 01/07/22 09:00 09:00 14:25 WBC RBC Hgb Hct MCV MCH MCHC RDW Plt Count MPV Immature Gran % Neutrophils % Band Neutrophils % Lymphocytes % Monocytes % Eosinophils % Basophils % Myelocytes % Other Cells % Nucleated RBC % Absolute Neutrophils Absolute Lymphocytes Absolute Monocytes Absolute Eosinophils Absolute Basophils RBC Morphology Troponin I < 50 Urine Color Urine Clarity Urine pH Ur Specific Cullom Urine Protein Urine Ketones Urine Blood Urine Nitrite Urine Bilirubin Urine Urobilinogen Ur Leukocyte Esterase Urine RBC Urine WBC Ur Epithelial Cells Urine Crystals Urine Bacteria Urine Casts Urine Mucus Ur Culture Indicated? Urine Glucose SARS-CoV-2 (PCR) Negative Patient ABO/Rh A Positive Antibody Screen NEGATIVE Crossmatch See Detail 01/07/22 01/08/22 17:42 06:15 WBC 1.75 L* RBC 2.78 L Hgb 7.8 L D Hct 23.7 L D MCV 85.3 MCH 28.1 MCHC 32.9 RDW 15.2 H Plt Count 6 L* D MPV 12.4 H Immature Gran % 0.0 Neutrophils % 56.0 Band Neutrophils % 3 Lymphocytes % 14.0 Monocytes % 4.0 Eosinophils % 0.0 Basophils % 0.0 Myelocytes % 1 Other Cells % 22 Nucleated RBC % 0 Absolute Neutrophils 1.03 L Absolute Lymphocytes 0.25 L Absolute Monocytes 0.07 L Absolute Eosinophils 0.00 Absolute Basophils 0.00 RBC Morphology Normal Troponin I Urine Color Yellow Urine Clarity Clear Urine pH 5.5 Ur Specific Cullom 1.020 Urine Protein Negative Urine Ketones Negative Urine Blood Trace-lysed H Urine Nitrite Positive H Urine Bilirubin Negative Urine Urobilinogen 0.2 Ur Leukocyte Esterase Negative Urine RBC 0-2 Urine WBC 3-5 Ur Epithelial Cells Few Urine Crystals Negative Urine Bacteria Moderate Urine Casts Negative Urine Mucus Negative Ur Culture Indicated? Yes Urine Glucose Negative SARS-CoV-2 (PCR) Patient ABO/Rh Antibody Screen Crossmatch
[2022-01-08 11:30] VITALS: BP 115/68; PULSE 78; RESP 12; TEMP 37.3; O2SAT 99
[2022-01-08] MEDS: cefTRIAXone 1 GM/50 ML BAG IVPB (12:00)
[2022-01-08 19:10] VITALS: BP 121/67; PULSE 79; RESP 14; TEMP 38.1; O2SAT 97
[2022-01-08] MEDS: Acetaminophen 325 MG TAB PO (20:17)
[2022-01-08] MEDS: Acyclovir 400 MG TAB PO (21:10)
[2022-01-08 22:40] VITALS: BP 99/53; PULSE 72; RESP 14; TEMP 37.3; O2SAT 98
[2022-01-09] VITALS (12 sets, daily range): BP systolic 91–132; BP diastolic 45–70; PULSE 73–89; RESP 12–18; TEMP 36.4–38.1; O2SAT 96–100
[2022-01-09 07:13] LABS: Abs Immature Grans 0.11 10^3/uL (0.0-0.06); HCT 26.9 % (36.0-46.0); MCH 28.2 pg (27.0-33.0); MCHC 33.5 % (32.0-36.0); MCV 84.3 fL (80-95); Nucleated RBC 0 %; RBC 3.19 10^6/uL (3.93-5.22); RDW-SD 46.5 fL
[2022-01-09 07:20] LABS: WBC 1.52 10^3/uL (4.4-10.8)
[2022-01-09 07:29] LABS: Absolute Lymphocyte Count 0.29 10^3/uL (1.2-3.4); Absolute Monocyte Count 0.05 10^3/uL (0.1-0.8); Absolute Neutrophil Count 0.76 10^3/uL (1.2-6.7); Anion Gap 6.5 mmol/L (3-11); Atypical Lymphocytes % 2; BUN 23 mg/dL (7-18); CO2 24.5 mmol/L (21.0-32.0); CREATININE 0.9 mg/dL (0.55-1.02); Calcium 8.4 mg/dL (8.5-10.1); Chloride 102 mmol/L (98-107); Glucose 89 mg/dL (74-106); Metamyelocytes % 1; Other Cells % 27; Sodium 133 mmol/L (136-145)
[2022-01-09 07:30] LABS: Diff Comment Manual Differential; Platelet Count 3 10^3/uL (130-400); RBC Morphology Normal
[2022-01-09] MEDS: Omeprazole 20 MG CAPCR 40 MG PO (08:29)
[2022-01-09] MEDS: Metoprolol CR 25 MG TABCR 12.5 MG PO ×2 (08:29→19:55)
[2022-01-09] MEDS: Folic Acid 1 MG TAB PO (08:30)
[2022-01-09] MEDS: Acyclovir 400 MG TAB PO ×2 (08:30→19:56)
[2022-01-09] MEDS: Normal Saline Flush 10 ML SYR IVP ×3 (09:43→19:56)
[2022-01-09] MEDS: cefTRIAXone 1 GM/50 ML BAG IVPB (09:45)
--- NOTE | 2022-01-09 11:39 | NUR.NOTE ---
Nursing Note: platelets were 3, provider orders 1 run of platelets started at 1134
--- NOTE | 2022-01-09 12:09 | PDOC.CMPRO ---
- If Service Date Differs Date of service: 01/09/22 Time of Service: 12:09 Care Management Progress Note S/O: Polina was admitted for pancytopenia secondary to AML. She has a UTI and is being treated with IV ABX. She was lying in bed when CM met with her this afternoon. She was pleasant and easily engaged in conversation. She shares that she is tired. She is getting more frequent platelet transfusions. CM discussed Advanced Directives with her. She verbalized understanding, and was clear that she does not want Advanced Directives. A: 76 year old female admitted to [facility] on 01/07/22 for Pancytopenia, Leukemia, UTI P: Polina is being treated with IV ABX for a UTI. She is also receiving RBC transfusions. Polina will likely be discharged home via [facility] private vehicle when she is medically cleared by . No [facility] services per patient. Polina will follow up with her community providers and discharge plan of care. CM continues to support.
--- NOTE | 2022-01-09 12:25 | NUR.NOTE ---
temp 37.8, patient refused tylenol. stated she did not need it.Nursing Note:
[2022-01-09] MEDS: Acetaminophen 325 MG TAB PO (13:40)
--- NOTE | 2022-01-09 14:08 | PGE_ITS ---
Date of Service Date of service: 01/09/22 Time of Service: 14:18 Assessment and Plan Assessment and plan (1) Pancytopenia: Status: Acute Assessment and plan: Secondary to AML. Requiring more frequent transfusions of RBCs and platelets. 2 units RBCs and 1 unit of platelets transfused on day of admission Hgb increased to 7.8. Platelets 6. Oncology guidelines for this patient suggest transfusing 1 unit of RBCs for hgb < 8 but > 7. 2 units for Hgb < 7. Transfused another unit of RBCs; hgb improved to 9. Has UTI and now with fever. ANC 760 Platelets back to 3. Transfuse another unit of platelets tomorrow. (2) AML (acute myeloblastic leukemia): Status: Acute Assessment and plan: Dxd in Aug. Secondary to previous cancer treatments (breast and colon). Conts to be followed by oncology at [facility] [place] (3) Palliative care patient: Status: Acute Assessment and plan: Will consult palliative to clarify her goals of care and code status. (4) UTI (urinary tract infection): Assessment and plan: E. Coli UTI. Sensitivities now known; Cont Rocephin. + fever Tm 38.1 today. PRN tylenol. Subjective Subjective Patient reports: no new complaints, tolerating a regular diet and fever; denies nausea and vomiting Interval history since last seen: Feels tired. Exam Const General: cooperative, no acute distress and other (fatigued appearing. ) Nutritional Appearance: overweight Orientation: awake and oriented x3 Eyes General: appearance normal, both eyes and all related structures Conjunctivae: conjunctival abnormality (pale palpebral conjunctivae) Sclera: sclerae normal and scleral abnormality Neck Neck: full ROM and no JVD Resp Effort & Inspection: normal respiratory effort Auscultation: clear to auscultation bilaterally Cardio Rate: regular rate Rhythm: regular rhythm Heart Sounds: S1 normal and S2 normal GI Palpation: soft and nontender Auscultation: normal bowel sounds Skin General skin exam: ecchymosis (scattered on both arms. ) and pallor Neuro General: no focal motor deficits Cognition: normal cognition Speech: speech normal Extrem General: no pedal edema and no calf tenderness Psych Appearance: grossly normal Mental Status: mental status grossly normal Mood: congruent mood Affect: normal affect Objective Last Vital Signs Temp 37.8 C H 01/09/22 13:49 Pulse 88 01/09/22 13:49 Resp 12 02/09/22 13:49 BP 132/58 L 01/09/22 13:49 Pulse Ox 97 01/09/22 13:49 Laboratory Results - last 24 hr 01/07/22 01/09/22 01/09/22 09:00 06:17 06:17 WBC 1.52 L* RBC 3.19 L Hgb 9.0 L Hct 26.9 L MCV 84.3 MCH 28.2 MCHC 33.5 RDW 15.0 H Plt Count 3 L* MPV Immature Gran % 0.0 Neutrophils % 50.0 Lymphocytes % 17.0 Atypical Lymphs % 2 Monocytes % 3.0 Eosinophils % 0.0 Basophils % 0.0 Metamyelocytes % 1 Other Cells % 27 Nucleated RBC % 0 Absolute Neutrophils 0.76 L Absolute Lymphocytes 0.29 L Absolute Monocytes 0.05 L Absolute Eosinophils 0.00 Absolute Basophils 0.00 RBC Morphology Normal Sodium 133 L Potassium 4.0 Chloride 102 Carbon Dioxide 24.5 Anion Gap 6.5 BUN 23 H Creatinine 0.9 Estimated GFR/1.73 m2 >= 60.00 Glucose 89 Calcium 8.4 L Patient ABO/Rh A Positive Antibody Screen NEGATIVE Crossmatch See Detail
[2022-01-09] MEDS: Baclofen 10 MG TAB PO (19:55)
[2022-01-10] VITALS (9 sets, daily range): BP systolic 100–115; BP diastolic 50–68; PULSE 75–80; RESP 14–18; TEMP 37.1–37.8; O2SAT 94–98
[2022-01-10] MEDS: Omeprazole 20 MG CAPCR 40 MG PO (08:26)
[2022-01-10] MEDS: Acyclovir 400 MG TAB PO ×2 (08:26→21:37)
[2022-01-10] MEDS: Folic Acid 1 MG TAB PO (08:27)
[2022-01-10] MEDS: Baclofen 10 MG TAB PO ×2 (08:27→15:11)
[2022-01-10] MEDS: Metoprolol CR 25 MG TABCR 12.5 MG PO ×2 (08:27→21:39)
--- NOTE | 2022-01-10 09:30 | PCNE_ITS ---
Date of service: 01/10/22 Time of Service: 09:30 History of Present Illness Narrative: Ms. Fish is a 76 y/o new [facility] pt currently inpt at [facility] 2/2 pancytopenia; PMHx sig for AML, h/o colon and breast cancers, HTN, aortic stenosis s/p TAVR; Pt presented to ER 01/07/ w/SOB and weakness, labs: Hgb 5.7, WBC 1.39, platelets 3, w/no evidence of infection; received transfusion of pRBC and platelets w/improvement; ?f/[place] [facility] [place], oncology review shows progressive dz, pt did not tolerate therpy w/worsening neutropenia, is now on supportive care w/ transfusions of pRBC and platelets twice weekly on at [facility]; latest note shows peripheral blasts, significant for progressive leukemia; last cycle of decitabine/venetoclax 12/21/21, f/u w/Dr. Crow on 01/24/22; consult placed to review goals of care Pt reports lives w/son Martínez, daughter BK Carlos and granddaughter Kinsey, feels safe at home, iADLs at baseline, feels comfortable returning home w/no services; has MOW currently; h/o HH RN which she found helpful; pt reports always feels better after transfusions, feels that if had transfusions TID (//) this would bring improved QoL, always feels worse on Mondays prior to infusion w/weakness and feeling sick to stomach, resolves after transfusion; reports h/o mouth sores/blood blisters, controlled w/acyclovir, which did not have initially on inpatient, mouth sore returned, non-painful; Goals: go home, spend time w/family especially granddaughter, avoid hospitalizations, feels life is now ?in God?s hands?, not in doctors, does not want to complete AD at this time, HCA on file, son Cameron 1st, Martínez co-agent ([phone]) Assessment and Plan Assessment and plan (1) Pancytopenia: Status: Acute (2) AML (acute myeloblastic leukemia): Status: Acute (3) Palliative care patient: Status: Acute (4) Leukemia: Status: Chronic Assessment and plan: defer to [facility] oncology for consideration of TID infusions, encouraged pt also bring up w/provider reviewed available services as needed at home continue to follow, home visit for safety assessment f/u w/COLST in future PRN Qualifiers: Leukemia type: unspecified Review of Systems Narrative: Const?Denies anorexia, difficulty sleeping, frequent falls, weakness or weight loss?ENT?Denies dysphagia?Card?Denies syncope or dyspnea?Resp?Denies cough, dyspnea or wheezing?GI?Denies change in bowel habits, dysphagia, nausea or vomiting?Musc?Denies abnormal gait?Neuro?Denies abnormal gait, confusion, syncope, frequent falls or weakness?Psych?Denies anxiety, confusion, depression or hopelessness?Aller/Immun?Denies wheezing? 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) willing to take oxycodone for pain and dyspnea Dyspnea (Acute) POLST (Physician Orders for Life-Sustaining Treatment) (Acute) signed 01/16/22 Comfort measures only status (Acute) group home resident (Acute) Pneumonia (Acute) DNI (do not intubate) (Acute) DNR (do not resuscitate) (Acute) Epistaxis (Acute) Pancytopenia (Acute) AML (acute myeloblastic leukemia) (Acute) Odynophagia (Acute) Palliative care patient (Acute) Leukemia (Chronic) Lung infiltrate (Acute) Breast mass (Chronic) Thrombocytopenia (Chronic) Fever and neutropenia (Acute) GI bleeding (Acute) Abnormal CT of the chest (Acute) Pancytopenia (Acute) Dyspnea on exertion (Chronic) S/P recurrent ventral herniorrhaphy (Acute) pt has [id number] polypropalene mesh implanted S/P right hemicolectomy (Chronic) Diarrhea (Acute) GERD (gastroesophageal reflux disease) (Acute) S/p TAVR (transcatheter aortic valve replacement), bioprosthetic (Acute) Hypertension (Chronic) History of aortic valve replacement with bioprosthetic valve (Acute) Medical History Acute CHF prior to TAVR. none since then Advance directive on file Anemia Aortic stenosis, severe s/p TAVR Factitious hyperthyroidism H/O malignant neoplasm of breast H/O malignant neoplasm of colon Hypertension Hypertension Hypomagnesemia Normocytic anemia Severe aortic stenosis s/p TAVR UTI (urinary tract infection) Surgical History H/O cardiac catheterization H/O colonoscopy H/O heart valve replacement with porcine valve History of esophagogastroduodenoscopy (EGD) History of ventral hernia repair 07/01/19 at [facility] S/P cholecystectomy Status post closure of ileostomy Status post right breast lumpectomy Family History Mother Stroke Hypertension Son Diabetes type 2 Son Diabetes type 2 Father Cancer lung cancer - smoker Brother Cancer unknown type Son No problems noted. Social History (Updated 01/16/22 @ 15:39 by Dorinda Beck MD) Smoking/Tobacco Use Status: Former Tobacco Use Pack-years: 141 Tobacco: How many years used: 47 Smoking risk assessment performed?: Yes Alcohol Intake: former Drug use: Never Substance use type: does not use Caregiver/Support person: Yes Household members: none and other Details: moved into rehab on 01/16/22 Housing: correction Number of Children: 3 number of grandchildren: 2 Communication Needs: Hard of Hearing and Corrective Lenses Education Level: high school Do you need help understanding health information?: Always Current gender identity: female What is your relationship status?: Panel score (0-1 are the most socially isolated patients): 0 What type of physical activity do you participate in: none and sedentary lifestyle Frequency: does not exercise Special trung needs: No Agree to transfusion: No (as of her 01/15/22 visit) Seatbelt use: always Working smoke detector in home: Yes Fire extinguisher in home: Yes Do you feel safe at home: Yes Do you feel safe in your relationship?: Yes Additional Social history: Polina usually lives with her son Martínez, his SO and their daughter, to whom Polina is very close. This granddaughter functions at about a 10-12 yo child level, per her father, though she is 22. She is very germ-phobic and afraid of hospitals. Polina told me that her granddaughter has already said good-bye to her. Polina is aware that her days are coming to an end. She wants to be comfortable. She doesn't want to be a burden to her family. She would like to go to Rehab. She is afraid of having diarrhea and needing cleaning up in the middle of the night. She doesn't want her son to have to do this for her, though he says he would be willing. Whenever her platelets drop, she bleeds from her nose and from her bowels. She would rather nurses and LNAs care for her than her family. She was happy with the care her received at the rehab, from their staff and from hospice. She says in the past she had [employer] [facility]. She doesn't know if she still has it. She thinks she might still be eligible. IF she can have her insurance cover hospice, she would want it. But she can't afford to pay for room and board at rehab on her own. She wants to have [facility] follow her at Rehab when she goes there on comfort measures. She filled out and signed her COLST form on 01/16: DNR/DNI, do not transfer, ok for abx and for IVF IF they bring her comfort. Exam Narrative Exam Narrative: Const?Other: laying comfortably in bed, visit ended prematurely 01/02 requesting to get dressed w/care team assistance?Resp?Effort & Inspection: normal respiratory effort, able to speak in complete sentences and no audible wheezes?HENMT?Head: normal to inspection, normocephalic and no cyanosis of lips/distal nose?Ears: hearing grossly normal bilaterally?Other: blood sore noted on underside of distal tongue, no active bleeding?Psych ?Appearance: grossly normal?Mental Status: mental status grossly normal?Speech and Movement: speech and movement normal and speech clear?Mood: congruent mood?Attitude: cooperative?Affect: normal affect?Const?General: cooperative, comfortable and no acute distress?Orientation: alert, awake and oriented x3?Neck ?Neck: normal visual inspection?Neuro?Cognition: normal cognition?Speech: speech normal Results Last Vital Signs Temp 97.3 F L 01/16/22 07:39 Pulse 79 01/16/22 07:39 Resp 17 01/16/22 07:39 BP 119/71 01/16/22 07:39 Pulse Ox 98 01/16/22 07:39 Labs Result diagrams: 01/15/22 06:20 01/15/22 06:20
[2022-01-10 09:34] LABS: HCT 27.1 % (36.0-46.0); HGB 8.9 g/dL (11.2-15.7); MCHC 32.8 % (32.0-36.0); MCV 85.2 fL (80-95); MPV 8.9 fL (8.0-11.0); Nucleated RBC 0 %; RBC 3.18 10^6/uL (3.93-5.22); RDW 14.9 % (11.7-14.6); RDW-SD 47.3 fL
[2022-01-10 10:07] LABS: Absolute Lymphocyte Count 0.17 10^3/uL (1.2-3.4); Absolute Neutrophil Count 0.71 10^3/uL (1.2-6.7); Atypical Lymphocytes % 4; Bands % 1
[2022-01-10 10:08] LABS: Absolute Eosinophil Count 0.01 10^3/uL (0.0-0.7); Absolute Monocyte Count 0.14 10^3/uL (0.1-0.8); Myelocytes % 1; Platelet Count 5 10^3/uL (130-400); WBC 1.39 10^3/uL (4.4-10.8)
[2022-01-10 10:09] LABS: Diff Comment Manual Differential; Other Cells % 25; RBC Morphology Normal
--- NOTE | 2022-01-10 11:01 | PGE_ITS ---
Date of Service Date of service: 01/10/22 Time of Service: 11:01 Assessment and Plan Assessment and plan (1) Pancytopenia: Status: Acute Assessment and plan: Secondary to AML. Requiring more frequent transfusions of RBCs and platelets. 2 units RBCs and 1 unit of platelets transfused on day of admission Hgb increased to 7.8. Platelets 6. Oncology guidelines for this patient suggest transfusing 1 unit of RBCs for hgb < 8 but > 7. 2 units for Hgb < 7. Transfused another unit of RBCs; hgb improved to 9. Has UTI and now with fever. ANC 760 Platelets back to 3. Transfused another unit of platelet on 01/09. Plan another platelet transfusion tomorrow before likely discharge. (2) AML (acute myeloblastic leukemia): Status: Acute Assessment and plan: Dxd in Aug. Secondary to previous cancer treatments (breast and colon). Conts to be followed by oncology at [facility] [place] (3) Palliative care patient: Status: Acute Assessment and plan: Will consult palliative to clarify her goals of care and code status. (4) UTI (urinary tract infection): Assessment and plan: E. Coli UTI. Sensitivities now known; Cont Rocephin. + fever Tm 38.1 yesterday afternoon; afebrile since. PRN tylenol. Subjective Subjective Patient reports: no new complaints, feels better, tolerating a regular diet and afebrile; denies nausea or vomiting Exam Const General: cooperative, no acute distress and other (less fatigued appearing.) Nutritional Appearance: overweight Orientation: awake and oriented x3 Eyes General: appearance normal, both eyes and all related structures Conjunctivae: conjunctival abnormality (pale palpebral conjunctivae) Sclera: sclerae normal and scleral abnormality Neck Neck: full ROM and no JVD Resp Effort & Inspection: normal respiratory effort Auscultation: clear to auscultation bilaterally Cardio Rate: regular rate Rhythm: regular rhythm Heart Sounds: S1 normal and S2 normal GI Palpation: soft and nontender Auscultation: normal bowel sounds Skin General skin exam: ecchymosis (scattered on both arms. ) and pallor Neuro General: no focal motor deficits Cognition: normal cognition Speech: speech normal Extrem General: no pedal edema and no calf tenderness Psych Appearance: grossly normal Mental Status: mental status grossly normal Mood: congruent mood Affect: normal affect Objective Last Vital Signs Temp 37.1 C 01/10/22 07:29 Pulse 75 01/10/22 07:29 Resp 14 01/10/22 07:29 BP 106/55 L 01/10/22 07:29 Pulse Ox 98 01/10/22 07:29 Laboratory Results - last 24 hr 01/07/22 01/10/22 09:00 09:15 WBC 1.39 L* RBC 3.18 L Hgb 8.9 L Hct 27.1 L MCV 85.2 MCH 28.0 MCHC 32.8 RDW 14.9 H Plt Count 5 L* D MPV 8.9 Immature Gran % 0.0 Neutrophils % 50.0 Band Neutrophils % 1 Lymphocytes % 8.0 Atypical Lymphs % 4 Monocytes % 10.0 Eosinophils % 1.0 Basophils % 0.0 Myelocytes % 1 Other Cells % 25 Nucleated RBC % 0 Absolute Neutrophils 0.71 L Absolute Lymphocytes 0.17 L Absolute Monocytes 0.14 Absolute Eosinophils 0.01 Absolute Basophils 0.00 RBC Morphology Normal Patient ABO/Rh A Positive Antibody Screen NEGATIVE Crossmatch See Detail
--- NOTE | 2022-01-10 11:23 | PDOC.CMPRO ---
- If Service Date Differs Date of service: 01/10/22 Time of Service: 11:23 Care Management Progress Note S/O: Polina was seen by Palliative care today. She was sitting up on the side of her bed when CM met with her. She reported that she is feeling great today, and per MD her plan is to be discharged home tomorrow. She stated that she does not feel that she will need any services when she discharges home. CM will continue to follow. A: 76 year old female admitted to [facility] on 01/07/22 for Pancytopenia, Leukemia, UTI P: Polina is being treated with IV ABX for a UTI. She is also receiving RBC transfusions. Polina will likely be discharged home via [facility] private vehicle when she is medically cleared by MD. No [facility] services per patient. Polina will follow up with her community providers and discharge plan of care. CM continues to support.
[2022-01-10] MEDS: cefTRIAXone 1 GM/50 ML BAG IVPB (11:41)
[2022-01-10] MEDS: Acetaminophen 325 MG TAB PO (15:27)
--- NOTE | 2022-01-10 15:44 | CHAPLAIN ---
Polina was resting in bed when I visited. She was very pleasant, telling me the she is from here originally, then lived in [facility] where he was from, and moved back her six years ago. She lives near her son and daughter in law. She talked about how nice her landlord is and the gifts he's given her. I will continue to visit.
[2022-01-10] MEDS: Normal Saline Flush 10 ML SYR IVP (22:42)
[2022-01-11 06:56] LABS: HCT 25.4 % (36.0-46.0); HGB 8.3 g/dL (11.2-15.7); MCH 27.7 pg (27.0-33.0); MCHC 32.7 % (32.0-36.0); MCV 84.7 fL (80-95); MPV 9.7 fL (8.0-11.0); Nucleated RBC 0 %; RDW 14.6 % (11.7-14.6)
[2022-01-11 07:20] LABS: Absolute Lymphocyte Count 0.23 10^3/uL (1.2-3.4); Absolute Neutrophil Count 0.53 10^3/uL (1.2-6.7); Atypical Lymphocytes % 1; Bands % 1; Platelet Count 8 10^3/uL (130-400); WBC 1.23 10^3/uL (4.4-10.8)
[2022-01-11 07:21] LABS: Absolute Monocyte Count 0.23 10^3/uL (0.1-0.8); Diff Comment Manual Differential; Hypochromasia 2+; Myelocytes % 2; Other Cells % 17
[2022-01-11 07:44] VITALS: BP 118/57; PULSE 76; RESP 13; TEMP 36.7; O2SAT 99
[2022-01-11] MEDS: Ondansetron 4 MG/2 ML VIAL IVP ×2 (08:54→20:56)
[2022-01-11] MEDS: Omeprazole 20 MG CAPCR 40 MG PO (09:44)
[2022-01-11] MEDS: Acyclovir 400 MG TAB PO ×2 (09:44→20:43)
[2022-01-11] MEDS: Folic Acid 1 MG TAB PO (09:44)
[2022-01-11] MEDS: Metoprolol CR 25 MG TABCR 12.5 MG PO ×2 (09:45→20:43)
[2022-01-11] MEDS: Lactobacillus Acidophilus CAP 1 CAP PO ×3 (11:57→20:44)
--- NOTE | 2022-01-11 13:03 | PDOC.CMPRO ---
- If Service Date Differs Date of service: 01/11/22 Time of Service: 13:03 Care Management Progress Note S/O: Polina was seen by Palliative care yesterday and elects no change to code status. Polina was sitting up on the side of her bed when CM met with her. She reported that she is feeling more weak today, and is anticipating being discharged home tomorrow afternoon. CM arranged [facility] private vehicle for 2pm tomorrow, and will notify [facility] if discharge plan changes. She stated that she does not feel that she will need any services when she discharges home. CM will continue to follow. A: 76 year old female admitted to [facility] on 01/07/22 for Pancytopenia, Leukemia, UTI P: Polina is being treated with IV ABX for a UTI. She is also receiving RBC transfusions. Polina will discharge home via [facility] private vehicle when she is medically cleared by . No [facility] services per patient. Polina will follow up with her community providers and discharge plan of care. CM continues to support.
[2022-01-11] MEDS: cefTRIAXone 1 GM/50 ML BAG IVPB (14:40)
--- NOTE | 2022-01-11 15:51 | PGE_ITS ---
Date of Service Date of service: 01/11/22 Time of Service: 15:51 Assessment and Plan Assessment and plan (1) Pancytopenia: Status: Acute Assessment and plan: Secondary to AML. Requiring more frequent transfusions of RBCs and platelets. 2 units RBCs and 1 unit of platelets transfused on day of admission Hgb increased to 7.8. Platelets 6. Oncology guidelines for this patient suggest transfusing 1 unit of RBCs for hgb < 8 but > 7. 2 units for Hgb < 7. Transfused another unit of RBCs; hgb improved to 9. Has UTI and now with fever. ANC 760 Platelets back down to 3 Transfused another unit of platelet on 01/09 and platelets increased to 5. Plan another platelet transfused on 01/10; platelets increased to 8. (2) AML (acute myeloblastic leukemia): Status: Acute Assessment and plan: Dxd in Aug. Secondary to previous cancer treatments (breast and colon). Conts to be followed by oncology at [facility] (3) Palliative care patient: Status: Acute Assessment and plan: Will consult palliative to clarify her goals of care and code status. (4) UTI (urinary tract infection): Assessment and plan: E. Coli UTI. Sensitivities now known; Cont Rocephin. + fever, now resolved. (5) Discharge planning issues: Status: Acute Assessment and plan: Planning d/c on Friday 01/12. She will continue with her routine infusion center labs/transfusions. Subjective Subjective Patient reports: no new complaints, feels better, tolerating a regular diet and afebrile; denies nausea or vomiting Interval history since last seen: Still fatigued Exam Const General: cooperative and no acute distress Nutritional Appearance: overweight Orientation: awake and oriented x3 Eyes General: appearance normal, both eyes and all related structures Conjunctivae: conjunctival abnormality (pale palpebral conjunctivae) Sclera: sclerae normal and scleral abnormality Neck Neck: full ROM and no JVD Resp Effort & Inspection: normal respiratory effort Auscultation: clear to auscultation bilaterally Cardio Rate: regular rate Rhythm: regular rhythm Heart Sounds: S1 normal and S2 normal GI Palpation: soft and nontender Auscultation: normal bowel sounds Skin General skin exam: ecchymosis (scattered on both arms. ) and pallor Neuro General: no focal motor deficits Cognition: normal cognition Speech: speech normal Extrem General: no pedal edema and no calf tenderness Psych Appearance: grossly normal Mental Status: mental status grossly normal Mood: congruent mood Affect: normal affect Objective Last Vital Signs Temp 36.7 C 01/11/22 07:44 Pulse 76 01/11/22 07:44 Resp 13 01/11/22 07:44 BP 118/57 L 01/11/22 07:44 Pulse Ox 99 01/11/22 07:44 Laboratory Results - last 24 hr 01/07/22 01/11/22 09:00 06:05 WBC 1.23 L* RBC 3.00 L Hgb 8.3 L Hct 25.4 L MCV 84.7 MCH 27.7 MCHC 32.7 RDW 14.6 Plt Count 8 L* D MPV 9.7 Immature Gran % See Differential Neutrophils % 42.0 Band Neutrophils % 1 Lymphocytes % 18.0 Atypical Lymphs % 1 Monocytes % 19.0 Eosinophils % 0.0 Basophils % 0.0 Myelocytes % 2 Other Cells % 17 Nucleated RBC % 0 Absolute Neutrophils 0.53 L Absolute Lymphocytes 0.23 L Absolute Monocytes 0.23 Absolute Eosinophils 0.00 Absolute Basophils 0.00 RBC Morphology See Below Hypochromasia 2+ Crossmatch See Detail
--- NOTE | 2022-01-11 16:52 | PHA.REVIEW ---
Pharmacy Admission Review - Admission Clinical Review (Last Reviewed 01/07/22 @ 13:37 by Jose Hayes MD) Pancytopenia (Acute) Discharge planning issues (Acute) AML (acute myeloblastic leukemia) (Acute) Palliative care patient (Acute) morphine Allergy (Intermediate, Unverified 10/14/21 15:35) Hives Resuscitation Status Full Code Height 4 ft 9 in Weight 62 kg - Renal Dosing Renal Dosing: BUN 23 mg/dL (7-18) H 01/09/22 06:17 Creatinine 0.9 mg/dL (0.55-1.02) 01/09/22 06:17 Medications needing adjustments: Reviewed (Crcl ~38.79 mL/min current meds okay) - Anticoagulation Anticoagulation: Hgb 8.3 g/dL (11.2-15.7) L 01/11/22 06:05 Hct 25.4 % (36.0-46.0) L 01/11/22 06:05 Plt Count 8 10^3/uL (130-400) L* D 01/11/22 06:05 Creatinine 0.9 mg/dL (0.55-1.02) 01/09/22 06:17 DVT Prophylaxis: N/A Therapeutic Anticoagulation: N/A - Opiate Usage Evaluate Pain Scale/Pains Meds: N/A - Relevant Labs Sodium 133 mmol/L (136-145) L 01/09/22 06:17 Potassium 4.0 mmol/L (3.5-5.1) 01/09/22 06:17 Chloride 102 mmol/L (98-107) 01/09/22 06:17 Magnesium 1.8 mg/dL (1.8-2.4) 01/07/22 08:35 Electrolytes, C-Reactive P, ESR: Reviewed - DM Control DM Control: Glucose 89 mg/dL (74-106) 01/09/22 06:17 Insulin Dosing: N/A - Heart Failure/DE Heart Failure/DE: Troponin I < 50 ng/L (<or=60) 01/07/22 14:25 NT-Pro-B Natriuret Pep 2015 pg/mL (<300) H 01/07/22 08:35 EF%, EDD's, B-Blockers, Diuretics: Reviewed - BP Control BP Control: Blood Pressure 118/57 If elevated: N/A (BP has been normal to low most of admission so far, pt currently has metoprolol ordered.) - Qtc Review If Elevated: Reviewed (QTc 497 on admission, pt currently has ondansetron ordered) - IV to PO Switch IV Medications: Reviewed - Home Meds Home Med List reviewed: Reviewed Relevent Home Meds Not ordered & why?: nystatin - Current meds Current Medication Order Review: Reviewed - Comments Comments/Follow Ups: Watch BP, H/H, plts, SCr, labs and for med changes (possible renal dose adjustments, avoid QT prolonging meds). Antibiotic Activity - Pharmacy Antibiotic Review Pharmacy Antibiotic Activity: Reviewed, no change (ceftriaxone continues (day 4) for UTI per progress note. Urine culture grew E.Coli. Blood cultures all no growth to date.)
[2022-01-11 17:12] VITALS: BP 121/68; PULSE 86; RESP 15; TEMP 37; O2SAT 99
[2022-01-11 20:45] VITALS: PULSE 87; RESP 18; TEMP 38.3; O2SAT 98
[2022-01-11] MEDS: Normal Saline Flush 10 ML SYR IVP (20:55)
[2022-01-12] VITALS (14 sets, daily range): BP systolic 83–122; BP diastolic 49–70; PULSE 73–95; RESP 15–19; TEMP 36.1–37.5; O2SAT 99–100
--- NOTE | 2022-01-12 06:45 | DI.RAD_ITS ---
Exam(s) XR CHEST 2V PA LATERAL EXAM: XR CHEST 2V PA LATERAL CLINICAL HISTORY: fever TECHNIQUE: 2D digital imaging was performed of the chest. Two images were obtained. PA and lateral views were obtained. COMPARISON: CR XR CHEST 2V PA LATERAL from 07/18/[address] CHEST PE CTA from 07/24/2021 CR,XR XR PORTABLE CHEST AP from 10/15/2021 CR XR PORTABLE CHEST AP from 01/07/2022 FINDINGS: MEDIASTINUM: Normal. HEART: Normal. There is again seen an aortic valve replacement. PULMONARY VASCULATURE: Normal. LUNGS: Interstitial opacities in the right lung which have a similar appearance to the chest x-ray fr om 07/18/2021 and may represent scarring. Underlying new pneumonia cannot be excluded. Please correl ate clinically. PLEURAL SPACE: No pleural effusion or pneumothorax. BONE:Within normal limits for the patient's age. Stable chronic findings in the right ribs. OTHER FINDINGS:The tip of the indwelling central venous catheter is in good position in the superior vena cava. IMPRESSION: Scarring or acute infiltrate in the right lung. Please correlate clinically. DATA REPOSITORY: RADIATION DOSE DELIVERED:
[2022-01-12 07:09] LABS: Abs Immature Grans 0.07 10^3/uL (0.0-0.06); HCT 21.7 % (36.0-46.0); HGB 7.2 g/dL (11.2-15.7); MCHC 33.2 % (32.0-36.0); MCV 84.4 fL (80-95); Nucleated RBC 0 %; RBC 2.57 10^6/uL (3.93-5.22); RDW 14.5 % (11.7-14.6); RDW-SD 45.1 fL
[2022-01-12 08:00] LABS: WBC 1.29 10^3/uL (4.4-10.8)
[2022-01-12 08:01] LABS: Absolute Basophil Count 0.03 10^3/uL (0.0-0.2); Absolute Lymphocyte Count 0.21 10^3/uL (1.2-3.4); Absolute Monocyte Count 0.15 10^3/uL (0.1-0.8); Absolute Neutrophil Count 0.58 10^3/uL (1.2-6.7); Bands % 1; Metamyelocytes % 1; Myelocytes % 2; Platelet Count 3 10^3/uL (130-400)
[2022-01-12 08:02] LABS: Diff Comment Manual Differential; Hypochromasia 2+; Other Cells % 23
[2022-01-12 08:57] LABS: Bilirubin Negative (Negative); Blood Negative (Negative); Clarity Clear (Clear); Glucose Negative (Negative); Ketones Negative (Negative); Leukocyte Esterase Negative (Negative); Nitrite Negative (Negative); Specific Gravity 1.015 (1.005-1.025); Urobilinogen 0.2 EU/dL (Up TO 0.2); pH 5.5 (5-8)
[2022-01-12] MEDS: Folic Acid 1 MG TAB PO (09:09)
[2022-01-12] MEDS: Acyclovir 400 MG TAB PO ×2 (09:09→21:04)
[2022-01-12] MEDS: Omeprazole 20 MG CAPCR 40 MG PO (09:10)
[2022-01-12] MEDS: Lactobacillus Acidophilus CAP 1 CAP PO ×3 (09:10→21:04)
[2022-01-12] MEDS: Metoprolol CR 25 MG TABCR 12.5 MG PO ×2 (09:10→21:04)
[2022-01-12] MEDS: Loperamide 2 MG CAP PO (09:11)
[2022-01-12] MEDS: Ondansetron 4 MG/2 ML VIAL IVP (09:36)
--- NOTE | 2022-01-12 10:03 | DI.VRAD_ITS ---
PROCEDURE INFORMATION: Exam: XR Chest Exam date and time: 01/12/2022 6:48 AM Age: 76 years old Clinical indication: Other: Fever TECHNIQUE: Imaging protocol: XR of the chest. Views: 2 views. COMPARISON: CR XR PORTABLE CHEST AP 01/07/2022 8:34 AM FINDINGS: Tubes, catheters and devices: There is a MediPort with tip in the SVC. Lungs:The lungs are hyperinflated with changes of COPD. Patchy airspace consolidation or scarring in the lateral right lung, stable from prior. Pleural spaces: Unremarkable. No pleural effusion. No pneumothorax. Heart/Mediastinum: Unremarkable. No cardiomegaly. Bones/joints: Unremarkable. IMPRESSION: Patchy airspace consolidation or scarring in the lateral right lung, stable from prior. Dictated and Authenticated by: Eden Cabrera MD. Ordering:RANDY Garcia MD
[2022-01-12] MEDS: CEFEPIME 2 GM in Normal Saline 100 ML IVPB ×2 (10:25→21:05)
[2022-01-12] MEDS: diphenhydrAMINE 25 MG CAP PO (10:27)
--- NOTE | 2022-01-12 14:35 | PGE_ITS ---
Date of Service Date of service: 01/12/22 Time of Service: 14:35 Assessment and Plan Assessment and plan (1) Epistaxis: Status: Acute Assessment and plan: In setting of plt count of 3. Plt transfusion ordered. Will try tranexamic acid soaked cotton ball into L nares. Monitor. (2) Neutropenic fever: Status: Acute Assessment and plan: ?new RLL infiltrate. Expand abx to cefepime. Await blood culture results. UA negative. (3) Pancytopenia: Status: Acute Assessment and plan: Secondary to AML. Transfusion dependent. Transfusing blood and plts again today. Oncology guidelines for this patient suggest transfusing 1 unit of RBCs for hgb < 8 but > 7. 2 units for Hgb < 7. (4) AML (acute myeloblastic leukemia): Status: Acute Assessment and plan: [place] to be due to prior cancer treatments (breast and colon). Remains full code. Has met with palliative care. Follow up with [facility] [place] oncology as outpatient. (5) UTI (urinary tract infection): Assessment and plan: E. Coli UTI, present on admission, now resolved. (6) Discharge planning issues: Status: Acute Assessment and plan: Discharge home postponed due to fever, epistaxis, need for blood and plt transfusion. (7) DVT prophylaxis: Status: Acute Assessment and plan: Chemical and mechanical DVT ppx is contraindicated due to profound thrombocytopenia. Subjective Subjective Interval history since last seen: Developed a nose bleed this afternoon. Still bleeding. A couple of clots have come out of her nose. Plt count of 3 this am. Awaiting platelet transfusion (just arrived) as well as 1 unit of blood. Tmax 38.3 overnight. Denies dizziness, chest pain, feels a little short of breath. Denies nausea, but states her abdomen felt heavy. We discussed how she should not recline in bed but sit up. Exam Narrative Exam Narrative: General: Pleasant elderly female who looks a little pale, not actively having bleeding out of her nose at the time of my visit, NAD, mild dyspnea HEENT: EOMI, MMM, no epistaxis (externally) Heart: RRR, no m/r/g Lungs: CTAB Abdomen: soft, nontender, nondistended Extremities: no edema BLEs Objective Last Vital Signs Temp 37.2 C 01/12/22 12:36 Pulse 92 H 01/12/22 12:36 Resp 18 01/12/22 12:36 BP 101/51 L 01/12/22 12:36 Pulse Ox 100 01/12/22 12:36 Laboratory Results - last 24 hr 01/12/22 01/12/22 01/12/22 06:35 08:10 08:12 WBC 1.29 L* RBC 2.57 L Hgb 7.2 L Hct 21.7 L MCV 84.4 MCH 28.0 MCHC 33.2 RDW 14.5 Plt Count 3 L* D MPV Immature Gran % See Differential Neutrophils % 44.0 Band Neutrophils % 1 Lymphocytes % 16.0 Monocytes % 12.0 Eosinophils % 0.0 Basophils % 2.0 Metamyelocytes % 1 Myelocytes % 2 Other Cells % 23 Nucleated RBC % 0 Absolute Neutrophils 0.58 L Absolute Lymphocytes 0.21 L Absolute Monocytes 0.15 Absolute Eosinophils 0.00 Absolute Basophils 0.03 RBC Morphology See Below Hypochromasia 2+ Urine Color Yellow Urine Clarity Clear Urine pH 5.5 Ur Specific [place] 1.015 Urine Protein Negative Urine Ketones Negative Urine Blood Negative Urine Nitrite Negative Urine Bilirubin Negative Urine Urobilinogen 0.2 Ur Leukocyte Esterase Negative Urine Glucose Negative Patient ABO/Rh Cancelled Antibody Screen Crossmatch See Detail 01/12/22 08:40 WBC RBC Hgb Hct MCV MCH MCHC RDW Plt Count MPV Immature Gran % Neutrophils % Band Neutrophils % Lymphocytes % Monocytes % Eosinophils % Basophils % Metamyelocytes % Myelocytes % Other Cells % Nucleated RBC % Absolute Neutrophils Absolute Lymphocytes Absolute Monocytes Absolute Eosinophils Absolute Basophils RBC Morphology Hypochromasia Urine Color Urine Clarity Urine pH Ur Specific [place] Urine Protein Urine Ketones Urine Blood Urine Nitrite Urine Bilirubin Urine Urobilinogen Ur Leukocyte Esterase Urine Glucose Patient ABO/Rh A Positive Antibody Screen NEGATIVE Crossmatch See Detail Objective Narrative Objective Narrative: CXR: Scarring or acute infiltrate in the right lung.? Please correlate clinically.?
[2022-01-12] MEDS: Tranexamic Acid 1,000 MG/10 ML VIAL 500 MG NS (15:05)
[2022-01-12] MEDS: Normal Saline Flush 10 ML SYR IVP (21:16)
[2022-01-13] VITALS (21 sets, daily range): BP systolic 92–124; BP diastolic 49–88; PULSE 75–90; RESP 16–20; TEMP 35.8–38; O2SAT 97–100
[2022-01-13] MEDS: Loperamide 2 MG CAP PO ×2 (05:30→20:18)
[2022-01-13 06:31] LABS: Abs Immature Grans 0.12 10^3/uL (0.0-0.06); MCH 27.5 pg (27.0-33.0); MCHC 32.5 % (32.0-36.0); MCV 84.7 fL (80-95); MPV 10.1 fL (8.0-11.0); Nucleated RBC 0 %; RBC 2.29 10^6/uL (3.93-5.22); RDW 14.6 % (11.7-14.6); RDW-SD 45.6 fL
[2022-01-13 06:38] LABS: Anion Gap 5.2 mmol/L (3-11); BUN 45 mg/dL (7-18); CO2 24.8 mmol/L (21.0-32.0); CREATININE 0.9 mg/dL (0.55-1.02); Calcium 8.4 mg/dL (8.5-10.1); Chloride 103 mmol/L (98-107); Glucose 101 mg/dL (74-106); Magnesium 1.6 mg/dL (1.8-2.4); Potassium 4.1 mmol/L (3.5-5.1); Sodium 133 mmol/L (136-145)
[2022-01-13 08:03] LABS: HGB 6.3 g/dL (11.2-15.7); WBC 1.39 10^3/uL (4.4-10.8)
[2022-01-13 08:04] LABS: HCT 19.4 % (36.0-46.0)
[2022-01-13 08:05] LABS: Absolute Basophil Count 0.01 10^3/uL (0.0-0.2); Absolute Eosinophil Count 0.06 10^3/uL (0.0-0.7); Absolute Lymphocyte Count 0.19 10^3/uL (1.2-3.4); Absolute Monocyte Count 0.33 10^3/uL (0.1-0.8); Absolute Neutrophil Count 0.65 10^3/uL (1.2-6.7); Myelocytes % 1; Other Cells % 9; Platelet Count 7 10^3/uL (130-400)
[2022-01-13 08:06] LABS: Diff Comment Manual Differential; Hypochromasia 2+; Polychromasia Present
[2022-01-13] MEDS: Normal Saline Flush 10 ML SYR IVP ×3 (08:37→20:19)
[2022-01-13] MEDS: Pantoprazole 40 MG VIAL IVP ×2 (08:37→20:19)
[2022-01-13] MEDS: Metoprolol CR 25 MG TABCR 12.5 MG PO ×2 (08:37→20:18)
[2022-01-13] MEDS: Lactobacillus Acidophilus CAP 1 CAP PO ×3 (08:38→20:18)
[2022-01-13] MEDS: Folic Acid 1 MG TAB PO (08:38)
[2022-01-13] MEDS: Acyclovir 400 MG TAB PO ×2 (08:38→20:18)
[2022-01-13] MEDS: diphenhydrAMINE 25 MG CAP PO (08:38)
[2022-01-13] MEDS: Ondansetron 4 MG/2 ML VIAL IVP (09:40)
--- NOTE | 2022-01-13 14:14 | W.PM.PROGNOT ---
Date of Service Date of service: 01/13/22 Time of Service: 14:14 Assessment and Plan Assessment and plan (1) Black stool: Status: Acute Assessment and plan: Most likely etiology is due to swallowing and digesting blood from epistaxis yesterday. I cannot rule out a GI source given low plt count, however. The patient is on PPI IV BID and is receiving transfusions of both blood and plts today. I think clear liquid diet is safe given the likely etiology of the black stools not being GI related. (2) Epistaxis: Status: Resolved Assessment and plan: Resolved with use of tranexemic acid. (3) Neutropenic fever: Status: Acute Assessment and plan: ?new RLL infiltrate. Continue cefepime day 2 empirically for PNA. Blood cultures and UA are negative. (4) Pancytopenia: Status: Acute Assessment and plan: Secondary to AML; with bleeding and symptomatic anemia. Transfusion dependent. Transfusing blood and plts today. The patient is not prepared to stop transfusions. Should she need more blood and if we are unable to get her blood type, we may have to transfer her to a different hospital. Oncology guidelines for this patient suggest transfusing 1 unit of RBCs for hgb < 8 but > 7. 2 units for Hgb < 7. (5) AML (acute myeloblastic leukemia): Status: Acute Assessment and plan: [place] to be due to prior cancer treatments (breast and colon). Remains full code. Has met with palliative care. [place] [facility] [place]. (6) UTI (urinary tract infection): Assessment and plan: E. Coli UTI, present on admission, now resolved. Qualifiers: Urinary tract infection type: acute cystitis Hematuria presence: without hematuria Qualified Code(s): N30.00 - Acute cystitis without hematuria (7) Discharge planning issues: Status: Acute Assessment and plan: Discharge home postponed. If requires more blood products, may need transfer to a different facility. Palliative care on board. Remains full code and not ready to stop transfusions. (8) DVT prophylaxis: Status: Acute Assessment and plan: Chemical and mechanical DVT ppx is contraindicated due to profound thrombocytopenia and bleeding. Subjective Subjective Interval history since last seen: Had a black stool this morning. No nausea or abdominal pain. Epistaxis stopped by yesterday evening. Receiving 2 units of pRBCs and plts today. Denies dizziness, chest pain, shortness of breath. I notified Ms Alvarado that the 2 units of pRBCs were the last two units that matched her that we had in the hospital and that we did not know when the next shipment would come in given the blood shortage. The patient verbalized understanding and stated that she would be interested in being transferred to a different hospital, such as [facility], if it meant that she would live longer, even if it is by a couple of days. At this time, there is no plan to transfer her, but if her H/H drops or she rebleeds, this would need to be considered. Exam Narrative Exam Narrative: General: Pleasant elderly female, pale, no dyspnea, A&Ox3, looks comfortable. HEENT: EOMI, MMM, no epistaxis Heart: RRR, no m/r/g Lungs: CTAB Abdomen: soft, nontender, nondistended Extremities: trace edema BLEs Objective Last Vital Signs Temp 36.7 C 01/13/22 13:31 Pulse 81 01/13/22 13:31 Resp 18 01/13/22 13:31 BP 95/55 L 01/13/22 13:31 Pulse Ox 99 01/13/22 13:31 Laboratory Results - last 24 hr 01/12/22 01/13/22 01/13/22 08:40 06:05 06:05 WBC 1.39 L* RBC 2.29 L Hgb 6.3 L* Hct 19.4 L* MCV 84.7 MCH 27.5 MCHC 32.5 RDW 14.6 Plt Count 7 L* D MPV 10.1 Immature Gran % See Differential Neutrophils % 47.0 Lymphocytes % 14.0 Monocytes % 24.0 Eosinophils % 4.0 Basophils % 1.0 Myelocytes % 1 Other Cells % 9 Nucleated RBC % 0 Absolute Neutrophils 0.65 L Absolute Lymphocytes 0.19 L Absolute Monocytes 0.33 Absolute Eosinophils 0.06 Absolute Basophils 0.01 RBC Morphology See Below Polychromasia Present Hypochromasia 2+ Sodium 133 L Potassium 4.1 Chloride 103 Carbon Dioxide 24.8 Anion Gap 5.2 BUN 45 H Creatinine 0.9 Estimated GFR/1.73 m2 >= 60.00 Glucose 101 Calcium 8.4 L Magnesium 1.6 L Patient ABO/Rh A Positive Antibody Screen NEGATIVE Crossmatch See Detail
[2022-01-13] MEDS: CEFEPIME 2 GM in Normal Saline 100 ML IVPB (15:51)
[2022-01-13] MEDS: Acetaminophen 325 MG TAB PO (20:20)
[2022-01-13] MEDS: MAGNESIUM SULFATE 2 GM/50 ML BAG IVPB (20:20)
[2022-01-13 22:28] LABS: C Diff PCR Negative (Negative)
[2022-01-14] MEDS: Loperamide 2 MG CAP PO (00:52)
[2022-01-14] MEDS: Loperamide 2 MG CAP 4 MG PO ×2 (02:17→08:44)
[2022-01-14] MEDS: CEFEPIME 2 GM in Normal Saline 100 ML IVPB ×2 (04:18→16:11)
[2022-01-14 04:24] VITALS: BP 103/61; PULSE 78; RESP 20; TEMP 36.7; O2SAT 99
[2022-01-14 07:12] LABS: HCT 25.1 % (36.0-46.0); HGB 8.3 g/dL (11.2-15.7); MCH 27.6 pg (27.0-33.0); MCHC 33.1 % (32.0-36.0); MCV 83.4 fL (80-95); MPV 10.2 fL (8.0-11.0); Nucleated RBC 0 %; RBC 3.01 10^6/uL (3.93-5.22); RDW 14.5 % (11.7-14.6); RDW-SD 44.2 fL
[2022-01-14 07:20] LABS: Platelet Count 16 10^3/uL (130-400); WBC 1.85 10^3/uL (4.4-10.8)
[2022-01-14 07:32] LABS: Anion Gap 8.4 mmol/L (3-11); BUN 38 mg/dL (7-18); CO2 24.6 mmol/L (21.0-32.0); Calcium 8.4 mg/dL (8.5-10.1); Chloride 103 mmol/L (98-107); Estimated GFR 54.05 (mL/min/1.73m2); Glucose 86 mg/dL (74-106); Magnesium 2.4 mg/dL (1.8-2.4); Potassium 4.3 mmol/L (3.5-5.1); Sodium 136 mmol/L (136-145)
[2022-01-14 07:40] LABS: Diff Comment Manual Differential
[2022-01-14 07:41] LABS: Absolute Monocyte Count 0.07 10^3/uL (0.1-0.8); Absolute Neutrophil Count 1.22 10^3/uL (1.2-6.7); Atypical Lymphocytes % 5; Bands % 2; Myelocytes % 1; Other Cells % 13; RBC Morphology Normal
[2022-01-14 08:00] VITALS: BP 117/76; PULSE 74; RESP 18; TEMP 37; O2SAT 99
--- NOTE | 2022-01-14 08:23 | W.PALLCONSUL ---
Date of service: 01/14/22 [facility] All Active Problems Black stool (Acute) Neutropenic fever (Acute) Pancytopenia (Acute) Discharge planning issues (Acute) DVT prophylaxis (Acute) AML (acute myeloblastic leukemia) (Acute) Odynophagia (Acute) Palliative care patient (Acute) Leukemia (Chronic) Lung infiltrate (Acute) Breast mass (Chronic) Thrombocytopenia (Chronic) Fever and neutropenia (Acute) GI bleeding (Acute) Abnormal CT of the chest (Acute) Pancytopenia (Acute) Dyspnea on exertion (Acute) S/P recurrent ventral herniorrhaphy (Acute) pt has [id number] polypropalene mesh implanted S/P right hemicolectomy (Chronic) Diarrhea (Acute) GERD (gastroesophageal reflux disease) (Acute) Adenocarcinoma of right breast (Acute) s/p Lumpectomy S/p TAVR (transcatheter aortic valve replacement), bioprosthetic (Acute) Cancer of ascending colon metastatic to intra-abdominal lymph node (Acute) S/p Right hemicolectomy Hypertension (Chronic) History of aortic valve replacement with bioprosthetic valve (Acute) Medical History Acute CHF prior to TAVR. none since then Advance directive on file Anemia Aortic stenosis, severe s/p TAVR Factitious hyperthyroidism H/O malignant neoplasm of breast H/O malignant neoplasm of colon Hypertension Hypertension Hypomagnesemia Normocytic anemia Severe aortic stenosis s/p TAVR UTI (urinary tract infection) Surgical History H/O cardiac catheterization H/O colonoscopy H/O heart valve replacement with porcine valve History of esophagogastroduodenoscopy (EGD) History of ventral hernia repair 07/01/19 [place] [facility] [place] S/P cholecystectomy Status post closure of ileostomy Status post right breast lumpectomy Family History Mother Stroke Hypertension Son Diabetes type 2 Son Diabetes type 2 Father Cancer lung cancer - smoker Brother Cancer unknown type Social History Smoking/Tobacco Use Status: Former Tobacco Use Pack-years: 141 Tobacco: How many years used: 47 Smoking risk assessment performed?: Yes Alcohol Intake: former Drug use: Never Substance use type: does not use Current gender identity: female Do you feel safe at home: Yes Do you feel safe in your relationship?: Yes Results Last Vital Signs Temp 98.6 F 01/14/22 08:00 Pulse 74 01/14/22 08:00 Resp 18 01/14/22 08:00 BP 117/76 01/14/22 08:00 Pulse Ox 99 01/14/22 08:00 Labs Result diagrams: 01/14/22 06:30 01/14/22 06:30 Labs: Laboratory Results - last 24 hr 01/12/22 01/13/22 01/14/22 08:40 19:30 06:30 WBC RBC Hgb Hct MCV MCH MCHC RDW Plt Count MPV Immature Gran % Neutrophils % Band Neutrophils % Lymphocytes % Atypical Lymphs % Monocytes % Eosinophils % Basophils % Myelocytes % Other Cells % Nucleated RBC % Absolute Neutrophils Absolute Lymphocytes Absolute Monocytes Absolute Eosinophils Absolute Basophils RBC Morphology Sodium 136 Potassium 4.3 Chloride 103 Carbon Dioxide 24.6 Anion Gap 8.4 BUN 38 H Creatinine 1.0 Estimated GFR/1.73 m2 54.05 Glucose 86 Calcium 8.4 L Magnesium 2.4 Stl C.difficile Tox PCR Negative Patient ABO/Rh A Positive Antibody Screen NEGATIVE Crossmatch See Detail 01/14/22 06:30 WBC 1.85 L* D RBC 3.01 L Hgb 8.3 L Hct 25.1 L D MCV 83.4 MCH 27.6 MCHC 33.1 RDW 14.5 Plt Count 16 L* D MPV 10.2 Immature Gran % 0.0 Neutrophils % 64.0 Band Neutrophils % 2 Lymphocytes % 11.0 Atypical Lymphs % 5 Monocytes % 4.0 Eosinophils % 0.0 Basophils % 0.0 Myelocytes % 1 Other Cells % 13 Nucleated RBC % 0 Absolute Neutrophils 1.22 Absolute Lymphocytes 0.30 L Absolute Monocytes 0.07 L Absolute Eosinophils 0.00 Absolute Basophils 0.00 RBC Morphology Normal Sodium Potassium Chloride Carbon Dioxide Anion Gap BUN Creatinine Estimated GFR/1.73 m2 Glucose Calcium Magnesium Stl C.difficile Tox PCR Patient ABO/Rh Antibody Screen Crossmatch
[2022-01-14] MEDS: Normal Saline Flush 10 ML SYR IVP ×2 (08:44→20:51)
[2022-01-14] MEDS: Pantoprazole 40 MG VIAL IVP (08:44)
[2022-01-14] MEDS: Metoprolol CR 25 MG TABCR 12.5 MG PO ×2 (08:44→20:51)
[2022-01-14] MEDS: Folic Acid 1 MG TAB PO (08:45)
[2022-01-14] MEDS: Acyclovir 400 MG TAB PO ×2 (08:45→20:50)
[2022-01-14] MEDS: Lactobacillus Acidophilus CAP 1 CAP PO ×3 (08:45→20:50)
--- NOTE | 2022-01-14 15:50 | CMPROGNOTE_ITS ---
- If Service Date Differs Date of service: 01/14/22 Time of Service: 15:50 Care Management Progress Note S/O: Polina was lying in bed watching TV when CM met with her. She was talkative and easy to engage in conversation. She shares that she is not ready to stop transfusions and is willing to transfer to another hospital if we are unable to get more of her type blood. Per Polina her oncologist told her 1.5 months ago that she has 2 months to live. However, Polina's outlook remains positive and she wants to take it one day at a time and feels that she will know when it's time to be comfortable. Polina shares that she has started talking to her granddaughter about her health and told her that she may . Polina reports that her granddaughter did not take the news well and has been obsessed about germs. Polina's granddaughter agreed to start seeing a therapist at [facility] and has her first appointment at the end of the week. Polina feels good about this because she's been asking her granddaughter to see a therapist for 2 years. Polina shares that she raised her granddaughter who is now 21 yrs old, as her mother (who still lives in the home) is cognitively delayed. Polina shares that she is worried how her granddaughter will manage without her. A: 76 year old female admitted to [facility] on 01/07/22 for Pancytopenia, Leukemia, UTI P: Polina is being treated with IV cefapime. She is also dependent on blood transfusions. The hospital supply is getting low and Polina would like to transfer to another hospital if we are are unable to get more blood her type. Anticipate Polina will transfer to another hospital via EMS vs. discharge home via [facility] private vehicle when she is medically ready. No [facility] services per pt. Polina will follow up with her community providers and discharge plan of care. CM continues to support.
--- NOTE | 2022-01-14 16:36 | W.PM.PROGNOT ---
Date of Service Date of service: 01/14/22 Time of Service: 16:36 Assessment and Plan Assessment and plan (1) Black stool: Status: Resolved Assessment and plan: Most likely etiology is due to swallowing and digesting blood from epistaxis. I cannot rule out a GI source given low plt count, but her H/H improved as expected after the two units of pRBCs, suggesting that whatever the cause of bleeding was, it had stabilized. Switch PPI to PO BID. Advance diet. (2) Epistaxis: Status: Resolved Assessment and plan: In setting of thrombocytopenia. Recurred. Again, resolved with use of tranexemic acid. (3) Neutropenic fever: Status: Acute Assessment and plan: ?new RLL infiltrate. Continue cefepime day 2 empirically for PNA. On discharge home, would d/c with levofloxacin. Blood cultures and UA are negative. (4) Pancytopenia: Status: Acute Assessment and plan: Secondary to AML; with bleeding and symptomatic anemia. Transfusion dependent. Not receiving transfusions today. The patient is not prepared to stop transfusions, but is more willing to talk about what the end might look like. Oncology guidelines for this patient suggest transfusing 1 unit of RBCs for hgb < 8 but > 7. 2 units for Hgb < 7. (5) AML (acute myeloblastic leukemia): Status: Acute Assessment and plan: [place] to be due to prior cancer treatments (breast and colon). Remains full code. Has met with palliative care. Follow up with [facility] oncology as outpatient. (6) UTI (urinary tract infection): Assessment and plan: E. Coli UTI, present on admission, now resolved. Qualifiers: Urinary tract infection type: acute cystitis Hematuria presence: without hematuria Qualified Code(s): N30.00 - Acute cystitis without hematuria (7) Discharge planning issues: Status: Acute Assessment and plan: Discharge home planned for tomorrow after the palliative care meeting. Remains full code at this time. (8) DVT prophylaxis: Status: Acute Assessment and plan: Chemical and mechanical DVT ppx is contraindicated due to profound thrombocytopenia and bleeding. Subjective Subjective Interval history since last seen: Ms Alvarado had another nose bleed overnight which resolved with TXA. She denies dizziness, chest pain, endorses shortness of breath on exertion, denies n/v. She thinks she will be able to go home tomorrow. She is willing to talk to palliative care. She recognizes that she is in the end area. She finally told her granddaughter whom she brought up (now 21) that she has leukemia. She says the rest of her loved ones know. She says she will think about what the end looks like tonight. Exam Narrative Exam Narrative: General: Pleasant elderly female, pale, no dyspnea, A&Ox3, looks comfortable in bed. HEENT: EOMI, MMM, no epistaxis Heart: RRR, no m/r/g Lungs: CTAB Abdomen: soft, nontender, nondistended Extremities: no edema BLEs Objective Last Vital Signs Temp 37 C 01/14/22 08:00 Pulse 74 01/14/22 08:00 Resp 18 01/14/22 08:00 BP 117/76 01/14/22 08:00 Pulse Ox 99 01/14/22 08:00 Laboratory Results - last 24 hr 01/12/22 01/13/22 01/14/22 08:40 19:30 06:30 WBC RBC Hgb Hct MCV MCH MCHC RDW Plt Count MPV Immature Gran % Neutrophils % Band Neutrophils % Lymphocytes % Atypical Lymphs % Monocytes % Eosinophils % Basophils % Myelocytes % Other Cells % Nucleated RBC % Absolute Neutrophils Absolute Lymphocytes Absolute Monocytes Absolute Eosinophils Absolute Basophils RBC Morphology Sodium 136 Potassium 4.3 Chloride 103 Carbon Dioxide 24.6 Anion Gap 8.4 BUN 38 H Creatinine 1.0 Estimated GFR/1.73 m2 54.05 Glucose 86 Calcium 8.4 L Magnesium 2.4 Stl C.difficile Tox PCR Negative Patient ABO/Rh A Positive Antibody Screen NEGATIVE Crossmatch See Detail 01/14/22 06:30 WBC 1.85 L* D RBC 3.01 L Hgb 8.3 L Hct 25.1 L D MCV 83.4 MCH 27.6 MCHC 33.1 RDW 14.5 Plt Count 16 L* D MPV 10.2 Immature Gran % 0.0 Neutrophils % 64.0 Band Neutrophils % 2 Lymphocytes % 11.0 Atypical Lymphs % 5 Monocytes % 4.0 Eosinophils % 0.0 Basophils % 0.0 Myelocytes % 1 Other Cells % 13 Nucleated RBC % 0 Absolute Neutrophils 1.22 Absolute Lymphocytes 0.30 L Absolute Monocytes 0.07 L Absolute Eosinophils 0.00 Absolute Basophils 0.00 RBC Morphology Normal Sodium Potassium Chloride Carbon Dioxide Anion Gap BUN Creatinine Estimated GFR/1.73 m2 Glucose Calcium Magnesium Stl C.difficile Tox PCR Patient ABO/Rh Antibody Screen Crossmatch
[2022-01-14 17:26] VITALS: BP 84/41; PULSE 81; RESP 18; TEMP 37.5; O2SAT 98
[2022-01-14 20:47] VITALS: BP 108/41; PULSE 82; RESP 18; TEMP 37.4; O2SAT 98
[2022-01-14] MEDS: Omeprazole 20 MG CAPCR 40 MG PO (20:51)
[2022-01-15] VITALS (10 sets, daily range): BP systolic 90–121; BP diastolic 52–72; PULSE 75–89; RESP 16–19; TEMP 36–37.3; O2SAT 96–99
[2022-01-15] MEDS: CEFEPIME 2 GM in Normal Saline 100 ML IVPB ×2 (04:13→15:58)
[2022-01-15] MEDS: Normal Saline Flush 10 ML SYR IVP ×4 (04:14→20:29)
[2022-01-15 07:12] LABS: HCT 23.7 % (36.0-46.0); HGB 7.8 g/dL (11.2-15.7); MCH 28.1 pg (27.0-33.0); MCHC 32.9 % (32.0-36.0); MCV 85.3 fL (80-95); MPV 9.8 fL (8.0-11.0); Nucleated RBC 0 %; RBC 2.78 10^6/uL (3.93-5.22); RDW 14.6 % (11.7-14.6); RDW-SD 45.3 fL
[2022-01-15 07:24] LABS: Anion Gap 6.7 mmol/L (3-11); BUN 25 mg/dL (7-18); CO2 24.3 mmol/L (21.0-32.0); Calcium 8.2 mg/dL (8.5-10.1); Chloride 102 mmol/L (98-107); Estimated GFR 54.05 (mL/min/1.73m2); Glucose 95 mg/dL (74-106); Magnesium 2.1 mg/dL (1.8-2.4); Potassium 4.3 mmol/L (3.5-5.1); Sodium 133 mmol/L (136-145)
[2022-01-15 07:26] LABS: WBC 1.36 10^3/uL (4.4-10.8)
[2022-01-15 07:35] LABS: Atypical Lymphocytes % 2; Platelet Count 6 10^3/uL (130-400)
[2022-01-15 07:36] LABS: Absolute Monocyte Count 0.05 10^3/uL (0.1-0.8); Absolute Neutrophil Count 0.76 10^3/uL (1.2-6.7); Diff Comment Manual Differential; Other Cells % 25; RBC Morphology Normal
[2022-01-15] MEDS: Metoprolol CR 25 MG TABCR 12.5 MG PO ×2 (08:46→20:28)
[2022-01-15] MEDS: Lactobacillus Acidophilus CAP 1 CAP PO ×3 (08:47→20:28)
[2022-01-15] MEDS: Omeprazole 20 MG CAPCR 40 MG PO ×2 (08:47→20:28)
[2022-01-15] MEDS: Acyclovir 400 MG TAB PO ×2 (08:47→20:28)
[2022-01-15] MEDS: Folic Acid 1 MG TAB PO (08:47)
--- NOTE | 2022-01-15 15:33 | PGE_ITS ---
Date of Service Date of service: 01/15/22 Time of Service: 15:33 Assessment and Plan Assessment and plan (1) Black stool: Status: Resolved Assessment and plan: Most likely etiology is due to swallowing and digesting blood from epistaxis. I cannot rule out a GI source given low plt count. H/H stable. Will give a unit of plts. Continue PPI BID. Tolerating a diet. No endoscopy planned given goals of care. (2) Epistaxis: Status: Acute Assessment and plan: In setting of thrombocytopenia. Refusing TXA. Patient is agreeable to plt transfusion. (3) Neutropenic fever: Status: Resolved Assessment and plan: ?new RLL infiltrate. Continue cefepime day 3 empirically for PNA. On discharge tomorrow, rx levofloxacin. Blood cultures and UA are negative. (4) Pancytopenia: Status: Acute Assessment and plan: Secondary to AML; with bleeding and symptomatic anemia. Transfusion dependent. To receive plts. Patient understands blood shortage crisis. We are not transfusing blood today. (5) AML (acute myeloblastic leukemia): Status: Acute Assessment and plan: [place] to be due to prior cancer treatments (breast and colon). Met with palliative care. Getting transitioned to end of life care on [facility]. (6) UTI (urinary tract infection): Assessment and plan: E. Coli UTI, present on admission, now resolved. Qualifiers: Urinary tract infection type: acute cystitis Hematuria presence: without hematuria Qualified Code(s): N30.00 - Acute cystitis without hematuria (7) Discharge planning issues: Status: Acute Assessment and plan: DNR/DNI. Plan for discharge to [facility] tomorrow on end of life care. (8) DVT prophylaxis: Status: Acute Assessment and plan: Chemical and mechanical DVT ppx is contraindicated due to profound thrombocytopenia and bleeding. Subjective Subjective Interval history since last seen: Ms Alvarado has had another nosebleed all day. She says she hasn't told anyone. She does not want to get TXA. She wants to get platelets. She had a family meeting with care management and with palliative care. She decided to go to a [facility] for end of life care tomorrow. Denies dizziness, chest pain, shortness of breath, nausea. Had another black stool. Exam Narrative Exam Narrative: General: Pleasant elderly female, pale, no dyspnea, A&Ox3, wiping blood clots from her nose HEENT: EOMI, MMM + epistaxis L nostril Heart: RRR, no m/r/g Lungs: CTAB Abdomen: soft, nontender, nondistended Extremities: covered with blankets Objective Last Vital Signs Temp 36.4 C L 01/15/22 07:25 Pulse 76 01/15/22 07:25 Resp 16 01/15/22 07:25 BP 90/54 L 01/15/22 07:25 Pulse Ox 98 01/15/22 07:25 Laboratory Results - last 24 hr 01/15/22 01/15/22 06:20 06:20 WBC 1.36 L* RBC 2.78 L Hgb 7.8 L Hct 23.7 L MCV 85.3 MCH 28.1 MCHC 32.9 RDW 14.6 Plt Count 6 L* D MPV 9.8 Immature Gran % 0.0 Neutrophils % 56.0 Lymphocytes % 13.0 Atypical Lymphs % 2 Monocytes % 4.0 Eosinophils % 0.0 Basophils % 0.0 Other Cells % 25 Nucleated RBC % 0 Absolute Neutrophils 0.76 L Absolute Lymphocytes 0.20 L Absolute Monocytes 0.05 L Absolute Eosinophils 0.00 Absolute Basophils 0.00 RBC Morphology Normal Sodium 133 L Potassium 4.3 Chloride 102 Carbon Dioxide 24.3 Anion Gap 6.7 BUN 25 H D Creatinine 1.0 Estimated GFR/1.73 m2 54.05 Glucose 95 Calcium 8.2 L Magnesium 2.1
--- NOTE | 2022-01-15 17:33 | CMPROGNOTE_ITS ---
- If Service Date Differs Date of service: 01/15/22 Time of Service: 17:33 Care Management Progress Note S/O: Polina was lying in bed when CM met with her. She was pleasant and easy to engage in conversation. Polina has been receiving blood transfusions and platelets for some time now and the need is increasing. [facility] currently does not have blood available should she need it but does have platelets. Despite her diagnosis and poor prognosis, until now Polina has declined to change her code status. A palliative consult was conducted today by Dr. Colunga. Her son Martínez was present for the meeting ,with Polina and Dr. colunga. At that time Polina decided that she wanted to transfer to a SNF for end of life care, possibly on hospice. Due to insurance issues, hospice will not be possible but Polina will go to [facility] for end [facility] life care. She also made the decision to change her code status to DNR/DNI. A: 76 year old female admitted to [facility] on 01/07/22 for Pancytopenia, Leukemia, UTI P: Polina will likely be transferred to [facility] tomorrow for end of life care. She will be followed by Palliative Care at the facility. Her son was present for the Pallaitive Consult and is in agreement with the plan. Polina will transport via facility w/c van. CM will continue to support Polina and her family.
[2022-01-15 17:39] LABS: COVID-19 PCR Negative (Negative)
[2022-01-15 17:40] LABS: Source Nasal/Nares
[2022-01-15] MEDS: Ondansetron 4 MG/2 ML VIAL IVP (20:38)
[2022-01-15] MEDS: Acetaminophen 325 MG TAB 650 MG PO (21:11)
[2022-01-15] MEDS: diphenhydrAMINE 25 MG CAP PO (21:11)
--- NOTE | 2022-01-15 21:57 | W.PALLCONSUL ---
Date of service: 01/15/22 Time of Service: 12:25 History of Present Illness Narrative: I met with Polina and her son Martínez after discussing her case with Anitha Arteaga, OLGA LIDIA from [facility]; Dr Bateman, hospitalist service; Sierra Goddard, SHAHIDA from care management. I have seen Polina in the past, soon after she was first diagnosed with breast cancer. She has also had colon cancer and now is with end-stage AML. I reviewed Dr Crow's most recent oncology note. Polina reports that she knows she is not feeling as well as she did with transfusions. They don't give her the energy they used to. She used to need them only once per week. Now she is getting them every 2-3 days and she still feels terrible. She nauseated, dyspneic, exhausted, weak. She knows that she is coming to the end of her life. She says that Dr Crow told her this. She doesn't want to be a burden to her family. Martínez, her son, reassures her that she is not a burden to him or his SO or their daughter. Polina is very clear that she does not want to at home because she doesn't want to upset her granddaughter. Polina's , Eugenio, on hospice at [facility] in October 2021. She would like to do that, if possible, but she knows that she might not have the right insurance. She has thought about this. She feels that her time is short. She did not seem afraid or worried for herself, just for her family. Consults Consult date: 01/15/22 Requesting physician: Shameka Bateman Assessment and Plan Assessment and plan (1) Encounter for hospice care discussion: Status: Acute Assessment and plan: Polina is familiar with hospice from her 's care at Rehab. She would like it IF insurance covers any and all expenses. IF NOT, she would like comfort care at the Rehab. We were very sam in our discussion today. She has chosen to stop transfusions; she is transfusion dependent. She likely only has days to weeks left to live. (2) Goals of care, counseling/discussion: Status: Acute Assessment and plan: She wants to be comfortable. She does not want to be a burden to her family. She doesn't want to frighten her granddaughter with episodes of bleeding at home. She wants her granddaughter to have happy memories of her in her last days. She understands she might not see her again. She wants to go to Rehab. She wants to have 24/7 care available to her. (3) Epistaxis: Status: Acute Assessment and plan: At risk for even more bleeding as her platelets drop from her AML. Wants to have a plan on how to cope with this at rehab. Would prefer not to come back to the ER for this problem. (4) Black stool: Status: Resolved Assessment and plan: GI bleeding. Expects it will get worse. (5) Pancytopenia: Status: Acute Assessment and plan: Son Martínez asked if he still had to gown up when he visited. He does not. We checked with Stacie Hathaway, director of career resources for Rehab. Family can visit 24/7 as long as they wear an N-95 mask and a face shield. This is due to COVID, not pancytopenia. But will protect Polina too, at least a bit. (6) AML (acute myeloblastic leukemia): Status: Acute Assessment and plan: This will be the cause of her . She is aware. She appreciates the excellent care she had from oncology up until now. (7) Palliative care patient: Status: Acute Assessment and plan: Will continued to be followed by [facility] as Hospice is likely not an option due to insurance issues. Will send this note to my colleagues. (8) GI bleeding: Status: Acute Assessment and plan: At risk for recurrence due to her low platelets. Qualifiers: GI bleed type/associated pathology: unspecified gastrointestinal hemorrhage type Qualified Code(s): K92.2 - Gastrointestinal hemorrhage, unspecified (9) Dyspnea on exertion: Status: Acute Assessment and plan: Due to her anemia and to her cancer process. (10) S/P right hemicolectomy: Status: Chronic (11) Adenocarcinoma of right breast: Status: Acute (12) DNI (do not intubate): Status: Acute (13) DNR (do not resuscitate): Status: Acute Review of Systems Narrative: weak, fatigued, no appetite short of breath, even at rest frequent nose bleeds difficult swallowing frequent diarrhea intermittent abd pain nausea dry skin anxiety about her family no change in her vision no urinary incontinence, though worried she will have this due to [place] dry mouth Constitutional Comments: weak, fatigued, no appetite PFSH All Active Problems DNI (do not intubate) (Acute) DNR (do not resuscitate) (Acute) Goals of care, counseling/discussion (Acute) Encounter for hospice care discussion (Acute) Epistaxis (Acute) Pancytopenia (Acute) Discharge planning issues (Acute) DVT prophylaxis (Acute) AML (acute myeloblastic leukemia) (Acute) Odynophagia (Acute) Palliative care patient (Acute) Leukemia (Chronic) Lung infiltrate (Acute) Breast mass (Chronic) Thrombocytopenia (Chronic) Fever and neutropenia (Acute) GI bleeding (Acute) Abnormal CT of the chest (Acute) Pancytopenia (Acute) Dyspnea on exertion (Acute) S/P recurrent ventral herniorrhaphy (Acute) pt has [id number] polypropalene mesh implanted S/P right hemicolectomy (Chronic) Diarrhea (Acute) GERD (gastroesophageal reflux disease) (Acute) Adenocarcinoma of right breast (Acute) s/p Lumpectomy S/p TAVR (transcatheter aortic valve replacement), bioprosthetic (Acute) Cancer of ascending colon metastatic to intra-abdominal lymph node (Acute) S/p Right hemicolectomy Hypertension (Chronic) History of aortic valve replacement with bioprosthetic valve (Acute) Medical History Acute CHF prior to TAVR. none since then Advance directive on file Anemia Aortic stenosis, severe s/p TAVR Factitious hyperthyroidism H/O malignant neoplasm of breast H/O malignant neoplasm of colon Hypertension Hypertension Hypomagnesemia Normocytic anemia Severe aortic stenosis s/p TAVR UTI (urinary tract infection) Surgical History H/O cardiac catheterization H/O colonoscopy H/O heart valve replacement with porcine valve History of esophagogastroduodenoscopy (EGD) [place] of [place] [facility] [place]olecystectomy Status post closure of ileostomy Status post right breast lumpectomy Family History (Updated 01/15/22 @ 22:08 by Dorinda Beck MD) Mother Stroke Hypertension Son Diabetes type 2 Son Diabetes type 2 Father Cancer lung cancer - smoker Brother Cancer unknown type Son No problems noted. Social History (Updated 01/15/22 @ 22:13 by Dorinda Beck MD) Smoking/Tobacco Use Status: Former Tobacco Use Pack-years: 141 Tobacco: How many years used: 47 Smoking risk assessment performed?: Yes Alcohol Intake: former Drug use: Never Substance use type: does not use Caregiver/Support person: Yes Household members: family and children Housing: house Number of Children: 3 number of grandchildren: 2 Communication Needs: Hard of Hearing and Corrective Lenses Education Level: high school Do you need help understanding health information?: Always Current gender identity: female What is your relationship status?: Panel score (0-1 are the most socially isolated patients): 0 What type of physical activity do you participate in: none and bed-bound Frequency: does not exercise Special trung needs: No Agree to transfusion: No (as of her 01/15/22 visit) Seatbelt use: always Working smoke detector in home: Yes Fire extinguisher in home: Yes Do you feel safe at home: Yes Do you feel safe in your relationship?: Yes Additional Social history: Polina lives with her son Martínez, his SO and their daughter, to whom Polina is very close. This granddaughter functions at about a 10-12 yo child level, per her father, though she is 22. She is very germ-phobic and afraid of hospitals. Polina told me that her granddaughter has already said good-bye to her. Polina is aware that her days are coming to an end. She wants to be comfortable. She doesn't want to be a burden to her family. She would like to go to Rehab. She is afraid of having diarrhea and needing cleaning up in the middle of the night. She doesn't want her son to have to do this for her, though he says he would be willing. Whenever her platelets drop, she bleeds from her nose and from her bowels. She would rather nurses and LNAs care for her than her family. She was happy with the care her received at the rehab, from their staff and from hospice. She says in the past she had [employer] for Care. She doesn't know if she still has it. She thinks she might still be eligible. IF she can have her insurance cover hospice, she would want it. But she can't afford to pay for room and board at rehab on her own. She is willing to have Pall Care follow her at Rehab if she goes there on comfort measures. Exam Narrative Exam Narrative: General: Pleasant elderly female, pale, + dyspnea with extended conversation, A&Ox3, wiping blood clots from her nose HEENT: EOMI, MMM + epistaxis L nostril Heart: RRR, no m/r/g Lungs: CTAB but distant Abdomen: soft, nontender, nondistended. + BS wnl Extremities: covered with blankets Psych: no depression or anxiety. Surprisingly ready and wanting to engage in End of Life discussions, her wishes, etc. Neuro: no cognitive deficits noted. Skin: antonio, dry, + clubbing Results Last Vital Signs Temp 99.1 F 01/15/22 21:54 Pulse 75 01/15/22 21:54 Resp 18 01/15/22 21:54 BP 99/61 L 01/15/22 21:54 Pulse Ox 97 01/15/22 21:54 Labs Result diagrams: 01/15/22 06:20 01/15/22 06:20 Labs: Laboratory Results - last 24 hr 01/12/22 01/15/22 01/15/22 08:40 06:20 06:20 WBC 1.36 L* RBC 2.78 L Hgb 7.8 L Hct 23.7 L MCV 85.3 MCH 28.1 MCHC 32.9 RDW 14.6 Plt Count 6 L* D MPV 9.8 Immature Gran % 0.0 Neutrophils % 56.0 Lymphocytes % 13.0 Atypical Lymphs % 2 Monocytes % 4.0 Eosinophils % 0.0 Basophils % 0.0 Other Cells % 25 Nucleated RBC % 0 Absolute Neutrophils 0.76 L Absolute Lymphocytes 0.20 L Absolute Monocytes 0.05 L Absolute Eosinophils 0.00 Absolute Basophils 0.00 RBC Morphology Normal Sodium 133 L Potassium 4.3 Chloride 102 Carbon Dioxide 24.3 Anion Gap 6.7 BUN 25 H D Creatinine 1.0 Estimated GFR/1.73 m2 54.05 Glucose 95 Calcium 8.2 L Magnesium 2.1 COVID-19 Source SARS-CoV-2 (PCR) Patient ABO/Rh Crossmatch See Detail 01/15/22 01/15/22 06:20 16:00 WBC RBC Hgb Hct MCV MCH MCHC RDW Plt Count MPV Immature Gran % Neutrophils % Lymphocytes % Atypical Lymphs % Monocytes % Eosinophils % Basophils % Other Cells % Nucleated RBC % Absolute Neutrophils Absolute Lymphocytes Absolute Monocytes Absolute Eosinophils Absolute Basophils RBC Morphology Sodium Potassium Chloride Carbon Dioxide Anion Gap BUN Creatinine Estimated GFR/1.73 m2 Glucose Calcium Magnesium COVID-19 Source Nasal/Nares SARS-CoV-2 (PCR) Negative Patient ABO/Rh A Positive Crossmatch
[2022-01-16 00:09] VITALS: BP 99/49; PULSE 76; RESP 18; TEMP 36.5; O2SAT 98
[2022-01-16] MEDS: CEFEPIME 2 GM in Normal Saline 100 ML IVPB (04:09)
[2022-01-16] MEDS: Normal Saline Flush 10 ML SYR IVP ×3 (04:10→08:36)
[2022-01-16 05:09] VITALS: BP 106/65; PULSE 72; RESP 18; TEMP 36.6; O2SAT 100
[2022-01-16 07:39] VITALS: BP 119/71; PULSE 79; RESP 17; TEMP 36.3; O2SAT 98
[2022-01-16] MEDS: Metoprolol CR 25 MG TABCR 12.5 MG PO (08:35)
[2022-01-16] MEDS: Acyclovir 400 MG TAB PO (08:35)
[2022-01-16] MEDS: Omeprazole 20 MG CAPCR 40 MG PO (08:35)
[2022-01-16] MEDS: Lactobacillus Acidophilus CAP 1 CAP PO (08:38)
--- NOTE | 2022-01-16 08:45 | PDOC.CMPRO ---
- If Service Date Differs Date of service: 01/16/22 Time of Service: 08:45 Care Management Progress Note S/O: Polina was laying in bed when CM met with her. She is anticipating being transferred to [facility] rehab today for end of life care. CM offered to connect her with the [facility], she declines. Polina c/o frequent diarrhea this morning and would like Imodium. CM advised RN. A: 76 year old female admitted to [facility] on 01/07/22 for Pancytopenia, Leukemia, UTI P: Polina will likely be transferred to [facility] today 01/16/22 for end of life care. She will be followed by Palliative Care at the facility. Her son was present for the Pallaitive Consult and is in agreement with the plan. Polina will transport via facility w/c van. CM will continue to support Polina and her family.
[2022-01-16] MEDS: Loperamide 2 MG CAP 4 MG PO (09:51)
--- NOTE | 2022-01-16 09:55 | PDOC.CMDIS ---
- If Service Date Differs Date of service: 01/16/22 Time of Service: 09:55 LACE Index Scoring Tool - Questions: Length of Stay (in days): 4 - 6 Acuity (Admit via E.D.?): Yes Comorbidities: Any Tumor, Metastatic Solid Tumor E.D. Visits: 5 - Answers: Total Score: 16 Risk of Readmission: High Risk Care Management Discharge Reason for Hospitalization: Pancytopenia Discharge Plan: Discharge to [facility] for end of life care via EMS. Polina has chosen to stop transfusions Polina. She will continue to be followed by palliative care and wants to be comfortable. Polina will follow up with community providers as needed and discharge plan of care as prescribed. Patient/Family Education Needs: Review discharge instructions, limitations, medications and plan to follow up with palliative care. ask me three. Services Needed at Discharge: Shelter Facility ([facility]), Transportation (via EMS ([facility]))
--- NOTE | 2022-01-16 10:37 | DSE_ITS ---
Date of service: 01/16/22 Time of Service: 10:37 DS: Diagnosis Discharge Diagnosis (1) AML (acute myeloblastic leukemia): Status: Acute (2) Pancytopenia: Status: Acute (3) Epistaxis: Status: Acute (4) Black stool: Status: Resolved (5) Neutropenic fever: Status: Resolved (6) Pneumonia: Status: Acute (7) UTI (urinary tract infection): (8) Dyspnea on exertion: Status: Chronic (9) Adenocarcinoma of right breast: Status: Resolved (10) Cancer of ascending colon metastatic to intra-abdominal lymph node: Status: Resolved (11) DNR (do not resuscitate): Status: Acute (12) DNI (do not intubate): Status: Acute Discharge Plan Disposition Patient Disposition: SNF (LEVEL 1) [facility] Condition: Fair Discharge Details Reason For Visit: Pancytopenia,Luekemia Admit Date/Time: 01/12/22 09:05 Admit Provider: Jose Hayes Attending Provider: Jose Hayes Primary Care Provider: Tiana Romano Hospital Course Hospital Course: Ms Alvarado is a 76 year old female with 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 Coli UTI, present on admission. She was treated for her UTI with ceftriaxone. Her transfusion needs for both pRBCs and plts were ongoing on this admission, complicated by development of recurrent epistaxis, treated with TXA. She required a total of 6 units of pRBCS and 7 units of platelets on this admission. She had black stools, which were possibly labor service representative of her having swallowed the blood from epistaxis rather than a primary GI bleed, but this cannot be definitively clarified as she did not have endoscopy on this admission and is not a candidate for this procedure. She developed a new fever on 01/13/22. Repeat septic workup showed scarring vs acute infiltrate of the right lung. We expanded abx to cefepime with defervescence and clinical improvement. The patient completed 5 days of cefepime prior to discharge. She met with palliative care twice on this admission and ended up making a decision to go to [facility] on end-of-life care today. She will need follow up with palliative care on admission to [facility]. The patient verbalized that she was no longer interested in coming back to the hospital after her discharge. Care for patient as well as completion of her discharge summary on day of discharge took 45 minutes. Home Meds and New Rx's Prescriptions: New folic acid 1 mg Tablet 1 mg PO DAILY Qty: 0 0RF Continued acetaminophen [Tylenol Extra Strength] 500 mg tablet 1,000 mg PO TID PRN0RF loperamide [Imodium A-D] 2 mg tablet 2 mg PO QID PRN (Reason: loose stool) Qty: 60 12RF Rx Instructions: can take 2 tabs after each lose stool. do not take more than 8 in a day acyclovir 400 mg Tablet 400 mg PO BID Qty: 60 0RF Sore Throat (phenol) 1.4 % Aerosol,Honaker 180 ml mucous membrane QID PRN PRNQty: 0 0RF ondansetron 4 mg tablet,disintegrating 4 mg PO Q8H PRN (Reason: nausea and vomiting) Qty: 12 0RF metoprolol succinate 25 mg Tablet Extended Release 24 Hr 12.5 mg PO BID Qty: 30 0RF Changed omeprazole 40 mg capsule,delayed release(DR/EC) 40 mg PO BID Qty: 30 12RF Discontinued nystatin 100,000 unit/gram Powder 1 applic topical TID Qty: 60 0RF Rx Instructions: apply to reddened skin folds Discharge Instructions Instructions: Acute Myeloid Leukemia (DC), Pancytopenia (DC) Referrals: [facility] [Provider Group] Activity:: Activity as Tolerated Equipment/Supplies:: No Equipment Needed Diet:: As Tolerated Discharge Orders Discharge Orders: Discharge Order (Routine); Ordered 01/16/22 Ordered By: Shameka Bateman DS: Summary Time Spent with Patient providing and/or coordinating discharge services: Greater than 30 minutes Status at Discharge Functional status at discharge: uses cane/walker Overall status at discharge: patient is not back to baseline Mental Status: mental status grossly normal Speech and Movement: speech and movement normal Mood: congruent mood Affect: normal affect Exam Narrative Exam Narrative: General: Pleasant elderly female, pale, no dyspnea, A&Ox3 HEENT: EOMI, MMM, no active epistaxis Heart: RRR, no m/r/g Lungs: CTAB Abdomen: soft, nontender, nondistended Extremities: no edema Psych Mental Status: mental status grossly normal Speech and Movement: speech and movement normal Mood: congruent mood Affect: normal affect DS: Data Vitals/I&O Vitals and I&O: Vital Signs Temperature 36.3 C L 01/16/22 07:39 Temperature Source Tympanic 01/16/22 07:39 Pulse 79 01/16/22 07:39 Pulse Rhythm Regular 01/16/22 08:54 Pulse 86 01/07/22 09:16 Respiratory Rate 17 01/16/22 07:39 Respiratory Effort 01/16/22 08:54 Respiratory Depth Normal 01/16/22 08:54 Respiratory Pattern Normal 01/16/22 08:54 Blood Pressure 119/71 01/16/22 07:39 Blood Pressure Mean 59 01/07/22 09:16 Blood Pressure Position Supine 01/07/22 08:08 Pulse Oximetry 98 01/16/22 07:39 Oxygen Delivery Method Room Air 01/16/22 07:39 Oxygen Flow Rate 0 01/16/22 07:39 Pain Level 0 01/16/22 07:39 Comment 01/09/22 23:57 Intake & Output 01/15/22 01/15/22 01/16/22 11:59 23:59 11:59 Intake Total 170 / 440 270 / 440 587 / 587 Balance 170 / 440 270 / 440 587 / 587 Weight 63.5 kg Intake: IV 120 / 240 120 / 240 120 / 120 Oral 50 / 200 150 / 200 150 / 150 Blood Product 317 / 317 Apheresis Platelets Unit 317 / 317 [id number] Other: Urine Color Yellow Yellow Yellow Urine Appearance Clear Clear Clear Urine Odor Normal Normal Normal Comment Unknown amount, pt stated she has gone twice tonight Per patient she has been voiding pT stated that she has used the bathroom and voided. Voiding Methods Toilet Toilet Toilet Data Completed and Pending Completed studies during hospitalization [Text1]: CXR 01/07/22:As above.? Improved appearance of the previously described right sub apical lung infiltrate.No pleural effusions. Aortic TAVR again evident CXR 01/12/22: Scarring or acute infiltrate in the right lung.? Please correlate clinically.? Labs on day of discharge: Labs from last 24 hours 01/15/22 01/15/22 01/12/22 16:00 06:20 08:40 COVID-19 Source Nasal/Nares SARS-CoV-2 (PCR) Negative Patient ABO/Rh A Positive Crossmatch See Detail Preliminary micro results at discharge 01/12/22 10:10 Blood Culture - Preliminary Blood NO GROWTH 72 HOURS 01/12/22 08:40 Blood Culture - Preliminary Blood NO GROWTH 72 HOURS 01/12/22 08:25 Blood Culture - Preliminary Blood NO GROWTH 72 HOURS PFSH All Active Problems Pneumonia (Acute) DNI (do not intubate) (Acute) DNR (do not resuscitate) (Acute) Goals of care, counseling/discussion (Acute) Encounter for hospice care discussion (Acute) Epistaxis (Acute) Pancytopenia (Acute) Discharge planning issues (Acute) DVT prophylaxis (Acute) AML (acute myeloblastic leukemia) (Acute) Odynophagia (Acute) Palliative care patient (Acute) Leukemia (Chronic) Lung infiltrate (Acute) Breast mass (Chronic) Thrombocytopenia (Chronic) Fever and neutropenia (Acute) GI bleeding (Acute) Abnormal CT of the chest (Acute) Pancytopenia (Acute) Dyspnea on exertion (Chronic) S/P recurrent ventral herniorrhaphy (Acute) pt has [id number] polypropalene mesh implanted S/P right hemicolectomy (Chronic) Diarrhea (Acute) GERD (gastroesophageal reflux disease) (Acute) S/p TAVR (transcatheter aortic valve replacement), bioprosthetic (Acute) Hypertension (Chronic) History of aortic valve replacement with bioprosthetic valve (Acute) Medical History Acute CHF prior to TAVR. none since then Advance directive on file Anemia Aortic stenosis, severe s/p TAVR Factitious hyperthyroidism H/O malignant neoplasm of breast H/O malignant neoplasm of colon Hypertension Hypertension Hypomagnesemia Normocytic anemia Severe aortic stenosis s/p TAVR UTI (urinary tract infection) Surgical History H/O cardiac catheterization H/O colonoscopy H/O heart valve replacement with porcine valve History of esophagogastroduodenoscopy (EGD) History of ventral hernia repair 07/01/19 at [facility] [place] S/P cholecystectomy Status post closure of ileostomy Status post right breast lumpectomy Family History (Updated 01/15/22 @ 22:08 by Dorinda Beck MD) Mother Stroke Hypertension Son Diabetes type 2 Son Diabetes type 2 Father Cancer lung cancer - smoker Brother Cancer unknown type Son No problems noted. Social History (Updated 01/15/22 @ 22:13 by Dorinda Beck MD) Smoking/Tobacco Use Status: Former Tobacco Use Pack-years: 141 Tobacco: How many years used: 47 Smoking risk assessment performed?: Yes Alcohol Intake: former Drug use: Never Substance use type: does not use Caregiver/Support person: Yes Household members: family and children Housing: house Number of Children: 3 number of grandchildren: 2 Communication Needs: Hard of Hearing and Corrective Lenses Education Level: high school Do you need help understanding health information?: Always Current gender identity: female What is your relationship status?: Panel score (0-1 are the most socially isolated patients): 0 What type of physical activity do you participate in: none and bed-bound Frequency: does not exercise Special trung needs: No Agree to transfusion: No (as of her 01/15/22 visit) Seatbelt use: always Working smoke detector in home: Yes Fire extinguisher in home: Yes Do you feel safe at home: Yes Do you feel safe in your relationship?: Yes Additional Social history: Polina lives with her son Martínez, his SO and their daughter, to whom Polina is very close. This granddaughter functions at about a 10-12 yo child level, per her father, though she is 22. She is very germ-phobic and afraid of hospitals. Polina told me that her granddaughter has already said good-bye to her. Polina is aware that her days are coming to an end. She wants to be comfortable. She doesn't want to be a burden to her family. She would like to go to Rehab. She is afraid of having diarrhea and needing cleaning up in the middle of the night. She doesn't want her son to have to do this for her, though he says he would be willing. Whenever her platelets drop, she bleeds from her nose and from her bowels. She would rather nurses and LNAs care for her than her family. She was happy with the care her received at the rehab, from their staff and from hospice. She says in the past she had [employer] [facility]. She doesn't know if she still has it. She thinks she might still be eligible. IF she can have her insurance cover hospice, she would want it. But she can't afford to pay for room and board at rehab on her own. She is willing to have Pall Care follow her at Rehab if she goes there on comfort measures.
[2022-01-16] MEDS: Heparin 500 UNITS/5 ML SYRINGE IVP (11:52)
== END 2022-01-16 12:25 | disposition skilled nursing facility (03) | DRG 835 ==
LOC: ER 10:28 → MS 12:56
PROVIDERS: Family Medicine; Internal Medicine; Admitting Provider Family Medicine; Emergency Provider Student in an Organized Health Care Education/Training Program; PCP Nurse Practitioner Family; Visit Provider Family Medicine
DX: C92.00 Acute myeloblastic leukemia, not having achieved remission (principal); D61.818 Other pancytopenia; N30.00 Acute cystitis without hematuria; C77.2 Secondary and unspecified malignant neoplasm of intra-abdominal lymph nodes; K92.1 Melena; R04.0 Epistaxis; Z85.3 Personal history of malignant neoplasm of breast; Z85.038 Personal history of other malignant neoplasm of large intestine; I10 Essential (primary) hypertension; Z95.2 Presence of prosthetic heart valve; B96.20 Unspecified Escherichia coli [E. coli] as the cause of diseases classified elsewhere; D70.9 Neutropenia, unspecified; R50.81 Fever presenting with conditions classified elsewhere; Z66 Do not resuscitate
CPT/HCPCS: 36410; 36415; 36430; 80048; 80053; 86850; 86900; 86901; 86920; 87040; 87077; 87493; 87635; 93005; 99285; 71045; 71046; 81003; 81015; 83605; 83735; 83880; 84443; 84484; 85025; 85379; 87086; 87186; 93010; 99220; 99225; 99226; 99232; 99233; 99239; G0378; J0696; J2405; P9016; P9035

== ENCOUNTER 2022-01-14 00:42 | Outpatient (RCR) | payer MEDICARE, SELFPAY ==
[2021-12-31 08:33] LABS: Abs Immature Grans 0.12 10^3/uL (0.0-0.06); HCT 24.1 % (36.0-46.0); HGB 8.1 g/dL (11.2-15.7); MCH 29.3 pg (27.0-33.0); MCHC 33.6 % (32.0-36.0); MCV 87.3 fL (80-95); Nucleated RBC 0 %; RBC 2.76 10^6/uL (3.93-5.22); RDW 15.2 % (11.7-14.6); RDW-SD 48.6 fL; WBC 2.03 10^3/uL (4.4-10.8)
[2021-12-31 09:10] LABS: Absolute Lymphocyte Count 0.22 10^3/uL (1.2-3.4); Absolute Monocyte Count 0.16 10^3/uL (0.1-0.8); Bands % 2
[2021-12-31 09:11] LABS: Diff Comment Manual Differential; Other Cells % 12
[2021-12-31 09:12] LABS: RBC Morphology Normal
[2021-12-31 09:18] LABS: Platelet Count 3 10^3/uL (130-400)
[2022-01-01 00:15] VITALS: BP 124/72; PULSE 78; RESP 17; TEMP 37.1
[2022-01-03 09:31] LABS: HCT 22.9 % (36.0-46.0); HGB 7.6 g/dL (11.2-15.7); MCH 28.8 pg (27.0-33.0); MCHC 33.2 % (32.0-36.0); MCV 86.7 fL (80-95); RBC 2.64 10^6/uL (3.93-5.22); RDW 15.6 % (11.7-14.6); RDW-SD 49.6 fL
[2022-01-03] MEDS: Normal Saline Flush 10 ML SYR IVP (09:32)
[2022-01-03 09:37] LABS: WBC 1.83 10^3/uL (4.4-10.8)
[2022-01-03 09:47] LABS: Absolute Lymphocyte Count 0.37 10^3/uL (1.2-3.4); Absolute Monocyte Count 0.04 10^3/uL (0.1-0.8); Absolute Neutrophil Count 1.13 10^3/uL (1.2-6.7); Atypical Lymphocytes % 2; Diff Comment Manual Differential; Nucleated RBC 1 %; Other Cells % 16; Platelet Count 3 10^3/uL (130-400)
[2022-01-03 09:48] LABS: RBC Morphology Normal
[2022-01-03 11:50] VITALS: BP 108/54; PULSE 80; RESP 17; TEMP 37; O2SAT 100
[2022-01-03 12:10] VITALS: BP 125/77; PULSE 80; RESP 17; TEMP 37; O2SAT 99
[2022-01-03 12:25] VITALS: BP 98/55; PULSE 76; RESP 17; TEMP 36.6; O2SAT 99
[2022-01-03 12:55] VITALS: BP 114/53; PULSE 78; RESP 18; TEMP 36.8; O2SAT 97
[2022-01-03 13:41] VITALS: BP 117/74; PULSE 75; RESP 17; TEMP 36.9; O2SAT 100
[2022-01-03 14:17] VITALS: BP 123/88; PULSE 78; RESP 17; TEMP 37.1; O2SAT 98
== END 2022-01-28 23:59 | disposition home or self-care (01) ==
LOC: INF 00:42
PROVIDERS: PCP Nurse Practitioner Family; Visit Provider Internal Medicine Hematology & Oncology
DX: D61.818 Other pancytopenia (principal); Z45.2 Encounter for adjustment and management of vascular access device
CPT/HCPCS: 36430; 36591; 86850; 86900; 86901; 86920; 85025; P9016; P9035